=== PATIENT | male | born 1985 | race Caucasian/White ===

== ENCOUNTER 2024-03-31 09:25 | Emergency (ER) | payer OTHER, SELFPAY ==
--- NOTE | 2024-03-31 10:15 | ED.GENMED ---
History of Present Illness
General
Chief Complaint: Skin Problem
Time Seen by Provider: 03/31/24 09:47
History of Present Illness
History of Present Illness:
38-year-old male with history of substance abuse presents to the emergency department for evaluation of a nonhealing ulceration to the right heel. States he self administered a 10-day course of amoxicillin when the ulcer appeared and developed mild
redness. He went to urgent care today and was thus referred to the emergency department. Denies any fevers or chills. He is able to walk without pain
Past History
Past History
ED Past Medical History: None
ED Past Surgical History: None
Social History
Tobacco: Smoker
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
Personal: Single
Living: with family
Employment: Employed
Family History
Family History: Other (Noncontributory)
Review of Systems
Review of Systems
Allergies reviewed?: Yes
All Other Systems: ROS reviewed and negative except as documented in HPI and ROS
Phy Exam
Physical Exam
Physical Exam:
GEN: Well appearing, NAD, WDWN
HEENT: Oral mucosa moist, no scleral icterus
Cardiac: Regular rate
Lung: No respiratory distress, no tachypnea
MSK: No gross deformity or injuries
Skin: Good color, no pallor or jaundice. There is a subcentimeter superficial ulceration to the plantar aspect of the right heel with no surrounding erythema or purulent discharge
Neuro: AO x3, moves all extremities freely
Psych: Calm, cooperative
Course
Orders/Labs/Results
Orders:
Orders
03/31/24 10:59
CR Heel/os Calcis - Right 2 Vw Urgent
Comment:
Reason For Exam: plantar ulceration
03/31/24 11:12
CRP [C-Reactive Protein] Urgent
Complete Blood Count/With Diff Urgent
Comprehensive Metabolic Panel Urgent
ESR [Erythrocyte Sed Rate] Urgent
Abnormal Lab Results
03/31/24
11:12
WBC 4.0 L 10^3/uL
(4.8-10.8)
RBC 4.56 L 10^6/uL
(4.70-6.10)
Hct 38.8 L %
(39.0-52.0)
MPV 11.5 H fL
(7.4-10.4)
Monocytes % 11.3 H %
(1.7-9.3)
Chloride 97 L mmol/L
(98-107)
Carbon Dioxide 33 H mmol/L
(22-30)
Glucose 132 H mg/dl
(70-99)
AST 76 H U/L
(17-59)
ALT 92 H U/L
(0-50)
03/31/24 11:12
03/31/24 11:12
Vital Signs
Initial and Last Documented VS:
Initial Vital Signs
Temp Pulse Resp Pulse Ox
99.1 F 57 18 98
03/31/24 09:35 03/31/24 09:35 03/31/24 09:35 03/31/24 09:35
Last Documented Vital Signs
Temp Pulse Resp BP Pulse Ox
97.7 F 50 18 106/67 100
03/31/24 11:58 03/31/24 11:58 03/31/24 11:58 03/31/24 11:58 03/31/24 11:58
MDM/Problems Addressed
MDM/Problems Addressed:
Labs reassuring, no clinical concern at this time for osteomyelitis. Offloading bandages applied, discussed supportive care, recommend outpatient wound care follow-up. Counseled on drug use cessation but he is adamant that he will not cause any
undue harm with his current usage
*Critical Care Note
Total Time (30-74mins, 75-104mins- exclusive of procedures): Not Applicable
ED Attending Note
-
Portions of this chart may have been created with voice recognition software.� Occasional wrong word or��sound alike� substitutions may have occurred due to the inherent limitations of voice recognition software.
Discharge Plan
Departure
Patient Disposition: Home (Routine Discharge)
Date of Disposition: 03/31/24
Time of Disposition: 11:50
Patient with high blood pressure during this ER visit?: No
Discharge Problem:
Ulcer of right heel
Instructions: Wound Care (DC)
Referrals:
Chilo Go MD [Active] -
Interventions
Interventions:
*Risk Screen - Suicide Last Done: 03/31/24 09:35
*General Assessment Last Done: 03/31/24 09:35
*Neglect/Abuse Screening Last Done: 03/31/24 09:35
*ED COVID-19 Vaccine History Last Done: 03/31/24 12:00
*Nursing Disposition Last Done: 03/31/24 12:02
ED-Skin Assessment Last Done: 03/31/24 12:00
Discharge Date and Time
Discharge Date/Time: 03/31/24 12:05
Print Language: AZERI
[2024-03-31 11:21] LABS: % Basophils 0.8 % (0-2); % Eosinophils 1.5 % (0-6); % Lymphocytes 38.8 % (20.5-51.1); % Monocytes 11.3 % (1.7-9.3); % Neutrophils 47.6 % (42.2-75.2); Absolute Eosinophils 0.1 10^3/uL (0-0.7); Absolute Lymphocytes 1.6 10^3/uL (1.2-3.4); Absolute Monocytes 0.5 10^3/uL (0.1-0.6); Absolute Neutrophils 1.9 10^3/uL (1.4-6.5); Hematocrit 38.8 % (39.0-52.0); Hemoglobin 13.9 g/dL (13.0-18.0); Mean Corp Hgb Conc. 35.8 g/dL (33.0-37.0); Mean Corpuscular Hgb 30.5 pg (27.0-31.0); Mean Corpuscular Volume 85.1 fL (80.0-94.0); Mean Platelet Volume 11.5 fL (7.4-10.4); Nucleated Red Blood Cells % 0 % (-); Platelet Count 169 10^3/uL (130-400); Red Blood Cell Count 4.56 10^6/uL (4.70-6.10); Red Cell Dist. Width 11.9 % (11.5-14.5)
[2024-03-31 11:35] LABS: ALT (SGPT) 92 U/L (0-50); AST (SGOT) 76 U/L (17-59); Albumin 4.3 g/dl (3.5-5.0); Alkaline Phosphatase 57 U/L (38-126); Blood Urea Nitrogen 12 mg/dl (9-20); Calcium 9.8 mg/dl (8.4-10.2); Carbon Dioxide 33 mmol/L (22-30); Chloride 97 mmol/L (98-107); Glucose 132 mg/dl (70-99); Potassium 3.9 mmol/L (3.5-5.1); Sodium 140 mmol/L (135-145); Total Bilirubin 0.4 mg/dl (0.2-1.3); Total Protein 7.3 g/dl (6.3-8.2); eGFR > 60.00
[2024-03-31 11:47] LABS: C-Reactive Protein < 5.00 mg/L (0.0-10.00)
[2024-03-31 11:58] VITALS: BP 106/67
[2024-03-31 13:18] LABS: Erythrocyte Sed Rate 13 mm/hour (0-20)
== END 2024-03-31 12:05 | disposition home or self-care (01) ==
LOC: EMR 09:25
PROVIDERS: Physician Assistant; EMERGENCY PHYSICIAN Emergency Medicine
DX: L97.419 Non-pressure chronic ulcer of right heel and midfoot with unspecified severity (principal); F19.10 Other psychoactive substance abuse, uncomplicated; F17.200 Nicotine dependence, unspecified, uncomplicated
CPT/HCPCS: 99283; 73650; 80053; 85025; 85652; 86140

== ENCOUNTER 2024-12-03 11:30 | Inpatient (IN) | payer OTHER, SELFPAY ==
[2024-12-03] VITALS (47 sets, daily range): BP systolic 84–161; BP diastolic 57–134; PULSE 138–147; BMI 21.5
[2024-12-03 07:35] LABS: Glucose - Point of Care 126 mg/dl (70-99)
--- NOTE | 2024-12-03 08:03 | ED.GENMED ---
History of Present Illness
<Tate Chaudhary PA-C - Last Filed: 12/03/24 10:13>
General
Chief Complaint: Male Genito-Urinary Symptoms
Source: patient
Exam Limitations: none
Time Seen by Provider: 12/03/24 07:43
History of Present Illness
History of Present Illness:
39-year-old male presents via EMS from home where he lives with his parents. Parents noticed confusion and generalized weakness getting worse over the past 2 to 3 days. He is a known IV drug abuser admits to using fentanyl last use was yesterday.
Parents noticed that his urine was Ice-T in color. He notes generalized pain. Parents noted him to be speaking gibberish and not making sense. There was no vomiting. Patient notes pain all over including his back.
Past History
<Tate Chaudhary PA-C - Last Filed: 12/03/24 10:13>
Past History
ED Past Medical History: None
ED Past Surgical History: None
Social History
Tobacco: Smoker
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
Personal: Single
Living: with family
Employment: Employed
Family History
Family History: Other (Noncontributory)
Phy Exam
<Tate Chaudhary PA-C - Last Filed: 12/03/24 10:13>
Physical Exam
Physical Exam:
General: Unwell appearing male no acute respiratory distress
HEENT: Globally poor dentition mucosa moist pupils equal round reactive to light
Heart: Tachycardic but regular no audible murmurs
Lungs: Clear no wheeze
Abdomen is soft nontender
Extremities: Edema noted all extremities
Skin: Positive for multiple scars and track tipton
Neurologic exam: Alert oriented to person and is aware that he is in the hospital. Able to bend at the hip and knee both sides. Able to lift both arms up.
Sepsis
<Tate Chaudhary PA-C - Last Filed: 12/03/24 10:13>
Sepsis Screening
Sepsis Assessment: Sepsis
Sepsis Screen
Sepsis Screen: Sepsis
Date: 12/03/24
Time: 10:13
<Modesto Bartlett DO - Last Filed: 12/03/24 10:15>
Sepsis Screen
Sepsis Screen: Sepsis
Date: 12/03/24
Time: 10:15
Course
<Tate Chaudhary PA-C - Last Filed: 12/03/24 10:13>
Orders/Labs/Results
Orders:
Orders
12/03/24 07:41
EKG [Electrocardiogram (*1)] Urgent
Reason for Study: Tachycardia
EKG- Treatment ONCE
12/03/24 07:57
Straight cath- Treatment ONCE
0.9% Sodium Chloride 1000 ml [Nss] 1,000 ml IV BOLUS
12/03/24 07:59
CT Head W/o Iv Contrast Urgent
Comment:
Reason For Exam: altered mental status
12/03/24 08:20
Complete Blood Count/With Diff Urgent
Lactate Level [Lactic Acid] Urgent
Manual Differential Urgent
Blood Culture Q30M
[place] Source: Blood/Venous
Specimen Description:
12/03/24 08:38
Fentanyl, Urine Urgent
Urinalysis Reflex To Culture Urgent
Date Specimen was Collected: 12/03/24
Time Specimen was Collected: 08:37
Urine Drug Abuse Screen Urgent
Date Specimen was Collected: 12/03/24
Time Specimen was Collected: 08:37
Urine Microscopic Reflex Cult Urgent
Urine Culture Urgent
[place] Source: U
Specimen Description:
Date Specimen was Collected: 12/03/24
Time Specimen was Collected: 08:37
12/03/24 08:44
Add On- LAB Urgent
Tests Added?: urine drug screen
12/03/24 08:59
Promethazine [Phenergan] 25 mg 0.9% Sodium Chloride 50 ml [Nss] 50 ml IV NOW
12/03/24 09:00
Flush (0.9% Sodium Chloride) [Flush (Nss)] See Dose Instructions IV PER PROTOCOL
12/03/24 09:03
CR Chest Portable - 1 View Urgent
Comment:
Reason For Exam: cofusion
Reason Study Needs to be Portable: Unable to Transport
12/03/24 09:10
HYDROmorphone [Dilaudid] 1 mg IV NOW STA
12/03/24 09:11
Acid Fast Culture & Smear Urgent
[place] Source: Csf
Specimen Description:
CSF Cell Count Urgent
CSF Tube Number: 1
Comment: Tube #1
CSF VDRL Reflex To Titer [S] Urgent
Lyme PCR, DNA [S] Urgent
Spinal Fluid Glucose Urgent
Spinal Fluid Protein Urgent
Varicella-Zoster Virus By PCR [S] Urgent
Source: Serum
CSF Culture with Gram Stain Urgent
[place] Source: Csf
Specimen Description:
Fungus Culture Urgent
[place] Source: Csf
Specimen Description:
Gram Stain Urgent
[place] Source: Csf
Specimen Description:
12/03/24 09:13
CefTRIAXone [Rocephin] 2,000 mg IV NOW STA
12/03/24 09:15
Vancomycin 1 Gram/200 ml [Vancocin] 1 gram in 200 ml IV NOW
12/03/24 09:18
0.9% Sodium Chloride 1000 ml [Nss] 1,000 ml IV BOLUS
12/03/24 09:21
Comprehensive Metabolic Panel Urgent
Creatine Phosphokinase Urgent
Magnesium Urgent
Comment: ADD ON
Blood Culture Q30M
[place] Source: Blood/Venous
Specimen Description:
12/03/24 09:28
Sterile Water [Sterile Water For Injection] 20 ml .ROUTE .STK-MED
12/03/24 09:30
ABG [Arterial Blood Gas] Urgent
%Oxygen/Room Air: ra
12/03/24 09:58
EEG [Rapid Point of Care EEG (ED/ICU ONLY)] Q1H
Indications for use:: Altered Mental Status
12/03/24 10:05
Add On- LAB Urgent
Tests Added?: magnesium
Potassium Chloride [KCl] 40 meq 0.9% Sodium Chloride 250 ml [Nss] 250 ml IV NOW
12/03/24 10:14
INFECTIOUS DISEASE CONSULT Routine
Consulting Provider: Maryellen Irene
Was physician already notified: Yes
12/03/24 10:15
NEUROLOGY CONSULT Urgent
Consulting Provider: Earline Abdalla
Was physician already notified: Yes
Abnormal Lab Results
12/03/24 12/03/24 12/03/24
07:33 08:20 08:38
WBC 24.6 H 10^3/uL
(4.8-10.8)
MPV 12.5 H fL
(7.4-10.4)
Abs Neuts (Manual) 21.8 H 10^3/uL
(1.4-6.5)
Band Neutrophils 15 H %
(0-3)
Lymphocytes (Manual) 2 L %
(20-51)
pO2
Potassium
BUN
Creatinine
Glucose
Lactic Acid 4.1 H* mmol/L
(0.7-2.0)
Total Bilirubin
AST
ALT
Alkaline Phosphatase
Creatine Kinase
Albumin
Ur Occult Blood Reflex 3+ A
(Negative)
Leukocyte Esterase Rfl 1+ A
(Negative)
Urine RBC 7-10 A /HPF
(0-2)
Urine Bacteria (Reflex) Moderate A
(Negative)
Urine Albumin (Reflex) 2+ A
(Neg - Trace)
Urine Fentanyl Screen Positive H
(Negative)
Urine Cocaine Screen Positive H
(Negative)
POC Glucose 126 H mg/dl
(70-99)
12/03/24 12/03/24
09:30
WBC
MPV
Abs Neuts (Manual)
Band Neutrophils
Lymphocytes (Manual)
pO2 73 L mmHg
(83-108)
Potassium 3.0 L mmol/L
(3.5-5.1)
BUN 60 H mg/dl
(9-20)
Creatinine 2.0 H mg/dL
(0.7-1.3)
Glucose 124 H mg/dl
(70-99)
Lactic Acid
Total Bilirubin 1.4 H mg/dl
(0.2-1.3)
AST 484 H U/L
(17-59)
ALT 186 H U/L
(0-50)
Alkaline Phosphatase 161 H U/L
(38-126)
Creatine Kinase 998 H U/L
(55-170)
Albumin 3.2 L g/dl
(3.5-5.0)
Ur Occult Blood Reflex
Leukocyte Esterase Rfl
Urine RBC
Urine Bacteria (Reflex)
Urine Albumin (Reflex)
Urine Fentanyl Screen
Urine Cocaine Screen
POC Glucose
12/03/24 08:20
12/03/24 09:21
Vital Signs
Initial and Last Documented VS:
Initial Vital Signs
Temp Pulse Resp BP Pulse Ox
98.0 F 110 23 138/97 98
12/03/24 07:32 12/03/24 07:32 12/03/24 07:32 12/03/24 07:32 12/03/24 07:32
Last Documented Vital Signs
Temp Pulse Resp BP Pulse Ox
98.8 F 101 20 138/97 98
12/03/24 08:41 12/03/24 08:45 12/03/24 08:45 12/03/24 07:32 12/03/24 08:06
<Modesto Bartlett, DO - Last Filed: 12/03/24 10:15>
Orders/Labs/Results
Orders:
Orders
12/03/24 07:41
EKG [Electrocardiogram (*1)] Urgent
Reason for Study: Tachycardia
EKG- Treatment ONCE
12/03/24 07:57
Straight cath- Treatment ONCE
0.9% Sodium Chloride 1000 ml [Nss] 1,000 ml IV BOLUS
12/03/24 07:59
CT Head W/o Iv Contrast Urgent
Comment:
Reason For Exam: altered mental status
12/03/24 08:20
Complete Blood Count/With Diff Urgent
Lactate Level [Lactic Acid] Urgent
Manual Differential Urgent
Blood Culture Q30M
[place] Source: Blood/Venous
Specimen Description:
12/03/24 08:38
Fentanyl, Urine Urgent
Urinalysis Reflex To Culture Urgent
Date Specimen was Collected: 12/03/24
Time Specimen was Collected: 08:37
Urine Drug Abuse Screen Urgent
Date Specimen was Collected: 12/03/24
Time Specimen was Collected: 08:37
Urine Microscopic Reflex Cult Urgent
Urine Culture Urgent
[place] Source: U
Specimen Description:
Date Specimen was Collected: 12/03/24
Time Specimen was Collected: 08:37
12/03/24 08:44
Add On- LAB Urgent
Tests Added?: urine drug screen
12/03/24 08:59
Promethazine [Phenergan] 25 mg 0.9% Sodium Chloride 50 ml [Nss] 50 ml IV NOW
12/03/24 09:00
Flush (0.9% Sodium Chloride) [Flush (Nss)] See Dose Instructions IV PER PROTOCOL
12/03/24 09:03
CR Chest Portable - 1 View Urgent
Comment:
Reason For Exam: cofusion
Reason Study Needs to be Portable: Unable to Transport
12/03/24 09:10
HYDROmorphone [Dilaudid] 1 mg IV NOW STA
12/03/24 09:11
Acid Fast Culture & Smear Urgent
[place] Source: Csf
Specimen Description:
CSF Cell Count Urgent
CSF Tube Number: 1
Comment: Tube #1
CSF VDRL Reflex To Titer [S] Urgent
Lyme PCR, DNA [S] Urgent
Spinal Fluid Glucose Urgent
Spinal Fluid Protein Urgent
Varicella-Zoster Virus By PCR [S] Urgent
Source: Serum
CSF Culture with Gram Stain Urgent
[place] Source: Csf
Specimen Description:
Fungus Culture Urgent
[place] Source: Csf
Specimen Description:
Gram Stain Urgent
[place] Source: Csf
Specimen Description:
12/03/24 09:13
CefTRIAXone [Rocephin] 2,000 mg IV NOW STA
12/03/24 09:15
Vancomycin 1 Gram/200 ml [Vancocin] 1 gram in 200 ml IV NOW
12/03/24 09:18
0.9% Sodium Chloride 1000 ml [Nss] 1,000 ml IV BOLUS
12/03/24 09:21
Comprehensive Metabolic Panel Urgent
Creatine Phosphokinase Urgent
Magnesium Urgent
Comment: ADD ON
Blood Culture Q30M
[place] Source: Blood/Venous
Specimen Description:
12/03/24 09:28
Sterile Water [Sterile Water For Injection] 20 ml .ROUTE .STK-MED
12/03/24 09:30
ABG [Arterial Blood Gas] Urgent
%Oxygen/Room Air: ra
12/03/24 09:58
EEG [Rapid Point of Care EEG (ED/ICU ONLY)] Q1H
Indications for use:: Altered Mental Status
12/03/24 10:05
Add On- LAB Urgent
Tests Added?: magnesium
Potassium Chloride [KCl] 40 meq 0.9% Sodium Chloride 250 ml [Nss] 250 ml IV NOW
12/03/24 10:14
INFECTIOUS DISEASE CONSULT Routine
Consulting Provider: Maryellen Irene
Was physician already notified: Yes
12/03/24 10:15
NEUROLOGY CONSULT Urgent
Consulting Provider: Earline Abdalla
Was physician already notified: Yes
Abnormal Lab Results
12/03/24 12/03/24 12/03/24
07:33 08:20 08:38
WBC 24.6 H 10^3/uL
(4.8-10.8)
MPV 12.5 H fL
(7.4-10.4)
Abs Neuts (Manual) 21.8 H 10^3/uL
(1.4-6.5)
Band Neutrophils 15 H %
(0-3)
Lymphocytes (Manual) 2 L %
(20-51)
pO2
Potassium
BUN
Creatinine
Glucose
Lactic Acid 4.1 H* mmol/L
(0.7-2.0)
Total Bilirubin
AST
ALT
Alkaline Phosphatase
Creatine Kinase
Albumin
Ur Occult Blood Reflex 3+ A
(Negative)
Leukocyte Esterase Rfl 1+ A
(Negative)
Urine RBC 7-10 A /HPF
(0-2)
Urine Bacteria (Reflex) Moderate A
(Negative)
Urine Albumin (Reflex) 2+ A
(Neg - Trace)
Urine Fentanyl Screen Positive H
(Negative)
Urine Cocaine Screen Positive H
(Negative)
POC Glucose 126 H mg/dl
(70-99)
12/03/24 12/03/24
09:21 09:30
WBC
MPV
Abs Neuts (Manual)
Band Neutrophils
Lymphocytes (Manual)
pO2 73 L mmHg
(83-108)
Potassium 3.0 L mmol/L
(3.5-5.1)
BUN 60 H mg/dl
(9-20)
Creatinine 2.0 H mg/dL
(0.7-1.3)
Glucose 124 H mg/dl
(70-99)
Lactic Acid
Total Bilirubin 1.4 H mg/dl
(0.2-1.3)
AST 484 H U/L
(17-59)
ALT 186 H U/L
(0-50)
Alkaline Phosphatase 161 H U/L
(38-126)
Creatine Kinase 998 H U/L
(55-170)
Albumin 3.2 L g/dl
(3.5-5.0)
Ur Occult Blood Reflex
Leukocyte Esterase Rfl
Urine RBC
Urine Bacteria (Reflex)
Urine Albumin (Reflex)
Urine Fentanyl Screen
Urine Cocaine Screen
POC Glucose
12/03/24 08:20
12/03/24 09:21
Vital Signs
Initial and Last Documented VS:
Initial Vital Signs
Temp Pulse Resp BP Pulse Ox
98.0 F 110 23 138/97 98
12/03/24 07:32 12/03/24 07:32 12/03/24 07:32 12/03/24 07:32 12/03/24 07:32
Last Documented Vital Signs
Temp Pulse Resp BP Pulse Ox
98.8 F 101 20 138/97 98
12/03/24 08:41 12/03/24 08:45 12/03/24 08:45 12/03/24 07:32 12/03/24 08:06
<Tate Chaudhary PA-C - Last Filed: 12/03/24 10:13>
MDM/Problems Addressed
Differential Diagnosis Includes:
Generalized weakness confusion in the setting of an IV drug abuser. He is tachycardic. Oral temp is normal will check rectal temp. Consider sepsis versus rhabdomyolysis. CT head ordered. Check lactic acid and blood cultures. Discussed with
emergency room attending
<Tate Chaudhary PA-C - Last Filed: 12/03/24 10:13>
*Pulse Oximetry
SaO2: 98
Oxygen Mode of Delivery: Room air
<Modesto Bartlett DO - Last Filed: 12/03/24 10:15>
*Radiology
Radiology exam reviewed: preliminary read by ED provider
*Pulse Oximetry
Patient hypoxic: no
*Critical Care Note
Total Time (30-74mins, 75-104mins- exclusive of procedures): 45
<Tate Chaudhary PA-C - Last Filed: 12/03/24 10:13>
Update Note
Update Note:
White blood cell count 24,000. Lactic acid 4.1. CT of the head reviewed and shows possible foci of petechial hemorrhages. Chest x-ray clear. Patient given 2 L of fluid. Was considering lumbar puncture however after discussion with emergency
room attending we will hold off given CT findings. Antibiotics ordered by emergency room attending. Will admit to hospital. Drug screen positive for fentanyl and cocaine.
ED Attending Note
<Tate Chaudhary PA-C - Last Filed: 12/03/24 10:13>
-
Portions of this chart may have been created with voice recognition software.� Occasional wrong word or��sound alike� substitutions may have occurred due to the inherent limitations of voice recognition software.
<Modesto Bartlett DO - Last Filed: 12/03/24 10:15>
ED Attending Note
Patient seen and examined by attending physician: Yes
I performed the substantive portion of visit, reviewed & personally made and approve the management plan that is documented in note by myself or RIGOBERTO.: Yes
ED Attending Note:
Seen with TAMARA examined independently 39-year-old male disabled drug user lives with his parents, uses IM fentanyl been in rehab numerous times before mother states about 2 days ago developed fever chills and thought it was the flu, has not kept any
fluids down no drugs for 36 hours or so, here he looks ill he is babbling he is afebrile spitting up, has pain with flexion of the neck
Differential includes bacteremia withdrawal rhabdo CSF infection epidural abscess discitis pneumonia endocarditis etc.
Reviewed my thoughts with family started volume resuscitation, ABG chest x-ray
My initial thought was to do a spinal tap, CT scan noted report reviewed, will hold on LP based upon CT report will proceed with antibiotics and urgent EEG
Discharge Plan
Departure
Patient Disposition: Admit
Date of Disposition: 12/03/24
Time of Disposition: 10:13
Presentation/result/management discussed w/ accepting MD/DO: Hospitalist
Discharge Problem:
Sepsis
Referrals:
Pj Watson MD [Primary Care Provider]
Interventions
Interventions:
*Risk Screen - Suicide Last Done: 12/03/24 07:32
*General Assessment Last Done: 12/03/24 07:32
*Neglect/Abuse Screening Last Done: 12/03/24 07:32
*ED- Fall Risk Assessment Last Done: 12/03/24 07:32
ED-Male Genitourinary Assessment Last Done: 12/03/24 08:42
Discharge Date and Time
Print Language: LATVIAN
--- NOTE | 2024-12-03 08:21 | EDRN ---
Patient's mom states that patient does fentanyl, and father states that his usage has decreased. Patient then stated that he only does fentanyl.
[2024-12-03] MEDS: NSS 1000 IV ×4 (08:27→18:45)
[2024-12-03 08:36] LABS: Hematocrit 43.2 % (39.0-52.0); Hemoglobin 15.9 g/dL (13.0-18.0); Mean Corp Hgb Conc. 36.8 g/dL (33.0-37.0); Mean Corpuscular Volume 81.5 fL (80.0-94.0); Nucleated Red Blood Cells % 0 % (-); Platelet Count 155 10^3/uL (130-400); Red Cell Dist. Width 12.8 % (11.5-14.5)
[2024-12-03 08:49] LABS: Urine Character Clear (Clear)
[2024-12-03 09:03] LABS: Absolute Neutrophils -Man Diff 21.8 10^3/uL (1.4-6.5)
[2024-12-03 09:04] LABS: Normal RBC Morphology Yes; Platelets Checked Yes; Total Cells Counted 100
[2024-12-03 09:06] LABS: Urine Squamous Cell 0-2 /LPF (Few)
[2024-12-03] MEDS: PHENERGAN 51 MG IV (09:24)
[2024-12-03 09:36] LABS: B.E. 0 mmol/L; HCO3 23.9 mmol/L (21-28); O2 Saturation % 97.3 % (94-98); PCO2 36 mmHg (35-48); PO2 73 mmHg (83-108)
[2024-12-03] MEDS: DILAUDID 1 MG IV ×3 (09:36→14:49)
[2024-12-03 09:56] LABS: AST (SGOT) 484 U/L (17-59); Albumin 3.2 g/dl (3.5-5.0); Alkaline Phosphatase 161 U/L (38-126); Blood Urea Nitrogen 60 mg/dl (9-20); Calcium 8.6 mg/dl (8.4-10.2); Carbon Dioxide 24 mmol/L (22-30); Chloride 101 mmol/L (98-107); Estimated Creatinine Clearance 56 ml/min; Glucose 124 mg/dl (70-99); Potassium 3.0 mmol/L (3.5-5.1); Sodium 137 mmol/L (135-145); Total Protein 6.3 g/dl (6.3-8.2); eGFR 43.27
[2024-12-03 10:07] LABS: ALT (SGPT) 186 U/L (0-50)
--- NOTE | 2024-12-03 10:12 | CON.NEURO ---
Consultation
Order
Date of Consultation: 12/03/24
Requesting Provider:
Reason for Consult:
Neurology Consultation Note.
HPI: This is a 39-year-old right-handed man who presented to [facility] on 12/03/2024 with encephalopathy.
According to patient's mother Mr. Alonzo was in his usual state of health until Wednesday. On , he began complaining of whole-body pain while still communicating normally. That evening, he reported feeling dizzy, which his parents initially
attributed to a possible flu. Janj-its-qepiohz pain medications (ibuprofen and acetaminophen) were administered but provided little relief. By Wednesday morning, the pain had intensified significantly, rendering the patient unable to stand, hold his
head up, or lift his arms. Even slight touch elicited complaints of excruciating pain.
The patient's mental status deteriorated on Wednesday, with his speech becoming incoherent and described as 'gibberish' by his parents. He lost the ability to communicate his need to use the restroom, initially using a bucket when prompted but later
becoming incontinent. The patient has been unable to eat normally since the onset of symptoms, with his mother reporting only being able to spoon-feed him small amounts of custard.
The patient has a history of substance use, including past IV heroin use and current fentanyl use (reportedly intramuscular). He also vapes and drinks alcohol. The patient experienced fever at home, though the exact temperature was not specified.
ER VS: 138/97, 110, afebrile.
EKG:NSR, ventr rate-97, QTc Int : 535 ms
PDMP:none
Labs: WBCs�24.6, normal sodium, creatinine�2.0, glucose�124, lactic acid�4.1, bilirubin�1.4, AST�484, ALT�186, alk phos�161, creatinine kinase�998.
UA�positive RBCs, leukocyte esterase 1+, occult blood. Urine tox�positive for fentanyl.
CXR: unremarkable
CT head wo contrast-Possible cortical petechial hemorrhages in the left frontal lobe and left occipital lobe. Possible small old infarct, periventricular small vessel ischemic disease or edema due to underlying mass in the left occipital lobe.
MAR: Ceftriaxone 2 g,, vancomycin, hydromorphone 1 mg given at 9:36 AM today,
PMH: Opioid use disorder
PSH:jaw wiring', hernia surgery
SH: single; lives with parents; unemployed; does not drive; vapes, high school graduate
FH:Mother: Breast cancer, diabetes, hypertension, hypercholesterolemia; Father: Hypertension, hypercholesterolemia, diabetes
All:NKDA
ROS: Positive for encephalopathy, allodynia
General: Well developed. In no acute distress.
Cardio: Regular rate and rhythm without murmur. Extremities are without cyanosis or edema.
Neuro:
Mental Status: Alert, attends to examiner. Moderate to severe expressive and receptive aphasia. Does not follow requests.
Cranial Nerves: Orthophoric primary gaze. Pupils 4mm, reactive to light. Horizontal EOMs full. BTT L<R?. No clear facial weakness. Intermittent mild dysarthria.
Motor: Increased motor tone at the wrists.
Reflexes: Limited exam due to tremor appears to be hyperreflexic with clonus at the ankles.
Sensory: Generalized allodynia
Coordination: Postural tremor in upper and lower extremities.
Gait: deferred
Assessment and Plan:
I. Multifactorial encephalopathy (toxic, metabolic, infectious)
II. Left occipital edema vs infarct
III. Opioid use disorder
IV. Prolonged QTc interval
- Telemetry monitoring
- Seizure precautions
- Start thiamine IV
- Routine EEG
- Ativan 2 mg IV PRN for seizures lasting over 2 mins.
- Brain MRI with and without krystle NEERU
- Please check Tylenol level, trend CK, ammonia TFTs, Lyme, HIV, vitamin B12
- Addiction psychiatry consult
- ID consult
I personally reviewed all radiology and labs along with past medical records pertinent to current medical problems. Total time spent in patient care is 60 minutes.
Thank you for allowing us to participate in the care of this patient. We will continue to follow. Please do not hesitate to contact us with any questions or concerns.
Subjective/Objective
Subjective Data
Date of Service: December 03, 2024
Objective Data
Vital Signs
Temp Pulse Resp BP Pulse Ox
37.1 C 101 20 138/97 98
12/03/24 08:41 12/03/24 08:45 12/03/24 08:45 12/03/24 07:32 12/03/24 08:06
Lab Results
12/03/24 08:20
12/03/24 09:21
Sodium 137 mmol/L (135-145) 12/03/24 09:21
Potassium 3.0 mmol/L (3.5-5.1) L 12/03/24 09:21
BUN 60 mg/dl (9-20) H 12/03/24 09:21
Glucose 124 mg/dl (70-99) H 12/03/24 09:21
Calcium 8.6 mg/dl (8.4-10.2) 12/03/24 09:21
Ur Buprenorphine Negative (Negative) 12/03/24 08:38
Patient Allergies
No Known Drug Allergies Allergy (Verified 04/23/15 12:01)
Unknown
Medications
-
Active Medications
Generic Name Dose Route Start Last Admin
Trade Name Freq PRN Reason Stop Dose Admin
Vancomycin HCl 1 gram in 200 mls @ 200 mls/hr 12/03/24 09:15
Vancocin IV 12/03/24 10:14
NOW STA
Potassium Chloride 40 meq/ 270 mls @ 67.5 mls/hr 12/03/24 10:05
Sodium Chloride IV 12/03/24 14:04
NOW STA
Sodium Chloride 0 flush 12/03/24 09:00
Sodium Chloride 0.9% (Flush) Syringe IV 12/31/24 08:59
PER PROTOCOL JENNIFER
[2024-12-03] MEDS: ROCEPHIN 2000 MG IV (10:14)
[2024-12-03 10:16] LABS: Magnesium 2.1 mg/dl (1.6-2.3)
--- NOTE | 2024-12-03 10:40 | CM ---
CM reviewed chart, met with pt and his parents bedside in ED. Lives with parents, 2 story home, [address].
Independent in ADLs, personal care and ambulation at baseline. NO DME. NO hx VN/SNF.
Does admit to using Fentanyl, UDS positive Fentanyl and Cocaine
PCP: Pj Watson listed, parents unsure if this is correct
Pharmacy: [facility] [place]
CM will continue to follow for discharge planning needs
[2024-12-03] MEDS: KCL 270 MEQ IV ×2 (11:03→17:32)
[2024-12-03] MEDS: VANCOCIN 540 MG IV (11:03)
--- NOTE | 2024-12-03 11:53 | HPS.HSE ---
Family Physician
-
Family Physician: Pj Watson MD
Chief Complaint
-
Confusion
History of Present Illness
39-year-old man presents via EMS from home where he lives with his parents. His parents noticed confusion and generalized weakness becoming worse over the past 2 to 3 days. He is a known IV drug abuser admits to using fentanyl, with last use being
yesterday. His parents also saw that his urine was Ice-T in color. In the ER, he said he had generalized pain. His parents also reported that he was speaking gibberish and not making sense. There was no vomiting. Patient notes that he
complaints of pain all over including his back. At the time of my interview, he was confused and unable to provide more of a history.
Medical History
Past Medical History
Past Medical History: Reports Other (polysubstance depence and abuse)
Additional Past Medical History:
polysubstance abuse
MRSA bacterimia
Past Surgical History: Reports None
Social History
Unable to obtain full social history at this time due to: Acuity
Family History
Family History: Not pertinent
Allergies / Home Medications
Allergies reflects when Allergies were last updated in [facility].
Home Medications with original date entered in [facility]
Allergy/Medication List:
Allergies
Allergy/AdvReac Type Severity Reaction Status Date / Time
No Known Drug Allergies Allergy Unknown Verified 12/03/24 11:44
Home Medications
Fiber-Caps (psyllium husk) 500 mg PO DAILY 12/03/24
Review of Systems
-
Unable to obtain full review of systems at this time due to: Acuity
Physical Exam
Vital Signs
Vital Signs
Temp Pulse Resp BP Pulse Ox
98.8 F 103 21 132/84 99
12/03/24 08:41 12/03/24 11:30 12/03/24 11:30 12/03/24 11:00 12/03/24 10:15
Physical Exam
General: Well Developed, Well Nourished, Appears in Distress, Fever and Appears Chronically Ill
HEENT: Moist mucous membranes, Nose Appears Normal and Ears Appear Normal; No Good Dentition
Respiratory: Clear
Cardiac: S1/S2 and Regular Rhythm
GI: Soft, Non Tender and Non Distended
Musculoskeletal: No Clubbing and No Cyanosis
Skin: Warm and Dry
Neuro: Awake and Alert
Psych: Confused and Agitated
Laboratory Results
-
12/03/24 08:20
12/03/24 09:21
Laboratory Results
pH 7.43 (7.35-7.45) 12/03/24 09:30
pCO2 36 mmHg (35-48) 12/03/24 09:30
pO2 73 mmHg (83-108) L 12/03/24 09:30
HCO3 23.9 mmol/L (21-28) 12/03/24 09:30
Lactic Acid 4.1 mmol/L (0.7-2.0) H* 12/03/24 08:20
Total Bilirubin 1.4 mg/dl (0.2-1.3) H 12/03/24 09:21
AST 484 U/L (17-59) H 12/03/24 09:21
ALT 186 U/L (0-50) H 12/03/24 09:21
Alkaline Phosphatase 161 U/L (38-126) H 12/03/24 09:21
Data Reviewed
-
Lab Data: Labs Reviewed by me
Impression/Plan
-
IMPRESSION:
39 man with confusion and h/o polysubstance abuse. Notable findings:
WBC 24.6
K 3.0
BUN/Creat 60/2.0
AST/ALT 484/186
UA appears infected
CK 998
Tox + for fentanyl and cocaine
CT shows possible brain mass
PLAN:
1. Sepsis, with Lactic acid 4.1, WBC 24.6, source could be IV/IMDU or Urine, or teeth
IV saline per sepsis protocol
Blood cultures
Broad spectrum abx
ID consult
Echo
2. Probable Rhabdo with CK 998, AST/ALT 484/186
High volume saline
Check daily and follow trend
3. Confusion - LP deferred given possible mass seen on CT
Neuro consult
MRI in am
psych consult when medically stable
4. Polysubstance use/abuse with probable withdrawal
Opioid W/D protocol
Psych consult when medically stable and able to engage in interview
5. Low K - likely decrease PO intake
Replete
Check daily, replee as needed.
Full code
VCD for DVTp
--- NOTE | 2024-12-03 12:58 | PHA.VAN.IN ---
Assessment
- Assessment
Renal Function: SCR Appears Elevated from baseline (2.0)
Maximum Temperature: 98.8
Minimum Temperature: 98
Concomitant Antimicrobials: piperacillin/tazobactam
Historical Micro: History of MRSA infection (05.11.2011)
Plan
- Plan
Initial / Loading Dose: vancomycin 2000 mg x 1
Maintenance Regimen: dose by level
Monitoring: random level ordered for 12/04 @ 0600
Pharmacokinetics Vancomycin I
- -
Patient Age: 39
Patient Sex: Male
Vancomycin Day #: 1
Indication: Bacteremia
Requesting Provider: Dr. Fofana
Pertinent Antimicrobial Allergies:
nkda
Height / Weight:
Height 6 ft 2 in
Actual Weight 77.8 kg
IBW in k.2
Pertinent Past Medical History: IV drug use
- Vital Signs / Lab Results
Temp Pulse Resp BP Pulse Ox
98.8 F 122 19 139/85 96
12/03/24 08:41 12/03/24 12:30 12/03/24 12:30 12/03/24 12:00 12/03/24 12:30
Lab Results - Hematology
12/03/24
08:20
WBC 24.6 H
Band Neutrophils 15 H
Lab Results - Chemistry
12/03/24 12/03/24
08:20 09:21
BUN Cancelled 60 H
Creatinine Cancelled 2.0 H
Estimated Creat Clear Cancelled 56
Albumin Cancelled 3.2 L
12/03/24 12/03/24
08:20 12:25
Lactic Acid 4.1 H* 3.3 H
Lab Results - Urine
12/03/24
08:38
Urine Nitrite (Reflex) Negative
Leukocyte Esterase Rfl 1+ A
Urine WBC (Reflex) 3-5
Ur Squamous Epith Cells 0-2
Urine Bacteria (Reflex) Moderate A
[2024-12-03] MEDS: THIAMINE INJECTION 100 MG IV (13:28)
[2024-12-03] MEDS: ZOSYN 100 IV ×3 (13:32→23:33)
--- NOTE | 2024-12-03 13:50 | EDRN ---
MRI called for this patient today. Patient has vomited about five times in the past hour to 1.5 hours. Patient not safe to go to MRI today. Parents made aware and Dr. Fofana also made aware.
[2024-12-03] MEDS: SUBUTEX 8 MG SL (13:52)
--- NOTE | 2024-12-03 13:55 | CON.ID ---
Consultation
-
Date/Time Consultation Requested: December 03, 2024 1014
Date/Time Consultation Performed: December 03, 2024 1400
Requesting Provider: Dr. Jim Fofana
Performing Provider: Dr. Maryellen Irene
Reason for Consultation: IV drug user, change in mental status
Chief Complaint / Past History
Chief Complaint
Change in mental status
History of Present Illness
History obtained from the patient's parents at bedside since patient currently unable to provide a full meaningful history. He is a 39-year-old male with polysubstance abuse who is currently skin/muscle popping with fentanyl who was brought to the
ER today for worsening mental status. Parents noted patient shaking on November 30 attributing to drug withdrawal. He was complaining of diffuse body pain. Patient's mental status was fine at that time. However he continued to decline,
unable to ambulate. Yesterday noted to have confusion and change in mental status. Per father, patient was speaking in [place] last night. This morning speech was incoherent. No fever at home. Patient feels cold by touch. In the ER afebrile.
White count 24.6 with bandemia. Chest x-ray negative. CT head scan shows possible cortical petechial hemorrhage and possible mass occipital lobe. Urine drug screen positive for cocaine and fentanyl. Parents are not aware that he is currently
using cocaine. Last fentanyl use was yesterday. Blood cultures obtained. He is currently on vancomycin and Zosyn. TTE has been ordered. In ED he vomited x 4. No cough. No ill contacts. Patient stays inside majority of the time.
Past History
Additional Past Medical History:
polysubstance abuse; fentanyl muscle popping
h/o IV heroine
h/p strep virdians bacteremia (2010)
hx MRSA soft tissue abscesses (2010)
Additional Past Surgical History:
hernia repair
bilateral mandibular fracture wiring
Allergy History:
No Known Drug Allergies Allergy (Verified 12/03/24 11:44)
Unknown
Medications Reviewed: Yes
Current Antibiotics:
Zosyn
Vancomycin
Social History
Tobacco: Vaping
Alcohol: None
Drug: Former User (IV heroin), Cocaine and Other (Fentanyl popper)
Personal: Single
Living: With Family
Employment: Not Employed
Review of Systems
Review of Systems
Unable to obtain as patient currently confused.
Vital Signs
Temp Pulse Resp BP Pulse Ox
98.8 F 123 27 147/105 97
12/03/24 08:41 12/03/24 13:30 12/03/24 13:30 12/03/24 13:30 12/03/24 13:30
Physical Exam
Physical Exam
Constitutional: Acutely Ill
Head: Other (No frontal or max or sinus tenderness)
Oral: Poor Dentition
Cardiovascular: S1/S2 and Other (Tachycardic)
Pulmonary: Clear
Gastrointestinal: Soft, Non Tender, Non Distended and Normal Bowel Sounds
Extremities: Negative Edema
Skin: Other (Bilateral lower extremities multiple scabs from injection use)
Neurological: Tremors (whole body shaking) and Other (Incoherent speech); Negative Meningeal Signs
Psychological: Confused
Lab / Diagnostic Study Results
12/03/24 08:20
12/03/24 09:21
Total Counted 100 12/03/24 08:20
Abs Neuts (Manual) 21.8 10^3/uL (1.4-6.5) H 12/03/24 08:20
Segmented Neutrophils 74 % (42-75) 12/03/24 08:20
Band Neutrophils 15 % (0-3) H 12/03/24 08:20
Lymphocytes (Manual) 2 % (20-51) L 12/03/24 08:20
Lactic Acid 3.3 mmol/L (0.7-2.0) H 12/03/24 12:25
Ur Squamous Epith Cells 0-2 /LPF (Few) 12/03/24 08:38
Microbiology Results
Micro:
12/03/24 09:21 Blood Culture - Pending
Blood/Venous
12/03/24 08:38 Urine Culture - Pending
Urine
12/03/24 08:20 Blood Culture - Pending
Blood/Venous
12/03/24 CXR: Clear lungs.
12/03/[address]: Possible cortical petechial hemorrhages in the left frontal lobe and left occipital lobe. Possible small old infarct, periventricular small vessel ischemic disease or edema due to underlying mass in the left occipital lobe.
Assessment / Plan
# Acute encephalopathy
# Weakness
# Leukocytosis/bandemia
# Polysubstance abuse (cocaine and fentanyl skin/muscle popper)
# Drug withdrawal
# hx MRSA
- CT head possible petechial hemorrhage
- Concern for IE with TRAVEL PTA septic emboli
- For brain MRI
- Agree with TTE
- Follow blood cultures
- Continue with Vancomycin and Zosyn for now.
- (I dc'd serum Lyme PCR ordered by neurologist, not appropriate test for Lyme disease. In addition, pt's condition is not due to Lyme)
- Monitor closely.
- Trend wbc, temps.
[2024-12-03 14:47] LABS: Acetaminophen < 10 ug/ml (10-30)
[2024-12-03 14:52] LABS: Glucose - Point of Care 121 mg/dl (70-99)
--- NOTE | 2024-12-03 14:53 | EDRN ---
Dr. Fofana at bedside for reassessment.
[2024-12-03] MEDS: DILAUDID 2 MG IV ×4 (15:10→20:20)
[2024-12-03] MEDS: BELBUCA 300 MCG BUCCAL ×3 (15:30→23:33)
--- NOTE | 2024-12-03 15:33 | CON.INTV ---
Consultation
Consultation Request
Date/Time Consultation Requested: 12/03
Date/Time Consultation Performed: 12/03
Reason for Consultation: Critical care
Medical History
-
History of Present Illness:
History primarily obtained from the parents at the bedside, reviewing with the ED staff, reviewing the records. Patient is unable to give significant history as he is currently tremulous, with nausea, dry heaving. Patient is a 39-year-old male
with history of significant drug use since the age of 20 according to the family. He uses fentanyl pretty much on a daily basis. Family states that he had fevers on prior to admission and complained of generalized bodyaches, joint pains.
They thought it was the flu. Since then symptoms worsened to the point where over the last few days he has had change in mental status, tremulous, and now speaking gibberish. For this reason they brought him into [facility]. Upon arrival
to [facility], afebrile, pulse 110, breathing at 23, blood pressure 138/97, 98%. Patient was given Phenergan, Dilaudid, ceftriaxone, vancomycin, IV fluids. Neurology was consulted. Head CT obtained which was abnormal with multiple small
lesions, possible foci of petechial hemorrhage. Patient was given additional 2 L of fluid. Talk screen positive for fentanyl and cocaine. Patient was given Dilaudid additional doses along with buprenorphine 8 mg. Patient developed worsening
tremor, persistent diaphoresis and emesis. We are asked to help from critical care standpoint
.
PMH: Polysubstance abuse, history of bacteremia 2010, daily IV fentanyl use
Past Medical History
Past Medical History: None (See above)
Past Surgical History: None (See above)
Social History
Tobacco: Vaping
Alcohol: Occasional
Drug: Cocaine and IVDA (Daily fentanyl since the age of 20)
Personal: Single
Living: With Family (Lives with parents)
Employment: Not Employed
Family History
Family History: Other (Sister is healthy)
Allergies / Home Medications
Allergies
Allergy/AdvReac Type Severity Reaction Status Date / Time
No Known Drug Allergies Allergy Unknown Verified 12/03/24 11:44
Home Medications
�Medication �Instructions �Recorded �Confirmed �Last Taken �Type
Fiber-Caps (psyllium husk) 500 mg PO DAILY 12/03/24 12/03/24 Unknown History
Review of Systems
-
Unable to Obtain full review of systems at this time due to: Acuity
History Source: Family
Vitals / Labs / Diagnostic Testing
Vital Signs
Temp Pulse Resp BP Pulse Ox
98.8 F 132 32 132/90 97
12/03/24 08:41 12/03/24 14:30 12/03/24 14:30 12/03/24 14:00 12/03/24 14:30
Lab Data
12/03/24 08:20
12/03/24 09:21
Laboratory Results
12/03/24
09:30
pH 7.43
pCO2 36
pO2 73 L
HCO3 23.9
O2 Delivery Level
Diagnostic Testing:
Physical Exam
-
HEENT: Normocephalic
Cardiovascular: S1/S2, Regular Rhythm (Tachycardic) and Peripheral Edema (No edema. Multiple injection sites)
Respiratory: Wheeze (no audible), Rhonchi (no audible) and Other (Tremulous, difficult exam)
GI: Soft and Non Distended
Neurology: Awake, Alert, No Motor Deficits (He does move extremities) and Other (Speaks occasional 1 or 2 word answers but otherwise difficult to understand when he speaks)
Skin: Other (Multiple injection sites in his lower extremities)
General: Other (Tremulous with nausea)
Exam:
Exam was limited due to active dry heaving with bucket, mother at bedside
Assessment
-
39-year-old male with history of polysubstance abuse, presents with 4 days of fevers, progressive 2 days of tremors, nausea/emesis on day of admission found to have confusion, suspected sepsis, multiple brain lesions, transaminitis, rhabdomyolysis.
Patient treated with IV antibiotics, IV fluids, withdrawal protocol with Dilaudid, buprenorphine in the ED. Also found to have prolonged QT. Admitted to ICU for further management
Sepsis
TME, confusion x [address] with multiple petechial hemorrhages left frontal lobe, left occipital lobe
Questionable occipital mass vs old stroke, 1.3 cm
Fevers since 11/30
Nausea/emesis x 24 hours
Leukocytosis
15% bandemia
Metabolic acidosis, elevated lactate
Acute renal insufficiency, creatinine 2.0
Acute transaminitis
Acute rhabdomyolysis
Hypokalemia
Abnormal UA
Microscopic hematuria, 7-10 red cells
Positive tox screen
Fentanyl, cocaine
Hypertension, tachycardia
Prolonged QTc 535 on admission EKG
Conditions present prior to admission
History of MRSA bacteremia 2010
Right forearm abscess
Right mandibular fracture 2010
Status post closed reduction
Plan/recommendations
At this time, patient is critically ill
Describes history of fevers, chills for 4 days, progressed to nausea/emesis x 24 hours, tremors started 2 days ago
Mother states patient had fentanyl yesterday, has IV drugs on a daily basis since the age of 20
Tox screen also positive for cocaine
Patient has progressed over the past couple hours with more tremors, withdrawal symptoms
Has received ceftriaxone, vancomycin, IV fluids, Dilaudid, buprenorphine 8 mg
Has not been able to get tizanidine due to nausea
Moving forward
Likely combination of sepsis, underlying infection, worrisome for bacteremia in the setting of withdrawal
Initial EKG with prolonged QT noted
Hypokalemia noted, received potassium
Continue with IV fluids
Would recommend NG tube, Balderas catheter
NG tube may be difficult given present nausea but this will be an ongoing effort
Continue with Dilaudid as able
Would repeat EKG, confirm QTc interval
Repeat labs, potassium from 9:00 this morning
Follow electrolytes
Empiric antibiotics, ceftriaxone/vancomycin
Blood culture, urine culture sent
Prior cultures from 2010 from right forearm positive for MRSA
Head CT images are concerning for possible embolic process
Neurology is following
Echocardiogram when able
Daily EKG
Depending on clinical course, high risk for deterioration, requiring intubation
Reviewed with the ED staff
Reviewed with critical care nursing
Reviewed with parents at bedside
TCCT 40 min
[2024-12-03] MEDS: PRECEDEX 100 IV ×2 (16:17→20:22)
[2024-12-03] MEDS: ZANAFLEX 4 MG PO (16:40)
[2024-12-03] MEDS: TYLENOL/FEVERALL 650 MG RECTAL (16:41)
[2024-12-03 16:45] LABS: Albumin 3.4 g/dl (3.5-5.0); Alkaline Phosphatase 167 U/L (38-126); Blood Urea Nitrogen 51 mg/dl (9-20); Calcium 8.8 mg/dl (8.4-10.2); Carbon Dioxide 16 mmol/L (22-30); Chloride 109 mmol/L (98-107); Estimated Creatinine Clearance 59 ml/min; Glucose 108 mg/dl (70-99); Potassium 2.9 mmol/L (3.5-5.1); Sodium 144 mmol/L (135-145); Total Protein 6.6 g/dl (6.3-8.2); eGFR 46.02
[2024-12-03] MEDS: CATAPRES 0.2 MG TUBE ×2 (16:45→23:33)
--- NOTE | 2024-12-03 16:54 | W.PN.UPDATE ---
Addendum entered and electronically signed by Anthony Dangelo MD 12/03/24 18:23:
Reviewed chest x-ray report
ET tube appropriate position
Maintain volume-cycled ventilation, PEEP of 8, can wean down to 5 depending on how he is doing
Repeat ABG later p.m.
Depending on hemodynamics, may require A-line
Original Note:
Update Note
Progress Note Update
Upon arrival to the ICU, heart rate 150s, systolic pressure 160s/130s, patient tremulous, temperature 101.3
Dilaudid 2 mg given, Tylenol rectally given
NG tube placed, Balderas placed significant urine output
Repeat EKG with QTc 457
Labs drawn. Potassium 2.9. Additional 40 mEq via NG tube and IV given
Patient given Zanaflex 4 mg, clonidine 0.2 mg via NG tube once confirmed
Heart rate improved to 130s, blood pressure improved 120s/100s
The patient developed progressive hypoxic respiratory failure, requiring nonrebreather
Patient was intubated without incident
ET tube set at 26 cm, appropriate position per staff chest x-ray
Initial airway pressures 24, PEEP increased to 6 due to desaturation to 78%
Moving forward
Fentanyl drip at 100 mcg, titrate up as needed
Continue with withdrawal protocol, may require up to 300 mcg depending on how he does
Clonidine 0.2 mg, Zanaflex
Repeat EKG later p.m. follow QT
Repeat labs later p.m. follow electrolytes
PICC line
Continue broad-spectrum antibiotics
Extensive update to parents
Reviewed critical illness, potential for multisystem organ failure
All questions answered
Parents appreciative of care
Will provide updates with any changes, they did not want to see him at this time
TCCT 60 min
[2024-12-03] MEDS: KCL 40 MEQ PO (16:55)
[2024-12-03 16:57] LABS: ALT (SGPT) 175 U/L (0-50); AST (SGOT) 467 U/L (17-59)
--- NOTE | 2024-12-03 17:25 | VATNOTE ---
This RN made aware of PICC order via TT at 1648; arrived in ICU to place PICC at 1718 to find patient requiring intubation. Unable to place PICC at this time, will place when patient available.
[2024-12-03] MEDS: SUBLIMAZE 100 IV (17:34)
--- NOTE | 2024-12-03 17:43 | W.PN.ANESINT ---
Addendum entered and electronically signed by Danielle De La Torre CRNA 12/03/24 17:48:
Phenylephrine 200 mcg given post intubation - BP stable after dose
Original Note:
Anesthesia Intubation Note
- Intubation Note
Intubation Note:
Diagnosis: withdrawal/ aspiration
Blade: MAC 4 glidescope
Tube Size: 8.0
Depth: 22cm
Side Taped: right
Drugs Used: propofol 150mg divided doses/ zemuron post intubation
Grade View: I
EtCO2 Present: +
Atraumatic: yes
Attempts: 1
Insertion Start and Stop Time: 1731
SaO2 Pre: 84
SaO2 Post: 88
Glidescope Used: yes
Other Airway Adjustments: no
Pre-Oxygenated: yes
Portable Chest X-Ray: to follow
RSI: no
Suctioned: scant clear
Bilateral Breath Sounds Confirmed: equal B/L
Vent Settings:
Settings per _X__Attending Physician
--- NOTE | 2024-12-03 18:44 | VATNOTE ---
PICC tip SVC per radiology report. PCN Debbi made aware.
--- NOTE | 2024-12-03 19:00 | PTCARENOTE ---
Addendum entered by Nereida Pineda RN 12/04/24 03:19:
Very poor dentition. Feet unkempt, nails not cut, hair dirty.
Original Note:
Received bedside report. Patient is currently intubated on ventilator and received on sedation of Propofol and Fentanyl--titrated for adequate sedation. On IVF, receiving K rider and IV ABx. All tubing changed to PICC left arm. Midline via right
arm. SL site left hand dc'd, catheter intact. #8 ETT, 26cm at the lip, positioned to the right. Oral care rendered, suctioned orally and via ETT for thick clear white secretions. AC 24/TV 550/FiO2 80%/PEEP +5. NGT via right nare to LIS with dark
green/black bile in large amount. Positive pulses x 4 extremities. BLE pedal/ankle edema 1-2+. SCDs bilateral LE. BLE discolored, no open wounds visualized. Patient is grossly diaphoretic, excess linens removed, room temp cooled. Balderas catheter
patent draining cloudy yellow urine. Positive BM, loose, Complete cares rendered with CHG cloths. Balderas care. HOB up 30 degrees. Bed in low and locked position, call cintron within reach. Bilateral soft wrist restraints checked and retied, checked
every 2 hours. Turned every 2 hours.
--- NOTE | 2024-12-03 19:40 | PTCARENOTE ---
New admission from ED around 16:00 ; Admission DX: Sepsis; Acute Renal Failure;
On admission Patient awake, not following commends; moves b/l UE and LE; Pupil +3 equal reactive to light. Poor gag reflex;
- Withdrawal symptoms: visible severe tremors, perfuse sweating
Normal Sinus Rhythm on telemetry S1/S2 +2 edema b/l feet. Lungs course through. Copious oral white thin secretion.
Abdomen soft non-tender. Normal bowel sounds. Vomited x 1 HOB elevated 45 degrees. NJ tube inserted RT nares 70cm . Placement confirmed by Abdominal X-Ray.
Indwelling Balderas inserted. Post insertion 1200 patti clear urine output
-Lines : Rt upper arm mid-line. Left PICC line DL inserted by IV team . Placement confirmed by X-ray. All IV line exchanged
- Patient Intubated, on Fentanyl 100 cc
[2024-12-03 20:47] LABS: B.E. -2.1 mmol/L; HCO3 21.2 mmol/L (21-28); O2 Saturation % 99.6 % (94-98); PCO2 32 mmHg (35-48); PO2 100 mmHg (83-108)
[2024-12-03] MEDS: ZANAFLEX 2 MG TUBE (21:14)
--- NOTE | 2024-12-03 21:40 | PTCARENOTE ---
Temp 101.4F. Dianne FARRELL notified, order received for Tylenol, given. Discussed with Dianne medications ordered, sedation preferred. Diprivan was turned off because discontinued, no order. Precedex titrated per order for patient comfort, vent
dysynchrony.
[2024-12-03] MEDS: TYLENOL ORAL SOLUTION 650 MG PO (22:00)
--- NOTE | 2024-12-03 22:30 | PTCARENOTE ---
Despite Tylenol, temperature continues to climb. 101.9F. Ice packs donned.
[2024-12-03] MEDS: ZANAFLEX 2 MG PO (23:32)
[2024-12-03 23:59] LABS: Glucose - Point of Care 87 mg/dl (70-99)
[2024-12-04] VITALS (46 sets, daily range): BP systolic 100–145; BP diastolic 77–104; PULSE 120; BMI 21.8
--- NOTE | 2024-12-04 | PTCARENOTE ---
Addendum entered by Nereida Pineda RN 12/04/24 01:19:
Dianne FARRELL is aware of persistent temp, HR 130s; Fentanyl and Precedex have been titrated. Oral meds given with cold water via NGT. `
Original Note:
Temp persists, 102.5. Fresh Ice packs. Meds given with cold water. Gown removed and pillow case covering for privacy. BBS with faint scattered rhonchi that improve with suctioning. NGT was placed to suction after clamped for one hour. Continues to
have large volume output from NGT. Again clamped after meds. ST 130s on CM. Opens eyes spontaneously but does not follow commands. Pupils remain quite dilated but reactive to light--he winces and closes his eyes to light. Positive gag and cough
reflexes. Bowel sounds very hypoactive.
[2024-12-04] MEDS: NSS 1000 IV ×2 (00:17→05:00)
[2024-12-04] MEDS: PRECEDEX 100 IV ×4 (00:17→13:56)
[2024-12-04] MEDS: SUBLIMAZE 100 IV ×5 (00:18→23:43)
[2024-12-04 00:27] LABS: Potassium 3.1 mmol/L (3.5-5.1)
[2024-12-04] MEDS: KCL 100 IV (00:36)
[2024-12-04] MEDS: TYLENOL ORAL SOLUTION 650 MG PO ×3 (02:00→19:43)
--- NOTE | 2024-12-04 02:00 | PTCARENOTE ---
Face washed, facial hair trimmed, hair washed with cap, hair combed, pericare, smear BM, skin care, partial linen change, oral care, ETT suctioned for small amount white secretions. Bilateral hands mottled and clammy, wrist restraints are not tight.
BLEs clammy, ? mottled--difficult to assess secondary to brown colored rash and dry skin on feet.
[2024-12-04] MEDS: ZANAFLEX 2 MG TUBE ×3 (03:04→23:26)
[2024-12-04] MEDS: BELBUCA 300 MCG BUCCAL (03:49)
--- NOTE | 2024-12-04 04:00 | PTCARENOTE ---
Fever has slowly come down since last Tylenol administered at 0200. BBS with scattered rhonchi that improves with suctioning. Large amount of secretions via ETT and orally, clear and white orally, yellowish from ETT. UO is slowing. ABG done. Labs
drawn. HR improving as fever has come down some. BP stable. ETT to left. Hands remain mottled but warm. Rest of physical assessment unchanged.
[2024-12-04 04:45] LABS: B.E. -4.8 mmol/L; HCO3 19.5 mmol/L (21-28); O2 Saturation % 100.0 % (94-98); PCO2 33 mmHg (35-48); PO2 212 mmHg (83-108)
[2024-12-04 05:14] LABS: Hematocrit 36.2 % (39.0-52.0); Hemoglobin 13.4 g/dL (13.0-18.0); Mean Corp Hgb Conc. 37.0 g/dL (33.0-37.0); Mean Corpuscular Volume 81.7 fL (80.0-94.0); Platelet Count 124 10^3/uL (130-400); Red Cell Dist. Width 12.3 % (11.5-14.5)
[2024-12-04] MEDS: ZANAFLEX 2 MG PO ×3 (05:32→17:33)
[2024-12-04] MEDS: ZOSYN 100 IV (05:32)
[2024-12-04] MEDS: CATAPRES 0.2 MG TUBE ×4 (05:32→23:26)
[2024-12-04 05:43] LABS: ALT (SGPT) 124 U/L (0-50); AST (SGOT) 276 U/L (17-59); Albumin 2.6 g/dl (3.5-5.0); Alkaline Phosphatase 92 U/L (38-126); Blood Urea Nitrogen 51 mg/dl (9-20); Calcium 8.1 mg/dl (8.4-10.2); Carbon Dioxide 22 mmol/L (22-30); Chloride 113 mmol/L (98-107); Estimated Creatinine Clearance 54 ml/min; Glucose 111 mg/dl (70-99); Potassium 3.9 mmol/L (3.5-5.1); Sodium 149 mmol/L (135-145); Total Protein 5.3 g/dl (6.3-8.2); eGFR 43.27
--- NOTE | 2024-12-04 06:30 | PTCARENOTE ---
Patient opens eyes, does not track RN. Does not follow commands. Sedation lessened. Bed padded, seizure precautions per MD note.
--- NOTE | 2024-12-04 07:07 | PTCARENOTE ---
Report given verbally to oncoming erika, Oma TSAI. Bedside rounds complete. Questions answered.
[2024-12-04] MEDS: BELBUCA BUCCAL ×2 (08:00→12:08)
[2024-12-04] MEDS: THIAMINE INJECTION 100 MG IV (08:08)
--- NOTE | 2024-12-04 08:16 | W.PN.INTV ---
Today's Communication / Plan
Recommendations
- DC IV normal saline
- Initiate Ringer lactate at 150 mL/h
- Change vent settings to 500/24/40%/5
- Chest x-ray, ABG in a.m.
- Follow-up electrolytes closely
- Await MRI
Assessment
-
39-year-old male with history of polysubstance abuse, presents with 4 days of fevers, progressive 2 days of tremors, nausea/emesis on day of admission found to have confusion, suspected sepsis, multiple brain lesions, transaminitis, rhabdomyolysis.
Patient treated with IV antibiotics, IV fluids, withdrawal protocol with Dilaudid, buprenorphine in the ED. Also found to have prolonged QT. Admitted to ICU for further management. Required intubation and mechanical ventilation starting 12/03.
Conditions present prior to admission
History of MRSA bacteremia 2010
Right forearm abscess
Right mandibular fracture 2010
Status post closed reduction
12/04 overview: Patient currently mechanically ventilated, volume AC 550/20/40%/5. Blood gas 7.3 /. Current infusions fentanyl as well as precedex. Normal saline infusing at 200 mL/h.
Assessment and plan
#1. Polysubstance drug use with severe sepsis, bacteremia
- Suspect embolic intracranial cortical petechial hemorrhages
- Lactic acid as high as 6.5, serial lactate down to 2.0, s/p IV hydration, intubation and mechanical ventilation
- Broad-spectrum antibiotic including IV vancomycin, ID service on case, follow-up on cultures
- Preliminary Staph aureus, MRSA and all cultures
- Concern for infective endocarditis, echocardiogram pending
#2. Acute toxic metabolic encephalopathy
- Related to severe sepsis, lactic acidosis, MRSA bacteremia as well as intracranial petechial hemorrhages
- Follow-up MRI pending
- Avoid any antiplatelet or anticoagulant therapy
- Patient required intubation on 12/03 due to worsening encephalopathy
- Neurology consult
#3. Lactic acidosis
- Due to MRSA bacteremia and severe sepsis
- Improving with IV hydration and intubation with mechanical ventilation
#4. Acute renal insufficiency, creatinine 2.0
- Nonoliguric, urine output 4.1 L last 24 hours
- In view of developing hypernatremia and hyperchloremia, discontinue normal saline and begin Ringer lactate at 150 mL/h
#5. Acute transaminitis and Acute rhabdomyolysis
- In the setting of severe sepsis, polysubstance drug use
- Continue IV hydration, currently switched to Ringer lactate
#6. Polysubstance abuse
- Continue clonidine as ordered, buprenorphine protocol when able to take p.o.
- Continue empiric thiamine replacement
#7. QT prolongation
- Suspect in the setting of electrolyte imbalance
- Follow-up EKG shows improving QTc
- Continue to replace potassium as needed
- Follow-up K, mag and phosphorus levels closely
DVT prophylaxis, SCDs. GI prophylaxis with IV PPI.
Critical Care time 52 mins -- The patient is admitted for acute critical illness for the treatment of vital organ failure and/or prevention of further life-threatening conditions. Total care includes time spent in review of history, physical exam,
medications, hemodynamic/ventilator parameters, laboratory data, imaging and discussion with house staff, pharmacy, respiratory therapy, assistant chief engineer, and nursing.
Subjective Dataa
Subjective Data
Date of Service:
Date of Service: December 04, 2024
Subjective:
Patient currently intubated, sedated and mechanically ventilated.
Review of Systems
General: Unobtainable - Sedation
Objective Data
Data Reviewed
Vital Signs / I&O / Oxygen:
Vital Signs
Temp Pulse Resp BP Pulse Ox
100.6 F H 118 26 122/84 99
12/04/24 07:12 12/04/24 08:00 12/04/24 08:00 12/04/24 08:00 12/04/24 08:00
Intake and Output
12/03/24 12/04/24 12/05/24
06:59 06:59 06:59
Intake Total 4159.2 / 4393.2 468 / 468
Output Total 3826 / 3856 60 / 60
Balance 333.2 / 537.2 408 / 408
SaO2 [A/C] 99
SaO2 99
Physical Exam
General: Comfortable
HEENT: Normocephalic
Cardiovascular: S1-S2
Respiratory: Clear and Non-Labored Respirations
GI: Soft and Distended
Neurology: Other (Sedated)
Skin: Warm
Labs/Micro/Reports
Lab Data
12/04/24 04:54
12/04/24 04:54
Laboratory Results
12/03/24 12/03/24 12/04/24
09:30 20:31 04:35
pH 7.43 7.43 7.38
pCO2 36 32 L 33 L
pO2 73 L 100 212 H
HCO3 23.9 21.2 19.5 L
O2 Delivery Level
Microbiology
12/03/24 09:21 Blood/Venous Blood Culture - Preliminary
Positive culture in progress
12/03/24 08:20 Blood/Venous Blood Culture - Preliminary
Positive culture in progress
--- NOTE | 2024-12-04 08:51 | PHA.VAN.FU ---
Vancomycin Assessment / Plan
- Assessment
Renal Function: Stable
WBC's are: Stable
Concomitant Antimicrobials: piperacillin/tazobactam
- Assessment - Therapeutic Drug Monitoring
Random Level: 12.6 - drawn ~18H after 2g loading dose
- Dosing Plan
Dosing by Level: Re-dose today (Vanc 1000mg)
- Monitoring Plan
Trough Level: 12/05 0600
- Follow Up
Pharmacy will continue to follow.
Vancomycin Follow UP
- -
Patient Age: 39
Patient Sex: Male
Vancomycin Day #: 2
Indication: Bacteremia
Requesting Provider: Dr. Fofana / Teto
Pertinent Antimicrobial Allergies:
NKDA
Height / Weight:
Height 6 ft 2 in
Actual Weight 76.8 kg
IBW in k.2
Pertinent Past Medical History: IV JOCELIN
- Vital Signs / Lab Results
Temp Pulse Resp BP Pulse Ox
100.6 F H 119 21 109/79 99
12/04/24 07:12 12/04/24 08:30 12/04/24 08:30 12/04/24 08:30 12/04/24 08:30
Lab Results - Hematology
12/03/24 12/04/24
08:20 04:54
WBC 24.6 H 24.1 H
Band Neutrophils 15 H
Lab Results - Chemistry
12/03/24 12/03/24 12/03/24
08:20 09:21 16:23
BUN Cancelled 60 H 51 H
Creatinine Cancelled 2.0 H 1.9 H
Estimated Creat Clear Cancelled 56 59
Albumin Cancelled 3.2 L 3.4 L
12/04/24
04:54
BUN 51 H
Creatinine 2.0 H
Estimated Creat Clear 54
Albumin 2.6 L
12/03/24 12/03/2412/03/25
08:20 12:25 16:09
Lactic Acid 4.1 H* 3.3 H Cancelled
12/03/24 12/03/24 12/04/24
16:23 20:37 00:00
Lactic Acid 6.5 H* 2.2 H Cancelled
12/04/24
00:07
Lactic Acid 2.0
Lab Results - Urine
12/03/24
08:38
Urine Nitrite (Reflex) Negative
Leukocyte Esterase Rfl 1+ A
Ur Squamous Epith Cells 0-2
Microbiology Results
12/03/24 08:20 Blood Culture - Preliminary
Blood/Venous Positive culture in progress
Gram Stain - Final
12/03/24 09:21 Blood Culture - Preliminary
Blood/Venous Positive culture in progress
Gram Stain - Final
Therapeutic Drug Monitoring
Random Vancomycin 12.6 ug/ml 12/04/24 04:54
--- NOTE | 2024-12-04 09:30 | PTCARENOTE ---
Rec'd care of patient at 0700. Patient intubated and sedated. Opening eyes spontaneously. Pupils equal and reactive; +4mm. Does not follow any commands. Gag, cough, corneal reflexes intact. EEG completed. MRI of brain ordered. ST on tele. Mottling
present in b/l hand. Warm; palpable pulses. Retail Support Specialist aware. +1 edema in b/l LE. Echo ordered. #8.0 ett, 26cm @ the lip. Vent settings: A/C 24/550/8/40%. Lung sounds diminished throughout. Hypo BS. NPO. NGT to LIS. Output decreased from overnight.
Intermittently clamped for meds. Indwelling zambrano catheter for critical I/O. Cristal output; 30-100 cc/hr. IVFs and Precedex infusing through LDL PICC. Fentanyl infusing through right midline. See worklist for full assessment and care.
[2024-12-04] MEDS: NSS IV (10:25)
[2024-12-04] MEDS: MIRALAX 17 GRAMS TUBE (10:31)
[2024-12-04] MEDS: VANCOCIN 200 IV (10:31)
[2024-12-04 10:43] LABS: Magnesium 2.4 mg/dl (1.6-2.3)
--- NOTE | 2024-12-04 11:19 | W.PN.ID1 ---
Date of Service
Date of Service: December 04, 2024
Today's Communication
TTE.
Continue Vanco. DC Zosyn.
Assessment / Plan
# Acute encephalopathy/weakness
# MRSA bacteremia
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
# Fever
# Leukocytosis/bandemia
# Intubated 12/03
# LE
# Polysubstance abuse (cocaine and fentanyl skin/muscle popper)
# Drug withdrawal
# hx MRSA
- CT head possible petechial hemorrhage
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
- For brain MRI when able
- Agree with TTE
- Repeat blood cultures
- Continue with Vancomycin
- DC Zosyn. Avoid Vanco/zosyn combo in setting to LE
- Monitor closely.
- Trend wbc, temps.
- Prognosis guarded
Chief Complaint
-: Clinical Sepsis
Subjective / Review of Systems
Intubated
Vital Signs / Physical Exam
Vital Signs
Vital Signs
Temp Pulse Resp BP Pulse Ox
100.8 F H 118 26 110/82 100
12/04/24 11:06 12/04/24 11:00 12/04/24 11:00 12/04/24 11:00 12/04/24 11:00
Selected Entries
12/03/24
23:45
Temp 102.5 F H
Physical Exam
Constitutional: Acutely Ill
Eyes: Sclera Anicteric
Cardiovascular: Regular Rate and Other (tachycardic)
Pulmonary: Clear
Gastrointestinal: Soft, Non Tender, Non Distended and Normal Bowel Sounds
Extremities: Cyanosis (hands)
Objective Data
Lab Data
Lab Results
12/04/24 04:54
12/04/24 04:54
Estimated Creat Clear 54 ml/min 12/04/24 04:54
Lactic Acid 2.0 mmol/L (0.7-2.0) 12/04/24 00:07
Total Bilirubin 1.5 mg/dl (0.2-1.3) H 12/04/24 04:54
AST 276 U/L (17-59) H 12/04/24 04:54
ALT 124 U/L (0-50) H 12/04/24 04:54
Alkaline Phosphatase 92 U/L (38-126) 12/04/24 04:54
Most recent labs reviewed.
Micro Results:
12/03/24 08:20 Blood Culture - Preliminary
Blood/Venous Staph aureus MRSA
Gram Stain - Final
12/03/24 09:21 Blood Culture - Preliminary
Blood/Venous Positive culture in progress
Gram Stain - Final
12/03/24 18:44 MRSA Screen - Pending
Nose
12/03/24 08:38 Urine Culture - Pending
Urine
12/03/24 CXR: Clear lungs.
12/03/[address]: Possible cortical petechial hemorrhages in the left frontal lobe and left occipital lobe. Possible small old infarct, periventricular small vessel ischemic disease or edema due to underlying mass in the left occipital lobe.
--- NOTE | 2024-12-04 11:27 | EEG.RPT ---
Electroencephalogram Report
Recording
Date of EE12/04/24
Type of EEG: Routine
Length of EEG recordin minutes
Done with Video Recording: Yes
Patient Status: Inpatient
Recording Conditions: Awake and Drowsy
Hyperventilation Performed: No
Photic Stimulation Performed: Yes
Report
LESS THAN 1 HOUR EEG REPORT
LESS THAN 1 HOUR EEG INTERPRETATION:
Moderately abnormal EEG for age due to diffuse bihemispheric slowing
CLINICAL CORRELATION:
This study was suggestive of diffuse cortical dysfunction without focal abnormality. No seizures were recorded.
Clinical correlation is advised.
METHODS:
A 21 channel digitized electroencephalogram (EEG) was performed. The 10/20 international system of electrode placement was used with ECG and lateral/vertical eye movements recorded. Persyst QEEG monitoring was performed.
QUALITY OF STUDY:
Fair due to muscle artifact
ELECTROENCEPHALOGRAPHER IMPRESSION(S):
Background
There was a low amplitude unorganized anterior-posterior voltage gradient of maximal theta, mostly delta frequency
There were no significant asymmetries of background activity noted.
Sleep
Drowsiness present
Photic Stimulation
Failed to activate the record.
ECG
Normal sinus rhythm
--- NOTE | 2024-12-04 11:40 | PTCARENOTE ---
Echo in progress.
[2024-12-04] MEDS: LR 1000 IV ×2 (12:29→21:20)
[2024-12-04] MEDS: PROTONIX IV 40 MG IV (12:29)
[2024-12-04] MEDS: NSS (PRESERVATIVE FREE) 10 ML IV (12:29)
--- NOTE | 2024-12-04 12:30 | PTCARENOTE ---
Systems reviewed. No major changes in assessment. ST on tele. VSS. Core temp up to 100.8, tylenol administered at 1031. Plan for mri of brain.
--- NOTE | 2024-12-04 14:52 | W.RAPID.EEG ---
Rapid EEG
-
Procedure Date: 12/03/24
Results:
Point of Care EEG Procedure Note
Patient name: SURAJ OSEI
Medical ID: [id number]
Date of : 1985
Age: 39
IMPRESSION:
Absence of status epilepticus
Recording 1 Duration: 2024-12-03 10:18:55 - 2024-12-03 11:20:20
Recording Total Time: :01:25 (61 minutes)
Ordering Physician: TURNER
Recording Technique: This EEG was obtained using a 10 lead, 8 channel circumferential rapid EEG with no parasagittal coverage.
Performed with Kamini Valencia Status Epilepticus Monitor, ICD-10 [id number]
Clinical History: SURAJ OSEI is a 39 year old Sepsis patient undergoing EEG to screen for non-convulsive status epilepticus.
Primary Indication: Sepsis
Location: ED
[2024-12-04] MEDS: SUBLIMAZE 50 MCG IV (15:08)
--- NOTE | 2024-12-04 15:45 | CM ---
Addendum entered by Humberto Huitron 12/04/24 16:06:
[facility] notified of need for SA counseling and available services.
Original Note:
Remains intubated, IV/Meds. Discharge POC: TBD based on medical progression.
--- NOTE | 2024-12-04 16:36 | W.PN.HOSP.TC ---
Today's Communication/Plan
-
Assessment / Plan
Assessment / Plan
General: Acutely ill-appearing, intubated and sedated
HEENT: NormoCephalic, ETT in OGT in place, pupils equal
Respiratory: Mechanical breath sounds bilaterally
Cardiac: S1/S2 and Regular Rhythm; No Rub or Gallop
GI: Soft, Non Tender, Non Distended and Normal Bowel Sounds
Musculoskeletal: Bilateral upper extremity edema, no deformity
Skin: Warm and dry, multiple scattered annular scars on bilateral legs and feet
: Balderas in place draining clear yellow urine
Neuro: Sedated, no tremor
Psych: Unable to assess
Mr. Alonzo is a 39-year-old male with a medical history of polysubstance abuse (skin popping with fentanyl) who was admitted after presentation with altered mental status. He was brought in by his parents with tremors and confusion. His mental
status abruptly declined and he was intubated for airway protection. CT brain showed possible left occipital lobe mass. His blood cultures are positive for MRSA. He is currently being managed in the ICU for treatment of encephalopathy and
bacteremia.
Severe sepsis secondary to MRSA bacteremia:
- Suspect related to injection drug use
- Continue antibiotics with vancomycin, ID following
- Echocardiogram pending
- Repeat cultures still positive, continue repeating cultures until sterile
Acute toxic metabolic encephalopathy:
- Likely multifactorial due to bacteremia, opiate withdrawal, and possible brain mass
- CT imaging shows possible left occipital lobe mass
- Further evaluation with MRI brain pending
- Currently mechanically ventilated for airway protection currently with low PEEP and FiO2 requirements, sedated with Precedex and fentanyl, vent management per cuffing machine operator
- Neurology consulted
LE:
- Creatinine 2.0
- Baseline appears to be less than 1
- Suspect related to rhabdomyolysis
- Continue IV fluids with LR
Rhabdomyolysis:
- Continue aggressive IV fluids
Elevated LFTs:
- Suspect due to severe sepsis
- Continue IV fluids and treatment as above
Lactic acidosis:
- Improving with treatment as above, continue to monitor
DVT prophylaxis: SCDs
CODE STATUS: Full code
Total time spent on today's encounter was 45 minutes
Anticipated Discharge: > 48 hours
Subjective/Interval History
-
Date of Service: December 04, 2024
Patient was seen and examined at bedside this morning. Remains intubated and sedated. Mother and sister at bedside. Patient is awaiting eventual MRI.
Objective Data
-
Labs:
Laboratory Results
12/04/24 12/04/24
04:35 04:54
WBC 24.1 H
Hgb 13.4
Hct 36.2 L
Plt Count 124 L
HCO3 19.5 L
Sodium 149 H
Potassium 3.9 D
Chloride 113 H
Carbon Dioxide 22
BUN 51 H
Creatinine 2.0 H
Glucose 111 H
Calcium 8.1 L
Total Bilirubin 1.5 H
AST 276 H
ALT 124 H
Alkaline Phosphatase 92
Vital Signs:
Vital Signs
Temp Pulse Resp BP Pulse Ox
100.8 F H 107 24 123/86 98
12/04/24 11:06 12/04/24 15:00 12/04/24 15:00 12/04/24 15:00 12/04/24 16:25
I&O
12/03/24 12/04/24 12/05/24
06:59 06:59 06:59
Intake Total 4159.2 / 4393.2 1836 / 1836
Output Total 3826 / 3856 385 / 385
Balance 333.2 / 537.2 1451 / 1451
Review of Systems
-
Unable to obtain full review of systems at this time due to: Patient Intubation
Physical Exam
-
General: Intubated
--- NOTE | 2024-12-04 16:41 | W.PN.NEURO.1 ---
Today's Communication / Plan
-
Continue supportive care
Check MRI of brain when possible, the concern is infectious emboli
Neuro Assessment/Plan
Assessment
Ceribell device did not demonstrate epileptiform activity
I. Multifactorial encephalopathy (toxic, metabolic, infectious)
II. Left occipital edema vs infarct
III. Opioid use disorder
IV. Prolonged QTc interval
Plan
Continue supportive care
Check MRI of brain when possible, the concern is infectious emboli
Will follow pending results
Subjective/Objective
Subjective Data
Date of Service: December 04, 2024
Patient unable to fight his own medical history
Objective Data
Vital Signs
Temp Pulse Resp BP Pulse Ox
38.2 C H 107 24 123/86 98
12/04/24 11:06 12/04/24 15:00 12/04/24 15:00 12/04/24 15:00 12/04/24 16:25
Lab Results
12/04/24 04:54
12/04/24 04:54
Sodium 149 mmol/L (135-145) H 12/04/24 04:54
Potassium 3.9 mmol/L (3.5-5.1) D 12/04/24 04:54
BUN 51 mg/dl (9-20) H 12/04/24 04:54
Glucose 111 mg/dl (70-99) H 12/04/24 04:54
Calcium 8.1 mg/dl (8.4-10.2) L 12/04/24 04:54
Phosphorus 4.2 mg/dl (2.5-4.5) 12/04/24 04:54
Ur Buprenorphine Negative (Negative) 12/03/24 08:38
Patient Allergies
No Known Drug Allergies Allergy (Verified 12/03/24 11:44)
Unknown
Review of Systems
-
Unable to obtain full review of systems at this time due to: Patient Intubation
History Source: Patient
All other systems: Reviewed and negative
Physical Exam
-
General: No Apparent Distress, Intubated and Appears Stated Age
Eyes: Round OU and [place] Conjunctivae
HEENT: Anicteric and Moist Mucous Membranes
Neck: Full Range of Motion
Respiratory: No Dyspnea
Cardiac: No JVD
GI: Non-distended
Skin: Unremarkable
Extremities: No Clubbing, No Cyanosis and No Edema
Psych: Unable to Assess
Extended Neurological Exam
Mood & Affect: Unable to Assess
Attention Span & Concentration: Unresponsive to Verbal Stimuli; Negative Awake, Alert or Interactive
Memory: Unable to Assess
Tremor: Hand Tremor Absent and Head Tremor Absent
Involuntary Movement: None
Speech: Unable to Assess
Cranial Nerve II: Left Eye: Pupillary Reactivity Unremarkable, Pupillary Size Unremarkable and Unable to Assess Visual Barboza
Cranial Nerve II: Right Eye: Pupillary Reactivity Unremarkable, Pupillary Size Unremarkable and Unable to Assess Visual Barboza
Cranial Nerves III, IV, : Extraocular Movement: Absent Doll's Eyes and Unable to Assess (Ptosis)
Cranial Nerve V: Facial Sensation: Unable to Assess
Cranial Nerve VII: Facial Symmetry: Normal Facial Symmetry
Cranial Nerves IX, X: Palate Movement: Unable to Assess
Cranial Nerve XI: Shoulder Shrug: Unable to Assess
Cranial Nerve XII: Tongue Protusion: Unable to Assess
Muscle Strength, Overall: Spontaneously Moves (Minimal flickering movements of bilateral lower extremities distally)
Muscle Bulk & Tone: Bulk Unremarkable and Tone Unremarkable
Pronator Drift: Unable to Assess
Cold Sensation: Unable to Assess
Vibration Sensation: Unable to Assess
Touch Sensation: Negative Withdrawal to Pain
Coordination: Unable to Assess
Gait & Station: Unable to Assess
[2024-12-04] MEDS: DIPRIVAN 100 IV (16:46)
--- NOTE | 2024-12-04 17:30 | PTCARENOTE ---
MRI of brain completed. Patient transported back to room at 1620. Patient observed to have nystagmus and trembling in jaw. Broom Bundler at bedside to assess. Cerebell ordered, Precedex dc'd and Propofol drip initiated for potential seizure activity.
Neurologist updated. Fentanyl drip continued. Systems reviewed. Patient continues to not follow any commands. Pupils equal and reactive; +4mm. Gag, cough, corneal reflexes intact. Trace spontaneous movement in b/l LE. ST on tele. Mottled hands
unchanged. Palpable pulses. Edema unchanged. Vent settings: A/C 24/500/5/40%. Lung sounds diminished throughout. Hypo BS. No BM. NGT placed back to LIS. Indwelling zambrano catheter replaced (removed for MRI). CHG bath performed and repositioned for
comfort.
--- NOTE | 2024-12-04 19:10 | PTCARENOTE ---
Addendum entered by Nereida Pineda RN 12/05/24 02:16:
Gag, cough and corneal reflexes present.
Original Note:
Assumed care. Patient received lying in bed, sedated on Propofol and Fentanyl, intubated on a ventilator. Ceribel device in place, no seizure burden. See nursing teacher charted on worklist flowsheet. BBS with coarse rhonchi t/o. ETT suctioned for
small amount of thick white/yellow secretions. Oral suctioning for copious amount of thick clear white secretions. Bilateral soft wrist restraints in place, checked and retied every 2 hours and prn. Balderas catheter in place with cloudy yellow urine
with sediment. Repositioned/turned every 2 hours. Vent settings checked. Orders reviewed, labs reviewed. Right sided Midline capped, flushed. Left sided dual lumen PICC with IVF and sedation infusing. ST low 100s on CM. Low grade fever 100.6F.
Tylenol given. COWS 16, prn Zanaflex given. Oral care, poor dentition. Right lower lip with small scab. Opens eyes but does not follow commands, PERRL at 5mm. No purposeful movement of BLEs, withdraws to pain, no movement noted of BUEs. Bilateral
hands flushed and mottled, good cap refill. Bilateral feet mottled. Extremities warm. HOB up at 30 degrees. NGT via right nare currently clamped. Bed in low and locked position, seizure precautions, call cintron within reach, hourly rounds. Family at
bedside.
--- NOTE | 2024-12-04 21:40 | PTCARENOTE ---
Spoke with Rosalva from [facility]. Someone will be out tonight to review chart.
[2024-12-05] VITALS (40 sets, daily range): BP systolic 115–151; BP diastolic 85–108; BMI 22.6
--- NOTE | 2024-12-05 | PTCARENOTE ---
Reassessed, patient lungs are clear at this time. Continue to suction for copious oral secretions. 0% Seizure burden on ceribell. UO remains borderline. Donte FARRELL made aware. Cathy from [facility] at bedside to assess patient, reviewing chart.
Updated with patient status. Patient seems more anxious. Very tremulous, coughing more, flushed. Diprivan titrated up to 25mcg for patient comfort. Patient mentation unchanged. Low grade temp persists. No other change in patient assessment.
[2024-12-05] MEDS: DIPRIVAN 100 IV ×5 (00:22→19:55)
--- NOTE | 2024-12-05 03:30 | PTCARENOTE ---
BBS with faint scattered rhonchi that improves with suctioning. Oral care, copious oral secretions. Complete cares given, linens changed. Patient markedly tremulous during cares, turning--appears anxious. Tremors not appear to be seizure activity.
Zanaflex given for restlessness, withdrawal symptoms. Patient opens eyes to name called. When I asked if he is in pain it appears as if he mouths 'no.' However, he still does not follow commands. No purposeful spontaneous movement of extremities. ST
on CM. Ceribell removed per protocol since no seizure activity noted.
[2024-12-05] MEDS: LR 1000 IV (03:46)
[2024-12-05 03:58] LABS: B.E. 2.2 mmol/L; HCO3 25.1 mmol/L (21-28); O2 Saturation % 98.1 % (94-98); PCO2 33 mmHg (35-48); PO2 74 mmHg (83-108)
--- NOTE | 2024-12-05 04:25 | PTCARENOTE ---
Despite Zanaflex, patient still appears anxious, restless. Fentanyl bolus prn given per order. Patient calms after Fentanyl bolus. ABG drawn by BUD [place]. Vent settings changed accordingly with AC rate decreased to 20. Temp 100.6F, prn Tylenol given
and ice packs donned to neck and abdomen. Minimal secretions via ETT.
[2024-12-05] MEDS: SUBLIMAZE 50 MCG IV (04:36)
[2024-12-05] MEDS: TYLENOL ORAL SOLUTION 650 MG TUBE ×2 (04:38→19:57)
[2024-12-05 04:44] LABS: ALT (SGPT) 90 U/L (0-50); AST (SGOT) 138 U/L (17-59); Albumin 2.4 g/dl (3.5-5.0); Alkaline Phosphatase 114 U/L (38-126); Amylase 139 U/L (30-110); Blood Urea Nitrogen 61 mg/dl (9-20); Calcium 7.9 mg/dl (8.4-10.2); Carbon Dioxide 28 mmol/L (22-30); Chloride 115 mmol/L (98-107); Estimated Creatinine Clearance 61 ml/min; Glucose 135 mg/dl (70-99); Lipase 588 U/L (23-300); Magnesium 2.5 mg/dl (1.6-2.3); Potassium 3.2 mmol/L (3.5-5.1); Sodium 148 mmol/L (135-145); Total Protein 5.2 g/dl (6.3-8.2); eGFR 49.10
[2024-12-05 04:46] LABS: Triglycerides 479 mg/dl (10-149)
[2024-12-05] MEDS: KCL 100 IV ×2 (04:55→18:59)
[2024-12-05 05:32] LABS: Hematocrit 32.4 % (39.0-52.0); Hemoglobin 11.8 g/dL (13.0-18.0); Mean Corp Hgb Conc. 36.4 g/dL (33.0-37.0); Mean Corpuscular Volume 81.4 fL (80.0-94.0); Nucleated Red Blood Cells % 0 % (-); Platelet Count 121 10^3/uL (130-400); Red Cell Dist. Width 12.6 % (11.5-14.5)
[2024-12-05] MEDS: CATAPRES 0.2 MG TUBE ×3 (05:35→17:39)
[2024-12-05] MEDS: ZANAFLEX 2 MG TUBE ×4 (05:35→23:34)
--- NOTE | 2024-12-05 07:23 | PTCARENOTE ---
Report given verbally to oncoming erika, Oma TSAI. Bedside rounds complete. Questions answered.
[2024-12-05] MEDS: SUBLIMAZE 100 IV ×3 (08:09→21:43)
--- NOTE | 2024-12-05 08:20 | PHA.VAN.FU ---
Addendum entered and electronically signed by Yumiko Hirsch [facility] 12/05/24 16:34:
Will obtain random level this evening to assess if patient's clearance is improving and if supplemental dosing will be required
Original Note:
Vancomycin Assessment / Plan
- Assessment
Renal Function: SCR Decreasing
WBC's are: Stable
In the past 24 hrs, patient has been: Febrile
- Assessment - Therapeutic Drug Monitoring
Random Level: 12.6 - drawn ~17.5H after previous dose of 1g
- Dosing Plan
Dosing by Level: Re-dose today (Vanc 1250mg)
- Monitoring Plan
Random Level: 12/06 0600
- Follow Up
Pharmacy will continue to follow.
Vancomycin Follow UP
- -
Patient Age: 39
Patient Sex: Male
Vancomycin Day #: 3
Indication: Bacteremia
Requesting Provider: Dr. Fofana / Teto
Pertinent Antimicrobial Allergies:
NKDA
Height / Weight:
Height 6 ft 2 in
Actual Weight 79.7 kg
IBW in k.2
Pertinent Past Medical History: IV JOCELIN
- Vital Signs / Lab Results
Temp Pulse Resp BP Pulse Ox
100.6 F H 93 20 134/100 99
12/05/24 04:30 12/05/24 08:00 12/05/24 08:00 12/05/24 08:00 12/05/24 08:00
Lab Results - Hematology
12/03/24 12/04/24 12/05/24
08:20 04:54 04:04
WBC 24.6 H 24.1 H 23.4 H
Band Neutrophils 15 H
Lab Results - Chemistry
12/03/24 12/03/24 12/03/24
08:20 09:21 16:23
BUN Cancelled 60 H 51 H
Creatinine Cancelled 2.0 H 1.9 H
Estimated Creat Clear Cancelled 56 59
Albumin Cancelled 3.2 L 3.4 L
12/04/24 12/05/24
04:54 04:04
BUN 51 H 61 H
Creatinine 2.0 H 1.8 H
Estimated Creat Clear 54 61
Albumin 2.6 L 2.4 L
12/03/24 12/03/24 12/03/24
08:20 12:25 16:09
Lactic Acid 4.1 H* 3.3 H Cancelled
12/03/24 12/03/24 12/04/24
16:23 20:37 00:00
Lactic Acid 6.5 H* 2.2 H Cancelled
12/04/24
00:07
Lactic Acid 2.0
Microbiology Results
12/03/24 08:20 Blood Culture - Preliminary
Blood/Venous Staph aureus MRSA
Gram Stain - Final
12/03/24 18:44 MRSA Screen - Final
Nose No Methicillin Resistant Staphylococcus aureus isolated.
12/03/24 08:38 Urine Culture - Preliminary
Urine Staphylococcus aureus
12/03/24 09:21 Blood Culture - Preliminary
Blood/Venous Positive culture in progress
Gram Stain - Final
Therapeutic Drug Monitoring
Random Vancomycin 12.6 ug/ml 12/05/24 04:04
[2024-12-05] MEDS: PROTONIX IV 40 MG IV (08:27)
[2024-12-05] MEDS: MIRALAX 17 GRAMS TUBE (08:28)
[2024-12-05] MEDS: NSS (PRESERVATIVE FREE) 10 ML IV (08:28)
[2024-12-05] MEDS: LOW STRENGTH ASPIRIN 81 MG TUBE (08:28)
[2024-12-05] MEDS: THIAMINE INJECTION 100 MG IV (08:28)
--- NOTE | 2024-12-05 08:40 | PTCARENOTE ---
Pulse ox observed to be in low 90's. Endotracheal suctioning provided and 100% fio2 given. Lung sounds coarse throughout. Pulse ox up to high 90's briefly then observed to slowly drop back down to 86%. Suctioning and 100% fio2 repeated. Antique Furniture Restorer
notified. PEEP increased to 8 and fio2 increased to 50%.
[2024-12-05] MEDS: VANCOCIN 275 MG IV (09:34)
[2024-12-05 09:45] LABS: Glycohemoglobin (HgbA1c) 6.4 % (4.0-5.6)
[2024-12-05] MEDS: VERSED 2 MG IV ×4 (10:12→23:26)
--- NOTE | 2024-12-05 10:14 | CON.CAR ---
Addendum entered and electronically signed by Cristobal Rivera MD 12/05/24 16:17:
I saw and examined the patient.
The Exec. Creative Director's note was reviewed and I agree with the note.
Comment: Briefly, 39-year-old man past medical history of IV drug use presenting with altered mental status and was subsequently intubated for airway protection. Multiple blood cultures are positive for MSSA and MRI of the brain concerning for
septic emboli. Cardiology is consulted to evaluate for endocarditis and arrange for transesophageal echocardiogram.
Patient remains intubated and sedated in the medical ICU
Transthoracic echocardiogram here with normal LV function and no high-grade valve disease; no obvious evidence of infectious endocarditis
We will arrange for transesophageal echo as scheduled allows -risks and benefits reviewed with patient's mother and sister at bedside
Rest per Ana Kat
Original Note:
Consultation
Consultation Request
Date/Time Consultation Performed: 12/05/24
Requesting Provider: Dr. Ross
Performing Provider: Ana Kat PA-C for Dr. Rivera
Reason for Consultation: KELI
Medical History
-
Chief Complaint: change in mental status
History of Present Illness:
Patient is a 39-year-old male with past medical history of on and off IV drug abuse since age 19 with heroin, who presented to [facility] due to change in mental status noticed by patient's parents, whom he lives with. He was noted to be tremulous and
confused, speaking gibberish. His mother reported at one point he started speaking [place]an, which he knows from playing video games with friends by their report. He was brought to the ER and was intubated for airway protection due to continued
decline in mental status. Blood cultures positive for MRSA. TTE with preserved EF and no evidence of vegetation. Cardiology consulted for eval for KELI.
PMH:
IVDA since age 19
Vaping
Past Medical History
Past Medical History: Other (in HPI)
Social History
Tobacco: Vaping
Alcohol: Occasional
Personal: Single
Living: With Family
Employment: Not Employed
Allergies / Home Medications
Allergy/AdvReac Type Severity Reaction Status Date / Time
No Known Drug Allergies Allergy Unknown Verified 12/03/24 11:44
�Medication �Instructions �Recorded �Confirmed �Type
Fiber-Caps (psyllium husk) 500 mg PO DAILY Supplement 12/03/24 12/03/24 History
Review of Systems
-
Unable to obtain full review of systems at this time due to: Patient Intubation
History Source: Family
All other systems: Negative unless noted
Physical Exam
Vital Signs
Temp Pulse Resp BP Pulse Ox
100.3 F 98 20 134/107 99
12/05/24 08:00 12/05/24 09:00 12/05/24 09:00 12/05/24 09:00 12/05/24 09:00
Lab Results
12/05/24 04:04
12/05/24 04:04
Physical Exam
General: No Apparent Distress and Comfortable
Respiratory: Clear and Non Labored Respirations
Cardiac: S1/S2, Regular Rhythm and Other (tachycardic)
GI: Soft, Non Tender, Non Distended and Normal Bowel Sounds
Musculoskeletal: No Clubbing, No Cyanosis and Edema (2+ of B/L UE and LE)
Skin: Warm, Dry and Other (multiple scars to B/L feet)
Neuro: Sedated
Impression / Plan
-
Primary Exchange Mechanic: none prior to admission
Assessment:
Presentation with change in mental status
Sepsis
Septic emboli by brain MRI
MRSA bacteremia
TME
VDRF
LE
Rhabdomyolysis
Elevated LFTs
IVDA since age 19
Vaping
ECHO 12/04/24: EF 55 to 60%, no regional wall motion abnormalities noted, no evidence of vegetation seen
Plan:
- Patient presented with change in mental status and found to be septic with MRSA bacteremia.
- brain MRI with evidence of septic emboli with small microhemorrhages
- not requiring pressors
- continue abx per ID
- echo with preserved EF, no clear vegetations 12/04
- cardiology consulted for KELI
- patient remains intubated, sedated. d/w extension agent, plan to leave patient NPO until after KELI completed
- procedure discussed with patient's mother and sister at bedside. agreeable to proceed. added to KELI scheduled 12/06
- EKG from arrival SR with sinus arrhythmia. in ST on review of tele. withdrawal protocol per ICU
- UDS positive for cocaine, fentanyl. discussed importance moving forward of illicit drug cessation/avoidance with family.
- will follow
Data Reviewed
-
EKG: Tracing Personally Visualized and interpreted
MRI: Report Reviewed by me
Medical Tests (Nuc Med, Echo etc): Report Reviewed by me
Labs: Labs Reviewed by me
Old Records: Reviewed
--- NOTE | 2024-12-05 10:50 | W.PN.ID1 ---
Date of Service
Date of Service: December 05, 2024
Today's Communication
Continue Vancomycin.
Assessment / Plan
# MRSA bacteremia
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
# Multiple embolic CVA
# New Seizure
# Fever
# Leukocytosis/bandemia
# Intubated 12/03
# LE
# Polysubstance abuse (cocaine and fentanyl skin/muscle popper)
# Drug withdrawal
# hx MRSA wound abscesses (2010)
# hx of Viridans strep bacteremia (2010)
- TTE no vege
- Recommend KELI, when able
- Repeat blood cultures
- Continue with Vancomycin
- Monitor closely.
- Trend wbc, temps.
- Prognosis remains guarded
Chief Complaint
-: Clinical Sepsis
Subjective / Review of Systems
Had seizure last night.
Vital Signs / Physical Exam
Vital Signs
Vital Signs
Temp Pulse Resp BP Pulse Ox
100.3 F 98 20 134/107 99
12/05/24 08:00 12/05/24 09:00 12/05/24 09:00 12/05/24 09:00 12/05/24 09:00
Physical Exam
Constitutional: Acutely Ill
Eyes: Sclera Anicteric
Cardiovascular: Regular Rate and S1/S2
Pulmonary: Clear
Gastrointestinal: Soft, Non Tender and Non Distended
Extremities: Negative Edema
Objective Data
Lab Data
Lab Results
12/05/24 04:04
12/05/24 04:04
Estimated Creat Clear 61 ml/min 12/05/24 04:04
Lactic Acid 2.0 mmol/L (0.7-2.0) 12/04/24 00:07
Total Bilirubin 1.7 mg/dl (0.2-1.3) H 12/05/24 04:04
AST 138 U/L (17-59) H 12/05/24 04:04
ALT 90 U/L (0-50) H 12/05/24 04:04
Alkaline Phosphatase 114 U/L (38-126) 12/05/24 04:04
Amylase 139 U/L (30-110) H 12/05/24 04:04
Most recent labs reviewed.
Micro Results:
12/03/24 08:20 Blood Culture - Preliminary
Blood/Venous Staph aureus MRSA
Gram Stain - Final
12/03/24 18:44 MRSA Screen - Final
Nose No Methicillin Resistant Staphylococcus aureus isolated.
12/03/24 08:38 Urine Culture - Preliminary
Urine Staphylococcus aureus
12/03/24 09:21 Blood Culture - Preliminary
Blood/Venous Positive culture in progress
Gram Stain - Final
12/04/24 MRI brain: Numerous scattered acute infarctions in a distribution that is most suggestive of embolic phenomenon in the setting of known IV drug abuse. Multiple small microhemorrhages are also demonstrated.
12/03/24 CXR: Clear lungs.
12/03/[address]: Possible cortical petechial hemorrhages in the left frontal lobe and left occipital lobe. Possible small old infarct, periventricular small vessel ischemic disease or edema due to underlying mass in the left occipital lobe.
Care Review
Plan reviewed with: Physician (Dr. Ross)
[2024-12-05] MEDS: LR IV (11:17)
[2024-12-05] MEDS: D5W 1000 IV (11:28)
[2024-12-05] MEDS: LASIX 20 MG IV (11:39)
[2024-12-05] MEDS: SUBLIMAZE 100 MCG IV (12:12)
--- NOTE | 2024-12-05 12:17 | PTCARENOTE ---
Around 1130, breathing observed to be irregular. Respiratory rate in the 30's. Pulse ox dropping to 87-88%. RT at bedside. Moderate amount of clear secretions suctioned from ett. Pulse ox continuing to drop. Breathing rapid and shallow. Lung sounds
diminished throughout. FiO2 increased to 70%. Lodging Manager at bedside to assess. Per Lodging Manager, increase sedation. Propofol gtt increased. Patient becoming more tremulous throughout body. RR up to 47. HR in the 120's. 2mg IV Versed ordered and
administered without any improvement. 100 mcg fentanyl bolus ordered and administered. Fentanyl and Propofol drips titrated up. Versed drip ordered. STAT eeg ordered. Per Lodging Manager, once patient stabilized, repeat ABG.
--- NOTE | 2024-12-05 12:21 | W.PN.INTV ---
Addendum entered and electronically signed by Todd Lao MD 12/05/24 16:28:
Patient evaluated multiple times throughout the day due to episodic ventilator dyssynchrony and need for additional as needed bolus medications.
- Met with patient's sister and mother at bedside, went over patient's current critical condition
- Patient reevaluated after having been started on Versed infusion, more sedated, more ventilator synchrony with better saturations
Additional 30 minutes of critical care time was spent.
Original Note:
Today's Communication / Plan
Recommendations
- Versed push followed by start infusion for deep sedation
- EEG for suspected seizure-like activity
- CT abdomen pelvis for concern of acute pancreatitis with rising lipase. Mild acute pancreatitis noted
- Repeat blood cultures
- Follow-up lactic acid, ABG later today, monitor electrolytes
- Trend triglyceride levels
- DC Ringer lactate, give Lasix 20 mg IV x 1, start D5W for hypernatremia
- Hold off tube feeding for now
- Cardiology consultation for consideration for KELI
Assessment
-
39-year-old male with history of polysubstance abuse, presents with 4 days of fevers, progressive 2 days of tremors, nausea/emesis on day of admission found to have confusion, suspected sepsis, multiple brain lesions, transaminitis, rhabdomyolysis.
Patient treated with IV antibiotics, IV fluids, withdrawal protocol with Dilaudid, buprenorphine in the ED. Also found to have prolonged QT. Admitted to ICU for further management. Required intubation and mechanical ventilation starting 12/03.
Conditions present prior to admission
History of MRSA bacteremia 2010
Right forearm abscess
Right mandibular fracture 2010
Status post closed reduction
12/05 overview: Patient currently mechanically ventilated, volume AC 500/20/40%/5. Blood gas 7.49, 33, 74. Patient currently on propofol and fentanyl infusion. Ringer lactate infusing at 150 an hour. Saturating 98% on 40% FiO2. MAP of 119.
Intermittent episodes of tremulousness, seizure-like activity, tachypnea and ventilator asynchrony.
Assessment and plan
#1. Polysubstance drug use with severe sepsis, MRSA bacteremia
- Suspect embolic intracranial cortical petechial hemorrhages
- Lactic acid as high as 6.5, serial lactate down to 2.0, s/p IV hydration, intubation and mechanical ventilation
- Broad-spectrum antibiotic including IV vancomycin, ID service on case, follow-up on cultures
- Preliminary Staph aureus, MRSA in all cultures, repeat cultures today
- Concern for infective endocarditis, 2D echocardiogram negative. Cardiology consultation requested for KELI
#2. Acute toxic metabolic encephalopathy, ?seizures
- Related to severe sepsis, lactic acidosis, MRSA bacteremia as well as intracranial petechial hemorrhages
-Petechial hemorrhages confirmed on MRI. Aspirin 81 mg started per neurology service
- Patient required intubation on 12/03 due to worsening encephalopathy
- Neurology on case
- Episodes of tremulousness with ventilator asynchrony, tachypnea and desaturation. Concerning for seizure. Portable EEG on 12/04 was not suggestive of epileptiform discharges. Plan for EEG today, discussed with neurology service.
- Intermittent extreme ventilator asynchrony with desaturation. Needs deep sedation. Start Versed bolus and then infusion, continue to titrate fentanyl and propofol as needed.
#3. Lactic acidosis
- Due to MRSA bacteremia and severe sepsis
- Improving with IV hydration and intubation with mechanical ventilation
- Follow-up ABG and lactate later today
#4. Acute renal insufficiency, hypernatremia, hypokalemia
- Nonoliguric, urine output 1.3 L over last 24 hours
- Developing anasarca, stop IV fluids, start D5W infusion due to hypernatremia, Lasix 20 mg IV x 1
- Potassium replaced, magnesium normal, follow-up labs later in today
#5. Acute transaminitis and Acute rhabdomyolysis
- In the setting of severe sepsis, polysubstance drug use
- IV fluids stopped as patient developing anasarca, Lasix 20 mg IV x 1
#6. Polysubstance abuse
- Continue clonidine as ordered, buprenorphine protocol when able to take p.o.
- Continue empiric thiamine replacement
- Continue fentanyl infusion, add Versed drip in view of difficult to control intermittent ventilator asynchrony, suspect withdrawal symptoms
#7. QT prolongation
- Suspect in the setting of electrolyte imbalance
- Follow-up EKG shows improving QTc
- Continue to replace potassium as needed
- Follow-up K, mag and phosphorus levels closely
#8. Vomiting, suspect pancreatitis
- Elevated lipase noted, continue NG to low intermittent suction
- CT abdomen pelvis without contrast ordered, suggestive of developing pancreatitis, likely in the setting of MRSA bacteremia/
DVT prophylaxis, start subcu heparin. GI prophylaxis with IV PPI.
Critical Care time 62 mins -- The patient is admitted for acute critical illness for the treatment of vital organ failure and/or prevention of further life-threatening conditions. Total care includes time spent in review of history, physical exam,
medications, hemodynamic/ventilator parameters, laboratory data, imaging and discussion with house staff, pharmacy, respiratory therapy, cad designer, and nursing.
Subjective Dataa
Subjective Data
Date of Service:
Date of Service: December 05, 2024
Subjective:
Patient currently intubated, mechanically ventilated and sedated. Intermittent episodes of ventilator dyssynchrony, tachypnea and seizure-like activity.
Review of Systems
General: Unobtainable - Sedation
Objective Data
Data Reviewed
Vital Signs / I&O / Oxygen:
Vital Signs
Temp Pulse Resp BP Pulse Ox
100.3 F 108 20 134/94 98
12/05/24 08:00 12/05/24 11:38 12/05/24 11:00 12/05/24 11:39 12/05/24 12:00
Intake and Output
12/04/24 12/05/24 12/06/24
06:59 06:59 06:59
Intake Total 4159.2 / 4393.2 4549.9 / 4726.4 804.5 / 804.5
Output Total 3826 / 3856 1544 / 1574 130 / 130
Balance 333.2 / 537.2 3005.9 / 3152.4 674.5 / 674.5
SaO2 [A/C] 98
SaO2 96
Physical Exam
General: Other (Intermittent episodes of vent dyssynchrony, seizure-like activity and tachypnea)
HEENT: Normocephalic
Cardiovascular: S1-S2
Respiratory: Clear and Non-Labored Respirations
GI: Soft and Distended
Neurology: Other (Sedated)
Skin: Warm
Labs/Micro/Reports
Laboratory Results
12/05/24
03:50
pH 7.49 H
pCO2 33 L
pO2 74 L
HCO3 25.1
O2 Delivery Level
Microbiology
12/03/24 08:38 Urine Urine Culture - Final
S aureus-Methicillin Sensitive
12/03/24 09:21 Blood/Venous Blood Culture - Preliminary
S aureus-Methicillin Sensitive
12/03/24 09:21 Blood/Venous Gram Stain - Final
12/03/24 08:20 Blood/Venous Blood Culture - Preliminary
S aureus-Methicillin Sensitive
12/03/24 08:20 Blood/Venous Gram Stain - Final
12/03/24 18:44 Nose MRSA Screen - Final
No Methicillin Resistant Staphylococcus aureus isolated.
--- NOTE | 2024-12-05 14:18 | PTCARENOTE ---
EEG in progress.
--- NOTE | 2024-12-05 15:00 | EEG.RPT ---
Electroencephalogram Report
Recording
Date of EE12/05/24
Type of EEG: Routine
Length of EEG recordin minutes
Done with Video Recording: Yes
Patient Status: Inpatient
Recording Conditions: Awake and Drowsy
Hyperventilation Performed: No
Photic Stimulation Performed: Yes
Report
GREATER THAN 1 HOUR EEG INTERPRETATION:
Unremarkable EEG for age
CLINICAL CORRELATION:
A normal EEG does not rule out a diagnosis of epilepsy. If clinical suspicion for seizure persists, a prolonged recording may be warranted.
Clinical correlation is advised.
METHODS:
A 21 channel digitized electroencephalogram (EEG) was performed using the 10/20 international system of electrode placement and one-lead of ECG recorded. The [address] quantitative EEG system was utilized.
ELECTROENCEPHALOGRAPHER IMPRESSION(S):
Quality of study
Good
Background
There was a fair anterior-posterior voltage gradient of alpha frequency.
With eye opening the background activity changed to a low voltage mixture of frequencies.
There were no significant asymmetries of background activity noted.
Sleep
Drowsiness present
Hyperventilation
No activation
Photic Stimulation
No activation
ECG
Normal sinus rhythm
--- NOTE | 2024-12-05 15:31 | W.PN.HOSP.TC ---
Today's Communication/Plan
-
Assessment / Plan
Assessment / Plan
General: Acutely ill-appearing, intubated and sedated
HEENT: NormoCephalic, ETT in NGT in place, pupils equal
Respiratory: Mechanical breath sounds bilaterally
Cardiac: S1/S2 and Regular Rhythm; No Rub or Gallop
GI: Soft, Non Tender, Non Distended and Normal Bowel Sounds
Musculoskeletal: Bilateral upper extremity edema, no deformity
Skin: Warm and dry, multiple scattered annular scars on bilateral legs and feet
: Balderas in place draining clear yellow urine
Neuro: Sedated, no tremor
Psych: Unable to assess
Mr. Alonzo is a 39-year-old male with a medical history of polysubstance abuse (skin popping with fentanyl) who was admitted after presentation with altered mental status. He was brought in by his parents with tremors and confusion. His mental
status abruptly declined and he was intubated for airway protection. CT brain showed possible left occipital lobe mass. His blood cultures are positive for MRSA. He is currently being managed in the ICU for treatment of encephalopathy and
bacteremia.
Severe sepsis secondary to MRSA bacteremia:
- Suspect related to injection drug use
- Continue antibiotics with vancomycin, ID following
- Transthoracic echocardiogram shows no evidence of vegetations, planning KELI tomorrow 12/06, holding tube feeds
- Repeat cultures until sterile
Acute toxic metabolic encephalopathy:
- Episode of convulsive activity yesterday afternoon, now sedated with propofol and fentanyl, Ceribel detected no evidence of epileptiform activity
- Encephalopathy likely multifactorial due to bacteremia, opiate withdrawal, and and suspected septic emboli to brain
- MRI brain consistent with suspicion for septic emboli
- Currently mechanically ventilated for airway protection, vent management per mexican food cook
- Neurology following, will check EEG
LE:
- Creatinine 1.8
- Baseline appears to be less than 1
- Suspect related to rhabdomyolysis which is improving
- Currently holding LR as patient appears to be becoming volume overloaded, IV dose of Lasix given x 1, switch fluids to D5W for hypernatremia
Hypokalemia:
- 3.2, repleted
- Monitor
Rhabdomyolysis:
- Continue aggressive IV fluids
Elevated LFTs:
- Suspect due to severe sepsis
- Stable, monitor with treatment as above
Pancreatitis:
- Elevated lipase, CT imaging with evidence of pancreatic inflammation
- Triglycerides elevated 479, currently sedated with propofol, trend triglyceride levels
- Holding tube feeds
Lactic acidosis:
- Resolved, continue to monitor
Polysubstance abuse:
- Long history of injection drug abuse
- Continue scheduled clonidine and tizanidine, started Versed drip for withdrawal symptoms as evidenced by ventilator synchrony
- Can initiate buprenorphine treatment when tolerating p.o.
DVT prophylaxis: SCDs
CODE STATUS: Full code
Total time spent on today's encounter was 45 minutes
Anticipated Discharge: > 48 hours
Subjective/Interval History
-
Date of Service: December 05, 2024
Patient was seen and examined at bedside this morning. He had convulsive episodes yesterday afternoon. No epileptiform activity was detected on Ceribell. He is now on a propofol and fentanyl drip. MRI brain yesterday raises suspicion of septic
emboli. Transthoracic echo shows no evidence of vegetations. Will plan KELI during this admission.
Objective Data
-
Labs:
Laboratory Results
12/05/24 12/05/24 12/05/24
03:50 04:04 16:00
WBC 23.4 H Pending
Hgb 11.8 L Pending
Hct 32.4 L Pending
Plt Count 121 L Pending
HCO3 25.1 Pending
Sodium 148 H Pending
Potassium 3.2 L Pending
Chloride 115 H Pending
Carbon Dioxide 28 Pending
BUN 61 H Pending
Creatinine 1.8 H Pending
Glucose 135 H Pending
Calcium 7.9 L Pending
Total Bilirubin 1.7 H Pending
AST 138 H Pending
ALT 90 H Pending
Alkaline Phosphatase 114 Pending
Vital Signs:
Vital Signs
Temp Pulse Resp BP Pulse Ox
100.0 F 115 20 134/108 99
12/05/24 15:22 12/05/24 15:00 12/05/24 15:00 12/05/24 15:00 12/05/24 15:24
I&O
12/04/24 12/05/24 12/06/24
06:59 06:59 06:59
Intake Total 4159.2 / 4393.2 4549.9 / 4726.4 1248.9 / 1248.9
Output Total 3826 / 3856 1544 / 1574 1150 / 1150
Balance 333.2 / 537.2 3005.9 / 3152.4 98.9 / 98.9
Review of Systems
-
Unable to obtain full review of systems at this time due to: Patient Intubation
Physical Exam
-
General: Intubated
--- NOTE | 2024-12-05 15:47 | CM ---
Intubated, IV/meds. Discharge POC: TBD with medical progression.
[2024-12-05] MEDS: VERSED 50 IV (15:49)
--- NOTE | 2024-12-05 16:05 | CHAP ---
Met with Ottoniel's family in [facility]. They asked me to return with a prayer blanket for him after staff finishes a procedure. Will follow.
--- NOTE | 2024-12-05 16:50 | PTCARENOTE ---
Systems reviewed. No major changes. Sedation ordered for deep sedation. Versed drip initiated. ST on tele, rate in the 120's. FiO2 weaned to 50%. Pulse ox 98-99%. Lung sounds diminished throughout. Right radial dayo placed by Dental Laboratory Technician Apprentice. Repeat
labs sent.
[2024-12-05 17:00] LABS: B.E. 1.4 mmol/L; HCO3 24.7 mmol/L (21-28); O2 Saturation % 99.7 % (94-98); PCO2 34 mmHg (35-48); PO2 164 mmHg (83-108)
[2024-12-05 17:04] LABS: Hematocrit 32.7 % (39.0-52.0); Hemoglobin 11.8 g/dL (13.0-18.0); Mean Corp Hgb Conc. 36.1 g/dL (33.0-37.0); Mean Corpuscular Volume 82.4 fL (80.0-94.0); Platelet Count 130 10^3/uL (130-400); Red Cell Dist. Width 13.2 % (11.5-14.5)
[2024-12-05 17:20] LABS: Nucleated Red Blood Cells % 0.1 % (-)
[2024-12-05 17:22] LABS: ALT (SGPT) 78 U/L (0-50); AST (SGOT) 86 U/L (17-59); Albumin 2.5 g/dl (3.5-5.0); Alkaline Phosphatase 108 U/L (38-126); Blood Urea Nitrogen 60 mg/dl (9-20); Calcium 7.9 mg/dl (8.4-10.2); Carbon Dioxide 25 mmol/L (22-30); Chloride 116 mmol/L (98-107); Estimated Creatinine Clearance 71 ml/min; Glucose 146 mg/dl (70-99); Potassium 3.4 mmol/L (3.5-5.1); Sodium 147 mmol/L (135-145); Total Protein 5.3 g/dl (6.3-8.2); eGFR 56.56
[2024-12-05 17:23] LABS: Hypochromasia 1+; Normal RBC Morphology No; Target Cells 2+
[2024-12-05 18:26] LABS: Triglycerides 664 mg/dl (10-149)
--- NOTE | 2024-12-05 19:05 | OR.RPT ---
Operative Report
Operative Report
Right Radial Arterial Line placement
Indication: Need for ABGs, lab work, inability to obtain blood draws from veins.
Consent: Verbal consent obtained from Patient's mother and sister at bedside
US was used to assess radial artery. Area was cleaned with Chlorhexidine and sterile gloves were used to perform the procedure. A drape was placed and under real time US guidance, Right radial artery was accessed. Once blood was aspirated, guide
wire was advanced, and catheter was advanced over the guidewire. Needle and guidewire were then removed and catheter attached to tubing. Dressing was placed after bio-patch was placed at the access site.
Complication: None
Blood loss: < 1 ml
Date of service: 12/05/2024
--- NOTE | 2024-12-05 20:00 | PTCARENOTE ---
on assessment pt intubated and sedated, rass -4, febrile 101 core, HR 120-130 Manager Account Management aware and at bedside, PRN tylenol given see JUL, +2 gen edema, AC 20/500/50%/8, 98%, NGT to LIS, zambrano in place, rash on sacrum, R midline, R Villalba, and LUE PICC,
[2024-12-05] MEDS: CATAPRES TUBE (23:27)
--- NOTE | 2024-12-05 23:43 | PTCARENOTE ---
PROP d/c per MD order, increased versed per order and weaning down prop due to increased triglycerides
[2024-12-06] VITALS (38 sets, daily range): BP systolic 96–147; BP diastolic 68–104; BMI 23.4
[2024-12-06] MEDS: TYLENOL ORAL SOLUTION 650 MG TUBE ×4 (00:12→17:28)
[2024-12-06] MEDS: SUBLIMAZE 50 MCG IV (00:49)
[2024-12-06] MEDS: VERSED 2 MG IV ×3 (02:03→23:12)
[2024-12-06] MEDS: SUBLIMAZE 100 IV ×4 (02:56→20:10)
[2024-12-06] MEDS: VERSED 50 IV ×3 (02:57→16:01)
[2024-12-06 03:51] LABS: B.E. 1.9 mmol/L; HCO3 25.6 mmol/L (21-28); O2 Saturation % 99.5 % (94-98); PCO2 36 mmHg (35-48); PO2 185 mmHg (83-108)
[2024-12-06 04:00] LABS: Hematocrit 32.4 % (39.0-52.0); Hemoglobin 11.4 g/dL (13.0-18.0); Mean Corp Hgb Conc. 35.2 g/dL (33.0-37.0); Mean Corpuscular Volume 83.5 fL (80.0-94.0); Platelet Count 121 10^3/uL (130-400); Red Cell Dist. Width 13.2 % (11.5-14.5)
[2024-12-06 04:02] LABS: D-Dimer 1.85 ug/mlFEU (0.00-0.50)
[2024-12-06 04:15] LABS: Magnesium 2.2 mg/dl (1.6-2.3)
[2024-12-06 04:29] LABS: Triglycerides 650 mg/dl (10-149)
[2024-12-06 04:43] LABS: Absolute Neutrophils -Man Diff 14.1 10^3/uL (1.4-6.5); Normal RBC Morphology Yes; Platelets Checked Yes; Total Cells Counted 100
[2024-12-06 04:49] LABS: Blood Urea Nitrogen 60 mg/dl (9-20); Calcium 7.7 mg/dl (8.4-10.2); Carbon Dioxide 25 mmol/L (22-30); Chloride 117 mmol/L (98-107); Estimated Creatinine Clearance 76 ml/min; Glucose 143 mg/dl (70-99); Potassium 3.9 mmol/L (3.5-5.1); Sodium 147 mmol/L (135-145); eGFR > 60.00
[2024-12-06] MEDS: CATAPRES 0.2 MG TUBE ×4 (05:12→23:12)
[2024-12-06] MEDS: ZANAFLEX 2 MG TUBE ×4 (05:13→23:12)
[2024-12-06] MEDS: D5W 1000 IV ×2 (05:14→23:12)
--- NOTE | 2024-12-06 05:31 | PTCARENOTE ---
diminished urine output noted last three hours ONLINE MEDIA DIRECTOR made aware
[2024-12-06] MEDS: MIRALAX 17 GRAMS TUBE (08:25)
[2024-12-06] MEDS: LOW STRENGTH ASPIRIN 81 MG TUBE (08:26)
[2024-12-06] MEDS: THIAMINE INJECTION 100 MG IV (08:26)
[2024-12-06] MEDS: PROTONIX IV 40 MG IV (08:27)
[2024-12-06] MEDS: NSS (PRESERVATIVE FREE) 10 ML IV (08:27)
--- NOTE | 2024-12-06 08:44 | PTCARENOTE ---
Pt rec'd from night RN 07:15 intubated and sedated, rass -4, febrile 101.2 core, HR 120-130,PRN tylenol given see JUL, +2 gen edema, AC 20/500/50%/8, lowered per Quick Sketch Artist to 20/500/5/40%, 98%, NGT to JACK, zambrano in place, R midline, R Dewart, and
LUE PICC, meds given, pt handed off to QUIN Mario at this time.
--- NOTE | 2024-12-06 09:02 | W.PN.CARDCBS ---
Today's Communication / Plan
-
Remains with fevers and MSSA bacteremia.
Transthoracic echo overall unremarkable plan for KELI today while intubated.
Would give Lasix 20 mg IV today and continue to follow sodium and creatinine.
Sodium stable at 147, creatinine slightly improved at 1.5. Weight overall up 10 pounds.
Continue broad-spectrum antibiotics
Check repeat lipase with low-level pancreatitis.
Remains critically ill, but blood pressure overall stable off pressors
Impression / Plan
-
Primary Tool Marker: none prior to admission
Assessment:
Presentation with change in mental status
Sepsis
Septic emboli by brain MRI
MSSA bacteremia
Pancreatitis
TME
VDRF
LE
Rhabdomyolysis
Elevated LFTs
Thrombocytopenia
IVDA since age 19
Vaping
ECHO 12/04/24: EF 55 to 60%, no regional wall motion abnormalities noted, no evidence of vegetation seen
Plan:
- Patient presented with change in mental status and found to be septic with MRSA bacteremia.
- brain MRI with evidence of septic emboli with small microhemorrhages
- not requiring pressors
- continue abx per ID
- echo with preserved EF, no clear vegetations 12/04
- cardiology consulted for KELI. Plan will be for likely KELI today while intubated to better assess valves, but patient with high clinical suspicion for endocarditis.
- Weight is up 10 pounds with aggressive IV fluids. Would give Lasix 20 mg IV today. Hyponatremia stable at 147. Creatinine at 1.5.
-Continue to avoid meds which will increase triglycerides as patient also has low-level pancreatitis. Check repeat lipase
- UDS positive for cocaine, fentanyl. discussed importance moving forward of illicit drug cessation/avoidance with family.
-Platelet count overall stable at 120,000
- will follow
-discussed with nursing.
CC time 32 min
Progress Note - Tool Marker
Subjective
Date of Service: December 06, 2024
Still having fevers, remains intubated and sedated.
Objective
Labs:
12/06/24 03:38
12/06/24 06:00
Labs
Hgb 11.4 g/dL (13.0-18.0) L 12/06/24 03:38
Hct 32.4 % (39.0-52.0) L 12/06/24 03:38
Plt Count 121 10^3/uL (130-400) L 12/06/24 03:38
Sodium Cancelled 12/06/24 06:00
Potassium Cancelled 12/06/24 06:00
BUN Cancelled 12/06/24 06:00
Creatinine Cancelled 12/06/24 06:00
Glucose Cancelled 12/06/24 06:00
Vital Signs and I&O:
Vital Signs
Temp Pulse Resp BP Pulse Ox
101.2 F H 128 20 136/89 98
12/06/24 08:37 12/06/24 07:45 12/06/24 07:45 12/06/24 07:00 12/06/24 08:00
Vital Signs
Temp Pulse Resp BP Pulse Ox
101.2 F H 128 20 136/89 98
12/06/24 08:37 12/06/24 07:45 12/06/24 07:45 12/06/24 07:00 12/06/24 08:00
Intake & Output
12/04/24 12/05/24 12/06/24 12/07/24
06:59 06:59 06:59 06:59
Intake Total 4159.2 / 4393.2 4549.9 / 4726.4 3515.1 / 3591.1 392 / 392
Output Total 3826 / 3856 1544 / 1574 2150 / 2165 365 / 365
Balance 333.2 / 537.2 3005.9 / 3152.4 1365.1 / 1426.1
Physical Exam
Physical Exam
GEN: No distress, intubated/sedated
HEENT: supple, anicteric, mmm, ET tube
LUNGS: CTA, no wheezes/rales
CV: Reg, S1/S2, / syst LSB, no gallop
ABD: soft, BS+, NT/ND
EXT: No edema
NEURO: Gross non-focal
SKIN: No rash
--- NOTE | 2024-12-06 09:10 | W.PN.ID1 ---
Date of Service
Date of Service: December 06, 2024
Today's Communication
Replace Vancomycin with nafcillin.
Assessment / Plan
# MSSA (corrected from MRSA) bacteremia
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
# Multiple embolic CVA
# New Seizure
# Fever persists
# Leukocytosis/bandemia
# Intubated 12/03
# LE improving
# Polysubstance abuse (cocaine and fentanyl skin/muscle popper)
# hx MRSA wound abscesses (2010)
# hx of Viridans strep bacteremia (2010)
- TTE no vege
- Recommend KELI, when able. Appreciate cardiology.
- Repeat blood cultures until clear
- Discontinue Vancomycin
- Start Nafcillin 2g IV q4h.
Monitor renal function and LFT's while on nafcillin.
- Trend wbc, temps.
- Prognosis remains guarded
Chief Complaint
-: Clinical Sepsis, Bacteremia and Other (embolic CVA)
Subjective / Review of Systems
Remains on vent.
Vital Signs / Physical Exam
Vital Signs
Vital Signs
Temp Pulse Resp BP Pulse Ox
101.2 F H 127 21 127/82 91
12/06/24 08:37 12/06/24 09:00 12/06/24 09:00 12/06/24 09:00 12/06/24 09:00
Physical Exam
Constitutional: Acutely Ill
Cardiovascular: S1/S2 and Other (tachycardic)
Pulmonary: Clear
Gastrointestinal: Soft and Non Tender
Genito-Urinary: Balderas and Clear Urine
Extremities: Edema
Neurological: Other (sedated)
Objective Data
Lab Data
Lab Results
12/06/24 03:38
12/06/24 06:00
Estimated Creat Clear Cancelled 12/06/24 06:00
Lactic Acid 1.3 mmol/L (0.7-2.0) 12/05/24 16:46
Total Bilirubin 1.8 mg/dl (0.2-1.3) H 12/05/24 16:46
AST 86 U/L (17-59) H 12/05/24 16:46
ALT 78 U/L (0-50) H 12/05/24 16:46
Alkaline Phosphatase 108 U/L (38-126) 12/05/24 16:46
Amylase 139 U/L (30-110) H 12/05/24 04:04
Most recent labs reviewed.
Micro Results:
12/05/24 16:46 Blood Culture - Pending
Blood/Venous
12/05/24 13:38 Blood Culture - Pending
Blood/Venous
12/03/24 08:38 Urine Culture - Final
Urine S aureus-Methicillin Sensitive
12/03/24 09:21 Blood Culture - Preliminary
Blood/Venous S aureus-Methicillin Sensitive
Gram Stain - Final
12/03/24 08:20 Blood Culture - Preliminary
Blood/Venous S aureus-Methicillin Sensitive
Gram Stain - Final
12/03/24 18:44 MRSA Screen - Final
Nose No Methicillin Resistant Staphylococcus aureus isolated.
12/05/24 CT a/p: Mild inflammatory change adjacent to the body and tail of the pancreas, suggestive of mild pancreatitis. No peripancreatic fluid collection appreciated. No evidence of intestinal obstruction or bowel inflammatory process. Study is
slightly limited by lack of intravenous or oral contrast. Gallbladder sludge without evidence of acute cholecystitis. No radiopaque gallstones are seen.
12/04/24 MRI brain: Numerous scattered acute infarctions in a distribution that is most suggestive of embolic phenomenon in the setting of known IV drug abuse. Multiple small microhemorrhages are also demonstrated.
12/03/24 CXR: Clear lungs.
12/03/[address]: Possible cortical petechial hemorrhages in the left frontal lobe and left occipital lobe. Possible small old infarct, periventricular small vessel ischemic disease or edema due to underlying mass in the left occipital lobe.
[2024-12-06] MEDS: LASIX 40 MG IV (10:51)
--- NOTE | 2024-12-06 11:44 | W.PN.INTV ---
Today's Communication / Plan
Recommendations
- Lasix 40 mg IV x 1
- Clamp NG trial, will monitor gastric residue to see if safe to start trickle tube feeding
- Await KELI
- Follow-up blood cultures pending
Assessment
-
39-year-old male with history of polysubstance abuse, presents with 4 days of fevers, progressive 2 days of tremors, nausea/emesis on day of admission found to have confusion, suspected sepsis, multiple brain lesions, transaminitis, rhabdomyolysis.
Patient treated with IV antibiotics, IV fluids, withdrawal protocol with Dilaudid, buprenorphine in the ED. Also found to have prolonged QT. Admitted to ICU for further management. Required intubation and mechanical ventilation starting 12/03.
Conditions present prior to admission
History of MRSA bacteremia 2010
Right forearm abscess
Right mandibular fracture 2010
Status post closed reduction
12/06 overview: Patient currently mechanically ventilated, volume assist-control 500/20/50%/8, ABG this morning 7.40 6/36/185. Not needing any pressors, current MAP of 94. Patient continues to have fever. Current infusions Versed and fentanyl.
Assessment and plan
#1. Polysubstance drug use with severe sepsis, MSSA bacteremia
- Suspect embolic intracranial cortical petechial hemorrhages
- Lactic acid as high as 6.5, serial lactate down to 2.0, s/p IV hydration, intubation and mechanical ventilation
- ID service on case, currently on IV nafcillin
- Concern for infective endocarditis, 2D echocardiogram negative. Cardiology consultation requested for KELI
#2. Acute toxic metabolic encephalopathy, ?seizures
- Related to severe sepsis, lactic acidosis, MRSA bacteremia as well as intracranial petechial hemorrhages
- Petechial hemorrhages confirmed on MRI. Aspirin 81 mg started per neurology service
- Patient required intubation on 12/03 due to worsening encephalopathy
- Neurology on case
- Episodes of tremulousness with ventilator asynchrony, tachypnea and desaturation. Concerning for seizure, however both cerebellar and subsequent EEG negative. Neurology on case. Presentation more likely related to withdrawal.
#3. Lactic acidosis
- Due to MSSA bacteremia and severe sepsis
- Improving with IV hydration and intubation with mechanical ventilation
#4. Acute renal insufficiency, hypernatremia, hypokalemia
- Nonoliguric, creatinine stable to improving.
- Continue to stay off IV fluids, give another Lasix 40 mg x 1 today.
- Continue D5W for hypernatremia, gradually improving
#5. Acute transaminitis and Acute rhabdomyolysis
- In the setting of severe sepsis, polysubstance drug use
- IV fluids stopped as patient developing anasarca, 40 mg x 1
#6. Polysubstance abuse
- Continue clonidine as ordered, buprenorphine protocol when able to take p.o.
- Continue empiric thiamine replacement
- Continue fentanyl infusion, added Versed drip in view of difficult to control intermittent ventilator asynchrony, suspect withdrawal symptoms
#7. QT prolongation
- Suspect in the setting of electrolyte imbalance
- Follow-up EKG shows improving QTc
- Continue to replace potassium as needed
- Follow-up K, mag and phosphorus levels closely
#8. Vomiting, Acute pancreatitis
- Elevated lipase noted
- NG tube clamp trial, if no significant residue, will start postpyloric trickle feeding
#9.Elevated Triglycerides
- Propofol infusion discontinued on 12/05, monitor for now
DVT prophylaxis, Continue subcu heparin. GI prophylaxis with IV PPI.
Updated patient's family at bedside.
Critical Care time 52 mins -- The patient is admitted for acute critical illness for the treatment of vital organ failure and/or prevention of further life-threatening conditions. Total care includes time spent in review of history, physical exam,
medications, hemodynamic/ventilator parameters, laboratory data, imaging and discussion with house staff, pharmacy, respiratory therapy, felling bucking supervisor, and nursing.
Subjective Dataa
Subjective Data
Date of Service:
Date of Service: December 06, 2024
Subjective:
Patient currently intubated, mechanically ventilated and sedated
Review of Systems
General: Unobtainable - Sedation
Objective Data
Data Reviewed
Vital Signs / I&O / Oxygen:
Vital Signs
Temp Pulse Resp BP Pulse Ox
100.5 F H 118 22 115/77 96
12/06/24 11:25 12/06/24 11:15 12/06/24 11:15 12/06/24 11:00 12/06/24 11:15
Intake and Output
12/05/24 12/06/24 12/07/24
06:59 06:59 06:59
Intake Total 4549.9 / 4726.4 3515.1 / 3591.1 620 / 620
Output Total 1544 / 1574 2150 / 2165 465 / 465
Balance 3005.9 / 3152.4 1365.1 / 1426.1 155 / 155
SaO2 [A/C] 98
SaO2 96
Physical Exam
General: Other (Appears more synchronous with vent)
HEENT: Normocephalic
Cardiovascular: S1-S2
Respiratory: Clear and Non-Labored Respirations
GI: Soft and Distended
Neurology: Other (Sedated)
Skin: Warm
Labs/Micro/Reports
Lab Data
12/06/24 03:38
12/06/24 06:00
Laboratory Results
12/05/24 12/06/24
16:46 03:38
pH 7.47 H 7.46 H
pCO2 34 L 36
pO2 164 H 185 H
HCO3 24.7 25.6
O2 Delivery Level Not Reportable
Microbiology
12/03/24 09:21 Blood/Venous Blood Culture - Final
S aureus-Methicillin Sensitive
12/03/24 09:21 Blood/Venous Gram Stain - Final
12/03/24 08:20 Blood/Venous Blood Culture - Final
S aureus-Methicillin Sensitive
12/03/24 08:20 Blood/Venous Gram Stain - Final
12/03/24 08:38 Urine Urine Culture - Final
S aureus-Methicillin Sensitive
12/03/24 18:44 Nose MRSA Screen - Final
No Methicillin Resistant Staphylococcus aureus isolated.
[2024-12-06] MEDS: NAFCIL 108 MG IV ×4 (12:12→23:17)
--- NOTE | 2024-12-06 13:16 | PTCARENOTE ---
Updated assessment and vital signs ongoing and as documented. Continue follow up trends and plan of cares. Update in am rounds. Family updated in am rounds with critical care team at bedside. Follow up labs and medications as ordered. Continue
follow up with pharmacy and respiratory cares team. Family in and out at bedside. Continue supportive cares, teaching and emotional support.
--- NOTE | 2024-12-06 13:32 | PHA.VAN.FU ---
Addendum entered and electronically signed by Yumiko Hirsch [facility] 12/06/24 13:44:
ke = 0.0412
half-life = 16.8 H in between level 21.9 & 14
Original Note:
Vancomycin Assessment / Plan
- Assessment
Renal Function: Stable
WBC's are: Trending Down
In the past 24 hrs, patient has been: Febrile
- Assessment - Therapeutic Drug Monitoring
Random Level: 14 - drawn ~10.9H after previous level 21.9
- Dosing Plan
Dosing by Level: Re-dose today (Vanc 1250mg)
- Monitoring Plan
Random Level: 12/07 0600
- Follow Up
Pharmacy will continue to follow.
Vancomycin Follow UP
- -
Patient Age: 39
Patient Sex: Male
Vancomycin Day #: 4
Indication: Bacteremia
Requesting Provider: Dr. Fofana / Teto
Pertinent Antimicrobial Allergies:
NKDA
Height / Weight:
Height 6 ft 2 in
Actual Weight 82.5 kg
IBW in k.2
Pertinent Past Medical History: IV JOCELIN
- Vital Signs / Lab Results
Temp Pulse Resp BP Pulse Ox
100.5 F H 125 20 116/80 96
12/06/24 11:25 12/06/24 13:00 12/06/24 13:00 12/06/24 13:00 12/06/24 13:00
Lab Results - Hematology
12/04/24 12/05/24 12/05/24
04:54 04:04 16:46
WBC 24.1 H 23.4 H 20.5 H
Band Neutrophils
12/06/24
03:38
WBC 17.1 H
Band Neutrophils 1 D
Lab Results - Chemistry
12/03/24 12/04/24 12/05/24
16:23 04:54 04:04
BUN 51 H 51 H 61 H
Creatinine 1.9 H 2.0 H 1.8 H
Estimated Creat Clear 59 54 61
Albumin 3.4 L 2.6 L 2.4 L
12/05/24 12/06/24 12/06/24
16:46 03:38 06:00
BUN 60 H 60 H Cancelled
Creatinine 1.6 H 1.5 H Cancelled
Estimated Creat Clear 71 76 Cancelled
Albumin 2.5 L
12/03/24 12/03/24 12/03/24
16:09 16:23 20:37
Lactic Acid Cancelled 6.5 H* 2.2 H
12/04/24 12/04/24 12/05/24
00:00 00:07 16:46
Lactic Acid Cancelled 2.0 1.3
Microbiology Results
12/05/24 13:38 Blood Culture - Preliminary
Blood/Venous Positive culture in progress
Gram Stain - Preliminary
12/03/24 09:21 Blood Culture - Final
Blood/Venous S aureus-Methicillin Sensitive
Gram Stain - Final
12/03/24 08:20 Blood Culture - Final
Blood/Venous S aureus-Methicillin Sensitive
Gram Stain - Final
12/03/24 08:38 Urine Culture - Final
Urine S aureus-Methicillin Sensitive
12/03/24 18:44 MRSA Screen - Final
Nose No Methicillin Resistant Staphylococcus aureus isolated.
Therapeutic Drug Monitoring
Random Vancomycin 14.0 ug/ml 12/06/24 03:38
[2024-12-06] MEDS: VANCOCIN 275 MG IV (13:54)
[2024-12-06 14:22] LABS: Lipase 601 U/L (23-300)
--- NOTE | 2024-12-06 14:38 | W.PN.HOSP.TC ---
Today's Communication/Plan
-
Assessment / Plan
Assessment / Plan
General: Acutely ill-appearing, intubated and sedated
HEENT: NormoCephalic, ETT in NGT in place, pupils equal
Respiratory: Mechanical breath sounds bilaterally
Cardiac: S1/S2 and Regular Rhythm; No Rub or Gallop
GI: Soft, Non Tender, Non Distended and Normal Bowel Sounds
Musculoskeletal: Bilateral upper extremity edema, no deformity
Skin: Warm and dry, multiple scattered annular scars on bilateral legs and feet
: Balderas in place draining clear yellow urine
Neuro: Sedated, no tremor
Psych: Unable to assess
Mr. Alonzo is a 39-year-old male with a medical history of polysubstance abuse (skin popping with fentanyl) who was admitted after presentation with altered mental status. He was brought in by his parents with tremors and confusion. His mental
status abruptly declined and he was intubated for airway protection. CT brain showed possible left occipital lobe mass. His blood cultures are positive for MRSA. He is currently being managed in the ICU for treatment of encephalopathy and
bacteremia.
Severe sepsis secondary to MRSA bacteremia:
- Suspect related to injection drug use
- Continues to be febrile overnight and again this morning, leukocytosis improved
- ID switched antibiotics to nafcillin
- Transthoracic echocardiogram shows no evidence of vegetations, planning KELI today 12/06
- Repeat cultures until sterile
Acute toxic metabolic encephalopathy:
- Episode of convulsive activity 12/04, now sedated with propofol and fentanyl, repeated EEG detected no evidence of epileptiform activity
- Encephalopathy likely multifactorial due to bacteremia, opiate withdrawal, and and suspected septic emboli to brain
- MRI brain consistent with suspicion for septic emboli
- Currently mechanically ventilated for airway protection, vent management per tax preparer
- Neurology following
- Continue sedation with fentanyl and Versed drips for now
LE:
- Creatinine 1.5 today, baseline appears less than 1
- Suspect related to rhabdomyolysis which is improving
- Discontinued LR as patient appears to be becoming volume overloaded, an additional dose of IV Lasix given, switch fluids to D5W for hypernatremia which is improving
Hypokalemia:
- 3.2, repleted
- Monitor
Rhabdomyolysis:
- Continue IV fluids
Elevated LFTs:
- Suspect due to severe sepsis
- Improving, monitor with treatment as above
Pancreatitis:
- Elevated lipase, CT imaging with evidence of pancreatic inflammation
- Triglycerides elevated, discontinued propofol for sedation, trend triglyceride levels
- Will trial trickle feeds if no residuals after NGT clamping trial
Lactic acidosis:
- Resolved, continue to monitor
Polysubstance abuse:
- Long history of injection drug abuse
- Continue scheduled clonidine and tizanidine, started Versed and fentanyl drip
- Can initiate buprenorphine treatment when tolerating p.o.
DVT prophylaxis: SCDs
CODE STATUS: Full code
Total time spent on today's encounter was 45 minutes
Anticipated Discharge: > 48 hours
Subjective/Interval History
-
Date of Service: December 06, 2024
Patient was seen and examined at bedside this morning. Remains intubated and sedated. Planning KELI today.
Objective Data
-
Labs:
Laboratory Results
12/06/24 12/06/24
03:38 06:00
WBC 17.1 H
Hgb 11.4 L
Hct 32.4 L
Plt Count 121 L
HCO3 25.6
Sodium 147 H Cancelled
Potassium 3.9 Cancelled
Chloride 117 H Cancelled
Carbon Dioxide 25 Cancelled
BUN 60 H Cancelled
Creatinine 1.5 H Cancelled
Glucose 143 H Cancelled
Calcium 7.7 L Cancelled
Vital Signs:
Vital Signs
Temp Pulse Resp BP Pulse Ox
100.5 F H 117 20 113/82 96
07/16/25 11:25 12/06/24 14:25 12/06/24 14:25 12/06/24 14:25 12/06/24 14:25
I&O
12/05/24 12/06/24 12/07/24
06:59 06:59 06:59
Intake Total 4549.9 / 4726.4 3515.1 / 3591.1 940 / 940
Output Total 1544 / 1574 2150 / 2165 965 / 965
Balance 3005.9 / 3152.4 1365.1 / 1426.1 -
Review of Systems
-
Unable to obtain full review of systems at this time due to: Patient Intubation
Physical Exam
-
General: Intubated
--- NOTE | 2024-12-06 14:54 | CM ---
Clamp NG trial, intubated, Await KELI, multiple IV/Medications, B/P stable off pressors, febrile at intervals. Discharge POC: TBD based on medical progression.
--- NOTE | 2024-12-06 15:44 | CONSULT.CT ---
Addendum entered and electronically signed by Saúl Barnett MD 12/07/24 06:30:
CARDIAC SURGERY ATTENDING:
I agree with the consultation note as dictated below. Mr. Alonzo remains in critical condition with severe sepsis from MRSA bacteremia (currently not requiring vasopressor support), acute toxic metabolic encephalopathy with septic emboli with
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 There are 2 echodensities associated with the P1/P2 area of his mitral valve.
There is fortunately no significant mitral regurgitation (mild). The aortic valve seems uninvolved although the valve leaflets are slightly thickened. His LVEF is preserved at 65%.
With his current medical condition, I do not believe it is prudent to proceed to the OR at present. Recommend continue to manage with IV antibiotic therapy and ongoing intensive supportive care. We will follow closely. If the patient's medical
condition responds to management and there is meaningful neurologic recovery, surgical management of his endocarditis can follow. Prior to operative intervention, would advocate for cardiac catheterization and dental evaluation (poor dentition).
Thank you.
Saúl Barnett MD
[phone]
Original Note:
Consultation
-
Date/Time Consultation Requested: 12/06/24
Date/Time Consultation Performed: 12/06/24
Requesting Provider: Franky Bridges MD
Performing Provider: Sowmya BUCHANAN for Saúl Barnett MD
Reason for Consultation: MRSA bacteremia with mitral vegetation
Patient History
Physicians
Family Physician: Matt Watson
Outpatient Prescription Benefit Specialist: N/A
Inpatient Prescription Benefit Specialist: [facility]
History of Present Illness
39-year-old male with current substance use disorder (last Fentanyl 12/02/24), was admitted to [facility] via EMS on 12/03/24 with progressive 4 day history of generalized body pain, shaking, fever, and change in mental status (speaking gibberish). Tmax on
day of admission was 101.9F and Lactate 6.5, consistent with sepsis. ECG with prolonged QTc (535ms). New LE (creat 2.0). Neurology was consulted and a CT head reported possible cortical petechial hemorrhages in the left frontal lobe and left
occipital lobe. Patient was treated with broad spectrum antibiotics, and IV fluids, and withdrawal protocol (Dilaudid, buprenorphine) for positive toxicology screen for fentanyl/cocaine. Admitted to ICU for further management and required
intubation and mechanical ventilation for progressive hypoxic respiratory failure on 12/03/24. TTE on 12/04/24 reported an EF 55-60% and no evidence of vegetation. KELI today with vegetation on mitral annulus with mild mitral regurgitation
Past Medical History
Past Medical History: Psychiatric (substance use disorder (Fentanyl/heroin/cocaine) since age 20-completed 3 rehab programs. NOT on outpatient suboxone.) and Other (MSSA soft tissue abscess 2010; Strep viridans bacteremia 2010)
Past Surgical History
Past Surgical History: Other (hernia repair, mandibular fracture with wiring)
Dental History
unknown last dental visit
Family History
Mother: Still Living
Father: Still Living
Social History
Alcohol: Occasional
Drug: Cocaine and IVDA (Fentanyl)
Tobacco: Vaping
Personal: Single
Living: With Family
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
Allergies
Allergy/AdvReac Type Severity Reaction Status Date / Time
No Known Drug Allergies Allergy Unknown Verified 12/03/24 11:44
Home Medications
�Medication �Instructions �Recorded �Confirmed �Type
Fiber-Caps (psyllium husk) 500 mg PO DAILY Supplement 12/03/24 12/03/24 History
Review of Systems
-
Unable to obtain full review of systems at this time due to: Patient Intubation
History Source: Family (father)
Physical Exam
Vital Signs
Temp 100.1 F 12/06/24 15:07
Temp route: Core 12/06/24 15:07
Pulse 122 12/06/24 15:07
Rhythm: Sinus tachycardia 12/06/24 15:07
With- Normal sinus rhythm 12/05/24 08:00
Telemetry QT: 336 12/06/24 15:07
Telemetry QTc: 479 12/06/24 15:07
Resp Rate 20 12/06/24 15:07
Blood pressure 101/72 12/06/24 15:07
Blood pressure extremity used: Right forearm 12/06/24 15:07
Position: Lying 12/06/24 15:07
MAP (cuff-[place] Monitor) 92 12/06/24 14:25
MAP 82 12/06/24 15:07
SaO2 96 12/06/24 15:28
Oxygen Mode of Delivery Ventilator 12/06/24 15:09
Other oxygen comment turned FiO2 down from 70% to 60% 12/04/24 00:30
% Oxygen delivered 40 12/06/24 15:09
Can the patient verbally communicate their pain? No 12/06/24 10:00
Pain scale rating: Pt states unable to rate 12/03/24 14:49
Arterial Systolic Pressure 88 12/06/24 15:07
Arterial Diastolic Pressure 57 12/06/24 15:07
MAP (Q-Yqjr-Tchyvjz Monitor) 73 12/06/24 14:25
MAP A-Line 67 12/06/24 15:07
Actual Weight 82.5 kg 12/06/24 05:49
Body Mass Index (BMI) 23.4 12/06/24 05:49
etC02 value 25 12/04/24 11:30
Oxygen Saturation with Activity 80 12/03/24 19:30
Labs
12/06/24 03:38
12/06/24 06:00
Hemoglobin A1c 6.4 % (4.0-5.6) H 12/05/24 04:04
Arterial Blood Gases
pH 7.46 (7.35-7.45) H 12/06/24 03:38
pCO2 36 mmHg (35-48) 12/06/24 03:38
pO2 185 mmHg (83-108) H 12/06/24 03:38
HCO3 25.6 mmol/L (21-28) 12/06/24 03:38
Base Excess 1.9 mmol/L 12/06/24 03:38
ABG O2 Sat (Measured) 99.5 % (94-98) H 12/06/24 03:38
O2 Delivery Level 12/06/24 03:38
Urinalysis
Urine Color Yellow 12/03/24 08:38
Urine Clarity Clear (Clear) 12/03/24 08:38
Urine pH 6.0 (5.0-9.0) 12/03/24 08:38
Ur Specific [place] 1.015 (<1.030) 12/03/24 08:38
Urine Ketones Negative (Negative) 12/03/24 08:38
Ur Occult Blood Reflex 3+ (Negative) A 12/03/24 08:38
Urine Bilirubin Negative (Negative) 12/03/24 08:38
Leukocyte Esterase Rfl 1+ (Negative) A 12/03/24 08:38
Urine RBC 7-10 /HPF (0-2) A 12/03/24 08:38
Urine WBC (Reflex) 3-5 /HPF (0-5) 12/03/24 08:38
Ur Squamous Epith Cells 0-2 /LPF (Few) 12/03/24 08:38
Urine Bacteria (Reflex) Moderate (Negative) A 12/03/24 08:38
Urine Glucose Negative (Negative) 12/03/24 08:38
Urine Albumin (Reflex) 2+ (Neg - Trace) A 12/03/24 08:38
Diagnostic Studies
KELI 12/06/24:
EF 65%. Normal right ventricular size and function. There is a large somewhat mobile echodensity attached to the mitral annulus located around the P1 and P2 scallop. This is highly suggestive of endocarditis. The 2 components of these
echodensities measured 1.3 x 1 cm and 0.9 x 1 cm. There was mild mitral regurgitation with no significant mitral stenosis. While there was no clear abscess present, the location of the endocarditis near the mitral annulus suggest this cannot be
ruled out on the study. Thickened trileaflet aortic valve leaflets. No clear endocarditis present. No significant aortic regurgitation. Minimally thickened tricuspid valve with trace tricuspid regurgitation. No clear endocarditis.
Exam
General: Fever, Intubated and Other (ill appearing thin male)
HEENT: Normocephalic, Anicteric and Other (poor dentition)
Neck: Trachea Midline
Respiratory: Clear and Other (#8OT @ 24cm 500/40%/20 (CMV))
Cardiac: S1/S2 and Regular Rhythm (tachycardia (116BPM) on telemetry)
GI: Soft, Non Tender, Normal Bowel Sounds and Other (NGT Right nares to low suction)
Rectal: Deferred by Provider
Skin: Warm and Dry
Neuro: Sedated (on Fentanyl/Versed)
Extremities: Upper Level Edema (+2 B/L hand and +1 B/L pedal edema) and Other (?Osler nodes on fingertips, no splinter hemorrhages noted. Multiple scabbed areas B/L lower extremities. LUE PICC intact)
Lymph: No Lymphadenopathy
Psych: Other (intubated/sedated)
Assessment / Plan
-
39 year old male with JOCELIN, hypoxic respiratory failure, LE (improving creat 2.0>1.5), MRSA bacteremia (12/05), now with mitral annular vegetation on KELI performed 12/06
- case d/w surgeon
- surgeon to review imaging
- ideally want to have sterile blood cultures (still positive 12/05) and extubate patient to have discussion re: surgery
- if deemed a surgery candidate>will need Panelipse (when extubated) and probable need for dental evaluation d/t poor dentition
Data Reviewed
-
EKG: Report Reviewed by me and Discussed with Physician
Echo: Report Reviewed by me and Discussed with Physician
Radiology: Report Reviewed by me and Discussed with Physician
CT Scan: Report Reviewed by me and Discussed with Physician
Labs: Labs Reviewed by me and Discussed with Physician
Old Records: Reviewed
--- NOTE | 2024-12-06 18:13 | PTCARENOTE ---
Assessment and overall vital signs trends unchanged. Continue with trends as documented. Continue update with consults and their teams. KELI completed, follow up with cv and cv surgery continue to follow along. Antibiotics as per I/D. Update with
hospice physician team follow up plan of cares with family at bedside. Continue supportive cares and emotional support. Complete skin cares and cg bath, positive bm noted. Hourly rounds and frequent patient safety checks ongoing.
[2024-12-07] VITALS (23 sets, daily range): BP systolic 104–148; BP diastolic 77–112; BMI 23.0
[2024-12-07 00:20] LABS: Blood Urea Nitrogen 66 mg/dl (9-20); Calcium 7.8 mg/dl (8.4-10.2); Carbon Dioxide 28 mmol/L (22-30); Chloride 115 mmol/L (98-107); Estimated Creatinine Clearance 65 ml/min; Glucose 135 mg/dl (70-99); Potassium 3.5 mmol/L (3.5-5.1); Sodium 144 mmol/L (135-145); eGFR 49.10
[2024-12-07] MEDS: SUBLIMAZE 100 IV ×5 (00:53→20:27)
--- NOTE | 2024-12-07 01:09 | PTCARENOTE ---
ICU PARTY DEMONSTRATOR made aware of low UOP over last 2 hrs, lasix and potassium replacement ordered. neuro status remains unchanged (delayed cough/gag, +corneal reflex, w/d to pain, pupils reactive, no purposeful mvmt). versed/fent/d5w gtts continue. full bed
bath done. current temp 100.0. vent settings remain AC 20/500/5/40%, thick clear oral secretions. care ongoing.
[2024-12-07] MEDS: KCL 270 MEQ IV (01:21)
[2024-12-07] MEDS: LASIX 40 MG IV (01:21)
[2024-12-07] MEDS: VERSED 2 MG IV ×6 (02:02→20:39)
--- NOTE | 2024-12-07 02:05 | PTCARENOTE ---
Addendum entered by Ev Fang RN 12/07/24 02:38:
tremors subsided after PRN versed and gtt increase, then returned, ICU CRIMINAL ANALYST made aware. stat dose of versed given and gtt increased.
Original Note:
pt with full body twitching, pupils now 8mm and still reactive. ICU CRIMINAL ANALYST to bedside, PRN versed dose given and gtt increased per protocol. care continues.
[2024-12-07] MEDS: SUBLIMAZE 50 MCG IV ×2 (03:46→09:15)
[2024-12-07 03:47] LABS: B.E. 4.0 mmol/L; HCO3 27.4 mmol/L (21-28); O2 Saturation % 99.2 % (94-98); PCO2 36 mmHg (35-48); PO2 113 mmHg (83-108)
[2024-12-07 04:06] LABS: Hematocrit 31.7 % (39.0-52.0); Hemoglobin 11.3 g/dL (13.0-18.0); Mean Corp Hgb Conc. 35.6 g/dL (33.0-37.0); Mean Corpuscular Volume 82.8 fL (80.0-94.0); Platelet Count 113 10^3/uL (130-400); Red Cell Dist. Width 13.0 % (11.5-14.5)
[2024-12-07] MEDS: VERSED 50 IV ×2 (04:07→14:23)
[2024-12-07 04:41] LABS: ALT (SGPT) 47 U/L (0-50); AST (SGOT) 52 U/L (17-59); Albumin 2.5 g/dl (3.5-5.0); Alkaline Phosphatase 113 U/L (38-126); Blood Urea Nitrogen 62 mg/dl (9-20); Calcium 7.5 mg/dl (8.4-10.2); Carbon Dioxide 26 mmol/L (22-30); Chloride 115 mmol/L (98-107); Estimated Creatinine Clearance 65 ml/min; Glucose 140 mg/dl (70-99); Magnesium 1.9 mg/dl (1.6-2.3); Potassium 3.7 mmol/L (3.5-5.1); Sodium 148 mmol/L (135-145); Total Protein 5.7 g/dl (6.3-8.2); Triglycerides 442 mg/dl (10-149); eGFR 49.10
[2024-12-07] MEDS: CATAPRES 0.2 MG TUBE ×4 (04:51→23:46)
[2024-12-07] MEDS: ZANAFLEX 2 MG TUBE ×4 (04:51→23:46)
[2024-12-07] MEDS: TYLENOL ORAL SOLUTION 650 MG TUBE ×4 (04:52→21:33)
[2024-12-07] MEDS: NAFCIL 108 MG IV ×6 (05:53→23:46)
[2024-12-07 07:27] LABS: Nucleated Red Blood Cells % 0.1 % (-)
[2024-12-07] MEDS: MIRALAX TUBE (08:27)
[2024-12-07] MEDS: PROTONIX IV 40 MG IV (08:36)
[2024-12-07] MEDS: NSS (PRESERVATIVE FREE) 10 ML IV (08:36)
[2024-12-07] MEDS: LOW STRENGTH ASPIRIN 81 MG TUBE (08:36)
[2024-12-07] MEDS: THIAMINE INJECTION 100 MG IV (08:36)
--- NOTE | 2024-12-07 09:23 | PHA.VAN.FU ---
Vancomycin Assessment / Plan
- Assessment
Renal Function: Stable
WBC's are: Trending Up
In the past 24 hrs, patient has been: Febrile
Concomitant Antimicrobials: nafcillin
- Assessment - Therapeutic Drug Monitoring
Random Level: 19.2 - drawn ~13.5H after previous dose of 1250mg
Shortened interval between dose and level - expect patient to have additional clearance
- Dosing Plan
Dosing by Level: Re-dose today (Vanc 1250mg)
- Monitoring Plan
Random Level: 12/08 0600
- Follow Up
Pharmacy will continue to follow.
Vancomycin Follow UP
- -
Patient Age: 39
Patient Sex: Male
Vancomycin Day #: 5
Indication: Bacteremia
Requesting Provider: Dr. Fofana / Teto
Pertinent Antimicrobial Allergies:
NKDA
Height / Weight:
Height 6 ft 2 in
Actual Weight 81.2 kg
IBW in k.2
Pertinent Past Medical History: IV JOCELIN
- Vital Signs / Lab Results
Temp Pulse Resp BP Pulse Ox
100.8 F H 114 20 111/79 100
12/07/24 08:00 12/07/24 06:27 12/07/24 06:27 12/07/24 06:27 12/07/24 07:58
Lab Results - Hematology
12/05/24 12/05/24 12/06/24
04:04 16:46 03:38
WBC 23.4 H 20.5 H 17.1 H
Band Neutrophils 1 D
12/07/24
03:34
WBC 22.4 H
Band Neutrophils
Lab Results - Chemistry
12/05/24 12/05/24 12/06/24
04:04 16:46 03:38
BUN 61 H 60 H 60 H
Creatinine 1.8 H 1.6 H 1.5 H
Estimated Creat Clear 61 71 76
Albumin 2.4 L 2.5 L
12/06/24 12/06/24 12/07/24
06:00 23:48 03:34
BUN Cancelled 66 H 62 H
Creatinine Cancelled 1.8 H 1.8 H
Estimated Creat Clear Cancelled 65 65
Albumin 2.5 L
12/05/24
16:46
Lactic Acid 1.3
Microbiology Results
12/03/24 08:20 Blood Culture - Final
Blood/Venous S aureus-Methicillin Sensitive
Gram Stain - Final
12/05/24 16:46 Blood Culture - Preliminary
Blood/Venous Positive culture in progress
Gram Stain - Preliminary
12/05/24 13:38 Blood Culture - Preliminary
Blood/Venous Staph aureus MRSA
Gram Stain - Preliminary
12/03/24 09:21 Blood Culture - Final
Blood/Venous S aureus-Methicillin Sensitive
Gram Stain - Final
12/03/24 08:38 Urine Culture - Final
Urine S aureus-Methicillin Sensitive
12/03/24 18:44 MRSA Screen - Final
Nose No Methicillin Resistant Staphylococcus aureus isolated.
Therapeutic Drug Monitoring
Random Vancomycin 19.2 ug/ml 12/07/24 03:34
[2024-12-07] MEDS: VANCOCIN 275 MG IV (10:33)
--- NOTE | 2024-12-07 10:37 | W.PN.ID1 ---
Date of Service
Date of Service: December 07, 2024
Today's Communication
Continue IV Vancomycin and Nafcillin 2g IV q4h for now.
Assessment / Plan
# Complicated Staphylococcus aureus bacteremia
# MV infected endocarditis with large vegetation
# Multiple embolic CVA
# New Seizure
# Fever persists
# Leukocytosis trended up
# Intubated 12/03
# LE
# Polysubstance abuse (cocaine and fentanyl skin/muscle popper)
# hx MRSA wound abscesses (2010)
# hx of Viridans strep bacteremia (2010)
- Patient is critically ill and not surgical candidate at this time, per CTS.
- Repeat blood cultures until clear
- Discussed with microbiology. There is discrepancy between blood cx PCR identified as MRSA and microscan - identified as MSSA
Further work-up in progress.
- Continue IV Vancomycin and Nafcillin 2g IV q4h for now.
Monitor renal function and LFT's while on nafcillin.
- Trend wbc, temps.
- Prognosis remains guarded
Chief Complaint
-: Clinical Sepsis, Bacteremia and Other (embolic CVA)
Vital Signs / Physical Exam
Vital Signs
Vital Signs
Temp Pulse Resp BP Pulse Ox
100.8 F H 114 20 111/79 100
12/07/24 08:00 12/07/24 06:27 12/07/24 06:27 12/07/24 06:27 12/07/24 07:58
Physical Exam
Constitutional: Acutely Ill
Oropharyngeal: Poor Dention
Cardiovascular: S1/S2 and Other (tachycardic)
Pulmonary: Clear
Gastrointestinal: Soft, Non Tender and Non Distended
Genito-Urinary: Balderas and Clear Urine
Extremities: Edema
Neurological: Other (sedated)
Objective Data
Lab Data
Lab Results
12/07/24 03:34
12/07/24 03:34
Estimated Creat Clear 65 ml/min 12/07/24 03:34
Lactic Acid 1.3 mmol/L (0.7-2.0) 12/05/24 16:46
Total Bilirubin 2.8 mg/dl (0.2-1.3) H D 12/07/24 03:34
AST 52 U/L (17-59) 12/07/24 03:34
ALT 47 U/L (0-50) 12/07/24 03:34
Alkaline Phosphatase 113 U/L (38-126) 12/07/24 03:34
Amylase 139 U/L (30-110) H 12/05/24 04:04
Most recent labs reviewed.
Micro Results:
12/07/24 04:06 Blood Culture - Pending
Blood/Venous
12/03/24 08:20 Blood Culture - Final
Blood/Venous S aureus-Methicillin Sensitive
Gram Stain - Final
12/05/24 16:46 Blood Culture - Preliminary
Blood/Venous Positive culture in progress
Gram Stain - Preliminary
12/05/24 13:38 Blood Culture - Preliminary
Blood/Venous Staph aureus MRSA
Gram Stain - Preliminary
12/03/24 09:21 Blood Culture - Final
Blood/Venous S aureus-Methicillin Sensitive
Gram Stain - Final
12/03/24 08:38 Urine Culture - Final
Urine S aureus-Methicillin Sensitive
12/03/24 18:44 MRSA Screen - Final
Nose No Methicillin Resistant Staphylococcus aureus isolated.
12/05/24 CT a/p: Mild inflammatory change adjacent to the body and tail of the pancreas, suggestive of mild pancreatitis. No peripancreatic fluid collection appreciated. No evidence of intestinal obstruction or bowel inflammatory process. Study is
slightly limited by lack of intravenous or oral contrast. Gallbladder sludge without evidence of acute cholecystitis. No radiopaque gallstones are seen.
12/04/24 MRI brain: Numerous scattered acute infarctions in a distribution that is most suggestive of embolic phenomenon in the setting of known IV drug abuse. Multiple small microhemorrhages are also demonstrated.
12/03/24 CXR: Clear lungs.
12/03/[address]: Possible cortical petechial hemorrhages in the left frontal lobe and left occipital lobe. Possible small old infarct, periventricular small vessel ischemic disease or edema due to underlying mass in the left occipital lobe.
--- NOTE | 2024-12-07 12:11 | PTCARENOTE ---
Update with vascular team. Patient oob for lunch, ambulate diallo way with staff. Await patient dtv time 1500hrs. Encourage po intake and follow up i/o and discharge plan of cares.
--- NOTE | 2024-12-07 12:34 | PTCARENOTE ---
Update with plastic parts fabricator trimmer and hospitalist team thru shift and bedside with family. CT scan of head completed. Continue follow up vital sign trends. Patient with noted desaturation and ventilator desynchrony this am. Follow up ventilator changes and
recovery. Family in and out at bedside. Updated plan of cares. Continue antibiotic, culture trends as per infectious disease team. Hourly rounds ongoing. Updates with respiratory cares team, continue present wean of fio2.
--- NOTE | 2024-12-07 12:49 | W.PN.CARDCBS ---
Today's Communication / Plan
-
KELI with large vegetations on the mitral annulus.
Continue broad-spectrum antibiotics to cover Staph aureus. He remains unclear whether this is MRSA or MSSA
He remains ventilated. Await repeat head CT. Previous MRI consistent with shower emboli.
Creatinine overall stable at 1.8. Weight is overall up. Will check proBNP but would likely recommend low-dose diuretics at this time.
Unfortunately he also has pancreatitis, and need to monitor his fluid status closely.
Case was discussed with CT surgery and plan for now is observation and supportive care.
Long-term prognosis is poor.
Impression / Plan
-
Primary Tire Layer: none prior to admission
Assessment:
Presentation with change in mental status
Sepsis
Septic emboli by brain MRI
MSSA bacteremia
Pancreatitis
TME
VDRF
LE
Rhabdomyolysis
Elevated LFTs
Thrombocytopenia
IVDA since age 19
Vaping
ECHO 12/04/24: EF 55 to 60%, no regional wall motion abnormalities noted, no evidence of vegetation seen
KELI 12/07/24: EF 65%, large endocarditis/vegetations attached to mitral annulus measuring ~1x1cm each, mild MR, no Tricuspid or aortic vegetations
Plan:
-Remains critically ill and results of transesophageal echo reviewed with family, magnet valve assembler, and CT surgery. He has large vegetations attached to his mitral annulus consistent with endocarditis.
-Continue broad-spectrum antibiotics. Remains unclear whether this is MSSA or MRSA. Will defer to infectious disease. He will need long-term antibiotics.
-At this point he remains critically ill with multiorgan system failure including renal failure, septic emboli to the brain and vent dependent respiratory failure. He is too sick for CT surgery intervention at this time.
-If he recovers, based on the size of his lesion, staff aureus, and known septic emboli he will be reasonable to consider fixing his mitral valve surgically.
-He continues to be febrile and cultures remain positive.
-Lipase remains abnormal at about 600. His triglycerides are improved and down to 442. Will continue to avoid any sort of carbohydrate in his feeding supplementation.
-Continue to avoid meds which will increase triglycerides as patient also has low-level pancreatitis.
- UDS positive for cocaine, fentanyl. discussed importance moving forward of illicit drug cessation/avoidance with family.
-Platelet count overall stable at 113,000
- will follow
-discussed with nursing and family.
CC time 35 min
Progress Note - Tire Layer
Subjective
Date of Service: December 07, 2024
still febrile. remains on vent.
Objective
Labs:
12/07/24 03:34
12/07/24 03:34
Labs
Hgb 11.3 g/dL (13.0-18.0) L 12/07/24 03:34
Hct 31.7 % (39.0-52.0) L 12/07/24 03:34
Plt Count 113 10^3/uL (130-400) L 12/07/24 03:34
Sodium 148 mmol/L (135-145) H 12/07/24 03:34
Potassium 3.7 mmol/L (3.5-5.1) 12/07/24 03:34
BUN 62 mg/dl (9-20) H 12/07/24 03:34
Creatinine 1.8 mg/dL (0.7-1.3) H 12/07/24 03:34
Glucose 140 mg/dl (70-99) H 12/07/24 03:34
Vital Signs and I&O:
Vital Signs
Temp Pulse Resp BP Pulse Ox
101 F H 120 24 141/97 96
12/07/24 10:50 12/07/24 11:29 12/07/24 11:00 12/07/24 11:29 12/07/24 12:00
Vital Signs
Temp Pulse Resp BP Pulse Ox
101 F H 120 24 141/97 96
12/07/24 10:50 12/07/24 11:29 12/07/24 11:00 12/07/24 11:29 12/07/24 12:00
Intake & Output
12/05/24 12/06/24 12/07/24 12/08/24
06:59 06:59 06:59 06:59
Intake Total 4549.9 / 4726.4 3515.1 / 3591.1 3101.5 / 3176.5 1281 / 1281
Output Total 1544 / 1574 2150 / 2165 4570 / 4820 1600 / 1600
Balance 3005.9 / 3152.4 1365.1 / 1426.1 -1468.5 / -1643.5 -319 / -319
Physical Exam
Physical Exam
GEN: intubated/sedated
HEENT: supple, anicteric, mmm, ET tube
LUNGS: scatt rhonchi
CV: Reg, tachy, S1/S2, 1/6 syst LSB, no gallop
ABD: soft, BS+, NT/ND
EXT: No edema
NEURO: unable to assess
SKIN: echymosis
--- NOTE | 2024-12-07 14:30 | W.PN.INTV ---
Today's Communication / Plan
Recommendations
- CT head without contrast
- Add Seroquel 75 mg nightly
- Tentative plan to initiate postpyloric trickle tube feeding 12/08
- SAT SBT 12/08
- Lasix 20 mg IV x 1
Assessment
-
39-year-old male with history of polysubstance abuse, presents with 4 days of fevers, progressive 2 days of tremors, nausea/emesis on day of admission found to have confusion, suspected sepsis, multiple brain lesions, transaminitis, rhabdomyolysis.
Patient treated with IV antibiotics, IV fluids, withdrawal protocol with Dilaudid, buprenorphine in the ED. Also found to have prolonged QT. Admitted to ICU for further management. Required intubation and mechanical ventilation starting 12/03.
Conditions present prior to admission
History of MRSA bacteremia 2010
Right forearm abscess
Right mandibular fracture 2010
Status post closed reduction
12/07 overview: Patient currently mechanically ventilated, volume assist-control 500/20/50%/8, ABG this morning 7.40 9/36/113. Not needing any pressors, current MAP of 84. Patient continues to have fever. Current infusions Versed and fentanyl
along with D5W
Assessment and plan
#1. Polysubstance drug use with severe sepsis, MSSA/MRSA bacteremia and mitral valve endocarditis
- Suspect embolic intracranial cortical petechial hemorrhages
- Lactic acid as high as 6.5, serial lactate down to 2.0, s/p IV hydration, intubation and mechanical ventilation
- ID service on case, currently on IV nafcillin and IV vancomycin, some diagnostic uncertainty about MSSA versus MRSA versus both
- CT surgery on case, patient not felt to be currently a candidate for surgical intervention due to critical illness.
#2. Acute toxic metabolic encephalopathy, ?seizures
- Related to severe sepsis, lactic acidosis, MRSA bacteremia as well as intracranial petechial hemorrhages
- Petechial hemorrhages confirmed on MRI. Aspirin 81 mg started per neurology service
- Patient required intubation on 07/13 due to worsening encephalopathy
- Neurology on case
- Episodes of tremulousness with ventilator asynchrony, tachypnea and desaturation. Concerning for seizure, however both cerebellar and subsequent EEG negative. Neurology on case. Presentation more likely related to withdrawal.
- Follow-up CT head today to evaluate for any changes in the prior areas of petechial hemorrhages.
- Start Seroquel 75 mg nightly.
- Patient developed desaturations during asynchrony with mechanical ventilation.
#3. Lactic acidosis
- Due to MSSA bacteremia and severe sepsis
- Improving with IV hydration and intubation with mechanical ventilation
#4. Acute renal insufficiency, hypernatremia
- Nonoliguric, creatinine stable to improving.
- Continue to stay off IV fluids, give another Lasix 20 mg x 1 today.
- Continue D5W for hypernatremia, gradually improving
- Good urine output, -1.8 L fluid balance last 24 hours
#5. Acute transaminitis and Acute rhabdomyolysis
- In the setting of severe sepsis, polysubstance drug use
- IV fluids stopped as patient developing anasarca, diuresis as needed
#6. Polysubstance abuse
- Continue clonidine as ordered, buprenorphine protocol when able to take p.o.
- Continue empiric thiamine replacement
- Continue fentanyl infusion, added Versed drip in view of difficult to control intermittent ventilator asynchrony, suspect withdrawal symptoms
- Add Seroquel 75 mg nightly, continue clonidine and tizanidine
#7. QT prolongation
- Suspect in the setting of electrolyte imbalance
- Follow-up EKG shows improving QTc
- Continue to replace potassium as needed
- Follow-up K, mag and phosphorus levels closely
#8. Vomiting, Acute pancreatitis
- Elevated lipase noted
- Plan to start postpyloric trickle tube feeding 12/08
#9.Elevated Triglycerides
- Propofol infusion discontinued on 12/05, monitor for now
- Follow-up levels improving
DVT prophylaxis, Continue subcu heparin. GI prophylaxis with IV PPI.
Updated patient's family at bedside.
Critical Care time 52 mins -- The patient is admitted for acute critical illness for the treatment of vital organ failure and/or prevention of further life-threatening conditions. Total care includes time spent in review of history, physical exam,
medications, hemodynamic/ventilator parameters, laboratory data, imaging and discussion with house staff, pharmacy, respiratory therapy, card brusher, and nursing.
Subjective Dataa
Subjective Data
Date of Service:
Date of Service: December 07, 2024
Subjective:
Patient currently intubated, mechanically ventilated and sedated
Objective Data
Data Reviewed
Vital Signs / I&O / Oxygen:
Vital Signs
Temp Pulse Resp BP Pulse Ox
101.1 F H 115 26 104/77 98
12/07/24 13:07 12/07/24 13:07 12/07/24 13:07 12/07/24 13:07 12/07/24 13:08
Intake and Output
12/06/24 12/07/24 12/08/24
06:59 06:59 06:59
Intake Total 3515.1 / 3591.1 3101.5 / 3176.5 1356 / 1356
Output Total 2150 / 2165 4570 / 4820 1750 / 1750
Balance 1365.1 / 1426.1 -1468.5 / -1643.5 -394 / -394
SaO2 [A/C] 96
SaO2 98
Physical Exam
General: Other (Appears more synchronous with vent)
HEENT: Normocephalic
Cardiovascular: S1-S2
Respiratory: Clear and Non-Labored Respirations
GI: Soft and Distended
Neurology: Other (Sedated)
Skin: Warm
Labs/Micro/Reports
Lab Data
12/07/24 03:34
12/07/24 03:34
Laboratory Results
12/07/24
03:34
pH 7.49 H
pCO2 36
pO2 113 H
HCO3 27.4
O2 Delivery Level
Microbiology
12/05/24 16:46 Blood/Venous Blood Culture - Preliminary
Staphylococcus aureus
12/05/24 16:46 Blood/Venous Gram Stain - Preliminary
12/05/24 13:38 Blood/Venous Blood Culture - Preliminary
Staph aureus MRSA
12/05/24 13:38 Blood/Venous Gram Stain - Preliminary
12/03/24 08:20 Blood/Venous Blood Culture - Final
S aureus-Methicillin Sensitive
12/03/24 08:20 Blood/Venous Gram Stain - Final
12/03/24 09:21 Blood/Venous Blood Culture - Final
S aureus-Methicillin Sensitive
12/03/24 09:21 Blood/Venous Gram Stain - Final
12/03/24 08:38 Urine Urine Culture - Final
S aureus-Methicillin Sensitive
12/03/24 18:44 Nose MRSA Screen - Final
No Methicillin Resistant Staphylococcus aureus isolated.
[2024-12-07] MEDS: LASIX 20 MG IV (14:54)
--- NOTE | 2024-12-07 16:47 | W.PN.HOSP.TC ---
Today's Communication/Plan
-
Assessment / Plan
Assessment / Plan
General: Acutely ill-appearing, intubated and sedated
HEENT: NormoCephalic, ETT in NGT in place, pupils equal with rightward/upward conjugate gaze
Respiratory: Mechanical breath sounds bilaterally
Cardiac: S1/S2 and Regular Rhythm; No Rub or Gallop
GI: Soft, Non Tender, Non Distended and Normal Bowel Sounds, FMS in place
Musculoskeletal: Bilateral upper extremity edema, no deformity
Skin: Warm and dry, multiple scattered annular scars on bilateral legs and feet
: Balderas in place draining clear yellow urine
Neuro: Sedated, intermittent bilateral upper extremity tremors
Psych: Unable to assess
Mr. Alonzo is a 39-year-old male with a medical history of polysubstance abuse (skin popping with fentanyl) who was admitted after presentation with altered mental status. He was brought in by his parents with tremors and confusion. His mental
status abruptly declined and he was intubated for airway protection. CT brain showed possible left occipital lobe mass. His blood cultures are positive for MRSA. He is currently being managed in the ICU for treatment of encephalopathy and
bacteremia.
Severe sepsis secondary to MRSA/MSSA bacteremia:
- Suspect related to injection drug use, diagnostic uncertainty as to whether patient is infected with MRSA/MSSA or both
- Persistently febrile since yesterday with Tmax 102.1 �F, leukocytosis worsened to 22,000 today
- Transesophageal echocardiogram 12/06 showed large mitral annulus vegetation
- No current plans for cardiothoracic surgery due to critical illness
- ID following, continue antibiotics with vancomycin and nafcillin
Acute toxic metabolic encephalopathy:
- Episode of convulsive activity 12/04, now sedated with propofol and fentanyl, continues to have intermittent tremors, spot EEG detected no evidence of epileptiform activity, will attempt 24-hour EEG if possible
- Encephalopathy likely multifactorial due to bacteremia, opiate withdrawal, and and suspected septic emboli to brain
- MRI brain consistent with suspicion for septic emboli, repeat CT brain shows stable findings
- Currently mechanically ventilated for airway protection, vent management per construction carpenters helper
- Neurology following, started Seroquel nightly
- Continue sedation with fentanyl and Versed drips for now
LE:
- Creatinine 1.8 today, baseline appears less than 1
- Suspect related to rhabdomyolysis which is improving
- Discontinued LR as patient appears to be becoming volume overloaded, additional dose of IV Lasix given, switched fluids to D5W for hypernatremia
Hypokalemia:
- Resolved
Rhabdomyolysis:
- Continue IV fluids
Elevated LFTs:
- Suspect due to severe sepsis
- Improving, monitor with treatment as above
Pancreatitis:
- Elevated lipase, CT imaging with evidence of pancreatic inflammation
- Triglycerides elevated but improving, discontinued propofol for sedation, trend triglyceride levels
- Tentative plan to trial postpyloric trickle feeds tomorrow 12/08
Lactic acidosis:
- Resolved, continue to monitor
Polysubstance abuse:
- Long history of injection drug abuse
- Continue scheduled clonidine and tizanidine, started Versed and fentanyl drip
- Can initiate buprenorphine treatment when tolerating p.o.
DVT prophylaxis: SCDs
CODE STATUS: Full code
Total time spent on today's encounter was 45 minutes
Anticipated Discharge: > 48 hours
Subjective/Interval History
-
Date of Service: December 07, 2024
Patient was seen and examined at bedside this morning. Transesophageal echocardiogram yesterday showed large mitral annulus vegetation which is likely the source of septic emboli to the brain. No current plans for cardiothoracic surgery until
patient is more medically stable. Diagnostic uncertainty as to whether patient has bloodstream infection with MRSA, MSSA, or both. Continuing antibiotic coverage with vancomycin and nafcillin.
Objective Data
-
Vital Signs:
Vital Signs
Temp Pulse Resp BP Pulse Ox
102.1 F H 118 26 117/84 98
12/07/24 16:36 12/07/24 14:54 12/07/24 13:07 12/07/24 14:54 12/07/24 16:14
I&O
12/06/24 12/07/24 12/08/24
06:59 06:59 06:59
Intake Total 3515.1 / 3591.1 3101.5 / 3176.5 1689 / 1689
Output Total 2150 / 2165 4570 / 4820 2150 / 2150
Balance 1365.1 / 1426.1 -1468.5 / -1643.5 -461 / -461
Review of Systems
-
Unable to obtain full review of systems at this time due to: Patient Intubation
Physical Exam
-
General: Intubated
--- NOTE | 2024-12-07 16:56 | PTCARENOTE ---
Update with engraved roller inspector team. Return patient to cooling blanket. Temperature trends ongoing. Low manual mode to decrease agitation with vital trends as per protocol. Complete bed bath. Following antibiotics, updates with pharmacy. Continue ongoing
unit based protocols. Follow up plan of cares. Supportive cares and teaching ongoing for patient and clint jenkins. Critical care nursing at bedside.
[2024-12-07] MEDS: D5W 1000 IV (19:27)
[2024-12-07] MEDS: HEPARIN 5000 UNITS SC (19:27)
[2024-12-07] MEDS: SEROQUEL 75 MG TUBE (21:34)
--- NOTE | 2024-12-07 23:55 | PTCARENOTE ---
pt reassessed. neuro status remains unchanged, see full assessment. bite block placed d/t pt clamping down on ETT. vent settings AC 20/500/8/40%. cooling blanket continues. zambrano and FMS intact. versed/fent/D5W gtts continue. care ongoing.
[2024-12-08] VITALS (10 sets, daily range): BP systolic 93–186; BP diastolic 71–122; BMI 23.8
[2024-12-08] MEDS: VERSED 50 IV ×4 (01:04→20:12)
[2024-12-08] MEDS: SUBLIMAZE 100 IV ×5 (01:04→21:47)
[2024-12-08] MEDS: VERSED 2 MG IV ×2 (03:08→04:36)
[2024-12-08 03:19] LABS: B.E. 3.2 mmol/L; HCO3 26.9 mmol/L (21-28); O2 Saturation % 99.4 % (94-98); O2 Therapy 40%; PCO2 37 mmHg (35-48); PO2 147 mmHg (83-108)
[2024-12-08 03:20] LABS: Hematocrit 30.4 % (39.0-52.0); Hemoglobin 10.8 g/dL (13.0-18.0); Mean Corp Hgb Conc. 35.5 g/dL (33.0-37.0); Mean Corpuscular Volume 85.2 fL (80.0-94.0); Platelet Count 125 10^3/uL (130-400); Red Cell Dist. Width 13.3 % (11.5-14.5)
[2024-12-08] MEDS: SUBLIMAZE 50 MCG IV ×2 (03:24→04:35)
[2024-12-08] MEDS: VERSED 5 MG IV ×4 (03:31→12:21)
[2024-12-08 03:33] LABS: ALT (SGPT) 36 U/L (0-50); AST (SGOT) 45 U/L (17-59); Albumin 2.6 g/dl (3.5-5.0); Alkaline Phosphatase 96 U/L (38-126); Blood Urea Nitrogen 64 mg/dl (9-20); Calcium 7.7 mg/dl (8.4-10.2); Carbon Dioxide 29 mmol/L (22-30); Chloride 118 mmol/L (98-107); Estimated Creatinine Clearance 61 ml/min; Glucose 149 mg/dl (70-99); Magnesium 2.1 mg/dl (1.6-2.3); Potassium 3.3 mmol/L (3.5-5.1); Sodium 150 mmol/L (135-145); Total Protein 6.0 g/dl (6.3-8.2); eGFR 46.02
[2024-12-08 03:35] LABS: Triglycerides 412 mg/dl (10-149)
[2024-12-08] MEDS: NSS 1000 IV (03:48)
[2024-12-08] MEDS: LEVOPHED 250 IV (03:49)
[2024-12-08] MEDS: NEO-SYNEPHRINE 250 IV (03:49)
[2024-12-08] MEDS: NIMBEX 12 MG IV (03:51)
[2024-12-08] MEDS: REFRESH CELLUVISC GEL 1 DROPS OPHTH ×2 (04:40→16:15)
[2024-12-08] MEDS: NAFCIL 108 MG IV ×6 (04:40→23:07)
[2024-12-08] MEDS: KEPPRA 1000 MG IV ×2 (04:40→08:33)
--- NOTE | 2024-12-08 04:40 | W.PN.UPDATE ---
Update Note
Progress Note Update
12/08/2024
0330- Patient having visible shaking/tremors arms, legs, and abdomen. Eyes rolled upwards and fixed. Extremely dyssynchronous with the ventilator, tachypnea, and unable to continuously get tidal volumes and high peak pressures 40s. Additional
sedation ordered versed IV and fentanyl IV. Patient continued with abnormal movements. Then patient was tachycardic 120s suddenly dropped to 50-60s with hypotension 40-50s. Quickly IVF NSS bolus opened wide and levophed and lisandra gtts added and
titrated for hypotension. Additional versed IV given and continued ventilation issues concerning for seizure like activity patient was paralyzed with nimbex. Oral airway was previously inserted earlier in the shift, ETT was not clamped or bitten.
Dr. Lao, yard engineer called and events discussed. Recommendations received: increase versed gtt as needed for sedation with boluses IV, rapid EEG with Ceribell device, start keppra IV for concern seizure like activity, and if needed could
possibly start ketamine in addition for sedation.
[2024-12-08] MEDS: VERSED IV (05:01)
[2024-12-08] MEDS: CATAPRES 0.2 MG TUBE ×4 (05:22→23:07)
[2024-12-08] MEDS: ZANAFLEX 2 MG TUBE ×4 (05:22→23:07)
--- NOTE | 2024-12-08 05:53 | PTCARENOTE ---
0330- while cleaning pt BM, pt became extremely tremulous, upward gaze noted, RR 50s on ventilator, not getting TV, HR increasing to 130s, BP down to 50s systolic on arterial line. 1L NS bolus given wide open. levo and lisandra gtt quickly ordered and
hung at max rates. multiple doses of versed and fentanyl given in attempt to make pt synchronous w/ vent. pt RR remains in 40-50 range, continuously alarming on vent, not pulling TV, nimbex given. pt RR back at set rate of 20, pt cleaned and FMS
inserted for large amt of diarrhea. versed gtt increased, see flowsheet. keppra initiated for sz like activity. rapid EEG w/ Ceribell placed. seizure burden reading @ 0%. see MAR for all territory sales manager medical.
0545- continue increasing versed gtt per ICU NEIGHBORHOOD PLANNER, see flowsheet. ketamine gtt ordered. pt remains on fent/versed at this time. RR still high 20s/low 30s. HR 120s. BP stabilized and off all vasopressors. seizure burden remains @ 0%. care ongoing.
[2024-12-08] MEDS: KETALAR 100 MG IV ×2 (06:13→20:00)
[2024-12-08] MEDS: KCL 270 MEQ IV (06:14)
--- NOTE | 2024-12-08 06:23 | PTCARENOTE ---
"Ketamine started by primary RN at 0.1mg/kg/hr, dose based on pt's weight of 81.2kg and ketamine bag concentration of 200mg/100mL. EMAR did not prompt for co-signer, however independent double check was done and drug administration witnessed by Jaquan Whitmore"Dav TSAI."
[2024-12-08] MEDS: SUBLIMAZE 100 MCG IV ×3 (06:31→18:13)
[2024-12-08] MEDS: PROTONIX IV 40 MG IV (08:32)
[2024-12-08] MEDS: NSS (PRESERVATIVE FREE) 10 ML IV (08:33)
[2024-12-08] MEDS: THIAMINE INJECTION 100 MG IV (08:33)
[2024-12-08] MEDS: MIRALAX TUBE (08:33)
[2024-12-08] MEDS: LOW STRENGTH ASPIRIN 81 MG TUBE (08:34)
[2024-12-08] MEDS: HEPARIN 5000 UNITS SC ×2 (08:34→19:30)
--- NOTE | 2024-12-08 09:20 | PHA.VAN.FU ---
Vancomycin Assessment / Plan
- Assessment
Renal Function: Stable
WBC's are: Trending Down
In the past 24 hrs, patient has been: Febrile
Concomitant Antimicrobials: naficillin
- Assessment - Therapeutic Drug Monitoring
Random Level: 17.6 - drawn ~16.5H after previous dose of 1250mg
- Dosing Plan
Dosing by Level: Re-dose today (Vanc 1000mg)
- Monitoring Plan
Random Level: 12/09 599
- Follow Up
Pharmacy will continue to follow.
Vancomycin Follow UP
- -
Patient Age: 39
Patient Sex: Male
Vancomycin Day #: 6
Indication: Bacteremia
Requesting Provider: Dr. Fofana / Teto
Pertinent Antimicrobial Allergies:
NKDA
Height / Weight:
Height 6 ft 2 in
Actual Weight 84 kg
IBW in k.2
Pertinent Past Medical History: IV JOCELIN
- Vital Signs / Lab Results
Temp Pulse Resp BP Pulse Ox
101.7 F H 124 28 146/100 99
12/08/24 09:00 12/08/24 09:00 12/08/24 09:00 12/08/24 09:00 12/08/24 09:00
Lab Results - Hematology
12/05/24 12/06/24 12/07/24
16:46 03:38 03:34
WBC 20.5 H 17.1 H 22.4 H
Band Neutrophils 1 D
12/08/24
03:02
WBC 20.9 H
Band Neutrophils
Lab Results - Chemistry
12/05/24 12/06/24 12/06/24
16:46 03:38 06:00
BUN 60 H 60 H Cancelled
Creatinine 1.6 H 1.5 H Cancelled
Estimated Creat Clear 71 76 Cancelled
Albumin 2.5 L
0712/07/24 12/08/24
23:48 03:34 03:02
BUN 66 H 62 H 64 H
Creatinine 1.8 H 1.8 H 1.9 H
Estimated Creat Clear 65 65 61
Albumin 2.5 L 2.6 L
12/05/24
16:46
Lactic Acid 1.3
Microbiology Results
12/05/24 16:46 Blood Culture - Preliminary
Blood/Venous Staphylococcus aureus
Gram Stain - Preliminary
12/05/24 13:38 Blood Culture - Preliminary
Blood/Venous Staph aureus MRSA
Gram Stain - Preliminary
12/07/24 04:06 Blood Culture - Preliminary
Blood/Venous Positive culture in progress
Gram Stain - Preliminary
12/03/24 08:20 Blood Culture - Final
Blood/Venous S aureus-Methicillin Sensitive
Gram Stain - Final
12/03/24 09:21 Blood Culture - Final
Blood/Venous S aureus-Methicillin Sensitive
Gram Stain - Final
Therapeutic Drug Monitoring
Random Vancomycin 17.6 ug/ml 12/08/24 03:02
--- NOTE | 2024-12-08 09:24 | W.PN.CARDCBS ---
Today's Communication / Plan
-
Remains febrile with staff aureus endocarditis. He has a large vegetation in his mitral annulus with mild MR.
He continues to likely have symptoms of withdrawal with seizures overnight. Continue supportive care and ventilatory management.
Continue antibiotics.
proBNP is over 10,000. Will start Lasix 40 mg IV daily.
He is now hypernatremic. Would adjust free water in his feeding tubes.
At this point he is not a surgical candidate. If he does recover, would be reasonable to consider.
Long-term prognosis is poor.
Would repeat a transthoracic echo next week to reassess his mitral valve.
Impression / Plan
-
Primary Clinical Trial Associate: none prior to admission
Assessment:
Presentation with change in mental status
Sepsis
Septic emboli by brain MRI
MSSA bacteremia
Pancreatitis
TME
VDRF
LE
Rhabdomyolysis
Elevated LFTs
Thrombocytopenia
IVDA since age 19
Vaping
ECHO 12/04/24: EF 55 to 60%, no regional wall motion abnormalities noted, no evidence of vegetation seen
KELI 12/07/24: EF 65%, large endocarditis/vegetations attached to mitral annulus measuring ~1x1cm each, mild MR, no Tricuspid or aortic vegetations
Plan:
-Remains critically ill and results of transesophageal echo reviewed with family, reference assistant, and CT surgery. He has large vegetations attached to his mitral annulus consistent with endocarditis.
-Continue broad-spectrum antibiotics. Remains unclear whether this is MSSA or MRSA. Will defer to infectious disease. He will need long-term antibiotics.
-At this point he remains critically ill with multiorgan system failure including renal failure, septic emboli to the brain and vent dependent respiratory failure. He is too sick for CT surgery intervention at this time.
-If he recovers, based on the size of his lesion, staff aureus, and known septic emboli he will be reasonable to consider fixing his mitral valve surgically.
-proBNP is over 10,000. Will diurese with IV Lasix 40 mg IV daily. With staff aureus bacteremia and significant vegetation would repeat an echo next week to reassess his mitral valve and endovascular lesions.
-He continues to be febrile and cultures remain positive.
-Lipase remains abnormal at about 600. His triglycerides are improved and down to 414. Will continue to avoid any sort of carbohydrate in his feeding supplementation.
-Continue to avoid meds which will increase triglycerides as patient also has low-level pancreatitis.
- UDS positive for cocaine, fentanyl. discussed importance moving forward of illicit drug cessation/avoidance with family.
-Platelet count overall stable at 125,000
- will follow
CC time 32 min
Progress Note - Clinical Trial Associate
Subjective
Date of Service: December 08, 2024
Events overnight reviewed. Patient with seizures likely. Still remains on the ventilator with fevers/positive blood cx
Objective
Labs:
12/08/24 03:02
12/08/24 03:02
Labs
Hgb 10.8 g/dL (13.0-18.0) L 12/08/24 03:02
Hct 30.4 % (39.0-52.0) L 12/08/24 03:02
Plt Count 125 10^3/uL (130-400) L 12/08/24 03:02
Sodium 150 mmol/L (135-145) H 12/08/24 03:02
Potassium 3.3 mmol/L (3.5-5.1) L 12/08/24 03:02
BUN 64 mg/dl (9-20) H 12/08/24 03:02
Creatinine 1.9 mg/dL (0.7-1.3) H 12/08/24 03:02
Glucose 149 mg/dl (70-99) H 12/08/24 03:02
Vital Signs and I&O:
Vital Signs
Temp Pulse Resp BP Pulse Ox
101.7 F H 124 28 146/100 99
12/08/24 09:00 12/08/24 09:00 12/08/24 09:00 12/08/24 09:00 12/08/24 09:00
Vital Signs
Temp Pulse Resp BP Pulse Ox
101.7 F H 124 28 146/100 99
12/08/24 09:00 12/08/24 09:00 12/08/24 09:00 12/08/24 09:00 12/08/24 09:00
Intake & Output
12/06/24 12/07/24 12/08/24 12/09/24
06:59 06:59 06:59 06:59
Intake Total 3515.1 / 3591.1 3101.5 / 3176.5 4276 / 4425.6 556.8 / 556.8
Output Total 2150 / 2165 4570 / 4820 3315 / 3400 355 / 355
Balance 1365.1 / 1426.1 -1468.5 / -1643.5 961 / 1025.6 201.8 / 201.8
Physical Exam
Physical Exam
GEN: on vent, tremulous
HEENT: supple, anicteric, mmm, ET tube
LUNGS: CTA, no wheezes/rales
CV: Reg, tachym S1/S2, 1/6 syst LSB, S3+
ABD: soft, BS+, NT/ND
EXT: +1 edema
NEURO: Gross non-focal
SKIN: No rash
--- NOTE | 2024-12-08 09:38 | W.PN.ID1 ---
Date of Service
Date of Service: December 08, 2024
Today's Communication
Continue Vancomycin and nafcillin.
Assessment / Plan
# Complicated sustained Staphylococcus aureus bacteremia
# Mitral valve infected endocarditis with large vegetation
# Multiple embolic CVA
# New Seizure
# Fever persists
# Leukocytosis persists
# Intubated 12/03
# LE, stable
# Polysubstance abuse (cocaine and fentanyl skin/muscle popper)
# hx MRSA wound abscesses (2010)
# hx of Viridans strep bacteremia (2010)
- Patient is critically ill and not surgical candidate at this time, per CTS.
- Repeat blood cultures still positive.
- Repeat blood cultures until clear
- Discussed with microbiology. There is discrepancy between blood cx PCR identified as MRSA and phenotype - identified as MSSA
Further work-up in progress.
- Continue IV Vancomycin and Nafcillin 2g IV q4h for now.
Monitor renal function and LFT's while on nafcillin.
- Trend wbc, temps.
- Prognosis poor.
Chief Complaint
-: Clinical Sepsis, Bacteremia and Other (embolic CVA)
Subjective / Review of Systems
On vent, unresponsive, tremors
Vital Signs / Physical Exam
Vital Signs
Vital Signs
Temp Pulse Resp BP Pulse Ox
101.7 F H 124 28 146/100 99
12/08/24 09:00 12/08/24 09:00 12/08/24 09:00 12/08/24 09:00 12/08/24 09:00
Physical Exam
Constitutional: Acutely Ill
Oropharyngeal: Poor Dention
Cardiovascular: S1/S2 and Other (tachycardic)
Pulmonary: Clear (anteriorly)
Gastrointestinal: Soft, Non Tender and Non Distended
Genito-Urinary: Balderas and Clear Urine
Extremities: Edema
Neurological: Other (sedated)
Objective Data
Lab Data
Lab Results
12/08/24 03:02
Estimated Creat Clear 61 ml/min 12/08/24 03:02
Lactic Acid 1.3 mmol/L (0.7-2.0) 12/05/24 16:46
Total Bilirubin 1.8 mg/dl (0.2-1.3) H D 12/08/24 03:02
AST 45 U/L (17-59) 12/08/24 03:02
ALT 36 U/L (0-50) 12/08/24 03:02
Alkaline Phosphatase 96 U/L (38-126) 12/08/24 03:02
Amylase 139 U/L (30-110) H 12/05/24 04:04
Most recent labs reviewed.
Micro Results:
12/05/24 16:46 Blood Culture - Preliminary
Blood/Venous Staphylococcus aureus
Gram Stain - Preliminary
12/05/24 13:38 Blood Culture - Preliminary
Blood/Venous Staph aureus MRSA
Gram Stain - Preliminary
12/07/24 04:06 Blood Culture - Preliminary
Blood/Venous Positive culture in progress
Gram Stain - Preliminary
12/08/24 03:02 Blood Culture - Pending
Blood/Venous
12/03/24 08:20 Blood Culture - Final
Blood/Venous S aureus-Methicillin Sensitive
Gram Stain - Final
12/03/24 09:21 Blood Culture - Final
Blood/Venous S aureus-Methicillin Sensitive
Gram Stain - Final
12/03/24 08:38 Urine Culture - Final
Urine S aureus-Methicillin Sensitive
12/03/24 18:44 MRSA Screen - Final
Nose No Methicillin Resistant Staphylococcus aureus isolated.
12/05/24 CT a/p: Mild inflammatory change adjacent to the body and tail of the pancreas, suggestive of mild pancreatitis. No peripancreatic fluid collection appreciated. No evidence of intestinal obstruction or bowel inflammatory process. Study is
slightly limited by lack of intravenous or oral contrast. Gallbladder sludge without evidence of acute cholecystitis. No radiopaque gallstones are seen.
12/04/24 MRI brain: Numerous scattered acute infarctions in a distribution that is most suggestive of embolic phenomenon in the setting of known IV drug abuse. Multiple small microhemorrhages are also demonstrated.
12/03/24 CXR: Clear lungs.
12/03/[address]: Possible cortical petechial hemorrhages in the left frontal lobe and left occipital lobe. Possible small old infarct, periventricular small vessel ischemic disease or edema due to underlying mass in the left occipital lobe.
--- NOTE | 2024-12-08 10:00 | PTCARENOTE ---
Rec'd care of patient at 0700. Patient intubated and sedated. No purposeful movement. Does not follow commands. Withdrawals from painful stimuli. Cough, gag, corneal reflexes intact. Pupils equal and reactive, +4mm. Tremulous throughout body.
Fentanyl/Versed/Ketamine infusing through [facility] PICC for sedation (see worklist). Right midline capped. ST on tele. Rate in the 110-120's. +2 generalized anasarca. +3 edema in b/l hand; elevated on pillows. B/l hands mottled; not new. Palpable pulses.
#8.0 ett, positioned 26cm @ the lip. Vent settings: A/C 20/500/8/40%. Pulse ox 99-100%. Lung sounds coarse/diminished throughout. Hypo BS. [place] sump to LIS. Plan to start trickle feeds today. Incontinent of liquid stool; FMS in place. Balderas in
place for critical I/O. Cristal with sediment. Core temp 101. Cooling blanket placed back on. See worklist for full assessment and care.
[2024-12-08] MEDS: TYLENOL ORAL SOLUTION 650 MG TUBE ×2 (10:01→20:12)
[2024-12-08] MEDS: VANCOCIN 200 IV (10:44)
[2024-12-08] MEDS: LASIX 40 MG IV ×2 (11:01→17:20)
[2024-12-08] MEDS: SEROQUEL 50 MG PO (11:02)
--- NOTE | 2024-12-08 11:30 | W.PN.INTV ---
Today's Communication / Plan
Recommendations
- Lasix 40 mg IV daily
- Increase D5 W infusion to 75 mL/h, serial labs and adjust accordingly
- Place Keofeed, initiate postpyloric trickle feeding at 10 to 15 mL/h max along with free water, gradually ramp up with history of pancreatitis
- Add Seroquel 50 mg in the morning and 100 mg at night
- Continue EEG monitoring, hold off IV Keppra for now
Assessment
-
39-year-old male with history of polysubstance abuse, presents with 4 days of fevers, progressive 2 days of tremors, nausea/emesis on day of admission found to have confusion, suspected sepsis, multiple brain lesions, transaminitis, rhabdomyolysis.
Patient treated with IV antibiotics, IV fluids, withdrawal protocol with Dilaudid, buprenorphine in the ED. Also found to have prolonged QT. Admitted to ICU for further management. Required intubation and mechanical ventilation starting 12/03.
Conditions present prior to admission
History of MRSA bacteremia 2010
Right forearm abscess
Right mandibular fracture 2010
Status post closed reduction
12/08 overview: Patient overnight developed significant ventilator asynchrony, agitation, seizure-like activity/withdrawal symptoms, briefly required to be on 2 pressors, additional sedation, was initiated on ketamine and required 1 dose of
paralytics. Since then patient has been weaned off pressors. Currently mechanical ventilation 500 by 20 x 40% x 8, ABG 7.40 /. Current infusions ketamine at 0.1, Versed at 8, fentanyl at 200, D5W at 50. Not requiring any pressors
currently.
Assessment and plan
#1. Polysubstance drug use with severe sepsis, MSSA/MRSA bacteremia and mitral valve endocarditis
- Suspect embolic intracranial cortical petechial hemorrhages, also developing Janeway lesions on the palms
- Lactic acid as high as 6.5, serial lactate down to 2.0, s/p IV hydration, intubation and mechanical ventilation
- ID service on case, currently on IV nafcillin and IV vancomycin, some diagnostic uncertainty about MSSA versus MRSA versus both
- CT surgery on case, patient not felt to be currently a candidate for surgical intervention due to critical illness.
- Continues to be febrile and positive blood cultures
#2. Acute toxic metabolic encephalopathy, ?seizures
- Related to severe sepsis, lactic acidosis, MRSA bacteremia as well as intracranial petechial hemorrhages
- Petechial hemorrhages confirmed on MRI. Aspirin 81 mg started per neurology service
- Patient required intubation on 12/03 due to worsening encephalopathy
- Neurology on case
- Episodes of tremulousness with ventilator asynchrony, tachypnea and desaturation. Concerning for seizure, however both cerebellar and subsequent EEG negative. Neurology on case. Presentation more likely related to withdrawal.
- Follow-up CT head unchanged
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 Portable bedside EEG with Cerribell was started, no seizure activity noted, additional dosing held.
- Continue Versed, fentanyl infusions, continue ketamine and titrate as needed. Increase Seroquel to 50 mg in the morning and 100 mg nightly. Continue clonidine and tizanidine as ordered.
#3. Lactic acidosis
- Due to MSSA bacteremia and severe sepsis
- Improving with IV hydration and intubation with mechanical ventilation
#4. Acute renal insufficiency, hypernatremia
- Nonoliguric, creatinine stable to improving.
- Continue to stay off IV fluids, give another Lasix 40 mg x 1 today.
- Increase D5W to 75 mL/h, also start tube feeding with free water, monitor electrolytes
- Good urine output, 2.5 L over last 24 hours, overall however positive fluid balance
#5. Acute transaminitis and Acute rhabdomyolysis
- In the setting of severe sepsis, polysubstance drug use
- IV fluids stopped as patient developing anasarca, diuresis initiated
#6. Polysubstance abuse
- Continue clonidine as ordered, buprenorphine protocol when able to take p.o.
- Continue empiric thiamine replacement
- Continue fentanyl infusion, added Versed drip in view of difficult to control intermittent ventilator asynchrony, suspect withdrawal symptoms
- Titrate Seroquel up, continue clonidine and tizanidine
#7. QT prolongation
- Suspect in the setting of electrolyte imbalance
- Follow-up EKG shows improving QTc
- Continue to replace potassium as needed
- Follow-up K, mag and phosphorus levels closely
#8. Vomiting, Acute pancreatitis
- Elevated lipase noted
- Plan to start postpyloric trickle tube feeding 12/08
#9.Elevated Triglycerides
- Propofol infusion discontinued on 12/05, monitor for now
- Follow-up levels improving
DVT prophylaxis, Continue subcu heparin. GI prophylaxis with IV PPI.
Updated patient's family at bedside.
Critical Care time 42 mins -- The patient is admitted for acute critical illness for the treatment of vital organ failure and/or prevention of further life-threatening conditions. Total care includes time spent in review of history, physical exam,
medications, hemodynamic/ventilator parameters, laboratory data, imaging and discussion with house staff, pharmacy, respiratory therapy, outbound sales representative, and nursing.
Subjective Dataa
Subjective Data
Date of Service:
Date of Service: December 08, 2024
Subjective:
Patient continues to be intubated, mechanically ventilated and sedated.
Review of Systems
General: Unobtainable - Sedation
Objective Data
Data Reviewed
Vital Signs / I&O / Oxygen:
Vital Signs
Temp Pulse Resp BP Pulse Ox
100.7 F H 114 29 147/79 100
12/08/24 11:00 12/08/24 11:01 12/08/24 11:00 12/08/24 11:01 12/08/24 11:00
Intake and Output
12/07/24 12/08/24 12/09/24
06:59 06:59 06:59
Intake Total 3101.5 / 3176.5 4276 / 4425.6 1042.5 / 1042.5
Output Total 4570 / 4820 3315 / 3400 610 / 610
Balance -1468.5 / -1643.5 961 / 1025.6 432.5 / 432.5
SaO2 [A/C] 100
SaO2 100
Physical Exam
General: Other (Intermittent asynchrony with vent)
HEENT: Normocephalic
Cardiovascular: S1-S2
Respiratory: Clear and Non-Labored Respirations
GI: Soft and Distended
Neurology: Other (Sedated)
Skin: Warm
Labs/Micro/Reports
Lab Data
12/08/24 03:02
Laboratory Results
12/08/24
03:02
pH 7.47 H
pCO2 37
pO2 147 H
HCO3 26.9
O2 Delivery Level 40%
Microbiology
12/05/24 16:46 Blood/Venous Blood Culture - Preliminary
Staphylococcus aureus
12/05/24 16:46 Blood/Venous Gram Stain - Preliminary
12/05/24 13:38 Blood/Venous Blood Culture - Preliminary
Staph aureus MRSA
12/05/24 13:38 Blood/Venous Gram Stain - Preliminary
12/07/24 04:06 Blood/Venous Blood Culture - Preliminary
Positive culture in progress
12/07/24 04:06 Blood/Venous Gram Stain - Preliminary
12/03/24 08:20 Blood/Venous Blood Culture - Final
S aureus-Methicillin Sensitive
12/03/24 08:20 Blood/Venous Gram Stain - Final
12/03/24 09:21 Blood/Venous Blood Culture - Final
S aureus-Methicillin Sensitive
12/03/24 09:21 Blood/Venous Gram Stain - Final
12/03/24 08:38 Urine Urine Culture - Final
S aureus-Methicillin Sensitive
12/03/24 18:44 Nose MRSA Screen - Final
No Methicillin Resistant Staphylococcus aureus isolated.
--- NOTE | 2024-12-08 12:49 | PTCARENOTE ---
Systems reviewed. Patient requiring increased sedation throughout shift. Tremors throughout body slightly improved from prior assessment. ST on tele. Rate down to low 100's. Patient tachypneic and found to be clamped down on bite block. Versed bolus
administered and ett repositioned with RT. 40mg IV Lasix administered as ordered. Urine output increased. Afebrile s/p Tylenol and cooling blanket. No other changes.
[2024-12-08] MEDS: D5W 1000 IV (13:08)
--- NOTE | 2024-12-08 15:53 | CM ---
Intubated, IV/AB, IV/Lasix, Poor prognosis. Discharge POC: TBD based on medical progression.
--- NOTE | 2024-12-08 16:36 | W.PN.HOSP.TC ---
Today's Communication/Plan
-
Assessment / Plan
Assessment / Plan
General: Acutely ill-appearing, intubated and sedated
HEENT: NormoCephalic, ETT in NGT in place, pupils equal with conjugate gaze
Respiratory: Mechanical breath sounds bilaterally
Cardiac: S1/S2 and Regular Rhythm; No Rub or Gallop
GI: Soft, Non Tender, Non Distended and Normal Bowel Sounds, FMS in place
Musculoskeletal: Bilateral upper extremity edema, no deformity
Skin: Warm and dry, multiple scattered annular scars on bilateral legs and feet
: Balderas in place draining clear yellow urine
Neuro: Sedated, intermittent bilateral lower extremity tremors
Psych: Unable to assess
Mr. Alonzo is a 39-year-old male with a medical history of polysubstance abuse (skin popping with fentanyl) who was admitted after presentation with altered mental status. He was brought in by his parents with tremors and confusion. His mental
status abruptly declined and he was intubated for airway protection. CT brain showed possible left occipital lobe mass. His blood cultures are positive for MRSA. He is currently being managed in the ICU for treatment of encephalopathy and
bacteremia.
Septic shock secondary to MRSA/MSSA bacteremia:
- Episode of ventilator asynchrony and hypotension overnight, added vasopressors, increased Versed drip and added ketamine
- Due to endocarditis secondary to injection drug use, diagnostic uncertainty as to whether patient is infected with MRSA/MSSA or both
- Continues to be febrile with Tmax 102 �F past 24 hours, leukocytosis remains elevated around 20,000, repeat cultures still positive
- Transesophageal echocardiogram 12/06 showed large mitral annulus vegetation
- No current plans for cardiothoracic surgery due to critical illness
- ID following, continue antibiotics with vancomycin and nafcillin
Acute toxic metabolic encephalopathy:
- Added ketamine and increased Versed, continuing fentanyl, given a dose of Keppra overnight
- Continue EEG monitoring
- Encephalopathy likely multifactorial due to bacteremia, opiate withdrawal, and and suspected septic emboli to brain
- MRI brain consistent with suspicion for septic emboli, repeat CT brain shows stable findings
- Discussed severity of patient's condition with parents who are at bedside this morning, discussed the possibility that he could from his current illness
- Currently mechanically ventilated for airway protection, vent management per rip/mould operator
- Neurology following, started Seroquel with dose increased to 50 mg daily and 100 mg at night
- Continue sedation with fentanyl and Versed drips for now
LE:
- Creatinine 1.9 today, baseline appears less than 1
- Suspect related to rhabdomyolysis which is improving
- Discontinued LR as patient appears to be becoming volume overloaded, additional dose of IV Lasix given, switched fluids to D5W for hypernatremia
Hypokalemia:
- Mild, replete
- Monitor
Rhabdomyolysis:
- Continue IV fluids
Elevated LFTs:
- Suspect due to severe sepsis
- Improving, monitor with treatment as above
Pancreatitis:
- Elevated lipase, CT imaging with evidence of pancreatic inflammation
- Triglycerides elevated but improving, discontinued propofol for sedation, trend triglyceride levels
- Currently trialing trickle feeds
Lactic acidosis:
- Resolved, continue to monitor
Polysubstance abuse:
- Long history of injection drug abuse
- Continue scheduled clonidine and tizanidine, Versed and fentanyl drip, added ketamine drip
- Can initiate buprenorphine treatment when tolerating p.o.
DVT prophylaxis: SCDs
CODE STATUS: Full code
Total time spent on today's encounter was 45 minutes
Anticipated Discharge: > 48 hours
Subjective/Interval History
-
Date of Service: December 08, 2024
Patient was seen and examined at bedside this morning. Remains critically ill. Parents were also at bedside. We discussed the severity of his condition and possibility of due to his current medical problems.
Objective Data
-
Labs:
Laboratory Results
12/08/24
16:25
Sodium Pending
Potassium Pending
Chloride Pending
Carbon Dioxide Pending
BUN Pending
Creatinine Pending
Glucose Pending
Calcium Pending
Vital Signs:
Vital Signs
Temp Pulse Resp BP Pulse Ox
99.5 F 108 20 145/83 100
12/08/24 15:05 12/08/24 16:00 12/08/24 16:00 12/08/24 11:59 12/08/24 16:00
I&O
12/07/24 12/08/24 12/09/24
06:59 06:59 06:59
Intake Total 3101.5 / 3176.5 4276 / 4425.6 1974.0 / 1974.0
Output Total 4570 / 4820 3315 / 3400 2290 / 2290
Balance -1468.5 / -1643.5 961 / 1025.6 -316.0 / -316.0
Review of Systems
-
Unable to obtain full review of systems at this time due to: Patient Intubation
Physical Exam
-
General: Intubated
[2024-12-08 16:55] LABS: Blood Urea Nitrogen 57 mg/dl (9-20); Calcium 7.5 mg/dl (8.4-10.2); Carbon Dioxide 27 mmol/L (22-30); Chloride 116 mmol/L (98-107); Estimated Creatinine Clearance 69 ml/min; Glucose 122 mg/dl (70-99); Potassium 3.4 mmol/L (3.5-5.1); Sodium 148 mmol/L (135-145); eGFR 52.59
--- NOTE | 2024-12-08 17:06 | PTCARENOTE ---
Systems reviewed. Vitals stable. Afebrile. Trickle feeds initiated. Repeat BMP sent. Potassium repletion and additional 40mg IV Lasix ordered. No other changes.
[2024-12-08] MEDS: KCL ELIXIR 40 MEQ TUBE (17:20)
--- NOTE | 2024-12-08 20:00 | PTCARENOTE ---
Received pt. at 1900. Pt. currently in bed. Intubated and sedated. Heart rhythm sinus tachy. Blood pressure normotensive. Ventilator settings verified. Lungs sound coarse. Tube feeds running via NG tube. Abdomen soft and round. Balderas catheter in
place, draining without issue. Skin as documented. Vital signs stable at this time.
[2024-12-08] MEDS: SEROQUEL 100 MG TUBE (21:47)
[2024-12-09] VITALS (7 sets, daily range): BP systolic 123–152; BP diastolic 87–104; BMI 23.5
--- NOTE | 2024-12-09 | PTCARENOTE ---
Pt. having episodes of hypotension. Levophed gtt restarted. Assessment unchanged otherwise. Remains sedated on ventilator. Vital signs stable at this time.
[2024-12-09] MEDS: VERSED 50 IV ×4 (02:14→20:08)
[2024-12-09] MEDS: SUBLIMAZE 100 IV ×5 (02:14→20:09)
[2024-12-09] MEDS: D5W 1000 IV ×2 (02:46→16:05)
--- NOTE | 2024-12-09 04:00 | PTCARENOTE ---
Blood pressure improved. Levophed infusion is off. AM labs drawn. Vital signs stable at this time.
[2024-12-09] MEDS: REFRESH CELLUVISC GEL 1 DROPS OPHTH ×2 (04:21→14:49)
[2024-12-09] MEDS: NAFCIL 108 MG IV ×6 (04:21→23:23)
[2024-12-09 04:22] LABS: Hematocrit 28.2 % (39.0-52.0); Hemoglobin 9.8 g/dL (13.0-18.0); Mean Corp Hgb Conc. 34.8 g/dL (33.0-37.0); Mean Corpuscular Volume 84.9 fL (80.0-94.0); Platelet Count 164 10^3/uL (130-400); Red Cell Dist. Width 13.5 % (11.5-14.5)
[2024-12-09] MEDS: TYLENOL ORAL SOLUTION 650 MG TUBE ×3 (04:24→16:43)
[2024-12-09 04:29] LABS: Blood Urea Nitrogen 58 mg/dl (9-20); Calcium 7.9 mg/dl (8.4-10.2); Carbon Dioxide 28 mmol/L (22-30); Chloride 117 mmol/L (98-107); Estimated Creatinine Clearance 73 ml/min; Glucose 124 mg/dl (70-99); Magnesium 2.0 mg/dl (1.6-2.3); Potassium 3.8 mmol/L (3.5-5.1); Sodium 149 mmol/L (135-145); Triglycerides 379 mg/dl (10-149); eGFR 56.56
[2024-12-09] MEDS: ZANAFLEX 2 MG TUBE ×4 (05:25→23:23)
[2024-12-09] MEDS: CATAPRES 0.2 MG TUBE ×4 (05:25→23:23)
[2024-12-09] MEDS: KETALAR 100 MG IV ×2 (06:05→16:38)
[2024-12-09] MEDS: MIRALAX 17 GRAMS TUBE (07:34)
[2024-12-09] MEDS: LASIX 40 MG IV (07:35)
[2024-12-09] MEDS: THIAMINE INJECTION 100 MG IV (07:35)
[2024-12-09] MEDS: HEPARIN 5000 UNITS SC ×2 (07:36→19:08)
[2024-12-09] MEDS: LOW STRENGTH ASPIRIN 81 MG TUBE (07:36)
[2024-12-09] MEDS: PROTONIX IV 40 MG IV (07:37)
[2024-12-09] MEDS: SEROQUEL 50 MG PO (07:37)
[2024-12-09] MEDS: NSS (PRESERVATIVE FREE) 10 ML IV (07:37)
[2024-12-09] MEDS: VERSED 5 MG IV (07:38)
--- NOTE | 2024-12-09 08:24 | W.PN.CARDCBS ---
Today's Communication / Plan
-
Continue IV Lasix 40 mg daily, fluid balance is 150 cc negative, weight is down 2 pounds overnight, creatinine stable at 1.6 (actually slightly improved over the past 3 days from 1.9)
There is only mild mitral regurgitation on echocardiogram from December 07, 2024
However, given ongoing fever/bacteremia and endocarditis we will repeat an echo next week to reassess his mitral valve and endovascular lesions.
Impression / Plan
-
Primary Maintenance Data Analyst: none prior to admission
Assessment:
Presentation with change in mental status
Sepsis
Septic emboli by brain MRI
MSSA bacteremia
Pancreatitis
TME
VDRF
LE
Rhabdomyolysis
Elevated LFTs
Thrombocytopenia
IVDA since age 19
Vaping
ECHO 12/04/24: EF 55 to 60%, no regional wall motion abnormalities noted, no evidence of vegetation seen
KELI 12/07/24: EF 65%, large endocarditis/vegetations attached to mitral annulus measuring ~1x1cm each, mild MR, no Tricuspid or aortic vegetations
Plan:
Remains critically ill with multisystem organ failure.
He has a history of polysubstance abuse including IV drug abuse.
He has septic shock with blood cultures with complicated findings and still a question of whether it is MRSA or MSSA
He has mitral valve infective endocarditis with fevers, septic shock, large mitral valve vegetations (mitral regurgitation at most recent imaging on 12/07/2024 is mild), multiple embolic CVAs, respiratory failure, seizures, acute kidney injury
He is not a CT surgical candidate at present
He is volume overloaded (HFpEF)
Continue IV Lasix 40 mg daily, fluid balance is 150 cc negative, weight is down 2 pounds overnight, creatinine stable at 1.6 (actually slightly improved over the past 3 days from 1.9)
There is only mild mitral regurgitation on echocardiogram from December 07, 2024
However, given ongoing fever/bacteremia and endocarditis we will repeat an echo next week to reassess his mitral valve and endovascular lesions.
Continue broad-spectrum antibiotics.
Remains unclear whether this is MSSA or MRSA. Defer to infectious disease. He will need long-term antibiotics.
Continue to avoid meds which will increase triglycerides as patient also has low-level pancreatitis.
CC time 31 min
Progress Note - Maintenance Data Analyst
Subjective
Date of Service: December 09, 2024
Intubated and sedated
Objective
Labs:
12/09/24 03:54
12/09/24 03:54
Labs
Hgb 9.8 g/dL (13.0-18.0) L 12/09/24 03:54
Hct 28.2 % (39.0-52.0) L 12/09/24 03:54
Plt Count 164 10^3/uL (130-400) D 12/09/24 03:54
Sodium 149 mmol/L (135-145) H 12/09/24 03:54
Potassium 3.8 mmol/L (3.5-5.1) 12/09/24 03:54
BUN 58 mg/dl (9-20) H 12/09/24 03:54
Creatinine 1.6 mg/dL (0.7-1.3) H 12/09/24 03:54
Glucose 124 mg/dl (70-99) H 12/09/24 03:54
Vital Signs and I&O:
Vital Signs
Temp Pulse Resp BP Pulse Ox
100.6 F H 108 22 153/84 97
12/09/24 08:00 12/09/24 07:35 12/09/24 06:00 12/09/24 07:35 12/09/24 08:00
Vital Signs
Temp Pulse Resp BP Pulse Ox
100.6 F H 108 22 153/84 97
12/09/24 08:00 12/09/24 07:35 12/09/24 06:00 12/09/24 07:35 12/09/24 08:00
Intake & Output
12/07/24 12/08/24 12/09/24 07
06:59 06:59 06:59 06:59
Intake Total 3101.5 / 3176.5 4276 / 4425.6 4565.9 / 4819.9 400 / 400
Output Total 4570 / 4820 3315 / 3400 4600 / 4700 200 / 200
Balance -1468.5 / -1643.5 961 / 1025.6 -34.1 / 119.9 200 / 200
Physical Exam
Physical Exam
Intubated and sedated
Regular rate and rhythm, mildly tachycardic, normal S1 and S2, no S3 or S4. There is a grade 1/6 apical holosystolic murmur no rub. PMI is normally placed.
Lungs clear anteriorly
Abdomen soft and nondistended
Extremities with trace pretibial edema bilaterally
--- NOTE | 2024-12-09 08:37 | PHA.VAN.FU ---
Vancomycin Assessment / Plan
- Assessment
Renal Function: SCR Decreasing
In the past 24 hrs, patient has been: Febrile
Concomitant Antimicrobials: NAFCILLIN
- Assessment - Therapeutic Drug Monitoring
Random Level: 16
- Dosing Plan
Dosing by Level: Re-dose today (1000MG)
- Monitoring Plan
Random Level: 12/10 IN AM
- Follow Up
Pharmacy will continue to follow.
Vancomycin Follow UP
- -
Patient Age: 39
Patient Sex: Male
Vancomycin Day #: 7
Indication: Bacteremia
Requesting Provider: Dr. Fofana / Teto
Pertinent Antimicrobial Allergies:
NKDA
Height / Weight:
Height 6 ft 2 in
Actual Weight 83.1 kg
IBW in k.2
Pertinent Past Medical History: IV JOCELIN
- Vital Signs / Lab Results
Temp Pulse Resp BP Pulse Ox
100.6 F H 109 24 150/95 97
12/09/24 08:29 12/09/24 08:29 12/09/24 08:29 12/09/24 08:29 12/09/24 08:29
Lab Results - Hematology
12/07/24 12/08/24 12/09/24
03:34 03:02 03:54
WBC 22.4 H 20.9 H 15.3 H
Lab Results - Chemistry
12/06/24 12/07/24 12/08/24
23:48 03:34 03:02
BUN 66 H 62 H 64 H
Creatinine 1.8 H 1.8 H 1.9 H
Estimated Creat Clear 65 65 61
Albumin 2.5 L 2.6 L
12/08/24 12/09/24
16:25 03:54
BUN 57 H 58 H
Creatinine 1.7 H 1.6 H
Estimated Creat Clear 69 73
Albumin
Microbiology Results
12/08/24 03:02 Blood Culture - Preliminary
Blood/Venous No Growth in 24 hours- Final report to follow
12/05/24 16:46 Blood Culture - Preliminary
Blood/Venous Staphylococcus aureus
Gram Stain - Preliminary
12/05/24 13:38 Blood Culture - Preliminary
Blood/Venous Staph aureus MRSA
Gram Stain - Preliminary
12/07/24 04:06 Blood Culture - Preliminary
Blood/Venous Positive culture in progress
Gram Stain - Preliminary
Therapeutic Drug Monitoring
Random Vancomycin 16.0 ug/ml 12/09/24 03:54
--- NOTE | 2024-12-09 08:39 | W.PN.ID1 ---
Date of Service
Date of Service: December 09, 2024
Today's Communication
Continue current antibiotics. Monitor blood cultures.
Assessment / Plan
# Complicated sustained Staphylococcus aureus bacteremia
# Mitral valve infected endocarditis with large vegetation
# Multiple embolic CVA
# New Seizure
# Fever; persists
# Leukocytosis; persists
# Intubated 12/03
# LE, stable
# Polysubstance abuse (cocaine and fentanyl skin/muscle popper)
# hx MRSA wound abscesses (2010)
# hx of Viridans strep bacteremia (2010)
- Patient remains critically ill in intensive care unit and not surgical candidate at this time, as per CTS.
- Repeat blood cultures still positive.
- Repeat blood cultures until clear
- Discussed with microbiology. There is discrepancy between blood cx PCR identified as MRSA and phenotype - identified as MSSA
Further work-up in progress.
- Continue IV Vancomycin and Nafcillin 2g IV q4h for now.
Monitor renal function and LFT's while on nafcillin.
- Trend wbc, temps.
- Overall prognosis appears poor given significant comorbidities.
Chief Complaint
-: Clinical Sepsis, Bacteremia and Other (embolic CVA)
Subjective / Review of Systems
Patient seen and examined. Vent dependent. Fevers ongoing.
Vital Signs / Physical Exam
Vital Signs
Vital Signs
Temp Pulse Resp BP Pulse Ox
100.6 F H 109 24 150/95 97
12/09/24 08:29 12/09/24 08:29 12/09/24 08:29 12/09/24 08:29 12/09/24 08:29
Physical Exam
Constitutional: Acutely Ill
Oropharyngeal: Poor Dention
Cardiovascular: S1/S2 and Other (tachycardic)
Pulmonary: Clear (anteriorly) and Other (ET tube in place to vent.)
Gastrointestinal: Soft, Non Tender and Non Distended
Genito-Urinary: Balderas and Clear Urine
Extremities: Edema, Splinter Hemorrhage (Fingers bilaterally) and Janeway Lesions (Fingers, soles of feet)
Neurological: Other (sedated although minimally arousable to voice.)
Objective Data
Lab Data
Lab Results
12/09/24 03:54
12/09/24 03:54
Estimated Creat Clear 73 ml/min 12/09/24 03:54
Lactic Acid 1.3 mmol/L (0.7-2.0) 12/05/24 16:46
Total Bilirubin 1.8 mg/dl (0.2-1.3) H D 12/08/24 03:02
AST 45 U/L (17-59) 12/08/24 03:02
ALT 36 U/L (0-50) 12/08/24 03:02
Alkaline Phosphatase 96 U/L (38-126) 12/08/24 03:02
Amylase 139 U/L (30-110) H 12/05/24 04:04
Most recent labs reviewed.
Micro Results:
12/09/24 03:54 Blood Culture - Pending
Blood/Venous
12/08/24 03:02 Blood Culture - Preliminary
Blood/Venous No Growth in 24 hours- Final report to follow
12/05/24 16:46 Blood Culture - Preliminary
Blood/Venous Staphylococcus aureus
Gram Stain - Preliminary
12/05/24 13:38 Blood Culture - Preliminary
Blood/Venous Staph aureus MRSA
Gram Stain - Preliminary
12/07/24 04:06 Blood Culture - Preliminary
Blood/Venous Positive culture in progress
Gram Stain - Preliminary
12/03/24 08:20 Blood Culture - Final
Blood/Venous S aureus-Methicillin Sensitive
Gram Stain - Final
12/03/24 09:21 Blood Culture - Final
Blood/Venous S aureus-Methicillin Sensitive
Gram Stain - Final
12/03/24 08:38 Urine Culture - Final
Urine S aureus-Methicillin Sensitive
12/03/24 18:44 MRSA Screen - Final
Nose No Methicillin Resistant Staphylococcus aureus isolated.
Imaging:
12/05/24 CT a/p: Mild inflammatory change adjacent to the body and tail of the pancreas, suggestive of mild pancreatitis. No peripancreatic fluid collection appreciated. No evidence of intestinal obstruction or bowel inflammatory process. Study is
slightly limited by lack of intravenous or oral contrast. Gallbladder sludge without evidence of acute cholecystitis. No radiopaque gallstones are seen.
12/04/24 MRI brain: Numerous scattered acute infarctions in a distribution that is most suggestive of embolic phenomenon in the setting of known IV drug abuse. Multiple small microhemorrhages are also demonstrated.
12/03/24 CXR: Clear lungs.
12/03/[address]: Possible cortical petechial hemorrhages in the left frontal lobe and left occipital lobe. Possible small old infarct, periventricular small vessel ischemic disease or edema due to underlying mass in the left occipital lobe.
[2024-12-09] MEDS: VANCOCIN 200 IV (08:43)
--- NOTE | 2024-12-09 09:34 | PTCARENOTE ---
Updated assessment, vital signs trends ongoing and as documented. Infectious disease team at bedside. Antibiotics and cultures as per team. Cardiology at bedside, following cv assessments. Continue ongoing updates with director international team this am. Will
update family when available and follow up plan of cares.
--- NOTE | 2024-12-09 10:47 | CM ---
Patient seen at bedside in ICU. Patient remails on ventilator and CM will continue to follow and monitor as needed. CM will follow for discharge planning needs.
PLan; TBD; Pending medical treatment plan
--- NOTE | 2024-12-09 12:41 | W.PN.INTV ---
Today's Communication / Plan
Recommendations
- Continue current infusions, continue tube feeding
- Follow-up chest x-ray in a.m.
Assessment
-
39-year-old male with history of polysubstance abuse, presents with 4 days of fevers, progressive 2 days of tremors, nausea/emesis on day of admission found to have confusion, suspected sepsis, multiple brain lesions, transaminitis, rhabdomyolysis.
Patient treated with IV antibiotics, IV fluids, withdrawal protocol with Dilaudid, buprenorphine in the ED. Also found to have prolonged QT. Admitted to ICU for further management. Required intubation and mechanical ventilation starting 12/03.
Conditions present prior to admission
History of MRSA bacteremia 2010
Right forearm abscess
Right mandibular fracture 2010
Status post closed reduction
12/09 overview: No further seizure-like activities. Current infusions Versed, ketamine, fentanyl drip, D5W at 75. Currently tube feeding ongoing at 10 mL/h along with 25 mL of water flushes. Fluid balance -511 mL. Current vent settings 500 by 20
x 40% x 5, ABG 7.47, 37, 147.
Assessment and plan
#1. Polysubstance drug use with severe sepsis, MSSA/MRSA bacteremia and mitral valve endocarditis
- Suspect embolic intracranial cortical petechial hemorrhages, also developing Janeway lesions on the palms
- Lactic acid as high as 6.5, serial lactate down to 2.0, s/p IV hydration, intubation and mechanical ventilation
- ID service on case, currently on IV nafcillin and IV vancomycin, some diagnostic uncertainty about MSSA versus MRSA versus both
- CT surgery on case, patient not felt to be currently a candidate for surgical intervention due to critical illness.
- Continues to be febrile and positive blood cultures
#2. Acute toxic metabolic encephalopathy, ?seizures
- Related to severe sepsis, lactic acidosis, MRSA bacteremia as well as intracranial petechial hemorrhages
- Petechial hemorrhages confirmed on MRI. Aspirin 81 mg started per neurology service
- Patient required intubation on 07/13 due to worsening encephalopathy
- Neurology on case
- Episodes of tremulousness with ventilator asynchrony, tachypnea and desaturation. Concerning for seizure, however both cerebellar and subsequent EEG negative. Neurology on case. Presentation more likely related to withdrawal.
- Follow-up CT head unchanged
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 Portable bedside EEG with Cerribell was started, no seizure activity noted, additional dosing held.
- Continue Versed, fentanyl infusions, continue ketamine and titrate as needed. Increased Seroquel to 50 mg in the morning and 100 mg nightly. Continue clonidine and tizanidine as ordered.
#3. Lactic acidosis
- Due to MSSA bacteremia and severe sepsis
- Improving with IV hydration and intubation with mechanical ventilation
#4. Acute renal insufficiency, hypernatremia
- Nonoliguric, creatinine stable to improving.
- Continue to stay off IV fluids, give another Lasix 40 mg x 1 today.
- Continue D5W to 75 mL/h, also continue tube feeding with free water, monitor electrolytes
- Good urine output, 2.5 L over last 24 hours, overall however positive fluid balance
#5. Acute transaminitis and Acute rhabdomyolysis
- In the setting of severe sepsis, polysubstance drug use
- IV fluids stopped as patient developing anasarca, diuresis initiated
#6. Polysubstance abuse
- Continue clonidine as ordered, buprenorphine protocol when able to take p.o.
- Continue empiric thiamine replacement
- Continue fentanyl infusion, added Versed drip in view of difficult to control intermittent ventilator asynchrony, suspect withdrawal symptoms
- Titrate Seroquel up, continue clonidine and tizanidine
#7. QT prolongation
- Suspect in the setting of electrolyte imbalance
- Follow-up EKG shows improving QTc
- Continue to replace potassium as needed
- Follow-up K, mag and phosphorus levels closely
#8. Vomiting, Acute pancreatitis
- Elevated lipase noted
- Trophic postpyloric feeding started 12/08, currently at 10 cc/h, if continues to tolerate will advance to 20 cc on 12/10
#9.Elevated Triglycerides
- Propofol infusion discontinued on 12/05, monitor for now
- Follow-up levels improving
DVT prophylaxis, Continue subcu heparin. GI prophylaxis with IV PPI.
Updated patient's father and mother at bedside.
Critical Care time 40 mins -- The patient is admitted for acute critical illness for the treatment of vital organ failure and/or prevention of further life-threatening conditions. Total care includes time spent in review of history, physical exam,
medications, hemodynamic/ventilator parameters, laboratory data, imaging and discussion with house staff, pharmacy, respiratory therapy, reimbursement analyst, and nursing.
Subjective Dataa
Subjective Data
Date of Service:
Date of Service: December 09, 2024
Subjective:
Continues to be intubated, mechanically ventilated and sedated
Review of Systems
General: Unobtainable - Sedation
Objective Data
Data Reviewed
Vital Signs / I&O / Oxygen:
Vital Signs
Temp Pulse Resp BP Pulse Ox
99.4 F 113 21 150/95 100
12/09/24 11:00 12/09/24 11:36 12/09/24 11:00 12/09/24 11:36 12/09/24 11:49
Intake and Output
12/08/24 12/09/24 12/10/24
06:59 06:59 06:59
Intake Total 4276 / 4425.6 4565.9 / 4819.9 903 / 903
Output Total 3315 / 3400 4600 / 4700 950 / 950
Balance 961 / 1025.6 -34.1 / 119.9 -47 / -47
SaO2 [A/C] 97
SaO2 100
Physical Exam
General: Other (Intermittent asynchrony with vent)
HEENT: Normocephalic
Cardiovascular: S1-S2
Respiratory: Clear and Non-Labored Respirations
GI: Soft and Distended
Neurology: Other (Sedated)
Skin: Warm
Labs/Micro/Reports
Lab Data
12/09/24 03:54
12/09/24 03:54
Microbiology
12/07/24 04:06 Blood/Venous Blood Culture - Preliminary
Positive culture in progress
12/07/24 04:06 Blood/Venous Gram Stain - Preliminary
12/05/24 13:38 Blood/Venous Blood Culture - Preliminary
Staph aureus MRSA
12/05/24 13:38 Blood/Venous Gram Stain - Preliminary
12/08/24 03:02 Blood/Venous Blood Culture - Preliminary
Positive culture in progress
12/08/24 03:02 Blood/Venous Gram Stain - Preliminary
12/05/24 16:46 Blood/Venous Blood Culture - Preliminary
Staphylococcus aureus
12/05/24 16:46 Blood/Venous Gram Stain - Preliminary
12/03/24 08:20 Blood/Venous Blood Culture - Final
S aureus-Methicillin Sensitive
12/03/24 08:20 Blood/Venous Gram Stain - Final
12/03/24 09:21 Blood/Venous Blood Culture - Final
S aureus-Methicillin Sensitive
12/03/24 09:21 Blood/Venous Gram Stain - Final
--- NOTE | 2024-12-09 14:01 | W.PN.HOSP.TC ---
Today's Communication/Plan
-
Assessment / Plan
Assessment / Plan
General: Acutely ill-appearing, intubated and sedated
HEENT: NormoCephalic, ETT in NGT in place, pupils equal
Respiratory: Mechanical breath sounds bilaterally
Cardiac: S1/S2 and Regular Rhythm; No Rub or Gallop
GI: Soft, Non Tender, Non Distended and Normal Bowel Sounds, FMS in place
Musculoskeletal: Bilateral upper extremity edema, no deformity
Skin: Warm and dry, multiple scattered annular scars on bilateral legs and feet
: Balderas in place draining clear yellow urine
Neuro: Sedated, no tremors
Psych: Unable to assess
Mr. Alonzo is a 39-year-old male with a medical history of polysubstance abuse (skin popping with fentanyl) who was admitted after presentation with altered mental status. He was brought in by his parents with tremors and confusion. His mental
status abruptly declined and he was intubated for airway protection. CT brain showed possible left occipital lobe mass. His blood cultures are positive for MRSA. He is currently being managed in the ICU for treatment of encephalopathy and
bacteremia.
Septic shock secondary to MRSA/MSSA bacteremia:
- Remains on vasopressors, Versed and ketamine drips
- Due to endocarditis secondary to injection drug use, diagnostic uncertainty as to whether patient is infected with MRSA/MSSA or both
- Fever curve and leukocytosis improving
- Transesophageal echocardiogram 12/06 showed large mitral annulus vegetation
- No current plans for cardiothoracic surgery due to critical illness
- ID following, continue antibiotics with vancomycin and nafcillin, repeat cultures still positive
Acute toxic metabolic encephalopathy:
- Remains on ketamine and Versed drips, Nimbex pushes as needed for ventilator asynchrony
- Continue EEG monitoring, no acute epileptiform activity captured
- Encephalopathy likely multifactorial due to bacteremia, opiate withdrawal, and and suspected septic emboli to brain
- MRI brain consistent with suspicion for septic emboli, repeat CT brain shows stable findings
- Continue mechanical ventilation for airway protection, vent management per clinical education coordinator
- Seroquel dose increased to 50 mg daily and 100 mg at night
- Will titrate down on opiate withdrawal medications as able
LE:
- Creatinine 1.6 today, baseline appears less than 1
- Suspect related to rhabdomyolysis and shock
- Continuing IV fluids with D5W
Hypokalemia:
- Mild, replete
- Monitor
Rhabdomyolysis:
- Continue IV fluids
Elevated LFTs:
- Suspect due to severe sepsis
- Improving, monitor with treatment as above
Pancreatitis:
- Elevated lipase, CT imaging with evidence of pancreatic inflammation
- Triglycerides elevated but improving, discontinued propofol for sedation, trend triglyceride levels
- Currently trialing trickle feeds
Lactic acidosis:
- Resolved, continue to monitor
Polysubstance abuse:
- Long history of injection drug abuse
- Titrate clonidine and tizanidine, Versed and ketamine drips as able
- Can initiate buprenorphine treatment when tolerating p.o.
DVT prophylaxis: SCDs
CODE STATUS: Full code
Total time spent on today's encounter was 45 minutes
Anticipated Discharge: > 48 hours
Subjective/Interval History
-
Date of Service: December 09, 2024
Patient was seen and examined at bedside this morning. Remains critically ill, intubated. Fever curve improving and leukocytosis improving.
Objective Data
-
Labs:
Laboratory Results
12/09/24
03:54
WBC 15.3 H
Hgb 9.8 L
Hct 28.2 L
Plt Count 164 D
Sodium 149 H
Potassium 3.8
Chloride 117 H
Carbon Dioxide 28
BUN 58 H
Creatinine 1.6 H
Glucose 124 H
Calcium 7.9 L
Vital Signs:
Vital Signs
Temp Pulse Resp BP Pulse Ox
99.6 F 108 22 150/95 97
12/09/24 13:17 12/09/24 13:17 12/09/24 13:17 12/09/24 13:17 12/09/24 13:17
I&O
12/08/24 12/09/24 12/10/24
06:59 06:59 06:59
Intake Total 4276 / 4425.6 4565.9 / 4819.9 1160 / 1160
Output Total 3315 / 3400 4600 / 4700 1500 / 1500
Balance 961 / 1025.6 -34.1 / 119.9 -340 / -340
Review of Systems
-
Unable to obtain full review of systems at this time due to: Patient Intubation
Physical Exam
-
General: Intubated
--- NOTE | 2024-12-09 14:17 | CHAP ---
Ottoniel's parents shared their pain, and also their acceptance of the situation, which is not in their control. The family has strong bonds. Emotional and spiritual support provided.
[2024-12-09] MEDS: SUBLIMAZE 100 MCG IV (14:49)
--- NOTE | 2024-12-09 15:43 | EEGC.RPT ---
Continuous EEG Report
Recording
Start Date of Data Reviewed: 12/08/24
Start Time of Data Reviewed: 04:27
End Date of Data Reviewed: 12/09/24
End Time of Data Reviewed: 02:56
Report
total recording time 22 hrs 8 mins
Clinical Background:�39 year old man with stroke, septic emboli, convulsions concerning for seizures/status epilepticus
Introduction: An emergent EEG was done using 27 Perryibell device in the ICU
Background: In the most alert state, the there is continuous generalized slowing with low amplitude polymorphic delta activity and some overriding beta activity. There is spontaneous variability and reactivity. Excessive muscle artifact across much
of the tracing.
Sleep: No sleep is seen.�
Focal/epileptiform: There were no focal or epileptiform discharges. No clinical or electrographic seizures occurred during this recording.
Impression: Moderate generalized cerebral dysfunction. no seizures or status epilepticus.
--- NOTE | 2024-12-09 16:49 | PTCARENOTE ---
Patient assessment unchanged thru shift. Vital sign trends ongoing. Sedation ongoing. Continue with supportive cares for patient and family. Follow up medications, antibiotics, and sedation protocols. Comfort measures, emotional support ongoing for
family and patient. Complete cg bath provided. Continue hourly or more frequent rounds.
--- NOTE | 2024-12-09 19:30 | PTCARENOTE ---
Received pt. at 1900. Pt. in bed. Ventilated and sedated. No signs of pain/discomfort. Febrile, cooling blanket on. Heart rhythm sinus tachy. Blood pressure normotensive. Ventilator settings verified. Lungs sound coarse. Incontinent of stool, FMS in
place. Balderas catheter in place, draining without issue. Skin as documented. Vital signs stable at this time.
[2024-12-09] MEDS: SEROQUEL 100 MG TUBE (22:27)
[2024-12-10] VITALS (8 sets, daily range): BP systolic 96–172; BP diastolic 48–100; BMI 23.4
--- NOTE | 2024-12-10 | PTCARENOTE ---
Pt. assessment unchanged. Remains ventilated and sedated. Vital signs stable at this time.
[2024-12-10] MEDS: SUBLIMAZE 100 IV ×4 (01:09→22:02)
[2024-12-10] MEDS: REFRESH CELLUVISC GEL 1 DROPS OPHTH ×2 (02:56→16:41)
[2024-12-10] MEDS: VERSED 50 IV ×3 (02:56→14:53)
[2024-12-10] MEDS: NAFCIL 108 MG IV ×5 (03:04→20:00)
[2024-12-10 03:24] LABS: Hematocrit 27.7 % (39.0-52.0); Hemoglobin 9.5 g/dL (13.0-18.0); Mean Corp Hgb Conc. 34.3 g/dL (33.0-37.0); Mean Corpuscular Volume 84.7 fL (80.0-94.0); Nucleated Red Blood Cells % 0 % (-); Platelet Count 231 10^3/uL (130-400); Red Cell Dist. Width 13.7 % (11.5-14.5)
[2024-12-10 03:39] LABS: ALT (SGPT) 27 U/L (0-50); AST (SGOT) 34 U/L (17-59); Albumin 2.6 g/dl (3.5-5.0); Alkaline Phosphatase 82 U/L (38-126); Blood Urea Nitrogen 51 mg/dl (9-20); Calcium 8.0 mg/dl (8.4-10.2); Carbon Dioxide 27 mmol/L (22-30); Chloride 116 mmol/L (98-107); Estimated Creatinine Clearance 78 ml/min; Glucose 122 mg/dl (70-99); Potassium 3.4 mmol/L (3.5-5.1); Sodium 148 mmol/L (135-145); Total Protein 6.1 g/dl (6.3-8.2); Triglycerides 335 mg/dl (10-149); eGFR > 60.00
[2024-12-10] MEDS: TYLENOL ORAL SOLUTION 650 MG TUBE ×4 (03:51→22:23)
[2024-12-10] MEDS: APRESOLINE 5 MG IV (03:52)
--- NOTE | 2024-12-10 04:00 | PTCARENOTE ---
Pt. assessment remains unchanged. AM labs drawn. Vital signs stable at this time.
[2024-12-10] MEDS: KCL 100 IV (04:13)
[2024-12-10] MEDS: KETALAR 100 MG IV (05:00)
[2024-12-10] MEDS: CATAPRES 0.2 MG TUBE (05:26)
[2024-12-10] MEDS: D5W 1000 IV ×2 (05:26→18:57)
[2024-12-10] MEDS: ZANAFLEX 2 MG TUBE (05:26)
--- NOTE | 2024-12-10 06:46 | PHA.VAN.FU ---
Vancomycin Assessment / Plan
- Assessment
Renal Function: SCR Decreasing
WBC's are: Trending Down
In the past 24 hrs, patient has been: Afebrile
Concomitant Antimicrobials: NAFCILLIN
- Assessment - Therapeutic Drug Monitoring
Random Level: 15.1
- Dosing Plan
Dosing by Level: Re-dose today (1000MG)
- Monitoring Plan
Random Level: 12/11 IN AM
- Follow Up
Pharmacy will continue to follow.
Vancomycin Follow UP
- -
Patient Age: 39
Patient Sex: Male
Vancomycin Day #: 8
Indication: Bacteremia
Requesting Provider: Dr. Fofana / Teto
Pertinent Antimicrobial Allergies:
NKDA
Height / Weight:
Height 6 ft 2 in
Actual Weight 82.6 kg
IBW in k.2
Pertinent Past Medical History: IV JOCELIN
- Vital Signs / Lab Results
Temp Pulse Resp BP Pulse Ox
100.3 F 125 27 164/88 98
12/10/24 00:00 12/10/24 06:00 12/10/24 06:00 12/10/24 03:52 12/10/24 06:00
Lab Results - Hematology
12/08/24 12/09/24 12/10/24
03:02 03:54 03:14
WBC 20.9 H 15.3 H 13.8 H
Lab Results - Chemistry
12/08/24 12/08/24 12/09/24
03:02 16:25 03:54
BUN 64 H 57 H 58 H
Creatinine 1.9 H 1.7 H 1.6 H
Estimated Creat Clear 61 69 73
Albumin 2.6 L
12/10/24
03:14
BUN 51 H
Creatinine 1.5 H
Estimated Creat Clear 78
Albumin 2.6 L
Microbiology Results
12/05/24 13:38 Blood Culture - Preliminary
Blood/Venous Staph aureus MRSA
Gram Stain - Preliminary
12/09/24 03:54 Blood Culture - Preliminary
Blood/Venous No Growth in 24 hours- Final report to follow
12/07/24 04:06 Blood Culture - Preliminary
Blood/Venous Positive culture in progress
Gram Stain - Preliminary
12/08/24 03:02 Blood Culture - Preliminary
Blood/Venous Positive culture in progress
Gram Stain - Preliminary
12/05/24 16:46 Blood Culture - Preliminary
Blood/Venous Staphylococcus aureus
Gram Stain - Preliminary
Therapeutic Drug Monitoring
Random Vancomycin 15.1 ug/ml 12/10/24 03:14
[2024-12-10] MEDS: PROTONIX IV 40 MG IV (07:42)
[2024-12-10] MEDS: NSS (PRESERVATIVE FREE) 10 ML IV (07:42)
[2024-12-10] MEDS: LASIX 40 MG IV (07:42)
[2024-12-10] MEDS: THIAMINE INJECTION 100 MG IV (07:42)
[2024-12-10] MEDS: LOW STRENGTH ASPIRIN 81 MG TUBE (07:43)
[2024-12-10] MEDS: HEPARIN 5000 UNITS SC ×2 (07:43→20:00)
[2024-12-10] MEDS: SEROQUEL 50 MG PO (07:43)
[2024-12-10] MEDS: MIRALAX 17 GRAMS TUBE (07:43)
[2024-12-10] MEDS: VANCOCIN 200 IV (08:02)
--- NOTE | 2024-12-10 08:15 | W.PN.ID1 ---
Date of Service
Date of Service: December 10, 2024
Today's Communication
Continue antibiotics for today. Follow blood cultures.
Assessment / Plan
# Complicated sustained Staphylococcus aureus bacteremia
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
# Multiple embolic CVA
# New Seizure
# Fever; persists
# Leukocytosis; persists
# Intubated 12/03
# LE, stable
# Polysubstance abuse (cocaine and fentanyl skin/muscle popper)
# hx MRSA wound abscesses (2010)
# hx of Viridans strep bacteremia (2010)
- Patient remains critically ill in intensive care unit and not surgical candidate at this time, as per CTS.
- Repeat blood cultures remain positive.
- Repeating blood cultures until clear
- Discussed with microbiology. There is discrepancy between blood cx PCR identified as MRSA and phenotype - identified as MSSA
Further work-up in progress.
- Continue IV Vancomycin and Nafcillin 2g IV q4h for now.
Monitor renal function and LFT's while on nafcillin.
- Trend wbc, temps.
- Overall prognosis appears extremely poor given significant comorbidities.
- Patient not a surgical candidate per CT Surgery. If blood cultures failed to clear, discussions regarding goals of care should ensue.
Chief Complaint
-: Clinical Sepsis, Bacteremia and Other (embolic CVA)
Subjective / Review of Systems
Patient seen and examined. Fevers ongoing. Remains vent dependent.
Vital Signs / Physical Exam
Vital Signs
Vital Signs
Temp Pulse Resp BP Pulse Ox
100.3 F 100 22 165/98 98
12/10/24 00:00 12/10/24 07:42 12/10/24 06:30 12/10/24 07:42 12/10/24 06:30
Physical Exam
Constitutional: Acutely Ill and Chronically Ill
Oropharyngeal: Poor Dention
Cardiovascular: S1/S2 and Other (tachycardic)
Pulmonary: Clear (anteriorly) and Other (ET tube in place to vent.)
Gastrointestinal: Soft, Non Tender and Non Distended
Genito-Urinary: Balderas and Clear Urine
Extremities: Edema, Splinter Hemorrhage (Fingers bilaterally) and Janeway Lesions (Fingers, soles of feet)
Neurological: Other (sedated although minimally arousable to voice.)
Objective Data
Lab Data
Lab Results
12/10/24 03:14
12/10/24 03:14
Estimated Creat Clear 78 ml/min 12/10/24 03:14
Lactic Acid 1.3 mmol/L (0.7-2.0) 12/05/24 16:46
Total Bilirubin 1.1 mg/dl (0.2-1.3) 12/10/24 03:14
AST 34 U/L (17-59) 12/10/24 03:14
ALT 27 U/L (0-50) 12/10/24 03:14
Alkaline Phosphatase 82 U/L (38-126) 12/10/24 03:14
Amylase 139 U/L (30-110) H 12/05/24 04:04
Most recent labs reviewed.
Micro Results:
12/09/24 03:54 Blood Culture - Preliminary
Blood/Venous Positive culture in progress
Gram Stain - Preliminary
12/05/24 13:38 Blood Culture - Preliminary
Blood/Venous Staph aureus MRSA
Gram Stain - Preliminary
12/10/24 03:14 Blood Culture - Pending
Blood/Venous
12/07/24 04:06 Blood Culture - Preliminary
Blood/Venous Positive culture in progress
Gram Stain - Preliminary
12/08/24 03:02 Blood Culture - Preliminary
Blood/Venous Positive culture in progress
Gram Stain - Preliminary
12/05/24 16:46 Blood Culture - Preliminary
Blood/Venous Staphylococcus aureus
Gram Stain - Preliminary
12/03/24 08:20 Blood Culture - Final
Blood/Venous S aureus-Methicillin Sensitive
Gram Stain - Final
12/03/24 09:21 Blood Culture - Final
Blood/Venous S aureus-Methicillin Sensitive
Gram Stain - Final
12/03/24 08:38 Urine Culture - Final
Urine S aureus-Methicillin Sensitive
12/03/24 18:44 MRSA Screen - Final
Nose No Methicillin Resistant Staphylococcus aureus isolated.
Imaging:
12/05/24 CT a/p: Mild inflammatory change adjacent to the body and tail of the pancreas, suggestive of mild pancreatitis. No peripancreatic fluid collection appreciated. No evidence of intestinal obstruction or bowel inflammatory process. Study is
slightly limited by lack of intravenous or oral contrast. Gallbladder sludge without evidence of acute cholecystitis. No radiopaque gallstones are seen.
12/04/24 MRI brain: Numerous scattered acute infarctions in a distribution that is most suggestive of embolic phenomenon in the setting of known IV drug abuse. Multiple small microhemorrhages are also demonstrated.
12/03/24 CXR: Clear lungs.
12/03/[address]: Possible cortical petechial hemorrhages in the left frontal lobe and left occipital lobe. Possible small old infarct, periventricular small vessel ischemic disease or edema due to underlying mass in the left occipital lobe.
Care Review
Plan reviewed with: Nurse
--- NOTE | 2024-12-10 09:32 | W.PN.INTV ---
Today's Communication / Plan
Recommendations
- DC clonidine and tizanidine, minimize polypharmacy
- Start Precedex infusion and attempt to wean ketamine and Versed
- Follow-up labs in a.m. chest x-ray to monitor QT interval
- Advance tube feeding to 20 mL/h
Assessment
-
39-year-old male with history of polysubstance abuse, presents with 4 days of fevers, progressive 2 days of tremors, nausea/emesis on day of admission found to have confusion, suspected sepsis, multiple brain lesions, transaminitis, rhabdomyolysis.
Patient treated with IV antibiotics, IV fluids, withdrawal protocol with Dilaudid, buprenorphine in the ED. Also found to have prolonged QT. Admitted to ICU for further management. Required intubation and mechanical ventilation starting 12/03.
Conditions present prior to admission
History of MRSA bacteremia 2010
Right forearm abscess
Right mandibular fracture 2010
Status post closed reduction
12/10 overview: No further seizure-like activities. Current infusions Versed, ketamine, fentanyl drip, D5W at 75. Currently tube feeding ongoing at 10 mL/h along with 25 mL of water flushes. Fluid balance net even. Current vent settings
500/20/40%/5. MAP of 114, saturating 98%.
Assessment and plan
#1. Polysubstance drug use with severe sepsis, MSSA/MRSA bacteremia and mitral valve endocarditis
- Suspect embolic intracranial cortical petechial hemorrhages, also developing [place] lesions on the palms
- Lactic acid as high as 6.5, serial lactate down to 2.0, s/p IV hydration, intubation and mechanical ventilation
- ID service on case, currently on IV nafcillin and IV vancomycin, some diagnostic uncertainty about MSSA versus MRSA versus both
- CT surgery on case, patient not felt to be currently a candidate for surgical intervention due to critical illness.
- Continues to be febrile with persistent bacteremia and positive blood cultures.
#2. Acute toxic metabolic encephalopathy, ?seizures
- Related to severe sepsis, lactic acidosis, MRSA bacteremia as well as intracranial petechial hemorrhages
- Petechial hemorrhages confirmed on MRI. Aspirin 81 mg started per neurology service
- Patient required intubation on 12/03 due to worsening encephalopathy
- Neurology on case
- Episodes of tremulousness with ventilator asynchrony, tachypnea and desaturation. Concerning for seizure, however both cerebellar and subsequent EEG negative. Neurology on case. Presentation more likely related to withdrawal.
- Follow-up CT head unchanged
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 Portable bedside EEG with Cerribell was started, no seizure activity noted, additional dosing held.
- 12/10, intermittent more lucid intervals observed. Minimize polypharmacy, discontinue clonidine and tizanidine. Add Precedex infusion and attempt to wean ketamine and Versed.
#3. Lactic acidosis
- Due to MSSA bacteremia and severe sepsis
- Improving with IV hydration and intubation with mechanical ventilation
#4. Acute renal insufficiency, hypernatremia
- Nonoliguric, creatinine stable to improving.
- Continue IV Lasix
- Continue D5W to 75 mL/h, also continue tube feeding with free water, monitor electrolytes
- Good urine output
#5. Acute transaminitis and Acute rhabdomyolysis
- In the setting of severe sepsis, polysubstance drug use
- IV LR stopped as patient developing anasarca, diuresis initiated
#6. Polysubstance abuse
- DC clonidine and tizanidine, buprenorphine protocol when able to take p.o.
- Continue empiric thiamine replacement
- Continue fentanyl, Versed and ketamine infusion. Add Precedex and attempt to wean sedation
- Continue Seroquel 50 in the morning and 100 at night
#7. QT prolongation
- Suspect in the setting of electrolyte imbalance
- Follow-up EKG shows improving QTc
- Continue to replace potassium as needed
- Follow-up K, mag and phosphorus levels closely
#8. Vomiting, Acute pancreatitis
- Elevated lipase noted
- Trophic postpyloric feeding started 12/08, currently at 10 cc/h, will advance to 20 mL/h, with plan for ongoing gradual increase as tolerated
#9.Elevated Triglycerides
- Propofol infusion discontinued on 12/05, monitor for now
- Follow-up levels improving
DVT prophylaxis, Continue subcu heparin. GI prophylaxis with IV PPI.
Critical Care time 40 mins -- The patient is admitted for acute critical illness for the treatment of vital organ failure and/or prevention of further life-threatening conditions. Total care includes time spent in review of history, physical exam,
medications, hemodynamic/ventilator parameters, laboratory data, imaging and discussion with house staff, pharmacy, respiratory therapy, hair preparer, and nursing.
Subjective Dataa
Subjective Data
Date of Service:
Date of Service: December 10, 2024
Subjective:
Patient continues to be mechanically ventilated, intubated and sedated
Review of Systems
General: Unobtainable - Sedation
Objective Data
Data Reviewed
Vital Signs / I&O / Oxygen:
Vital Signs
Temp Pulse Resp BP Pulse Ox
100.1 F 113 20 165/98 98
12/10/24 08:00 12/10/24 08:30 12/10/24 08:30 12/10/24 08:00 12/10/24 08:38
Intake and Output
12/09/24 12/10/24 12/11/24
06:59 06:59 06:59
Intake Total 4565.9 / 4819.9 3932.2 / 4068.2 390 / 390
Output Total 4600 / 4700 4030 / 4080 100 / 100
Balance -34.1 / 119.9 -97.8 / -11.8 290 / 290
SaO2 [A/C] 97
SaO2 98
Physical Exam
General: Other (Synchronous with vent this morning)
HEENT: Normocephalic
Cardiovascular: S1-S2
Respiratory: Clear and Non-Labored Respirations
GI: Soft and Distended
Neurology: Other (Sedated, intermittent more lucid moments noted per nursing staff)
Skin: Warm
Labs/Micro/Reports
Lab Data
12/10/24 03:14
12/10/24 03:14
Microbiology
12/07/24 04:06 Blood/Venous Blood Culture - Preliminary
Staph aureus MRSA
12/07/24 04:06 Blood/Venous Gram Stain - Preliminary
12/05/24 16:46 Blood/Venous Blood Culture - Preliminary
Staph aureus MRSA
12/05/24 16:46 Blood/Venous Gram Stain - Preliminary
12/05/24 13:38 Blood/Venous Blood Culture - Preliminary
Staph aureus MRSA
12/05/24 13:38 Blood/Venous Gram Stain - Preliminary
12/09/24 03:54 Blood/Venous Blood Culture - Preliminary
Positive culture in progress
12/09/24 03:54 Blood/Venous Gram Stain - Preliminary
12/08/24 03:02 Blood/Venous Blood Culture - Preliminary
Positive culture in progress
12/08/24 03:02 Blood/Venous Gram Stain - Preliminary
--- NOTE | 2024-12-10 10:12 | W.PN.CARDCBS ---
Today's Communication / Plan
-
Maintain current dose of diuretic
Consider repeat echocardiogram later this week
Impression / Plan
-
Primary Mobility Scooter Repairer: none prior to admission
Assessment:
Presentation with change in mental status
Sepsis
Septic emboli by brain MRI
MSSA bacteremia
Pancreatitis
TME
VDRF
LE
Rhabdomyolysis
Elevated LFTs
Thrombocytopenia
IVDA since age 19
Vaping
ECHO 12/04/24: EF 55 to 60%, no regional wall motion abnormalities noted, no evidence of vegetation seen
KELI 12/07/24: EF 65%, large endocarditis/vegetations attached to mitral annulus measuring ~1x1cm each, mild MR, no Tricuspid or aortic vegetations
Plan:
Remains critically ill with multisystem organ failure.
He has a history of polysubstance abuse including IV drug abuse.
He has septic shock with blood cultures with complicated findings and still a question of whether it is MRSA or MSSA
He has mitral valve infective endocarditis with fevers, septic shock, large mitral valve vegetations (mitral regurgitation at most recent imaging on 12/07/2024 is mild), multiple embolic CVAs, respiratory failure, seizures, acute kidney injury
He is not a CT surgical candidate at present
He is volume overloaded (HFpEF)
Continue IV Lasix 40 mg daily, fluid balance is 150 cc negative, weight is down 2 pounds overnight, creatinine stable at 1.6 (actually slightly improved over the past 3 days from 1.9)
There is only mild mitral regurgitation on echocardiogram from December 07, 2024
However, given ongoing fever/bacteremia and endocarditis we will repeat an echo next week to reassess his mitral valve and endovascular lesions.
Continue broad-spectrum antibiotics.
Remains unclear whether this is MSSA or MRSA. Defer to infectious disease. He will need long-term antibiotics.
Continue to avoid meds which will increase triglycerides as patient also has low-level pancreatitis.
Discussed with ICU nursing as well as patient's mother and sister who are at the bedside today.
CC time 30 min
Progress Note - Mobility Scooter Repairer
Subjective
Date of Service: December 10, 2024
He is more awake this morning as sedation is being slowly weaned off and he appears comfortable.
Objective
Labs:
12/10/24 03:14
12/10/24 03:14
Labs
Hgb 9.5 g/dL (13.0-18.0) L 12/10/24 03:14
Hct 27.7 % (39.0-52.0) L 12/10/24 03:14
Plt Count 231 10^3/uL (130-400) D 12/10/24 03:14
Sodium 148 mmol/L (135-145) H 12/10/24 03:14
Potassium 3.4 mmol/L (3.5-5.1) L 12/10/24 03:14
BUN 51 mg/dl (9-20) H 12/10/24 03:14
Creatinine 1.5 mg/dL (0.7-1.3) H 12/10/24 03:14
Glucose 122 mg/dl (70-99) H 12/10/24 03:14
Vital Signs and I&O:
Vital Signs
Temp Pulse Resp BP Pulse Ox
100.1 F 117 21 165/98 98
12/10/24 08:00 12/10/24 09:30 12/10/24 09:30 12/10/24 08:00 12/10/24 09:30
Vital Signs
Temp Pulse Resp BP Pulse Ox
100.1 F 117 21 165/98 98
12/10/24 08:00 12/10/24 09:30 12/10/24 09:30 12/10/24 08:00 12/10/24 09:30
Intake & Output
12/08/24 12/09/24 12/10/24 12/11/24
06:59 06:59 06:59 06:59
Intake Total 4276 / 4425.6 4565.9 / 4819.9 3932.2 / 4068.2 736 / 736
Output Total 3315 / 3400 4600 / 4700 4030 / 4080 450 / 450
Balance 961 / 1025.6 -34.1 / 119.9 -97.8 / -11.8 286 / 286
Physical Exam
Physical Exam
Intubated and sedated but a bit more lucid this morning.
Regular rate and rhythm, mildly tachycardic, normal S1 and S2, no S3 or S4. There is a grade 1/6 apical holosystolic murmur no rub. PMI is normally placed.
Lungs clear anteriorly
Abdomen soft and nondistended
Extremities with trace pretibial edema bilaterally
--- NOTE | 2024-12-10 10:20 | VATNOTE ---
routine rounds - noticable edema to b/l upper extremities, L side greater than R side. Measured approx 1.5 cm difference. Discussed with PCN peripheral vascular ultrasound recommended.
[2024-12-10] MEDS: PRECEDEX 100 IV ×2 (10:33→22:37)
--- NOTE | 2024-12-10 16:54 | W.PN.HOSP.TC ---
Today's Communication/Plan
-
Assessment / Plan
Assessment / Plan
General: Acutely ill-appearing, intubated, now awake
HEENT: NormoCephalic, ETT in NGT in place, pupils equal
Respiratory: Mechanical breath sounds bilaterally
Cardiac: S1/S2 and Regular Rhythm; No Rub or Gallop
GI: Soft, Non Tender, Non Distended and Normal Bowel Sounds
Musculoskeletal: Bilateral upper extremity edema, no deformity
Skin: Warm and dry, multiple scattered annular scars on bilateral legs and feet
: Balderas in place draining clear yellow urine
Neuro: Awake, able to follow simple commands, no tremors
Psych: Unable to assess
Mr. Alonzo is a 39-year-old male with a medical history of polysubstance abuse (skin popping with fentanyl) who was admitted after presentation with altered mental status. He was brought in by his parents with tremors and confusion. His mental
status abruptly declined and he was intubated for airway protection. CT brain showed possible left occipital lobe mass. His blood cultures are positive for MRSA. He is currently being managed in the ICU for treatment of encephalopathy and
bacteremia.
Septic shock secondary to MRSA/MSSA bacteremia:
- Remains on vasopressors
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
- Still persistently febrile, leukocytosis improving
- Transesophageal echocardiogram 12/06 showed large mitral annulus vegetation
- No current plans for cardiothoracic surgery due to critical illness
- ID following, continue antibiotics with vancomycin and nafcillin, repeat cultures still positive
Acute toxic metabolic encephalopathy:
- Cautiously weaning ketamine and Versed drips and transitioning to Precedex, eyes open this morning and able to follow simple commands
- Continue EEG monitoring, no acute epileptiform activity captured
- Encephalopathy likely multifactorial due to bacteremia, opiate withdrawal, and and suspected septic emboli to brain
- MRI brain consistent with suspicion for septic emboli, repeat CT brain shows stable findings
- Continue mechanical ventilation for airway protection, vent management per baseball glove stuffer
- Seroquel dose increased to 50 mg daily and 100 mg at night
- Will titrate down on opiate withdrawal medications as able
LE:
- Creatinine 1.5 today, baseline appears less than 1
- Suspect related to rhabdomyolysis and shock
- Continuing IV fluids with D5W
Hypokalemia:
- Mild, replete
- Monitor
Rhabdomyolysis:
- Continue IV fluids
Elevated LFTs:
- Suspect due to severe sepsis
- Resolved, monitor with treatment as above
Pancreatitis:
- Elevated lipase, CT imaging with evidence of pancreatic inflammation
- Triglycerides elevated but improving, discontinued propofol for sedation, trend triglyceride levels
- Currently tolerating tube feeds
Lactic acidosis:
- Resolved, continue to monitor
Polysubstance abuse:
- Long history of injection drug abuse
- Titrate clonidine and tizanidine, Versed and ketamine drips as able
- Can initiate buprenorphine treatment when tolerating p.o.
DVT prophylaxis: SCDs
CODE STATUS: Full code
Total time spent on today's encounter was 45 minutes
Anticipated Discharge: > 48 hours
Subjective/Interval History
-
Date of Service: December 10, 2024
Patient was seen and examined at bedside this morning. Weaning sedation and he is able to open his eyes and follow simple commands.
Objective Data
-
Vital Signs:
Vital Signs
Temp Pulse Resp BP Pulse Ox
99.9 F 90 20 96/48 100
12/10/24 14:46 12/10/24 14:46 12/10/24 14:46 12/10/24 14:46 12/10/24 15:30
I&O
12/09/24 12/10/24 12/11/24
06:59 06:59 06:59
Intake Total 4565.9 / 4819.9 3932.2 / 4068.2 1640.5 / 1640.5
Output Total 4600 / 4700 4030 / 4080 1050 / 1050
Balance -34.1 / 119.9 -97.8 / -11.8 590.5 / 590.5
Review of Systems
-
Unable to obtain full review of systems at this time due to: Patient Intubation
Physical Exam
-
General: Intubated
--- NOTE | 2024-12-10 17:51 | PTCARENOTE ---
Updated assessment, vital signs and trends ongoing and as documented. Follow up thru shift closely with instantizer operator team and pharmacy. Working to decrease sedation, conversion to prescedex, complete ketamine drip and wean versed further. Plan
progression toward am sbt and weaning trials. Patient presently will wake follow simple commands(nod, blink when asked, thumbs up) will periodically have tremors but remain self limiting. Continue temperature curve trend. Hospitalist, cardiology and
instantizer operator teams have been with family thru day. Continue updated teaching and plan of cares. Supportive cares and emotional support ongoing.
--- NOTE | 2024-12-10 19:51 | VATNOTE ---
Ultrasound of Lt. arm with Picc +non occlusive thrombus, call to project management to make aware, she will notify [employer]KE[employer] ROUTE DRIVER of same. Will follow.
[2024-12-10] MEDS: VERSED 5 MG IV (20:00)
--- NOTE | 2024-12-10 20:00 | PTCARENOTE ---
Received pt intubated and sedated on ketamine, versed, fentanyl and precedex gtts. Pt. opens eyes spontaneously, follows simple commands. Restless at times. CPOT 0. Generalized weakness. SR/ST on tele, HR 90-110. BP 100-120/60s via R radial A line -
transduced and zeroed. +2 gen anasarca. Temp 100.0 core - monitoring. #8 ETT @ 26cm, moved to the left. Tolerating A/C 20/500/+5/40%. Spo2 98%. Lungs coarse throughout. Suctioned orally for clear secretions. Mouth care provided. Hypoactive bowel
sounds. NG tube with jevity 1.5 @ 20ml/hr with 25ml/hr h20 flush. FMS in place. Balderas draining patti urine. R midline in place. L PICC with ketamine, versed, fent and precedex gtts and D5W @75ml/hr.
Discussed ultrasound findings of acute nonocclusive DVT in L brachial vein with VAT RN and DEWAYNE Fields - no new orders at this time.
[2024-12-10] MEDS: SEROQUEL 100 MG TUBE (22:23)
[2024-12-10] MEDS: SUBLIMAZE 100 MCG IV (22:37)
--- NOTE | 2024-12-10 22:43 | PTCARENOTE ---
QTc monitoring reading [id number]. DECONTAMINATOR aware. Monitor for now, no new orders.
[2024-12-11] VITALS (8 sets, daily range): BP systolic 106–149; BP diastolic 56–95; BMI 23.2
[2024-12-11] MEDS: NAFCIL 108 MG IV ×7 (00:28→23:49)
[2024-12-11] MEDS: VERSED 5 MG IV ×3 (00:42→06:09)
--- NOTE | 2024-12-11 01:14 | PTCARENOTE ---
QTc improved at this time- ranging 400-550.
Bathed with CHG, zambrano care provided.
[2024-12-11] MEDS: SUBLIMAZE 100 IV ×6 (01:43→23:48)
[2024-12-11] MEDS: SUBLIMAZE 100 MCG IV ×2 (02:16→04:18)
[2024-12-11] MEDS: REFRESH CELLUVISC GEL 1 DROPS OPHTH ×2 (02:52→15:07)
[2024-12-11] MEDS: VERSED 50 IV (02:52)
[2024-12-11 03:40] LABS: B.E. 5.3 mmol/L; HCO3 28.9 mmol/L (21-28); O2 Saturation % 99.6 % (94-98); PCO2 37 mmHg (35-48); PO2 149 mmHg (83-108)
[2024-12-11 03:47] LABS: Hematocrit 23.1 % (39.0-52.0); Hemoglobin 7.9 g/dL (13.0-18.0); Mean Corp Hgb Conc. 34.2 g/dL (33.0-37.0); Mean Corpuscular Volume 85.9 fL (80.0-94.0); Nucleated Red Blood Cells % 0 % (-); Platelet Count 279 10^3/uL (130-400); Red Cell Dist. Width 14.0 % (11.5-14.5)
[2024-12-11] MEDS: PRECEDEX 100 IV ×6 (04:07→21:12)
[2024-12-11] MEDS: TYLENOL ORAL SOLUTION 650 MG TUBE ×3 (04:08→21:12)
[2024-12-11 04:10] LABS: ALT (SGPT) 20 U/L (0-50); AST (SGOT) 25 U/L (17-59); Albumin 2.2 g/dl (3.5-5.0); Alkaline Phosphatase 77 U/L (38-126); Blood Urea Nitrogen 38 mg/dl (9-20); Calcium 7.5 mg/dl (8.4-10.2); Carbon Dioxide 27 mmol/L (22-30); Chloride 115 mmol/L (98-107); Estimated Creatinine Clearance 78 ml/min; Glucose 117 mg/dl (70-99); Magnesium 2.0 mg/dl (1.6-2.3); Potassium 2.9 mmol/L (3.5-5.1); Sodium 146 mmol/L (135-145); Total Protein 5.4 g/dl (6.3-8.2); eGFR > 60.00
--- NOTE | 2024-12-11 04:24 | PTCARENOTE ---
Pt restless, eyes wide open, SBP 170-180s via A line. HR 110s. PRN fentanyl given and fentanyl gtt increased. Has required multiple boluses overnight of fentanyl and versed. Precedex gtt titrated up to 1.2mcg also. Febrile 100.5 again - tylenol
given.
[2024-12-11] MEDS: KCL ELIXIR 40 MEQ TUBE ×2 (04:38→15:07)
[2024-12-11] MEDS: KCL 100 IV ×2 (04:39→15:07)
[2024-12-11] MEDS: NSS (PRESERVATIVE FREE) 10 ML IV (07:49)
[2024-12-11] MEDS: LASIX 40 MG IV (07:49)
[2024-12-11] MEDS: THIAMINE INJECTION 100 MG IV (07:49)
[2024-12-11] MEDS: PROTONIX IV 40 MG IV (07:49)
[2024-12-11] MEDS: HEPARIN 5000 UNITS SC ×2 (07:50→19:32)
[2024-12-11] MEDS: MIRALAX TUBE (07:50)
[2024-12-11] MEDS: SEROQUEL 50 MG PO (07:50)
[2024-12-11] MEDS: LOW STRENGTH ASPIRIN 81 MG TUBE (07:50)
--- NOTE | 2024-12-11 08:17 | W.PN.INTV ---
Today's Communication / Plan
Recommendations
- Restart ketamine drip in an effort to wean off fentanyl + Versed drip
- Start prn Valium while weaning off Versed drip to avoid benzodiazepine withdrawal/withdrawal seizure
- Continue mechanical ventilation
- Hopefully can extubate in the next 1-2 days while weaning off above sedating drips
- Continue with antibiotics per ID
- Eventual evaluation by CT surgery for mitral valve replacement
- Continue TF
- Continue ICU level of care for this critically ill patient
Assessment
-
39-year-old male with history of polysubstance abuse, presents with 4 days of fevers, progressive 2 days of tremors, nausea/emesis on day of admission found to have confusion, suspected sepsis, multiple brain lesions, transaminitis, rhabdomyolysis.
Patient treated with IV antibiotics, IV fluids, withdrawal protocol with Dilaudid, buprenorphine in the ED. Also found to have prolonged QT. Admitted to ICU for further management. Required intubation and mechanical ventilation starting 12/03.
Conditions present prior to admission
History of MRSA bacteremia 2010
Right forearm abscess
Right mandibular fracture 2010
Status post closed reduction
Assessment and plan
#1. Polysubstance drug use with severe sepsis, MSSA/MRSA bacteremia and mitral valve endocarditis
- Suspect embolic intracranial cortical petechial hemorrhages, also developing Janeway lesions on the palms
- ID service on case, currently on IV nafcillin and IV vancomycin, some diagnostic uncertainty about MSSA versus MRSA versus both
- CT surgery on case, patient not felt to be currently a candidate for surgical intervention due to critical illness.
- Continues to be febrile; blood cultures collected yesterday and today show NGTD
#2. Acute toxic metabolic encephalopathy, ?seizures
- Encephalopathy markedly improved as of 12/11
- Related to severe sepsis, lactic acidosis, MRSA bacteremia as well as intracranial petechial hemorrhages
- Numerous scattered acute infarctions with multiple small microhemorrhages confirmed on MRI. Aspirin 81 mg started per neurology service
- Patient required intubation on 12/03 due to worsening encephalopathy
- Previously had episodes of tremulousness with ventilator asynchrony, tachypnea and desaturation. Concerning for seizure, however both cerebellar and subsequent EEG negative. Presentation more likely related to withdrawal.
- No seizure-like activity as of 12/11
- Follow-up CT head unchanged
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 Portable bedside EEG with Cerribell was started, no seizure activity noted, additional dosing held.
- 12/10, intermittent more lucid intervals observed. Minimize polypharmacy, discontinue clonidine and tizanidine. Add Precedex infusion and attempt to wean ketamine and Versed.
- As of 12/11, patient remains on very high dose of fentanyl drip and also on Versed drip � keep on Precedex infusion and ketamine drip started in an effort to wean off Versed + fentanyl drips
- Would start prn Valium while weaning off Versed drip to avoid benzodiazepine withdrawal/withdrawal seizure
#3. Lactic acidosis - resolved
- Due to MSSA bacteremia and severe sepsis
- Resolved with IV hydration
#4. Acute renal insufficiency, hypernatremia
- Serum sodium improving on D5W
- Continue IV Lasix
- Continue tube feeding with free water, monitor electrolytes
- Monitor UOP and trend sCr, strict I/O
#5. Acute transaminitis and Acute rhabdomyolysis (in the setting of severe sepsis, polysubstance drug use)
- LFTs have now normalized as of 12/10
- Previously, IVF with LR stopped as patient developed anasarca, diuresis initiated
#6. Polysubstance abuse
- DC'd clonidine and tizanidine, buprenorphine protocol when able to take p.o.
- Continue empiric thiamine replacement
-Wean down on fentanyl + Versed drips, resuming ketamine infusion today (12/11), continue Precedex drip to help wean down sedation
- Continue Seroquel 50mg in the morning and 100mg at night
#7. QT prolongation
- Suspect in the setting of electrolyte imbalance
- Follow-up EKG shows improving QTc
- EKG from 12/10 showed QTc 478ms
- Replete K>4, Mg>2, and PO4>3
#8. Vomiting, Acute pancreatitis
- Elevated lipase noted - 601 on 12/06/2024
- Recheck lipase tomorrow (12/12)
- Trophic postpyloric feeding started 12/08
#9.Elevated Triglycerides
- Propofol infusion discontinued on 12/05, monitor for now
- Follow-up levels improved
- Continue to monitor
#10.LUE DVT involving brachial vein
- Given his multiple scattered acute infarctions with microhemorrhages, patient is high risk for ICH if systemic anticoagulation started
- Monitor with serial duplex US to assure no propagation of left brachial vein clot
- Currently left-sided PICC line has blood return and is able to flush, hence no need to remove at this time
Lines:
LUE PICC line
RUE Midline
DVT prophylaxis, Continue subcu heparin. GI prophylaxis with IV PPI.
Continue ICU level of care for this critically ill patient.
Critical care statement: A total of 40 minutes of critical care time was provided for this patient today. This includes management of unstable vital signs, evaluation of the patient at bedside, reviewing the patient�s pertinent medical records
including radiographs, microbiology, laboratory evaluations, and��discussion with primary team, consultants, pharmacy, nutrition, physical therapy, case management, charge nurse, critical care nursing, and respiratory therapy.
Subjective Dataa
Subjective Data
Date of Service:
Date of Service: December 11, 2024
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
Subjective:
Pt seen and evaluated this AM. Versed at 4mg/hr, fentanyl at 225 mcg/hr, dex at 1.4 mcg/kg/hr. Remains intubated. Current heart rate 107, BP 129/95 (via NIBP), saturating 100%. Current vent settings are: CMV 20/500/40%/5. Current PIP 20 cmH2O,
VTe 536 mL and breathing at 20 breaths/min. He is awake, alert, responding to questions by nodding his head. Patient's parents, Maritza and You, present at bedside and all questions were answered.
Review of Systems
General: Other (Unobtainable as patient is intubated)
Objective Data
Data Reviewed
Vital Signs / I&O / Oxygen:
Vital Signs
Temp Pulse Resp BP Pulse Ox
100 F 116 21 149/95 100
12/11/24 07:17 12/11/24 09:00 12/11/24 09:00 12/11/24 08:00 12/11/24 09:00
Intake and Output
12/10/24 12/11/24 12/12/24
06:59 06:59 06:59
Intake Total 3932.2 / 4068.2 4380.0 / 4650.8 808.6 / 808.6
Output Total 4030 / 4080 2955 / 2975 630 / 630
Balance -97.8 / -11.8 1425.0 / 1675.8 178.6 / 178.6
SaO2 [A/C] 100
SaO2 100
Physical Exam
General: Respiratory Distress (negative), Comfortable, Chills (negative) and Sweats (negative)
HEENT: Normocephalic, Anicteric and Other (ETT in place)
Cardiovascular: S1-S2 and Peripheral Edema (+3 lower extremity pitting edema bilaterally)
Respiratory: Wheeze (negative), Rhonchi (negative), Non-Labored Respirations, Stridor (negative), Other (Coarse breath sounds heard bilaterally) and Other (Mechanical breath sounds heard bilaterally)
GI: Soft, Non Distended, Non Tender and Normal Bowel Sounds
Neurology: Other (Sedated, although easily arousable to voice and tactile stimulation, calm, following all commands)
Skin: Warm, Dry, Cyanosis (negative) and Jaundice (negative)
Labs/Micro/Reports
Lab Data
12/11/24 03:33
12/11/24 03:33
Laboratory Results
12/11/24
03:33
pH 7.50 H
pCO2 37
pO2 149 H
HCO3 28.9 H
O2 Delivery Level
Microbiology
12/10/24 03:14 Blood/Venous Blood Culture - Preliminary
No Growth in 24 hours- Final report to follow
12/08/24 03:02 Blood/Venous Blood Culture - Preliminary
Staph aureus MRSA
12/08/24 03:02 Blood/Venous Gram Stain - Preliminary
12/07/24 04:06 Blood/Venous Blood Culture - Preliminary
Staph aureus MRSA
12/07/24 04:06 Blood/Venous Gram Stain - Preliminary
12/05/24 16:46 Blood/Venous Blood Culture - Preliminary
Staph aureus MRSA
12/05/24 16:46 Blood/Venous Gram Stain - Preliminary
12/05/24 13:38 Blood/Venous Blood Culture - Preliminary
Staph aureus MRSA
12/05/24 13:38 Blood/Venous Gram Stain - Preliminary
12/09/24 03:54 Blood/Venous Blood Culture - Preliminary
Positive culture in progress
12/09/24 03:54 Blood/Venous Gram Stain - Preliminary
[2024-12-11] MEDS: D5W 1000 IV (08:20)
--- NOTE | 2024-12-11 08:41 | W.PN.HOSP.TC ---
Today's Communication/Plan
-
Patient remains critically ill in the ICU.
Patient not a surgical candidate.
Repeat blood culture remains positive.
Continue vancomycin/nafcillin
Assessment / Plan
Assessment / Plan
Impression:
Patient is a 39-year-old male with a medical history of polysubstance abuse (skin popping with fentanyl) who was admitted after presentation with altered mental status. He was brought in by his parents with tremors and confusion. His mental status
abruptly declined and he was intubated for airway protection. CT brain showed possible left occipital lobe mass. His blood cultures are positive for MRSA. He is currently being managed in the ICU for treatment of encephalopathy and bacteremia.
Assessment/plan:
Septic shock secondary to MRSA/MSSA bacteremia:
- Remains on vasopressors
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
- Still persistently febrile, leukocytosis improving
- Transesophageal echocardiogram 12/06 showed large mitral annulus vegetation
- No current plans for cardiothoracic surgery due to critical illness
- ID following, continue antibiotics with vancomycin and nafcillin, repeat cultures still positive
Acute toxic metabolic encephalopathy:
- Cautiously weaning ketamine and Versed drips and transitioning to Precedex, eyes open this morning and able to follow simple commands
- Continue EEG monitoring, no acute epileptiform activity captured
- Encephalopathy likely multifactorial due to bacteremia, opiate withdrawal, and and suspected septic emboli to brain
- MRI brain consistent with suspicion for septic emboli, repeat CT brain shows stable findings
- Continue mechanical ventilation for airway protection, vent management per lug breaker and wire puller
- Seroquel dose increased to 50 mg daily and 100 mg at night
- Will titrate down on opiate withdrawal medications as able
LE:
- Creatinine 1.5 today, baseline appears less than 1
- Suspect related to rhabdomyolysis and shock
- Continuing IV fluids with D5W
Hypokalemia:
- Mild, replete
- Monitor
Rhabdomyolysis:
- Continue IV fluids
Elevated LFTs:
- Suspect due to severe sepsis
- Resolved, monitor with treatment as above
Pancreatitis:
- Elevated lipase, CT imaging with evidence of pancreatic inflammation
- Triglycerides elevated but improving, discontinued propofol for sedation, trend triglyceride levels
- Currently tolerating tube feeds
Lactic acidosis:
- Resolved, continue to monitor
Polysubstance abuse:
- Long history of injection drug abuse
- Titrate clonidine and tizanidine, Versed and ketamine drips as able
- Can initiate buprenorphine treatment when tolerating p.o.
CODE STATUS: Full code
DVT prophylaxis: SCDs
Diet: Jevity tube feeding
Family confusion: Discussed with mother and sister at bedside.
Total time spent on today's encounter was 75 minutes which included time spent in counseling the patient/family regarding diagnosis and treatment plan as listed above, goals of care, and symptom management. Case was discussed with nursing staff,
specialists, and care coordinators/case management. All labs and imaging personally reviewed by me. Remainder the time spent in detailed review of previous records, lab data, imaging, and other medical provider documentation.
Anticipated Discharge: > 48 hours
Subjective/Interval History
-
Date of Service: December 11, 2024
Patient remains intubated, updated family (mother and sister) at bedside
Objective Data
-
Labs:
Laboratory Results
12/11/24
03:33
WBC 8.2
Hgb 7.9 L
Hct 23.1 L
Plt Count 279 D
HCO3 28.9 H
Sodium 146 H
Potassium 2.9 L
Chloride 115 H
Carbon Dioxide 27
BUN 38 H
Creatinine 1.5 H
Glucose 117 H
Calcium 7.5 L
Total Bilirubin 1.0
AST 25
ALT 20
Alkaline Phosphatase 77
Vital Signs:
Vital Signs
Temp Pulse Resp BP Pulse Ox
100 F 106 20 149/95 100
12/11/24 07:17 12/11/24 08:00 12/11/24 08:00 12/11/24 08:00 12/11/24 08:00
I&O
12/10/24 12/11/24 12/12/24
06:59 06:59 06:59
Intake Total 3932.2 / 4068.2 4380.0 / 4650.8 553.7 / 553.7
Output Total 4030 / 4080 2955 / 2975 90 / 90
Balance -97.8 / -11.8 1425.0 / 1675.8 463.7 / 463.7
Physical Exam
-
General: Intubated
HEENT: Normocephalic and Atraumatic
Respiratory: Rales, Rhonchi and Crackles
Cardiac: Tachycardic
Breast: Deferred by me
GI: Soft, Nontender, Nondistended and Normal Bowel Sounds
Genito-urinary: No Costovertebral Tender
Musculoskeletal: No Clubbing, No Cyanosis and No Edema
Skin: Warm
Neuro: Sedated
Psych: Other (Sedated)
Data Reviewed
-
Diagnostic Radiology: Image personally visualized and interpreted and Report Reviewed by me
CT Scan: Image personally visualized and interpreted and Report Reviewed by me
Ultrasound: Image personally visualized and interpreted and Report Reviewed by me
MRI: Image personally visualized and interpreted and Report Reviewed by me
Medical Tests (Nuc Med, Echo etc): Image personally visualized and interpreted and Report Reviewed by me
Labs: Labs Reviewed by me
Old Records: Reviewed
--- NOTE | 2024-12-11 09:08 | PHA.VAN.FU ---
Vancomycin Assessment / Plan
- Assessment
Renal Function: Stable
WBC's are: WNL
In the past 24 hrs, patient has been: Febrile (100.8)
Concomitant Antimicrobials: nafcillin
- Assessment - Therapeutic Drug Monitoring
Random Level: 13.8 on 12/11 @ 03:33
- Dosing Plan
Dosing by Level: Re-dose today (vancomycin 1000 mg x 1)
- Monitoring Plan
Random Level: 7.22 @0600
- Follow Up
Pharmacy will continue to follow.
Vancomycin Follow UP
- -
Patient Age: 39
Patient Sex: Male
Vancomycin Day #: 9
Indication: Bacteremia
Requesting Provider: Dr. Fofana / Teto
Pertinent Antimicrobial Allergies:
NKDA
Height / Weight:
Height 6 ft 2 in
Actual Weight 81.8 kg
IBW in k.2
Pertinent Past Medical History: IV JOCELIN
- Vital Signs / Lab Results
Temp Pulse Resp BP Pulse Ox
100 F 116 21 149/95 100
12/11/24 07:17 12/11/24 09:00 12/11/24 09:00 12/11/24 08:00 12/11/24 09:00
Lab Results - Hematology
12/09/24 12/10/24 12/11/24
03:54 03:14 03:33
WBC 15.3 H 13.8 H 8.2
Lab Results - Chemistry
12/08/24 12/09/24 12/10/24
16:25 03:54 03:14
BUN 57 H 58 H 51 H
Creatinine 1.7 H 1.6 H 1.5 H
Estimated Creat Clear 69 73 78
Albumin 2.6 L
12/11/24
03:33
BUN 38 H
Creatinine 1.5 H
Estimated Creat Clear 78
Albumin 2.2 L
Microbiology Results
12/10/24 03:14 Blood Culture - Preliminary
Blood/Venous No Growth in 24 hours- Final report to follow
12/08/24 03:02 Blood Culture - Preliminary
Blood/Venous Staph aureus MRSA
Gram Stain - Preliminary
12/07/24 04:06 Blood Culture - Preliminary
Blood/Venous Staph aureus MRSA
Gram Stain - Preliminary
12/05/24 16:46 Blood Culture - Preliminary
Blood/Venous Staph aureus MRSA
Gram Stain - Preliminary
12/05/24 13:38 Blood Culture - Preliminary
Blood/Venous Staph aureus MRSA
Gram Stain - Preliminary
12/09/24 03:54 Blood Culture - Preliminary
Blood/Venous Positive culture in progress
Gram Stain - Preliminary
Therapeutic Drug Monitoring
Random Vancomycin 13.8 ug/ml 12/11/24 03:33
--- NOTE | 2024-12-11 09:31 | W.PN.ID1 ---
Date of Service
Date of Service: December 11, 2024
Today's Communication
Poor prognosis.
Assessment / Plan
# Complicated sustained Staphylococcus aureus bacteremia
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
# Multiple embolic CVA
# New Seizure
# Fever; persists
# Leukocytosis; resolved
# Intubated 12/03
# LE, stable
# Polysubstance abuse (cocaine and fentanyl skin/muscle popper)
# hx MRSA wound abscesses (2010)
# hx of Viridans strep bacteremia (2010)
- Patient remains critically ill in intensive care unit and not surgical candidate at this time, as per CTS.
- Repeat blood cultures remain positive.
- Repeating blood cultures until persistently clear
- Discussed with microbiology. There is discrepancy between blood cx PCR identified as MRSA and phenotype - identified as MSSA
Cefoxitin induced test negative. PBP2a negative.
- Will treat as both MRSA and MSSA.
- Continue IV Vancomycin and Nafcillin 2g IV q4h (both crosses blood-brain barrier)
Monitor renal function and LFT's while on nafcillin.
- Trend wbc, temps.
- Overall prognosis appears extremely poor given significant comorbidities.
- Patient not a surgical candidate per CT Surgery. If blood cultures failed to clear, discussions regarding goals of care should ensue.
Chief Complaint
-: Clinical Sepsis, Bacteremia and Other (embolic CVA)
Subjective / Review of Systems
Awake on vent.
Vital Signs / Physical Exam
Vital Signs
Vital Signs
Temp Pulse Resp BP Pulse Ox
100 F 116 21 149/95 100
12/11/24 07:17 12/11/24 09:00 12/11/24 09:00 12/11/24 08:00 12/11/24 09:00
Physical Exam
Constitutional: Acutely Ill and Chronically Ill
Oropharyngeal: Poor Dention
Cardiovascular: S1/S2 and Other (tachycardic)
Pulmonary: Clear (anteriorly) and Other (ET tube in place to vent.)
Gastrointestinal: Soft, Non Tender and Non Distended
Genito-Urinary: Balderas and Clear Urine
Extremities: Edema, Splinter Hemorrhage (Fingers bilaterally) and Janeway Lesions (Fingers, soles of feet)
Neurological: Other (sedated although minimally arousable to voice.)
Objective Data
Lab Data
Lab Results
12/11/24 03:33
12/11/24 03:33
Estimated Creat Clear 78 ml/min 12/11/24 03:33
Lactic Acid 1.3 mmol/L (0.7-2.0) 12/05/24 16:46
Total Bilirubin 1.0 mg/dl (0.2-1.3) 12/11/24 03:33
AST 25 U/L (17-59) 12/11/24 03:33
ALT 20 U/L (0-50) 12/11/24 03:33
Alkaline Phosphatase 77 U/L (38-126) 12/11/24 03:33
Amylase 139 U/L (30-110) H 12/05/24 04:04
Most recent labs reviewed.
Micro Results:
12/11/24 03:33 Blood Culture - Pending
Blood/Venous
12/10/24 03:14 Blood Culture - Preliminary
Blood/Venous No Growth in 24 hours- Final report to follow
12/08/24 03:02 Blood Culture - Preliminary
Blood/Venous Staph aureus MRSA
Gram Stain - Preliminary
12/07/24 04:06 Blood Culture - Preliminary
Blood/Venous Staph aureus MRSA
Gram Stain - Preliminary
12/05/24 16:46 Blood Culture - Preliminary
Blood/Venous Staph aureus MRSA
Gram Stain - Preliminary
12/05/24 13:38 Blood Culture - Preliminary
Blood/Venous Staph aureus MRSA
Gram Stain - Preliminary
12/09/24 03:54 Blood Culture - Preliminary
Blood/Venous Positive culture in progress
Gram Stain - Preliminary
12/03/24 08:20 Blood Culture - Final
Blood/Venous S aureus-Methicillin Sensitive
Gram Stain - Final
12/03/24 09:21 Blood Culture - Final
Blood/Venous S aureus-Methicillin Sensitive
Gram Stain - Final
12/03/24 08:38 Urine Culture - Final
Urine S aureus-Methicillin Sensitive
12/03/24 18:44 MRSA Screen - Final
Nose No Methicillin Resistant Staphylococcus aureus isolated.
Imaging:
12/05/24 CT a/p: Mild inflammatory change adjacent to the body and tail of the pancreas, suggestive of mild pancreatitis. No peripancreatic fluid collection appreciated. No evidence of intestinal obstruction or bowel inflammatory process. Study is
slightly limited by lack of intravenous or oral contrast. Gallbladder sludge without evidence of acute cholecystitis. No radiopaque gallstones are seen.
12/04/24 MRI brain: Numerous scattered acute infarctions in a distribution that is most suggestive of embolic phenomenon in the setting of known IV drug abuse. Multiple small microhemorrhages are also demonstrated.
12/03/24 CXR: Clear lungs.
12/03/[address]: Possible cortical petechial hemorrhages in the left frontal lobe and left occipital lobe. Possible small old infarct, periventricular small vessel ischemic disease or edema due to underlying mass in the left occipital lobe.
--- NOTE | 2024-12-11 09:59 | PTCARENOTE ---
Rec'd care of patient at 0700. Patient alert. Nodding head appropriately and following commands. Pupils sluggish, +5mm. MAEx4. Tremulous at times. NSR/ST on tele monitor. BP labile. SBP ranging from 90's-170's. Right radial dayo leveled and zeroed;
correlating with bp cuff. +2 generalized anasarca. +3 pitting edema in b/l UE and feet. Palpable pulses. #8.0 ett, 26cm @ the lip. Vent settings: A/C 20/500/5/40%. Pulse ox 99-100%. Lung sounds coarse/diminished throughout. Thick, clear secretions
suctioned from ett and mouth. Hypo BS. NGT with trickle feeds. Incontinent of liquid brown stool. FMS in place. Balderas in place for critical I/O. Output low prior to administration of daily IV Lasix. CHG bath provided and repositioned for comfort.
Right midline capped. Left DL PICC with Fentanyl/Versed/Precedex/D5W infusing. See worklist for full assessment and care.
[2024-12-11] MEDS: VANCOCIN 200 IV (10:17)
--- NOTE | 2024-12-11 10:44 | VATNOTE ---
Routine rounds: addressed non-occlusive thrombus in same vessel as PICC with clinical science liaison during ICU rounds, per clinical science liaison, OK to leave PICC for now, will follow.
--- NOTE | 2024-12-11 12:20 | PTCARENOTE ---
Systems reviewed. No major changes from prior assessment. Discussed plan with Pressure Testing Technician. Plan is to initiate Ketamine drip and wean Midazolam first, then Fentanyl as tolerated. Indwelling zambrano catheter removed. #25 condom catheter applied for
I/Os. DTV by 1700. Repeat labs ordered for 1400. No other changes.
[2024-12-11] MEDS: KETALAR 100 MG IV (12:31)
--- NOTE | 2024-12-11 14:28 | W.PN.CARDCBS ---
Addendum entered and electronically signed by Chilo Ignacio DO 12/11/24 14:52:
I saw and examined the patient.
The [place] Scientist's note was reviewed and I agree with the note.
Comment:
Plan:
Cont IV lasix diuresis
cont pulm toilet
Not currently a candidate for CT surgical intervention with comorbidities and current clinical status
Abx as per ID.
Prognosis poor.
Discussed with family at bedside.
Original Note:
Today's Communication / Plan
-
Potassium repleted and repeat labs pending
Not a CT surgery candidate at this time due to critical illness
Impression / Plan
-
Primary Director Public Policy: none prior to admission
Impression:
Presentation with change in mental status 12/03/24
Sepsis
Septic emboli by brain MRI
MSSA bacteremia
Pancreatitis
TME
VDRF
LE
Rhabdomyolysis
Elevated LFTs
Thrombocytopenia
IVDA since age 19
Vaping
Hypokalemia
ECHO 12/04/24: EF 55 to 60%, no regional wall motion abnormalities noted, no evidence of vegetation seen
KELI 12/07/24: EF 65%, large endocarditis/vegetations attached to mitral annulus measuring ~1x1cm each, mild MR, no Tricuspid or aortic vegetations
Plan:
-Patient continues with VDRF in the setting of sepsis, septic shock, TME, brain lesions concerning for embolic disease and rhabdo.
-KELI with evidence of large endocarditis/vegetations attached to the mitral annulus. CT surgery evaluated patient, but not a candidate for surgery due to critical illness presently
-ID note reviewed 12/11/24 and blood cultures clear 12/10/24
-Weight is down 2 lbs overnight with Lasix 40 mg IV daily. Patient was not taking a diuretic prior to admission
-Cre stable at 1.5 on labs reviewed by me 12/11/24
-Potassium 2.9 on 12/11/24 and was supplemented with KCl 40 meq elixir x1 plus KCl 40 meq IV x1. Repeat labs pending. Magnesium was 2.0 on 12/11/24.
-EF 55-60% by echo 12/04/24.
-Hypotension precludes addition of spironolactone as part of GDMT.
-Would not add SGLT-2 in critical illness
Progress Note - Director Public Policy
Subjective
Date of Service: December 11, 2024
Intubated and sedated
Objective
Labs:
Labs
Hgb 7.9 g/dL (13.0-18.0) L 12/11/24 03:33
Hct 23.1 % (39.0-52.0) L 12/11/24 03:33
Plt Count 279 10^3/uL (130-400) D 12/11/24 03:33
Sodium 146 mmol/L (135-145) H 12/11/24 03:33
Potassium 2.9 mmol/L (3.5-5.1) L 12/11/24 03:33
BUN 38 mg/dl (9-20) H 12/11/24 03:33
Creatinine 1.5 mg/dL (0.7-1.3) H 12/11/24 03:33
Glucose 117 mg/dl (70-99) H 12/11/24 03:33
Vital Signs and I&O:
Vital Signs
Temp Pulse Resp BP Pulse Ox
101.2 F H 75 20 109/57 100
12/11/24 11:10 12/11/24 14:00 12/11/24 14:00 12/11/24 14:00 12/11/24 14:00
Vital Signs
Temp Pulse Resp BP Pulse Ox
101.2 F H 75 20 109/57 100
12/11/24 11:10 12/11/24 14:00 12/11/24 14:00 12/11/24 14:00 12/11/24 14:00
Intake & Output
12/09/24 12/10/24 12/11/24 12/12/24
06:59 06:59 06:59 06:59
Intake Total 4565.9 / 4819.9 3932.2 / 4068.2 4380.0 / 4650.8 1996.3 / 1996.3
Output Total 4600 / 4700 4030 / 4080 2955 / 2975 1959 / 1959
Balance -34.1 / 119.9 -97.8 / -11.8 1425.0 / 1675.8 37.3 / 37.3
Physical Exam
Physical Exam
GEN: Intubated and sedated
LUNGS: Intubated and on the ventilator
CV: SR on tele
[2024-12-11 14:49] LABS: Hematocrit 21.0 % (39.0-52.0); Hemoglobin 7.3 g/dL (13.0-18.0); Mean Corp Hgb Conc. 34.8 g/dL (33.0-37.0); Mean Corpuscular Volume 85.7 fL (80.0-94.0); Platelet Count 304 10^3/uL (130-400); Red Cell Dist. Width 13.4 % (11.5-14.5)
[2024-12-11 14:55] LABS: ALT (SGPT) 19 U/L (0-50); AST (SGOT) 24 U/L (17-59); Albumin 2.1 g/dl (3.5-5.0); Alkaline Phosphatase 69 U/L (38-126); Blood Urea Nitrogen 32 mg/dl (9-20); Calcium 7.3 mg/dl (8.4-10.2); Carbon Dioxide 26 mmol/L (22-30); Chloride 114 mmol/L (98-107); Estimated Creatinine Clearance 84 ml/min; Glucose 138 mg/dl (70-99); Potassium 2.9 mmol/L (3.5-5.1); Sodium 143 mmol/L (135-145); Total Protein 5.3 g/dl (6.3-8.2); eGFR > 60.00
--- NOTE | 2024-12-11 14:59 | PTCARENOTE ---
Repeat labs reported to Sugar [employer]cker.
--- NOTE | 2024-12-11 15:54 | CM ---
Remains intubate. Poor prognosis. Discharge POC: TBD.
[2024-12-11] MEDS: VALIUM INJECTION 5 MG IV ×2 (17:21→23:49)
--- NOTE | 2024-12-11 17:37 | PTCARENOTE ---
Systems reviewed. Patient remains alert and following commands. Attempting to help with turns in bed but limited due to generalized weakness. Midazolam weaned to 1 mg/hr. Scheduled 5mg IV Valium ordered to prevent withdrawal. IVFs capped due to
correction of Na. NSR on tele. VSS. Afebrile. Unable to void post removal of zambrano. Will bladder scan per protocol. No other changes.
--- NOTE | 2024-12-11 18:27 | PTCARENOTE ---
Patient straight cath'd for 600 cc's of urine. Output color clear throughout straight cath. Towards the end, output bloody. One clot removed by catheter. Flatwork Catcher notified.
[2024-12-11] MEDS: SEROQUEL 100 MG TUBE (21:12)
[2024-12-11 21:36] LABS: Blood Urea Nitrogen 31 mg/dl (9-20); Calcium 7.4 mg/dl (8.4-10.2); Carbon Dioxide 27 mmol/L (22-30); Chloride 116 mmol/L (98-107); Estimated Creatinine Clearance 90 ml/min; Glucose 119 mg/dl (70-99); Potassium 3.6 mmol/L (3.5-5.1); Sodium 144 mmol/L (135-145); eGFR > 60.00
[2024-12-11 21:38] LABS: Hematocrit 23.4 % (39.0-52.0); Hemoglobin 8.1 g/dL (13.0-18.0); Mean Corp Hgb Conc. 34.6 g/dL (33.0-37.0); Mean Corpuscular Volume 85.4 fL (80.0-94.0); Platelet Count 388 10^3/uL (130-400); Red Cell Dist. Width 13.8 % (11.5-14.5)
[2024-12-12] VITALS (19 sets, daily range): BP systolic 117–172; BP diastolic 64–118; BMI 23.5
--- NOTE | 2024-12-12 00:40 | PTCARENOTE ---
pt reassessed. pt remains alert and follows commands/nods y/n appropriately. fent/precedex/ketamine gtts continue. restraints in place. CHG bath and oral care provided. vent settings unchanged. NGT and FMS in place, TF infusing. pt straight cath for
550ml patti urine. extremities elevated on pillows. care ongoing.
[2024-12-12] MEDS: PRECEDEX 100 IV ×6 (01:10→20:41)
--- NOTE | 2024-12-12 02:23 | DOWNTIME ---
There was a [employer] Client Director Targeted [employer] Downtime on 12/12/2024 from 0100 to 12/12/2024 at 0220. Downtime documentation of patient's care, including medication administrations, has been reconciled in the electronic record per guidelines. Refer to the
patient's paper chart under the miscellaneous tab to see printed paper medication records and downtime forms.
[2024-12-12] MEDS: SUBLIMAZE 50 MCG IV (02:42)
[2024-12-12 03:30] LABS: B.E. 3.8 mmol/L; HCO3 27.7 mmol/L (21-28); O2 Saturation % 99.4 % (94-98); PCO2 38 mmHg (35-48); PO2 158 mmHg (83-108)
[2024-12-12 03:31] LABS: Hematocrit 21.5 % (39.0-52.0); Hemoglobin 7.4 g/dL (13.0-18.0); Mean Corp Hgb Conc. 34.4 g/dL (33.0-37.0); Mean Corpuscular Volume 86.3 fL (80.0-94.0); Platelet Count 373 10^3/uL (130-400); Red Cell Dist. Width 13.9 % (11.5-14.5)
[2024-12-12 03:52] LABS: Blood Urea Nitrogen 31 mg/dl (9-20); Calcium 7.7 mg/dl (8.4-10.2); Carbon Dioxide 28 mmol/L (22-30); Chloride 118 mmol/L (98-107); Estimated Creatinine Clearance 90 ml/min; Glucose 113 mg/dl (70-99); Lipase 836 U/L (23-300); Magnesium 2.0 mg/dl (1.6-2.3); Potassium 3.9 mmol/L (3.5-5.1); Sodium 147 mmol/L (135-145); Triglycerides 295 mg/dl (10-149); eGFR > 60.00
[2024-12-12] MEDS: SUBLIMAZE 100 IV (04:44)
[2024-12-12] MEDS: NAFCIL 108 MG IV ×6 (04:53→23:26)
--- NOTE | 2024-12-12 06:07 | PTCARENOTE ---
AM labs sent. neuro status unchanged, fent/precedex/ketamine gtts continue. oral care provided. pt straight cath'd again this morning. care ongoing.
[2024-12-12] MEDS: VALIUM INJECTION 5 MG IV ×2 (07:43→21:09)
[2024-12-12] MEDS: PROTONIX IV 40 MG IV (07:51)
[2024-12-12] MEDS: TYLENOL ORAL SOLUTION 650 MG TUBE (07:51)
[2024-12-12] MEDS: LASIX 40 MG IV (07:51)
[2024-12-12] MEDS: NSS (PRESERVATIVE FREE) 10 ML IV (07:51)
[2024-12-12] MEDS: SEROQUEL 50 MG TUBE (07:52)
[2024-12-12] MEDS: LOW STRENGTH ASPIRIN 81 MG TUBE (07:52)
[2024-12-12] MEDS: THIAMINE INJECTION 100 MG IV (07:52)
[2024-12-12] MEDS: HEPARIN 5000 UNITS SC ×2 (07:53→19:19)
[2024-12-12] MEDS: MIRALAX TUBE (07:54)
--- NOTE | 2024-12-12 07:59 | W.PN.INTV ---
Today's Communication / Plan
Recommendations
Continue Precedex + ketamine drips
Wean off of fentanyl drip
SBT today with plan to extubate
Continue ABx per ID; will need extended course with eventual visit with CT surgery as an outpatient assuming he continues to be abstinent from IVDU
If extubated, HOSPICE ADMITTING CLERK eval will be needed
If extubated and passes HOSPICE ADMITTING CLERK eval, will start micro�dosing of Subutex with additional supportive care medications
Recheck LUE duplex US tomorrow to assess for DVT propagation, as patient remains off systemic AC
Continue chemical DVT prophylaxis
Continue slow wean off benzodiazepines with Valium, weaning to off in the next 2 � 3 days
Continue ICU level of care for this critically ill patient
Assessment
-
39-year-old male with history of polysubstance abuse, presents with 4 days of fevers, progressive 2 days of tremors, nausea/emesis on day of admission found to have confusion, suspected sepsis, multiple brain lesions, transaminitis, rhabdomyolysis.
Patient treated with IV antibiotics, IV fluids, withdrawal protocol with Dilaudid, buprenorphine in the ED. Also found to have prolonged QT. Admitted to ICU for further management. Required intubation and mechanical ventilation starting 12/03.
Conditions present prior to admission
History of MRSA bacteremia 2010
Right forearm abscess
Right mandibular fracture 2010
Status post closed reduction
Assessment and plan
#1. Polysubstance drug use with severe sepsis, MSSA/MRSA bacteremia and mitral valve endocarditis
- Suspect embolic intracranial cortical petechial hemorrhages, also developed [place] lesions on his hands
- ID service on case, currently on IV nafcillin and IV vancomycin, some diagnostic uncertainty about MSSA vs MRSA vs combination of both
- CT surgery on case, patient not currently felt to be a surgical candidate due to critical illness
- Continue to monitor temperature -last fever was yesterday AM to 101.2 �F. Blood cultures collected on 12/11 as well as overnight, showing NGTD
- He will need prolonged antibiotics, defer duration to ID
#2. Acute toxic metabolic encephalopathy, ?seizures
- Encephalopathy markedly improved as of 12/11
- Related to severe sepsis, lactic acidosis, MRSA bacteremia as well as intracranial petechial hemorrhages
- Numerous scattered acute infarctions with multiple small microhemorrhages confirmed on MRI. Aspirin 81 mg started per neurology service
- Patient required intubation on 12/03 due to worsening encephalopathy
- Previously had episodes of tremulousness with ventilator asynchrony, tachypnea and desaturation. Concerning for seizure, however both cerebellar and subsequent EEG negative. Presentation more likely related to withdrawal.
- No seizure-like activity as of 12/11
- Follow-up CT head unchanged
- 12/08, machine clothing replacer patient developed withdrawal/seizure-like activity and was given 1 dose of Keppra. Portable bedside EEG with Cerribell was started, no seizure activity noted, additional dosing held.
- 12/10, intermittent more lucid intervals observed. Minimize polypharmacy, discontinue clonidine and tizanidine. Add Precedex infusion and attempt to wean ketamine and Versed.
- Patient remains on very high dose of fentanyl drip; versed gtt has now been weaned off s/p ketamine drip restarted on 12/11; continue Precedex + ketamine infusions in an effort to wean off fentanyl drip; if patient is extubated, would completely
wean off ketamine drip and start buprenorphine micro-dosing protocol, assuming he can swallow safely (will need HOSPICE ADMITTING CLERK evaluation)
- Would start valium with prn doses while weaning off Versed drip to avoid benzodiazepine withdrawal/withdrawal seizure
- Continue to wean down on Valium
- If not extubated today then will do ASV
#3. Lactic acidosis - resolved
- Due to MSSA bacteremia and severe sepsis
- Resolved with IV hydration
#4. Acute renal insufficiency, hypernatremia
- Serum sodium improved on D5W, however serum Na now starting to rise again
- Stop lasix as CXR today shows no evidence of pulmonary edema
- Continue tube feeding with free water, monitor electrolytes; if patient is extubated then would encourage PO intake/free water intake assuming he passes HOSPICE ADMITTING CLERK evaluation
- Monitor UOP and trend sCr, strict I/O
#5. Acute transaminitis and Acute rhabdomyolysis (in the setting of severe sepsis, polysubstance drug use)
- LFTs have now normalized as of 12/10
- Previously, IVF with LR stopped as patient developed anasarca, diuresis initiated
#6. Polysubstance abuse
- DC'd clonidine and tizanidine, buprenorphine protocol when able to take p.o.
- Continue empiric thiamine replacement
-Wean down on fentanyl + Versed drips, resuming ketamine infusion today (12/11), continue Precedex drip to help wean down sedation
- Continue Seroquel 50mg in the morning and 100mg at night
#7. QT prolongation
- Suspect in the setting of electrolyte imbalance
- Follow-up EKG shows improving QTc
- EKG from 12/10 showed QTc 478ms
- Replete K>4, Mg>2, and PO4>3
#8. Vomiting, Acute pancreatitis
- Elevated lipase noted - 601 on 12/06/2024
- Continue to trend lipase levels until <500
- Trophic postpyloric feeding started 12/08
#9.Elevated Triglycerides
- Propofol infusion discontinued on 12/05, monitor for now
- Follow-up levels improved
- No additional follow-up TG labs needed
#10.LUE DVT involving brachial vein
- Given his multiple scattered acute infarctions with microhemorrhages, patient is high risk for ICH if systemic anticoagulation started
- Monitor with serial duplex US to assure no propagation of left brachial vein clot - re-check LUE duplex US tomorrow
- Currently left-sided PICC line has blood return and is able to flush, hence no need to remove at this time
#11. Acute respiratory failure with hypoxia on mechanical ventilation
- Continue with mechanical ventilation with daily SAT/SBT if clinically appropriate --> plan to do weaning trial today and hopefully can extubate
- Maintain plateau pressure <30 and titrate FiO2 + PEEP to keep SpO2 >90-94%
- Continue aspiration precautions; keep HOB >30-45�
- prn nebulized bronchodilators - not currently bronchospastic
- Oropharyngeal + deep ETT suctioning with subglottic as needed
- Daily CXR + blood gas
- Daily vent adjustments as needed based on blood gas and SaO2
- Low level of sedation with goal RASS as 0 to -2
Lines:
LUE PICC line
RUE Midline
DVT prophylaxis, Continue subcu heparin. GI prophylaxis with IV PPI.
Continue ICU level of care for this critically ill patient.
Critical care statement: A total of 37 minutes of critical care time was provided for this patient today. This includes management of unstable vital signs, evaluation of the patient at bedside, reviewing the patient�s pertinent medical records
including radiographs, microbiology, laboratory evaluations, and��discussion with primary team, consultants, pharmacy, nutrition, physical therapy, case management, charge nurse, critical care nursing, and respiratory therapy.
Subjective Dataa
Subjective Data
Date of Service:
Date of Service: December 12, 2024
Chief Complaint: Care Rep Follow Up
Subjective:
Pt seen and evaluated this AM. Currently on fentanyl at 175 mcg/hr, has been off versed gtt, and on Precedex at 1.4 mcg/kg/hr. He is wide awake. QTc this AM is 388ms. HR 109, BP 119/77. Currently intubated on AC/CMV at 20/500/5/40%, with PIP 20
cmH2O, VTe 614 mL and breathing at 20 breaths/minute. BP via A-line 129/71. Saturating 99%. Parents both at bedside and all questions were answered.
Review of Systems
General: Other (Unable to obtain as patient is intubated)
Objective Data
Data Reviewed
Vital Signs / I&O / Oxygen:
Vital Signs
Temp Pulse Resp BP Pulse Ox
100.2 F 103 21 138/84 100
12/12/24 08:08 12/12/24 07:51 12/12/24 07:00 12/12/24 07:51 12/12/24 07:53
Intake and Output
12/11/24 12/12/24 12/13/24
06:59 06:59 06:59
Intake Total 4380.0 / 4650.8 4365.3 / 4417.8 52.5 / 52.5
Output Total 2955 / 2975 3360 / 3360
Balance 1425.0 / 1675.8 1005.3 / 1057.8 52.5 / 52.5
SaO2 [A/C] 100
SaO2 100
Physical Exam
General: Respiratory Distress (negative), Comfortable, Chills (negative) and Sweats (negative)
HEENT: Normocephalic, Anicteric and Other (ETT in place)
Cardiovascular: S1-S2 and Peripheral Edema (+2 lower extremity pitting edema bilaterally)
Respiratory: Wheeze (negative), Rhonchi (negative), Non-Labored Respirations, Stridor (negative), Other (Coarse breath sounds heard bilaterally) and Other (Mechanical breath sounds heard bilaterally)
GI: Soft, Non Distended, Non Tender and Normal Bowel Sounds
Neurology: Awake, Alert, Tremors (negative) and Other (following all commands)
Skin: Warm, Dry, Cyanosis (negative) and Jaundice (negative)
Labs/Micro/Reports
Lab Data
12/12/24 03:10
12/12/24 03:10
Laboratory Results
12/12/24
03:10
pH 7.47 H
pCO2 38
pO2 158 H
HCO3 27.7
O2 Delivery Level
Microbiology
12/09/24 03:54 Blood/Venous Blood Culture - Preliminary
Staph aureus MRSA
12/09/24 03:54 Blood/Venous Gram Stain - Preliminary
12/10/24 03:14 Blood/Venous Blood Culture - Preliminary
No Growth in 24 hours- Final report to follow
12/08/24 03:02 Blood/Venous Blood Culture - Preliminary
Staph aureus MRSA
12/08/24 03:02 Blood/Venous Gram Stain - Preliminary
12/07/24 04:06 Blood/Venous Blood Culture - Preliminary
Staph aureus MRSA
12/07/24 04:06 Blood/Venous Gram Stain - Preliminary
12/05/24 16:46 Blood/Venous Blood Culture - Preliminary
Staph aureus MRSA
12/05/24 16:46 Blood/Venous Gram Stain - Preliminary
12/05/24 13:38 Blood/Venous Blood Culture - Preliminary
Staph aureus MRSA
12/05/24 13:38 Blood/Venous Gram Stain - Preliminary
--- NOTE | 2024-12-12 08:54 | W.PN.CARDCBS ---
Today's Communication / Plan
-
-Blood cultures negative as of 12/10. ID following, repeat cultures pending.
-Abx as per ID
-Not currently a candidate for CT surgical intervention with comorbidities and current clinical status
-Weight is stable with Lasix 40 mg IV daily. Patient was not taking a diuretic prior to admission. Continue diuretic as needed to keep even fluid balance.
-Cr improving.
-EF 55-60% by echo 12/04/24.
Cont pulm toilet
Impression / Plan
-
Primary Product Safety Professional: none prior to admission
Impression:
Presentation with change in mental status 12/03/24
Sepsis
Septic emboli by brain MRI
MSSA bacteremia
Pancreatitis
TME
VDRF
LE
Rhabdomyolysis
Elevated LFTs
Thrombocytopenia
IVDA since age 19
Vaping
Hypokalemia
ECHO 12/04/24: EF 55 to 60%, no regional wall motion abnormalities noted, no evidence of vegetation seen
KELI 12/07/24: EF 65%, large endocarditis/vegetations attached to mitral annulus measuring ~1x1cm each, mild MR, no Tricuspid or aortic vegetations
Plan:
-History: Patient continues with VDRF in the setting of sepsis, septic shock, TME, brain lesions concerning for embolic disease and rhabdo.
-KELI with evidence of large endocarditis/vegetations attached to the mitral annulus. CT surgery evaluated patient, but not a candidate for surgery due to critical illness presently
-Blood cultures negative as of 12/10. ID following, repeat cultures pending.
-Abx as per ID
-Not currently a candidate for CT surgical intervention with comorbidities and current clinical status
-Weight is stable with Lasix 40 mg IV daily. Patient was not taking a diuretic prior to admission. Continue diuretic as needed to keep even fluid balance.
-Cr improving.
-EF 55-60% by echo 12/04/24.
Cont pulm toilet
Progress Note - Product Safety Professional
Subjective
Date of Service: December 12, 2024
Pt seen and examined. sedated on vent.
Objective
Labs:
12/12/24 03:10
12/12/24 03:10
Labs
Hgb 7.4 g/dL (13.0-18.0) L 12/12/24 03:10
Hct 21.5 % (39.0-52.0) L 12/12/24 03:10
Plt Count 373 10^3/uL (130-400) 12/12/24 03:10
Sodium 147 mmol/L (135-145) H 12/12/24 03:10
Potassium 3.9 mmol/L (3.5-5.1) 12/12/24 03:10
BUN 31 mg/dl (9-20) H 12/12/24 03:10
Creatinine 1.3 mg/dL (0.7-1.3) 12/12/24 03:10
Glucose 113 mg/dl (70-99) H 12/12/24 03:10
Vital Signs and I&O:
Vital Signs
Temp Pulse Resp BP Pulse Ox
100.2 F 103 21 138/84 100
12/12/24 08:08 12/12/24 07:51 12/12/24 07:00 12/12/24 07:51 12/12/24 07:53
Vital Signs
Temp Pulse Resp BP Pulse Ox
100.2 F 103 21 138/84 100
12/12/24 08:08 12/12/24 07:51 12/12/24 07:00 12/12/24 07:51 12/12/24 07:53
Intake & Output
12/10/24 12/11/24 12/12/24 12/13/24
06:59 06:59 06:59 06:59
Intake Total 3932.2 / 4068.2 4380.0 / 4650.8 4365.3 / 4417.8 52.5 / 52.5
Output Total 4030 / 4080 2955 / 2975 3360 / 3360
Balance -97.8 / -11.8 1425.0 / 1675.8 1005.3 / 1057.8 52.5 / 52.5
Physical Exam
Physical Exam
General: sedated on vent
Neck: Negative JVD
Heart: Regular, Negative S3 positive S1/S2, Negative S4, No murmur
Lungs: CTA b/l, negative wheezes/rales/rhonchi
Abd: Positive BS, NT/ND, neg rebound/rigidity/guarding
Ext: Negative cyanosis/clubbing/edema
Neuro: nonfocal
[2024-12-12] MEDS: KETALAR 100 MG IV (09:21)
--- NOTE | 2024-12-12 09:37 | W.PN.ID1 ---
Date of Service
Date of Service: December 12, 2024
Today's Communication
Continue Vancomycin and nafcillin.
Assessment / Plan
# Complicated sustained Staphylococcus aureus (MRSA/MSSA) bacteremia
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
# Multiple embolic CVA
# s/p New Seizure
# Fever; persists
# Leukocytosis; resolved
# Intubated 12/03, weaning from vent
# LE, stable
# Polysubstance abuse (cocaine and fentanyl skin/muscle popper)
# hx MRSA wound abscesses (2010)
# hx of Viridans strep bacteremia (2010)
- Patient not surgical candidate at this time, as per CTS.
- Repeat blood culture negative x 24 hrs (12/10/24)
- Repeat blood cultures until persistently clear
- Discussed with microbiology and S. aureus experts.
There is discrepancy between blood cx PCR identified as MRSA and phenotype - identified as MSSA
Cefoxitin induced test negative. PBP2a negative.
Best to treat as both MRSA and MSSA.
-> Continue IV Vancomycin and Nafcillin 2g IV q4h (both crosses blood-brain barrier)
Monitor renal function and LFT's while on nafcillin.
- Trend temps.
Chief Complaint
-: Clinical Sepsis, Bacteremia and Other (embolic CVA)
Subjective / Review of Systems
Pt awake on vent. Alert and able to answer questions.
Vital Signs / Physical Exam
Vital Signs
Vital Signs
Temp Pulse Resp BP Pulse Ox
100.2 F 103 21 138/84 100
12/12/24 08:08 12/12/24 07:51 12/12/24 07:00 12/12/24 07:51 12/12/24 07:53
Physical Exam
Constitutional: Acutely Ill
Eyes: No Conjunctival Hemorrhage and Sclera Anicteric
Cardiovascular: S1/S2 and Other (tachycardic)
Pulmonary: Clear
Gastrointestinal: Soft, Distended and Non Distended
Genito-Urinary: Balderas and Clear Urine
Extremities: Negative Edema
Neurological: Awake and Alert
Objective Data
Lab Data
Lab Results
12/12/24 03:10
12/12/24 03:10
Estimated Creat Clear 90 ml/min 12/12/24 03:10
Lactic Acid 1.3 mmol/L (0.7-2.0) 12/05/24 16:46
Total Bilirubin 0.8 mg/dl (0.2-1.3) 12/11/24 14:11
AST 24 U/L (17-59) 12/11/24 14:11
ALT 19 U/L (0-50) 12/11/24 14:11
Alkaline Phosphatase 69 U/L (38-126) 12/11/24 14:11
Amylase 139 U/L (30-110) H 12/05/24 04:04
Most recent labs reviewed.
Micro Results:
12/12/24 03:10 Blood Culture - Pending
Blood/Venous
12/09/24 03:54 Blood Culture - Preliminary
Blood/Venous Staph aureus MRSA
Gram Stain - Preliminary
12/11/24 03:33 Blood Culture - Pending
Blood/Venous
12/10/24 03:14 Blood Culture - Preliminary
Blood/Venous No Growth in 24 hours- Final report to follow
12/08/24 03:02 Blood Culture - Preliminary
Blood/Venous Staph aureus MRSA
Gram Stain - Preliminary
12/07/24 04:06 Blood Culture - Preliminary
Blood/Venous Staph aureus MRSA
Gram Stain - Preliminary
12/05/24 16:46 Blood Culture - Preliminary
Blood/Venous Staph aureus MRSA
Gram Stain - Preliminary
12/05/24 13:38 Blood Culture - Preliminary
Blood/Venous Staph aureus MRSA
Gram Stain - Preliminary
12/03/24 08:20 Blood Culture - Final
Blood/Venous S aureus-Methicillin Sensitive
Gram Stain - Final
12/03/24 09:21 Blood Culture - Final
Blood/Venous S aureus-Methicillin Sensitive
Gram Stain - Final
12/03/24 08:38 Urine Culture - Final
Urine S aureus-Methicillin Sensitive
12/03/24 18:44 MRSA Screen - Final
Nose No Methicillin Resistant Staphylococcus aureus isolated.
Imaging:
12/05/24 CT a/p: Mild inflammatory change adjacent to the body and tail of the pancreas, suggestive of mild pancreatitis. No peripancreatic fluid collection appreciated. No evidence of intestinal obstruction or bowel inflammatory process. Study is
slightly limited by lack of intravenous or oral contrast. Gallbladder sludge without evidence of acute cholecystitis. No radiopaque gallstones are seen.
12/04/24 MRI brain: Numerous scattered acute infarctions in a distribution that is most suggestive of embolic phenomenon in the setting of known IV drug abuse. Multiple small microhemorrhages are also demonstrated.
12/03/24 CXR: Clear lungs.
12/03/[address]: Possible cortical petechial hemorrhages in the left frontal lobe and left occipital lobe. Possible small old infarct, periventricular small vessel ischemic disease or edema due to underlying mass in the left occipital lobe.
Care Review
Plan reviewed with: Nurse and Other (ID pharmacist Karli Hirsch)
--- NOTE | 2024-12-12 10:17 | PHA.VAN.FU ---
Vancomycin Assessment / Plan
- Assessment
Renal Function: Stable
WBC's are: WNL
In the past 24 hrs, patient has been: Febrile
Concomitant Antimicrobials: nafcillin
- Assessment - Therapeutic Drug Monitoring
Random Level: 13.4 - drawn ~17H after previous dose of 1000mg
- Dosing Plan
Dosing by Level: Re-dose today (Vanc 1250mg - trial of increased dosing with improving renal function)
- Monitoring Plan
Random Level: 12/13 06
- Follow Up
Pharmacy will continue to follow.
Vancomycin Follow UP
- -
Patient Age: 39
Patient Sex: Male
Vancomycin Day #: 10
Indication: Bacteremia
Requesting Provider: Dr. Fofana / Teto
Pertinent Antimicrobial Allergies:
NKDA
Height / Weight:
Height 6 ft 2 in
Actual Weight 83 kg
IBW in k.2
Pertinent Past Medical History: IV JOCELIN
- Vital Signs / Lab Results
Temp Pulse Resp BP Pulse Ox
100.2 F 103 21 138/84 100
12/12/24 08:08 12/12/24 07:51 12/12/24 07:00 12/12/24 07:51 12/12/24 07:53
Lab Results - Hematology
12/10/24 12/11/24 12/11/24
03:14 03:33 14:11
WBC 13.8 H 8.2 7.9
12/11/24 12/12/24
21:06 03:10
WBC 10.1 8.2
Lab Results - Chemistry
12/10/24 12/11/24 12/11/24
03:14 03:33 14:11
BUN 51 H 38 H 32 H
Creatinine 1.5 H 1.5 H 1.4 H
Estimated Creat Clear 78 78 84
Albumin 2.6 L 2.2 L 2.1 L
12/11/24 12/12/24
21:06 03:10
BUN 31 H 31 H
Creatinine 1.3 1.3
Estimated Creat Clear 90 90
Albumin
Microbiology Results
12/09/24 03:54 Blood Culture - Preliminary
Blood/Venous Staph aureus MRSA
Gram Stain - Preliminary
12/10/24 03:14 Blood Culture - Preliminary
Blood/Venous No Growth in 24 hours- Final report to follow
12/08/24 03:02 Blood Culture - Preliminary
Blood/Venous Staph aureus MRSA
Gram Stain - Preliminary
12/07/24 04:06 Blood Culture - Preliminary
Blood/Venous Staph aureus MRSA
Gram Stain - Preliminary
12/05/24 16:46 Blood Culture - Preliminary
Blood/Venous Staph aureus MRSA
Gram Stain - Preliminary
12/05/24 13:38 Blood Culture - Preliminary
Blood/Venous Staph aureus MRSA
Gram Stain - Preliminary
Therapeutic Drug Monitoring
Random Vancomycin 13.4 ug/ml 12/12/24 03:10
[2024-12-12] MEDS: VANCOCIN 275 MG IV (10:25)
--- NOTE | 2024-12-12 12:14 | PTCARENOTE ---
updated assessment, vital sign trends ongoing and as documented. continue progressive wean of sedation, progressive wean from ventilator. Update drip trends with pharmacy. Respiratory cares team in and out at bedside with nursing thru am weans.
Update at bedside with preparation center coordinator team, cardiology and morning rounds with critical care team. Family at bedside thru am, updated plan of cares, progress in icu, and continue with teaching as needed.
[2024-12-12 12:55] LABS: B.E. 3.2 mmol/L; HCO3 26.8 mmol/L (21-28); O2 Saturation % 100.0 % (94-98); PCO2 36 mmHg (35-48); PO2 153 mmHg (83-108)
--- NOTE | 2024-12-12 13:17 | RESPNOTE ---
Respiratory: patient extubated without incident, no stridor no wheeze.
--- NOTE | 2024-12-12 13:48 | PTCARENOTE ---
Patient extubated. Follow up aerosol mask wean of fio2 await respiratory team. Continue oral cares skin cares. Working with pharmacy to wean of drips and transition to po medications. Await speech therapy team for evaluation and update if able to
start po. Critical care nursing at bedside.
--- NOTE | 2024-12-12 14:20 | W.PN.HOSP.TC ---
Today's Communication/Plan
-
Patient remains critically ill in the ICU.
Patient not a surgical candidate.
Repeat blood culture remains positive.
Continue vancomycin/nafcillin
Assessment / Plan
Assessment / Plan
Impression:
Patient is a 39-year-old male with a medical history of polysubstance abuse (skin popping with fentanyl) who was admitted after presentation with altered mental status. He was brought in by his parents with tremors and confusion. His mental status
abruptly declined and he was intubated for airway protection. CT brain showed possible left occipital lobe mass. His blood cultures are positive for MRSA. He is currently being managed in the ICU for treatment of encephalopathy and bacteremia.
Assessment/plan:
Septic shock secondary to MRSA/MSSA bacteremia:
- Remains on vasopressors
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
- Still persistently febrile, leukocytosis improving
- Transesophageal echocardiogram 12/06 showed large mitral annulus vegetation
- No current plans for cardiothoracic surgery due to critical illness
- ID following, continue antibiotics with vancomycin and nafcillin, repeat cultures still positive
Acute toxic metabolic encephalopathy:
- Cautiously weaning ketamine and Versed drips and transitioning to Precedex, eyes open this morning and able to follow simple commands
- Continue EEG monitoring, no acute epileptiform activity captured
- Encephalopathy likely multifactorial due to bacteremia, opiate withdrawal, and and suspected septic emboli to brain
- MRI brain consistent with suspicion for septic emboli, repeat CT brain shows stable findings
- Continue mechanical ventilation for airway protection, vent management per phosphoric acid supervisor
- Seroquel dose increased to 50 mg daily and 100 mg at night
- Will titrate down on opiate withdrawal medications as able
LE:
- Creatinine 1.5 today, baseline appears less than 1
- Suspect related to rhabdomyolysis and shock
- Continuing IV fluids with D5W
Hypokalemia:
- Mild, replete
- Monitor
Rhabdomyolysis:
- Continue IV fluids
Elevated LFTs:
- Suspect due to severe sepsis
- Resolved, monitor with treatment as above
Pancreatitis:
- Elevated lipase, CT imaging with evidence of pancreatic inflammation
- Triglycerides elevated but improving, discontinued propofol for sedation, trend triglyceride levels
- Currently tolerating tube feeds
Lactic acidosis:
- Resolved, continue to monitor
Polysubstance abuse:
- Long history of injection drug abuse
- Titrate clonidine and tizanidine, Versed and ketamine drips as able
- Can initiate buprenorphine treatment when tolerating p.o.
CODE STATUS: Full code
DVT prophylaxis: SCDs
Diet: Jevity tube feeding
Family confusion: Discussed with mother and sister at bedside.
Total time spent on today's encounter was 75 minutes which included time spent in counseling the patient/family regarding diagnosis and treatment plan as listed above, goals of care, and symptom management. Case was discussed with nursing staff,
specialists, and care coordinators/case management. All labs and imaging personally reviewed by me. Remainder the time spent in detailed review of previous records, lab data, imaging, and other medical provider documentation.
Anticipated Discharge: > 48 hours
Subjective/Interval History
-
Date of Service: December 12, 2024
Still intubated but more awake and follow commands
Objective Data
-
Labs:
Laboratory Results
12/12/24 12/12/24
03:10 12:52
WBC 8.2
Hgb 7.4 L
Hct 21.5 L
Plt Count 373
HCO3 27.7 26.8
Sodium 147 H
Potassium 3.9
Chloride 118 H
Carbon Dioxide 28
BUN 31 H
Creatinine 1.3
Glucose 113 H
Calcium 7.7 L
Vital Signs:
Vital Signs
Temp Pulse Resp BP Pulse Ox
99.8 F 105 26 135/92 98
12/12/24 12:21 12/12/24 12:43 12/12/24 12:43 12/12/24 12:00 12/12/24 13:47
I&O
12/11/24 12/12/24 12/13/24
06:59 06:59 06:59
Intake Total 4380.0 / 4650.8 4365.3 / 4417.8 1113.3 / 1113.3
Output Total 2955 / 2975 3360 / 3360 1600 / 1600
Balance 1425.0 / 1675.8 1005.3 / 1057.8 -486.7 / -486.7
Physical Exam
-
General: Intubated
HEENT: Normocephalic and Atraumatic
Respiratory: Rales, Rhonchi and Crackles
Cardiac: Tachycardic
Breast: Deferred by me
GI: Soft, Nontender, Nondistended and Normal Bowel Sounds
Genito-urinary: No Costovertebral Tender
Musculoskeletal: No Clubbing, No Cyanosis and No Edema
Skin: Warm
Neuro: Sedated
Psych: Other (Sedated)
Data Reviewed
-
Diagnostic Radiology: Image personally visualized and interpreted and Report Reviewed by me
CT Scan: Image personally visualized and interpreted and Report Reviewed by me
Ultrasound: Image personally visualized and interpreted and Report Reviewed by me
MRI: Image personally visualized and interpreted and Report Reviewed by me
Medical Tests (Nuc Med, Echo etc): Image personally visualized and interpreted and Report Reviewed by me
Labs: Labs Reviewed by me
Old Records: Reviewed
--- NOTE | 2024-12-12 15:41 | PTOTSP ---
Dysphagia Evaluation
Patient is at an acute elevated risk for dysphagia given admission with septic shock secondary to MRSA/MSSA bacteremia with a prolonged intubation (10 days) with subsequent aphonia, generalized weakness/prolonged disuse of swallowing muscles, and
findings of numerous scattered acute infarcts. Patient is at an elevated risk for complications from aspiration due to current compromised health status, poor state of dentition, and weak cough effort.
Recommend:
1. Temporary NPO
2. Medications via non-oral means
3. Aspiration Risk Hydration Protocol - sparing ice chips after oral care
4. TENSION WORKER f/u to determine if/when patient able to initiate oral PO and/or when instrumental testing such as FEES appropriate
5. Speech/language/cognitive evaluation
[2024-12-12] MEDS: DILAUDID 2 MG IV ×3 (16:31→23:26)
[2024-12-12] MEDS: SEROQUEL TUBE (21:07)
[2024-12-13] VITALS (25 sets, daily range): BP systolic 124–170; BP diastolic 74–116; BMI 23.4
[2024-12-13] MEDS: PRECEDEX 100 IV ×4 (01:10→15:47)
[2024-12-13] MEDS: DILAUDID 2 MG IV ×3 (04:14→11:03)
[2024-12-13] MEDS: NAFCIL 108 MG IV ×6 (04:14→23:38)
--- NOTE | 2024-12-13 04:44 | PTCARENOTE ---
AM labs sent. pt reassessed. remains oriented x3, denies CP/pain/SOB. ST on monitor. b/l UE and LE with pitting edema, elevated on pillows. on RA. increased amt of secretions, coughing up sputum encouraged, oral care provided frequently. FMS removed
due to consistent leaking around tube. pt remains NPO. uses urinal with assist. precedex gtt continues. CHG bath provided. call cintron in reach.
[2024-12-13 04:50] LABS: Hematocrit 24.0 % (39.0-52.0); Hemoglobin 8.2 g/dL (13.0-18.0); Mean Corp Hgb Conc. 34.2 g/dL (33.0-37.0); Mean Corpuscular Volume 86.0 fL (80.0-94.0); Nucleated Red Blood Cells % 0 % (-); Platelet Count 627 10^3/uL (130-400); Red Cell Dist. Width 14.0 % (11.5-14.5)
[2024-12-13 05:06] LABS: ALT (SGPT) 19 U/L (0-50); AST (SGOT) 26 U/L (17-59); Albumin 2.5 g/dl (3.5-5.0); Alkaline Phosphatase 70 U/L (38-126); Blood Urea Nitrogen 26 mg/dl (9-20); Calcium 7.9 mg/dl (8.4-10.2); Carbon Dioxide 28 mmol/L (22-30); Chloride 119 mmol/L (98-107); Estimated Creatinine Clearance 90 ml/min; Glucose 91 mg/dl (70-99); Magnesium 2.0 mg/dl (1.6-2.3); Potassium 3.3 mmol/L (3.5-5.1); Sodium 149 mmol/L (135-145); Total Protein 6.3 g/dl (6.3-8.2); eGFR > 60.00
[2024-12-13] MEDS: KCL 100 IV (06:01)
[2024-12-13] MEDS: NSS (PRESERVATIVE FREE) 10 ML IV (07:22)
[2024-12-13] MEDS: APRESOLINE 5 MG IV ×2 (07:22→14:09)
[2024-12-13] MEDS: PROTONIX IV 40 MG IV (07:22)
[2024-12-13] MEDS: HEPARIN 5000 UNITS SC ×3 (07:23→23:42)
[2024-12-13] MEDS: THIAMINE INJECTION 100 MG IV (07:23)
[2024-12-13] MEDS: VALIUM INJECTION 5 MG IV ×2 (07:23→20:16)
--- NOTE | 2024-12-13 07:55 | PTCARENOTE ---
Assumed care of pt from research associate professor QUIN. AAOx3Daniel ST on tele, HRs 100s-120s. SpO2 97% on room air. Pt with moist productive cough. Oral care and suctioning provided. BP 166/111. PRN Hydral given for systolic > 160 (see JUL). B/L UE and LE still with
pitting edema, remain elevated at this time. Pt remains NPO, except for sparring ice chips. HOB > 30 degrees. Awaiting clearance from SHIP ENGINEER for diet and oral meds. Precedex gtt remains at 1mcg/kg/hr. Pt resting in bed, call cintron in reach.
--- NOTE | 2024-12-13 08:18 | W.PN.INTV ---
Today's Communication / Plan
Recommendations
Continue Precedex drip
Start clonidine in an effort to wean off Precedex infusion
Start microdosing Subutex with scheduled oxycodone
Continue ABx per ID; will need extended course with eventual visit with CT surgery as an outpatient assuming he continues to be abstinent from IVDU
Blood cultures collected yesterday are now positive � follow-up species
Repeat LUE duplex US today shows stable brachial DVT - continue to monitor off systemic AC
Continue chemical DVT prophylaxis
Continue slow wean off benzodiazepines with Valium, weaning to off by today
Continue ICU level of care for this critically ill patient; once fully weaned off Precedex infusion, then can transfer out of ICU that time to telemetry; once he is downgraded then we will sign off
Assessment
-
39-year-old male with history of polysubstance abuse, presents with 4 days of fevers, progressive 2 days of tremors, nausea/emesis on day of admission found to have confusion, suspected sepsis, multiple brain lesions, transaminitis, rhabdomyolysis.
Patient treated with IV antibiotics, IV fluids, withdrawal protocol with Dilaudid, buprenorphine in the ED. Also found to have prolonged QT. Admitted to ICU for further management. Required intubation and mechanical ventilation starting 12/03.
Conditions present prior to admission
History of MRSA bacteremia 2010
Right forearm abscess
Right mandibular fracture 2010
Status post closed reduction
Assessment and plan
#1. Polysubstance drug use with severe sepsis, MSSA/MRSA bacteremia and mitral valve endocarditis
- Suspect embolic intracranial cortical petechial hemorrhages, also developed Janeway lesions on his hands
- ID service on case, currently on IV nafcillin and IV vancomycin, some diagnostic uncertainty about MSSA vs MRSA vs combination of both
- CT surgery on case, patient not currently felt to be a surgical candidate due to critical illness
- Continue to monitor temperature -last fever was on 12/11 to 101.2 �F. Blood cultures collected on 12/11 show NGTD; unfortunately blood cultures collected 12/12 are now positive � follow-up species
- He will need prolonged antibiotics, defer duration to ID
- Plan to repeat echo tomorrow
#2. Acute toxic metabolic encephalopathy, ?seizures
- Encephalopathy markedly improved as of 12/11; and as of 12/13, his mental status is now back to normal
- Related to severe sepsis, lactic acidosis, MRSA bacteremia as well as intracranial petechial hemorrhages
- Numerous scattered acute infarctions with multiple small microhemorrhages confirmed on MRI. Aspirin 81 mg started per neurology service
- Patient required intubation on 12/03 due to worsening encephalopathy
- Previously had episodes of tremulousness with ventilator asynchrony, tachypnea and desaturation. Concerning for seizure, however both cerebellar and subsequent EEG negative. Presentation more likely related to withdrawal.
- No seizure-like activity as of 12/11
- Follow-up CT head unchanged
- 12/08, office spec patient developed withdrawal/seizure-like activity and was given 1 dose of Keppra. Portable bedside EEG with Cerribell was started, no seizure activity noted, additional dosing held.
- 12/10, intermittent more lucid intervals observed. Minimize polypharmacy, discontinue clonidine and tizanidine. Add Precedex infusion and attempt to wean ketamine and Versed.
- Patient remains on very high dose of fentanyl drip; versed gtt has now been weaned off s/p ketamine drip restarted on 12/11; continue Precedex + ketamine infusions in an effort to wean off fentanyl drip; if patient is extubated, would completely
wean off ketamine drip and start buprenorphine micro-dosing protocol, assuming he can swallow safely (will need RING STAMPER evaluation)
- Start valium with prn doses while weaning off Versed drip to avoid benzodiazepine withdrawal/withdrawal seizure
- Continue to wean down on Valium - last day today
#3. Lactic acidosis - resolved
- Due to MSSA bacteremia and severe sepsis
- Resolved with IV hydration
#4. Acute renal insufficiency, hypernatremia
- Serum sodium improved on D5W, however serum Na now starting to rise again
- Stopped lasix as CXR from 12/12 shows no evidence of pulmonary edema
- Low-dose PO Lasix resumed today per cardiology
- Given that serum sodium is continuing to rise, resume D5W
- Patient passed RING STAMPER evaluation, okay to have regular diet with thin liquids
- Monitor UOP and trend sCr, strict I/O
#5. Acute transaminitis and Acute rhabdomyolysis (in the setting of severe sepsis, polysubstance drug use)
- LFTs have now normalized as of 12/10
- Previously, IVF with LR stopped as patient developed anasarca, diuresis initiated
#6. Polysubstance abuse
- Given that patient is now extubated and passed RING STAMPER, I will resume opiate withdrawal protocol with micro dosing of Subutex + oxycodone
-Resume clonidine in an effort to wean off Precedex
-Continue other supportive medications including prn Zanaflex, Atarax, Imodium + Bentyl
- Continue empiric thiamine replacement
- Continue Seroquel 50mg in the morning and 100mg at night
#7. QT prolongation - QTc now <500ms
- Suspect in the setting of electrolyte imbalance
- Follow-up EKG shows improving QTc
- EKG from 12/10 showed QTc 478ms
- Replete K>4, Mg>2, and PO4>3
#8. Vomiting, Acute pancreatitis - vomiting now resolved
- Elevated lipase noted - 601 on 12/06/2024
- Continue to trend lipase levels until <500
#9.Elevated Triglycerides
- Propofol infusion discontinued on 12/05
- Follow-up levels improved
- No additional follow-up TG labs needed
#10.LUE DVT involving brachial vein
- Given his multiple scattered acute infarctions with microhemorrhages, patient is high risk for ICH if systemic anticoagulation started
- Monitor with serial duplex US to assure no propagation of left brachial vein clot - repeat LUE duplex US performed today shows stable nonocclusive brachial vein thrombus; no need for AC at this time
- Currently left-sided PICC line has blood return and is able to flush, hence no need to remove at this time
#11. Acute respiratory failure with hypoxia - intubated 12/03/2024, extubated 12/12/2024
- Maintain SpO2 >90-94%
- Aspiration precautions
- Encouraged incentive parameter q1hr while awake
- he will need PT/OT
- prn nebulized bronchodilators - not currently bronchospastic
Lines:
LUE PICC line
RUE Midline
DVT prophylaxis: HSQ
Stress ulcer prophylaxis: No longer needed
Given that patient he is currently on Precedex infusion, continue ICU level of care for this critically ill patient. Once patient is weaned off Precedex infusion and is stable, then will downgrade to telemetry at that time. Once downgraded, our
service will sign off.
Critical care statement: A total of 39 minutes of critical care time was provided for this patient today. This includes management of unstable vital signs, evaluation of the patient at bedside, reviewing the patient�s pertinent medical records
including radiographs, microbiology, laboratory evaluations, and��discussion with primary team, consultants, pharmacy, nutrition, physical therapy, case management, charge nurse, critical care nursing, and respiratory therapy.
Subjective Dataa
Subjective Data
Date of Service:
Date of Service: December 13, 2024
Chief Complaint: Automation Qa Tester Follow Up
Subjective:
Pt seen and evaluated this AM. Extubated yesterday, and is currently breathing comfortably on room air. HR 120. BP 148/107, QTc 464ms. SpO2 98%. He mainly wants to eat/drink. Patient's mother at bedside, all questions were answered. Patient
understands that he cannot resume starting IV drug use after he is discharged from here.
Review of Systems
General: Other (Negative unless mentioned above)
Objective Data
Data Reviewed
Vital Signs / I&O / Oxygen:
Vital Signs
Temp Pulse Resp BP Pulse Ox
98.5 F 106 27 166/111 97
12/13/24 07:14 12/13/24 07:22 07/23/25 06:00 12/13/24 07:22 12/13/24 07:53
Intake and Output
12/12/24 12/13/24 12/14/24
06:59 06:59 06:59
Intake Total 4365.3 / 4417.8 1994.8 / 2015.1 168.9 / 168.9
Output Total 3360 / 3360 3400 / 3400
Balance 1005.3 / 1057.8 -1405.2 / -1384.9 168.9 / 168.9
SaO2 [CPAP] 98
SaO2 [A/C] 99
SaO2 97
Nasal Cannula flow liters per 6
minute
Physical Exam
General: Respiratory Distress (negative), Comfortable, Chills (negative) and Sweats (negative)
HEENT: Normocephalic and Anicteric
Cardiovascular: S1-S2 and Peripheral Edema (+2 lower extremity pitting edema bilaterally)
Respiratory: Wheeze (negative), Crackles (negative), Rhonchi (negative), Non-Labored Respirations and Stridor (negative)
GI: Soft, Non Distended, Non Tender and Normal Bowel Sounds
Neurology: Awake, Alert, Oriented and Tremors (Occasionally seen at rest)
Skin: Warm, Dry, Cyanosis (negative) and Jaundice (negative)
Labs/Micro/Reports
Lab Data
12/13/24 04:07
12/13/24 04:07
Laboratory Results
12/12/24
12:52
pH 7.48 H
pCO2 36
pO2 153 H
HCO3 26.8
O2 Delivery Level
Microbiology
12/11/24 03:33 Blood/Venous Blood Culture - Preliminary
No Growth in 48 hours- Final report to follow
12/12/24 03:10 Blood/Venous Blood Culture - Preliminary
No Growth in 24 hours- Final report to follow
12/10/24 03:14 Blood/Venous Blood Culture - Preliminary
No Growth in 72 hours- Final report to follow
12/03/24 08:20 Blood/Venous Blood Culture - Final
Staph aureus MRSA
12/03/24 08:20 Blood/Venous Gram Stain - Final
12/03/24 09:21 Blood/Venous Blood Culture - Final
Staph aureus MRSA
12/03/24 09:21 Blood/Venous Gram Stain - Final
12/05/24 16:46 Blood/Venous Blood Culture - Final
Staph aureus MRSA
12/05/24 16:46 Blood/Venous Gram Stain - Final
12/05/24 13:38 Blood/Venous Blood Culture - Final
Staph aureus MRSA
12/05/24 13:38 Blood/Venous Gram Stain - Final
12/09/24 03:54 Blood/Venous Blood Culture - Preliminary
Staph aureus MRSA
12/09/24 03:54 Blood/Venous Gram Stain - Preliminary
12/08/24 03:02 Blood/Venous Blood Culture - Preliminary
Staph aureus MRSA
12/08/24 03:02 Blood/Venous Gram Stain - Preliminary
12/07/24 04:06 Blood/Venous Blood Culture - Preliminary
Staph aureus MRSA
12/07/24 04:06 Blood/Venous Gram Stain - Preliminary
--- NOTE | 2024-12-13 08:51 | PHA.VAN.FU ---
Addendum entered and electronically signed by Yumiko Hirsch [facility] 12/13/24 09:52:
Consult performed in conjunction with retail pharmacy merchandiser. Agree with assessment and plan below.
Original Note:
Vancomycin Assessment / Plan
- Assessment
Renal Function: Stable
WBC's are: WNL
In the past 24 hrs, patient has been: Afebrile
Concomitant Antimicrobials: nafcillin
- Assessment - Therapeutic Drug Monitoring
Random Level: 12.6 - drawn ~17.5h after previous dose of 1250mg
- Dosing Plan
Dosing by Level: Re-dose today (vancomycin 1250mg x1 dose)
- Monitoring Plan
Random Level: 12/14 0600
- Follow Up
Pharmacy will continue to follow.
Vancomycin Follow UP
- -
Patient Age: 39
Patient Sex: Male
Vancomycin Day #: 11
Indication: Bacteremia
Requesting Provider: Dr. Fofana / Teto
Pertinent Antimicrobial Allergies:
NKDA
Height / Weight:
Height 6 ft 2 in
Actual Weight 82.5 kg
IBW in k.2
Pertinent Past Medical History: IV JOCELIN
- Vital Signs / Lab Results
Temp Pulse Resp BP Pulse Ox
98.5 F 106 27 166/111 97
12/13/24 07:14 12/13/24 07:22 12/13/24 06:00 12/13/24 07:22 12/13/24 07:53
Lab Results - Hematology
12/11/24 12/11/24 12/11/24
03:33 14:11 21:06
WBC 8.2 7.9 10.1
12/12/24 12/13/24
03:10 04:07
WBC 8.2 9.1
Lab Results - Chemistry
12/11/24 12/11/24 12/11/24
03:33 14:11 21:06
BUN 38 H 32 H 31 H
Creatinine 1.5 H 1.4 H 1.3
Estimated Creat Clear 78 84 90
Albumin 2.2 L 2.1 L
12/12/24 12/13/24
03:10 04:07
BUN 31 H 26 H
Creatinine 1.3 1.3
Estimated Creat Clear 90 90
Albumin 2.5 L
Microbiology Results
12/11/24 03:33 Blood Culture - Preliminary
Blood/Venous No Growth in 48 hours- Final report to follow
12/12/24 03:10 Blood Culture - Preliminary
Blood/Venous No Growth in 24 hours- Final report to follow
12/10/24 03:14 Blood Culture - Preliminary
Blood/Venous No Growth in 72 hours- Final report to follow
12/03/24 08:20 Blood Culture - Final
Blood/Venous Staph aureus MRSA
Gram Stain - Final
12/03/24 09:21 Blood Culture - Final
Blood/Venous Staph aureus MRSA
Gram Stain - Final
12/05/24 16:46 Blood Culture - Final
Blood/Venous Staph aureus MRSA
Gram Stain - Final
12/05/24 13:38 Blood Culture - Final
Blood/Venous Staph aureus MRSA
Gram Stain - Final
12/09/24 03:54 Blood Culture - Preliminary
Blood/Venous Staph aureus MRSA
Gram Stain - Preliminary
Therapeutic Drug Monitoring
Random Vancomycin 12.6 ug/ml 12/13/24 04:07
[2024-12-13] MEDS: LOW STRENGTH ASPIRIN TUBE (09:01)
[2024-12-13] MEDS: SEROQUEL TUBE (09:02)
[2024-12-13] MEDS: MIRALAX TUBE (09:02)
--- NOTE | 2024-12-13 10:12 | W.PN.ID1 ---
Date of Service
Date of Service: December 13, 2024
Today's Communication
If patient continues to improve, will have CT surgery evaluate for valve surgery.
Assessment / Plan
# Complicated sustained Staphylococcus aureus (MRSA/MSSA) bacteremia
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
# Multiple embolic CVA
# s/p New Seizure
# Fever resolving
# Leukocytosis; resolved
# Intubated 12/03, extubated 12/12/24
# LE, stable
# Polysubstance abuse (cocaine and fentanyl skin/muscle popper)
# hx MRSA wound abscesses (2010)
# hx of Viridans strep bacteremia (2010)
- Repeat blood culture negative to date from 12/10/24
- Discussed with microbiology and S. aureus experts.
There is discrepancy between blood cx PCR identified as MRSA and phenotype - identified as MSSA
Cefoxitin induced test negative. PBP2a negative.
Best to treat as both MRSA and MSSA.
-> Continue IV Vancomycin and Nafcillin 2g IV q4h (both crosses blood-brain barrier)
Monitor renal function and LFT's while on nafcillin.
-> If patient continues to improve, will have CT surgery evaluate for valve surgery.
Chief Complaint
-: Clinical Sepsis, Bacteremia and Other (embolic CVA)
Subjective / Review of Systems
Extubated. Hungry, will like to eat soon.
Vital Signs / Physical Exam
Vital Signs
Vital Signs
Temp Pulse Resp BP Pulse Ox
98.5 F 120 26 148/107 98
12/13/24 07:14 12/13/24 10:00 12/13/24 10:00 12/13/24 10:00 12/13/24 10:00
Physical Exam
Constitutional: No Acute Distress
Eyes: No Conjunctival Hemorrhage and Sclera Anicteric
Cardiovascular: Regular Rate and S1/S2
Pulmonary: Clear
Gastrointestinal: Soft, Non Tender, Non Distended and Normal Bowel Sounds
Genito-Urinary: Negative Balderas
Extremities: Negative Edema
Neurological: AO x 3
Lines: PICC and Other (midline)
Objective Data
Lab Data
Lab Results
12/13/24 04:07
12/13/24 04:07
Estimated Creat Clear 90 ml/min 12/13/24 04:07
Lactic Acid 1.3 mmol/L (0.7-2.0) 12/05/24 16:46
Total Bilirubin 0.9 mg/dl (0.2-1.3) 12/13/24 04:07
AST 26 U/L (17-59) 12/13/24 04:07
ALT 19 U/L (0-50) 12/13/24 04:07
Alkaline Phosphatase 70 U/L (38-126) 12/13/24 04:07
Amylase 139 U/L (30-110) H 12/05/24 04:04
Most recent labs reviewed.
Micro Results:
12/13/24 04:07 Blood Culture - Pending
Blood/Venous
12/11/24 03:33 Blood Culture - Preliminary
Blood/Venous No Growth in 48 hours- Final report to follow
12/12/24 03:10 Blood Culture - Preliminary
Blood/Venous No Growth in 24 hours- Final report to follow
12/10/24 03:14 Blood Culture - Preliminary
Blood/Venous No Growth in 72 hours- Final report to follow
12/03/24 08:20 Blood Culture - Final
Blood/Venous Staph aureus MRSA
Gram Stain - Final
12/03/24 09:21 Blood Culture - Final
Blood/Venous Staph aureus MRSA
Gram Stain - Final
12/05/24 16:46 Blood Culture - Final
Blood/Venous Staph aureus MRSA
Gram Stain - Final
12/05/24 13:38 Blood Culture - Final
Blood/Venous Staph aureus MRSA
Gram Stain - Final
12/09/24 03:54 Blood Culture - Preliminary
Blood/Venous Staph aureus MRSA
Gram Stain - Preliminary
12/08/24 03:02 Blood Culture - Preliminary
Blood/Venous Staph aureus MRSA
Gram Stain - Preliminary
12/07/24 04:06 Blood Culture - Preliminary
Blood/Venous Staph aureus MRSA
Gram Stain - Preliminary
12/03/24 08:38 Urine Culture - Final
Urine S aureus-Methicillin Sensitive
12/03/24 18:44 MRSA Screen - Final
Nose No Methicillin Resistant Staphylococcus aureus isolated.
Imaging:
12/05/24 CT a/p: Mild inflammatory change adjacent to the body and tail of the pancreas, suggestive of mild pancreatitis. No peripancreatic fluid collection appreciated. No evidence of intestinal obstruction or bowel inflammatory process. Study is
slightly limited by lack of intravenous or oral contrast. Gallbladder sludge without evidence of acute cholecystitis. No radiopaque gallstones are seen.
12/04/24 MRI brain: Numerous scattered acute infarctions in a distribution that is most suggestive of embolic phenomenon in the setting of known IV drug abuse. Multiple small microhemorrhages are also demonstrated.
12/03/24 CXR: Clear lungs.
12/03/[address]: Possible cortical petechial hemorrhages in the left frontal lobe and left occipital lobe. Possible small old infarct, periventricular small vessel ischemic disease or edema due to underlying mass in the left occipital lobe.
Care Review
Plan reviewed with: Nurse
[2024-12-13] MEDS: VANCOCIN 275 MG IV (10:27)
--- NOTE | 2024-12-13 10:52 | W.PN.CARDCBS ---
Today's Communication / Plan
-
Repeat transthoracic echo.
Start carvedilol 3.125 mg p.o. twice daily
Swallowing evaluation
Start Lasix 20 mg p.o. daily
Correct hypernatremia.
Will continue discussions with CT surgery regarding possible OR
Will need dental evaluation and Panorex.
Impression / Plan
-
Primary Press Operator Automatic: none prior to admission
Impression:
Presentation with change in mental status 12/03/24
Sepsis
Septic emboli by brain MRI
MSSA bacteremia
Pancreatitis
TME
VDRF
LE
Rhabdomyolysis
Elevated LFTs
Thrombocytopenia
IVDA since age 19
Vaping
Hypokalemia
ECHO 12/04/24: EF 55 to 60%, no regional wall motion abnormalities noted, no evidence of vegetation seen
KELI 12/07/24: EF 65%, large endocarditis/vegetations attached to mitral annulus measuring ~1x1cm each, mild MR, no Tricuspid or aortic vegetations
Plan:
-History: Patient continues with VDRF in the setting of sepsis, septic shock, TME, brain lesions concerning for embolic disease and rhabdo.
-KELI with evidence of large endocarditis/vegetations attached to the mitral annulus.
- He is now extubated and awake. I had a lengthy discussion with him regarding his condition and prognosis. He understands the severity of his condition.
- Blood cultures remain negative for the past several days. He does still have some low-grade fevers. Continue antibiotics.
-Will repeat transthoracic echo over next 24 hours to reassess LV function and mitral valve. We do lengthy discussion regarding the importance of no further using of substances.
-His proBNP continues to improve but is down to 4000. Will add low-dose carvedilol and oral Lasix today.
- Prior to any consideration for CT surgery clearly would need dental teeth removal and Panorex.
- Creatinine is improved and down to 1.3. He is now somewhat hypernatremia. Will likely need to increase his free water slightly.
- I discussed with him that if we were to consider valve replacement, he would need a clear plan for rehab and treatment of his severe drug addiction.
- Will continue to follow. Will add carvedilol 3.125 mg p.o. twice daily.
- for swallowing evaluation today.
- His hemoglobin is stable at 8.2. Thrombocytopenia has resolved.
CC time 32 min
Progress Note - Press Operator Automatic
Subjective
Date of Service: December 13, 2024
He is now extubated and awake. He is asking to eat. He has had no new significant fevers over the past 24 hours. He admits to using IV drugs continuously for the past 10 years. His last period of time drug-free was over 10 years ago.
Objective
Labs:
12/13/24 04:07
12/13/24 04:07
Labs
Hgb 8.2 g/dL (13.0-18.0) L 12/13/24 04:07
Hct 24.0 % (39.0-52.0) L 12/13/24 04:07
Plt Count 627 10^3/uL (130-400) H D 12/13/24 04:07
Sodium 149 mmol/L (135-145) H 12/13/24 04:07
Potassium 3.3 mmol/L (3.5-5.1) L 12/13/24 04:07
BUN 26 mg/dl (9-20) H 12/13/24 04:07
Creatinine 1.3 mg/dL (0.7-1.3) 12/13/24 04:07
Glucose 91 mg/dl (70-99) 12/13/24 04:07
Vital Signs and I&O:
Vital Signs
Temp Pulse Resp BP Pulse Ox
98.5 F 120 26 148/107 98
12/13/24 07:14 12/13/24 10:00 12/13/24 10:00 12/13/24 10:00 12/13/24 10:00
Vital Signs
Temp Pulse Resp BP Pulse Ox
98.5 F 120 26 148/107 98
12/13/24 07:14 12/13/24 10:00 12/13/24 10:00 12/13/24 10:00 12/13/24 10:00
Intake & Output
12/11/24 12/12/24 12/13/24 12/14/24
06:59 06:59 06:59 06:59
Intake Total 4380.0 / 4650.8 4365.3 / 4417.8 1994.8 / 2014.1 464.2 / 464.2
Output Total 2955 / 2975 3360 / 3360 3400 / 3400
Balance 1425.0 / 1675.8 1005.3 / 1057.8 -1405.2 / -1384.9 464.2 / 464.2
Physical Exam
Physical Exam
GEN: No distress, awake
HEENT: supple, anicteric, mmm
LUNGS:rhonchi
CV: Reg, S1/S2, 2/6 syst LSB,
ABD: soft, BS+, NT/ND
EXT: ++ edema
NEURO: Gross non-focal
SKIN: No rash
[2024-12-13] MEDS: LASIX 20 MG PO (12:08)
--- NOTE | 2024-12-13 14:33 | W.PN.HOSP.TC ---
Today's Communication/Plan
-
Continue antibiotics
Assessment / Plan
Assessment / Plan
Impression:
Patient is a 39-year-old male with a medical history of polysubstance abuse (skin popping with fentanyl) who was admitted after presentation with altered mental status. He was brought in by his parents with tremors and confusion. His mental status
abruptly declined and he was intubated for airway protection. CT brain showed possible left occipital lobe mass. His blood cultures are positive for MRSA. He is currently being managed in the ICU for treatment of encephalopathy and bacteremia.
Patient extubated.
Constant post blood culture, most recent blood culture negative
Assessment/plan:
Septic shock secondary to MRSA/MSSA bacteremia:
- Remains on vasopressors
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
- Still persistently febrile, leukocytosis improving
- Transesophageal echocardiogram 12/06 showed large mitral annulus vegetation
- No current plans for cardiothoracic surgery due to critical illness
- ID following, continue antibiotics with vancomycin and nafcillin, repeat cultures still positive
12/13
Repeat blood cultures so far negative.
Continue to biotic.
Patient extubated
Acute hypoxic respiratory failure.
Ventilation dependent respiratory failure.
12/13
Patient extubated
Acute toxic metabolic encephalopathy:
- Cautiously weaning ketamine and Versed drips and transitioning to Precedex, eyes open this morning and able to follow simple commands
- Continue EEG monitoring, no acute epileptiform activity captured
- Encephalopathy likely multifactorial due to bacteremia, opiate withdrawal, and and suspected septic emboli to brain
- MRI brain consistent with suspicion for septic emboli, repeat CT brain shows stable findings
- Continue mechanical ventilation for airway protection, vent management per cup machine operator
- Seroquel dose increased to 50 mg daily and 100 mg at night
- Will titrate down on opiate withdrawal medications as able
12/13
Mental status improved.
Currently extubated
LE:
- Creatinine improved
Hypokalemia:
- Mild, replete
- Monitor
Rhabdomyolysis:
- Continue IV fluids
Elevated LFTs:
- Suspect due to severe sepsis
- Resolved, monitor with treatment as above
Pancreatitis:
- Elevated lipase, CT imaging with evidence of pancreatic inflammation
- Triglycerides elevated but improving, discontinued propofol for sedation, trend triglyceride levels
- Currently tolerating tube feeds
Lactic acidosis:
- Resolved, continue to monitor
Polysubstance abuse:
- Long history of injection drug abuse
- Titrate clonidine and tizanidine, Versed and ketamine drips as able
- Can initiate buprenorphine treatment when tolerating p.o.
CODE STATUS: Full code
DVT prophylaxis: SCDs
Diet: Regular diet
Family confusion: Discussed with mother and sister at bedside/discussed with mother and father at bedside
Total time spent on today's encounter was 75 minutes which included time spent in counseling the patient/family regarding diagnosis and treatment plan as listed above, goals of care, and symptom management. Case was discussed with nursing staff,
specialists, and care coordinators/case management. All labs and imaging personally reviewed by me. Remainder the time spent in detailed review of previous records, lab data, imaging, and other medical provider documentation.
Anticipated Discharge: > 48 hours
Subjective/Interval History
-
Date of Service: December 13, 2024
Patient extubated.
Awake and oriented.
Discussed with family at bedside.
Passed swallow eval.
Objective Data
-
Labs:
Laboratory Results
12/13/24
04:07
WBC 9.1
Hgb 8.2 L
Hct 24.0 L
Plt Count 627 H D
Sodium 149 H
Potassium 3.3 L
Chloride 119 H
Carbon Dioxide 28
BUN 26 H
Creatinine 1.3
Glucose 91
Calcium 7.9 L
Total Bilirubin 0.9
AST 26
ALT 19
Alkaline Phosphatase 70
Vital Signs:
Vital Signs
Temp Pulse Resp BP Pulse Ox
98.6 F 115 26 160/116 98
12/13/24 11:18 12/13/24 14:09 12/13/24 10:00 12/13/24 14:09 12/13/24 10:00
I&O
12/12/24 12/13/24 12/14/24
06:59 06:59 06:59
Intake Total 4365.3 / 4417.8 1994.8 / 2015.1 653.4 / 653.4
Output Total 3360 / 3360 3400 / 3400 600 / 600
Balance 1005.3 / 1057.8 -1405.2 / -1384.9 53.4 / 53.4
Physical Exam
-
General: Appears in Distress
HEENT: Normocephalic and Atraumatic
Respiratory: Rales, Rhonchi and Crackles
Cardiac: Tachycardic
Breast: Deferred by me
GI: Soft, Nontender, Nondistended and Normal Bowel Sounds
Genito-urinary: No Costovertebral Tender
Musculoskeletal: No Clubbing, No Cyanosis and No Edema
Skin: Warm
Neuro: Awake and Alert
Psych: Calm
Data Reviewed
-
Diagnostic Radiology: Image personally visualized and interpreted and Report Reviewed by me
CT Scan: Image personally visualized and interpreted and Report Reviewed by me
Ultrasound: Image personally visualized and interpreted and Report Reviewed by me
MRI: Image personally visualized and interpreted and Report Reviewed by me
Medical Tests (Nuc Med, Echo etc): Image personally visualized and interpreted and Report Reviewed by me
Labs: Labs Reviewed by me
Old Records: Reviewed
--- NOTE | 2024-12-13 14:47 | PTCARENOTE ---
Cleared by FINISH SPECIALIST for oral meds, regular diet and thin liquids. Assessment unchanged. Pt resting in bed, call cintron in reach.
--- NOTE | 2024-12-13 15:42 | CM ---
Has been extubated, FEES completed, LUE DVT, remains critically ill, 12/06 large mitral annulus vegetation. Discharge POC: TBD. Will notify [facility] that patient is extubated.
[2024-12-13] MEDS: TYLENOL 1000 MG PO ×2 (15:47→23:41)
[2024-12-13] MEDS: OXYCONTIN (CONTROLLED RELEASE) 40 MG PO ×2 (15:47→23:42)
[2024-12-13] MEDS: BELBUCA 300 MCG BUCCAL ×3 (15:48→23:42)
[2024-12-13] MEDS: CATAPRES 0.1 MG PO (15:50)
[2024-12-13] MEDS: D5W 1000 IV (15:50)
--- NOTE | 2024-12-13 17:18 | PN.CDI ---
CDI
- -
CDI:
Physician Documentation Request
Admit Date: 12/03/24 11:30
Dear Doctor Franco,
Please review the following and provide your response in the progress notes.
Clinical Indicators:
Pt admitted for Septic shock secondary to MRSA/MSSA bacteremia.
12/10 Cardiology: ' ECHO 12/04/24: EF 55 to 60%, no regional wall motion abnormalities noted...
He is volume overloaded (HFpEF)...Continue IV Lasix 40 mg daily, fluid balance is 150 cc negative,..'
Clarify which of the following accurately represents the acuity of the HFpEF. Possible options might include:
Acute HFpEF
Chronic HFpEF
Acute non-cardiac pulmonary edema due to fluid overload
Other
Use of terms such as suspected, likely, concern for, or probable (associated with a specific diagnosis that is being evaluated, monitored, or treated as if it exists) are acceptable and can be coded in the inpatient setting, when documented at the
time of discharge.
Thank you,
Rosalva Merlos RN, BSN
CDI Specialist
[employer] Text
Please use your independent medical judgment in providing your response.
[2024-12-13] MEDS: CATAPRES 0.3 MG PO ×2 (17:43→21:24)
[2024-12-13] MEDS: ROXICODONE 20 MG PO (17:43)
--- NOTE | 2024-12-13 17:55 | PTCARENOTE ---
Precedex weaned to 0.4mcg/kg/hr. Opiate withdrawal protocol with micro-dosing of Subutex initiated. Pt tolerating diet at this time. G bath provided. Assessment unchanged. Family at bedside.
[2024-12-13] MEDS: COREG 3.125 MG PO (20:08)
--- NOTE | 2024-12-13 21:38 | PTCARENOTE ---
Received pt from previous RN. Pt is AAOx3, drowsy at times, anxious, COWs Q4 (see worklist). Sinus tach on the monitor, b/l UE and LE edema elevated on pillows. Pt on RA O2 sat 98%, lungs diminished/coarse. Incont of stool. Pt needs reminders to
void and assistance with the urinal. SCDs in place. Precedex at 0.4 mcgs. IVF infusing at 75 ml/hr. CHG bath and mouth care provided. Call cintron in reach. Pt w/ no complaints. Safe environment maintained.
[2024-12-14] VITALS (23 sets, daily range): BP systolic 100–170; BP diastolic 65–102; BMI 23.7
--- NOTE | 2024-12-14 00:13 | PTCARENOTE ---
Systems reviewed, no new changes in assessment. Precedex gtt maintained. Call cintron in reach. Safe environment maintained.
[2024-12-14] MEDS: PRECEDEX 100 IV (02:31)
[2024-12-14] MEDS: NAFCIL 108 MG IV ×5 (04:47→19:37)
[2024-12-14] MEDS: BELBUCA 300 MCG BUCCAL ×3 (04:48→13:16)
[2024-12-14] MEDS: D5W 1000 IV (04:49)
[2024-12-14 05:11] LABS: Hematocrit 22.7 % (39.0-52.0); Hemoglobin 7.8 g/dL (13.0-18.0); Mean Corp Hgb Conc. 34.4 g/dL (33.0-37.0); Mean Corpuscular Volume 86.3 fL (80.0-94.0); Platelet Count 705 10^3/uL (130-400); Red Cell Dist. Width 13.9 % (11.5-14.5)
[2024-12-14 05:23] LABS: ALT (SGPT) 18 U/L (0-50); AST (SGOT) 24 U/L (17-59); Albumin 2.3 g/dl (3.5-5.0); Alkaline Phosphatase 55 U/L (38-126); Blood Urea Nitrogen 21 mg/dl (9-20); Calcium 7.9 mg/dl (8.4-10.2); Carbon Dioxide 26 mmol/L (22-30); Chloride 110 mmol/L (98-107); Estimated Creatinine Clearance 98 ml/min; Glucose 105 mg/dl (70-99); Lipase 492 U/L (23-300); Potassium 3.4 mmol/L (3.5-5.1); Sodium 140 mmol/L (135-145); Total Protein 6.0 g/dl (6.3-8.2); eGFR > 60.00
[2024-12-14] MEDS: KCL 100 IV (05:42)
--- NOTE | 2024-12-14 05:52 | PTCARENOTE ---
Systems reviewed, no new changes in assessment. Precedex gtt tapered (see worklist). AM labs provided. Call cintron in reach. Safe environment maintained.
[2024-12-14] MEDS: APRESOLINE 5 MG IV (06:04)
--- NOTE | 2024-12-14 07:30 | PTCARENOTE ---
Received patient A&Ox3, on RA, ST in 110s-120s, BP WNL, GI/ continent, turned off Precedex drip after shift report, denied pain/discomfort throughout.
--- NOTE | 2024-12-14 08:14 | W.PN.INTV ---
Today's Communication / Plan
Recommendations
Off Precedex drip since change of shift this morning, and he is doing well
Continue clonidine
Microdosing Subutex with scheduled oxycodone
Continue ABx per ID; will need extended course with eventual visit with CT surgery as an outpatient assuming he continues to be abstinent from IVDU
LUE PICC line removal today, with catheter tip to be cultured
Repeat blood culture to be sent today (12/14/2024) � do not collect from midline or PICC line
Repeat LUE duplex US yesterday shows stable brachial DVT - continue to monitor off systemic AC
Continue chemical DVT prophylaxis
PT/OT
Will need prolonged course of ABx
Eventual MV replacement per CT surgery - pt seems motivated to remain abstinent from illicit drug use/IVDU
Stable for downgrade out of ICU to telemetry. No additional recommendations at this time. Repairer Cylinder Heads/Pulmonary service will now sign off. Please reconsult if there are any additional questions/concerns, or if patient's respiratory status
deteriorates.
Assessment
-
39-year-old male with history of polysubstance abuse, presents with 4 days of fevers, progressive 2 days of tremors, nausea/emesis on day of admission found to have confusion, suspected sepsis, multiple brain lesions, transaminitis, rhabdomyolysis.
Patient treated with IV antibiotics, IV fluids, withdrawal protocol with Dilaudid, buprenorphine in the ED. Also found to have prolonged QT. Admitted to ICU for further management. Required intubation and mechanical ventilation starting 12/03.
Conditions present prior to admission
History of MRSA bacteremia 2010
Right forearm abscess
Right mandibular fracture 2010
Status post closed reduction
Assessment and plan
#1. Polysubstance drug use with severe sepsis, MSSA/MRSA bacteremia and mitral valve endocarditis
- Suspect embolic intracranial cortical petechial hemorrhages, also developed Janeway lesions on his hands
- ID service on case, currently on IV nafcillin and IV vancomycin, some diagnostic uncertainty about MSSA vs MRSA vs combination of both
- CT surgery on case, patient not currently felt to be a surgical candidate due to critical illness
- Continue to monitor temperature -last fever was on 12/11 to 101.2 �F. Blood cultures collected on 12/11 show NGTD; unfortunately blood cultures collected 12/12 grew MRSA --> ID feels that the PICC line may have been seeded to from his vegetation -->
will remove the PICC line today and Cx the tip
- He will need prolonged antibiotics, defer duration to ID
- Repeat echo today
#2. Acute toxic metabolic encephalopathy, ?seizures
- Encephalopathy markedly improved as of 12/11; and as of 12/13, his mental status is now back to normal
- Related to severe sepsis, lactic acidosis, MRSA bacteremia as well as intracranial petechial hemorrhages
- Numerous scattered acute infarctions with multiple small microhemorrhages confirmed on MRI. Aspirin 81 mg started per neurology service
- Patient required intubation on 12/03 due to worsening encephalopathy
- Previously had episodes of tremulousness with ventilator asynchrony, tachypnea and desaturation. Concerning for seizure, however both cerebellar and subsequent EEG negative. Presentation more likely related to withdrawal.
- No seizure-like activity as of 12/11
- Follow-up CT head unchanged
- 12/08, per diem patient developed withdrawal/seizure-like activity and was given 1 dose of Keppra. Portable bedside EEG with Cerribell was started, no seizure activity noted, additional dosing held.
- 12/10, intermittent more lucid intervals observed. Minimize polypharmacy, discontinue clonidine and tizanidine. Add Precedex infusion and attempt to wean ketamine and Versed.
- Patient remains on very high dose of fentanyl drip; versed gtt has now been weaned off s/p ketamine drip restarted on 12/11; continue Precedex + ketamine infusions in an effort to wean off fentanyl drip; if patient is extubated, would completely
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
- Start valium with prn doses while weaning off Versed drip to avoid benzodiazepine withdrawal/withdrawal seizure
- Wean off scheduled Valium yesterday
#3. Lactic acidosis - resolved
- Due to MSSA bacteremia and severe sepsis
- Resolved with IV hydration
#4. Acute renal insufficiency, hypernatremia
- Now normalized Na with D5W --> stop D5W now and continue to trend sNa level with daily BMP
- Previously stopped lasix as CXR from 12/12 shows no evidence of pulmonary edema
- Low-dose PO Lasix resumed yesterday per cardiology
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
- Monitor UOP and trend sCr, strict I/O
#5. Acute transaminitis and Acute rhabdomyolysis (in the setting of severe sepsis, polysubstance drug use)
- LFTs have now normalized as of 12/10
- Previously, IVF with LR stopped as patient developed anasarca, diuresis initiated
#6. Polysubstance abuse
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
-Resumed clonidine to help wean him off Precedex --> precedex now off as of this AM at change of shift (7AM)
-Continue supportive medications including prn Zanaflex, Atarax, Imodium + Bentyl
- Continue empiric thiamine replacement
- Continue Seroquel 50mg in the morning and 100mg at night - may adjust as needed going forward
#7. QT prolongation - QTc now <500ms
- Suspect in the setting of electrolyte imbalance
- Follow-up EKG shows improving QTc
- EKG from 12/10 showed QTc 478ms
- Replete K>4, Mg>2, and PO4>3
#8. Vomiting, Acute pancreatitis - vomiting now resolved
- Elevated lipase noted - 601 on 12/06/2024
- Lipase levels today are 492 � can stop trending at this time
#9.Elevated Triglycerides
- Propofol infusion discontinued on 12/05
- Follow-up levels improved
- No additional follow-up TG labs needed
#10.LUE DVT involving brachial vein
- Given his multiple scattered acute infarctions with microhemorrhages, patient is high risk for ICH if systemic anticoagulation started
- Monitor with serial duplex US to assure no propagation of left brachial vein clot - repeat LUE duplex US performed 12/13/24 shows stable nonocclusive brachial vein thrombus;no need for AC at this time
- Left upper extremity PICC line being removed today (12/14), as this is a suspected nidus of infection given his continued positive blood cultures
#11.Acute respiratory failure with hypoxia - intubated 12/03/2024, extubated 12/12/2024
- Maintain SpO2 >90-94%
- Aspiration precautions
- Encouraged incentive parameter q1hr while awake
- PT/OT
- prn nebulized bronchodilators - not currently bronchospastic
#12.Hypertension + tachycardia
- Hypertension + tachycardia likely due to multiple factors, including physiological withdrawal from the multiple sedating medications he has required over the last 10-11 days, including Versed, fentanyl, propofol and ketamine
- Increase Coreg dose to 6.5 mg BID
- Goal BP<140/90, goal HR 60-100 --> tachycardia is sinus, and may take some time to normalize; pt can tolerate heart rate in 110-120 range
Lines:
LUE PICC line --> to be removed today (12/14)
RUE Midline
DVT prophylaxis: HSQ
Stress ulcer prophylaxis: DC'd
Patient is now off Precedex infusion. Stable for downgrade out of ICU to telemetry. No additional recommendations at this time. Repairer Cylinder Heads/Pulmonary service will now sign off. Thank you for allowing us to be involved in the care of this
patient. Please reconsult if there are any additional questions/concerns, or if patient's respiratory status deteriorates.
Total time spent today was 58 minutes for this encounter. Time includes reviewing laboratory test/imaging results, reviewing pertinent medical records, obtaining and reviewing medical history, performing an appropriate exam, ordering medications,
tests and procedures. Time also includes documentation of this encounter, coordinating patient care and communicating with other healthcare professionals. Total time does not include separately billed tests performed on this date of service.
Subjective Dataa
Subjective Data
Date of Service:
Date of Service: December 14, 2024
Chief Complaint: Repairer Cylinder Heads Follow Up
Subjective:
Patient seen and evaluated spine. Was on Precedex overnight at 0.2 mcg/kg/h, and has been off since 7 AM. Heart rate 124, BP 170/1 2 and saturating 98% on room air. QTc this morning on gambling monitor is 561ms.
Objective Data
Data Reviewed
Vital Signs / I&O / Oxygen:
Vital Signs
Temp Pulse Resp BP Pulse Ox
99.4 F 116 22 151/91 98
12/14/24 08:16 12/14/24 07:00 12/14/24 07:00 12/14/24 07:00 12/14/24 07:00
Intake and Output
12/13/24 12/14/24 12/15/24
06:59 06:59 06:59
Intake Total 1993.8 / 2014. 3952.3 / 3952.3
Output Total 3400 / 3400 1830 / 1830
Balance -1405.2 / -1384.9 2122.3 / 2122.3
SaO2 [CPAP] 98
SaO2 [A/C] 99
SaO2 98
Nasal Cannula flow liters per 6
minute
Physical Exam
General: Respiratory Distress (negative), Comfortable, Chills (negative) and Sweats (negative)
HEENT: Normocephalic and Anicteric
Cardiovascular: S1-S2 and Peripheral Edema (+2 lower extremity pitting edema bilaterally)
Respiratory: Wheeze (negative), Crackles (negative), Rhonchi (negative), Non-Labored Respirations and Stridor (negative)
GI: Soft, Non Distended, Non Tender and Normal Bowel Sounds
Neurology: Awake, Alert, Oriented and Tremors (Occasionally seen at rest)
Skin: Warm, Dry, Cyanosis (negative) and Jaundice (negative)
Labs/Micro/Reports
Lab Data
12/14/24 04:39
12/14/24 04:39
Microbiology
12/12/24 03:10 Blood/Venous Blood Culture - Preliminary
Staph aureus MRSA
12/12/24 03:10 Blood/Venous Gram Stain - Preliminary
12/13/24 04:07 Blood/Venous Blood Culture - Preliminary
No Growth in 24 hours- Final report to follow
12/11/24 03:33 Blood/Venous Blood Culture - Preliminary
No Growth in 72 hours- Final report to follow
12/10/24 03:14 Blood/Venous Blood Culture - Preliminary
No Growth in 4 days- Final report to follow
12/07/24 04:06 Blood/Venous Blood Culture - Final
Staph aureus MRSA
12/07/24 04:06 Blood/Venous Gram Stain - Final
12/03/24 08:20 Blood/Venous Blood Culture - Final
Staph aureus MRSA
12/03/24 08:20 Blood/Venous Gram Stain - Final
12/03/24 09:21 Blood/Venous Blood Culture - Final
Staph aureus MRSA
12/03/24 09:21 Blood/Venous Gram Stain - Final
12/05/24 16:46 Blood/Venous Blood Culture - Final
Staph aureus MRSA
12/05/24 16:46 Blood/Venous Gram Stain - Final
12/05/24 13:38 Blood/Venous Blood Culture - Final
Staph aureus MRSA
12/05/24 13:38 Blood/Venous Gram Stain - Final
12/09/24 03:54 Blood/Venous Blood Culture - Preliminary
Staph aureus MRSA
12/09/24 03:54 Blood/Venous Gram Stain - Preliminary
--- NOTE | 2024-12-14 09:20 | PHA.VAN.FU ---
Addendum entered and electronically signed by Yumiko Hirsch RPH 12/14/24 15:18:
Evaluated patient in conjunction with instructor adjunct pharmacy technician. Agree with assessment and plan.
Original Note:
Vancomycin Assessment / Plan
- Assessment
Renal Function: Stable
WBC's are: Stable
In the past 24 hrs, patient has been: Afebrile
- Assessment - Therapeutic Drug Monitoring
Random Level: 12.6 - taken ~18h after 1250mg dose
- Dosing Plan
Dosing by Level: Re-dose today (vancomycin 1250mg x1 dose)
- Monitoring Plan
Peak Level: 12/14 timed based off of one-time dose admin
Random Level: 12/15 0600
Monitoring Comments: will obtain peak and random to assess pt-specific PK
Will assess peak with random level drawn in AM on 12/15
- Follow Up
Pharmacy will continue to follow.
Vancomycin Follow UP
- -
Patient Age: 39
Patient Sex: Male
Vancomycin Day #: 12
Indication: Bacteremia
Requesting Provider: Dr. Fofana / Teto
Pertinent Antimicrobial Allergies:
NKDA
Height / Weight:
Height 6 ft 2 in
Actual Weight 83.5 kg
IBW in k.2
Pertinent Past Medical History: IV JOCELIN
- Vital Signs / Lab Results
Temp Pulse Resp BP Pulse Ox
99.4 F 116 22 151/91 98
12/14/24 08:16 12/14/24 07:00 12/14/24 07:00 12/14/24 07:00 12/14/24 07:00
Lab Results - Hematology
12/11/24 12/11/24 12/12/24
14:11 21:06 03:10
WBC 7.9 10.1 8.2
12/13/24 12/14/24
04:07 04:39
WBC 9.1 8.9
Lab Results - Chemistry
12/11/24 12/11/24 12/12/24
14:11 21:06 03:10
BUN 32 H 31 H 31 H
Creatinine 1.4 H 1.3 1.3
Estimated Creat Clear 84 90 90
Albumin 2.1 L
12/13/24 12/14/24
04:07 04:39
BUN 26 H 21 H
Creatinine 1.3 1.2
Estimated Creat Clear 90 98
Albumin 2.5 L 2.3 L
Microbiology Results
12/12/24 03:10 Blood Culture - Preliminary
Blood/Venous Staph aureus MRSA
Gram Stain - Preliminary
12/13/24 04:07 Blood Culture - Preliminary
Blood/Venous No Growth in 24 hours- Final report to follow
12/11/24 03:33 Blood Culture - Preliminary
Blood/Venous No Growth in 72 hours- Final report to follow
12/10/24 03:14 Blood Culture - Preliminary
Blood/Venous No Growth in 4 days- Final report to follow
12/07/24 04:06 Blood Culture - Final
Blood/Venous Staph aureus MRSA
Gram Stain - Final
12/03/24 08:20 Blood Culture - Final
Blood/Venous Staph aureus MRSA
Gram Stain - Final
12/03/24 09:21 Blood Culture - Final
Blood/Venous Staph aureus MRSA
Gram Stain - Final
12/05/24 16:46 Blood Culture - Final
Blood/Venous Staph aureus MRSA
Gram Stain - Final
12/05/24 13:38 Blood Culture - Final
Blood/Venous Staph aureus MRSA
Gram Stain - Final
Therapeutic Drug Monitoring
Random Vancomycin 12.6 ug/ml 12/14/24 04:39
--- NOTE | 2024-12-14 09:42 | W.PN.ID1 ---
Date of Service
Date of Service: December 14, 2024
Today's Communication
DC Picc, cx tip.
See below.
Assessment / Plan
# Complicated sustained Staphylococcus aureus (MRSA/MSSA) bacteremia
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
# Multiple embolic CVA
# LUE PICC associated DVT
# Fever resolving
# Leukocytosis; resolved
# s/p Intubated 12/03, extubated 12/12/24
# LE, stable
# Polysubstance abuse (cocaine and fentanyl skin/muscle popper)
# hx MRSA wound abscesses (2010)
# hx of Viridans strep bacteremia (2010)
- 12/12/24 Blood cx turned positive with MRSA
- Repeat blood cx's daily until persistently negative.
- DC LUE PICC line, cx tip
Will leave RUE midline for now as patient with poor venous access.
- Discussed with microbiology and S. aureus experts.
There is discrepancy between blood cx PCR identified as MRSA and phenotype - identified as MSSA
Cefoxitin induced test negative. PBP2a negative.
Best to treat as both MRSA and MSSA.
-> Continue IV Vancomycin and Nafcillin 2g IV q4h (both crosses blood-brain barrier)
Monitor renal function and LFT's while on nafcillin.
-> If patient continues to improve, will have CT surgery reevaluate for valve surgery.
Pt with poor dentition. Check dental xray.
Chief Complaint
-: Clinical Sepsis, Bacteremia and Other (embolic CVA)
Subjective / Review of Systems
Sister at bedside.
Pt feeling better. Allowed to eat.
Vital Signs / Physical Exam
Vital Signs
Vital Signs
Temp Pulse Resp BP Pulse Ox
99.4 F 116 22 151/91 98
12/14/24 08:16 12/14/24 07:00 12/14/24 07:00 12/14/24 07:00 12/14/24 07:00
Physical Exam
Constitutional: Acutely Ill
Eyes: No Conjunctival Hemorrhage and Sclera Anicteric
Oropharyngeal: Poor Dention
Cardiovascular: S1/S2 and Other (tachycardic)
Gastrointestinal: Soft, Non Tender, Non Distended and Normal Bowel Sounds
Extremities: Edema (LUE ), Splinter Hemorrhage and Janeway Lesions
Neurological: AO x 3; Negative Meningeal Signs
Psychological: Calm
Lines: PICC (LUE + edema) and Other (RUE midline)
Objective Data
Lab Data
Lab Results
12/14/24 04:39
12/14/24 04:39
Estimated Creat Clear 98 ml/min 12/14/24 04:39
Lactic Acid 1.3 mmol/L (0.7-2.0) 12/05/24 16:46
Total Bilirubin 0.9 mg/dl (0.2-1.3) 12/14/24 04:39
AST 24 U/L (17-59) 12/14/24 04:39
ALT 18 U/L (0-50) 12/14/24 04:39
Alkaline Phosphatase 55 U/L (38-126) 12/14/24 04:39
Amylase 139 U/L (30-110) H 12/05/24 04:04
Most recent labs reviewed.
Micro Results:
12/12/24 03:10 Blood Culture - Preliminary
Blood/Venous Staph aureus MRSA
Gram Stain - Preliminary
12/13/24 04:07 Blood Culture - Preliminary
Blood/Venous No Growth in 24 hours- Final report to follow
12/11/24 03:33 Blood Culture - Preliminary
Blood/Venous No Growth in 72 hours- Final report to follow
12/10/24 03:14 Blood Culture - Preliminary
Blood/Venous No Growth in 4 days- Final report to follow
12/07/24 04:06 Blood Culture - Final
Blood/Venous Staph aureus MRSA
Gram Stain - Final
12/03/24 08:20 Blood Culture - Final
Blood/Venous Staph aureus MRSA
Gram Stain - Final
12/03/24 09:21 Blood Culture - Final
Blood/Venous Staph aureus MRSA
Gram Stain - Final
12/05/24 16:46 Blood Culture - Final
Blood/Venous Staph aureus MRSA
Gram Stain - Final
12/05/24 13:38 Blood Culture - Final
Blood/Venous Staph aureus MRSA
Gram Stain - Final
12/09/24 03:54 Blood Culture - Preliminary
Blood/Venous Staph aureus MRSA
Gram Stain - Preliminary
12/08/24 03:02 Blood Culture - Preliminary
Blood/Venous Staph aureus MRSA
Gram Stain - Preliminary
12/03/24 08:38 Urine Culture - Final
Urine S aureus-Methicillin Sensitive
12/03/24 18:44 MRSA Screen - Final
Nose No Methicillin Resistant Staphylococcus aureus isolated.
Imaging:
12/05/24 CT a/p: Mild inflammatory change adjacent to the body and tail of the pancreas, suggestive of mild pancreatitis. No peripancreatic fluid collection appreciated. No evidence of intestinal obstruction or bowel inflammatory process. Study is
slightly limited by lack of intravenous or oral contrast. Gallbladder sludge without evidence of acute cholecystitis. No radiopaque gallstones are seen.
12/04/24 MRI brain: Numerous scattered acute infarctions in a distribution that is most suggestive of embolic phenomenon in the setting of known IV drug abuse. Multiple small microhemorrhages are also demonstrated.
12/03/24 CXR: Clear lungs.
12/03/[address]: Possible cortical petechial hemorrhages in the left frontal lobe and left occipital lobe. Possible small old infarct, periventricular small vessel ischemic disease or edema due to underlying mass in the left occipital lobe.
Care Review
Plan reviewed with: Physician (Dr. Michelle)
[2024-12-14] MEDS: VALIUM INJECTION 5 MG IV (09:50)
[2024-12-14] MEDS: VITAMIN B1 100 MG PO (09:51)
[2024-12-14] MEDS: OXYCONTIN (CONTROLLED RELEASE) 40 MG PO ×2 (09:52→16:36)
[2024-12-14] MEDS: HEPARIN 5000 UNITS SC ×2 (09:52→16:36)
[2024-12-14] MEDS: LOW STRENGTH ASPIRIN 81 MG PO (09:52)
[2024-12-14] MEDS: COREG 3.125 MG PO ×2 (09:52→13:15)
[2024-12-14] MEDS: LASIX 20 MG PO (09:53)
[2024-12-14] MEDS: THERAGRAN 1 TABLET PO (09:53)
[2024-12-14] MEDS: TYLENOL 1000 MG PO ×2 (09:53→16:36)
[2024-12-14] MEDS: CATAPRES 0.3 MG PO ×4 (09:54→21:39)
[2024-12-14] MEDS: VANCOCIN 275 MG IV (11:11)
--- NOTE | 2024-12-14 11:24 | W.PN.HOSP.TC ---
Today's Communication/Plan
-
Remove PICC line
CT surgery to reevaluate.
Assessment / Plan
Assessment / Plan
Impression:
Patient is a 39-year-old male with a medical history of polysubstance abuse (skin popping with fentanyl) who was admitted after presentation with altered mental status. He was brought in by his parents with tremors and confusion. His mental status
abruptly declined and he was intubated for airway protection. CT brain showed possible left occipital lobe mass. His blood cultures are positive for MRSA. He is currently being managed in the ICU for treatment of encephalopathy and bacteremia.
Patient extubated.
Constant positive blood culture, infectious disease recommending to remove PICC line
Assessment/plan:
Septic shock secondary to MRSA/MSSA bacteremia:
- Remains on vasopressors
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
- Still persistently febrile, leukocytosis improving
- Transesophageal echocardiogram 12/06 showed large mitral annulus vegetation
- No current plans for cardiothoracic surgery due to critical illness
- ID following, continue antibiotics with vancomycin and nafcillin, repeat cultures still positive
12/13
Repeat blood cultures so far negative.
Continue to biotic.
Patient extubated
12/14
P[address] line discontinued.
CT surgery to evaluate again for consideration of any intervention.
Acute hypoxic respiratory failure.
Ventilation dependent respiratory failure.
12/13
Patient extubated
Acute toxic metabolic encephalopathy:
- Cautiously weaning ketamine and Versed drips and transitioning to Precedex, eyes open this morning and able to follow simple commands
- Continue EEG monitoring, no acute epileptiform activity captured
- Encephalopathy likely multifactorial due to bacteremia, opiate withdrawal, and and suspected septic emboli to brain
- MRI brain consistent with suspicion for septic emboli, repeat CT brain shows stable findings
- Continue mechanical ventilation for airway protection, vent management per content specialist
- Seroquel dose increased to 50 mg daily and 100 mg at night
- Will titrate down on opiate withdrawal medications as able
12/13
Mental status improved.
Currently extubated
LE:
- Creatinine improved
Hypokalemia:
- Mild, replete
- Monitor
Rhabdomyolysis:
- Continue IV fluids
Elevated LFTs:
- Suspect due to severe sepsis
- Resolved, monitor with treatment as above
Pancreatitis:
- Elevated lipase, CT imaging with evidence of pancreatic inflammation
- Triglycerides elevated but improving, discontinued propofol for sedation, trend triglyceride levels
- Currently tolerating tube feeds
Lactic acidosis:
- Resolved, continue to monitor
Polysubstance abuse:
- Long history of injection drug abuse
- Titrate clonidine and tizanidine, Versed and ketamine drips as able
- Can initiate buprenorphine treatment when tolerating p.o.
CODE STATUS: Full code
DVT prophylaxis: SCDs
Diet: Regular diet
Family confusion: Discussed with mother and sister at bedside/discussed with mother and father at bedside
Total time spent on today's encounter was 75 minutes which included time spent in counseling the patient/family regarding diagnosis and treatment plan as listed above, goals of care, and symptom management. Case was discussed with nursing staff,
specialists, and care coordinators/case management. All labs and imaging personally reviewed by me. Remainder the time spent in detailed review of previous records, lab data, imaging, and other medical provider documentation.
Anticipated Discharge: > 48 hours
Subjective/Interval History
-
Date of Service: December 14, 2024
Patient is awake and oriented.
Tolerating regular diet.
Still positive blood culture, infectious is recommending to remove PICC line.
Objective Data
-
Labs:
Laboratory Results
12/14/24
04:39
WBC 8.9
Hgb 7.8 L
Hct 22.7 L
Plt Count 705 H
Sodium 140 D
Potassium 3.4 L
Chloride 110 H
Carbon Dioxide 26
BUN 21 H
Creatinine 1.2
Glucose 105 H
Calcium 7.9 L
Total Bilirubin 0.9
AST 24
ALT 18
Alkaline Phosphatase 55
Vital Signs:
Vital Signs
Temp Pulse Resp BP Pulse Ox
99.4 F 122 22 156/99 98
12/14/24 08:16 12/14/24 09:54 12/14/24 07:00 12/14/24 09:54 12/14/24 07:00
I&O
12/13/24 12/14/24 12/15/24
06:59 06:59 06:59
Intake Total 1993.2014. 3952.3 / 3952.3
Output Total 3400 / 3400 1830 / 1830
Balance -1405.2 / -1384.9 2122.3 / 2122.3
Physical Exam
-
General: Appears in Distress
HEENT: Normocephalic and Atraumatic
Respiratory: Rales, Rhonchi and Crackles
Cardiac: Tachycardic
Breast: Deferred by me
GI: Soft, Nontender, Nondistended and Normal Bowel Sounds
Genito-urinary: No Costovertebral Tender
Musculoskeletal: No Clubbing, No Cyanosis and No Edema
Skin: Warm
Neuro: Awake and Alert
Psych: Calm
Data Reviewed
-
Diagnostic Radiology: Image personally visualized and interpreted and Report Reviewed by me
CT Scan: Image personally visualized and interpreted and Report Reviewed by me
Ultrasound: Image personally visualized and interpreted and Report Reviewed by me
MRI: Image personally visualized and interpreted and Report Reviewed by me
Medical Tests (Nuc Med, Echo etc): Image personally visualized and interpreted and Report Reviewed by me
Labs: Labs Reviewed by me
Old Records: Reviewed
--- NOTE | 2024-12-14 12:51 | CM ---
[facility] notified that patient has been extubated. Liaison will visit patient.
--- NOTE | 2024-12-14 13:06 | PTCARENOTE ---
Reassessed the patient, awake and alert, interactive w/ families at bedside, on RA, ST in 110s, BP WNL, increased Coreg PO dose and added Melatonin PO for sleep.
--- NOTE | 2024-12-14 14:22 | W.PN.CARDCBS ---
Today's Communication / Plan
-
For repeat transthoracic echo today to reevaluate mitral annular vegetation. We will reassess his mitral regurgitation and LVEF.
Unfortunately he continues to have positive blood cultures from December 12 with MRSA. He continues to have low-grade fevers.
Increase Coreg to 6.25 mg p.o. twice daily.
Continue Lasix. May need to increase as well.
Will need a Panorex and likely all of his teeth removed prior to consideration for CT surgery.
We again had a discussion about the importance of his full commitment to rehab and no further substance abuse.
Impression / Plan
-
Primary Hot Patcher: none prior to admission
Impression:
Presentation with change in mental status 12/03/24
Sepsis
Septic emboli by brain MRI
MSSA bacteremia
Pancreatitis
TME
VDRF
LE
Rhabdomyolysis
Elevated LFTs
Thrombocytopenia
IVDA since age 19
Vaping
Hypokalemia
ECHO 12/04/24: EF 55 to 60%, no regional wall motion abnormalities noted, no evidence of vegetation seen
EKLI 12/07/24: EF 65%, large endocarditis/vegetations attached to mitral annulus measuring ~1x1cm each, mild MR, no Tricuspid or aortic vegetations
Plan:
-History: Patient continues with VDRF in the setting of sepsis, septic shock, TME, brain lesions concerning for embolic disease and rhabdo.
-KELI with evidence of large endocarditis/vegetations attached to the mitral annulus.
- He is now extubated and awake. I had Further discussions with him regarding his condition and prognosis. He understands the severity of his condition.
- Blood cultures are still positive as of December 12 with MRSA and He does still have some low-grade fevers. Continue antibiotics.
-Will repeat transthoracic echo today to reassess LV function and mitral valve. We had lengthy discussion regarding the importance of no further using of substances.
-His proBNP continues to improve but is down to 4000. Increase Coreg to 6.25 mg p.o. twice daily and continue Lasix. Increase Lasix to 40 mg daily in a.m.
- Prior to any consideration for CT surgery clearly would need dental teeth removal and Panorex.
- Creatinine is improved and down to 1.2. Hypernatremia is improved.
- I discussed with him that if we were to consider valve replacement, he would need a clear plan for rehab and treatment of his severe drug addiction.
- for swallowing evaluation today.
- His hemoglobin is stable at 7.8. Thrombocytopenia has resolved, And now he has thrombocytosis.
-His lipase is improving and down to 491.
CC time 32 min
Progress Note - Hot Patcher
Subjective
Date of Service: December 14, 2024
He is awake and denies chest pain or shortness of breath. Still with some tachycardia but denies palpitations. Still with low-grade fevers.
Objective
Labs:
12/14/24 04:39
12/14/24 04:39
Labs
Hgb 7.8 g/dL (13.0-18.0) L 12/14/24 04:39
Hct 22.7 % (39.0-52.0) L 12/14/24 04:39
Plt Count 705 10^3/uL (130-400) H 12/14/24 04:39
Sodium 140 mmol/L (135-145) D 12/14/24 04:39
Potassium 3.4 mmol/L (3.5-5.1) L 12/14/24 04:39
BUN 21 mg/dl (9-20) H 12/14/24 04:39
Creatinine 1.2 mg/dL (0.7-1.3) 12/14/24 04:39
Glucose 105 mg/dl (70-99) H 12/14/24 04:39
Vital Signs and I&O:
Vital Signs
Temp Pulse Resp BP Pulse Ox
100.3 F 108 22 138/102 98
12/14/24 12:00 12/14/24 13:16 12/14/24 07:00 12/14/24 13:16 12/14/24 07:00
Vital Signs
Temp Pulse Resp BP Pulse Ox
100.3 F 108 22 138/102 98
12/14/24 12:00 12/14/24 13:16 12/14/24 07:00 12/14/24 13:16 12/14/24 07:00
Intake & Output
12/12/24 12/13/24 12/14/24 12/15/24
06:59 06:59 06:59 06:59
Intake Total 4365.3 / 4417.8 8 / 2014. 3952.3 / 3952.3
Output Total 3360 / 3360 3400 / 3400 1830 / 1830
Balance 1005.3 / 1057.8 -1405.2 / -1384.9 2122.3 / 2122.3
Physical Exam
Physical Exam
GEN: No distress, awake,
HEENT: supple, anicteric, mmm
LUNGS: CTA, no wheezes/rales
CV: Reg, tachy, S1/S2, 1/6 syst LSB, no gallop
ABD: soft, BS+, NT/ND
EXT: No edema
NEURO: Gross non-focal
SKIN: No rash
--- NOTE | 2024-12-14 15:19 | CM ---
Off Precedex gtt, Picc D/CD, IV/Nafcillin, repeat transthoracic echo today. BCARES visited patient. Father requested BCARES follow-up in a few days. Did not want to discuss SA issues today.. Discharge POC: [facility].
--- NOTE | 2024-12-14 16:00 | PTCARENOTE ---
Reassessed the patient, arousable with voice from nap, on RA, ST in 110s, BP within goal range, Low appetite, continent and needed help with using Urinal, barrier cream applied to buttocks and groin area. Pending Telemetry bed. Families at
bedside, all questions answered.
[2024-12-14] MEDS: KLOR-CON 20 MEQ PO (16:35)
[2024-12-14] MEDS: SUBUTEX 2 MG SL ×2 (17:06→21:39)
[2024-12-14] MEDS: COREG 6.25 MG PO (19:37)
--- NOTE | 2024-12-14 20:03 | PTCARENOTE ---
Received pt from previous RN. Pt is AAOx3, anxious at times. Sinus tach on the monitor, edema UE and LE elevated on pillows. Pt on RA O2 sat 99%, lungs diminished/coarse. Pt uses the urinal in bed. Mouth care provided. SCDs in place. Plan of care
discussed, pt talking about discharge planning. Call cintron in reach. Safe environment maintained.
[2024-12-14] MEDS: MELATONIN 10 MG PO (21:39)
[2024-12-15] VITALS (16 sets, daily range): BP systolic 119–147; BP diastolic 81–109; PULSE 112–115; O2SAT 97; BMI 24.0
[2024-12-15] MEDS: HEPARIN 5000 UNITS SC ×4 (00:16→23:01)
[2024-12-15] MEDS: NAFCIL 108 MG IV ×6 (00:17→20:06)
[2024-12-15] MEDS: TYLENOL 1000 MG PO ×4 (00:17→23:00)
[2024-12-15] MEDS: OXYCONTIN (CONTROLLED RELEASE) 40 MG PO ×2 (00:17→09:07)
[2024-12-15 04:38] LABS: Hematocrit 22.3 % (39.0-52.0); Hemoglobin 7.7 g/dL (13.0-18.0); Mean Corp Hgb Conc. 34.5 g/dL (33.0-37.0); Mean Corpuscular Volume 85.8 fL (80.0-94.0); Platelet Count 758 10^3/uL (130-400); Red Cell Dist. Width 14.0 % (11.5-14.5)
[2024-12-15 04:46] LABS: Blood Urea Nitrogen 19 mg/dl (9-20); Calcium 7.8 mg/dl (8.4-10.2); Carbon Dioxide 25 mmol/L (22-30); Chloride 110 mmol/L (98-107); Estimated Creatinine Clearance 107 ml/min; Glucose 91 mg/dl (70-99); Magnesium 1.7 mg/dl (1.6-2.3); Potassium 3.4 mmol/L (3.5-5.1); Sodium 137 mmol/L (135-145); eGFR > 60.00
[2024-12-15] MEDS: KCL 40 MEQ PO (05:04)
--- NOTE | 2024-12-15 07:30 | SUR.PHASEI ---
Received patient in sleep, arousable to voice, on RA, ST in 110s, BP within goal range, GI/ continent w/ assistance from staff.
--- NOTE | 2024-12-15 08:13 | PHA.VAN.FU ---
Addendum entered and electronically signed by Yumiko Hirsch Abiel 12/15/24 09:25:
Evaluated patient with resident. Agree with assessment and plan below. Will continue dosing by level for now.
Original Note:
Vancomycin Assessment / Plan
- Assessment
Renal Function: SCR Decreasing
WBC's are: WNL
In the past 24 hrs, patient has been: Afebrile
Concomitant Antimicrobials: nafcillin
- Assessment - Therapeutic Drug Monitoring
Extrapolated Cmax (mcg/mL): 24
Peak level was drawn: Appropriately (drawn ~2.25H after END of infusion)
Extrapolated Cmin (mcg/mL): 9.6
Trough Drawn: Appropriately
Levels were drawn: At steady state
Calculated AUC (mcg*h/mL): 379
Calculated ke: 0.0407
Calculated half life (H): 17
Calculated Vd (L): 81.04
Calculated Vanc CL (ml/min): 55.02
- Dosing Plan
Dosing by Level: Re-dose today (1500mg dose x1)
vanc 1500mg q24h predicts AUC 468, Cmax 29.7, Cmin 11.9; based on patient-specific PK
holding off on scheduling dosing since renal function not stable, anticipate may require q12h dosing once returns to baseline
- Monitoring Plan
Random Level: 12/16 0600
- Follow Up
Pharmacy will continue to follow.
Vancomycin Follow UP
- -
Patient Age: 39
Patient Sex: Male
Vancomycin Day #: 13
Indication: Bacteremia
Requesting Provider: Dr. Fofana / Teto
Pertinent Antimicrobial Allergies:
NKDA
Height / Weight:
Height 6 ft 2 in
Actual Weight 84.9 kg
IBW in k.2
Pertinent Past Medical History: IV JOCELIN
- Vital Signs / Lab Results
Temp Pulse Resp BP Pulse Ox
98.1 F 108 18 134/86 98
12/15/24 03:04 12/15/24 06:00 12/15/24 06:00 12/15/24 04:00 12/15/24 06:00
Lab Results - Hematology
12/13/24 12/14/24 12/15/24
04:07 04:39 04:06
WBC 9.1 8.9 7.9
Lab Results - Chemistry
12/13/24 12/14/24 12/15/24
04:07 04:39 04:06
BUN 26 H 21 H 19
Creatinine 1.3 1.2 1.1
Estimated Creat Clear 90 98 107
Albumin 2.5 L 2.3 L
Microbiology Results
12/13/24 04:07 Blood Culture - Preliminary
Blood/Venous No Growth in 48 hours- Final report to follow
12/11/24 03:33 Blood Culture - Preliminary
Blood/Venous No Growth in 4 days- Final report to follow
12/10/24 03:14 Blood Culture - Final
Blood/Venous No Growth - Final Report
12/12/24 03:10 Blood Culture - Preliminary
Blood/Venous Staph aureus MRSA
Gram Stain - Preliminary
12/07/24 04:06 Blood Culture - Final
Blood/Venous Staph aureus MRSA
Gram Stain - Final
Therapeutic Drug Monitoring
Vancomycin Peak 21.9 ug/ml (18-) 12/14/24 14:55
Random Vancomycin 12.8 ug/ml 12/15/24 04:06
[2024-12-15] MEDS: CATAPRES 0.3 MG PO ×4 (09:07→21:55)
[2024-12-15] MEDS: THERAGRAN 1 TABLET PO (09:07)
[2024-12-15] MEDS: COREG 6.25 MG PO ×2 (09:07→20:06)
[2024-12-15] MEDS: SUBUTEX 2 MG SL ×2 (09:07→13:00)
[2024-12-15] MEDS: VITAMIN B1 100 MG PO (09:07)
[2024-12-15] MEDS: LOW STRENGTH ASPIRIN 81 MG PO (09:08)
[2024-12-15] MEDS: LASIX 40 MG PO (09:08)
--- NOTE | 2024-12-15 09:43 | W.PN.ID1 ---
Addendum entered and electronically signed by Maryellen Irene MD 12/15/24 10:13:
Patient needs to be able to stand for panelipse. Order cancelled.
Original Note:
Date of Service
Date of Service: December 15, 2024
Today's Communication
Continue nafcillin/Vanco
Ordered panelipse.
Assessment / Plan
# Complicated sustained Staphylococcus aureus (MRSA/MSSA) bacteremia
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
# Multiple embolic CVA
# LUE PICC associated DVT, PICC dc'd
# Fever resolving
# Leukocytosis; resolved
# s/p Intubated 12/03, extubated 12/12/24
# LE, stable
# Polysubstance abuse (cocaine and fentanyl skin/muscle popper)
# hx MRSA wound abscesses (2010)
# hx of Viridans strep bacteremia (2010)
- 12/14 reepat TTE: 1.6 x 2 cm echodensity MV
- 12/12/24 Blood cx turned positive with MRSA
- 12/14/24 Picc dc'd, tip cx pending
- Repeat blood cx's daily until persistently negative.
- Will leave RUE midline for now as patient with poor venous access.
- There is discrepancy between blood cx PCR identified as MRSA and phenotype - identified as MSSA
Discussed with microbiology and S. aureus experts.
Cefoxitin induced test negative. PBP2a negative.
Best to treat as both MRSA and MSSA.
-> Continue IV Vancomycin and Nafcillin 2g IV q4h (both crosses blood-brain barrier)
Monitor renal function and LFT's while on nafcillin.
-Anticipate 6 weeks of IV antibiotic from negative blood cx.
Case complicated by hx IVDU, home IV abx is not an option.
- If patient continues to improve, will have CT surgery reevaluate for valve surgery.
- Pt with poor dentition. Ordered panelipse.
Chief Complaint
-: Clinical Sepsis, Bacteremia and Other (embolic CVA)
Subjective / Review of Systems
No complaints today.
Vital Signs / Physical Exam
Vital Signs
Vital Signs
Temp Pulse Resp BP Pulse Ox
98.0 F 119 18 146/85 98
12/15/24 08:14 12/15/24 09:08 12/15/24 06:00 12/15/24 09:08 12/15/24 06:00
Physical Exam
Constitutional: Comfortable
Eyes: No Conjunctival Hemorrhage and Sclera Anicteric
Oropharyngeal: Poor Dention
Cardiovascular: Regular Rate and S1/S2
Pulmonary: Clear
Gastrointestinal: Soft, Non Tender, Non Distended and Normal Bowel Sounds
Extremities: Edema (LUE ), Splinter Hemorrhage and Jan[place]ay Lesions
Neurological: AO x 3; Negative Meningeal Signs
Psychological: Calm
Lines: Other (RUE midline)
Objective Data
Lab Data
Lab Results
12/15/24 04:06
12/15/24 04:06
Estimated Creat Clear 107 ml/min 12/15/24 04:06
Lactic Acid 1.3 mmol/L (0.7-2.0) 12/05/24 16:46
Total Bilirubin 0.9 mg/dl (0.2-1.3) 12/14/24 04:39
AST 24 U/L (17-59) 12/14/24 04:39
ALT 18 U/L (0-50) 12/14/24 04:39
Alkaline Phosphatase 55 U/L (38-126) 12/14/24 04:39
Amylase 139 U/L (30-110) H 12/05/24 04:04
Most recent labs reviewed.
Micro Results:
12/12/24 03:10 Blood Culture - Preliminary
Blood/Venous Staph aureus MRSA
Gram Stain - Preliminary
12/15/24 04:33 Blood Culture - Pending
Blood/Venous
12/13/24 04:07 Blood Culture - Preliminary
Blood/Venous No Growth in 48 hours- Final report to follow
12/11/24 03:33 Blood Culture - Preliminary
Blood/Venous No Growth in 4 days- Final report to follow
12/10/24 03:14 Blood Culture - Final
Blood/Venous No Growth - Final Report
12/14/24 16:37 Blood Culture - Pending
Blood/Venous
12/14/24 12:53 Catheter Tip Culture - Pending
Picc
12/07/24 04:06 Blood Culture - Final
Blood/Venous Staph aureus MRSA
Gram Stain - Final
12/03/24 08:20 Blood Culture - Final
Blood/Venous Staph aureus MRSA
Gram Stain - Final
12/03/24 09:21 Blood Culture - Final
Blood/Venous Staph aureus MRSA
Gram Stain - Final
12/05/24 16:46 Blood Culture - Final
Blood/Venous Staph aureus MRSA
Gram Stain - Final
12/05/24 13:38 Blood Culture - Final
Blood/Venous Staph aureus MRSA
Gram Stain - Final
12/09/24 03:54 Blood Culture - Preliminary
Blood/Venous Staph aureus MRSA
Gram Stain - Preliminary
12/08/24 03:02 Blood Culture - Preliminary
Blood/Venous Staph aureus MRSA
Gram Stain - Preliminary
12/03/24 08:38 Urine Culture - Final
Urine S aureus-Methicillin Sensitive
12/03/24 18:44 MRSA Screen - Final
Nose No Methicillin Resistant Staphylococcus aureus isolated.
Imaging:
12/05/24 CT a/p: Mild inflammatory change adjacent to the body and tail of the pancreas, suggestive of mild pancreatitis. No peripancreatic fluid collection appreciated. No evidence of intestinal obstruction or bowel inflammatory process. Study is
slightly limited by lack of intravenous or oral contrast. Gallbladder sludge without evidence of acute cholecystitis. No radiopaque gallstones are seen.
12/04/24 MRI brain: Numerous scattered acute infarctions in a distribution that is most suggestive of embolic phenomenon in the setting of known IV drug abuse. Multiple small microhemorrhages are also demonstrated.
12/03/24 CXR: Clear lungs.
12/03/[address]: Possible cortical petechial hemorrhages in the left frontal lobe and left occipital lobe. Possible small old infarct, periventricular small vessel ischemic disease or edema due to underlying mass in the left occipital lobe.
--- NOTE | 2024-12-15 10:36 | W.PN.CARDCBS ---
Today's Communication / Plan
-
Increase Coreg to 12.5 mg p.o. twice daily. Continue Lasix 40 mg p.o. daily.
Repeat proBNP as volume status difficult to assess with hypoalbuminemia
Sodium and creatinine are now normal. Replete potassium
Neck step would be to get Panorex and evaluate his dentition, however I suspect all of his teeth will need to be pulled
Repeat echo with continued vegetation on mitral valve annulus.
Last positive culture was from December 12.
Case was discussed with CT surgery. They continue to follow
Impression / Plan
-
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
Impression:
Presentation with change in mental status 12/03/24
Sepsis
Septic emboli by brain MRI
MSSA bacteremia
Pancreatitis
TME
VDRF
LE
Rhabdomyolysis
Elevated LFTs
Thrombocytopenia
IVDA since age 19
Vaping
Hypokalemia
ECHO 12/04/24: EF 55 to 60%, no regional wall motion abnormalities noted, no evidence of vegetation seen
KELI 12/07/24: EF 65%, large endocarditis/vegetations attached to mitral annulus measuring ~1x1cm each, mild MR, no Tricuspid or aortic vegetations
Echo 12/14/24: EF 60-65%, thick echodensity of mitral annulus 1.6x20cm, trace MR
Plan:
-History: Patient continues with VDRF in the setting of sepsis, septic shock, TME, brain lesions concerning for embolic disease and rhabdo.
-KELI with evidence of large endocarditis/vegetations attached to the mitral annulus.
- He is now extubated and awake. I had Further discussions with him regarding his condition and prognosis. He understands the severity of his condition.
- Blood cultures are still positive as of December 12 with MRSA and He does still have some low-grade fevers. Cultures from December 13 and December 14 remain negative.
-I reviewed with him his transthoracic echo. He still has a large echodensity on his mitral annulus consistent with endocarditis.
-He remains tachycardic. Will continue to titrate carvedilol to 12.5 mg p.o. twice daily. He has marked edema but albumin is low at 2.3. Will continue Lasix 40 mg daily.
-Check repeat proBNP as volume status is difficult to assess with marked edema. Replete potassium
- I discussed case with CT surgery and they continue to follow. Next step will be Panorex study to evaluate his dentition.
- Creatinine is improved and down to 1.21 hyponatremia has resolved and sodium now 137.
- I again discussed with him that if we were to consider valve replacement, he would need a clear plan for rehab and treatment of his severe drug addiction.
- Increase activity and begin physical therapy.
-Agree with transfer out of the intensive care unit.
-His lipase is improving and down to 491.
Progress Note - Coin Machine Collector Supervisor
Subjective
Date of Service: December 15, 2024
Continues to slowly improve. No new fevers. Very weak and fatigued.
Objective
Labs:
12/15/24 04:06
12/15/24 04:06
Labs
Hgb 7.7 g/dL (13.0-18.0) L 12/15/24 04:06
Hct 22.3 % (39.0-52.0) L 12/15/24 04:06
Plt Count 758 10^3/uL (130-400) H 12/15/24 04:06
Sodium 137 mmol/L (135-145) 12/15/24 04:06
Potassium 3.4 mmol/L (3.5-5.1) L 12/15/24 04:06
BUN 19 mg/dl (9-20) 12/15/24 04:06
Creatinine 1.1 mg/dL (0.7-1.3) 12/15/24 04:06
Glucose 91 mg/dl (70-99) 12/15/24 04:06
Vital Signs and I&O:
Vital Signs
Temp Pulse Resp BP Pulse Ox
98.0 F 119 18 146/85 98
12/15/24 08:14 12/15/24 09:08 12/15/24 06:00 12/15/24 09:08 12/15/24 06:00
Vital Signs
Temp Pulse Resp BP Pulse Ox
98.0 F 119 18 146/85 98
12/15/24 08:14 12/15/24 09:08 12/15/24 06:00 12/15/24 09:08 12/15/24 06:00
Intake & Output
12/13/24 12/14/24 12/15/24 12/16/24
06:59 06:59 06:59 06:59
Intake Total 1993.8 / 2014. 3952.3 / 4027.3 1952
Output Total 3400 / 3400 1830 / 1830 1400 / 1400 500 / 500
Balance -1405.2 / -1384.9 2122.3 / 2197.3 553 / 553 -500 / -500
Physical Exam
Physical Exam
GEN: No distress, awake, Ox3
HEENT: supple, anicteric, mmm
LUNGS: scatt rhonchi
CV: Reg, S1/S2, 1/6 syst LSB, S3+
ABD: soft, BS+, NT/ND
EXT: ++ edema
NEURO: Gross non-focal
SKIN: No rash
[2024-12-15] MEDS: VANCOCIN 530 MG IV (10:54)
[2024-12-15] MEDS: KLOR-CON 20 MEQ PO (10:54)
--- NOTE | 2024-12-15 13:25 | W.PN.UPDATE ---
Update Note
Progress Note Update
The patient is hemodynamically stable from a cardiovascular standpoint and is severely debilitated. There is no urgent/emergency indication for cardiac surgery at this time. Since he cannot undergo the necessary work up at this time (i.e. panorex
and dental eval), we recommend sending him to a facility where this can be done prior to putting him through cardiac surgery with the chance of reinfected his prostheses. Certainly, if he decompensates, has sudden severe MR or AI, then we can
re-engage.
--- NOTE | 2024-12-15 14:31 | W.PN.HOSP.TC ---
Today's Communication/Plan
-
Patient downgraded from the ICU.
Plan to transfer to tertiary center.
Discussed with mother at bedside, needs more time to discuss with the rest of the family.
Assessment / Plan
Assessment / Plan
Impression:
Patient is a 39-year-old male with a medical history of polysubstance abuse (skin popping with fentanyl) who was admitted after presentation with altered mental status. He was brought in by his parents with tremors and confusion. His mental status
abruptly declined and he was intubated for airway protection. CT brain showed possible left occipital lobe mass. His blood cultures are positive for MRSA. He is currently being managed in the ICU for treatment of encephalopathy and bacteremia.
Patient extubated.
Constant positive blood culture, infectious disease recommending to remove PICC line.
Reevaluated again by CT surgery, patient was not able to stand for panelipse, cannot be dentally cleared.
CT recommend sending the patient to a facility where he can get work up and give dental clearance.
Assessment/plan:
Septic shock secondary to MRSA/MSSA bacteremia:
- Remains on vasopressors
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
- Still persistently febrile, leukocytosis improving
- Transesophageal echocardiogram 12/06 showed large mitral annulus vegetation
- No current plans for cardiothoracic surgery due to critical illness
- ID following, continue antibiotics with vancomycin and nafcillin, repeat cultures still positive
12/13
Repeat blood cultures so far negative.
Continue to biotic.
Patient extubated
12/14
PICC line discontinued.
CT surgery to evaluate again for consideration of any intervention.
12/15
[address] recommend sending the patient to a facility where he can get work up and give dental clearance.
Discussed with mother at bedside, family asking for 1 to 2 days to think about the transfer
No urgent need for transfer as of now.
Acute hypoxic respiratory failure.
Ventilation dependent respiratory failure.
12/13
Patient extubated
Acute toxic metabolic encephalopathy:
- Cautiously weaning ketamine and Versed drips and transitioning to Precedex, eyes open this morning and able to follow simple commands
- Continue EEG monitoring, no acute epileptiform activity captured
- Encephalopathy likely multifactorial due to bacteremia, opiate withdrawal, and and suspected septic emboli to brain
- MRI brain consistent with suspicion for septic emboli, repeat CT brain shows stable findings
- Continue mechanical ventilation for airway protection, vent management per private household worker
- Seroquel dose increased to 50 mg daily and 100 mg at night
- Will titrate down on opiate withdrawal medications as able
12/13
Mental status improved.
Currently extubated
LE:
- Creatinine improved
Hypokalemia:
- Mild, replete
- Monitor
Rhabdomyolysis:
- Continue IV fluids
Elevated LFTs:
- Suspect due to severe sepsis
- Resolved, monitor with treatment as above
Pancreatitis:
- Elevated lipase, CT imaging with evidence of pancreatic inflammation
- Triglycerides elevated but improving, discontinued propofol for sedation, trend triglyceride levels
- Currently tolerating tube feeds
Lactic acidosis:
- Resolved, continue to monitor
Polysubstance abuse:
- Long history of injection drug abuse
- Titrate clonidine and tizanidine, Versed and ketamine drips as able
- Can initiate buprenorphine treatment when tolerating p.o.
CODE STATUS: Full code
DVT prophylaxis: SCDs
Diet: Regular diet
Family confusion: Discussed with mother and sister at bedside/discussed with mother and father at bedside
Total time spent on today's encounter was 75 minutes which included time spent in counseling the patient/family regarding diagnosis and treatment plan as listed above, goals of care, and symptom management. Case was discussed with nursing staff,
specialists, and care coordinators/case management. All labs and imaging personally reviewed by me. Remainder the time spent in detailed review of previous records, lab data, imaging, and other medical provider documentation.
Anticipated Discharge: > 48 hours
Subjective/Interval History
-
Date of Service: December 15, 2024
Patient is more awake and oriented.
Downgraded from diet yesterday.
Discussed with family at bedside.
Patient was not able to stand for panelipse.
Objective Data
-
Labs:
Laboratory Results
12/15/24
04:06
WBC 7.9
Hgb 7.7 L
Hct 22.3 L
Plt Count 758 H
Sodium 137
Potassium 3.4 L
Chloride 110 H
Carbon Dioxide 25
BUN 19
Creatinine 1.1
Glucose 91
Calcium 7.8 L
Vital Signs:
Vital Signs
Temp Pulse Resp BP Pulse Ox
98.0 F 98 18 131/90 99
12/15/24 11:20 12/15/24 13:00 12/15/24 12:00 12/15/24 13:00 12/15/24 12:00
I&O
12/14/24 12/15/24 12/16/24
06:59 06:59 06:59
Intake Total 3952.3 / 4027.3 1952
Output Total 1830 / 1830 1400 / 1400 500 / 500
Balance 2122.3 / 2197.3 553 / 553 -500 / -500
Physical Exam
-
General: Appears in Distress
HEENT: Normocephalic and Atraumatic
Respiratory: Rales, Rhonchi and Crackles
Cardiac: Tachycardic
Breast: Deferred by me
GI: Soft, Nontender, Nondistended and Normal Bowel Sounds
Genito-urinary: No Costovertebral Tender
Musculoskeletal: No Clubbing, No Cyanosis and No Edema
Skin: Warm
Neuro: Awake and Alert
Psych: Calm
Data Reviewed
-
Diagnostic Radiology: Image personally visualized and interpreted and Report Reviewed by me
CT Scan: Image personally visualized and interpreted and Report Reviewed by me
Ultrasound: Image personally visualized and interpreted and Report Reviewed by me
MRI: Image personally visualized and interpreted and Report Reviewed by me
Medical Tests (Nuc Med, Echo etc): Image personally visualized and interpreted and Report Reviewed by me
Labs: Labs Reviewed by me
Old Records: Reviewed
[2024-12-15] MEDS: OXYCONTIN (CONTROLLED RELEASE) 20 MG PO ×2 (16:21→23:01)
--- NOTE | 2024-12-15 16:47 | CM ---
Plan to discharge to tertiary center for complex needs and care. Family wants to discuss amongst themselves before making decision. Discharge POC: TBD.
[2024-12-15] MEDS: SUBUTEX 4 MG SL ×2 (17:37→21:55)
--- NOTE | 2024-12-15 21:23 | PTCARENOTE ---
Assumed care of pt at 1900. Pt is A/O x4, pleasant and cooperative with care. Currently telemetry level of care. ST 100s-110s on monitor, SpO2 99% on RA. Physical assessment as documented in nursing shift assessment flowsheet.
[2024-12-15] MEDS: MELATONIN 10 MG PO (21:55)
[2024-12-16] VITALS (7 sets, daily range): BP systolic 112–146; BP diastolic 65–96; BMI 24.5
[2024-12-16] MEDS: NAFCIL 108 MG IV ×6 (00:07→21:04)
[2024-12-16 03:57] LABS: Hematocrit 21.0 % (39.0-52.0); Hemoglobin 7.3 g/dL (13.0-18.0); Mean Corp Hgb Conc. 34.8 g/dL (33.0-37.0); Mean Corpuscular Volume 86.1 fL (80.0-94.0); Platelet Count 700 10^3/uL (130-400); Red Cell Dist. Width 14.3 % (11.5-14.5)
[2024-12-16 04:12] LABS: Blood Urea Nitrogen 17 mg/dl (9-20); Calcium 7.5 mg/dl (8.4-10.2); Carbon Dioxide 25 mmol/L (22-30); Chloride 110 mmol/L (98-107); Estimated Creatinine Clearance 107 ml/min; Glucose 95 mg/dl (70-99); Potassium 3.2 mmol/L (3.5-5.1); Sodium 136 mmol/L (135-145); eGFR > 60.00
[2024-12-16] MEDS: KCL 40 MEQ PO (04:52)
--- NOTE | 2024-12-16 07:35 | W.PN.ID1 ---
Date of Service
Date of Service: December 16, 2024
Today's Communication
Continue current antibiotics.
Assessment / Plan
# Complicated sustained Staphylococcus aureus (MRSA/MSSA) bacteremia
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
# Multiple embolic CVA
# LUE PICC associated DVT, PICC dc'd
# Fever resolving
# Leukocytosis; resolved
# s/p Intubated 12/03, extubated 12/12/24
# LE, stable
# Polysubstance abuse (cocaine and fentanyl skin/muscle popper)
# hx MRSA wound abscesses (2010)
# hx of Viridans strep bacteremia (2010)
- 12/14 reepat TTE: 1.6 x 2 cm echodensity MV
- 12/12/24 Blood cx turned positive with MRSA
- 12/14/24 Picc dc'd, tip cx pending
- Repeat blood cx's daily until persistently negative.
- Will leave RUE midline for now as patient with poor venous access.
- There is discrepancy between blood cx PCR (identified as MRSA) and phenotype (identified as MSSA)
Discussed with microbiology and S. aureus experts.
Cefoxitin induced test negative. PBP2a negative.
Best to treat as both MRSA and MSSA.
-> Continue IV Vancomycin and Nafcillin 2g IV q4h (both crosses blood-brain barrier)
- Monitor renal function and LFT's while on nafcillin.
- Close monitoring of vancomycin levels to prevent nephrotoxicity.
-Anticipate 6 weeks of IV antibiotic from negative blood cx.
Case complicated by hx IVDU, home IV abx is not an option.
- If patient continues to improve, will have CT surgery reevaluate for valve surgery.
- Pt with poor dentition. Ordered panelipse.
Chief Complaint
-: Clinical Sepsis, Bacteremia and Other (embolic CVA)
Subjective / Review of Systems
Patient seen and examined. Reports no specific complaints this a.m. Denies pain. Denies fevers. Patient has remained afebrile.
Vital Signs / Physical Exam
Vital Signs
Vital Signs
Temp Pulse Resp BP Pulse Ox
98.1 F 103 15 123/76 98
12/16/24 03:44 12/16/24 04:00 12/16/24 04:00 12/16/24 04:00 12/16/24 04:00
Physical Exam
Constitutional: Comfortable
Eyes: No Conjunctival Hemorrhage and Sclera Anicteric
Oropharyngeal: Poor Dention
Cardiovascular: Regular Rate and S1/S2; Negative Murmur
Pulmonary: Clear
Gastrointestinal: Soft, Non Tender, Non Distended and Normal Bowel Sounds
Extremities: Edema (LUE ), Splinter Hemorrhage and Janeway Lesions
Neurological: AO x 3; Negative Meningeal Signs
Psychological: Calm
Lines: Other (RUE midline)
Objective Data
Lab Data
Lab Results
12/16/24 03:40
12/16/24 03:40
Estimated Creat Clear 107 ml/min 12/16/24 03:40
Lactic Acid 1.3 mmol/L (0.7-2.0) 12/05/24 16:46
Total Bilirubin 0.9 mg/dl (0.2-1.3) 12/14/24 04:39
AST 24 U/L (17-59) 12/14/24 04:39
ALT 18 U/L (0-50) 12/14/24 04:39
Alkaline Phosphatase 55 U/L (38-126) 12/14/24 04:39
Amylase 139 U/L (30-110) H 12/05/24 04:04
Most recent labs reviewed.
Micro Results:
12/12/24 03:10 Blood Culture - Preliminary
Blood/Venous Staph aureus MRSA
Gram Stain - Preliminary
12/15/24 04:33 Blood Culture - Preliminary
Blood/Venous No Growth in 24 hours- Final report to follow
12/13/24 04:07 Blood Culture - Preliminary
Blood/Venous No Growth in 72 hours- Final report to follow
12/16/24 03:40 Blood Culture - Pending
Blood/Venous
12/11/24 03:33 Blood Culture - Final
Blood/Venous No Growth - Final Report
12/14/24 16:37 Blood Culture - Preliminary
Blood/Venous No Growth in 24 hours- Final report to follow
12/14/24 12:53 Catheter Tip Culture - Preliminary
Picc No Growth After 18-24 Hours
12/10/24 03:14 Blood Culture - Final
Blood/Venous No Growth - Final Report
12/07/24 04:06 Blood Culture - Final
Blood/Venous Staph aureus MRSA
Gram Stain - Final
12/03/24 08:20 Blood Culture - Final
Blood/Venous Staph aureus MRSA
Gram Stain - Final
12/03/24 09:21 Blood Culture - Final
Blood/Venous Staph aureus MRSA
Gram Stain - Final
12/05/24 16:46 Blood Culture - Final
Blood/Venous Staph aureus MRSA
Gram Stain - Final
12/05/24 13:38 Blood Culture - Final
Blood/Venous Staph aureus MRSA
Gram Stain - Final
12/09/24 03:54 Blood Culture - Preliminary
Blood/Venous Staph aureus MRSA
Gram Stain - Preliminary
12/08/24 03:02 Blood Culture - Preliminary
Blood/Venous Staph aureus MRSA
Gram Stain - Preliminary
12/03/24 08:38 Urine Culture - Final
Urine S aureus-Methicillin Sensitive
12/03/24 18:44 MRSA Screen - Final
Nose No Methicillin Resistant Staphylococcus aureus isolated.
Imaging:
12/05/24 CT a/p: Mild inflammatory change adjacent to the body and tail of the pancreas, suggestive of mild pancreatitis. No peripancreatic fluid collection appreciated. No evidence of intestinal obstruction or bowel inflammatory process. Study is
slightly limited by lack of intravenous or oral contrast. Gallbladder sludge without evidence of acute cholecystitis. No radiopaque gallstones are seen.
12/04/24 MRI brain: Numerous scattered acute infarctions in a distribution that is most suggestive of embolic phenomenon in the setting of known IV drug abuse. Multiple small microhemorrhages are also demonstrated.
12/03/24 CXR: Clear lungs.
12/03/[address]: Possible cortical petechial hemorrhages in the left frontal lobe and left occipital lobe. Possible small old infarct, periventricular small vessel ischemic disease or edema due to underlying mass in the left occipital lobe.
[2024-12-16] MEDS: THERAGRAN 1 TABLET PO (07:56)
[2024-12-16] MEDS: VITAMIN B1 100 MG PO (07:56)
[2024-12-16] MEDS: SUBUTEX 4 MG SL ×2 (07:56→13:13)
[2024-12-16] MEDS: LOW STRENGTH ASPIRIN 81 MG PO (07:56)
[2024-12-16] MEDS: TYLENOL 1000 MG PO ×2 (07:56→16:38)
[2024-12-16] MEDS: CATAPRES 0.3 MG PO ×4 (07:56→22:56)
[2024-12-16] MEDS: OXYCONTIN (CONTROLLED RELEASE) 20 MG PO (07:56)
[2024-12-16] MEDS: LASIX 40 MG PO (07:56)
[2024-12-16] MEDS: COREG 6.25 MG PO ×2 (07:56→21:08)
[2024-12-16] MEDS: HEPARIN 5000 UNITS SC ×2 (07:57→16:38)
--- NOTE | 2024-12-16 08:04 | W.PN.CARDCBS ---
Today's Communication / Plan
-
Appreciate CT surgical input. Plan would be for rehab and IV abx and then reeval by CT surgery as outpt in the absence of emergent decompenstation.
Echo reviewed with pt. Still has a large echodensity on his mitral annulus consistent with endocarditis.
He understands the severity of his condition.
Blood cultures positive as of December 12 with MRSA. Cultures from December 13 and December 14 remain negative.
Replete lytes as needed.
Cont oral diuresis, lasix 40 mg daily. Some of his edema is third spacing from low protein/nutrition state.
Remains tachycardic, Cont Coreg 12.5 mg BID increased December 15. May consider further increase next 24 hrs if HR remains >100
Impression / Plan
-
Primary Bingo Cashier: none prior to admission
Impression:
Presentation with change in mental status 12/03/24
Sepsis
Septic emboli by brain MRI
MSSA bacteremia
Pancreatitis
TME
VDRF
LE
Rhabdomyolysis
Elevated LFTs
Thrombocytopenia
IVDA since age 19
Vaping
Hypokalemia
ECHO 12/04/24: EF 55 to 60%, no regional wall motion abnormalities noted, no evidence of vegetation seen
KELI 12/07/24: EF 65%, large endocarditis/vegetations attached to mitral annulus measuring ~1x1cm each, mild MR, no Tricuspid or aortic vegetations
Echo 12/14/24: EF 60-65%, thick echodensity of mitral annulus 1.6x20cm, trace MR
Plan:
-History: Patient continues with VDRF in the setting of sepsis, septic shock, TME, brain lesions concerning for embolic disease and rhabdo.
-KELI with evidence of large endocarditis/vegetations attached to the mitral annulus.
Appreciate CT surgical input. Plan would be for rehab and IV abx and then reeval by CT surgery as outpt in the absence of emergent decompenstation.
Echo reviewed with pt. Still has a large echodensity on his mitral annulus consistent with endocarditis.
He understands the severity of his condition.
Blood cultures positive as of December 12 with MRSA. Cultures from December 13 and December 14 remain negative.
Replete lytes as needed.
Cont oral diuresis, lasix 40 mg daily. Some of his edema is third spacing from low protein/nutrition state.
Remains tachycardic, Cont Coreg 12.5 mg BID increased December 15. May consider further increase next 24 hrs if HR remains >100
His lipase is improving
He has severe deconditioning. PT/OT and placement for IV abx and rehab.
Progress Note - Bingo Cashier
Subjective
Date of Service: December 16, 2024
Pt seen and examined. No cp or dyspnea.
Objective
Labs:
12/16/24 03:40
12/16/24 03:40
Labs
Hgb 7.3 g/dL (13.0-18.0) L 12/16/24 03:40
Hct 21.0 % (39.0-52.0) L 12/16/24 03:40
Plt Count 700 10^3/uL (130-400) H 12/16/24 03:40
Sodium 136 mmol/L (135-145) 12/16/24 03:40
Potassium 3.2 mmol/L (3.5-5.1) L 12/16/24 03:40
BUN 17 mg/dl (9-20) 12/16/24 03:40
Creatinine 1.1 mg/dL (0.7-1.3) 12/16/24 03:40
Glucose 95 mg/dl (70-99) 12/16/24 03:40
Vital Signs and I&O:
Vital Signs
Temp Pulse Resp BP Pulse Ox
98.1 F 103 15 123/76 98
12/16/24 03:44 12/16/24 04:00 12/16/24 04:00 12/16/24 04:00 12/16/24 04:00
Vital Signs
Temp Pulse Resp BP Pulse Ox
98.1 F 103 15 123/76 98
12/16/24 03:44 12/16/24 04:00 12/16/24 04:00 12/16/24 04:00 12/16/24 04:00
Intake & Output
12/14/24 12/15/24 12/16/24 12/17/24
06:59 06:59 06:59 06:59
Intake Total 3952.3 / 4027.3 1952 / 1952 2027 / 2027
Output Total 1830 / 1830 1400 / 1400 1900 / 1900
Balance 2122.3 / 2197.3 553 / 553 128 / 128
Physical Exam
Physical Exam
General: No acute distress, awake and alert, lethargic
Neck: Negative JVD
Heart: Tachycardic, Negative S3 positive S1/S2, Negative S4, No murmur
Lungs: CTA b/l, negative wheezes/rales/rhonchi
Abd: Positive BS, NT/ND, neg rebound/rigidity/guarding
Ext: Negative cyanosis/clubbing/edema
Neuro: nonfocal
--- NOTE | 2024-12-16 08:49 | PHA.VAN.FU ---
Vancomycin Assessment / Plan
- Assessment
Renal Function: Stable
WBC's are: WNL
In the past 24 hrs, patient has been: Afebrile
Concomitant Antimicrobials: Nafcillin
- Assessment - Therapeutic Drug Monitoring
Random Level: 14- drawn ~17 hr after vancomycin 1500mg dose.
- Dosing Plan
Dosing by Level: Re-dose today (vancomycin 1500mg x 1 dose)
- Monitoring Plan
Random Level: 12/17 06
- Follow Up
Pharmacy will continue to follow.
Vancomycin Follow UP
- -
Patient Age: 39
Patient Sex: Male
Vancomycin Day #: 14
Indication: Bacteremia
Requesting Provider: Dr. Fofana / Teto
Pertinent Antimicrobial Allergies:
NKDA
Height / Weight:
Height 6 ft 2 in
Actual Weight 86.6 kg
IBW in k.2
Pertinent Past Medical History: IV JOCELIN
- Vital Signs / Lab Results
Temp Pulse Resp BP Pulse Ox
98.1 F 103 15 123/76 98
12/16/24 03:44 12/16/24 04:00 12/16/24 04:00 12/16/24 04:00 12/16/24 04:00
Lab Results - Hematology
12/14/24 12/15/24 12/16/24
04:39 04:06 03:40
WBC 8.9 7.9 7.0
Lab Results - Chemistry
12/14/24 12/15/24 12/16/24
04:39 04:06 03:40
BUN 21 H 19 17
Creatinine 1.2 1.1 1.1
Estimated Creat Clear 98 107 107
Albumin 2.3 L
Microbiology Results
12/12/24 03:10 Blood Culture - Preliminary
Blood/Venous Staph aureus MRSA
Gram Stain - Preliminary
12/15/24 04:33 Blood Culture - Preliminary
Blood/Venous No Growth in 24 hours- Final report to follow
12/13/24 04:07 Blood Culture - Preliminary
Blood/Venous No Growth in 72 hours- Final report to follow
12/11/24 03:33 Blood Culture - Final
Blood/Venous No Growth - Final Report
12/14/24 16:37 Blood Culture - Preliminary
Blood/Venous No Growth in 24 hours- Final report to follow
12/14/24 12:53 Catheter Tip Culture - Preliminary
Picc No Growth After 18-24 Hours
12/10/24 03:14 Blood Culture - Final
Blood/Venous No Growth - Final Report
Therapeutic Drug Monitoring
Vancomycin Peak 21.9 ug/ml (18-) 12/14/24 14:55
Random Vancomycin 14.0 ug/ml 12/16/24 03:40
[2024-12-16] MEDS: VANCOCIN 530 MG IV (09:47)
[2024-12-16] MEDS: KCL ELIXIR 40 MEQ PO (10:18)
--- NOTE | 2024-12-16 12:54 | W.PN.HOSP.TC ---
Today's Communication/Plan
-
Patient downgraded from the ICU.
Plan to transfer to tertiary center.
Discussed with mother at bedside, needs more time to discuss with the rest of the family.
Assessment / Plan
Assessment / Plan
Impression:
Patient is a 39-year-old male with a medical history of polysubstance abuse (skin popping with fentanyl) who was admitted after presentation with altered mental status. He was brought in by his parents with tremors and confusion. His mental status
abruptly declined and he was intubated for airway protection. CT brain showed possible left occipital lobe mass. His blood cultures are positive for MRSA. He is currently being managed in the ICU for treatment of encephalopathy and bacteremia.
Patient extubated.
Constant positive blood culture, infectious disease recommending to remove PICC line.
Reevaluated again by CT surgery, patient was not able to stand for panelipse, cannot be dentally cleared.
CT recommend sending the patient to a facility where he can get work up and give dental clearance.
Discussed with family, awaiting decision.
Assessment/plan:
Septic shock secondary to MRSA/MSSA bacteremia:
- Remains on vasopressors
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
- Still persistently febrile, leukocytosis improving
- Transesophageal echocardiogram 12/06 showed large mitral annulus vegetation
- No current plans for cardiothoracic surgery due to critical illness
- ID following, continue antibiotics with vancomycin and nafcillin, repeat cultures still positive
12/13
Repeat blood cultures so far negative.
Continue to biotic.
Patient extubated
12/14
PICC line discontinued.
CT surgery to evaluate again for consideration of any intervention.
12/15
CT recommend sending the patient to a facility where he can get work up and give dental clearance.
Discussed with mother at bedside, family asking for 1 to 2 days to think about the transfer
No urgent need for transfer as of now.
Acute hypoxic respiratory failure.
Ventilation dependent respiratory failure.
12/13
Patient extubated
Acute toxic metabolic encephalopathy:
- Cautiously weaning ketamine and Versed drips and transitioning to Precedex, eyes open this morning and able to follow simple commands
- Continue EEG monitoring, no acute epileptiform activity captured
- Encephalopathy likely multifactorial due to bacteremia, opiate withdrawal, and and suspected septic emboli to brain
- MRI brain consistent with suspicion for septic emboli, repeat CT brain shows stable findings
- Continue mechanical ventilation for airway protection, vent management per food and nutrition supervisor
- Seroquel dose increased to 50 mg daily and 100 mg at night
- Will titrate down on opiate withdrawal medications as able
12/13
Mental status improved.
Currently extubated
LE:
- Creatinine improved
Hypokalemia:
- Mild, replete
- Monitor
Rhabdomyolysis:
- Continue IV fluids
Elevated LFTs:
- Suspect due to severe sepsis
- Resolved, monitor with treatment as above
Pancreatitis:
- Elevated lipase, CT imaging with evidence of pancreatic inflammation
- Triglycerides elevated but improving, discontinued propofol for sedation, trend triglyceride levels
- Currently tolerating tube feeds
Lactic acidosis:
- Resolved, continue to monitor
Polysubstance abuse:
- Long history of injection drug abuse
- Titrate clonidine and tizanidine, Versed and ketamine drips as able
- Can initiate buprenorphine treatment when tolerating p.o.
CODE STATUS: Full code
DVT prophylaxis: SCDs
Diet: Regular diet
Family confusion: Discussed with mother and sister at bedside/discussed with mother and father at bedside
Total time spent on today's encounter was 75 minutes which included time spent in counseling the patient/family regarding diagnosis and treatment plan as listed above, goals of care, and symptom management. Case was discussed with nursing staff,
specialists, and care coordinators/case management. All labs and imaging personally reviewed by me. Remainder the time spent in detailed review of previous records, lab data, imaging, and other medical provider documentation.
Anticipated Discharge: > 48 hours
Subjective/Interval History
-
Date of Service: December 16, 2024
Patient is more awake and oriented.
Denies chest pain or shortness of breath
Discussed with mother at bedside.
Objective Data
-
Labs:
Laboratory Results
12/16/24
03:40
WBC 7.0
Hgb 7.3 L
Hct 21.0 L
Plt Count 700 H
Sodium 136
Potassium 3.2 L
Chloride 110 H
Carbon Dioxide 25
BUN 17
Creatinine 1.1
Glucose 95
Calcium 7.5 L
Vital Signs:
Vital Signs
Temp Pulse Resp BP Pulse Ox
98.5 F 101 18 121/85 98
12/16/24 08:00 12/16/24 10:00 12/16/24 10:00 12/16/24 08:59 12/16/24 10:00
I&O
12/15/24 12/16/24 12/17/24
06:59 06:59 06:59
Intake Total 1952 / 1952
Output Total 1400 / 1400 1900 / 1900 650 / 650
Balance 553 / 553 128 / 128 -650 / -650
Physical Exam
-
General: Appears in Distress
HEENT: Normocephalic and Atraumatic
Respiratory: Rales, Rhonchi and Crackles
Cardiac: Tachycardic
Breast: Deferred by me
GI: Soft, Nontender, Nondistended and Normal Bowel Sounds
Genito-urinary: No Costovertebral Tender
Musculoskeletal: No Clubbing, No Cyanosis and No Edema
Skin: Warm
Neuro: Awake and Alert
Psych: Calm
Data Reviewed
-
Diagnostic Radiology: Image personally visualized and interpreted and Report Reviewed by me
CT Scan: Image personally visualized and interpreted and Report Reviewed by me
Ultrasound: Image personally visualized and interpreted and Report Reviewed by me
MRI: Image personally visualized and interpreted and Report Reviewed by me
Medical Tests (Nuc Med, Echo etc): Image personally visualized and interpreted and Report Reviewed by me
Labs: Labs Reviewed by me
Old Records: Reviewed
[2024-12-16] MEDS: MELATONIN 10 MG PO (21:05)
[2024-12-16] MEDS: SUBUTEX 8 MG SL (21:05)
[2024-12-17] MEDS: NAFCIL 108 MG IV ×7 (00:22→23:22)
[2024-12-17] MEDS: HEPARIN 5000 UNITS SC ×4 (00:23→23:22)
[2024-12-17] MEDS: TYLENOL 1000 MG PO ×4 (00:23→23:22)
[2024-12-17 03:20] VITALS: BP 149/92
--- NOTE | 2024-12-17 07:49 | PHA.VAN.FU ---
Vancomycin Assessment / Plan
- Assessment
In the past 24 hrs, patient has been: Afebrile
Concomitant Antimicrobials: nafcillin
- Assessment - Therapeutic Drug Monitoring
Random Level: 13.2 - drawn ~21.5H after previous dose of 1500mg
- Dosing Plan
Dosing by Level: Re-dose today (Vanc 1500mg x1)
SCR continues to improve but currently maintaining levels on once daily dosing
- Monitoring Plan
Random Level: 12/18 0600
- Follow Up
Pharmacy will continue to follow.
Vancomycin Follow UP
- -
Patient Age: 39
Patient Sex: Male
Vancomycin Day #: 15
Indication: Bacteremia
Requesting Provider: Dr. Fofana / Teto
Pertinent Antimicrobial Allergies:
NKDA
Height / Weight:
Height 6 ft 2 in
Actual Weight 86.6 kg
IBW in k.2
Pertinent Past Medical History: IV JOCELIN
- Vital Signs / Lab Results
Temp Pulse Resp BP Pulse Ox
98.1 F 103 18 149/92 99
12/17/24 03:20 12/17/24 03:20 12/17/24 03:20 12/17/24 03:20 12/17/24 03:20
Lab Results - Hematology
12/15/24 12/16/24
04:06 03:40
WBC 7.9 7.0
Lab Results - Chemistry
12/15/24 12/16/24
04:06 03:40
BUN 19 17
Creatinine 1.1 1.1
Estimated Creat Clear 107 107
Microbiology Results
12/15/24 04:33 Blood Culture - Preliminary
Blood/Venous No Growth in 48 hours- Final report to follow
12/13/24 04:07 Blood Culture - Preliminary
Blood/Venous No Growth in 4 days- Final report to follow
12/16/24 03:40 Blood Culture - Preliminary
Blood/Venous No Growth in 24 hours- Final report to follow
12/14/24 16:37 Blood Culture - Preliminary
Blood/Venous No Growth in 48 hours- Final report to follow
12/14/24 12:53 Catheter Tip Culture - Preliminary
Picc No Growth After 48 Hours
12/12/24 03:10 Blood Culture - Preliminary
Blood/Venous Staph aureus MRSA
Gram Stain - Preliminary
12/11/24 03:33 Blood Culture - Final
Blood/Venous No Growth - Final Report
Therapeutic Drug Monitoring
Vancomycin Peak 21.9 ug/ml (18-) 12/14/24 14:55
Random Vancomycin 13.2 ug/ml 12/17/24 07:12
[2024-12-17 07:58] LABS: Blood Urea Nitrogen 13 mg/dl (9-20); Calcium 7.8 mg/dl (8.4-10.2); Carbon Dioxide 23 mmol/L (22-30); Chloride 108 mmol/L (98-107); Estimated Creatinine Clearance > 125 ml/min; Glucose 111 mg/dl (70-99); Magnesium 1.6 mg/dl (1.6-2.3); Potassium 3.7 mmol/L (3.5-5.1); Sodium 137 mmol/L (135-145); eGFR > 60.00
[2024-12-17 08:00] VITALS: BP 141/91
[2024-12-17 08:02] LABS: Hematocrit 22.6 % (39.0-52.0); Hemoglobin 7.9 g/dL (13.0-18.0); Mean Corp Hgb Conc. 35.0 g/dL (33.0-37.0); Mean Corpuscular Volume 85.9 fL (80.0-94.0); Platelet Count 828 10^3/uL (130-400); Red Cell Dist. Width 14.3 % (11.5-14.5)
[2024-12-17] MEDS: SUBUTEX 8 MG SL (08:19)
[2024-12-17] MEDS: LASIX 40 MG PO (08:20)
[2024-12-17] MEDS: CATAPRES 0.3 MG PO ×4 (08:20→20:59)
[2024-12-17] MEDS: COREG 6.25 MG PO (08:20)
[2024-12-17] MEDS: THERAGRAN 1 TABLET PO (08:21)
[2024-12-17] MEDS: LOW STRENGTH ASPIRIN 81 MG PO (08:21)
[2024-12-17] MEDS: VITAMIN B1 100 MG PO (08:21)
[2024-12-17] MEDS: VANCOCIN 530 MG IV (09:33)
--- NOTE | 2024-12-17 11:11 | W.PN.CARDCBS ---
Today's Communication / Plan
-
Continue IV antibiotics for MRSA endocarditis
Increase activity and into chair today.
Will try to get Panorex done prior to transfer to rehab.
Increase Coreg to 12.5 mg p.o. twice daily.
Continue Lasix 40 mg daily
Long-term plan would be for him to go to rehab and I would then reassess him in the office in 2 to 3 weeks to see where he is.
Impression / Plan
-
Primary Catia Designer: none prior to admission
Impression:
Presentation with change in mental status 12/03/24
Sepsis
Septic emboli by brain MRI
MSSA bacteremia
Pancreatitis
TME
VDRF
LE
Rhabdomyolysis
Elevated LFTs
Thrombocytopenia
IVDA since age 19
Vaping
Hypokalemia
ECHO 12/04/24: EF 55 to 60%, no regional wall motion abnormalities noted, no evidence of vegetation seen
KELI 12/07/24: EF 65%, large endocarditis/vegetations attached to mitral annulus measuring ~1x1cm each, mild MR, no Tricuspid or aortic vegetations
Echo 12/14/24: EF 60-65%, thick echodensity of mitral annulus 1.6x20cm, trace MR
Plan:
-History: Patient continues with VDRF in the setting of sepsis, septic shock, TME, brain lesions concerning for embolic disease and rhabdo.
-KELI with evidence of large endocarditis/vegetations attached to the mitral annulus.
Appreciate CT surgical input. Plan would be for rehab and IV abx and then reeval as outpt in the absence of emergent decompenstation.
Echo reviewed with pt. Still has a large echodensity on his mitral annulus consistent with endocarditis.
He understands the severity of his condition.
Blood cultures positive as of December 12 with MRSA. Cultures from December 13-December 16 remain negative.
Replete lytes as needed.
Cont oral diuresis, lasix 40 mg daily. Some of his edema is third spacing from low protein/nutrition state.
Remains tachycardic, Cont Coreg 12.5 mg BID increased May consider further increase next 24 hrs if HR remains >100
His lipase is improving
He has severe deconditioning. PT/OT and placement for IV abx and rehab.
I discussed with him and his family the plan going forward. Will try to get the Panorex this week so that is done. He will then go to rehab. This will likely need to be a medical rehab.
I will then see him back in the office in several weeks to reassess his clinical recovery. At that point if he is not using and continues to do well we will discuss reimaging his mitral valve and again discuss possible plans for valve surgery.
Will attempt to get him out of bed into chair today.
Progress Note - Catia Designer
Subjective
Date of Service: December 17, 2024
Still very weak. Denies chest pains or shortness of breath.
Objective
Labs:
12/17/24 07:12
12/17/24 07:12
Labs
Hgb 7.9 g/dL (13.0-18.0) L 12/17/24 07:12
Hct 22.6 % (39.0-52.0) L 12/17/24 07:12
Plt Count 828 10^3/uL (130-400) H 12/17/24 07:12
Sodium 137 mmol/L (135-145) 12/17/24 07:12
Potassium 3.7 mmol/L (3.5-5.1) 12/17/24 07:12
BUN 13 mg/dl (9-20) 12/17/24 07:12
Creatinine 0.9 mg/dL (0.7-1.3) 12/17/24 07:12
Glucose 111 mg/dl (70-99) H 12/17/24 07:12
Vital Signs and I&O:
Vital Signs
Temp Pulse Resp BP Pulse Ox
98 F 114 16 141/91 95
12/17/24 08:00 12/17/24 08:20 12/17/24 08:00 12/17/24 08:20 12/17/24 08:00
Vital Signs
Temp Pulse Resp BP Pulse Ox
98 F 114 16 141/91 95
12/17/24 08:00 12/17/24 08:20 12/17/24 08:00 12/17/24 08:20 12/17/24 08:00
Intake & Output
12/15/24 12/16/24 12/17/24 12/18/24
06:59 06:59 06:59 06:59
Intake Total 1952 / 1952 2027 / 2027
Output Total 1400 / 1400 1900 / 1900 1250 / 1250
Balance 553 / 553 128 / 128 -1250 / -1250
Physical Exam
Physical Exam
GEN: No distress, awake, Ox3
HEENT: supple, anicteric, mmm
LUNGS: CTA, no wheezes/rales
CV: Reg, S1/S2, 1/6 syst LSB, no gallop
ABD: soft, BS+, NT/ND
EXT: ++ edema
NEURO: Gross non-focal
SKIN: No rash
[2024-12-17 11:45] VITALS: BP 132/94
--- NOTE | 2024-12-17 13:08 | W.PN.HOSP.TC ---
Today's Communication/Plan
-
Increase ambulation and possible obtain Panorex done prior to transfer to rehab.
Assessment / Plan
Assessment / Plan
Impression:
Patient is a 39-year-old male with a medical history of polysubstance abuse (skin popping with fentanyl) who was admitted after presentation with altered mental status. He was brought in by his parents with tremors and confusion. His mental status
abruptly declined and he was intubated for airway protection. CT brain showed possible left occipital lobe mass. His blood cultures are positive for MRSA. He is currently being managed in the ICU for treatment of encephalopathy and bacteremia.
Patient extubated.
Constant positive blood culture, infectious disease recommending to remove PICC line.
Reevaluated again by CT surgery, patient was not able to stand for panelipse, cannot be dentally cleared.
CT recommend sending the patient to a facility where he can get work up and give dental clearance.
Discussed with family, awaiting decision.
Assessment/plan:
Septic shock secondary to MRSA/MSSA bacteremia:
- Remains on vasopressors
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
- Still persistently febrile, leukocytosis improving
- Transesophageal echocardiogram 12/06 showed large mitral annulus vegetation
- No current plans for cardiothoracic surgery due to critical illness
- ID following, continue antibiotics with vancomycin and nafcillin, repeat cultures still positive
12/13
Repeat blood cultures so far negative.
Continue to biotic.
Patient extubated
12/14
PICC line discontinued.
CT surgery to evaluate again for consideration of any intervention.
12/15
CT recommend sending the patient to a facility where he can get work up and give dental clearance.
Discussed with mother at bedside, family asking for 1 to 2 days to think about the transfer
No urgent need for transfer as of now.
12/17
Repeat blood culture so far negative, last blood culture positive was from 12/12
Cardiology recommending increase activity and possible patient can go to rehab and follow-up with cardiology in 2 weeks to reassess.
Eventually may need surgical intervention if persistent vegetation with IV antibiotics.
will try to have Panorex done prior to transfer to rehab.
Acute hypoxic respiratory failure.
Ventilation dependent respiratory failure.
12/13
Patient extubated
Acute toxic metabolic encephalopathy:
- Cautiously weaning ketamine and Versed drips and transitioning to Precedex, eyes open this morning and able to follow simple commands
- Continue EEG monitoring, no acute epileptiform activity captured
- Encephalopathy likely multifactorial due to bacteremia, opiate withdrawal, and and suspected septic emboli to brain
- MRI brain consistent with suspicion for septic emboli, repeat CT brain shows stable findings
- Continue mechanical ventilation for airway protection, vent management per rock loader
- Seroquel dose increased to 50 mg daily and 100 mg at night
- Will titrate down on opiate withdrawal medications as able
12/13
Mental status improved.
Currently extubated
Left upper extremity DVT involving brachial vein
Given his multiple scattered acute infarctions with microhemorrhages, patient is high risk for ICH if systemic anticoagulation started
PICC line removed repeat ultrasound shows left brachial vein nonocclusive DVT.
continue subcu heparin.
LE:
- Creatinine improved
Hypokalemia:
- Mild, replete
- Monitor
Rhabdomyolysis:
- Continue IV fluids
Elevated LFTs:
- Suspect due to severe sepsis
- Resolved, monitor with treatment as above
Pancreatitis:
- Elevated lipase, CT imaging with evidence of pancreatic inflammation
- Triglycerides elevated but improving, discontinued propofol for sedation, trend triglyceride levels
- Currently tolerating tube feeds
Lactic acidosis:
- Resolved, continue to monitor
Polysubstance abuse:
- Long history of injection drug abuse
- Titrate clonidine and tizanidine, Versed and ketamine drips as able
- Can initiate buprenorphine treatment when tolerating p.o.
CODE STATUS: Full code
DVT prophylaxis: SCDs
Diet: Regular diet
Family confusion: Discussed with mother and sister at bedside/discussed with mother and father at bedside
Disposition: Increase ambulation and possible obtain Panorex done prior to transfer to rehab.
Total time spent on today's encounter was 65 minutes which included time spent in counseling the patient/family regarding diagnosis and treatment plan as listed above, goals of care, and symptom management. Case was discussed with nursing staff,
specialists, and care coordinators/case management. All labs and imaging personally reviewed by me. Remainder the time spent in detailed review of previous records, lab data, imaging, and other medical provider documentation.
Anticipated Discharge: > 48 hours
Subjective/Interval History
-
Date of Service: December 17, 2024
Patient is more awake and oriented.
Denies chest pain or shortness of breath
Discussed with parents at bedside.
Objective Data
-
Labs:
Laboratory Results
12/17/24
07:12
WBC 7.7
Hgb 7.9 L
Hct 22.6 L
Plt Count 828 H
Sodium 137
Potassium 3.7
Chloride 108 H
Carbon Dioxide 23
BUN 13
Creatinine 0.9
Glucose 111 H
Calcium 7.8 L
Vital Signs:
Vital Signs
Temp Pulse Resp BP Pulse Ox
98 F 114 16 141/91 95
12/17/24 08:00 12/17/24 08:20 12/17/24 08:00 12/17/24 08:20 12/17/24 08:00
I&O
12/16/24 12/17/24 12/18/24
06:59 06:59 06:59
Intake Total 2027
Output Total 1900 / 1900 1250 / 1250
Balance 128 / 128 -1250 / -1250
Physical Exam
-
General: Appears in Distress
HEENT: Normocephalic and Atraumatic
Respiratory: Rales, Rhonchi and Crackles
Cardiac: Tachycardic
Breast: Deferred by me
GI: Soft, Nontender, Nondistended and Normal Bowel Sounds
Genito-urinary: No Costovertebral Tender
Musculoskeletal: No Clubbing, No Cyanosis and No Edema
Skin: Warm
Neuro: Awake and Alert
Psych: Calm
Data Reviewed
-
Diagnostic Radiology: Image personally visualized and interpreted and Report Reviewed by me
CT Scan: Image personally visualized and interpreted and Report Reviewed by me
Ultrasound: Image personally visualized and interpreted and Report Reviewed by me
MRI: Image personally visualized and interpreted and Report Reviewed by me
Medical Tests (Nuc Med, Echo etc): Image personally visualized and interpreted and Report Reviewed by me
Labs: Labs Reviewed by me
Old Records: Reviewed
--- NOTE | 2024-12-17 14:19 | W.PN.ID1 ---
Date of Service
Date of Service: December 17, 2024
Today's Communication
Continue antibiotics.
Assessment / Plan
# Complicated sustained Staphylococcus aureus (MRSA/MSSA) bacteremia
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
# Multiple embolic CVA
# LUE PICC associated DVT, PICC dc'd
# Fever resolving
# Leukocytosis; resolved
# s/p Intubated 12/03, extubated 12/12/24
# LE, stable
# Polysubstance abuse (cocaine and fentanyl skin/muscle popper)
# hx MRSA wound abscesses (2010)
# hx of Viridans strep bacteremia (2010)
- 12/14 reepat TTE: 1.6 x 2 cm echodensity MV
- 12/12/24 Blood cx turned positive with MRSA
- 12/14/24 PICC D/C'ed; tip cx without growth
- Repeat blood cx's daily until persistently negative.
- Will leave RUE midline for now as patient with poor venous access.
- There is discrepancy between blood cx PCR (identified as MRSA) and phenotype (identified as MSSA)
Discussed with microbiology and S. aureus experts.
Cefoxitin induced test negative. PBP2a negative.
Best to treat as both MRSA and MSSA.
-> Continue IV Vancomycin and Nafcillin 2g IV q4h (both crosses blood-brain barrier)
- Monitor renal function and LFT's while on nafcillin.
- Close monitoring of vancomycin levels to prevent nephrotoxicity.
-Anticipate 6 weeks of IV antibiotic from negative blood cx.
Case complicated by hx IVDU, home IV abx is not an option.
- If patient continues to improve, will have CT surgery reevaluate for valve surgery.
- Pt with poor dentition. Ordered panelipse.
Chief Complaint
-: Clinical Sepsis, Bacteremia and Other (embolic CVA)
Subjective / Review of Systems
Patient seen and examined. Continues to feel generally weak.
Review of Systems: No Fever and No Chills
Vital Signs / Physical Exam
Vital Signs
Vital Signs
Temp Pulse Resp BP Pulse Ox
98 F 114 16 141/91 95
12/17/24 08:00 12/17/24 08:20 12/17/24 08:00 12/17/24 08:20 12/17/24 08:00
Physical Exam
Constitutional: No Acute Distress, Comfortable, Chronically Ill and Non-toxic
Eyes: Sclera Anicteric
Oropharyngeal: Poor Dention
Cardiovascular: Regular Rate and S1/S2; Negative Murmur
Pulmonary: Clear
Gastrointestinal: Soft, Non Tender, Non Distended and Normal Bowel Sounds
Extremities: Edema (LUE ), Splinter Hemorrhage and Janeway Lesions
Neurological: AO x 3; Negative Meningeal Signs
Psychological: Calm
Lines: Other (RUE midline)
Objective Data
Lab Data
Lab Results
12/17/24 07:12
12/17/24 07:12
Estimated Creat Clear > 125 ml/min 12/17/24 07:12
Lactic Acid 1.3 mmol/L (0.7-2.0) 12/05/24 16:46
Total Bilirubin 0.9 mg/dl (0.2-1.3) 12/14/24 04:39
AST 24 U/L (17-59) 12/14/24 04:39
ALT 18 U/L (0-50) 12/14/24 04:39
Alkaline Phosphatase 55 U/L (38-126) 12/14/24 04:39
Amylase 139 U/L (30-110) H 12/05/24 04:04
Most recent labs reviewed.
Micro Results:
12/17/24 07:12 Blood Culture - Pending
Blood/Venous
12/14/24 12:53 Catheter Tip Culture - Final
Picc No Growth After 72 Hours
12/09/24 03:54 Blood Culture - Final
Blood/Venous Staph aureus MRSA
Gram Stain - Final
12/08/24 03:02 Blood Culture - Final
Blood/Venous Staph aureus MRSA
Gram Stain - Final
12/15/24 04:33 Blood Culture - Preliminary
Blood/Venous No Growth in 48 hours- Final report to follow
12/13/24 04:07 Blood Culture - Preliminary
Blood/Venous No Growth in 4 days- Final report to follow
12/16/24 03:40 Blood Culture - Preliminary
Blood/Venous No Growth in 24 hours- Final report to follow
12/14/24 16:37 Blood Culture - Preliminary
Blood/Venous No Growth in 48 hours- Final report to follow
12/12/24 03:10 Blood Culture - Preliminary
Blood/Venous Staph aureus MRSA
Gram Stain - Preliminary
12/11/24 03:33 Blood Culture - Final
Blood/Venous No Growth - Final Report
12/10/24 03:14 Blood Culture - Final
Blood/Venous No Growth - Final Report
12/07/24 04:06 Blood Culture - Final
Blood/Venous Staph aureus MRSA
Gram Stain - Final
12/03/24 08:20 Blood Culture - Final
Blood/Venous Staph aureus MRSA
Gram Stain - Final
12/03/24 09:21 Blood Culture - Final
Blood/Venous Staph aureus MRSA
Gram Stain - Final
12/05/24 16:46 Blood Culture - Final
Blood/Venous Staph aureus MRSA
Gram Stain - Final
12/05/24 13:38 Blood Culture - Final
Blood/Venous Staph aureus MRSA
Gram Stain - Final
12/03/24 08:38 Urine Culture - Final
Urine S aureus-Methicillin Sensitive
12/03/24 18:44 MRSA Screen - Final
Nose No Methicillin Resistant Staphylococcus aureus isolated.
Imaging:
12/05/24 CT a/p: Mild inflammatory change adjacent to the body and tail of the pancreas, suggestive of mild pancreatitis. No peripancreatic fluid collection appreciated. No evidence of intestinal obstruction or bowel inflammatory process. Study is
slightly limited by lack of intravenous or oral contrast. Gallbladder sludge without evidence of acute cholecystitis. No radiopaque gallstones are seen.
12/04/24 MRI brain: Numerous scattered acute infarctions in a distribution that is most suggestive of embolic phenomenon in the setting of known IV drug abuse. Multiple small microhemorrhages are also demonstrated.
12/03/24 CXR: Clear lungs.
12/03/[address]: Possible cortical petechial hemorrhages in the left frontal lobe and left occipital lobe. Possible small old infarct, periventricular small vessel ischemic disease or edema due to underlying mass in the left occipital lobe.
[2024-12-17 17:00] VITALS: BP 132/79
[2024-12-17 19:30] VITALS: BP 127/81
[2024-12-17] MEDS: COREG 12.5 MG PO (19:30)
[2024-12-17] MEDS: MELATONIN 10 MG PO (21:01)
[2024-12-17 23:30] VITALS: BP 158/88
[2024-12-18 03:49] VITALS: BP 143/94
[2024-12-18] MEDS: NAFCIL 108 MG IV ×6 (04:40→23:21)
[2024-12-18 06:00] VITALS: BMI 24.8
[2024-12-18 07:30] VITALS: BP 149/83
[2024-12-18] MEDS: TYLENOL 1000 MG PO ×3 (08:28→23:21)
[2024-12-18] MEDS: SUBUTEX 16 MG SL (08:28)
[2024-12-18] MEDS: HEPARIN 5000 UNITS SC ×3 (08:29→23:20)
[2024-12-18] MEDS: LOW STRENGTH ASPIRIN 81 MG PO (08:29)
[2024-12-18] MEDS: THERAGRAN 1 TABLET PO (08:29)
[2024-12-18] MEDS: COREG 12.5 MG PO ×2 (08:29→20:28)
[2024-12-18] MEDS: LASIX 40 MG PO (08:29)
[2024-12-18] MEDS: CATAPRES 0.3 MG PO ×4 (08:29→21:20)
[2024-12-18] MEDS: VITAMIN B1 100 MG PO (08:29)
[2024-12-18 08:50] LABS: Hematocrit 22.0 % (39.0-52.0); Hemoglobin 7.5 g/dL (13.0-18.0); Mean Corp Hgb Conc. 34.1 g/dL (33.0-37.0); Mean Corpuscular Volume 86.6 fL (80.0-94.0); Platelet Count 825 10^3/uL (130-400); Red Cell Dist. Width 14.5 % (11.5-14.5)
[2024-12-18 09:34] LABS: Blood Urea Nitrogen 10 mg/dl (9-20); Calcium 7.6 mg/dl (8.4-10.2); Carbon Dioxide 27 mmol/L (22-30); Chloride 105 mmol/L (98-107); Estimated Creatinine Clearance 118 ml/min; Glucose 98 mg/dl (70-99); Magnesium 1.5 mg/dl (1.6-2.3); Potassium 3.5 mmol/L (3.5-5.1); Sodium 136 mmol/L (135-145); eGFR > 60.00
--- NOTE | 2024-12-18 09:48 | PHA.VAN.FU ---
Vancomycin Assessment / Plan
- Assessment
Renal Function: Stable
WBC's are: WNL
In the past 24 hrs, patient has been: Afebrile
Concomitant Antimicrobials: nafcillin
- Assessment - Therapeutic Drug Monitoring
Random Level: 12.4 (drawn approx. 22.5 H after previous dose of 1500 mg)
- Dosing Plan
Dosing by Level: Re-dose today (vancomycin 1500 mg x 1)
- Monitoring Plan
Random Level: 12/19 06
- Follow Up
Pharmacy will continue to follow.
Vancomycin Follow UP
- -
Patient Age: 39
Patient Sex: Male
Vancomycin Day #: 16
Indication: Bacteremia
Requesting Provider: Dr. Fofana / Teto
Pertinent Antimicrobial Allergies:
NKDA
Height / Weight:
Height 6 ft 2 in
Actual Weight 87.543 kg
IBW in k.2
Pertinent Past Medical History: IV JOCELIN
- Vital Signs / Lab Results
Temp Pulse Resp BP Pulse Ox
98.2 F 104 16 149/83 98
12/18/24 07:30 12/18/24 07:30 12/18/24 07:30 12/18/24 07:30 12/18/24 07:30
Lab Results - Hematology
12/16/24 12/17/24 12/18/24
03:40 07:12 08:13
WBC 7.0 7.7 7.4
Lab Results - Chemistry
12/16/24 12/17/24 12/18/24
03:40 07:12 08:13
BUN 17 13 10
Creatinine 1.1 0.9 1.0
Estimated Creat Clear 107 > 125 118
Microbiology Results
12/12/24 03:10 Blood Culture - Final
Blood/Venous Staph aureus MRSA
Gram Stain - Final
12/17/24 07:12 Blood Culture - Preliminary
Blood/Venous No Growth in 24 hours- Final report to follow
12/15/24 04:33 Blood Culture - Preliminary
Blood/Venous No Growth in 72 hours- Final report to follow
12/13/24 04:07 Blood Culture - Final
Blood/Venous No Growth - Final Report
12/16/24 03:40 Blood Culture - Preliminary
Blood/Venous No Growth in 48 hours- Final report to follow
12/14/24 16:37 Blood Culture - Preliminary
Blood/Venous No Growth in 72 hours- Final report to follow
12/14/24 12:53 Catheter Tip Culture - Final
Picc No Growth After 72 Hours
12/09/24 03:54 Blood Culture - Final
Blood/Venous Staph aureus MRSA
Gram Stain - Final
12/08/24 03:02 Blood Culture - Final
Blood/Venous Staph aureus MRSA
Gram Stain - Final
Therapeutic Drug Monitoring
Vancomycin Peak 21.9 ug/ml (18-) 12/14/24 14:55
Random Vancomycin 12.4 ug/ml 12/18/24 08:13
[2024-12-18] MEDS: VANCOCIN 530 MG IV (09:53)
[2024-12-18] MEDS: LASIX 20 MG IV (10:24)
[2024-12-18 11:15] VITALS: BP 123/76
--- NOTE | 2024-12-18 11:23 | W.PN.ID1 ---
Date of Service
Date of Service: December 18, 2024
Today's Communication
Recommend 6 weeks of IV antibiotics from negative blood cx, through 01/23/2025
Assessment / Plan
# Complicated sustained Staphylococcus aureus (MRSA/MSSA) bacteremia
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
# Multiple embolic CVA
# LUE PICC associated DVT, PICC dc'd 12/14
# Fever resolving
# Leukocytosis; resolved
# s/p Intubated 12/03, extubated 12/12/24
# LE, stable
# Polysubstance abuse (cocaine and fentanyl skin/muscle popper)
# hx MRSA wound abscesses (2010)
# hx of Viridans strep bacteremia (2010)
- 12/14 repeat TTE: 1.6 x 2 cm echodensity MV
- 12/12/24 Last positive Blood cx MRSA
- 12/13/24 forward, negtive blood cx's.
- 12/14/24 PICC D/C'ed; tip cx without growth
- Per CTS, no emergent need for valve surgery at this time.
- There is discrepancy between blood cx PCR (identified as MRSA) and phenotype (identified as MSSA)
Discussed with microbiology and S. aureus experts.
Cefoxitin induced test negative. PBP2a negative.
Best to treat as both MRSA and MSSA.
-> Continue IV Vancomycin and Nafcillin 2g IV q4h (both crosses blood-brain barrier)
- Monitor renal function and LFT's while on nafcillin.
- Close monitoring of vancomycin levels to prevent nephrotoxicity.
- Recommend 6 weeks of IV antibiotics from negative blood cx, through 01/23/2025
- Case complicated by hx IVDU, home IV abx is not an option.
Chief Complaint
-: Bacteremia and Other (embolic CVA)
Subjective / Review of Systems
Feels deconditioned.
Vital Signs / Physical Exam
Vital Signs
Vital Signs
Temp Pulse Resp BP Pulse Ox
98.2 F 104 16 149/83 98
12/18/24 07:30 12/18/24 07:30 12/18/24 07:30 12/18/24 07:30 12/18/24 07:30
Physical Exam
Constitutional: Chronically Ill
Eyes: No Conjunctival Hemorrhage and Sclera Anicteric
Oropharyngeal: Poor Dention
Cardiovascular: Regular Rate and S1/S2
Pulmonary: Clear
Gastrointestinal: Soft, Non Tender, Non Distended and Normal Bowel Sounds
Genito-Urinary: Negative CVA Tenderness
Extremities: Splinter Hemorrhage and Janeway Lesions
Neurological: AO x 3
Lines: Other (RUE midline)
Objective Data
Lab Data
Lab Results
12/18/24 08:13
12/18/24 08:13
Estimated Creat Clear 118 ml/min 12/18/24 08:13
Lactic Acid 1.3 mmol/L (0.7-2.0) 12/05/24 16:46
Total Bilirubin 0.9 mg/dl (0.2-1.3) 12/14/24 04:39
AST 24 U/L (17-59) 12/14/24 04:39
ALT 18 U/L (0-50) 12/14/24 04:39
Alkaline Phosphatase 55 U/L (38-126) 12/14/24 04:39
Amylase 139 U/L (30-110) H 12/05/24 04:04
Most recent labs reviewed.
Micro Results:
12/12/24 03:10 Blood Culture - Final
Blood/Venous Staph aureus MRSA
Gram Stain - Final
12/17/24 07:12 Blood Culture - Preliminary
Blood/Venous No Growth in 24 hours- Final report to follow
12/15/24 04:33 Blood Culture - Preliminary
Blood/Venous No Growth in 72 hours- Final report to follow
12/13/24 04:07 Blood Culture - Final
Blood/Venous No Growth - Final Report
12/16/24 03:40 Blood Culture - Preliminary
Blood/Venous No Growth in 48 hours- Final report to follow
12/14/24 16:37 Blood Culture - Preliminary
Blood/Venous No Growth in 72 hours- Final report to follow
12/14/24 12:53 Catheter Tip Culture - Final
Picc No Growth After 72 Hours
12/09/24 03:54 Blood Culture - Final
Blood/Venous Staph aureus MRSA
Gram Stain - Final
12/08/24 03:02 Blood Culture - Final
Blood/Venous Staph aureus MRSA
Gram Stain - Final
12/11/24 03:33 Blood Culture - Final
Blood/Venous No Growth - Final Report
12/10/24 03:14 Blood Culture - Final
Blood/Venous No Growth - Final Report
12/07/24 04:06 Blood Culture - Final
Blood/Venous Staph aureus MRSA
Gram Stain - Final
12/03/24 08:20 Blood Culture - Final
Blood/Venous Staph aureus MRSA
Gram Stain - Final
12/03/24 09:21 Blood Culture - Final
Blood/Venous Staph aureus MRSA
Gram Stain - Final
12/05/24 16:46 Blood Culture - Final
Blood/Venous Staph aureus MRSA
Gram Stain - Final
12/05/24 13:38 Blood Culture - Final
Blood/Venous Staph aureus MRSA
Gram Stain - Final
12/03/24 08:38 Urine Culture - Final
Urine S aureus-Methicillin Sensitive
12/03/24 18:44 MRSA Screen - Final
Nose No Methicillin Resistant Staphylococcus aureus isolated.
Imaging:
12/05/24 CT a/p: Mild inflammatory change adjacent to the body and tail of the pancreas, suggestive of mild pancreatitis. No peripancreatic fluid collection appreciated. No evidence of intestinal obstruction or bowel inflammatory process. Study is
slightly limited by lack of intravenous or oral contrast. Gallbladder sludge without evidence of acute cholecystitis. No radiopaque gallstones are seen.
12/04/24 MRI brain: Numerous scattered acute infarctions in a distribution that is most suggestive of embolic phenomenon in the setting of known IV drug abuse. Multiple small microhemorrhages are also demonstrated.
12/03/24 CXR: Clear lungs.
12/03/[address]: Possible cortical petechial hemorrhages in the left frontal lobe and left occipital lobe. Possible small old infarct, periventricular small vessel ischemic disease or edema due to underlying mass in the left occipital lobe.
--- NOTE | 2024-12-18 12:24 | W.PN.CARDCBS ---
Addendum entered and electronically signed by Chilo Ignacio DO 12/18/24 14:18:
I saw and examined the patient.
The Crossbar Switch Adjuster's note was reviewed and I agree with the note.
Comment:
Plan:
BC remain negative.
Cont IV abx as per ID
A lot of his edema is third spacing from low protein/nutritional state. Continue Lasix 40 mg daily.
Additional Lasix 20 mg IV x 1 today.
Continue to monitor his volume status closely.
Ultimately if he remains free from illicit drugs and continues with rehab with improvement, he could be reconsidered by CT surgery for valvular intervention.
Echo reviewed with patient.
Follow-up to be arranged with Dr. Rob
Discussed with nursing.
Original Note:
Today's Communication / Plan
-
Lasix 20 mg IV x1 now and cont Lasix 40 mg PO daily
Cardiology f/u being arranged and if remains sober and complies with rehab and IV antiobiotics then will revist CT surgery options
Impression / Plan
-
PCP: None prior to admission
Primary Business Development Agent: none prior to admission
Impression:
Presentation with change in mental status 12/03/24
Sepsis
Septic emboli by brain MRI
MSSA bacteremia
Pancreatitis
TME
VDRF
LE
Rhabdomyolysis
Elevated LFTs
Thrombocytopenia
IVDA since age 19
Vaping
Hypokalemia
ECHO 12/04/24: EF 55 to 60%, no regional wall motion abnormalities noted, no evidence of vegetation seen
KELI 12/07/24: EF 65%, large endocarditis/vegetations attached to mitral annulus measuring ~1x1cm each, mild MR, no Tricuspid or aortic vegetations
Echo 12/14/24: EF 60-65%, thick echodensity of mitral annulus 1.6x20cm, trace MR
Plan:
-Admitted with confusion and generalized weakness, changes in urine output and back pain. Then developed VDRF in the setting of sepsis, septic shock, TME, brain lesions concerning for embolic disease and rhabdo. KELI with evidence of large
endocarditis/vegetations attached to the mitral annulus.
-Hospitalist and ID notes reviewed by me on 12/18/2024, last positive blood culture was 12/12/2024. ID is recommending 6 weeks of IV antibiotics to run through 01/23/25. Given history of IVDA the patient is not felt to be a candidate for home IV
antibiotics and CM is working on placement. Not sure if placement is most appropriate at a traditional substance abuse center or rehab and given this complex case he will likely require placement at a center capable of administering IV antibiotics
and substance abuse rehabilitation.
-From a cardiac standpoint, patient was found to have large endocarditis vegetations attached to the mitral annulus on KELI 12/07/2024. Patient was evaluated by CT surgery and following documented compliance with antibiotics and substance abuse
treatment patient will be considered for mitral valve surgery. If there was any emergent decompensation then more urgent surgical intervention could be considered, but this would be higher risk.
-Patient diuresed with Lasix IV earlier this admission and then transition to Lasix 40 mg PO daily. Edema is likely third spacing from low protein/nutrition state. Weight is up 3 lbs on 12/18/2024, will give Lasix for 20 mg IV x 1 now.
-EF preserved at 60 to 65% by echo 12/14/2024.
-New to Coreg 12.5 mg BID this admission
-New to clonidine 0.3 mg QID this admission
-Will tentatively arrange cardiology follow-up for 3 to 4 weeks from now
Progress Note - Business Development Agent
Subjective
Date of Service: December 18, 2024
No pain
Objective
Labs:
12/18/24 08:13
12/18/24 08:13
Labs
Hgb 7.5 g/dL (13.0-18.0) L 12/18/24 08:13
Hct 22.0 % (39.0-52.0) L 12/18/24 08:13
Plt Count 825 10^3/uL (130-400) H 12/18/24 08:13
Sodium 136 mmol/L (135-145) 12/18/24 08:13
Potassium 3.5 mmol/L (3.5-5.1) 12/18/24 08:13
BUN 10 mg/dl (9-20) 12/18/24 08:13
Creatinine 1.0 mg/dL (0.7-1.3) 12/18/24 08:13
Glucose 98 mg/dl (70-99) 12/18/24 08:13
Vital Signs and I&O:
Vital Signs
Temp Pulse Resp BP Pulse Ox
98.5 F 96 20 123/76 99
12/18/24 11:15 12/18/24 11:15 12/18/24 11:15 12/18/24 11:15 12/18/24 11:15
Vital Signs
Temp Pulse Resp BP Pulse Ox
98.5 F 96 20 123/76 99
12/18/24 11:15 12/18/24 11:15 12/18/24 11:15 12/18/24 11:15 12/18/24 11:15
Intake & Output
12/16/24 12/17/24 12/18/24 12/19/24
06:59 06:59 06:59 06:59
Intake Total 2027 960 / 960
Output Total 1900 / 1900 1250 / 1250 1600 / 1600
Balance 128 / 128 -1250 / -1250 -640 / -640
Physical Exam
Physical Exam
GEN: NAD
LUNGS: RA
CV: Sinus tachycardia on tele
--- NOTE | 2024-12-18 12:59 | CM ---
CM reviewed chart, patient seen bedside. CM discussed therapy recommendations of Acute Rehab, patient agreeable to referral to [facility], placed in [facility], discussed will depend on bed availability, insurance acceptance- patient aware. CM will continue
to follow for all discharge planning needs.
Plan; referral to [facility], pending acceptance, will need auth
--- NOTE | 2024-12-18 15:15 | W.PN.HOSP.TC ---
Today's Communication/Plan
-
Assessment / Plan
Assessment / Plan
General: No Apparent Distress, Comfortable and Conversant
HEENT: NormoCephalic, Moist mucous membranes, Atraumatic
Respiratory: Clear and Non Labored Respirations
Cardiac: S1/S2 and Regular Rhythm; No Rub or Gallop
GI: Soft, Non Tender, Non Distended and Normal Bowel Sounds
Musculoskeletal: No Edema, no deformity
: NO Balderas
Neuro: Awake, Alert, Nonfocal/grossly intact
Psych: Calm and Intact Judgment/Insight
Impression:
Patient is a 39-year-old male with a medical history of polysubstance abuse (skin popping with fentanyl) who was admitted after presentation with altered mental status. He was brought in by his parents with tremors and confusion. His mental status
abruptly declined and he was intubated for airway protection. CT brain showed possible left occipital lobe mass. His blood cultures are positive for MRSA. He is currently being managed in the ICU for treatment of encephalopathy and bacteremia.
Patient extubated.
Constant positive blood culture, infectious disease recommending to remove PICC line.
Reevaluated again by CT surgery, patient was not able to stand for panelipse, cannot be dentally cleared.
CT recommend sending the patient to a facility where he can get work up and give dental clearance.
Discussed with family, awaiting decision.
Assessment/plan:
Septic shock secondary to MRSA/MSSA bacteremia:
- Off vasopressors and downgraded to general medical floors
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
- Afebrile since 12/11, leukocytosis resolved
- Transesophageal echocardiogram 12/06 showed large mitral annulus vegetation
- No current plans for cardiothoracic surgery
- ID following, continue antibiotics with vancomycin and nafcillin, repeat cultures negative since 12/13
- Continue antibiotics with vancomycin and nafcillin for 6 weeks from sterile cultures (12/13)
- PICC line discontinued
- Will attempt to get dental x-rays for evaluation prior to transfer to rehab in case cardiothoracic surgery is warranted, can follow-up with cardiothoracic surgery regarding options
Acute hypoxic respiratory failure.
Ventilation dependent respiratory failure.
12/13
Patient extubated
Acute toxic metabolic encephalopathy:
- Cautiously weaning ketamine and Versed drips and transitioning to Precedex, eyes open this morning and able to follow simple commands
- Continue EEG monitoring, no acute epileptiform activity captured
- Encephalopathy likely multifactorial due to bacteremia, opiate withdrawal, and and suspected septic emboli to brain
- MRI brain consistent with suspicion for septic emboli, repeat CT brain shows stable findings
- Continue mechanical ventilation for airway protection, vent management per oral therapist
- Seroquel dose increased to 50 mg daily and 100 mg at night
- Will titrate down on opiate withdrawal medications as able
12/13
Mental status at or close to baseline.
Currently extubated
Left upper extremity DVT involving brachial vein
Given his multiple scattered acute infarctions with microhemorrhages, patient is high risk for ICH if systemic anticoagulation started
PICC line removed repeat ultrasound shows left brachial vein nonocclusive DVT.
continue subcu heparin.
LE:
- Resolved
Hypokalemia:
- Resolved
- Monitor
Rhabdomyolysis:
- Resolved
Elevated LFTs:
- Suspect due to severe sepsis
- Resolved, monitor with treatment as above
Pancreatitis:
- Resolved
Lactic acidosis:
- Resolved, continue to monitor
Polysubstance abuse:
- Long history of injection drug abuse
- Now doing well with initiation of buprenorphine treatment currently 16 mg sublingual daily
- Plan for rehab after hospital discharge
CODE STATUS: Full code
DVT prophylaxis: SCDs
Diet: Regular diet
Family confusion: Discussed with mother and sister at bedside
Disposition: Increase ambulation and possible obtain Panorex done prior to transfer to rehab.
Total time spent on today's encounter was 45 minutes
Anticipated Discharge: 24 - 48 hours
Subjective/Interval History
-
Date of Service: December 18, 2024
Patient was seen and examined at bedside this morning. Continues dramatic improvement with blood cultures now sterile and mentation at apparent baseline. Will need significant rehabilitation due to weakness from prolonged hospitalization.
Objective Data
-
Labs:
Laboratory Results
12/18/24
08:13
WBC 7.4
Hgb 7.5 L
Hct 22.0 L
Plt Count 825 H
Sodium 136
Potassium 3.5
Chloride 105
Carbon Dioxide 27
BUN 10
Creatinine 1.0
Glucose 98
Calcium 7.6 L
Vital Signs:
Vital Signs
Temp Pulse Resp BP Pulse Ox
98.5 F 96 20 123/76 99
12/18/24 11:15 12/18/24 11:15 12/18/24 11:15 12/18/24 11:15 12/18/24 11:15
I&O
12/17/24 12/18/24 12/19/24
06:59 06:59 06:59
Intake Total 960 / 960
Output Total 1250 / 1250 1600 / 1600
Balance -1250 / -1250 -640 / -640
Review of Systems
-
History Source: Patient
All other systems: Reviewed and negative
Constitutional: Reports Weakness
Physical Exam
-
General: No Apparent Distress
[2024-12-18 15:35] VITALS: BP 126/83
[2024-12-18] MEDS: SUBUTEX 2 MG SL (20:31)
[2024-12-18] MEDS: MELATONIN 10 MG PO (21:20)
[2024-12-18 23:26] VITALS: BP 97/57
[2024-12-19] VITALS (9 sets, daily range): BP systolic 120–158; BP diastolic 75–96
[2024-12-19] MEDS: NAFCIL 108 MG IV ×6 (03:56→23:18)
[2024-12-19 05:34] LABS: Hematocrit 20.4 % (39.0-52.0); Hemoglobin 7.2 g/dL (13.0-18.0); Mean Corp Hgb Conc. 35.3 g/dL (33.0-37.0); Mean Corpuscular Volume 85.7 fL (80.0-94.0); Platelet Count 703 10^3/uL (130-400); Red Cell Dist. Width 15.3 % (11.5-14.5)
--- NOTE | 2024-12-19 05:39 | PTCARENOTE ---
Pt AM labs with critical hematocrit of 20.4, [employer] notified.
[2024-12-19 05:50] LABS: Blood Urea Nitrogen 9 mg/dl (9-20); Calcium 7.4 mg/dl (8.4-10.2); Carbon Dioxide 27 mmol/L (22-30); Chloride 105 mmol/L (98-107); Estimated Creatinine Clearance 118 ml/min; Glucose 105 mg/dl (70-99); Magnesium 1.3 mg/dl (1.6-2.3); Potassium 3.1 mmol/L (3.5-5.1); Sodium 135 mmol/L (135-145); eGFR > 60.00
--- NOTE | 2024-12-19 06:34 | W.PN.UPDATE ---
Update Note
Progress Note Update
Critical value w/am labs: Hct 20.4 Critical lab, Hgb 7.2, not critical lab. Ordered type and screen. Reviewed labs w/patient and possible need for blood transfusion, explained risks and benefits, patient verbalized understanding. Consent obtained
from patient, signed consent is in chart. Will defer decision to transfuse blood products to attending provider.
[2024-12-19] MEDS: SUBUTEX 16 MG SL (07:57)
[2024-12-19] MEDS: COREG 12.5 MG PO (07:58)
[2024-12-19] MEDS: TYLENOL 1000 MG PO ×3 (07:58→23:18)
[2024-12-19] MEDS: THERAGRAN 1 TABLET PO (07:58)
[2024-12-19] MEDS: LASIX 40 MG PO (07:58)
[2024-12-19] MEDS: VITAMIN B1 100 MG PO (07:58)
[2024-12-19] MEDS: CATAPRES 0.3 MG PO ×4 (07:58→22:22)
[2024-12-19] MEDS: HEPARIN 5000 UNITS SC ×3 (07:59→23:17)
[2024-12-19] MEDS: LOW STRENGTH ASPIRIN 81 MG PO (07:59)
--- NOTE | 2024-12-19 08:45 | PHA.VAN.FU ---
Addendum entered and electronically signed by Yumiko Hirsch Abiel 12/19/24 09:53:
Consult evaluated with resident. Agree with assessment and plan below.
Original Note:
Vancomycin Assessment / Plan
- Assessment
Renal Function: Stable
WBC's are: WNL
In the past 24 hrs, patient has been: Afebrile
Concomitant Antimicrobials: nafcillin
- Assessment - Therapeutic Drug Monitoring
Random Level: 14.0 - drawn ~19H after dose of 1500 mg
- Dosing Plan
Dosing by Level: Re-dose today (vancomycin 1500mg x1 dose)
- Monitoring Plan
Random Level: 12/20 06
- Follow Up
Pharmacy will continue to follow.
Vancomycin Follow UP
- -
Patient Age: 39
Patient Sex: Male
Vancomycin Day #: 17
Indication: Bacteremia
Requesting Provider: Dr. Fofana / Teto
Pertinent Antimicrobial Allergies:
NKDA
Height / Weight:
Height 6 ft 2 in
Actual Weight 87.543 kg
IBW in k.2
Pertinent Past Medical History: IV JOCELIN
- Vital Signs / Lab Results
Temp Pulse Resp BP Pulse Ox
99.1 F 110 18 152/93 98
12/19/24 07:55 12/19/24 07:55 12/19/24 07:55 12/19/24 07:55 12/19/24 07:55
Lab Results - Hematology
12/17/24 12/18/24 12/19/24
07:12 08:13 05:06
WBC 7.7 7.4 6.7
Lab Results - Chemistry
12/17/24 12/18/24 12/19/24
07:12 08:13 05:06
BUN 13 10 9
Creatinine 0.9 1.0 1.0
Estimated Creat Clear > 125 118 118
Microbiology Results
12/17/24 07:12 Blood Culture - Preliminary
Blood/Venous No Growth in 48 hours- Final report to follow
12/15/24 04:33 Blood Culture - Preliminary
Blood/Venous No Growth in 4 days- Final report to follow
12/16/24 03:40 Blood Culture - Preliminary
Blood/Venous No Growth in 72 hours- Final report to follow
12/14/24 16:37 Blood Culture - Preliminary
Blood/Venous No Growth in 4 days- Final report to follow
12/12/24 03:10 Blood Culture - Final
Blood/Venous Staph aureus MRSA
Gram Stain - Final
12/13/24 04:07 Blood Culture - Final
Blood/Venous No Growth - Final Report
12/14/24 12:53 Catheter Tip Culture - Final
Picc No Growth After 72 Hours
12/09/24 03:54 Blood Culture - Final
Blood/Venous Staph aureus MRSA
Gram Stain - Final
12/08/24 03:02 Blood Culture - Final
Blood/Venous Staph aureus MRSA
Gram Stain - Final
Therapeutic Drug Monitoring
Vancomycin Peak 21.9 ug/ml (-) 12/14/24 14:55
Random Vancomycin 14.0 ug/ml 12/19/24 05:06
--- NOTE | 2024-12-19 08:48 | W.PN.CARDCBS ---
Addendum entered and electronically signed by Dimitrios Glaser MD 12/19/24 16:46:
Correction, change carvedilol to 25 mg twice daily
Addendum entered and electronically signed by Dimitrios Glaser MD 12/19/24 16:44:
39-year-old man with long history of substance abuse, now with Staph aureus infective endocarditis, large vegetation, multiple cerebral emboli, recent vent dependent respiratory failure with multisystem organ failure, and HFpEF. Received 1 unit of
packed cells today, being evaluated for acute care rehab, reportedly refused by [facility].
Current meds: Nafcillin, vancomycin, subcu heparin, aspirin 81 mg a day, Subutex, midodrine, 0.3 mg 4 times daily, thiamine, acetaminophen, furosemide 40 mg a day, carvedilol 12.5 twice daily
120/77, pulse 107, respiratory rate 18, afebrile, weight is 87.5 kg which is up, if accurate intake and output is -1.2 L, currently receiving blood. Chronically ill, sister and mother at bedside. Offers no complaints, anasarca, lungs clear,
tachycardic without obvious murmurs, neck veins okay
white count 6.7, hemoglobin 7.2, platelets 703, potassium 3.1, magnesium 1.3, calcium 7.4, creatinine 1, BUN 9
Echo November 23, 2023, 2024: Trace mitral regurgitation, EF 60-65%, normal aortic valve, trace TR
Impression:
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
Multisystem organ failure
Multiple septic cerebral emboli
Vent dependent respiratory failure early in course
Encephalopathy
Pancreatitis
LE
Anemia
Polysubstance abuse with history of IVDA/popping
HFpEF
Plan:
He is metastable at this time with a resting sinus tachycardia, and with volume overload. He is on furosemide 40 mg by mouth daily with hypomagnesemia and hypokalemia. He is receiving blood for hemoglobin of 7.2. He has what are likely peripheral
stigmata of endocarditis and has had multiple cerebral embolic events.
Will switch to IV furosemide and supplement magnesium and potassium. Check proBNP.
Discharge planning is in process.
Antibiotics perPrimary team and IV, currently on nafcillin and vancomycin, apparently unclear whether patient has MSSA or MRSA
He remains tachycardic despite carvedilol 12.5 mg twice daily. Will uptitrate carvedilol to 37.5 mg twice daily.
Original Note:
Today's Communication / Plan
-
1 unit PRBCs today
Needs acute care rehab
Impression / Plan
-
PCP: None prior to admission
Primary Utility Operator: none prior to admission
Impression:
Presentation with change in mental status 12/03/24
Sepsis
Septic emboli by brain MRI
MSSA bacteremia
Pancreatitis
TME
VDRF
LE
Rhabdomyolysis
Elevated LFTs
Thrombocytopenia
Anemia
IVDA since age 19
Vaping
Hypokalemia
Acute HFpEF
ECHO 12/04/24: EF 55 to 60%, no regional wall motion abnormalities noted, no evidence of vegetation seen
KELI 12/07/24: EF 65%, large endocarditis/vegetations attached to mitral annulus measuring ~1x1cm each, mild MR, no Tricuspid or aortic vegetations
Echo 12/14/24: EF 60-65%, thick echodensity of mitral annulus 1.6x20cm, trace MR
Plan:
-Admitted with confusion and generalized weakness, changes in urine output and back pain. Then developed VDRF in the setting of sepsis, septic shock, TME, brain lesions concerning for embolic disease and rhabdo. KELI with evidence of large
endocarditis/vegetations attached to the mitral annulus.
-Hgb drifting down to 7.2 on 12/19/2024 labs reviewed by me. It looks like patient is ordered 1 unit PRBCs for 12/19/2024.
-Patient being evaluated for possible [facility] rehab where they will be able to complete his IV antibiotics and work on PT/OT. If patient is not accepted by [facility] he will be evaluated for other acute rehabs.
-Another important part at time of discharge is ongoing abstinence from drugs and alcohol.
-ID is recommending 6 weeks of IV antibiotics to run through 01/23/25.
-From a cardiac standpoint, patient was found to have large endocarditis vegetations attached to the mitral annulus on KELI 12/07/2024. Patient was evaluated by CT surgery and following documented compliance with antibiotics and substance abuse
treatment patient will be considered for mitral valve surgery. If there was any emergent decompensation then more urgent surgical intervention could be considered, but this would be higher risk.
-Patient diuresed with Lasix IV earlier this admission and then transition to Lasix 40 mg PO daily. Additional dose of Lasix 20 mg IV x 1 was given on 12/18/2024 for 3 lb weight gain, weight was not rechecked on 12/19/2024, but patient is -1.5 L on
my review of I&O's.
-Continue Lasix 40 mg PO daily upon discharge
-EF preserved at 60 to 65% by echo 12/14/2024.
-New to Coreg 12.5 mg BID this admission
-New to clonidine 0.3 mg QID this admission
-Cardiology follow-up arranged
Progress Note - Utility Operator
Subjective
Date of Service: December 19, 2024
Denies feeling lightheaded
Objective
Labs:
12/19/24 05:06
12/19/24 05:06
Labs
Hgb 7.2 g/dL (13.0-18.0) L 12/19/24 05:06
Hct 20.4 % (39.0-52.0) L* 12/19/24 05:06
Plt Count 703 10^3/uL (130-400) H 12/19/24 05:06
Sodium 135 mmol/L (135-145) 12/19/24 05:06
Potassium 3.1 mmol/L (3.5-5.1) L 12/19/24 05:06
BUN 9 mg/dl (9-20) 12/19/24 05:06
Creatinine 1.0 mg/dL (0.7-1.3) 12/19/24 05:06
Glucose 105 mg/dl (70-99) H 12/19/24 05:06
Vital Signs and I&O:
Vital Signs
Temp Pulse Resp BP Pulse Ox
99.1 F 110 18 152/93 98
12/19/24 07:55 12/19/24 07:55 12/19/24 07:55 12/19/24 07:55 12/19/24 07:55
Vital Signs
Temp Pulse Resp BP Pulse Ox
99.1 F 110 18 152/93 98
12/19/24 07:55 12/19/24 07:55 12/19/24 07:55 12/19/24 07:55 12/19/24 07:55
Intake & Output
12/17/24 12/18/24 12/19/24 12/20/24
06:59 06:59 06:59 06:59
Intake Total 960 / 960 2404 / 2404
Output Total 1250 / 1250 1600 / 1600 3900 / 3900
Balance -1250 / -1250 -640 / -640 -1496 / -1496
Physical Exam
Physical Exam
GEN: NAD
LUNGS: RA
CV: Sinus tachycardia on tele
[2024-12-19] MEDS: MAGNESIUM SULFATE 100 IV (09:20)
[2024-12-19] MEDS: KCL 40 MEQ PO ×2 (09:23→17:26)
[2024-12-19] MEDS: VANCOCIN 530 MG IV (10:37)
--- NOTE | 2024-12-19 13:05 | CM ---
Addendum entered by Clarissa Gómez 12/19/24 15:51:
CM spoke with jeet Hamiltonison from [facility] ([phone])- reports there are no substance use facilities that would be able to accept patient due to medical needs- will need acute/snf prior to inpatient substance rehab. [facility] has provided patient/family
with resources and is familiar with patient.
Original Note:
CM reviewed chart, reviewed with Kehinde mccurdy, unable to accept patient at this time, additional referrals placed via [facility] CM will continue to follow for all discharge planning
needs.
Plan; additional referrals placed for Acute Rehab, will require insurance auth if accepted
--- NOTE | 2024-12-19 13:42 | W.PN.ID1 ---
Date of Service
Date of Service: December 19, 2024
Today's Communication
Can place double-lumen PICC.
Assessment / Plan
# Complicated sustained Staphylococcus aureus (MRSA/MSSA) bacteremia
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
# Multiple embolic CVA
# LUE PICC associated DVT, PICC dc'd 12/14
# Fever and leukocytosis resolved
# s/p Intubated 12/03, extubated 12/12/24
# Polysubstance abuse (cocaine and fentanyl skin/muscle popper)
# hx MRSA wound abscesses (2010)
# hx of Viridans strep bacteremia (2010)
- 12/14 repeat TTE: 1.6 x 2 cm echodensity MV
- 12/12/24 Last positive Blood cx MRSA
- 12/13/24 forward, negtive blood cx's.
- 12/14/24 PICC D/C'ed; tip cx without growth
- Per CTS, no emergent need for valve surgery at this time.
- There is discrepancy between blood cx PCR (identified as MRSA) and phenotype (identified as MSSA)
Discussed with microbiology and S. aureus experts.
Cefoxitin induced test negative. PBP2a negative.
Best to treat as both MRSA and MSSA.
-> Continue IV Vancomycin and Nafcillin 2g IV q4h (both crosses blood-brain barrier)
- Monitor renal function and LFT's while on nafcillin.
- Close monitoring of vancomycin levels to prevent nephrotoxicity.
- Recommend 6 weeks of IV antibiotics from negative blood cx, through 01/23/2025
- Place double lumen PICC.
- Case complicated by hx IVDU, home IV abx is not an option.
Chief Complaint
-: Bacteremia and Other (embolic CVA)
Subjective / Review of Systems
No new complaints.
Vital Signs / Physical Exam
Vital Signs
Vital Signs
Temp Pulse Resp BP Pulse Ox
97.9 F 100 18 128/84 98
12/19/24 13:30 12/19/24 13:30 12/19/24 13:30 12/19/24 13:30 12/19/24 07:55
Physical Exam
Constitutional: No Acute Distress
Cardiovascular: Regular Rate and S1/S2
Pulmonary: Clear
Gastrointestinal: Soft, Non Tender, Non Distended and Normal Bowel Sounds
Extremities: Edema, Splinter Hemorrhage and [place]ay Lesions
Neurological: AO x 3
Psychological: Calm
Lines: Other (RUE midline)
Objective Data
Lab Data
Lab Results
12/19/24 05:06
12/19/24 05:06
Estimated Creat Clear 118 ml/min 12/19/24 05:06
Lactic Acid 1.3 mmol/L (0.7-2.0) 12/05/24 16:46
Total Bilirubin 0.9 mg/dl (0.2-1.3) 12/14/24 04:39
AST 24 U/L (17-59) 12/14/24 04:39
ALT 18 U/L (0-50) 12/14/24 04:39
Alkaline Phosphatase 55 U/L (38-126) 12/14/24 04:39
Amylase 139 U/L (30-110) H 12/05/24 04:04
Most recent labs reviewed.
Micro Results:
12/17/24 07:12 Blood Culture - Preliminary
Blood/Venous No Growth in 48 hours- Final report to follow
12/15/24 04:33 Blood Culture - Preliminary
Blood/Venous No Growth in 4 days- Final report to follow
12/16/24 03:40 Blood Culture - Preliminary
Blood/Venous No Growth in 72 hours- Final report to follow
12/14/24 16:37 Blood Culture - Preliminary
Blood/Venous No Growth in 4 days- Final report to follow
12/12/24 03:10 Blood Culture - Final
Blood/Venous Staph aureus MRSA
Gram Stain - Final
12/13/24 04:07 Blood Culture - Final
Blood/Venous No Growth - Final Report
12/14/24 12:53 Catheter Tip Culture - Final
Picc No Growth After 72 Hours
12/09/24 03:54 Blood Culture - Final
Blood/Venous Staph aureus MRSA
Gram Stain - Final
12/08/24 03:02 Blood Culture - Final
Blood/Venous Staph aureus MRSA
Gram Stain - Final
12/11/24 03:33 Blood Culture - Final
Blood/Venous No Growth - Final Report
12/10/24 03:14 Blood Culture - Final
Blood/Venous No Growth - Final Report
12/07/24 04:06 Blood Culture - Final
Blood/Venous Staph aureus MRSA
Gram Stain - Final
12/03/24 08:20 Blood Culture - Final
Blood/Venous Staph aureus MRSA
Gram Stain - Final
12/03/24 09:21 Blood Culture - Final
Blood/Venous Staph aureus MRSA
Gram Stain - Final
12/05/24 16:46 Blood Culture - Final
Blood/Venous Staph aureus MRSA
Gram Stain - Final
12/05/24 13:38 Blood Culture - Final
Blood/Venous Staph aureus MRSA
Gram Stain - Final
12/03/24 08:38 Urine Culture - Final
Urine S aureus-Methicillin Sensitive
12/03/24 18:44 MRSA Screen - Final
Nose No Methicillin Resistant Staphylococcus aureus isolated.
Imaging:
12/05/24 CT a/p: Mild inflammatory change adjacent to the body and tail of the pancreas, suggestive of mild pancreatitis. No peripancreatic fluid collection appreciated. No evidence of intestinal obstruction or bowel inflammatory process. Study is
slightly limited by lack of intravenous or oral contrast. Gallbladder sludge without evidence of acute cholecystitis. No radiopaque gallstones are seen.
12/04/24 MRI brain: Numerous scattered acute infarctions in a distribution that is most suggestive of embolic phenomenon in the setting of known IV drug abuse. Multiple small microhemorrhages are also demonstrated.
12/03/24 CXR: Clear lungs.
12/03/[address]: Possible cortical petechial hemorrhages in the left frontal lobe and left occipital lobe. Possible small old infarct, periventricular small vessel ischemic disease or edema due to underlying mass in the left occipital lobe.
--- NOTE | 2024-12-19 16:25 | W.PN.HOSP.TC ---
Today's Communication/Plan
-
Assessment / Plan
Assessment / Plan
General: No Apparent Distress, Comfortable and Conversant
HEENT: NormoCephalic, Moist mucous membranes, Atraumatic
Respiratory: Clear and Non Labored Respirations
Cardiac: S1/S2 and Regular Rhythm; No Rub or Gallop
GI: Soft, Non Tender, Non Distended and Normal Bowel Sounds
Musculoskeletal: No Edema, no deformity
: NO Balderas
Neuro: Awake, Alert, Nonfocal/grossly intact
Psych: Calm and Intact Judgment/Insight
Impression:
Patient is a 39-year-old male with a medical history of polysubstance abuse (skin popping with fentanyl) who was admitted after presentation with altered mental status. He was brought in by his parents with tremors and confusion. His mental status
abruptly declined and he was intubated for airway protection. CT brain showed possible left occipital lobe mass. His blood cultures are positive for MRSA. He was initially being managed in the ICU for treatment of encephalopathy and bacteremia.
Patient extubated. Now downgraded to general medical floors.
Assessment/plan:
Septic shock secondary to MRSA/MSSA bacteremia:
- Off vasopressors and downgraded to general medical floors
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
- Afebrile since 12/11, leukocytosis resolved
- Transesophageal echocardiogram 12/06 showed large mitral annulus vegetation
- No current plans for cardiothoracic surgery
- ID following, continue antibiotics with vancomycin and nafcillin, repeat cultures negative since 12/13
- Continue antibiotics with vancomycin and nafcillin for 6 weeks from sterile cultures (12/13)
- PICC line discontinued
- Will attempt to get dental x-rays for evaluation prior to rehab in case cardiothoracic surgery is warranted, can follow-up with cardiothoracic surgery regarding options
Acute hypoxic respiratory failure.
Ventilation dependent respiratory failure.
12/13
Patient extubated
Acute toxic metabolic encephalopathy:
- Cautiously weaning ketamine and Versed drips and transitioning to Precedex, eyes open this morning and able to follow simple commands
- Continue EEG monitoring, no acute epileptiform activity captured
- Encephalopathy likely multifactorial due to bacteremia, opiate withdrawal, and and suspected septic emboli to brain
- MRI brain consistent with suspicion for septic emboli, repeat CT brain shows stable findings
- Continue mechanical ventilation for airway protection, vent management per side piece coverer
- Seroquel dose increased to 50 mg daily and 100 mg at night
- Will titrate down on opiate withdrawal medications as able
12/13
Mental status at baseline.
extubated
Left upper extremity DVT involving brachial vein
Given his multiple scattered acute infarctions with microhemorrhages, patient is high risk for ICH if systemic anticoagulation started
PICC line removed repeat ultrasound shows left brachial vein nonocclusive DVT.
continue subcu heparin.
Anemia requiring transfusion
- Slowly downtrending hemoglobin over the course of his hospitalization, was 7.2 on labs this morning
- Will transfuse 1 unit PRBCs
- No evidence of active bleeding
- Will monitor
Hypomagnesemia:
- Replete, monitor
LE:
- Resolved
Hypokalemia:
- Replete potassium and magnesium
- Monitor
Rhabdomyolysis:
- Resolved
Elevated LFTs:
- Suspect due to severe sepsis
- Resolved, monitor with treatment as above
Pancreatitis:
- Resolved
Lactic acidosis:
- Resolved, continue to monitor
Polysubstance abuse:
- Long history of injection drug abuse
- Now doing well with initiation of buprenorphine treatment currently 16 mg sublingual daily
- Plan for rehab after hospital discharge
CODE STATUS: Full code
DVT prophylaxis: SCDs
Diet: Regular diet
Family confusion: Discussed with mother and sister at bedside
Disposition: Increase ambulation and possible obtain Panorex done prior to transfer to rehab.
Total time spent on today's encounter was 45 minutes
Anticipated Discharge: > 48 hours
Subjective/Interval History
-
Date of Service: December 19, 2024
Patient was seen and examined at bedside this morning. Feeling well although continues to have generalized weakness. Transfusing 1 unit PRBCs this morning for downtrending hemoglobin, was 7.2 this morning.
Objective Data
-
Labs:
Laboratory Results
12/19/24
05:06
WBC 6.7
Hgb 7.2 L
Hct 20.4 L*
Plt Count 703 H
Sodium 135
Potassium 3.1 L
Chloride 105
Carbon Dioxide 27
BUN 9
Creatinine 1.0
Glucose 105 H
Calcium 7.4 L
Vital Signs:
Vital Signs
Temp Pulse Resp BP Pulse Ox
98.5 F 113 18 125/83 98
12/19/24 16:08 12/19/24 16:08 12/19/24 16:08 12/19/24 16:08 12/19/24 16:08
I&O
12/18/24 12/19/24 12/20/24
06:59 06:59 06:59
Intake Total 960 / 960 2404 / 2404 250 / 250
Output Total 1600 / 1600 3900 / 3900
Balance -640 / -640 -1496 / -1496 250 / 250
Review of Systems
-
History Source: Patient
All other systems: Reviewed and negative
Physical Exam
-
General: No Apparent Distress
[2024-12-19] MEDS: MAGNESIUM OXIDE 500 MG PO (17:27)
[2024-12-19] MEDS: LASIX 40 MG IV (19:25)
[2024-12-19] MEDS: COREG 25 MG PO (19:26)
[2024-12-19] MEDS: KCL 20 MEQ PO (22:17)
[2024-12-19] MEDS: MELATONIN 10 MG PO (22:18)
[2024-12-20] MEDS: NAFCIL 108 MG IV ×5 (03:43→20:52)
[2024-12-20 06:00] VITALS: BMI 24.4
[2024-12-20 07:00] VITALS: BP 149/96
[2024-12-20] MEDS: VITAMIN B1 100 MG PO (08:00)
[2024-12-20] MEDS: KCL 40 MEQ PO ×2 (08:00→11:55)
[2024-12-20] MEDS: CATAPRES 0.3 MG PO ×4 (08:01→23:21)
[2024-12-20] MEDS: MAGNESIUM OXIDE 500 MG PO (08:01)
[2024-12-20] MEDS: SUBUTEX 16 MG SL (08:03)
[2024-12-20] MEDS: THERAGRAN 1 TABLET PO (08:03)
[2024-12-20] MEDS: LOW STRENGTH ASPIRIN 81 MG PO (08:04)
[2024-12-20] MEDS: TYLENOL 1000 MG PO ×3 (08:04→23:12)
[2024-12-20] MEDS: COREG 25 MG PO ×2 (08:04→20:52)
[2024-12-20] MEDS: LASIX 40 MG IV (08:05)
[2024-12-20] MEDS: HEPARIN 5000 UNITS SC ×3 (08:06→23:12)
[2024-12-20 08:57] LABS: Hematocrit 23.5 % (39.0-52.0); Hemoglobin 8.2 g/dL (13.0-18.0); Mean Corp Hgb Conc. 34.9 g/dL (33.0-37.0); Mean Corpuscular Volume 85.8 fL (80.0-94.0); Platelet Count 688 10^3/uL (130-400); Red Cell Dist. Width 15.5 % (11.5-14.5)
[2024-12-20 09:21] LABS: Blood Urea Nitrogen 8 mg/dl (9-20); Calcium 7.4 mg/dl (8.4-10.2); Carbon Dioxide 30 mmol/L (22-30); Chloride 106 mmol/L (98-107); Estimated Creatinine Clearance > 125 ml/min; Glucose 98 mg/dl (70-99); Magnesium 1.5 mg/dl (1.6-2.3); Potassium 3.4 mmol/L (3.5-5.1); Sodium 138 mmol/L (135-145); eGFR > 60.00
--- NOTE | 2024-12-20 10:21 | PHA.VAN.FU ---
Addendum entered and electronically signed by Yumiko Hirsch Abiel 12/20/24 10:33:
Agree with resident's assessment and plan below. Will obtain two levels to re-assess patient specific PK.
Original Note:
Vancomycin Assessment / Plan
- Assessment
Renal Function: Stable
WBC's are: WNL
In the past 24 hrs, patient has been: Afebrile
Concomitant Antimicrobials: nafcillin
- Assessment - Therapeutic Drug Monitoring
Random Level: 12.5 - drawn ~22H after dose of 1500mg
- Dosing Plan
Dosing by Level: Re-dose today (give vancomycin 1500mg x1 dose)
- Monitoring Plan
Peak Level: will obtain based on administration time of today's dose
Random Level: 12/21 0600 to assess patient-specific PK
- Follow Up
Pharmacy will continue to follow.
Vancomycin Follow UP
- -
Patient Age: 39
Patient Sex: Male
Vancomycin Day #: 18
Indication: Bacteremia
Requesting Provider: Dr. Fofana / Teto
Pertinent Antimicrobial Allergies:
NKDA
Height / Weight:
Height 6 ft 2 in
Actual Weight 86.239 kg
IBW in k.2
Pertinent Past Medical History: IV JOCELIN
- Vital Signs / Lab Results
Temp Pulse Resp BP Pulse Ox
99.0 F 108 16 149/96 98
12/20/24 07:00 12/20/24 08:01 12/20/24 07:00 12/20/24 08:01 12/20/24 07:00
Lab Results - Hematology
12/18/24 12/19/24 12/20/24
08:13 05:06 08:23
WBC 7.4 6.7 8.6
Lab Results - Chemistry
12/18/24 12/19/24 12/20/24
08:13 05:06 08:23
BUN 10 9 8 L
Creatinine 1.0 1.0 0.9
Estimated Creat Clear 118 118 > 125
Microbiology Results
12/17/24 07:12 Blood Culture - Preliminary
Blood/Venous No Growth in 72 hours- Final report to follow
12/15/24 04:33 Blood Culture - Final
Blood/Venous No Growth - Final Report
12/16/24 03:40 Blood Culture - Preliminary
Blood/Venous No Growth in 4 days- Final report to follow
12/14/24 16:37 Blood Culture - Final
Blood/Venous No Growth - Final Report
12/12/24 03:10 Blood Culture - Final
Blood/Venous Staph aureus MRSA
Gram Stain - Final
Therapeutic Drug Monitoring
Vancomycin Peak 21.9 ug/ml (18-26) 12/14/24 14:55
Random Vancomycin 12.5 ug/ml 12/20/24 08:23
[2024-12-20] MEDS: VANCOCIN 530 MG IV (10:45)
--- NOTE | 2024-12-20 11:08 | CM ---
Chart reviewed and behavioral health case manager met with patient, patient's sister and patient's parents, physical therapy are recommending acute rehab and referrals sent to [facility], [facility] in
[facility], [facility] and [facility]. 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
patient completes physical therapy). [facility] also denied patient. Per Kiara at [facility] she will be out tomorrow to meet with patient and family and make a determination.
Plan; [facility] to come to the hospital tomorrow to evaluate patient, case discussed with physician.
--- NOTE | 2024-12-20 12:00 | WOUNDNOTE ---
[facility] RN note: Patient seen during pressure injury prevention rounds with blood bank coordinator Dotty. Patient's coccyx/buttocks with mild rash with blanchable red skin suspect r/t moisture and possible yeast. Calazime barrier ointment being used. Patient has L
lower posterior heel dry scabbed area patient confirmed was present prior to admission. Protective foam dressing changed on heels. Calazime ointment applied to coccyx/buttocks. Patient stood with walker during skin assessment. He has an air chair
cushion. Instructed patient pressure injury prevention measures, heel elevation while in bed and to take air chair cushion when discharged. Patient's appetite good. Discussed with QUIN Perez. Miconazole powder to be ordered.
[2024-12-20 12:01] VITALS: BP 151/89; PULSE 108; O2SAT 96
[2024-12-20 12:02] VITALS: BP 151/89; PULSE 108; O2SAT 96
[2024-12-20] MEDS: MAGNESIUM SULFATE 50 IV (12:32)
[2024-12-20 13:43] LABS: Hepatitis C Antibody Reactive (Negative)
--- NOTE | 2024-12-20 14:01 | W.PN.HOSP.TC ---
Today's Communication/Plan
-
Assessment / Plan
Assessment / Plan
General: No Apparent Distress, Comfortable and Conversant
HEENT: NormoCephalic, Moist mucous membranes, Atraumatic
Respiratory: Clear and Non Labored Respirations
Cardiac: S1/S2 and Regular Rhythm; No Rub or Gallop
GI: Soft, Non Tender, Non Distended and Normal Bowel Sounds
Musculoskeletal: No Edema, no deformity
: NO Balderas
Neuro: Awake, Alert, Nonfocal/grossly intact
Psych: Calm and Intact Judgment/Insight
Impression:
Patient is a 39-year-old male with a medical history of polysubstance abuse (skin popping with fentanyl) who was admitted after presentation with altered mental status. He was brought in by his parents with tremors and confusion. His mental status
abruptly declined and he was intubated for airway protection. CT brain showed possible left occipital lobe mass. His blood cultures are positive for MRSA. He was initially being managed in the ICU for treatment of encephalopathy and bacteremia.
Patient extubated. Now downgraded to general medical floors.
Assessment/plan:
Septic shock secondary to MRSA/MSSA bacteremia:
- Off vasopressors and downgraded to general medical floors
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
- Afebrile since 12/11, leukocytosis resolved
- Transesophageal echocardiogram 12/06 showed large mitral annulus vegetation
- No current plans for cardiothoracic surgery but will likely eventually require surgery after completing antibiotic course
- ID following, continue antibiotics with vancomycin and nafcillin, repeat cultures negative since 12/13
- Continue antibiotics with vancomycin and nafcillin through 01/23/2025 (6 weeks from sterile cultures on 12/13)
- PICC line discontinued
- Will attempt to get dental x-rays for evaluation prior to rehab in case cardiothoracic surgery is warranted, can follow-up with cardiothoracic surgery regarding options
Anemia requiring transfusion
- Slowly downtrending hemoglobin over the course of his hospitalization, was 7.2 on labs yesterday 12/19
- Transfused 1 unit PRBCs, hemoglobin recovered appropriately to 8.2
- No evidence of active bleeding
- Will monitor
Acute hypoxic respiratory failure.
Ventilation dependent respiratory failure.
12/13
Patient extubated
Acute toxic metabolic encephalopathy:
- Cautiously weaning ketamine and Versed drips and transitioning to Precedex, eyes open this morning and able to follow simple commands
- Continue EEG monitoring, no acute epileptiform activity captured
- Encephalopathy likely multifactorial due to bacteremia, opiate withdrawal, and and suspected septic emboli to brain
- MRI brain consistent with suspicion for septic emboli, repeat CT brain shows stable findings
- Continue mechanical ventilation for airway protection, vent management per switching clerk
- Seroquel dose increased to 50 mg daily and 100 mg at night
- Will titrate down on opiate withdrawal medications as able
12/13
Mental status at baseline.
extubated
Left upper extremity DVT involving brachial vein
Given his multiple scattered acute infarctions with microhemorrhages, patient is high risk for ICH if systemic anticoagulation started
PICC line removed repeat ultrasound shows left brachial vein nonocclusive DVT.
continue subcu heparin.
Hypomagnesemia:
- Replete, monitor
LE:
- Resolved
Hypokalemia:
- Replete potassium and magnesium
- Monitor
Rhabdomyolysis:
- Resolved
Elevated LFTs:
- Suspect due to severe sepsis
- Resolved, monitor with treatment as above
Pancreatitis:
- Resolved
Lactic acidosis:
- Resolved, continue to monitor
Polysubstance abuse:
- Long history of injection drug abuse
- Now doing well with initiation of buprenorphine treatment currently 16 mg sublingual daily
- Plan for rehab after hospital discharge
CODE STATUS: Full code
DVT prophylaxis: SCDs
Diet: Regular diet
Family confusion: Discussed with mother, father, and sister at bedside
Disposition: Increase ambulation and possibly obtain Panorex prior to transfer to rehab.
Total time spent on today's encounter was 40 minutes
Anticipated Discharge: > 48 hours
Subjective/Interval History
-
Date of Service: December 20, 2024
Patient seen and examined sitting in chair at bedside this morning. Feels like his strength is slowly improving, continues to work with PT to ambulate with assistance.
Objective Data
-
Labs:
Laboratory Results
12/20/24
08:23
WBC 8.6
Hgb 8.2 L
Hct 23.5 L
Plt Count 688 H
Sodium 138
Potassium 3.4 L
Chloride 106
Carbon Dioxide 30
BUN 8 L
Creatinine 0.9
Glucose 98
Calcium 7.4 L
Vital Signs:
Vital Signs
Temp Pulse Resp BP Pulse Ox
99.0 F 107 16 144/103 98
12/20/24 07:00 12/20/24 13:35 12/20/24 07:00 12/20/24 13:35 12/20/24 07:00
I&O
12/19/24 12/20/24 12/21/24
06:59 06:59 06:59
Intake Total 2404 / 2404 1054 / 1054
Output Total 3900 / 3900 1600 / 1600
Balance -1496 / -1496 -546 / -546
Review of Systems
-
History Source: Patient
All other systems: Reviewed and negative
Constitutional: Reports Weakness
Physical Exam
-
General: No Apparent Distress
[2024-12-20 15:00] VITALS: BP 207/127
--- NOTE | 2024-12-20 15:44 | PTOTSP ---
Speech Therapy Evaluation:
Pt further assess cognitive skills, pt participated in the SLUMS. Pt earned an overall score of 26/30, indicative of 'normal' cognitive skills per parameters of this assessment. Of note, a score of 26 is borderline between normal and mild. Pt
demonstrated reductions in verbal fluency, STM, and digit recall reverse order. No skilled intervention for cognition warranted at this time, however could consider comprehensive cognitive linguistic evaluation at next level of care if concerns
arise given hx of polysubstance abuse. SUPERVISING DEPUTY to continue to follow for swallowing.
--- NOTE | 2024-12-20 15:48 | W.PN.CARDCBS ---
Addendum entered and electronically signed by Franky Bridges MD 12/20/24 17:31:
I saw and examined the patient.
The Product Technician's note was reviewed and I agree with the note.
Comment:
GEN: No distress, awake, Ox3
HEENT: supple, anicteric, mmm
LUNGS: CTA, no wheezes/rales
CV: Reg, S1/S2, 1/6 syst LSB, no gallop
ABD: soft, BS+, NT/ND
EXT: No edema
NEURO: Gross non-focal
SKIN: No rash
PLan:
He is diuresing and proBNP is improved. Will continue IV Lasix for another 24 hours. Continue carvedilol 25 mg p.o. twice daily. Creat normal
I was hoping he would be able to stand for his Panorex before discharge to rehab. Needs Aggressive physical therapy.
We again discussed the importance of avoiding any IV drug use.
Long-term plan would be for me to reassess him back in the office in 2-3 weeks after he has had aggressive physical therapy
Original Note:
Today's Communication / Plan
-
[facility] coming to evaluate the patient for acute care rehab tomorrow
Impression / Plan
-
PCP: None prior to admission
Primary Chief Information Officer: none prior to admission
Impression:
Presentation with change in mental status 12/03/24
Sepsis
Septic emboli by brain MRI
MSSA bacteremia
Pancreatitis
TME
VDRF
LE
Rhabdomyolysis
Elevated LFTs
Thrombocytopenia
Anemia
IVDA since age 19
Vaping
Hypokalemia
Acute HFpEF
LUE DVT
ECHO 12/04/24: EF 55 to 60%, no regional wall motion abnormalities noted, no evidence of vegetation seen
KELI 12/07/24: EF 65%, large endocarditis/vegetations attached to mitral annulus measuring ~1x1cm each, mild MR, no Tricuspid or aortic vegetations
Echo 12/14/24: EF 60-65%, thick echodensity of mitral annulus 1.6x20cm, trace MR
Plan:
-Admitted with confusion and generalized weakness, changes in urine output and back pain. Then developed VDRF in the setting of sepsis, septic shock, TME, brain lesions concerning for embolic disease and rhabdo. KELI with evidence of large
endocarditis/vegetations attached to the mitral annulus.
-Hgb stable at 8.2 following 1 unit PRBCs on 12/19/2024 for an Hgb of 7.2. Labs reviewed by me 12/20/2024
-Patient is not on systemic anticoagulation nor OAC. He is ordered heparin 5000 units SQ every 8 hours. There was evidence of LUE DVT and patient is not being treated with OAC due to risk of hemorrhage with septic emboli on MRI of brain earlier
this admission.
-Patient was turned down from [facility] good [facility] is going to come and evaluate the patient tomorrow. Situation is complicated by the need for long-term IV antibiotics combined with the needs for PT/OT and history of IV drug abuse
-ID is recommending 6 weeks of IV antibiotics to run through 01/23/25.
-From a cardiac standpoint, patient was found to have large endocarditis vegetations attached to the mitral annulus on KELI 12/07/2024. Patient was evaluated by CT surgery and following documented compliance with antibiotics and substance abuse
treatment patient will be considered for mitral valve surgery. If there was any emergent decompensation then more urgent surgical intervention could be considered, but this would be higher risk.
Weight is stable at 190 lbs by my review of VS on 12/20/2024. Patient diuresed with Lasix IV earlier this admission and then transitioned to Lasix 40 mg PO daily. He did require one additional dose of Lasix 20 mg IV x 1 12/18/24 for weight gain.
-Continue Lasix 40 mg PO daily upon discharge
-EF preserved at 60 to 65% by echo 12/14/2024.
-New to Coreg 12.5 mg BID this admission
-New to clonidine 0.3 mg QID this admission
-Cardiology follow-up arranged
Progress Note - Chief Information Officer
Subjective
Date of Service: December 20, 2024
He was able to ambulate using rolling walker and minimal assist and did not have any chest pain or SOB with this
Objective
Labs:
12/20/24 08:23
12/20/24 08:23
Labs
Hgb 8.2 g/dL (13.0-18.0) L 12/20/24 08:23
Hct 23.5 % (39.0-52.0) L 12/20/24 08:23
Plt Count 688 10^3/uL (130-400) H 12/20/24 08:23
Sodium 138 mmol/L (135-145) 12/20/24 08:23
Potassium 3.4 mmol/L (3.5-5.1) L 12/20/24 08:23
BUN 8 mg/dl (9-20) L 12/20/24 08:23
Creatinine 0.9 mg/dL (0.7-1.3) 12/20/24 08:23
Glucose 98 mg/dl (70-99) 12/20/24 08:23
Vital Signs and I&O:
Vital Signs
Temp Pulse Resp BP Pulse Ox
99.0 F 107 16 144/103 98
12/20/24 07:00 12/20/24 13:35 12/20/24 07:00 12/20/24 13:35 12/20/24 07:00
Vital Signs
Temp Pulse Resp BP Pulse Ox
99.0 F 107 16 144/103 98
12/20/24 07:00 12/20/24 13:35 12/20/24 07:00 12/20/24 13:35 12/20/24 07:00
Intake & Output
12/18/24 12/19/24 12/20/24 12/21/24
06:59 06:59 06:59 06:59
Intake Total 960 / 960 2404 / 2404 1054 / 1054
Output Total 1600 / 1600 3900 / 3900 1600 / 1600
Balance -640 / -640 -1496 / -1496 -546 / -546
Physical Exam
Physical Exam
GEN: NAD
LUNGS: RA
CV: Sinus tachycardia on tele
--- NOTE | 2024-12-20 16:04 | W.PN.ID1 ---
Date of Service
Date of Service: December 20, 2024
Today's Communication
Continue antibiotics.
Assessment / Plan
# Complicated Staphylococcus aureus (MRSA/MSSA) bacteremia
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
# Multiple embolic CVA
# LUE PICC associated DVT, PICC dc'd 12/14
# Fever and leukocytosis resolved
# s/p Intubated 12/03, extubated 12/12/24
# Polysubstance abuse (cocaine and fentanyl 'muscle-ling')
# hx MRSA wound abscesses (2010)
# hx of Viridans strep bacteremia (2010)
- 12/14 repeat TTE: 1.6 x 2 cm echodensity MV
- 12/12/24 Last positive Blood cx MRSA
- 12/13/24 forward, negtive blood cx's.
- 12/14/24 PICC D/C'ed; tip cx without growth
- HIV screen negative.
- Hepatitic C Ab pending
- Per CTS, no emergent need for valve surgery at this time.
- There is discrepancy between blood cx PCR (identified as MRSA) and phenotype (identified as MSSA)
Cefoxitin induced test negative. PBP2a negative.
Discussed with S. aureus experts.
Best to treat as both MRSA and MSSA since there are only few publications regarding this particular strain of S. aureus.
-> Continue IV Vancomycin and Nafcillin 2g IV q4h (both crosses blood-brain barrier), 6 weeks of IV antibiotics from negative blood cx, through 01/23/2025
- Monitor renal function and LFT's while on nafcillin.
- Close monitoring of vancomycin levels to prevent nephrotoxicity.
Chief Complaint
-: Bacteremia and Other (embolic CVA)
Subjective / Review of Systems
Ambulated few steps with PT. Sitting up in chair.
Vital Signs / Physical Exam
Vital Signs
Vital Signs
Temp Pulse Resp BP Pulse Ox
99.0 F 107 16 144/103 98
12/20/24 07:00 12/20/24 13:35 12/20/24 07:00 12/20/24 13:35 12/20/24 07:00
Physical Exam
Constitutional: No Acute Distress
Eyes: No Conjunctival Hemorrhage and Sclera Anicteric
Cardiovascular: Regular Rate and S1/S2
Pulmonary: Clear
Gastrointestinal: Soft, Non Tender, Non Distended and Normal Bowel Sounds
Extremities: Edema (decreased), Splinter Hemorrhage and Janeway Lesions
Musculoskeletal: Negative Spinal Tenderness
Neurological: AO x 3
Psychological: Calm
Lines: PICC (RUE)
Objective Data
Lab Data
Lab Results
12/20/24 08:23
12/20/24 08:23
Estimated Creat Clear > 125 ml/min 12/20/24 08:23
Lactic Acid 1.3 mmol/L (0.7-2.0) 12/05/24 16:46
Total Bilirubin 0.9 mg/dl (0.2-1.3) 12/14/24 04:39
AST 24 U/L (17-59) 12/14/24 04:39
ALT 18 U/L (0-50) 12/14/24 04:39
Alkaline Phosphatase 55 U/L (38-126) 12/14/24 04:39
Amylase 139 U/L (30-110) H 12/05/24 04:04
Most recent labs reviewed.
Micro Results:
12/17/24 07:12 Blood Culture - Preliminary
Blood/Venous No Growth in 72 hours- Final report to follow
12/15/24 04:33 Blood Culture - Final
Blood/Venous No Growth - Final Report
12/16/24 03:40 Blood Culture - Preliminary
Blood/Venous No Growth in 4 days- Final report to follow
12/14/24 16:37 Blood Culture - Final
Blood/Venous No Growth - Final Report
12/12/24 03:10 Blood Culture - Final
Blood/Venous Staph aureus MRSA
Gram Stain - Final
12/13/24 04:07 Blood Culture - Final
Blood/Venous No Growth - Final Report
12/14/24 12:53 Catheter Tip Culture - Final
Picc No Growth After 72 Hours
12/09/24 03:54 Blood Culture - Final
Blood/Venous Staph aureus MRSA
Gram Stain - Final
12/08/24 03:02 Blood Culture - Final
Blood/Venous Staph aureus MRSA
Gram Stain - Final
12/11/24 03:33 Blood Culture - Final
Blood/Venous No Growth - Final Report
12/10/24 03:14 Blood Culture - Final
Blood/Venous No Growth - Final Report
12/07/24 04:06 Blood Culture - Final
Blood/Venous Staph aureus MRSA
Gram Stain - Final
12/03/24 08:20 Blood Culture - Final
Blood/Venous Staph aureus MRSA
Gram Stain - Final
12/03/24 09:21 Blood Culture - Final
Blood/Venous Staph aureus MRSA
Gram Stain - Final
12/05/24 16:46 Blood Culture - Final
Blood/Venous Staph aureus MRSA
Gram Stain - Final
12/05/24 13:38 Blood Culture - Final
Blood/Venous Staph aureus MRSA
Gram Stain - Final
12/03/24 08:38 Urine Culture - Final
Urine S aureus-Methicillin Sensitive
12/03/24 18:44 MRSA Screen - Final
Nose No Methicillin Resistant Staphylococcus aureus isolated.
Imaging:
12/05/24 CT a/p: Mild inflammatory change adjacent to the body and tail of the pancreas, suggestive of mild pancreatitis. No peripancreatic fluid collection appreciated. No evidence of intestinal obstruction or bowel inflammatory process. Study is
slightly limited by lack of intravenous or oral contrast. Gallbladder sludge without evidence of acute cholecystitis. No radiopaque gallstones are seen.
12/04/24 MRI brain: Numerous scattered acute infarctions in a distribution that is most suggestive of embolic phenomenon in the setting of known IV drug abuse. Multiple small microhemorrhages are also demonstrated.
12/03/24 CXR: Clear lungs.
12/03/[address]: Possible cortical petechial hemorrhages in the left frontal lobe and left occipital lobe. Possible small old infarct, periventricular small vessel ischemic disease or edema due to underlying mass in the left occipital lobe.
[2024-12-20] MEDS: DESENEX/MITRAZOL/ZEASORB 1 APPLIC TOPICAL (20:53)
[2024-12-20] MEDS: MELATONIN 10 MG PO (23:12)
[2024-12-20 23:18] VITALS: BP 129/82
[2024-12-21] VITALS (9 sets, daily range): BP systolic 129–157; BP diastolic 78–96; PULSE 105; O2SAT 100; BMI 25.2
[2024-12-21] MEDS: NAFCIL 108 MG IV ×6 (00:12→20:09)
[2024-12-21 04:32] LABS: Hematocrit 20.2 % (39.0-52.0); Hemoglobin 6.9 g/dL (13.0-18.0); Mean Corp Hgb Conc. 34.2 g/dL (33.0-37.0); Mean Corpuscular Volume 87.4 fL (80.0-94.0); Nucleated Red Blood Cells % 0 % (-); Platelet Count 588 10^3/uL (130-400); Red Cell Dist. Width 15.8 % (11.5-14.5)
[2024-12-21 04:59] LABS: Blood Urea Nitrogen 9 mg/dl (9-20); Calcium 7.4 mg/dl (8.4-10.2); Carbon Dioxide 28 mmol/L (22-30); Chloride 105 mmol/L (98-107); Estimated Creatinine Clearance 118 ml/min; Glucose 106 mg/dl (70-99); Magnesium 1.8 mg/dl (1.6-2.3); Potassium 3.8 mmol/L (3.5-5.1); Sodium 136 mmol/L (135-145); eGFR > 60.00
--- NOTE | 2024-12-21 04:59 | W.PN.UPDATE ---
Update Note
Progress Note Update
AM critical labs: Hgb 6.9/Hct 20.2, ordered 1 unit PRBC's to transfuse today.
--- NOTE | 2024-12-21 05:20 | PTCARENOTE ---
Critical value - Hgb 6.9 communicated to [employer] [facility]. Electronic orders received for 1 unit PRBCs.
[2024-12-21] MEDS: SUBUTEX 16 MG SL (07:50)
[2024-12-21] MEDS: VITAMIN B1 100 MG PO (07:51)
[2024-12-21] MEDS: CATAPRES 0.3 MG PO ×4 (07:52→23:18)
[2024-12-21] MEDS: MAGNESIUM OXIDE 500 MG PO (07:52)
[2024-12-21] MEDS: THERAGRAN 1 TABLET PO (07:53)
[2024-12-21] MEDS: TYLENOL 1000 MG PO ×3 (07:53→23:15)
[2024-12-21] MEDS: COREG 25 MG PO ×2 (07:54→20:16)
[2024-12-21] MEDS: LOW STRENGTH ASPIRIN 81 MG PO (07:54)
[2024-12-21] MEDS: KCL 40 MEQ PO (07:54)
[2024-12-21] MEDS: LASIX 40 MG IV (07:56)
[2024-12-21] MEDS: HEPARIN 5000 UNITS SC ×3 (07:56→23:16)
--- NOTE | 2024-12-21 08:21 | PHA.VAN.FU ---
Addendum entered and electronically signed by Yumiko Hirsch Abiel 12/21/24 09:00:
Agree with resident's assessment and plan.
Patient's half-life has improved from 17 H on 12/15. Will trial Q12H dosing.
Original Note:
Vancomycin Assessment / Plan
- Assessment
Renal Function: Stable
WBC's are: WNL
In the past 24 hrs, patient has been: Afebrile
Concomitant Antimicrobials: nafcillin
- Assessment - Therapeutic Drug Monitoring
Extrapolated Cmax (mcg/mL): 36.2
Peak level was drawn: Appropriately (drawn ~2H after END of infusion)
Extrapolated Cmin (mcg/mL): 9.1
Trough Drawn: Appropriately
Levels were drawn: At steady state
Calculated AUC (mcg*h/mL): 476
Calculated ke: 0.0612
Calculated half life (H): 11.3
Calculated Vd (L): 51.42
Calculated Vanc CL (ml/min): 3.15
- Dosing Plan
Adjust Regimen to: 750mg q12h
New Regimen Predicts: AUC (491), Peak (28.0), Trough (14.3)
- Monitoring Plan
No level(s) ordered at this time: will consider once at steady state of new regimen
- Follow Up
Pharmacy will continue to follow.
Vancomycin Follow UP
- -
Patient Age: 39
Patient Sex: Male
Vancomycin Day #: 19
Indication: Bacteremia
Requesting Provider: Dr. Fofana / Teto
Pertinent Antimicrobial Allergies:
NKDA
Height / Weight:
Height 6 ft 2 in
Actual Weight 89.131 kg
IBW in k.2
Pertinent Past Medical History: IV JOCELIN
- Vital Signs / Lab Results
Temp Pulse Resp BP Pulse Ox
98.9 F 97 16 146/94 99
12/21/24 07:00 12/21/24 07:52 12/21/24 07:00 12/21/24 07:52 12/21/24 07:00
Lab Results - Hematology
12/18/24 12/19/24 12/20/24
08:13 05:06 08:23
WBC 7.4 6.7 8.6
12/21/24
03:53
WBC 6.7
Lab Results - Chemistry
12/18/24 12/19/24 12/20/24
08:13 05:06 08:23
BUN 10 9 8 L
Creatinine 1.0 1.0 0.9
Estimated Creat Clear 118 118 > 125
12/21/24
03:53
BUN 9
Creatinine 1.0
Estimated Creat Clear 118
Microbiology Results
12/17/24 07:12 Blood Culture - Preliminary
Blood/Venous No Growth in 4 days- Final report to follow
12/16/24 03:40 Blood Culture - Final
Blood/Venous No Growth - Final Report
12/15/24 04:33 Blood Culture - Final
Blood/Venous No Growth - Final Report
12/14/24 16:37 Blood Culture - Final
Blood/Venous No Growth - Final Report
Therapeutic Drug Monitoring
Vancomycin Peak 31.8 ug/ml (18-26) H 12/20/24 14:22
Random Vancomycin 13.9 ug/ml 12/21/24 03:53
[2024-12-21] MEDS: DESENEX/MITRAZOL/ZEASORB 1 APPLIC TOPICAL ×2 (09:04→20:09)
[2024-12-21] MEDS: VANCOCIN 150 IV ×2 (09:31→17:06)
--- NOTE | 2024-12-21 09:56 | W.PN.ID1 ---
Date of Service
Date of Service: December 21, 2024
Today's Communication
Continue abx's.
Check Hep C RNA.
Assessment / Plan
# Complicated Staphylococcus aureus (MRSA/MSSA) bacteremia
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
# Multiple embolic CVA
# LUE PICC associated DVT, PICC dc'd 12/14
# Fever and leukocytosis resolved
# s/p Intubated 12/03, extubated 12/12/24
# Polysubstance abuse (cocaine and fentanyl 'muscle-ling')
# hx MRSA wound abscesses (2010)
# hx of Viridans strep bacteremia (2010)
- 12/14 repeat TTE: 1.6 x 2 cm echodensity MV
- 12/12/24 Last positive Blood cx MRSA
- 12/13/24 forward, negtive blood cx's.
- 12/14/24 PICC D/C'ed; tip cx without growth
- HIV screen negative.
- Hepatitic C Ab positive: ordered hep C RNA
- Per CTS, no emergent need for valve surgery at this time.
- There is discrepancy between blood cx PCR (identified as MRSA) and phenotype (identified as MSSA)
Cefoxitin induced test negative. PBP2a negative.
Discussed with S. aureus experts.
Best to treat as both MRSA and MSSA since there are only few publications regarding this particular strain of S. aureus.
-> Continue IV Vancomycin and Nafcillin 2g IV q4h (both crosses blood-brain barrier), 6 weeks of IV antibiotics from negative blood cx, through 01/23/2025
- Monitor renal function and LFT's while on nafcillin.
- Close monitoring of vancomycin levels to prevent nephrotoxicity.
Chief Complaint
-: Bacteremia and Other (embolic CVA)
Subjective / Review of Systems
No complaints.
Vital Signs / Physical Exam
Vital Signs
Vital Signs
Temp Pulse Resp BP Pulse Ox
98.6 F 103 18 157/96 99
12/21/24 08:29 12/21/24 08:29 12/21/24 08:29 12/21/24 08:29 12/21/24 09:44
Physical Exam
Constitutional: No Acute Distress
Eyes: No Conjunctival Hemorrhage and Sclera Anicteric
Cardiovascular: Regular Rate and S1/S2
Pulmonary: Clear
Gastrointestinal: Soft, Non Tender, Non Distended and Normal Bowel Sounds
Extremities: Edema (decreased), Splinter Hemorrhage and Janeway Lesions
Musculoskeletal: Negative Spinal Tenderness
Neurological: AO x 3
Lines: PICC (RUE)
Objective Data
Lab Data
Lab Results
12/21/24 03:53
12/21/24 03:53
Estimated Creat Clear 118 ml/min 12/21/24 03:53
Lactic Acid 1.3 mmol/L (0.7-2.0) 12/05/24 16:46
Total Bilirubin 0.9 mg/dl (0.2-1.3) 12/14/24 04:39
AST 24 U/L (17-59) 12/14/24 04:39
ALT 18 U/L (0-50) 12/14/24 04:39
Alkaline Phosphatase 55 U/L (38-126) 12/14/24 04:39
Amylase 139 U/L (30-110) H 12/05/24 04:04
Most recent labs reviewed.
Micro Results:
12/17/24 07:12 Blood Culture - Preliminary
Blood/Venous No Growth in 4 days- Final report to follow
12/16/24 03:40 Blood Culture - Final
Blood/Venous No Growth - Final Report
12/15/24 04:33 Blood Culture - Final
Blood/Venous No Growth - Final Report
12/14/24 16:37 Blood Culture - Final
Blood/Venous No Growth - Final Report
12/12/24 03:10 Blood Culture - Final
Blood/Venous Staph aureus MRSA
Gram Stain - Final
12/13/24 04:07 Blood Culture - Final
Blood/Venous No Growth - Final Report
12/14/24 12:53 Catheter Tip Culture - Final
Picc No Growth After 72 Hours
12/09/24 03:54 Blood Culture - Final
Blood/Venous Staph aureus MRSA
Gram Stain - Final
12/08/24 03:02 Blood Culture - Final
Blood/Venous Staph aureus MRSA
Gram Stain - Final
12/11/24 03:33 Blood Culture - Final
Blood/Venous No Growth - Final Report
12/10/24 03:14 Blood Culture - Final
Blood/Venous No Growth - Final Report
12/07/24 04:06 Blood Culture - Final
Blood/Venous Staph aureus MRSA
Gram Stain - Final
12/03/24 08:20 Blood Culture - Final
Blood/Venous Staph aureus MRSA
Gram Stain - Final
12/03/24 09:21 Blood Culture - Final
Blood/Venous Staph aureus MRSA
Gram Stain - Final
12/05/24 16:46 Blood Culture - Final
Blood/Venous Staph aureus MRSA
Gram Stain - Final
12/05/24 13:38 Blood Culture - Final
Blood/Venous Staph aureus MRSA
Gram Stain - Final
12/03/24 08:38 Urine Culture - Final
Urine S aureus-Methicillin Sensitive
12/03/24 18:44 MRSA Screen - Final
Nose No Methicillin Resistant Staphylococcus aureus isolated.
Imaging:
12/05/24 CT a/p: Mild inflammatory change adjacent to the body and tail of the pancreas, suggestive of mild pancreatitis. No peripancreatic fluid collection appreciated. No evidence of intestinal obstruction or bowel inflammatory process. Study is
slightly limited by lack of intravenous or oral contrast. Gallbladder sludge without evidence of acute cholecystitis. No radiopaque gallstones are seen.
12/04/24 MRI brain: Numerous scattered acute infarctions in a distribution that is most suggestive of embolic phenomenon in the setting of known IV drug abuse. Multiple small microhemorrhages are also demonstrated.
12/03/24 CXR: Clear lungs.
12/03/[address]: Possible cortical petechial hemorrhages in the left frontal lobe and left occipital lobe. Possible small old infarct, periventricular small vessel ischemic disease or edema due to underlying mass in the left occipital lobe.
--- NOTE | 2024-12-21 12:57 | CM ---
CM reviewed chart, met with Kiara from [facility], patients mother not present for time of visit- Kiara will call to speak with patients mother to discuss disposition from Acute Rehab, concern being discharging home with IV
antibiotics. Patient and mother seen bedside, agreeable for [facility] to call mother. Mother reports she does not want patient to discharge to a [facility] facility. CM discussed concern with IV antibiotics upon discharge. CM discussed if
[facility] agreeable to accept, patient will require insurance authorization. CM will continue to follow for all discharge planning needs.
Plan; [facility] reviewing patient, will need auth if accepted
--- NOTE | 2024-12-21 14:51 | W.PN.HOSP.TC ---
Today's Communication/Plan
-
Assessment / Plan
Assessment / Plan
General: No Apparent Distress, Comfortable and Conversant
HEENT: NormoCephalic, Moist mucous membranes, Atraumatic
Respiratory: Clear and Non Labored Respirations
Cardiac: S1/S2 and Regular Rhythm; No Rub or Gallop
GI: Soft, Non Tender, Non Distended and Normal Bowel Sounds
Musculoskeletal: No Edema, no deformity
: NO Balderas
Neuro: Awake, Alert, Nonfocal/grossly intact
Psych: Calm and Intact Judgment/Insight
Impression:
Patient is a 39-year-old male with a medical history of polysubstance abuse (skin popping with fentanyl) who was admitted after presentation with altered mental status. He was brought in by his parents with tremors and confusion. His mental status
abruptly declined and he was intubated for airway protection. CT brain showed possible left occipital lobe mass. His blood cultures are positive for MRSA. He was initially being managed in the ICU for treatment of encephalopathy and bacteremia.
Patient extubated. Now downgraded to general medical floors.
Assessment/plan:
Septic shock secondary to MRSA/MSSA bacteremia:
- Off vasopressors and downgraded to general medical floors
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
- Afebrile since 12/11, leukocytosis resolved
- Transesophageal echocardiogram 12/06 showed large mitral annulus vegetation
- No current plans for cardiothoracic surgery but will likely eventually require surgery after completing antibiotic course, will attempt to obtain preop dental x-rays in the meantime
- ID following, continue antibiotics with vancomycin and nafcillin, repeat cultures negative since 12/13
- Continue antibiotics with vancomycin and nafcillin through 01/23/2025 (6 weeks from sterile cultures on 12/13)
- PICC line discontinued
- follow-up with cardiothoracic surgery regarding options
Anemia requiring transfusion
- Slowly downtrending hemoglobin over the course of his hospitalization, was transfused 1 unit PRBCs for hemoglobin of 7.2 on 12/19
- Transfused a second unit PRBCs today 12/21 for hemoglobin 6.9
- No evidence of active bleeding, suspect due to ongoing infection
- Will monitor
Acute hypoxic respiratory failure.
Ventilation dependent respiratory failure.
12/13
Patient extubated
Acute toxic metabolic encephalopathy:
- Cautiously weaning ketamine and Versed drips and transitioning to Precedex, eyes open this morning and able to follow simple commands
- Continue EEG monitoring, no acute epileptiform activity captured
- Encephalopathy likely multifactorial due to bacteremia, opiate withdrawal, and and suspected septic emboli to brain
- MRI brain consistent with suspicion for septic emboli, repeat CT brain shows stable findings
- Continue mechanical ventilation for airway protection, vent management per wood craftsman
- Seroquel dose increased to 50 mg daily and 100 mg at night
- Will titrate down on opiate withdrawal medications as able
12/13
Mental status at baseline.
extubated
Left upper extremity DVT involving brachial vein
Given his multiple scattered acute infarctions with microhemorrhages, patient is high risk for ICH if systemic anticoagulation started
PICC line removed repeat ultrasound shows left brachial vein nonocclusive DVT.
continue subcu heparin.
Hypomagnesemia:
- Replete, monitor
LE:
- Resolved
Hypokalemia:
- Replete potassium and magnesium
- Monitor
Rhabdomyolysis:
- Resolved
Elevated LFTs:
- Suspect due to severe sepsis
- Resolved, monitor with treatment as above
Pancreatitis:
- Resolved
Lactic acidosis:
- Resolved, continue to monitor
Polysubstance abuse:
- Long history of injection drug abuse
- Now doing well with initiation of buprenorphine treatment currently 16 mg sublingual daily
- Plan for rehab after hospital discharge
CODE STATUS: Full code
DVT prophylaxis: SCDs
Diet: Regular diet
Family confusion: Discussed with mother, father, and sister at bedside
Disposition: Increase ambulation and possibly obtain Panorex prior to transfer to rehab.
Total time spent on today's encounter was 40 minutes
Anticipated Discharge: > 48 hours
Subjective/Interval History
-
Date of Service: December 21, 2024
Patient was seen and examined at bedside this morning. Feeling well. Hemoglobin dropped to 6.9 on labs this morning and so is being transfused another unit of PRBCs.
Objective Data
-
Labs:
Laboratory Results
12/21/24
03:53
WBC 6.7
Hgb 6.9 L*
Hct 20.2 L*
Plt Count 588 H
Sodium 136
Potassium 3.8
Chloride 105
Carbon Dioxide 28
BUN 9
Creatinine 1.0
Glucose 106 H
Calcium 7.4 L
Vital Signs:
Vital Signs
Temp Pulse Resp BP Pulse Ox
98.6 F 104 18 152/94 99
12/21/24 08:29 12/21/24 12:29 12/21/24 08:29 12/21/24 12:29 12/21/24 09:44
I&O
12/20/24 12/21/24 12/22/24
06:59 06:59 06:59
Intake Total 1054 / 1054 2378 / 2378 250 / 250
Output Total 1600 / 1600 1700 / 1700
Balance -546 / -546 678 / 678 250 / 250
Review of Systems
-
History Source: Patient
All other systems: Reviewed and negative
Physical Exam
-
General: No Apparent Distress
--- NOTE | 2024-12-21 16:12 | W.PN.CARDCBS ---
Addendum entered and electronically signed by Dimitrios Glaser MD 12/21/24 19:44:
39-year-old man with long history of substance abuse, now with Staph aureus infective endocarditis, large vegetation, multiple cerebral emboli, recent vent dependent respiratory failure with multisystem organ failure, and HFpEF. Received 1 unit of
packed cells today, being evaluated for acute care rehab, reportedly refused by [facility].
Current meds: Nafcillin IV every 4, subcu heparin, aspirin 81 mg a day, Subutex, clonidine, acetaminophen, thiamine, multivitamins, carvedilol 25 twice daily, potassium 40 mill equivalents daily, mag oxide 500 mg a day, furosemide 40 mg IV daily,
vancomycin, Subutex
Weight is 89.1 kg If accurate up 2.9 kg, 156/79, pulse 103, respiratory rate 16, afebrile, chronically ill-appearing but overall appears improved, lungs are relatively clear, tachycardic no obvious murmurs, JVD okay, still with significant edema,
patient reports he was able to stand and walk to hallway
Hemoglobin is 6.9, platelets are 588, magnesium is 1.8, potassium is 3.8, BUN and creatinine are 9 and 1.0, hemoglobin had been 8.2
Panorex no periapical abscesses
LDH and haptoglobin are pending reticulocytes pending
Impression:
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
Multisystem organ failure
Multiple septic cerebral emboli
Vent dependent respiratory failure early in course
Encephalopathy
Pancreatitis
LE
Anemia
Polysubstance abuse with history of IVDA/popping
HFpEF
Plan:
Continue IV Lasix, may need to uptitrate if weight does not diminish tomorrow.
Agree with checking for hemolysis, will likely need additional transfusion.
Discharge planning.
Original Note:
Today's Communication / Plan
-
Check labs for hemolytic anemia
Impression / Plan
-
PCP: None prior to admission
Primary Hunter Skin Diver: none prior to admission
Impression:
Presentation with change in mental status 12/03/24
Sepsis
Septic emboli by brain MRI
MSSA bacteremia
Pancreatitis
TME
VDRF
LE
Rhabdomyolysis
Elevated LFTs
Thrombocytopenia
Anemia, possibly hemolytic
IVDA since age 19
Vaping
Hypokalemia
Acute HFpEF
LUE DVT
ECHO 12/04/24: EF 55 to 60%, no regional wall motion abnormalities noted, no evidence of vegetation seen
KELI 12/07/24: EF 65%, large endocarditis/vegetations attached to mitral annulus measuring ~1x1cm each, mild MR, no Tricuspid or aortic vegetations
Echo 12/14/24: EF 60-65%, thick echodensity of mitral annulus 1.6x20cm, trace MR
Plan:
-Admitted with confusion and generalized weakness, changes in urine output and back pain. Then developed VDRF in the setting of sepsis, septic shock, TME, brain lesions concerning for embolic disease and rhabdo. KELI with evidence of large
endocarditis/vegetations attached to the mitral annulus.
-Hgb dropped again to 6.9 on 12/21/2024, labs reviewed by me. Patient was given another unit of PRBCs.
-Concern for hemolytic anemia related to his mitral valve endocarditis. Check LDH and reticulocyte counts, labs ordered by me.
-Patient is not on systemic anticoagulation nor OAC. He is ordered heparin 5000 units SQ every 8 hours. There was evidence of LUE DVT and patient is not being treated with OAC due to risk of hemorrhage with septic emboli on MRI of brain earlier
this admission.
-Patient being evaluated by [facility] for acute care rehab, but the question remains of what will happen once he is on the rehab and prior to the completion of his IV antibiotics. CM is working with patient and family on safe discharge
plan. Situation is complicated by the need for long-term IV antibiotics combined with the needs for PT/OT and history of IV drug abuse
-ID is recommending 6 weeks of IV antibiotics to run through 01/23/25.
-From a cardiac standpoint, patient was found to have large endocarditis vegetations attached to the mitral annulus on KELI 12/07/2024. Patient was evaluated by CT surgery and following documented compliance with antibiotics and substance abuse
treatment patient will be considered for mitral valve surgery. If there was any emergent decompensation then more urgent surgical intervention could be considered, but this would be higher risk.
Weight is stable at 190 lbs by my review of VS on 12/20/2024. Patient diuresed with Lasix IV earlier this admission and then transitioned to Lasix 40 mg PO daily. He did require one additional dose of Lasix 20 mg IV x 1 12/18/24 for weight gain.
-Currently ordered Lasix 40 mg IV daily. Patient was not taking a diuretic prior to admission. Continue Lasix 40 mg PO daily upon discharge
-EF preserved at 60 to 65% by echo 12/14/2024.
-New to Coreg 25 mg BID this admission
-New to clonidine 0.3 mg QID this admission
-Cardiology follow-up arranged
Progress Note - Hunter Skin Diver
Subjective
Date of Service: December 21, 2024
No chest pain while walking with PT
Objective
Labs:
12/21/24 03:53
12/21/24 03:53
Labs
Hgb 6.9 g/dL (13.0-18.0) L* 12/21/24 03:53
Hct 20.2 % (39.0-52.0) L* 12/21/24 03:53
Plt Count 588 10^3/uL (130-400) H 12/21/24 03:53
Sodium 136 mmol/L (135-145) 12/21/24 03:53
Potassium 3.8 mmol/L (3.5-5.1) 12/21/24 03:53
BUN 9 mg/dl (9-20) 12/21/24 03:53
Creatinine 1.0 mg/dL (0.7-1.3) 12/21/24 03:53
Glucose 106 mg/dl (70-99) H 12/21/24 03:53
Vital Signs and I&O:
Vital Signs
Temp Pulse Resp BP Pulse Ox
98.6 F 104 18 152/94 99
12/21/24 08:29 12/21/24 12:29 12/21/24 08:29 12/21/24 12:29 12/21/24 09:44
Vital Signs
Temp Pulse Resp BP Pulse Ox
98.6 F 104 18 152/94 99
12/21/24 08:29 12/21/24 12:29 12/21/24 08:29 12/21/24 12:29 12/21/24 09:44
Intake & Output
12/19/24 12/20/24 12/21/24 12/22/24
06:59 06:59 06:59 06:59
Intake Total 2404 / 2404 1054 / 1054 2378 / 2378 250 / 250
Output Total 3900 / 3900 1600 / 1600 1700 / 1700
Balance -1496 / -1496 -546 / -546 678 / 678 250 / 250
Physical Exam
Physical Exam
GEN: NAD
LUNGS: RA
CV: Sinus tachycardia on tele
[2024-12-21] MEDS: MELATONIN 10 MG PO (23:15)
[2024-12-21] MEDS: SUBUTEX 4 MG SL (23:15)
[2024-12-22] MEDS: NAFCIL 108 MG IV ×7 (00:08→23:15)
[2024-12-22 04:36] VITALS: BMI 25.2
[2024-12-22 05:03] LABS: Hematocrit 22.7 % (39.0-52.0); Hemoglobin 7.7 g/dL (13.0-18.0); Mean Corp Hgb Conc. 33.9 g/dL (33.0-37.0); Mean Corpuscular Volume 87.0 fL (80.0-94.0); Nucleated Red Blood Cells % 0 % (-); Platelet Count 526 10^3/uL (130-400); Red Cell Dist. Width 15.9 % (11.5-14.5); Reticulocyte Count 4.4 % (0.4-2.8)
[2024-12-22 05:31] LABS: Blood Urea Nitrogen 12 mg/dl (9-20); Calcium 7.7 mg/dl (8.4-10.2); Carbon Dioxide 30 mmol/L (22-30); Chloride 104 mmol/L (98-107); Estimated Creatinine Clearance > 125 ml/min; Glucose 92 mg/dl (70-99); LDH 249 U/L (120-246); Magnesium 1.8 mg/dl (1.6-2.3); Potassium 4.3 mmol/L (3.5-5.1); Sodium 136 mmol/L (135-145); eGFR > 60.00
[2024-12-22] MEDS: VANCOCIN 150 IV ×2 (05:34→17:51)
[2024-12-22 07:00] VITALS: BP 160/93
--- NOTE | 2024-12-22 08:22 | PHA.VAN.FU ---
Addendum entered and electronically signed by Isela Cox 12/22/24 14:57:
BUN and SCr ordered, per protocol
Addendum entered and electronically signed by Yumiko Hirsch RPH 12/22/24 09:04:
Agree with resident's assessment and plan below.
Obtaining levels to assess patient-specific PK with new regimen.
Original Note:
Vancomycin Assessment / Plan
- Assessment
Renal Function: Stable
WBC's are: WNL
In the past 24 hrs, patient has been: Afebrile
Concomitant Antimicrobials: nafcillin
- Dosing Plan
Continue: 750mg q12h
- Monitoring Plan
Peak Level: 12/22 2099
Trough Level: 12/23 529
- Follow Up
Pharmacy will continue to follow.
Vancomycin Follow UP
- -
Patient Age: 39
Patient Sex: Male
Vancomycin Day #: 20
Indication: Bacteremia
Requesting Provider: Dr. Fofana / Teto
Pertinent Antimicrobial Allergies:
NKDA
Height / Weight:
Height 6 ft 2 in
Actual Weight 89.131 kg
IBW in k.2
Pertinent Past Medical History: IV JOCELIN
- Vital Signs / Lab Results
Temp Pulse Resp BP Pulse Ox
97.9 F 96 20 137/93 97
12/21/24 23:00 12/21/24 23:00 12/21/24 23:00 12/21/24 23:00 12/21/24 23:00
Lab Results - Hematology
12/20/24 12/21/24 12/22/24
08:23 03:53 04:44
WBC 8.6 6.7 6.2
Lab Results - Chemistry
12/20/24 12/21/24 12/22/24
08:23 03:53 04:44
BUN 8 L 9 12
Creatinine 0.9 1.0 0.8
Estimated Creat Clear > 125 118 > 125
Microbiology Results
12/17/24 07:12 Blood Culture - Final
Blood/Venous No Growth - Final Report
12/16/24 03:40 Blood Culture - Final
Blood/Venous No Growth - Final Report
12/15/24 04:33 Blood Culture - Final
Blood/Venous No Growth - Final Report
Therapeutic Drug Monitoring
Vancomycin Peak 31.8 ug/ml (18-26) H 12/20/24 14:22
Random Vancomycin 13.9 ug/ml 12/21/24 03:53
[2024-12-22] MEDS: LASIX 40 MG IV (08:45)
[2024-12-22] MEDS: HEPARIN 5000 UNITS SC ×3 (08:45→23:14)
[2024-12-22] MEDS: THERAGRAN 1 TABLET PO (08:46)
[2024-12-22] MEDS: VITAMIN B1 100 MG PO (08:46)
[2024-12-22] MEDS: SUBUTEX 16 MG SL (08:46)
[2024-12-22] MEDS: MAGNESIUM OXIDE 500 MG PO (08:46)
[2024-12-22] MEDS: LOW STRENGTH ASPIRIN 81 MG PO (08:47)
[2024-12-22] MEDS: KCL 40 MEQ PO (08:47)
[2024-12-22] MEDS: CATAPRES 0.3 MG PO ×4 (08:47→21:10)
[2024-12-22] MEDS: COREG 25 MG PO ×2 (08:47→20:20)
[2024-12-22] MEDS: DESENEX/MITRAZOL/ZEASORB 1 APPLIC TOPICAL ×2 (08:47→20:17)
[2024-12-22] MEDS: TYLENOL 1000 MG PO ×3 (08:48→23:15)
--- NOTE | 2024-12-22 11:45 | W.PN.CARDCBS ---
Today's Communication / Plan
-
Continue gentle IV diuresis
Add spironolactone
Impression / Plan
-
PCP: None prior to admission
Primary Astro Technician: none prior to admission
Impression:
Presentation with change in mental status 12/03/24
Sepsis
Septic emboli by brain MRI
MSSA bacteremia
Pancreatitis
TME
VDRF
LE
Rhabdomyolysis
Elevated LFTs
Thrombocytopenia
Anemia, possibly hemolytic
IVDA since age 19
Vaping
Hypokalemia
Acute HFpEF
LUE DVT
ECHO 12/04/24: EF 55 to 60%, no regional wall motion abnormalities noted, no evidence of vegetation seen
KELI 12/07/24: EF 65%, large endocarditis/vegetations attached to mitral annulus measuring ~1x1cm each, mild MR, no Tricuspid or aortic vegetations
Echo 12/14/24: EF 60-65%, thick echodensity of mitral annulus 1.6x20cm, trace MR
Plan:
-Admitted with confusion and generalized weakness, changes in urine output and back pain. Then developed VDRF in the setting of sepsis, septic shock, TME, brain lesions concerning for embolic disease and rhabdo. KELI with evidence of large
endocarditis/vegetations attached to the mitral annulus.
-Found to have large vegetation attached to the mitral annulus on KELI 12/07/2024. Patient was evaluated by CT surgery and following documented compliance with antibiotics and substance abuse treatment patient will be considered for mitral valve
surgery. If there was any emergent decompensation then more urgent surgical intervention could be considered, but this would be higher risk.
-Appreciate ID input, plan for 6 weeks of IV antibiotics to run through 01/23/25.
-EF preserved at 60 to 65% by echo 12/14/2024.
-Still with peripheral edema on exam which may be related to low oncotic pressure as well as CHF. proBNP remains elevated.
-Plan to continue daily IV Lasix for now
-Given hypertension and hypokalemia add spironolactone
-Follow renal function and electrolytes as well as daily weights
Progress Note - Astro Technician
Subjective
Date of Service: December 22, 2024
No acute overnight events. Patient is resting comfortably in bed this morning. No cardiac complaints.
Objective
Labs:
12/22/24 04:44
12/22/24 04:44
Labs
Hgb 7.7 g/dL (13.0-18.0) L 12/22/24 04:44
Hct 22.7 % (39.0-52.0) L 12/22/24 04:44
Plt Count 526 10^3/uL (130-400) H 12/22/24 04:44
Sodium 136 mmol/L (135-145) 12/22/24 04:44
Potassium 4.3 mmol/L (3.5-5.1) 12/22/24 04:44
BUN 12 mg/dl (9-20) 12/22/24 04:44
Creatinine 0.8 mg/dL (0.7-1.3) 12/22/24 04:44
Glucose 92 mg/dl (70-99) 12/22/24 04:44
Vital Signs and I&O:
Vital Signs
Temp Pulse Resp BP Pulse Ox
98.0 F 103 14 160/93 97
12/22/24 07:00 12/22/24 08:45 12/22/24 07:00 12/22/24 08:45 12/22/24 07:00
Vital Signs
Temp Pulse Resp BP Pulse Ox
98.0 F 103 14 160/93 97
12/22/24 07:00 12/22/24 08:45 12/22/24 07:00 12/22/24 08:45 12/22/24 07:00
Intake & Output
07/30/25 07/31/25 08/01/25 08/02/25
06:59 06:59 06:59 06:59
Intake Total 1054 / 1054 2378 / 2378 1330 / 1330
Output Total 1600 / 1600 1700 / 1700 1300 / 1300
Balance -546 / -546 678 / 678 30 / 30
Physical Exam
Physical Exam
Gen: NAD, AAOx3
HEENT: NC/AT, sclera anicteric
Neck: No JVD
CV: RRR, NL s1/s2, no M/R/G
Lungs: CTAB
Abd: S/ND
Ext: Non pitting peripheral edema
Skin: Warm, dry
Neuro: Non-focal
[2024-12-22] MEDS: ALDACTONE 25 MG PO (12:33)
--- NOTE | 2024-12-22 14:58 | CM ---
CM reviewed chart, reviewed with liaison, Kiara, from [facility], unable to accept patient due to concerns for IV antibiotics. CM spoke with patients father several times, aware [facility] unable to accept. Family agreeable to expand search
distance- additional referrals placed to [facility], Rehab at [facility], [facility], [facility].
CM discussed disposition concern regarding need for continued IV antibiotics after acute rehab, patient unable to return home with IV antibiotics/home infusion company due to patients history of IV drug use- family aware, however does not want
patient to discharge to SNF. CM discussed patient unable to utilize outpatient infusion center as patient dose more than once a day. CM will continue to search for accepting acute rehab, will require insurance auth if accepting facility found.
Plan; additional referrals placed for acute rehab, dispo efforts difficult due to pts hx.
[2024-12-22 15:00] VITALS: BP 123/79
--- NOTE | 2024-12-22 15:26 | W.PN.HOSP.TC ---
Today's Communication/Plan
-
Assessment / Plan
Assessment / Plan
General: No Apparent Distress, Comfortable and Conversant
HEENT: NormoCephalic, Moist mucous membranes, Atraumatic, poor dentition
Respiratory: Clear and Non Labored Respirations
Cardiac: S1/S2 and Regular Rhythm; No Rub or Gallop
GI: Soft, Non Tender, Non Distended and Normal Bowel Sounds
Musculoskeletal: No Edema, no deformity
: NO Balderas
Neuro: Awake, Alert, Nonfocal/grossly intact
Psych: Calm and Intact Judgment/Insight
Impression:
Patient is a 39-year-old male with a medical history of polysubstance abuse (skin popping with fentanyl) who was admitted after presentation with altered mental status. He was brought in by his parents with tremors and confusion. His mental status
abruptly declined and he was intubated for airway protection. CT brain showed possible left occipital lobe mass. His blood cultures are positive for MRSA. He was initially being managed in the ICU for treatment of encephalopathy and bacteremia.
Patient extubated. Now downgraded to general medical floors.
Assessment/plan:
Septic shock secondary to MRSA/MSSA bacteremia:
- Off vasopressors and downgraded to general medical floors
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
- Afebrile since 12/11, leukocytosis resolved
- Transesophageal echocardiogram 12/06 showed large mitral annulus vegetation
- No current plans for cardiothoracic surgery but will likely eventually require surgery after completing antibiotic course, preop dental x-rays obtained 12/21
- ID following, continue antibiotics with vancomycin and nafcillin, repeat cultures negative since 12/13
- Continue antibiotics with vancomycin and nafcillin through 01/23/2025 (6 weeks from sterile cultures on 12/13)
- PICC line discontinued
- follow-up with cardiothoracic surgery regarding options
Anemia requiring transfusion
- Slowly downtrending hemoglobin over the course of his hospitalization, was transfused 1 unit PRBCs for hemoglobin of 7.2 on 12/19
- Transfused a second unit PRBCs 12/21 for hemoglobin 6.9, hemoglobin appropriately improved to 7.7 on labs this morning
- No evidence of active bleeding, suspect due to ongoing infection
- Will monitor
Acute hypoxic respiratory failure.
Ventilation dependent respiratory failure.
12/13
Patient extubated
Acute toxic metabolic encephalopathy:
- EEG with no acute epileptiform activity captured
- Encephalopathy likely multifactorial due to bacteremia, opiate withdrawal, and and suspected septic emboli to brain
- MRI brain consistent with suspicion for septic emboli, repeat CT brain shows stable findings
- Now resolved, patient at baseline mental status, extubated 12/13
Left upper extremity DVT involving brachial vein
Given his multiple scattered acute infarctions with microhemorrhages, patient is high risk for ICH if systemic anticoagulation started
PICC line removed repeat ultrasound shows left brachial vein nonocclusive DVT.
continue subcu heparin.
Hypomagnesemia:
- Resolved, monitor
LE:
- Resolved
Hypokalemia:
- Resolved
- Monitor
Rhabdomyolysis:
- Resolved
Elevated LFTs:
- Suspect due to severe sepsis
- Resolved, monitor with treatment as above
Pancreatitis:
- Resolved
Lactic acidosis:
- Resolved, continue to monitor
Polysubstance abuse:
- Long history of injection drug abuse
- Now doing well with initiation of buprenorphine treatment, currently 16 mg sublingual daily and 4 mg at night
- Plan for rehab after hospital discharge
CODE STATUS: Full code
DVT prophylaxis: SCDs
Diet: Regular diet
Family confusion: Discussed with mother, father, and sister at bedside
Disposition: Rehab for physical therapy and IV antibiotics
Total time spent on today's encounter was 40 minutes
Anticipated Discharge: > 48 hours
Subjective/Interval History
-
Date of Service: December 22, 2024
Patient was seen and examined at bedside this morning. Withdrawal symptoms in the evening now better controlled with addition of evening dose of Subutex. Awaiting rehab placement. Continuing IV vancomycin. Dental imaging obtained yesterday in
anticipation of potential cardiothoracic surgery.
Objective Data
-
Labs:
Laboratory Results
12/22/24
04:44
WBC 6.2
Hgb 7.7 L
Hct 22.7 L
Plt Count 526 H
Sodium 136
Potassium 4.3
Chloride 104
Carbon Dioxide 30
BUN 12
Creatinine 0.8
Glucose 92
Calcium 7.7 L
Vital Signs:
Vital Signs
Temp Pulse Resp BP Pulse Ox
98.0 F 100 14 120/76 97
12/22/24 07:00 12/22/24 12:33 12/22/24 07:00 12/22/24 12:33 12/22/24 07:00
I&O
12/21/24 12/22/24 12/23/24
06:59 06:59 06:59
Intake Total 2378 / 2378 1330 / 1330
Output Total 1700 / 1700 1300 / 1300
Balance 678 / 678
Review of Systems
-
History Source: Patient
All other systems: Reviewed and negative
Physical Exam
-
General: No Apparent Distress
--- NOTE | 2024-12-22 18:48 | W.PN.ID1 ---
Date of Service
Date of Service: December 22, 2024
Today's Communication
Continue abx's.
Assessment / Plan
# Complicated Staphylococcus aureus (MRSA/MSSA) bacteremia
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
# Multiple embolic CVA
# LUE PICC associated DVT, PICC dc'd 12/14
# Fever and leukocytosis resolved
# s/p Intubated 12/03, extubated 12/12/24
# Polysubstance abuse (cocaine and fentanyl 'muscle-ling')
# hx MRSA wound abscesses (2010)
# hx of Viridans strep bacteremia (2010)
- 12/14 repeat TTE: 1.6 x 2 cm echodensity MV
- 12/12/24 Last positive Blood cx MRSA
- 12/13/24 forward, negtive blood cx's.
- 12/14/24 PICC D/C'ed; tip cx without growth
- HIV screen negative.
- Hepatitic C Ab positive: hep C RNA pending
- Per CTS, no emergent need for valve surgery at this time.
- There is discrepancy between blood cx PCR (identified as MRSA) and phenotype (identified as MSSA)
Cefoxitin induced test negative. PBP2a negative.
Discussed with S. aureus experts.
Best to treat as both MRSA and MSSA since there are only few publications regarding this particular strain of S. aureus.
-> Continue IV Vancomycin and Nafcillin 2g IV q4h (both crosses blood-brain barrier), 6 weeks of IV antibiotics from negative blood cx, through 01/23/2025
- Monitor renal function and LFT's while on nafcillin.
- Close monitoring of vancomycin levels to prevent nephrotoxicity. Appreciate pharmacists.
Chief Complaint
-: Bacteremia and Other (embolic CVA)
Subjective / Review of Systems
Disappointed about [facility] declined his case.
Vital Signs / Physical Exam
Vital Signs
Vital Signs
Temp Pulse Resp BP Pulse Ox
97.8 F 100 18 126/79 99
12/22/24 15:00 12/22/24 17:50 12/22/24 15:00 12/22/24 17:50 12/22/24 15:00
Physical Exam
Constitutional: No Acute Distress
Eyes: No Conjunctival Hemorrhage and Sclera Anicteric
Oropharyngeal: Poor Dention
Cardiovascular: Regular Rate and S1/S2
Pulmonary: Clear
Gastrointestinal: Soft, Non Tender, Non Distended and Normal Bowel Sounds
Extremities: Edema (decreased)
Musculoskeletal: Negative Spinal Tenderness
Neurological: AO x 3
Lines: PICC (RUE)
Objective Data
Lab Data
Lab Results
12/22/24 04:44
12/22/24 04:44
Estimated Creat Clear > 125 ml/min 12/22/24 04:44
Lactic Acid 1.3 mmol/L (0.7-2.0) 12/05/24 16:46
Total Bilirubin 0.9 mg/dl (0.2-1.3) 12/14/24 04:39
AST 24 U/L (17-59) 12/14/24 04:39
ALT 18 U/L (0-50) 12/14/24 04:39
Alkaline Phosphatase 55 U/L (38-126) 12/14/24 04:39
Amylase 139 U/L (30-110) H 12/05/24 04:04
Most recent labs reviewed.
Micro Results:
12/17/24 07:12 Blood Culture - Final
Blood/Venous No Growth - Final Report
12/16/24 03:40 Blood Culture - Final
Blood/Venous No Growth - Final Report
12/15/24 04:33 Blood Culture - Final
Blood/Venous No Growth - Final Report
12/14/24 16:37 Blood Culture - Final
Blood/Venous No Growth - Final Report
12/12/24 03:10 Blood Culture - Final
Blood/Venous Staph aureus MRSA
Gram Stain - Final
12/13/24 04:07 Blood Culture - Final
Blood/Venous No Growth - Final Report
12/14/24 12:53 Catheter Tip Culture - Final
Picc No Growth After 72 Hours
12/09/24 03:54 Blood Culture - Final
Blood/Venous Staph aureus MRSA
Gram Stain - Final
12/08/24 03:02 Blood Culture - Final
Blood/Venous Staph aureus MRSA
Gram Stain - Final
12/11/24 03:33 Blood Culture - Final
Blood/Venous No Growth - Final Report
12/10/24 03:14 Blood Culture - Final
Blood/Venous No Growth - Final Report
12/07/24 04:06 Blood Culture - Final
Blood/Venous Staph aureus MRSA
Gram Stain - Final
12/03/24 08:20 Blood Culture - Final
Blood/Venous Staph aureus MRSA
Gram Stain - Final
12/03/24 09:21 Blood Culture - Final
Blood/Venous Staph aureus MRSA
Gram Stain - Final
12/05/24 16:46 Blood Culture - Final
Blood/Venous Staph aureus MRSA
Gram Stain - Final
12/05/24 13:38 Blood Culture - Final
Blood/Venous Staph aureus MRSA
Gram Stain - Final
12/03/24 08:38 Urine Culture - Final
Urine S aureus-Methicillin Sensitive
12/03/24 18:44 MRSA Screen - Final
Nose No Methicillin Resistant Staphylococcus aureus isolated.
Imaging:
12/05/24 CT a/p: Mild inflammatory change adjacent to the body and tail of the pancreas, suggestive of mild pancreatitis. No peripancreatic fluid collection appreciated. No evidence of intestinal obstruction or bowel inflammatory process. Study is
slightly limited by lack of intravenous or oral contrast. Gallbladder sludge without evidence of acute cholecystitis. No radiopaque gallstones are seen.
12/04/24 MRI brain: Numerous scattered acute infarctions in a distribution that is most suggestive of embolic phenomenon in the setting of known IV drug abuse. Multiple small microhemorrhages are also demonstrated.
12/03/24 CXR: Clear lungs.
12/03/[address]: Possible cortical petechial hemorrhages in the left frontal lobe and left occipital lobe. Possible small old infarct, periventricular small vessel ischemic disease or edema due to underlying mass in the left occipital lobe.
[2024-12-22] MEDS: SUBUTEX 4 MG SL (21:10)
[2024-12-22] MEDS: MELATONIN 10 MG PO (21:10)
[2024-12-22 23:00] VITALS: BP 110/68
[2024-12-23] MEDS: NAFCIL 108 MG IV ×6 (03:09→23:44)
[2024-12-23 04:04] VITALS: BMI 25.4
[2024-12-23 04:50] LABS: Hematocrit 22.0 % (39.0-52.0); Hemoglobin 7.5 g/dL (13.0-18.0)
[2024-12-23 05:01] LABS: Blood Urea Nitrogen 11 mg/dl (9-20); Estimated Creatinine Clearance > 125 ml/min
[2024-12-23] MEDS: VANCOCIN 150 IV ×2 (05:11→17:43)
[2024-12-23 07:00] VITALS: BP 170/110
[2024-12-23] MEDS: VITAMIN B1 100 MG PO (08:08)
[2024-12-23] MEDS: SUBUTEX 16 MG SL (08:08)
[2024-12-23] MEDS: TYLENOL 1000 MG PO ×3 (08:08→23:43)
[2024-12-23] MEDS: ALDACTONE 25 MG PO (08:09)
[2024-12-23] MEDS: CATAPRES 0.3 MG PO ×4 (08:09→21:43)
[2024-12-23] MEDS: THERAGRAN 1 TABLET PO (08:09)
[2024-12-23] MEDS: HEPARIN 5000 UNITS SC ×3 (08:09→23:43)
[2024-12-23] MEDS: LOW STRENGTH ASPIRIN 81 MG PO (08:09)
[2024-12-23] MEDS: MAGNESIUM OXIDE 500 MG PO (08:09)
[2024-12-23] MEDS: COREG 25 MG PO ×2 (08:09→20:08)
[2024-12-23] MEDS: DESENEX/MITRAZOL/ZEASORB 1 APPLIC TOPICAL ×2 (08:09→21:44)
[2024-12-23] MEDS: LASIX 40 MG IV (08:10)
--- NOTE | 2024-12-23 09:48 | PHA.VAN.FU ---
Vancomycin Assessment / Plan
- Assessment
Renal Function: Stable
WBC's are: WNL
In the past 24 hrs, patient has been: Afebrile
Concomitant Antimicrobials: Nafcillin
- Assessment - Therapeutic Drug Monitoring
Extrapolated Cmax (mcg/mL): 24.2
Peak level was drawn: Appropriately
Extrapolated Cmin (mcg/mL): 14
Trough Drawn: Appropriately
Levels were drawn: At steady state
Calculated AUC (mcg*h/mL): 449
Calculated ke: 0.0497
Calculated half life (H): 13.9
Calculated Vd (L): 67.15
Calculated Vanc CL (ml/min): 55.67
- Dosing Plan
Continue: 750mg Q12H
Dosing Comments: T1/2 has increased to 13.9 from calculated 11. Will continue to monitor
- Monitoring Plan
No level(s) ordered at this time: Consider levels in next few days
- Follow Up
Pharmacy will continue to follow.
Vancomycin Follow UP
- -
Patient Age: 39
Patient Sex: Male
Vancomycin Day #: 21
Indication: Bacteremia
Requesting Provider: Dr. Fofana / Teto
Pertinent Antimicrobial Allergies:
NKDA
Height / Weight:
Height 6 ft 2 in
Actual Weight 89.613 kg
IBW in k.2
Pertinent Past Medical History: IV JOCELIN
- Vital Signs / Lab Results
Temp Pulse Resp BP Pulse Ox
98.3 F 105 20 170/110 99
12/23/24 07:00 12/23/24 07:00 12/23/24 07:00 12/23/24 07:00 12/23/24 07:00
Lab Results - Hematology
12/21/24 12/22/24
03:53 04:44
WBC 6.7 6.2
Lab Results - Chemistry
12/21/24 12/22/24 12/23/24
03:53 04:44 04:14
BUN 9 12 11
Creatinine 1.0 0.8 0.8
Estimated Creat Clear 118 > 125 > 125
Microbiology Results
12/17/24 07:12 Blood Culture - Final
Blood/Venous No Growth - Final Report
Therapeutic Drug Monitoring
Vancomycin Peak 22.0 ug/ml (18-26) 12/22/24 20:48
Vancomycin Trough 15.2 ug/ml (5-20) 12/23/24 04:14
Random Vancomycin 13.9 ug/ml 12/21/24 03:53
--- NOTE | 2024-12-23 12:53 | W.PN.CARDCBS ---
Today's Communication / Plan
-
Continue Aldactone, IV diuresis
Monitor electrolytes and renal function
Strict intake and outputs
Impression / Plan
-
PCP: None prior to admission
Primary Integration Lead: none prior to admission
Impression:
Presentation with change in mental status 12/03/24
Sepsis
Septic emboli by brain MRI
MSSA bacteremia
Pancreatitis
TME
VDRF
LE
Rhabdomyolysis
Elevated LFTs
Thrombocytopenia
Anemia, possibly hemolytic
IVDA since age 19
Vaping
Hypokalemia
Acute HFpEF
LUE DVT
ECHO 12/04/24: EF 55 to 60%, no regional wall motion abnormalities noted, no evidence of vegetation seen
KELI 12/07/24: EF 65%, large endocarditis/vegetations attached to mitral annulus measuring ~1x1cm each, mild MR, no Tricuspid or aortic vegetations
Echo 12/14/24: EF 60-65%, thick echodensity of mitral annulus 1.6x20cm, trace MR
Plan:
-Admitted with confusion and generalized weakness, changes in urine output and back pain. Then developed VDRF in the setting of sepsis, septic shock, TME, brain lesions concerning for embolic disease and rhabdo. KELI with evidence of large
endocarditis/vegetations attached to the mitral annulus.
-Found to have large vegetation attached to the mitral annulus on KELI 12/07/2024. Patient was evaluated by CT surgery and following documented compliance with antibiotics and substance abuse treatment patient will be considered for mitral valve
surgery. If there was any emergent decompensation then more urgent surgical intervention could be considered, but this would be higher risk.
-Appreciate ID input, plan for 6 weeks of IV antibiotics to run through 01/23/25.
-EF preserved at 60 to 65% by echo 12/14/2024.
-Still with peripheral edema on exam which may be related to low oncotic pressure as well as CHF. proBNP remains elevated.
- Continue spironolactone, IV diuresis
� Encourage out of bed/PT OT
-Follow renal function and electrolytes as well as daily weights
Progress Note - Integration Lead
Subjective
Date of Service: December 23, 2024
Patient seen and examined this morning. No acute events overnight. Patient resting comfortably in bed. Patient denies any chest pain, shortness of breath, weakness. Notes lower extremity swelling.
Objective
Labs:
12/23/24 04:14
12/23/24 04:14
Labs
Hgb 7.5 g/dL (13.0-18.0) L 12/23/24 04:14
Hct 22.0 % (39.0-52.0) L 12/23/24 04:14
Plt Count 526 10^3/uL (130-400) H 12/22/24 04:44
Sodium 136 mmol/L (135-145) 12/22/24 04:44
Potassium 4.3 mmol/L (3.5-5.1) 12/22/24 04:44
BUN 11 mg/dl (9-20) 12/23/24 04:14
Creatinine 0.8 mg/dL (0.7-1.3) 12/23/24 04:14
Glucose 92 mg/dl (70-99) 12/22/24 04:44
Vital Signs and I&O:
Vital Signs
Temp Pulse Resp BP Pulse Ox
98.3 F 105 20 170/110 99
12/23/24 07:00 12/23/24 07:00 12/23/24 07:00 12/23/24 07:00 12/23/24 07:00
Vital Signs
Temp Pulse Resp BP Pulse Ox
98.3 F 105 20 170/110 99
12/23/24 07:00 12/23/24 07:00 12/23/24 07:00 12/23/24 07:00 12/23/24 07:00
Intake & Output
12/21/24 12/22/24 12/23/24 12/24/24
06:59 06:59 06:59 06:59
Intake Total 2378 / 2378 1330 / 1330 690 / 690
Output Total 1700 / 1700 1300 / 1300 1490 / 1490
Balance 678 / 678 30 / 30 -800 / -800
Physical Exam
Physical Exam
Gen: NAD, AAOx3
HEENT: NC/AT, sclera anicteric
Neck: No JVD
CV: RRR, NL s1/s2, no M/R/G
Lungs: CTAB
Abd: S/ND
Ext: Non pitting peripheral edema
Skin: Warm, dry
Neuro: Non-focal
[2024-12-23 15:00] VITALS: BP 151/95
--- NOTE | 2024-12-23 15:12 | W.PN.HOSP.TC ---
Today's Communication/Plan
-
Assessment / Plan
Assessment / Plan
General: No Apparent Distress, Comfortable and Conversant
HEENT: NormoCephalic, Moist mucous membranes, Atraumatic, poor dentition
Respiratory: Clear and Non Labored Respirations
Cardiac: S1/S2 and Regular Rhythm; No Rub or Gallop
GI: Soft, Non Tender, Non Distended and Normal Bowel Sounds
Musculoskeletal: No Edema, no deformity
: NO Balderas
Neuro: Awake, Alert, Nonfocal/grossly intact
Psych: Calm and Intact Judgment/Insight
Impression:
Patient is a 39-year-old male with a medical history of polysubstance abuse (skin popping with fentanyl) who was admitted after presentation with altered mental status. He was brought in by his parents with tremors and confusion. His mental status
abruptly declined and he was intubated for airway protection. CT brain showed possible left occipital lobe mass. His blood cultures are positive for MRSA. He was initially being managed in the ICU for treatment of encephalopathy and bacteremia.
Patient extubated. Now downgraded to general medical floors.
Assessment/plan:
Septic shock secondary to MRSA/MSSA bacteremia:
- Off vasopressors and downgraded to general medical floors
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
- Afebrile since 12/11, leukocytosis resolved
- Transesophageal echocardiogram 12/06 showed large mitral annulus vegetation
- No current plans for cardiothoracic surgery but will likely eventually require surgery after completing antibiotic course, preop dental x-rays obtained 12/21
- ID following, continue antibiotics with vancomycin and nafcillin, repeat cultures negative since 12/13
- Continue antibiotics with vancomycin and nafcillin through 01/23/2025 (6 weeks from sterile cultures on 12/13)
- PICC line discontinued
- follow-up with cardiothoracic surgery regarding options
Anemia requiring transfusion
- Slowly downtrending hemoglobin over the course of his hospitalization, was transfused 1 unit PRBCs for hemoglobin of 7.2 on 12/19
- Transfused a second unit PRBCs 12/21 for hemoglobin 6.9, hemoglobin appropriately improved, remained stable at 7.5 on labs this morning
- No evidence of active bleeding, suspect due to ongoing infection and frequent blood draws, will attempt to limit blood draws
- Will monitor
Acute hypoxic respiratory failure.
Ventilation dependent respiratory failure.
12/13
Patient extubated
Acute toxic metabolic encephalopathy:
- EEG with no acute epileptiform activity captured
- Encephalopathy likely multifactorial due to bacteremia, opiate withdrawal, and and suspected septic emboli to brain
- MRI brain consistent with suspicion for septic emboli, repeat CT brain shows stable findings
- Now resolved, patient at baseline mental status, extubated 12/13
Left upper extremity DVT involving brachial vein
Given his multiple scattered acute infarctions with microhemorrhages, patient is high risk for ICH if systemic anticoagulation started
PICC line removed repeat ultrasound shows left brachial vein nonocclusive DVT.
continue subcu heparin.
Hypomagnesemia:
- Resolved, monitor
LE:
- Resolved
Hypokalemia:
- Resolved
- Monitor
Rhabdomyolysis:
- Resolved
Elevated LFTs:
- Suspect due to severe sepsis
- Resolved, monitor with treatment as above
Pancreatitis:
- Resolved
Lactic acidosis:
- Resolved, continue to monitor
Polysubstance abuse:
- Long history of injection drug abuse
- Now doing well with initiation of buprenorphine treatment, currently 16 mg sublingual daily and 4 mg at night
- Plan for rehab after hospital discharge
CODE STATUS: Full code
DVT prophylaxis: SCDs
Diet: Regular diet
Family confusion: Discussed with mother, father, and sister at bedside
Disposition: Rehab for physical therapy and IV antibiotics
Total time spent on today's encounter was 40 minutes
Anticipated Discharge: > 48 hours
Subjective/Interval History
-
Date of Service: December 23, 2024
Patient was seen and examined at bedside this morning. Comfortable. Continuing antibiotics and awaiting placement.
Objective Data
-
Labs:
Laboratory Results
12/23/24
04:14
Hgb 7.5 L
Hct 22.0 L
BUN 11
Creatinine 0.8
Vital Signs:
Vital Signs
Temp Pulse Resp BP Pulse Ox
98.3 F 105 20 170/110 99
12/23/24 07:00 12/23/24 07:00 12/23/24 07:00 12/23/24 07:00 12/23/24 07:00
I&O
12/22/24 12/23/24 12/24/24
06:59 06:59 06:59
Intake Total 1330 / 1330 690 / 690
Output Total 1300 / 1300 1490 / 1490
Balance 30 / 30 -800 / -800
Review of Systems
-
History Source: Patient
All other systems: Reviewed and negative
Physical Exam
-
General: No Apparent Distress
[2024-12-23] MEDS: MELATONIN 10 MG PO (21:44)
[2024-12-23] MEDS: SUBUTEX 4 MG SL (21:44)
[2024-12-23 23:00] VITALS: BP 120/81
[2024-12-23 23:01] LABS: HCV Quant by NAAT IU/mL 2190000 IU/mL; HCV Quant by NAAT Interp Detected (Not Detected); HCV Quant by NAAT Log IU/mL 6.34 log IU/mL
[2024-12-24] MEDS: NAFCIL 108 MG IV ×6 (03:49→23:22)
[2024-12-24 04:25] VITALS: BMI 25.4
[2024-12-24 04:52] LABS: Blood Urea Nitrogen 13 mg/dl (9-20); Calcium 8.0 mg/dl (8.4-10.2); Carbon Dioxide 31 mmol/L (22-30); Chloride 102 mmol/L (98-107); Estimated Creatinine Clearance > 125 ml/min; Glucose 84 mg/dl (70-99); Potassium 4.3 mmol/L (3.5-5.1); Sodium 135 mmol/L (135-145); eGFR > 60.00
[2024-12-24] MEDS: VANCOCIN 150 IV ×2 (06:19→17:12)
[2024-12-24 07:00] VITALS: BP 137/90
[2024-12-24] MEDS: COREG 25 MG PO ×2 (07:41→19:43)
[2024-12-24] MEDS: TYLENOL 1000 MG PO ×3 (07:41→23:21)
[2024-12-24] MEDS: ALDACTONE 25 MG PO (07:41)
[2024-12-24] MEDS: SUBUTEX 16 MG SL (07:41)
[2024-12-24] MEDS: VITAMIN B1 100 MG PO (07:41)
[2024-12-24] MEDS: THERAGRAN 1 TABLET PO (07:41)
[2024-12-24] MEDS: MAGNESIUM OXIDE 500 MG PO (07:41)
[2024-12-24] MEDS: CATAPRES 0.3 MG PO ×4 (07:42→22:10)
[2024-12-24] MEDS: HEPARIN 5000 UNITS SC ×3 (07:42→23:21)
[2024-12-24] MEDS: LASIX 40 MG IV (07:43)
[2024-12-24] MEDS: DESENEX/MITRAZOL/ZEASORB 1 APPLIC TOPICAL ×2 (07:43→19:53)
[2024-12-24] MEDS: LOW STRENGTH ASPIRIN 81 MG PO (07:54)
--- NOTE | 2024-12-24 09:33 | PHA.VAN.FU ---
Vancomycin Assessment / Plan
- Assessment
Renal Function: Stable
WBC's are: WNL
In the past 24 hrs, patient has been: Afebrile
- Dosing Plan
Continue: 750mg Q12H
- Monitoring Plan
No level(s) ordered at this time: Consider level following Wednesday night dose if no placement
- Follow Up
Pharmacy will continue to follow.
Vancomycin Follow UP
- -
Patient Age: 39
Patient Sex: Male
Vancomycin Day #: 22
Indication: Bacteremia
Requesting Provider: Dr. Fofana / Teto
Pertinent Antimicrobial Allergies:
NKDA
Height / Weight:
Height 6 ft 2 in
Actual Weight 89.584 kg
IBW in k.2
Pertinent Past Medical History: IV JOCELIN
- Vital Signs / Lab Results
Temp Pulse Resp BP Pulse Ox
97.8 F 102 22 120/81 97
12/23/24 23:00 12/23/24 23:00 12/23/24 23:00 12/23/24 23:00 12/23/24 23:00
Lab Results - Hematology
12/22/24
04:44
WBC 6.2
Lab Results - Chemistry
12/22/24 12/23/24 12/24/24
04:44 04:14 04:11
BUN 12 11 13
Creatinine 0.8 0.8 0.9
Estimated Creat Clear > 125 > 125 > 125
Microbiology Results
12/17/24 07:12 Blood Culture - Final
Blood/Venous No Growth - Final Report
Therapeutic Drug Monitoring
Vancomycin Peak 22.0 ug/ml (18-26) 12/22/24 20:48
Vancomycin Trough 15.2 ug/ml (5-20) 12/23/24 04:14
Random Vancomycin 13.9 ug/ml 12/21/24 03:53
--- NOTE | 2024-12-24 14:58 | W.PN.HOSP.TC ---
Today's Communication/Plan
-
Assessment / Plan
Assessment / Plan
General: No Apparent Distress, Comfortable and Conversant
HEENT: NormoCephalic, Moist mucous membranes, Atraumatic, poor dentition
Respiratory: Clear and Non Labored Respirations
Cardiac: S1/S2 and Regular Rhythm; No Rub or Gallop
GI: Soft, Non Tender, Non Distended and Normal Bowel Sounds
Musculoskeletal: No Edema, no deformity
: NO Balderas
Neuro: Awake, Alert, Nonfocal/grossly intact
Psych: Calm and Intact Judgment/Insight
Impression:
Patient is a 39-year-old male with a medical history of polysubstance abuse (skin popping with fentanyl) who was admitted after presentation with altered mental status. He was brought in by his parents with tremors and confusion. His mental status
abruptly declined and he was intubated for airway protection. CT brain showed possible left occipital lobe mass. His blood cultures are positive for MRSA. He was initially being managed in the ICU for treatment of encephalopathy and bacteremia.
Patient extubated. Now downgraded to general medical floors.
Assessment/plan:
Septic shock secondary to MRSA/MSSA bacteremia:
- Off vasopressors and downgraded to general medical floors
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
- Afebrile since 12/11, leukocytosis resolved
- Transesophageal echocardiogram 12/06 showed large mitral annulus vegetation
- No current plans for cardiothoracic surgery but will likely eventually require surgery after completing antibiotic course, preop dental x-rays obtained 12/21
- ID following, continue antibiotics with vancomycin and nafcillin, repeat cultures negative since 12/13
- Continue antibiotics with vancomycin and nafcillin through 01/23/2025 (6 weeks from sterile cultures on 12/13)
- PICC line discontinued
- follow-up with cardiothoracic surgery regarding options
Polysubstance abuse:
- Long history of injection drug abuse
- Now doing well with initiation of buprenorphine treatment, currently 16 mg sublingual daily and 4 mg at night
- Will need coordination with [facility] at time of hospital discharge
Anemia requiring transfusion
- Slowly downtrending hemoglobin over the course of his hospitalization, was transfused 1 unit PRBCs for hemoglobin of 7.2 on 12/19
- Transfused a second unit PRBCs 12/21 for hemoglobin 6.9, hemoglobin appropriately improved, remains stable around 7.5
- No evidence of active bleeding, suspect due to ongoing infection and frequent blood draws, will attempt to limit blood draws
- Will monitor
Acute hypoxic respiratory failure.
Ventilation dependent respiratory failure.
12/13
Patient extubated
Acute toxic metabolic encephalopathy:
- EEG with no acute epileptiform activity captured
- Encephalopathy likely multifactorial due to bacteremia, opiate withdrawal, and and suspected septic emboli to brain
- MRI brain consistent with suspicion for septic emboli, repeat CT brain shows stable findings
- Now resolved, patient at baseline mental status, extubated 12/13
Left upper extremity DVT involving brachial vein
Given his multiple scattered acute infarctions with microhemorrhages, patient is high risk for ICH if systemic anticoagulation started
PICC line removed repeat ultrasound shows left brachial vein nonocclusive DVT.
continue subcu heparin.
Hypomagnesemia:
- Resolved, monitor
LE:
- Resolved
Hypokalemia:
- Resolved
- Monitor
Rhabdomyolysis:
- Resolved
Elevated LFTs:
- Suspect due to severe sepsis
- Resolved, monitor with treatment as above
Pancreatitis:
- Resolved
Lactic acidosis:
- Resolved, continue to monitor
CODE STATUS: Full code
DVT prophylaxis: Subcu heparin
Diet: Regular diet
Disposition: Rehab for physical therapy and IV antibiotics
Total time spent on today's encounter was 40 minutes
Anticipated Discharge: > 48 hours
Subjective/Interval History
-
Date of Service: December 24, 2024
Patient was seen and examined at bedside this morning. No acute events overnight. Remains on IV vancomycin for treatment of MRSA endocarditis. Awaiting placement.
Objective Data
-
Labs:
Laboratory Results
12/24/24
04:11
Sodium 135
Potassium 4.3
Chloride 102
Carbon Dioxide 31 H
BUN 13
Creatinine 0.9
Glucose 84
Calcium 8.0 L
Vital Signs:
Vital Signs
Temp Pulse Resp BP Pulse Ox
99.7 F 112 14 137/90 96
12/24/24 07:00 12/24/24 07:00 12/24/24 07:00 12/24/24 07:00 12/24/24 07:00
I&O
12/23/24 12/24/24 12/25/24
06:59 06:59 06:59
Intake Total 690 / 690 474 / 474
Output Total 1490 / 1490 1999 / 1999
Balance -800 / -800 -1526 / -1526
Review of Systems
-
History Source: Patient
All other systems: Reviewed and negative
Physical Exam
-
General: No Apparent Distress
--- NOTE | 2024-12-24 14:59 | W.PN.CARDCBS ---
Today's Communication / Plan
-
Continue IV diuresis and oral spironolactone
Antibiotic per primary service
Monitor renal function electrolytes
Impression / Plan
-
PCP: None prior to admission
Primary Optical Goods Worker: none prior to admission
Impression:
Presentation with change in mental status 12/03/24
Sepsis
Septic emboli by brain MRI
MSSA bacteremia
Pancreatitis
TME
VDRF
LE
Rhabdomyolysis
Elevated LFTs
Thrombocytopenia
Anemia, possibly hemolytic
IVDA since age 19
Vaping
Hypokalemia
Acute HFpEF
LUE DVT
ECHO 12/04/24: EF 55 to 60%, no regional wall motion abnormalities noted, no evidence of vegetation seen
KELI 12/07/24: EF 65%, large endocarditis/vegetations attached to mitral annulus measuring ~1x1cm each, mild MR, no Tricuspid or aortic vegetations
Echo 12/14/24: EF 60-65%, thick echodensity of mitral annulus 1.6x20cm, trace MR
Plan:
-Admitted with confusion and generalized weakness, changes in urine output and back pain. Then developed VDRF in the setting of sepsis, septic shock, TME, brain lesions concerning for embolic disease and rhabdo. KELI with evidence of large
endocarditis/vegetations attached to the mitral annulus.
-Found to have large vegetation attached to the mitral annulus on KELI 12/07/2024. Patient was evaluated by CT surgery and following documented compliance with antibiotics and substance abuse treatment patient will be considered for mitral valve
surgery. If there was any emergent decompensation then more urgent surgical intervention could be considered, but this would be higher risk.
-Appreciate ID input, plan for 6 weeks of IV antibiotics to run through 01/23/25.
-EF preserved at 60 to 65% by echo 12/14/2024.
-Still with peripheral edema on exam which may be related to low oncotic pressure as well as CHF. proBNP remains elevated.
- Continue spironolactone, IV diuresis, lower extremity swelling breathing improving per patient
� Encourage out of bed/PT OT
-Follow renal function and electrolytes as well as daily weights
Progress Note - Optical Goods Worker
Subjective
Date of Service: December 24, 2024
Patient seen and examined this morning. No acute events overnight. Patient resting comfortably in bed. Patient noting improvement in breathing and lower extremity swelling. Patient is 1.5 L negative over the last 24 hours.
Objective
Labs:
12/23/24 04:14
12/24/24 04:11
Labs
Hgb 7.5 g/dL (13.0-18.0) L 12/23/24 04:14
Hct 22.0 % (39.0-52.0) L 12/23/24 04:14
Plt Count 526 10^3/uL (130-400) H 12/22/24 04:44
Sodium 135 mmol/L (135-145) 12/24/24 04:11
Potassium 4.3 mmol/L (3.5-5.1) 12/24/24 04:11
BUN 13 mg/dl (9-20) 12/24/24 04:11
Creatinine 0.9 mg/dL (0.7-1.3) 12/24/24 04:11
Glucose 84 mg/dl (70-99) 12/24/24 04:11
Vital Signs and I&O:
Vital Signs
Temp Pulse Resp BP Pulse Ox
99.7 F 112 14 137/90 96
12/24/24 07:00 12/24/24 07:00 12/24/24 07:00 12/24/24 07:00 12/24/24 07:00
Vital Signs
Temp Pulse Resp BP Pulse Ox
99.7 F 112 14 137/90 96
12/24/24 07:00 12/24/24 07:00 12/24/24 07:00 12/24/24 07:00 12/24/24 07:00
Intake & Output
12/22/24 12/23/24 12/24/24 12/25/24
06:59 06:59 06:59 06:59
Intake Total 1330 / 1330 690 / 690 474 / 474
Output Total 1300 / 1300 1490 / 1490 1999 / 1999
Balance 30 / 30 -800 / -800 -1526 / -1526
Physical Exam
Physical Exam
Gen: NAD, AAOx3
HEENT: NC/AT, sclera anicteric
Neck: No JVD
CV: RRR, NL s1/s2, no M/R/G
Lungs: CTAB
Abd: S/ND
Ext: 1+ peripheral edema
Skin: Warm, dry
Neuro: Non-focal
[2024-12-24 15:00] VITALS: BP 132/89
[2024-12-24] MEDS: MELATONIN 10 MG PO (22:10)
[2024-12-24] MEDS: SUBUTEX 4 MG SL (22:11)
[2024-12-24 23:21] VITALS: BP 146/82
[2024-12-25] VITALS (9 sets, daily range): BP systolic 119–174; BP diastolic 74–103; PULSE 94–104; O2SAT 99; BMI 24.9
[2024-12-25] MEDS: NAFCIL 108 MG IV ×6 (04:07→23:58)
[2024-12-25] MEDS: VANCOCIN 150 IV ×2 (06:09→20:23)
[2024-12-25 07:03] LABS: Hematocrit 20.5 % (39.0-52.0); Hemoglobin 7.1 g/dL (13.0-18.0)
[2024-12-25 07:12] LABS: Blood Urea Nitrogen 11 mg/dl (9-20); Calcium 8.0 mg/dl (8.4-10.2); Carbon Dioxide 32 mmol/L (22-30); Chloride 101 mmol/L (98-107); Estimated Creatinine Clearance > 125 ml/min; Glucose 97 mg/dl (70-99); Potassium 4.1 mmol/L (3.5-5.1); Sodium 135 mmol/L (135-145); eGFR > 60.00
[2024-12-25] MEDS: TYLENOL 1000 MG PO ×3 (07:55→23:57)
[2024-12-25] MEDS: VITAMIN B1 100 MG PO (07:55)
[2024-12-25] MEDS: MAGNESIUM OXIDE 500 MG PO (07:55)
[2024-12-25] MEDS: COREG 25 MG PO ×2 (07:55→20:25)
[2024-12-25] MEDS: SUBUTEX 16 MG SL (07:56)
[2024-12-25] MEDS: LOW STRENGTH ASPIRIN 81 MG PO (07:56)
[2024-12-25] MEDS: ALDACTONE 25 MG PO (07:56)
[2024-12-25] MEDS: LASIX 40 MG IV (07:57)
[2024-12-25] MEDS: THERAGRAN 1 TABLET PO (07:57)
[2024-12-25] MEDS: CATAPRES 0.3 MG PO ×3 (07:57→21:43)
[2024-12-25] MEDS: HEPARIN 5000 UNITS SC ×2 (07:58→15:13)
[2024-12-25] MEDS: DESENEX/MITRAZOL/ZEASORB 1 APPLIC TOPICAL ×2 (07:58→21:43)
--- NOTE | 2024-12-25 08:32 | PHA.VAN.FU ---
Addendum entered and electronically signed by Isela Cox 12/25/24 15:45:
Patient is going for dental procedure this evening, cancelled peak dose. Will evaluate trough in AM as ordered.
Addendum entered and electronically signed by Yumiko Hirsch RPH 12/25/24 10:15:
Agree with assessment and plan below.
Original Note:
Vancomycin Assessment / Plan
- Assessment
Renal Function: Stable
In the past 24 hrs, patient has been: Afebrile
Concomitant Antimicrobials: nafcillin
- Dosing Plan
Continue: 750mg q12h
due to extended half-life over the weekend, will get peak/trough today to assess potential accumulation
- Monitoring Plan
Peak Level: 12/25 2100
Trough Level: 12/26 0530
Monitoring Comments: levels to be drawn after tenth dose of current regimen
- Follow Up
Pharmacy will continue to follow.
Vancomycin Follow UP
- -
Patient Age: 39
Patient Sex: Male
Vancomycin Day #: 23
Indication: Bacteremia
Requesting Provider: Dr. Fofana / Teto
Pertinent Antimicrobial Allergies:
NKDA
Height / Weight:
Height 6 ft 2 in
Actual Weight 88.054 kg
IBW in k.2
Pertinent Past Medical History: IV JOCELIN
- Vital Signs / Lab Results
Temp Pulse Resp BP Pulse Ox
97.6 F 93 18 146/82 97
12/24/24 23:21 12/24/24 23:21 12/24/24 23:21 12/24/24 23:21 12/24/24 23:21
Lab Results - Chemistry
12/23/24 12/24/24 12/25/24
04:14 04:11 06:33
BUN 11 13 11
Creatinine 0.8 0.9 0.8
Estimated Creat Clear > 125 > 125 > 125
Therapeutic Drug Monitoring
Vancomycin Peak 22.0 ug/ml (18-26) 12/22/24 20:48
Vancomycin Trough 15.2 ug/ml (5-20) 12/23/24 04:14
Random Vancomycin 13.9 ug/ml 12/21/24 03:53
--- NOTE | 2024-12-25 08:58 | W.PN.HOSP.TC ---
Today's Communication/Plan
-
CT surgery recommending dental extraction while in the hospital
consider valve replacement during this admission.
Assessment / Plan
Assessment / Plan
Impression:
Patient is a 39-year-old male with a medical history of polysubstance abuse (skin popping with fentanyl) who was admitted after presentation with altered mental status. He was brought in by his parents with tremors and confusion. His mental status
abruptly declined and he was intubated for airway protection. CT brain showed possible left occipital lobe mass. His blood cultures are positive for MRSA. He was initially being managed in the ICU for treatment of encephalopathy and bacteremia.
Patient extubated. Now downgraded to general medical floors.
CT surgery recommending dental extraction while in the hospital and consider valve replacement during this admission.
Assessment/plan:
Septic shock secondary to MRSA/MSSA bacteremia:
- Off vasopressors and downgraded to general medical floors
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
- Afebrile since 12/11, leukocytosis resolved
- Transesophageal echocardiogram 12/06 showed large mitral annulus vegetation
- No current plans for cardiothoracic surgery but will likely eventually require surgery after completing antibiotic course, preop dental x-rays obtained 12/21
- ID following, continue antibiotics with vancomycin and nafcillin, repeat cultures negative since 12/13
- Continue antibiotics with vancomycin and nafcillin through 01/23/2025 (6 weeks from sterile cultures on 12/13)
- PICC line discontinued
- follow-up with cardiothoracic surgery regarding options
12/25
CT surgery recommending dental extraction while in the hospital and consider valve replacement during this admission.
Polysubstance abuse:
- Long history of injection drug abuse
- Now doing well with initiation of buprenorphine treatment, currently 16 mg sublingual daily and 4 mg at night
- Will need coordination with [facility] at time of hospital discharge
Anemia requiring transfusion
- Slowly downtrending hemoglobin over the course of his hospitalization, was transfused 1 unit PRBCs for hemoglobin of 7.2 on 12/19
- Transfused a second unit PRBCs 12/21 for hemoglobin 6.9, hemoglobin appropriately improved, remains stable around 7.5
- No evidence of active bleeding, suspect due to ongoing infection and frequent blood draws, will attempt to limit blood draws
- Will monitor
Acute hypoxic respiratory failure.
Ventilation dependent respiratory failure.
12/13
Patient extubated
Acute toxic metabolic encephalopathy:
- EEG with no acute epileptiform activity captured
- Encephalopathy likely multifactorial due to bacteremia, opiate withdrawal, and and suspected septic emboli to brain
- MRI brain consistent with suspicion for septic emboli, repeat CT brain shows stable findings
- Now resolved, patient at baseline mental status, extubated 12/13
Left upper extremity DVT involving brachial vein
Given his multiple scattered acute infarctions with microhemorrhages, patient is high risk for ICH if systemic anticoagulation started
PICC line removed repeat ultrasound shows left brachial vein nonocclusive DVT.
continue subcu heparin.
Hypomagnesemia:
- Resolved, monitor
LE:
- Resolved
Hypokalemia:
- Resolved
- Monitor
Rhabdomyolysis:
- Resolved
Elevated LFTs:
- Suspect due to severe sepsis
- Resolved, monitor with treatment as above
Pancreatitis:
- Resolved
Lactic acidosis:
- Resolved, continue to monitor
CODE STATUS: Full code
DVT prophylaxis: Subcu heparin
Diet: Regular diet
Disposition:CT surgery recommending dental extraction while in the hospital and consider valve replacement during this admission.
Family communication: Discussed with family at bedside
Total time spent on today's encounter was 65 minutes which included time spent in counseling the patient/family regarding diagnosis and treatment plan as listed above, goals of care, and symptom management. Case was discussed with nursing staff,
specialists, and care coordinators/case management. All labs and imaging personally reviewed by me. Remainder the time spent in detailed review of previous records, lab data, imaging, and other medical provider documentation.
Anticipated Discharge: > 48 hours
Subjective/Interval History
-
Date of Service: December 25, 2024
Patient seen and examined at bedside, overall improving and more awake, later on discussed with parents at bedside.
Objective Data
-
Labs:
Laboratory Results
12/25/24
06:33
Hgb 7.1 L
Hct 20.5 L*
Sodium 135
Potassium 4.1
Chloride 101
Carbon Dioxide 32 H
BUN 11
Creatinine 0.8
Glucose 97
Calcium 8.0 L
Vital Signs:
Vital Signs
Temp Pulse Resp BP Pulse Ox
97.6 F 93 18 146/82 97
12/24/24 23:21 12/24/24 23:21 12/24/24 23:21 12/24/24 23:21 12/24/24 23:21
I&O
12/24/24 12/25/24 12/26/24
06:59 06:59 06:59
Intake Total 474 / 474 474 / 474 480 / 480
Output Total 1999 / 1999 900 / 900 900 / 900
Balance -1526 / -1526 -426 / -426 -420 / -420
Physical Exam
-
General: Appears in Distress
HEENT: Normocephalic and Atraumatic
Respiratory: Rales, Rhonchi and Crackles
Cardiac: Tachycardic
Breast: Deferred by me
GI: Soft, Nontender, Nondistended and Normal Bowel Sounds
Genito-urinary: No Costovertebral Tender
Musculoskeletal: No Clubbing, No Cyanosis and No Edema
Skin: Warm
Neuro: Awake and Alert
Psych: Calm
Data Reviewed
-
Diagnostic Radiology: Image personally visualized and interpreted and Report Reviewed by me
CT Scan: Image personally visualized and interpreted and Report Reviewed by me
Ultrasound: Image personally visualized and interpreted and Report Reviewed by me
MRI: Image personally visualized and interpreted and Report Reviewed by me
Medical Tests (Nuc Med, Echo etc): Image personally visualized and interpreted and Report Reviewed by me
Labs: Labs Reviewed by me
Old Records: Reviewed
--- NOTE | 2024-12-25 09:29 | W.PN.CARDCBS ---
Addendum entered and electronically signed by Laure Starr DO 12/25/24 18:59:
I saw and examined the patient.
The Displayer's note was reviewed and I agree with the note.
Comment: Patient seen and examined with family including his mom and dad at bedside. Patient out of bed to chair and reports that he is stronger when was able to ambulate with a walker to the bathroom. Improved lower extremity edema. No fevers.
No dizziness or chest pain. Denies shortness of breath at current level of activity. His extended hospitalization records reviewed; personally reviewed prior echocardiograms.
General: 39-year-old gentleman out of bed to chair on room air. Appears older than stated age
Heart: Regular, positive S1-S2. 2/6 SM
Lungs: Bronchovesicular breath sounds decreased without wheezes or rhonchi.
Abd: Soft, nontender. Positive bowel sound
Ext: +2 bilateral lower extremity edema to his knees with chronic venous stasis changes. Mild hand swelling
Plan:
39-year-old gentleman with IV drug abuse/polysubstance abuse with complicated Staphylococcus aureus bacteremia (MRSA/MSSA), large mobile mitral valve endocarditis, embolic CVA, left upper extremity PICC associated DVT, failure to thrive with
anasarca/low albumin and new diagnosis of hepatitis C
-Multidisciplinary care reviewed including consults with ID and CT surgery
-Prolonged hospitalization now on day 22 with improved functional status now able to stand and ambulate with assistance to the bathroom.
- Volume status/edema is improving and will continue IV Lasix. Will add Tubigrip stockings.
-Heart rates overall stable�continue carvedilol.
- Afebrile and hemodynamically stable. Last positive blood cultures 12/12/2024.
- Antibiotics managed by ID with plan to continue through 01/23/2025
- Patient finally able to have dental scans finding multiple caries and for dental extraction today with Dr. Lovett. Followed up post procedure; patient had 15 teeth extracted
- Reviewed echocardiograms and plan with CT surgery. Concern for hemolysis with ongoing new anemia. Hemoglobin on admission 15.9, 13.4 on the . Hemoglobin has drifted down from the 11's now currently 7.1 g/dL. Haptoglobin 229 w/ LDH 249 on
12/22. s/p 2 units PRBCs this admission, most recently 12/21. Additional labs requested.
- Would repeat transesophageal echocardiogram later this week�timing to be determined following extensive dental extractions, possibly Wednesday or
-Favor proceeding with mitral valve replacement this admission.
Patient was not in his room when I returned to discuss plan for repeat transesophageal echocardiogram.
Original Note:
Today's Communication / Plan
-
Continue abx per ID
Continue diuresis
Follow hemoglobin and transfuse as needed.
Impression / Plan
-
PCP: None prior to admission
Primary Graphic Art Sales Representative: none prior to admission
Impression:
Presentation with change in mental status 12/03/24
Sepsis
Septic emboli by brain MRI
MSSA bacteremia
Pancreatitis
TME
VDRF
LE
Rhabdomyolysis
Elevated LFTs
Thrombocytopenia
Anemia, possibly hemolytic
IVDA since age 19
Vaping
Hypokalemia
Acute HFpEF
LUE DVT
ECHO 12/04/2024: EF 55 to 60%, no regional wall motion abnormalities noted, no evidence of vegetation seen
KELI 12/07/2024: EF 65%, large endocarditis/vegetations attached to mitral annulus measuring ~1x1cm each, mild MR, no Tricuspid or aortic vegetations
Echo 12/14/2024: EF 60-65%, thick echodensity of mitral annulus 1.6x20 cm, trace MR
Plan:
-Admitted with confusion and generalized weakness, changes in urine output and back pain. Then developed VDRF in the setting of sepsis, septic shock, TME, brain lesions concerning for embolic disease and rhabdo.
-KELI 12/07/2024 with evidence of large endocarditis/vegetations attached to the mitral annulus.
-CT surgery evaluated and plan is for management w/ 6 weeks of IV abx to run through 01/23. Following abx and compliance with substance abuse treatment, would be considered for mitral valve surgery. If emergent decompensation noted, then more urgent
surgical intervention could be considered.
-EF preserved at 60 to 65% by echo 12/14/2024 with only trace MR noted. Could consider repeating echo later this week.
-Anemia noted, w/ hgb down to 7.1 again in AM 12/25. No bleeding noted. Haptoglobin 229 w/ LDH 249 on 12/22. s/p 2 units PRBCs this admission, most recently 12/21.Transfuse as needed.
-Diuresing with IV lasix 40mg daily and spironolactone 25mg daily. Weight down 3lbs overnight, down to 194 lbs,
-Creat stable at 0.8. Continue daily weights, I&Os.
-Continue carvedilol 25mg BID.
-Continue working w/ PT/OT.
Progress Note - Graphic Art Sales Representative
Subjective
Date of Service: December 25, 2024
Continues to improve. No bleeding noted.
Objective
Labs:
12/25/24 06:33
12/25/24 06:33
Labs
Hgb 7.1 g/dL (13.0-18.0) L 12/25/24 06:33
Hct 20.5 % (39.0-52.0) L* 12/25/24 06:33
Plt Count 526 10^3/uL (130-400) H 12/22/24 04:44
Sodium 135 mmol/L (135-145) 12/25/24 06:33
Potassium 4.1 mmol/L (3.5-5.1) 12/25/24 06:33
BUN 11 mg/dl (9-20) 12/25/24 06:33
Creatinine 0.8 mg/dL (0.7-1.3) 12/25/24 06:33
Glucose 97 mg/dl (70-99) 12/25/24 06:33
Vital Signs and I&O:
Vital Signs
Temp Pulse Resp BP Pulse Ox
97.6 F 93 18 146/82 97
12/24/24 23:21 12/24/24 23:21 12/24/24 23:21 12/24/24 23:21 12/24/24 23:21
Vital Signs
Temp Pulse Resp BP Pulse Ox
97.6 F 93 18 146/82 97
12/24/24 23:21 12/24/24 23:21 12/24/24 23:21 12/24/24 23:21 12/24/24 23:21
Intake & Output
12/23/24 12/24/24 12/25/24 12/26/24
06:59 06:59 06:59 06:59
Intake Total 690 / 690 474 / 474 474 / 474 480 / 480
Output Total 1490 / 1490 2000 / 1999 900 / 900 900 / 900
Balance -800 / -800 -1526 / -1526 -426 / -426 -420 / -420
Physical Exam
Physical Exam
Gen: NAD, AAOx3
HEENT: NC/AT, sclera anicteric
CV: RRR, NL s1/s2, no M/R/G
Lungs: CTA b/l
Ext: 1+ peripheral edema
Skin: Warm, dry
Neuro: Non-focal
--- NOTE | 2024-12-25 12:02 | W.PN.ID1 ---
Date of Service
Date of Service: December 25, 2024
Today's Communication
Continue abx's
Assessment / Plan
# Complicated Staphylococcus aureus (MRSA/MSSA) bacteremia
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
# Multiple embolic CVA
# LUE PICC associated DVT, PICC dc'd 12/14
# Fever and leukocytosis resolved
# s/p Intubated 12/03, extubated 12/12/24
# Polysubstance abuse (cocaine and fentanyl 'muscle-ling')
# hx MRSA wound abscesses (2010)
# hx of Viridans strep bacteremia (2010)
# New dx of hepatitis C infection: Hepatitic C Ab positive; HCV RNA 2,190,000
- 12/14 repeat TTE: 1.6 x 2 cm echodensity MV
- 12/12/24 Last positive Blood cx MRSA
- 12/13/24 forward, negtive blood cx's.
- 12/14/24 PICC D/C'ed; tip cx without growth
- HIV screen negative.
- Per CTS, no emergent need for valve surgery at this time.
- There is discrepancy between blood cx PCR (identified as MRSA) and phenotype (identified as MSSA)
Cefoxitin induced test negative. PBP2a negative.
Discussed with S. aureus experts.
Best to treat as both MRSA and MSSA since there are only few publications regarding this particular strain of S. aureus.
-> Continue IV Vancomycin and Nafcillin 2g IV q4h (both crosses blood-brain barrier), 6 weeks of IV antibiotics from negative blood cx, through 01/23/2025
- Monitor renal function and LFT's while on nafcillin.
- Close monitoring of vancomycin levels to prevent nephrotoxicity. Appreciate pharmacists.
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
Chief Complaint
-: Bacteremia and Other (embolic CVA)
Subjective / Review of Systems
Getting a bit stronger.
Vital Signs / Physical Exam
Vital Signs
Vital Signs
Temp Pulse Resp BP Pulse Ox
99.4 F 113 18 143/83 96
12/25/24 07:00 12/25/24 07:00 12/25/24 07:00 12/25/24 07:00 12/25/24 07:00
Physical Exam
Constitutional: No Acute Distress
Eyes: No Conjunctival Hemorrhage and Sclera Anicteric
Oropharyngeal: Poor Dention
Cardiovascular: Regular Rate and S1/S2
Pulmonary: Clear
Gastrointestinal: Soft, Non Tender, Non Distended and Normal Bowel Sounds
Extremities: Edema (decreased)
Neurological: AO x 3
Lines: PICC (RUE)
Objective Data
Lab Data
Lab Results
12/25/24 06:33
12/25/24 06:33
Estimated Creat Clear > 125 ml/min 12/25/24 06:33
Lactic Acid 1.3 mmol/L (0.7-2.0) 12/05/24 16:46
Total Bilirubin 0.9 mg/dl (0.2-1.3) 12/14/24 04:39
AST 24 U/L (17-59) 12/14/24 04:39
ALT 18 U/L (0-50) 12/14/24 04:39
Alkaline Phosphatase 55 U/L (38-126) 12/14/24 04:39
Amylase 139 U/L (30-110) H 12/05/24 04:04
Most recent labs reviewed.
Micro Results:
12/17/24 07:12 Blood Culture - Final
Blood/Venous No Growth - Final Report
12/16/24 03:40 Blood Culture - Final
Blood/Venous No Growth - Final Report
12/15/24 04:33 Blood Culture - Final
Blood/Venous No Growth - Final Report
12/14/24 16:37 Blood Culture - Final
Blood/Venous No Growth - Final Report
12/12/24 03:10 Blood Culture - Final
Blood/Venous Staph aureus MRSA
Gram Stain - Final
12/13/24 04:07 Blood Culture - Final
Blood/Venous No Growth - Final Report
12/14/24 12:53 Catheter Tip Culture - Final
Picc No Growth After 72 Hours
12/09/24 03:54 Blood Culture - Final
Blood/Venous Staph aureus MRSA
Gram Stain - Final
12/08/24 03:02 Blood Culture - Final
Blood/Venous Staph aureus MRSA
Gram Stain - Final
12/11/24 03:33 Blood Culture - Final
Blood/Venous No Growth - Final Report
12/10/24 03:14 Blood Culture - Final
Blood/Venous No Growth - Final Report
12/07/24 04:06 Blood Culture - Final
Blood/Venous Staph aureus MRSA
Gram Stain - Final
12/03/24 08:20 Blood Culture - Final
Blood/Venous Staph aureus MRSA
Gram Stain - Final
12/03/24 09:21 Blood Culture - Final
Blood/Venous Staph aureus MRSA
Gram Stain - Final
12/05/24 16:46 Blood Culture - Final
Blood/Venous Staph aureus MRSA
Gram Stain - Final
12/05/24 13:38 Blood Culture - Final
Blood/Venous Staph aureus MRSA
Gram Stain - Final
12/03/24 08:38 Urine Culture - Final
Urine S aureus-Methicillin Sensitive
12/03/24 18:44 MRSA Screen - Final
Nose No Methicillin Resistant Staphylococcus aureus isolated.
Imaging:
12/05/24 CT a/p: Mild inflammatory change adjacent to the body and tail of the pancreas, suggestive of mild pancreatitis. No peripancreatic fluid collection appreciated. No evidence of intestinal obstruction or bowel inflammatory process. Study is
slightly limited by lack of intravenous or oral contrast. Gallbladder sludge without evidence of acute cholecystitis. No radiopaque gallstones are seen.
12/04/24 MRI brain: Numerous scattered acute infarctions in a distribution that is most suggestive of embolic phenomenon in the setting of known IV drug abuse. Multiple small microhemorrhages are also demonstrated.
12/03/24 CXR: Clear lungs.
12/03/[address]: Possible cortical petechial hemorrhages in the left frontal lobe and left occipital lobe. Possible small old infarct, periventricular small vessel ischemic disease or edema due to underlying mass in the left occipital lobe.
--- NOTE | 2024-12-25 12:29 | W.PN.UPDATE ---
Update Note
Progress Note Update
[facility] reviewed by dental and patient made NPO for dental extractions later today with Dr. Lovett. OR notified of Dr Lovett availability after 6pm esther
--- NOTE | 2024-12-25 12:46 | CM ---
CM reviewed chart, reviewed with Hospitalist. CM reviewed call from [facility], unable to accept. Patient has been declined by 9 acute rehabs. Patient seen bedside with mother and father, discussed no accepting acute rehab facility
at this time. Family requesting referral to [facility] as patients sister works in area- referral in [facility]. Family does not want patient to d/c to SNF. CM will continue to follow for all discharge planning needs.
Plan; additional acute rehab referrals placed, dispo concern regarding IV antibiotics.
[2024-12-25] MEDS: CATAPRES PO (18:00)
--- NOTE | 2024-12-25 18:14 | CON.ORS ---
Consultation - Oral Surgery
Subjective
34 year old male/female with past medical history of valvular heart disease in need of upcoming CT surgery. Consult for dental clearance prior to CT surgery. Patient reports no pain or discomfort from his teeth but admits to not having regular
dental care. Patient denies symptoms of acute infection. No nausea, vomiting, fever or chills.
Past Medical History
Past Medical History: Other (per chart)
Past Surgical History: Other (per chart)
Family History: Not Pertinent
Alcohol: Former
Drug: Former User
Medications / Allergies
Allergies
Allergy/AdvReac Type Severity Reaction Status Date / Time
No Known Drug Allergies Allergy Unknown Verified 12/03/24 11:44
Active Medications
Generic Name Dose Route Start Last Admin
Trade Name Freq PRN Reason Stop Dose Admin
Acetaminophen 650 mg 12/13/24 14:18
Acetaminophen 325 Mg Tablet PO 01/10/25 14:17
Q4HPRN PRN
fever>100.3/mild pain
Acetaminophen 1,000 mg 12/13/24 16:00 12/25/24 15:13
Acetaminophen 500 Mg Tablet PO 01/10/25 15:59 1,000 mg
Q8 JENNIFER Administration
Aspirin 81 mg 12/14/24 08:00 12/25/24 07:56
Aspirin 81 Mg Chewable Tablet PO 01/11/25 07:59 81 mg
DAILY JENNIFER Administration
Buprenorphine 16 mg 12/18/24 08:00 12/25/24 07:56
Buprenorphine 8 Mg Sl Tablet SL 01/01/25 07:59 16 mg
DAILY@0800 JENNIFER Administration
Buprenorphine 2 mg 12/16/24 17:00 12/18/24 20:31
Buprenorphine 2 Mg Sl Tablet SL 12/30/24 16:59 2 mg
Q4HPRN PRN Administration
opioid withdrawal symptoms
Buprenorphine 4 mg 12/21/24 22:00 12/24/24 22:11
Buprenorphine 2 Mg Sl Tablet SL 01/04/25 21:59 4 mg
HS JENNIFER Administration
Carvedilol 25 mg 12/19/24 20:00 12/25/24 07:55
Carvedilol 25 Mg Tablet PO 01/16/25 19:59 25 mg
BID JENNIFER Administration
Clonidine HCl 0.3 mg 12/13/24 18:00 12/25/24 12:10
Clonidine 0.3 Mg Tablet PO 01/10/25 17:59 0.3 mg
QID JENNIFRE Administration
Diazepam 5 mg 12/11/24 16:25
Diazepam 10 Mg/2 Ml Inj IV 01/08/25 16:24
Q6HPRN PRN
AGITATION
Dicyclomine HCl 10 mg 12/13/24 15:26
Dicyclomine 10 Mg Capsule PO 01/10/25 15:25
Q6HPRN PRN
abdominal cramps
Fentanyl Citrate 25 mcg 12/25/24 13:59
Fentanyl (50 Mcg/Ml) 100 Mcg/2 Ml Ampul IV 12/26/24 13:59
[id number] PRN
shivers
Furosemide 40 mg 12/19/24 17:00 12/25/24 07:57
Furosemide 40 Mg (10 Mg/Ml) 4 Ml Vial IV 01/16/25 16:59 40 mg
DAILY JENNIFER Administration
Heparin Sodium 5,000 units 12/13/24 16:00 12/25/24 15:13
Heparin 5,000 Units/Ml 1 Ml Vial SC 01/10/25 15:59 5,000 units
Q8 JENNIFER Administration
Hydralazine HCl 5 mg 12/03/24 16:32 12/14/24 06:04
Hydralazine 20 Mg/Ml Vial IV 12/31/24 16:31 5 mg
Q6HPRN PRN Administration
SBP>160, hold if HR>100
Hydromorphone HCl 1 mg 12/13/24 15:31
Hydromorphone 1 Mg/Ml Carpuject IV 12/26/24 16:18
Q2HPRN PRN
mod-severe pain, COWS >/= 8
Hydromorphone HCl 0.5 mg 12/25/24 13:59
Hydromorphone 0.5 Mg/0.5 Ml Syringe IV 12/26/24 13:59
PACU-Q5MPRN PRN
severe pain
Hydromorphone HCl 0.25 mg 12/25/24 13:59
Hydromorphone 0.25 Mg/0.5 Ml Syringe IV 12/26/24 13:59
PACU-Q5MPRN PRN
moderate pain
Hydroxyzine HCl 50 mg 12/13/24 15:26
Hydroxyzine 25 Mg Tablet PO 01/10/25 15:25
Q6HPRN PRN
refractory anxiety
Nafcillin Sodium 2,000 mg/ 108 mls @ 108 mls/hr 12/06/24 12:00 12/25/24 15:29
Sodium Chloride IV 01/23/25 20:59 108 mls
Q4H JENNIFER Administration
Vancomycin HCl 750 mg in 150 mls @ 150 mls/hr 12/21/24 09:30 12/25/24 06:09
Vancocin IV 01/23/25 18:59 150 mls
Q12@0600,1800 JENNIFER Administration
Protocol
Parenteral Electrolytes 1,000 mls @ 100 mls/hr 12/25/24 14:00
Normosol-R/Plasmalyte-A IV 12/26/24 13:59
PER PROTOCOL JENNIFER
Labetalol HCl 10 mg 12/14/24 10:15
Labetalol Hcl 5 Mg/1 Ml (20 Mg/4 Ml) Injection IV 01/11/25 10:14
Q6HPRN PRN
SBP >160+ HR >100
Loperamide HCl 2 mg 12/13/24 15:26
Loperamide 2 Mg Capsule PO 01/10/25 15:25
Q4HPRN PRN
loose stools
Magnesium Oxide 500 mg 12/19/24 17:00 12/25/24 07:55
Magnesium Oxide 500 Mg Tablet PO 01/16/25 16:59 500 mg
DAILY JENNIFER Administration
Melatonin 10 mg 12/14/24 22:00 12/24/24 22:10
Melatonin 5 Mg Tablet PO 01/11/25 21:59 10 mg
HS JENNIFER Administration
Miconazole Nitrate 0 applic 12/20/24 20:00 12/25/24 07:58
Miconazole Powder Bottle TOPICAL 01/17/25 19:59 1 applic
BID JENNIFER Administration
Multivitamins Therapeutic 1 tablet 12/14/24 08:00 12/25/24 07:57
Multivitamin Tablet PO 01/11/25 07:59 1 tablet
DAILY JENNIFER Administration
Naloxone HCl 0.4 mg 12/13/24 15:26
Naloxone (0.4 Mg/Ml) 1 Ml Injection IV
Q5MPRN PRN
RR </= 8 breaths/min
Ondansetron HCl 4 mg 12/13/24 15:26
Ondansetron 4 Mg/2 Ml Vial IV 01/10/25 15:25
Q6HPRN PRN
nausea
Ondansetron HCl 4 mg 12/25/24 13:59
Ondansetron 4 Mg/2 Ml Vial IV 12/26/24 13:59
PACU-ONCEPRN PRN
nausea/vomiting
Prochlorperazine Edisylate 5 mg 12/25/24 13:59
Prochlorperazine 10 Mg/2 Ml Vial IV 12/26/24 13:59
PACU-ONCEPRN PRN
nausea/vomiting
Sodium Chloride 0 flush 12/03/24 09:00
Sodium Chloride 0.9% (Flush) Syringe IV 12/31/24 08:59
PER PROTOCOL JENNIFER
Spironolactone 25 mg 12/22/24 12:00 12/25/24 07:56
Spironolactone 25 Mg Tablet PO 01/19/25 11:59 25 mg
DAILY JENNIFER Administration
Thiamine HCl 100 mg 12/14/24 08:00 12/25/24 07:55
Thiamine 100 Mg Tablet PO 01/11/25 07:59 100 mg
DAILY JENNIFER Administration
Tizanidine HCl 2 mg 12/13/24 15:25
Tizanidine 2 Mg Tablet PO 01/10/25 15:24
Q6HPRN PRN
restlessness,agitation,anxiety
Review of Systems
Constitutional: Reports No Symptoms
Eyes: Reports No Symptoms
ENT: Reports No Symptoms
Cardiovascular: Reports Other
Respiratory: Reports Shortness of Breath
Gastrointestinal: Reports No Symptoms
Genitourinary: Reports No Symptoms
Musculoskeletal: Reports Other (swelling)
Neurological: Reports No Symptoms and Numbness/Tingling of Feet
Psychological: Reports No Symptoms
Endocrine: Reports No Symptoms
Hematological: Reports No Symptoms
Vital Signs
Temp Pulse Resp BP Pulse Ox
98.0 F 101 16 135/84 100
12/25/24 15:00 12/25/24 15:00 12/25/24 15:00 12/25/24 15:00 12/25/24 15:00
Physical Exam
General: Awake, Alert, Oriented x 3 and Not in Acute Distress
Cardiac: Regular Rate and Regular Rhythm
Respiratory: Clear to Auscultation Bilaterally
Extra-oral Exam: V2 10/10 Bilaterally, V3 10/10 Bilaterally and Temporomandibular Joint Functions Smoothly & Evenly
Intra-oral Exam: Other (Dental caries #1,2,3,7,8,13,14,15,16,17,18,25,28,29,32)
Imaging Results
[employer] reviewed and confirms PE findings of gross decay #1,2,3,7,8,13,14,15,16,17,18,25,28,29,32
Assessment / Plan
39 year old male consulted for dental clearance prior to CT surgery Based on physical and radiographic examination, I have recommended extraction of teeth #1,2,3,7,8,13,14,15,16,17,18,25,28,29,32. We have discussed all risks, benefits,
complications and alternatives including but not limited to bleeding, pain, infection, swelling, oroantral communication, temporary or permanent damage to inferior alveolar nerve resulting in paresthesia, hypoesthesia, anesthesia, dysesthesia, or
loss of taste, fracture of jaw, damage to adjacent teeth or tissues, dislodgement of adjacent crowns or fillings etc. Patient is aware and understands all risks and complications. Consent signed and in chart.
The procedure was accomplished immediately following the consultation and was done without complication. The patient is now clear from a dental standpoint to proceed with CT surgery. He has no restrictions from a dietary standpoint and can advance
as tolerated.
Data Reviewed
Diagnostic Imaging: Image personally visualized and interpreted
--- NOTE | 2024-12-25 18:22 | OR.RPT ---
Operative Report
Operative Report
Pre-op Diagnosis: Dental Caries, impacted teeth, valvular heart disease
Post-op Diagnosis: Same
Procedure: Extraction teeth #1,2,3,7,8,13,14,15,16,17,18,25,28,29,32
Procedure details: The patient was identified in the holding area where he was consented and then transported to the OR and non invasive monitors attached. Anesthesia was then induced and he was intubated orally without complication. He was then
prepped and draped in the standard fashion for tooth removal. A throat pack was placed and the surgical sites were infiltrated with local anesthesia. Teeth #1,2,3,7,8,13,14,15,16,17,18,25,28,29,32 were then extracted surgically without
complications. The socket were curetted, irrigated, packed with gelfoam, and closed with 3-0 Chromic suture. Hemostasis was achieved. At the conclusion of the procedure the throat pack was removed and and an OG tube was passed to suction the
patients stomach. He was then allowed to awaken and was extubated and transported to the PACU for further recovery.
Primary Surgeon: Campos Lovett
Assisting Surgeons: none
Specimen: None
Cultures: None
Complications / Blood Loss: 25 cc
Findings: dental caries
[2024-12-25] MEDS: SUBUTEX 4 MG SL (21:40)
[2024-12-25] MEDS: MELATONIN 10 MG PO (21:41)
[2024-12-25] MEDS: DILAUDID 1 MG IV (21:47)
[2024-12-26] MEDS: HEPARIN 5000 UNITS SC ×4 (00:05→23:46)
[2024-12-26] MEDS: NAFCIL 108 MG IV ×6 (04:17→23:46)
[2024-12-26 06:00] VITALS: BMI 24.9
[2024-12-26] MEDS: VANCOCIN 150 IV ×2 (06:10→17:53)
[2024-12-26 06:24] LABS: INR 1.16; PT 15.1 Sec (11.4-14.6)
[2024-12-26 06:25] LABS: APTT 30.9 Sec (23.4-35.0)
[2024-12-26 06:35] LABS: Hematocrit 22.9 % (39.0-52.0); Hemoglobin 7.7 g/dL (13.0-18.0); Mean Corp Hgb Conc. 33.6 g/dL (33.0-37.0); Mean Corpuscular Volume 88.8 fL (80.0-94.0); Nucleated Red Blood Cells % 0 % (-); Platelet Count 621 10^3/uL (130-400); Red Cell Dist. Width 15.6 % (11.5-14.5)
[2024-12-26 07:13] LABS: ALT (SGPT) 13 U/L (0-50); AST (SGOT) 21 U/L (17-59); Albumin 2.7 g/dl (3.5-5.0); Alkaline Phosphatase 103 U/L (38-126); Blood Urea Nitrogen 10 mg/dl (9-20); Calcium 8.2 mg/dl (8.4-10.2); Carbon Dioxide 30 mmol/L (22-30); Chloride 100 mmol/L (98-107); Estimated Creatinine Clearance > 125 ml/min; Glucose 121 mg/dl (70-99); Potassium 4.3 mmol/L (3.5-5.1); Sodium 136 mmol/L (135-145); Total Protein 6.6 g/dl (6.3-8.2); eGFR > 60.00
[2024-12-26] MEDS: VITAMIN B1 100 MG PO (07:49)
[2024-12-26] MEDS: LOW STRENGTH ASPIRIN 81 MG PO (07:49)
[2024-12-26] MEDS: LASIX 40 MG IV (07:49)
[2024-12-26] MEDS: ALDACTONE 25 MG PO (07:49)
[2024-12-26] MEDS: THERAGRAN 1 TABLET PO (07:50)
[2024-12-26] MEDS: SUBUTEX 16 MG SL (07:50)
[2024-12-26] MEDS: CATAPRES 0.3 MG PO ×4 (07:50→21:40)
[2024-12-26] MEDS: TYLENOL 1000 MG PO ×3 (07:50→23:46)
[2024-12-26] MEDS: MAGNESIUM OXIDE 500 MG PO (07:50)
[2024-12-26] MEDS: COREG 25 MG PO ×2 (07:50→20:13)
[2024-12-26] MEDS: DESENEX/MITRAZOL/ZEASORB 1 APPLIC TOPICAL ×2 (07:52→20:13)
--- NOTE | 2024-12-26 07:56 | PHA.VAN.FU ---
Addendum entered and electronically signed by Yumiko Hirsch Abiel 12/26/24 10:42:
Agree with assessment and plan below.
Original Note:
Vancomycin Assessment / Plan
- Assessment
Renal Function: Stable
WBC's are: WNL
In the past 24 hrs, patient has been: Afebrile
Concomitant Antimicrobials: nafcillin
- Assessment - Therapeutic Drug Monitoring
Random Level: 16.5 - drawn ~9.5H after dose of 750mg
- Dosing Plan
Continue: 750mg q12h
- Monitoring Plan
Peak Level: 12/26 2100
Trough Level: 12/27 529
Monitoring Comments: will evaluate half-life and potential accumulation via peak/trough in AM
- Follow Up
Pharmacy will continue to follow.
Vancomycin Follow UP
- -
Patient Age: 39
Patient Sex: Male
Vancomycin Day #: 24
Indication: Bacteremia
Requesting Provider: Dr. Fofana / Teto
Pertinent Antimicrobial Allergies:
NKDA
Height / Weight:
Height 6 ft 2 in
Actual Weight 88.082 kg
IBW in k.2
Pertinent Past Medical History: IV JOCELIN
- Vital Signs / Lab Results
Temp Pulse Resp BP Pulse Ox
97.9 F 89 18 137/89 97
12/25/24 23:56 12/25/24 23:56 12/25/24 23:56 12/25/24 23:56 12/25/24 23:56
Lab Results - Hematology
12/26/24
06:08
WBC 9.1
Lab Results - Chemistry
12/24/24 12/25/24 12/26/24
04:11 06:33 06:08
BUN 13 11 10
Creatinine 0.9 0.8 0.9
Estimated Creat Clear > 125 > 125 > 125
Albumin 2.7 L
Therapeutic Drug Monitoring
Vancomycin Peak Cancelled 12/25/24 21:00
Vancomycin Peak Cancelled 12/25/24 21:00
Vancomycin Trough 16.5 ug/ml (5-20) 12/26/24 06:08
Random Vancomycin 13.9 ug/ml 12/21/24 03:53
[2024-12-26 07:58] VITALS: BP 138/89
--- NOTE | 2024-12-26 09:17 | CM ---
Chart reviewed and [facility] have denied patient due to severe drug history and need for IV ABX, patient has also been denied at [facility], [facility], [facility] and [facility], [facility] Acute rehab, [facility], [facility], [facility], and acute rehab at [facility].
Plan; Review plan with family and physician.
--- NOTE | 2024-12-26 11:46 | W.PN.HOSP.TC ---
Today's Communication/Plan
-
status post 15 tooth extraction last night,
follow-up CT surgeon recommendation regarding valve replacement.
Assessment / Plan
Assessment / Plan
Impression:
Patient is a 39-year-old male with a medical history of polysubstance abuse (skin popping with fentanyl) who was admitted after presentation with altered mental status. He was brought in by his parents with tremors and confusion. His mental status
abruptly declined and he was intubated for airway protection. CT brain showed possible left occipital lobe mass. His blood cultures are positive for MRSA. He was initially being managed in the ICU for treatment of encephalopathy and bacteremia.
Patient extubated. Now downgraded to general medical floors.
CT surgery recommending dental extraction while in the hospital and consider valve replacement during this admission.
status post 15 tooth extraction 01/04, follow-up CT surgeon recommendation regarding valve replacement.
Assessment/plan:
Septic shock secondary to MRSA/MSSA bacteremia:
- Off vasopressors and downgraded to general medical floors
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
- Afebrile since 12/11, leukocytosis resolved
- Transesophageal echocardiogram 12/06 showed large mitral annulus vegetation
- No current plans for cardiothoracic surgery but will likely eventually require surgery after completing antibiotic course, preop dental x-rays obtained 12/21
- ID following, continue antibiotics with vancomycin and nafcillin, repeat cultures negative since 12/13
- Continue antibiotics with vancomycin and nafcillin through 01/23/2025 (6 weeks from sterile cultures on 12/13)
- PICC line discontinued
- follow-up with cardiothoracic surgery regarding options
12/25
CT surgery recommending dental extraction while in the hospital and consider valve replacement during this admission.
12/26
status post 15 tooth extraction 12/25, follow-up CT surgeon recommendation regarding valve replacement.
Polysubstance abuse:
- Long history of injection drug abuse
- Now doing well with initiation of buprenorphine treatment, currently 16 mg sublingual daily and 4 mg at night
- Will need coordination with [facility] at time of hospital discharge
Anemia requiring transfusion
- Slowly downtrending hemoglobin over the course of his hospitalization, was transfused 1 unit PRBCs for hemoglobin of 7.2 on 12/19
- Transfused a second unit PRBCs 12/21 for hemoglobin 6.9, hemoglobin appropriately improved, remains stable around 7.5
- No evidence of active bleeding, suspect due to ongoing infection and frequent blood draws, will attempt to limit blood draws
- Will monitor
Acute hypoxic respiratory failure.
Ventilation dependent respiratory failure.
12/13
Patient extubated
Acute toxic metabolic encephalopathy:
- EEG with no acute epileptiform activity captured
- Encephalopathy likely multifactorial due to bacteremia, opiate withdrawal, and and suspected septic emboli to brain
- MRI brain consistent with suspicion for septic emboli, repeat CT brain shows stable findings
- Now resolved, patient at baseline mental status, extubated 12/13
Left upper extremity DVT involving brachial vein
Given his multiple scattered acute infarctions with microhemorrhages, patient is high risk for ICH if systemic anticoagulation started
PICC line removed repeat ultrasound shows left brachial vein nonocclusive DVT.
continue subcu heparin.
Hypomagnesemia:
- Resolved, monitor
LE:
- Resolved
Hypokalemia:
- Resolved
- Monitor
Rhabdomyolysis:
- Resolved
Elevated LFTs:
- Suspect due to severe sepsis
- Resolved, monitor with treatment as above
Pancreatitis:
- Resolved
Lactic acidosis:
- Resolved, continue to monitor
CODE STATUS: Full code
DVT prophylaxis: Subcu heparin
Diet: Regular diet
Disposition:s/p dental extraction,
Family communication: Discussed with family at bedside
Total time spent on today's encounter was 65 minutes which included time spent in counseling the patient/family regarding diagnosis and treatment plan as listed above, goals of care, and symptom management. Case was discussed with nursing staff,
specialists, and care coordinators/case management. All labs and imaging personally reviewed by me. Remainder the time spent in detailed review of previous records, lab data, imaging, and other medical provider documentation.
Anticipated Discharge: 24 - 48 hours
Subjective/Interval History
-
Date of Service: December 26, 2024
Patient seen and examined at bedside, status post 15 tooth extraction last night, follow-up CT surgeon recommendation regarding valve replacement.
Objective Data
-
Labs:
Laboratory Results
12/26/24
06:08
WBC 9.1
Hgb 7.7 L
Hct 22.9 L
Plt Count 621 H
PT 15.1 H
INR 1.16
APTT 30.9
Sodium 136
Potassium 4.3
Chloride 100
Carbon Dioxide 30
BUN 10
Creatinine 0.9
Glucose 121 H
Calcium 8.2 L
Total Bilirubin 0.8
AST 21
ALT 13
Alkaline Phosphatase 103
Vital Signs:
Vital Signs
Temp Pulse Resp BP Pulse Ox
99.4 F 116 18 138/89 98
12/26/24 07:58 12/26/24 07:58 12/26/24 07:58 12/26/24 07:58 12/26/24 07:58
I&O
12/25/24 12/26/24 12/27/24
06:59 06:59 06:59
Intake Total 474 / 474 3508 / 3508
Output Total 900 / 900 1999 / 1999
Balance -426 / -426 1508 / 1508
Physical Exam
-
General: Appears in Distress
HEENT: Normocephalic and Atraumatic
Respiratory: Rales, Rhonchi and Crackles
Cardiac: Tachycardic
Breast: Deferred by me
GI: Soft, Nontender, Nondistended and Normal Bowel Sounds
Genito-urinary: No Costovertebral Tender
Musculoskeletal: No Clubbing, No Cyanosis and No Edema
Skin: Warm
Neuro: Awake and Alert
Psych: Calm
Data Reviewed
-
Diagnostic Radiology: Image personally visualized and interpreted and Report Reviewed by me
CT Scan: Image personally visualized and interpreted and Report Reviewed by me
Ultrasound: Image personally visualized and interpreted and Report Reviewed by me
MRI: Image personally visualized and interpreted and Report Reviewed by me
Medical Tests (Nuc Med, Echo etc): Image personally visualized and interpreted and Report Reviewed by me
Labs: Labs Reviewed by me
Old Records: Reviewed
--- NOTE | 2024-12-26 13:54 | W.PN.CARDCBS ---
Addendum entered and electronically signed by Deng Winchester MD 12/26/24 16:59:
I saw and examined the patient.
The BOILER INSPECTOR or PA's note was reviewed and I agree with the note.
Comment: General: Well developed, well nourished in NAD.
Neck: Supple, no JVD, HJR, carotids +2 B/L, no bruits bilaterally.
Heart: Non displaced PMI, RRR, no murmurs, No S3, S4, no rubs.
Lungs: Scattered rhonchi
Extremities: No clubbing, cyanosis or edema bilaterally.
Neuro: Grossly nonfocal, awake, alert and oriented x3.
He has had worsening hemolysis. May be a sign of worsening infection. Discussed with CT surgery who requested KELI to evaluate further. Will arrange on 12/27/2024. Likely CT surgery for valve replacement/repair prior to discharge. Discussed with
patient and mom at bedside
Original Note:
Today's Communication / Plan
-
KELI in AM
Impression / Plan
-
PCP: None prior to admission
Primary Visual Supervisor: none prior to admission
Impression:
Presentation with change in mental status 12/03/24
Sepsis
Septic emboli by brain MRI
MSSA bacteremia
Pancreatitis
TME
VDRF
LE
Rhabdomyolysis
Elevated LFTs
Thrombocytopenia
Anemia, possibly hemolytic
IVDA since age 19
Vaping
Hypokalemia
Acute HFpEF
LUE DVT
Dental extractions, 15 teeth removed as an inpatient on 12/25/2024
ECHO 12/04/2024: EF 55 to 60%, no regional wall motion abnormalities noted, no evidence of vegetation seen
KELI 12/07/2024: EF 65%, large endocarditis/vegetations attached to mitral annulus measuring ~1x1cm each, mild MR, no Tricuspid or aortic vegetations
Echo 12/14/2024: EF 60-65%, thick echodensity of mitral annulus 1.6x20 cm, trace MR
Plan:
-Admitted with confusion and generalized weakness, changes in urine output and back pain. Then developed VDRF in the setting of sepsis, septic shock, TME, brain lesions concerning for embolic disease and rhabdo. KELI with evidence of large
endocarditis/vegetations attached to the mitral annulus. Patient receiving IV antibiotics and awaiting acute care rehab placement.
-Hgb has dropped twice and patient transfused PRBCs 12/19/24 and again 12/21/24
-Haptoglobin elevated at 229 and reticulocyte count elevated at 4.4
-Patient is not on systemic anticoagulation nor OAC. He is ordered heparin 5000 units SQ every 8 hours. There was evidence of LUE DVT and patient is not being treated with OAC due to risk of hemorrhage with septic emboli on MRI of brain earlier
this admission.
-Case reviewed with CT surgery team and plan is for repeat KELI on 12/27/2024.
-Patient had 15 dental extractions on 12/25/2024
- has made referrals to 13 different acute care rehab facilities and patient has been denied by all of them for his history of IV drug abuse and for the need for IV antibiotics.
-ID is recommending 6 weeks of IV antibiotics to run through 01/23/25.
-Weight is stable at 194 lbs by my review of VS on 12/26/2024. Patient ordered Lasix 40 mg IV daily. Patient was not taking a diuretic prior to admission. Continue Lasix 40 mg PO daily upon discharge
-EF preserved at 60 to 65% by echo 12/14/2024.
-New to Coreg 25 mg BID this admission
-New to clonidine 0.3 mg QID this admission
-New to spironolactone 25 mg daily this admission
Progress Note - Visual Supervisor
Subjective
Date of Service: December 26, 2024
No pain
Objective
Labs:
12/26/24 06:08
12/26/24 06:08
Labs
Hgb 7.7 g/dL (13.0-18.0) L 12/26/24 06:08
Hct 22.9 % (39.0-52.0) L 12/26/24 06:08
Plt Count 621 10^3/uL (130-400) H 12/26/24 06:08
PT 15.1 Sec (11.4-14.6) H 12/26/24 06:08
INR 1.16 12/26/24 06:08
APTT 30.9 Sec (23.4-35.0) 12/26/24 06:08
Sodium 136 mmol/L (135-145) 12/26/24 06:08
Potassium 4.3 mmol/L (3.5-5.1) 12/26/24 06:08
BUN 10 mg/dl (9-20) 12/26/24 06:08
Creatinine 0.9 mg/dL (0.7-1.3) 12/26/24 06:08
Glucose 121 mg/dl (70-99) H 12/26/24 06:08
Vital Signs and I&O:
Vital Signs
Temp Pulse Resp BP Pulse Ox
99.4 F 116 18 138/89 98
12/26/24 07:58 12/26/24 07:58 12/26/24 07:58 12/26/24 07:58 12/26/24 07:58
Vital Signs
Temp Pulse Resp BP Pulse Ox
99.4 F 116 18 138/89 98
12/26/24 07:58 12/26/24 07:58 12/26/24 07:58 12/26/24 07:58 12/26/24 07:58
Intake & Output
12/24/24 12/25/24 12/26/24 12/27/24
06:59 06:59 06:59 06:59
Intake Total 474 / 474 474 / 474 3508 / 3508
Output Total 1999 900 / 900 1999
Balance -1526 / -1526 -426 / -426 1508 / 1508
Physical Exam
Physical Exam
GEN: NAD
LUNGS: RA
CV: Sinus tachycardia on tele
[2024-12-26 15:41] VITALS: BP 108/69
[2024-12-26] MEDS: MELATONIN 10 MG PO (21:39)
[2024-12-26] MEDS: SUBUTEX 4 MG SL (21:40)
[2024-12-26 23:43] VITALS: BP 124/74
[2024-12-27] MEDS: NAFCIL 108 MG IV ×6 (03:22→23:57)
[2024-12-27 05:43] LABS: Hematocrit 19.5 % (39.0-52.0); Hemoglobin 6.6 g/dL (13.0-18.0); Mean Corp Hgb Conc. 33.8 g/dL (33.0-37.0); Mean Corpuscular Volume 88.6 fL (80.0-94.0); Platelet Count 522 10^3/uL (130-400); Red Cell Dist. Width 15.7 % (11.5-14.5)
[2024-12-27] MEDS: VANCOCIN 150 IV ×2 (05:44→17:44)
--- NOTE | 2024-12-27 05:49 | PTCARENOTE ---
Critical lab result for Hgb 6.6, Hct 19.5. Provider notified. Awaiting orders.
[2024-12-27 06:00] VITALS: BMI 23.6
--- NOTE | 2024-12-27 06:11 | W.PN.UPDATE ---
Update Note
Progress Note Update
AM labs critical value: Hgb 6.6, Hct 19.5. No bleeding noted, did have 15 teeth extracted yesterday. Spoke with patient regarding labs and need for blood transfusion, reviewed risks and benefits, already consented. Ordered type and screen and 1 unit
PRBC's.
[2024-12-27 06:15] LABS: Blood Urea Nitrogen 9 mg/dl (9-20); Estimated Creatinine Clearance > 125 ml/min
--- NOTE | 2024-12-27 07:23 | PHA.VAN.FU ---
Addendum entered and electronically signed by Yumiko Hirsch Abiel 12/27/24 10:08:
Agree with assessment and plan below
Original Note:
Vancomycin Assessment / Plan
- Assessment
Renal Function: Stable
WBC's are: WNL
In the past 24 hrs, patient has been: Afebrile
Concomitant Antimicrobials: nafcillin
- Assessment - Therapeutic Drug Monitoring
Extrapolated Cmax (mcg/mL): 25.5
Peak level was drawn: Appropriately (drawn ~2H after the END of infusion)
Extrapolated Cmin (mcg/mL): 15.4
Trough Drawn: Appropriately
Levels were drawn: At steady state
Calculated AUC (mcg*h/mL): 481
Calculated ke: 0.0457
Calculated half life (H): 15.2
Calculated Vd (L): 68.25
Calculated Vanc CL (ml/min): 51.95
- Dosing Plan
Adjust Regimen to: 1500 q24h, starting 12/28 599
New Regimen Predicts: AUC (492), Peak (33.0), Trough (11.5)
Dosing Comments: due to prolonged half-life, extending dosing interval
stop vancomycin 750mg q12h after 1800 dose tonight
- Monitoring Plan
No level(s) ordered at this time: consider within next few days
- Follow Up
Pharmacy will continue to follow.
Vancomycin Follow UP
- -
Patient Age: 39
Patient Sex: Male
Vancomycin Day #: 25
Indication: Bacteremia
Requesting Provider: Dr. Fofana / Teto
Pertinent Antimicrobial Allergies:
NKDA
Height / Weight:
Height 6 ft 2 in
Actual Weight 88.082 kg
IBW in k.2
Pertinent Past Medical History: IV JOCELIN
- Vital Signs / Lab Results
Temp Pulse Resp BP Pulse Ox
98.0 F 100 16 124/74 96
12/26/24 23:43 12/26/24 23:43 12/26/24 23:43 12/26/24 23:43 12/26/24 23:43
Lab Results - Hematology
12/26/24 12/27/24
06:08 05:28
WBC 9.1 5.9
Lab Results - Chemistry
12/25/24 12/26/24 12/27/24
06:33 06:08 05:28
BUN 11 10 9
Creatinine 0.8 0.9 0.9
Estimated Creat Clear > 125 > 125 > 125
Albumin 2.7 L
Therapeutic Drug Monitoring
Vancomycin Peak 23.2 ug/ml (18-26) 12/26/24 20:55
Vancomycin Trough 15.7 ug/ml (5-20) 12/27/24 05:28
Random Vancomycin 13.9 ug/ml 12/21/24 03:53
[2024-12-27] MEDS: TYLENOL 1000 MG PO ×3 (07:42→23:57)
[2024-12-27] MEDS: CATAPRES 0.3 MG PO ×4 (07:43→21:42)
[2024-12-27] MEDS: SUBUTEX 16 MG SL (07:44)
[2024-12-27] MEDS: VITAMIN B1 100 MG PO (07:44)
[2024-12-27] MEDS: LOW STRENGTH ASPIRIN 81 MG PO (07:44)
[2024-12-27] MEDS: MAGNESIUM OXIDE 500 MG PO (07:44)
[2024-12-27] MEDS: ALDACTONE 25 MG PO (07:44)
[2024-12-27] MEDS: COREG 25 MG PO ×2 (07:44→20:23)
[2024-12-27] MEDS: THERAGRAN 1 TABLET PO (07:45)
[2024-12-27] MEDS: HEPARIN 5000 UNITS SC ×3 (07:45→23:57)
[2024-12-27] MEDS: LASIX 40 MG IV (07:47)
[2024-12-27] MEDS: DESENEX/MITRAZOL/ZEASORB 1 APPLIC TOPICAL ×2 (07:57→20:22)
[2024-12-27 08:21] VITALS: BP 147/94
[2024-12-27 09:37] VITALS: BP 119/79
[2024-12-27 09:56] VITALS: BP 113/70
--- NOTE | 2024-12-27 11:16 | W.PN.CARDCBS ---
Addendum entered and electronically signed by Deng Winchester MD 12/27/24 16:38:
I saw and examined the patient.
The HISTOPATH TECH or PA's note was reviewed and I agree with the note.
Comment: General: Well developed, well nourished in NAD.
Neck: Supple, no JVD, HJR, carotids +2 B/L, no bruits bilaterally.
Heart: Non displaced PMI, RRR, no murmurs, No S3, S4, no rubs.
Lungs: Scattered rhonchi
Extremities: Moderate lower extremity edema bilaterally.
Neuro: Grossly nonfocal, awake, alert and oriented x3.
KELI was deferred due to anemia. Will check transthoracic echocardiogram. Eventual endocarditis surgery to be determined by CT. Discussed with patient in detail. Appears stable from a cardiovascular standpoint at present. Will check EKG to
exclude conduction abnormalities
Original Note:
Today's Communication / Plan
-
KELI deferred due to recurrent anemia and plans for transfusion
Check transthoracic echo study today
Pending Hgb could attempt KELI on 12/29/2024
Impression / Plan
-
PCP: None prior to admission
Primary Standards Analyst: none prior to admission
Impression:
Presentation with change in mental status 12/03/24
Sepsis
Septic emboli by brain MRI
MSSA bacteremia
Pancreatitis
TME
VDRF
LE
Rhabdomyolysis
Elevated LFTs
Thrombocytopenia
Anemia, possibly hemolytic
IVDA since age 19
Vaping
Hypokalemia
Acute HFpEF
LUE DVT
Dental extractions, 15 teeth removed as an inpatient on 12/25/2024
ECHO 12/04/2024: EF 55 to 60%, no regional wall motion abnormalities noted, no evidence of vegetation seen
KELI 12/07/2024: EF 65%, large endocarditis/vegetations attached to mitral annulus measuring ~1x1cm each, mild MR, no Tricuspid or aortic vegetations
Echo 12/14/2024: EF 60-65%, thick echodensity of mitral annulus 1.6x20 cm, trace MR
Echo 12/27/2024: Study pending
Plan:
-Admitted with confusion and generalized weakness, changes in urine output and back pain. Then developed VDRF in the setting of sepsis, septic shock, TME, brain lesions concerning for embolic disease and rhabdo. KELI with evidence of large
endocarditis/vegetations attached to the mitral annulus. Patient receiving IV antibiotics and awaiting acute care rehab placement.
-Hgb down to 6.6 on labs reviewed by me 12/27/2024. Patient ordered 1 unit PRBCs by hospitalist on 12/27/2024. Patient had a similar drop in Hgb necessitating transfusion on 12/19/24 and again 12/21/24
-Haptoglobin elevated at 229 and reticulocyte count elevated at 4.4
-Patient is not on systemic anticoagulation nor OAC. There was evidence of LUE DVT and patient is not being treated with OAC due to risk of hemorrhage with septic emboli on MRI of brain earlier this admission.
-Case reviewed with CT surgery team and plan was for repeat KELI on 12/27/2024, but KELI now deferred due to recurrent anemia. If Hgb is stable we will plan on KELI 12/29/2024.
-TTE ordered for 12/27/2024, ordered by me.
-Patient had 15 dental extractions on 12/25/2024
- has made referrals to 13 different acute care rehab facilities and patient has been denied by all of them for his history of IV drug abuse and for the need for IV antibiotics.
-ID is recommending 6 weeks of IV antibiotics to run through 01/23/25.
-Weight is stable at 194 lbs by my review of VS on 12/26/2024. Patient ordered Lasix 40 mg IV daily. Patient was not taking a diuretic prior to admission. Continue Lasix 40 mg PO daily upon discharge
-EF preserved at 60 to 65% by echo 12/14/2024.
-New to Coreg 25 mg BID this admission
-New to clonidine 0.3 mg QID this admission
-New to spironolactone 25 mg daily this admission
-I called and updated the patient's mother on 12/27/2024, we talked for 2 minutes 41 seconds.
Progress Note - Standards Analyst
Subjective
Date of Service: December 27, 2024
He feels tired, but no CP
Objective
Labs:
12/27/24 05:28
12/27/24 05:28
Labs
Hgb 6.6 g/dL (13.0-18.0) L* 12/27/24 05:28
Hct 19.5 % (39.0-52.0) L* 12/27/24 05:28
Plt Count 522 10^3/uL (130-400) H 12/27/24 05:28
PT 15.1 Sec (11.4-14.6) H 12/26/24 06:08
INR 1.16 12/26/24 06:08
APTT 30.9 Sec (23.4-35.0) 12/26/24 06:08
Sodium 136 mmol/L (135-145) 12/26/24 06:08
Potassium 4.3 mmol/L (3.5-5.1) 12/26/24 06:08
BUN 9 mg/dl (9-20) 12/27/24 05:28
Creatinine 0.9 mg/dL (0.7-1.3) 12/27/24 05:28
Glucose 121 mg/dl (70-99) H 12/26/24 06:08
Vital Signs and I&O:
Vital Signs
Temp Pulse Resp BP Pulse Ox
98.1 F 95 18 113/70 97
12/27/24 09:56 12/27/24 09:56 12/27/24 09:56 12/27/24 09:56 12/27/24 08:21
Vital Signs
Temp Pulse Resp BP Pulse Ox
98.1 F 95 18 113/70 97
12/27/24 09:56 12/27/24 09:56 12/27/24 09:56 12/27/24 09:56 12/27/24 08:21
Intake & Output
12/25/24 12/26/24 12/27/24 12/28/24
06:59 06:59 06:59 06:59
Intake Total 474 / 474 3508 / 3508 1284 / 1284 0 / 0
Output Total 900 / 900 2000 / 1999 300 / 300 1400 / 1400
Balance -426 / -426 1508 / 1508 984 / 984 -1400 / -1400
Physical Exam
Physical Exam
GEN: NAD
LUNGS: RA
CV: Sinus on telemetry
--- NOTE | 2024-12-27 12:22 | W.PN.HOSP.TC ---
Today's Communication/Plan
-
Blood transfusion.
Repeat echo pending.
Assessment / Plan
Assessment / Plan
Impression:
Patient is a 39-year-old male with a medical history of polysubstance abuse (skin popping with fentanyl) who was admitted after presentation with altered mental status. He was brought in by his parents with tremors and confusion. His mental status
abruptly declined and he was intubated for airway protection. CT brain showed possible left occipital lobe mass. His blood cultures are positive for MRSA. He was initially being managed in the ICU for treatment of encephalopathy and bacteremia.
Patient extubated. Now downgraded to general medical floors.
CT surgery recommending dental extraction while in the hospital and consider valve replacement during this admission.
status post 15 tooth extraction 01/04, follow-up CT surgeon recommendation regarding valve replacement.
Hemoglobin dropped to 6.6, status post 1 unit of blood transfusion.
Repeat echocardiogram pending.
Assessment/plan:
Septic shock secondary to MRSA/MSSA bacteremia:
- Off vasopressors and downgraded to general medical floors
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
- Afebrile since 12/11, leukocytosis resolved
- Transesophageal echocardiogram 12/06 showed large mitral annulus vegetation
- No current plans for cardiothoracic surgery but will likely eventually require surgery after completing antibiotic course, preop dental x-rays obtained 12/21
- ID following, continue antibiotics with vancomycin and nafcillin, repeat cultures negative since 12/13
- Continue antibiotics with vancomycin and nafcillin through 01/23/2025 (6 weeks from sterile cultures on 12/13)
- PICC line discontinued
- follow-up with cardiothoracic surgery regarding options
12/25
CT surgery recommending dental extraction while in the hospital and consider valve replacement during this admission.
12/26
status post 15 tooth extraction 12/25, follow-up CT surgeon recommendation regarding valve replacement.
12/27
Repeat echocardiogram pending
Polysubstance abuse:
- Long history of injection drug abuse
- Now doing well with initiation of buprenorphine treatment, currently 16 mg sublingual daily and 4 mg at night
- Will need coordination with [facility] at time of hospital discharge
Anemia requiring transfusion
- Slowly downtrending hemoglobin over the course of his hospitalization, was transfused 1 unit PRBCs for hemoglobin of 7.2 on 12/19
- Transfused a second unit PRBCs 12/21 for hemoglobin 6.9, hemoglobin appropriately improved, remains stable around 7.5
- No evidence of active bleeding, suspect due to ongoing infection and frequent blood draws, will attempt to limit blood draws
- Will monitor
12/27
Hemoglobin dropped to 6.6, proceed with 1 unit of blood transfusion.
Acute hypoxic respiratory failure.
Ventilation dependent respiratory failure.
12/13
Patient extubated
Acute toxic metabolic encephalopathy:
- EEG with no acute epileptiform activity captured
- Encephalopathy likely multifactorial due to bacteremia, opiate withdrawal, and and suspected septic emboli to brain
- MRI brain consistent with suspicion for septic emboli, repeat CT brain shows stable findings
- Now resolved, patient at baseline mental status, extubated 12/13
Left upper extremity DVT involving brachial vein
Given his multiple scattered acute infarctions with microhemorrhages, patient is high risk for ICH if systemic anticoagulation started
PICC line removed repeat ultrasound shows left brachial vein nonocclusive DVT.
continue subcu heparin.
Hypomagnesemia:
- Resolved, monitor
LE:
- Resolved
Hypokalemia:
- Resolved
- Monitor
Rhabdomyolysis:
- Resolved
Elevated LFTs:
- Suspect due to severe sepsis
- Resolved, monitor with treatment as above
Pancreatitis:
- Resolved
Lactic acidosis:
- Resolved, continue to monitor
CODE STATUS: Full code
DVT prophylaxis: Subcu heparin
Diet: Regular diet
Disposition:s/p dental extraction,
Family communication: Discussed with family at bedside
Total time spent on today's encounter was 65 minutes which included time spent in counseling the patient/family regarding diagnosis and treatment plan as listed above, goals of care, and symptom management. Case was discussed with nursing staff,
specialists, and care coordinators/case management. All labs and imaging personally reviewed by me. Remainder the time spent in detailed review of previous records, lab data, imaging, and other medical provider documentation.
Anticipated Discharge: > 48 hours
Subjective/Interval History
-
Date of Service: December 27, 2024
Patient seen and examined at bedside, hemoglobin dropped to 6.6, transfused 1 unit
Objective Data
-
Labs:
Laboratory Results
12/27/24
05:28
WBC 5.9
Hgb 6.6 L*
Hct 19.5 L*
Plt Count 522 H
BUN 9
Creatinine 0.9
Vital Signs:
Vital Signs
Temp Pulse Resp BP Pulse Ox
98.1 F 95 18 113/70 97
12/27/24 09:56 12/27/24 09:56 12/27/24 09:56 12/27/24 09:56 12/27/24 08:21
I&O
12/26/24 12/27/24 12/28/24
06:59 06:59 06:59
Intake Total 3508 / 3508 1284 / 1284 0 / 0
Output Total 2000 / 2000 300 / 300 1400 / 1400
Balance 1508 / 1508 984 / 984 -1400 / -1400
Physical Exam
-
General: Well Developed and Other (P[place])
HEENT: Normocephalic and Atraumatic
Respiratory: Rales, Rhonchi and Crackles
Cardiac: Tachycardic
Breast: Deferred by me
GI: Soft, Nontender, Nondistended and Normal Bowel Sounds
Genito-urinary: No Costovertebral Tender
Musculoskeletal: No Clubbing, No Cyanosis and No Edema
Skin: Warm
Neuro: Awake and Alert
Psych: Calm
Data Reviewed
-
Diagnostic Radiology: Image personally visualized and interpreted and Report Reviewed by me
CT Scan: Image personally visualized and interpreted and Report Reviewed by me
Ultrasound: Image personally visualized and interpreted and Report Reviewed by me
MRI: Image personally visualized and interpreted and Report Reviewed by me
Medical Tests (Nuc Med, Echo etc): Image personally visualized and interpreted and Report Reviewed by me
Labs: Labs Reviewed by me
Old Records: Reviewed
[2024-12-27 13:11] VITALS: BP 146/97
--- NOTE | 2024-12-27 15:24 | W.PN.ID1 ---
Date of Service
Date of Service: December 27, 2024
Today's Communication
Continue abx's.
Assessment / Plan
# Complicated Staphylococcus aureus (MRSA/MSSA) bacteremia
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
# Multiple embolic CVA
#New dx of hepatitis C infection: Hepatitic C Ab positive; HCV RNA 2,190,000
# LUE PICC associated DVT, PICC dc'd 12/14
# Fever and leukocytosis resolved
# s/p Intubated 12/03, extubated 12/12/24
# Polysubstance abuse (cocaine and fentanyl 'muscle-ling')
# hx MRSA wound abscesses (2010)
# hx of Viridans strep bacteremia (2010)
# New dx of hepatitis C infection: Hepatitic C Ab positive; HCV RNA 2,190,000
- 12/14 repeat TTE: 1.6 x 2 cm echodensity MV
- 12/12/24 Last positive Blood cx MRSA
- 12/13/24 forward, negtive blood cx's.
- 12/14/24 PICC D/C'ed; tip cx without growth
- HIV screen negative.
- Hepatitic C Ab positive; HCV RNA 2,190,000
- Persistent anemia requring pRBC trabsfusion
For TTE, then eventual KELI per cardiology
- 8/4 s/p 15 tooth extractions
-CTS following
- There is discrepancy between blood cx PCR (identified as MRSA) and phenotype (identified as MSSA)
Cefoxitin induced test negative. PBP2a negative.
Discussed with S. aureus experts.
Best to treat as both MRSA and MSSA since there are only few publications regarding this particular strain of S. aureus.
-> Continue IV Vancomycin and Nafcillin 2g IV q4h (both crosses blood-brain barrier), 6 weeks of IV antibiotics from negative blood cx, through 01/23/2025
- Monitor renal function and LFT's while on nafcillin.
- Close monitoring of vancomycin levels to prevent nephrotoxicity. Appreciate pharmacists.
- Eventual referral to security team lead for HCV treatment.
Chief Complaint
-: Bacteremia and Other (embolic CVA)
Subjective / Review of Systems
Feels well.
Vital Signs / Physical Exam
Vital Signs
Vital Signs
Temp Pulse Resp BP Pulse Ox
97.7 F 85 16 146/97 99
12/27/24 13:11 12/27/24 13:11 12/27/24 13:11 12/27/24 13:24 12/27/24 13:11
Physical Exam
Constitutional: No Acute Distress
Eyes: No Conjunctival Hemorrhage and Sclera Anicteric
Pulmonary: Clear
Gastrointestinal: Soft, Non Tender and Non Distended
Extremities: Edema (decreasing BLE, LUE)
Neurological: AO x 3
Lines: PICC (RUE)
Objective Data
Lab Data
Lab Results
12/27/24 05:28
12/27/24 05:28
PT 15.1 Sec (11.4-14.6) H 12/26/24 06:08
INR 1.16 12/26/24 06:08
APTT 30.9 Sec (23.4-35.0) 12/26/24 06:08
Estimated Creat Clear > 125 ml/min 12/27/24 05:28
Lactic Acid 1.3 mmol/L (0.7-2.0) 12/05/24 16:46
Total Bilirubin 0.8 mg/dl (0.2-1.3) 12/26/24 06:08
AST 21 U/L (17-59) 12/26/24 06:08
ALT 13 U/L (0-50) 12/26/24 06:08
Alkaline Phosphatase 103 U/L (38-126) 12/26/24 06:08
Amylase 139 U/L (30-110) H 12/05/24 04:04
Most recent labs reviewed.
Micro Results:
12/17/24 07:12 Blood Culture - Final
Blood/Venous No Growth - Final Report
12/16/24 03:40 Blood Culture - Final
Blood/Venous No Growth - Final Report
12/15/24 04:33 Blood Culture - Final
Blood/Venous No Growth - Final Report
12/14/24 16:37 Blood Culture - Final
Blood/Venous No Growth - Final Report
12/12/24 03:10 Blood Culture - Final
Blood/Venous Staph aureus MRSA
Gram Stain - Final
12/13/24 04:07 Blood Culture - Final
Blood/Venous No Growth - Final Report
12/14/24 12:53 Catheter Tip Culture - Final
Picc No Growth After 72 Hours
12/09/24 03:54 Blood Culture - Final
Blood/Venous Staph aureus MRSA
Gram Stain - Final
12/08/24 03:02 Blood Culture - Final
Blood/Venous Staph aureus MRSA
Gram Stain - Final
12/11/24 03:33 Blood Culture - Final
Blood/Venous No Growth - Final Report
12/10/24 03:14 Blood Culture - Final
Blood/Venous No Growth - Final Report
12/07/24 04:06 Blood Culture - Final
Blood/Venous Staph aureus MRSA
Gram Stain - Final
12/03/24 08:20 Blood Culture - Final
Blood/Venous Staph aureus MRSA
Gram Stain - Final
12/03/24 09:21 Blood Culture - Final
Blood/Venous Staph aureus MRSA
Gram Stain - Final
12/05/24 16:46 Blood Culture - Final
Blood/Venous Staph aureus MRSA
Gram Stain - Final
12/05/24 13:38 Blood Culture - Final
Blood/Venous Staph aureus MRSA
Gram Stain - Final
12/03/24 08:38 Urine Culture - Final
Urine S aureus-Methicillin Sensitive
12/03/24 18:44 MRSA Screen - Final
Nose No Methicillin Resistant Staphylococcus aureus isolated.
Imaging:
12/05/24 CT a/p: Mild inflammatory change adjacent to the body and tail of the pancreas, suggestive of mild pancreatitis. No peripancreatic fluid collection appreciated. No evidence of intestinal obstruction or bowel inflammatory process. Study is
slightly limited by lack of intravenous or oral contrast. Gallbladder sludge without evidence of acute cholecystitis. No radiopaque gallstones are seen.
12/04/24 MRI brain: Numerous scattered acute infarctions in a distribution that is most suggestive of embolic phenomenon in the setting of known IV drug abuse. Multiple small microhemorrhages are also demonstrated.
12/03/24 CXR: Clear lungs.
12/03/[address]: Possible cortical petechial hemorrhages in the left frontal lobe and left occipital lobe. Possible small old infarct, periventricular small vessel ischemic disease or edema due to underlying mass in the left occipital lobe.
[2024-12-27 16:17] VITALS: BP 135/85
[2024-12-27] MEDS: MELATONIN 10 MG PO (21:41)
[2024-12-27] MEDS: SUBUTEX 4 MG SL (21:43)
[2024-12-27 23:18] VITALS: BP 129/84
[2024-12-28] VITALS (8 sets, daily range): BP systolic 137–160; BP diastolic 91–110; PULSE 90–95; O2SAT 98; BMI 24.9
[2024-12-28] MEDS: NAFCIL 108 MG IV ×6 (04:02→23:59)
[2024-12-28 04:34] LABS: Hematocrit 20.1 % (39.0-52.0); Hemoglobin 6.7 g/dL (13.0-18.0); Mean Corp Hgb Conc. 33.3 g/dL (33.0-37.0); Mean Corpuscular Volume 88.9 fL (80.0-94.0); Platelet Count 500 10^3/uL (130-400); Red Cell Dist. Width 15.2 % (11.5-14.5)
--- NOTE | 2024-12-28 04:34 | PTCARENOTE ---
Addendum entered by Chica Alfaro RN 12/28/24 05:55:
x 1 unit PRBC ordered. H & H to be checked 2 hours post transfusion.
Original Note:
Critical lab values: Hgb 6.7, Hct 20.1. Provider notified. Awaiting orders
--- NOTE | 2024-12-28 04:39 | W.PN.UPDATE ---
Update Note
Progress Note Update
AM labs, critical value received. Hgb 6.7/Hct 20.1. Ordered 1 unit PRBC's to be transfused now. Repeat H&H ordered for 2 hours after completion of blood transfusion.
[2024-12-28] MEDS: VANCOCIN 530 MG IV (06:09)
[2024-12-28] MEDS: HEPARIN 5000 UNITS SC ×2 (07:36→17:06)
[2024-12-28] MEDS: MAGNESIUM OXIDE 500 MG PO (07:38)
[2024-12-28] MEDS: TYLENOL 1000 MG PO ×2 (07:38→17:06)
[2024-12-28] MEDS: LOW STRENGTH ASPIRIN 81 MG PO (07:38)
[2024-12-28] MEDS: SUBUTEX 16 MG SL (07:39)
[2024-12-28] MEDS: THERAGRAN 1 TABLET PO (07:39)
[2024-12-28] MEDS: VITAMIN B1 100 MG PO (07:39)
[2024-12-28] MEDS: CATAPRES 0.3 MG PO ×4 (07:40→22:04)
[2024-12-28] MEDS: ALDACTONE 25 MG PO (07:40)
[2024-12-28] MEDS: COREG 25 MG PO ×2 (07:40→20:21)
[2024-12-28] MEDS: LASIX 40 MG IV (07:41)
[2024-12-28] MEDS: DESENEX/MITRAZOL/ZEASORB 1 APPLIC TOPICAL ×2 (07:42→20:30)
--- NOTE | 2024-12-28 08:08 | PHA.VAN.FU ---
Addendum entered and electronically signed by Yumiko Hirsch [facility] 12/28/24 11:22:
Agree with assessment and plan
Original Note:
Vancomycin Assessment / Plan
- Assessment
Renal Function: Stable
WBC's are: WNL
In the past 24 hrs, patient has been: Afebrile
Concomitant Antimicrobials: nafcillin
- Dosing Plan
Continue: 1500mg q24h
- Monitoring Plan
No level(s) ordered at this time: consider within next few days
- Follow Up
Pharmacy will continue to follow.
Vancomycin Follow UP
- -
Patient Age: 39
Patient Sex: Male
Vancomycin Day #: 26
Indication: Bacteremia
Requesting Provider: Dr. Fofana / Teto
Pertinent Antimicrobial Allergies:
NKDA
Height / Weight:
Height 6 ft 2 in
Actual Weight 87.77 kg
IBW in k.2
Pertinent Past Medical History: IV JOCELIN
- Vital Signs / Lab Results
Temp Pulse Resp BP Pulse Ox
98.6 F 103 18 157/97 96
12/28/24 07:54 12/28/24 07:54 12/28/24 07:54 12/28/24 07:54 12/28/24 05:30
Lab Results - Hematology
12/26/24 12/27/24 12/28/24
06:08 05:28 04:05
WBC 9.1 5.9 5.5
Lab Results - Chemistry
12/26/24 12/27/24
06:08 05:28
BUN 10 9
Creatinine 0.9 0.9
Estimated Creat Clear > 125 > 125
Albumin 2.7 L
Therapeutic Drug Monitoring
Vancomycin Peak 23.2 ug/ml (18-26) 12/26/24 20:55
Vancomycin Trough 15.7 ug/ml (5-20) 12/27/24 05:28
Random Vancomycin 13.9 ug/ml 12/21/24 03:53
[2024-12-28 10:29] LABS: Hematocrit 25.2 % (39.0-52.0); Hemoglobin 8.5 g/dL (13.0-18.0)
--- NOTE | 2024-12-28 11:56 | W.PN.HOSP.TC ---
Today's Communication/Plan
-
Follow with CT surgery recommendations.
Assessment / Plan
Assessment / Plan
Impression:
Patient is a 39-year-old male with a medical history of polysubstance abuse (skin popping with fentanyl) who was admitted after presentation with altered mental status. He was brought in by his parents with tremors and confusion. His mental status
abruptly declined and he was intubated for airway protection. CT brain showed possible left occipital lobe mass. His blood cultures are positive for MRSA. He was initially being managed in the ICU for treatment of encephalopathy and bacteremia.
Patient extubated. Now downgraded to general medical floors.
CT surgery recommending dental extraction while in the hospital and consider valve replacement during this admission.
status post 15 tooth extraction 01/04, follow-up CT surgeon recommendation regarding valve replacement.
Hemoglobin dropped again status post 2 more units of blood transfusion.
Repeat echocardiogram shows
1. Normal left ventricular size, wall thickness and systolic function. No regional wall motion abnormalities are seen.
2. Ejection fraction is 60-65% by visual assesment.
3. Trace mitral valve regurgitation. Mobile echodensity consistent with known endocarditis seen near the mitral valve posterior leaflet annulus.
4. Moderate circumferential pericardial effusion without evidence of tamponade physiology.
5. Compared to a prior echo from December 14 2024, which was reviewed, there is now a moderate pericardial effusion, findings are otherwise similar.
6. Fair image quality.
Assessment/plan:
Septic shock secondary to MRSA/MSSA bacteremia:
- Off vasopressors and downgraded to general medical floors
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
- Afebrile since 12/11, leukocytosis resolved
- Transesophageal echocardiogram 12/06 showed large mitral annulus vegetation
- No current plans for cardiothoracic surgery but will likely eventually require surgery after completing antibiotic course, preop dental x-rays obtained 12/21
- ID following, continue antibiotics with vancomycin and nafcillin, repeat cultures negative since 12/13
- Continue antibiotics with vancomycin and nafcillin through 01/23/2025 (6 weeks from sterile cultures on 12/13)
- PICC line discontinued
- follow-up with cardiothoracic surgery regarding options
12/25
CT surgery recommending dental extraction while in the hospital and consider valve replacement during this admission.
12/26
status post 15 tooth extraction 12/25, follow-up CT surgeon recommendation regarding valve replacement.
12/27
Repeat echocardiogram
1. Normal left ventricular size, wall thickness and systolic function. No regional wall motion abnormalities are seen.
2. Ejection fraction is 60-65% by visual assesment.
3. Trace mitral valve regurgitation. Mobile echodensity consistent with known endocarditis seen near the mitral valve posterior leaflet annulus.
4. Moderate circumferential pericardial effusion without evidence of tamponade physiology.
5. Compared to a prior echo from December 14 2024, which was reviewed, there is now a moderate pericardial effusion, findings are otherwise similar.
6. Fair image quality.
Polysubstance abuse:
- Long history of injection drug abuse
- Now doing well with initiation of buprenorphine treatment, currently 16 mg sublingual daily and 4 mg at night
- Will need coordination with [facility] at time of hospital discharge
Anemia requiring transfusion
- Slowly downtrending hemoglobin over the course of his hospitalization, was transfused 1 unit PRBCs for hemoglobin of 7.2 on 12/19
- Transfused a second unit PRBCs 12/21 for hemoglobin 6.9, hemoglobin appropriately improved, remains stable around 7.5
- No evidence of active bleeding, suspect due to ongoing infection and frequent blood draws, will attempt to limit blood draws
- Will monitor
12/27
Hemoglobin dropped to 6.6, proceed with 1 unit of blood transfusion.
Acute hypoxic respiratory failure.
Ventilation dependent respiratory failure.
12/13
Patient extubated
Acute toxic metabolic encephalopathy:
- EEG with no acute epileptiform activity captured
- Encephalopathy likely multifactorial due to bacteremia, opiate withdrawal, and and suspected septic emboli to brain
- MRI brain consistent with suspicion for septic emboli, repeat CT brain shows stable findings
- Now resolved, patient at baseline mental status, extubated 12/13
Left upper extremity DVT involving brachial vein
Given his multiple scattered acute infarctions with microhemorrhages, patient is high risk for ICH if systemic anticoagulation started
PICC line removed repeat ultrasound shows left brachial vein nonocclusive DVT.
continue subcu heparin.
Hypomagnesemia:
- Resolved, monitor
LE:
- Resolved
Hypokalemia:
- Resolved
- Monitor
Rhabdomyolysis:
- Resolved
Elevated LFTs:
- Suspect due to severe sepsis
- Resolved, monitor with treatment as above
Pancreatitis:
- Resolved
Lactic acidosis:
- Resolved, continue to monitor
CODE STATUS: Full code
DVT prophylaxis: Subcu heparin
Diet: Regular diet
Disposition:Follow with CT surgery recommendations.
Family communication: Discussed with family at bedside
Total time spent on today's encounter was 65 minutes which included time spent in counseling the patient/family regarding diagnosis and treatment plan as listed above, goals of care, and symptom management. Case was discussed with nursing staff,
specialists, and care coordinators/case management. All labs and imaging personally reviewed by me. Remainder the time spent in detailed review of previous records, lab data, imaging, and other medical provider documentation.
Anticipated Discharge: > 48 hours
Subjective/Interval History
-
Date of Service: December 28, 2024
Patient seen and examined at bedside, denies any chest pain or shortness of breath, no abdominal pain, no nausea, no vomiting, no diarrhea or constipation.
Hb dropped in the morning but improved after 1 unit of blood transfusion.
Objective Data
-
Labs:
Laboratory Results
12/28/24 12/28/24
04:05 09:59
WBC 5.5
Hgb 6.7 L* 8.5 L D
Hct 20.1 L* 25.2 L
Plt Count 500 H
Vital Signs:
Vital Signs
Temp Pulse Resp BP Pulse Ox
97.9 F 103 16 157/97 97
12/28/24 08:38 12/28/24 08:38 12/28/24 08:38 12/28/24 08:38 12/28/24 08:38
I&O
12/27/24 12/28/24 12/29/24
06:59 06:59 06:59
Intake Total 1284 / 1284 490 / 490 250 / 250
Output Total 300 / 300 2000 / 2000 1600 / 1600
Balance 984 / 984 -1510 / -1510 -1350 / -1350
Physical Exam
-
General: Well Developed and Other (Pallor)
HEENT: Normocephalic and Atraumatic
Respiratory: Rales, Rhonchi and Crackles
Cardiac: Tachycardic
Breast: Deferred by me
GI: Soft, Nontender, Nondistended and Normal Bowel Sounds
Genito-urinary: No Costovertebral Tender
Musculoskeletal: No Clubbing, No Cyanosis and No Edema
Skin: Warm
Neuro: Awake and Alert
Psych: Calm
Data Reviewed
-
Diagnostic Radiology: Image personally visualized and interpreted and Report Reviewed by me
CT Scan: Image personally visualized and interpreted and Report Reviewed by me
Ultrasound: Image personally visualized and interpreted and Report Reviewed by me
MRI: Image personally visualized and interpreted and Report Reviewed by me
Medical Tests (Nuc Med, Echo etc): Image personally visualized and interpreted and Report Reviewed by me
Labs: Labs Reviewed by me
Old Records: Reviewed
--- NOTE | 2024-12-28 13:02 | W.PN.CARDCBS ---
Addendum entered and electronically signed by Chilo Ignacio DO 12/28/24 17:05:
I saw and examined the patient.
The Performance Improvement Specialist's note was reviewed and I agree with the note.
Comment:
Plan:
Recent echo reviewed with similar findings.
KELI tomorrow to reeval echo findings of endocarditis
Cont IV abx
Cont IV lasix diuresis
CT surgery to reeval.
Discussed with nursing and with family at bedside
Original Note:
Today's Communication / Plan
-
Continue IV abx for endocarditis
Continue IV lasix
KELI in AM. NPO after midnight
Impression / Plan
-
PCP: None prior to admission
Primary Phonograph Mechanic: none prior to admission
Impression:
Presentation with change in mental status 12/03/24
Sepsis
Septic emboli by brain MRI
MSSA bacteremia
Pancreatitis
TME
VDRF
LE
Rhabdomyolysis
Elevated LFTs
Thrombocytopenia
Anemia, possibly hemolytic
IVDA since age 19
Vaping
Hypokalemia
Acute HFpEF
LUE DVT
Dental extractions, 15 teeth removed as an inpatient on 12/25/2024
ECHO 12/04/2024: EF 55 to 60%, no regional wall motion abnormalities noted, no evidence of vegetation seen
KELI 12/07/2024: EF 65%, large endocarditis/vegetations attached to mitral annulus measuring ~1x1cm each, mild MR, no Tricuspid or aortic vegetations
Echo 12/14/2024: EF 60-65%, thick echodensity of mitral annulus 1.6x20 cm, trace MR
Echo 12/27/2024: EF 60-65%, trace MR, mobile echodensity consistent with known endocarditis seen near the mitral valve posterior leaflet annulus, moderate circumferential pericardial effusion without evidence of tamponade physiology
Plan:
-Admitted with confusion and generalized weakness, changes in urine output and back pain. Then developed VDRF in the setting of sepsis, septic shock, TME, brain lesions concerning for embolic disease and rhabdo. KELI with evidence of large
endocarditis/vegetations attached to the mitral annulus. Continues on IV antibiotics per ID recommendations.
-CT surgery following. Plan is for tentative repeat KELI 12/29 as long as hemoglobin stable.
-He has had intermittent drops in hgb necessitating transfusion throughout admission. Has received 4 units PRBCs this admission, most recently today, 8.7.
-Follow up hgb this afternoon improved at 8.5. Repeat in AM prior to KELI.
-Not on OAC due to risk of hemorrhage with septic emboli on MRI of brain earlier in admission despite LUE DVT.
-NPO after midnight.
-He is s/p 15 dental extractions 12/25.
-Continue IV lasix 40mg daily. Creat stable at 0.9. Weight down 1 lb to 193 lbs.
-BP stable on coreg, clonidine, and spironolactone. New this admission.
-Timing of CT surgery TBD.
Progress Note - Phonograph Mechanic
Subjective
Date of Service: December 28, 2024
No chest pain.
Objective
Labs:
12/28/24 09:59
12/27/24 05:28
Labs
Hgb 8.5 g/dL (13.0-18.0) L D 12/28/24 09:59
Hct 25.2 % (39.0-52.0) L 12/28/24 09:59
Plt Count 500 10^3/uL (130-400) H 12/28/24 04:05
PT 15.1 Sec (11.4-14.6) H 12/26/24 06:08
INR 1.16 12/26/24 06:08
APTT 30.9 Sec (23.4-35.0) 12/26/24 06:08
Sodium 136 mmol/L (135-145) 12/26/24 06:08
Potassium 4.3 mmol/L (3.5-5.1) 12/26/24 06:08
BUN 9 mg/dl (9-20) 12/27/24 05:28
Creatinine 0.9 mg/dL (0.7-1.3) 12/27/24 05:28
Glucose 121 mg/dl (70-99) H 12/26/24 06:08
Vital Signs and I&O:
Vital Signs
Temp Pulse Resp BP Pulse Ox
97.9 F 103 16 157/97 97
12/28/24 08:38 12/28/24 08:38 12/28/24 08:38 12/28/24 12:30 12/28/24 08:38
Vital Signs
Temp Pulse Resp BP Pulse Ox
97.9 F 103 16 157/97 97
12/28/24 08:38 12/28/24 08:38 12/28/24 08:38 12/28/24 12:30 12/28/24 08:38
Intake & Output
12/26/24 12/27/24 12/28/24 12/29/24
06:59 06:59 06:59 06:59
Intake Total 3508 / 3508 1284 / 1284 490 / 490 250 / 250
Output Total 1999 / 1999 300 / 300 2000 / 1999 1600 / 1600
Balance 1508 / 1508 984 / 984 -1510 / -1510 -1350 / -1350
Physical Exam
Physical Exam
GEN: NAD
LUNGS: RA
CV: Sinus on telemetry
--- NOTE | 2024-12-28 14:03 | CM ---
CM reviewed chart, plan for KELI tomorrow 12/29/24. Remains on IV antibiotics. Patient continues to be denied by multiple acute rehabs. CM will continue to follow for all discharge planning needs.
Plan; will continue to review with Hospitalist/ Family
[2024-12-28] MEDS: MELATONIN 10 MG PO (22:04)
[2024-12-28] MEDS: SUBUTEX 4 MG SL (22:04)
[2024-12-29] MEDS: TYLENOL 1000 MG PO ×4 (00:04→23:15)
[2024-12-29] MEDS: HEPARIN 5000 UNITS SC ×4 (00:04→23:15)
[2024-12-29] MEDS: NAFCIL 108 MG IV ×6 (04:09→23:16)
[2024-12-29 05:25] LABS: Hematocrit 24.3 % (39.0-52.0); Hemoglobin 8.1 g/dL (13.0-18.0); Mean Corp Hgb Conc. 33.3 g/dL (33.0-37.0); Mean Corpuscular Volume 88.4 fL (80.0-94.0); Platelet Count 551 10^3/uL (130-400); Red Cell Dist. Width 15.4 % (11.5-14.5)
[2024-12-29] MEDS: VANCOCIN 530 MG IV (05:49)
[2024-12-29 06:00] VITALS: BMI 25.2
[2024-12-29 07:00] VITALS: BP 155/105
--- NOTE | 2024-12-29 08:17 | PHA.VAN.FU ---
Addendum entered and electronically signed by Yumiko Hirsch Abiel 12/29/24 08:27:
Agree with assessment and plan
Original Note:
Vancomycin Assessment / Plan
- Assessment
Renal Function: Stable
WBC's are: WNL
In the past 24 hrs, patient has been: Afebrile
Concomitant Antimicrobials: nafcillin
- Dosing Plan
Continue: 1500mg q24h
- Monitoring Plan
No level(s) ordered at this time: consider levels this weekend to assess PK with new regimen
- Follow Up
Pharmacy will continue to follow.
Vancomycin Follow UP
- -
Patient Age: 39
Patient Sex: Male
Vancomycin Day #: 27
Indication: Bacteremia
Requesting Provider: Dr. Fofana / Teto
Pertinent Antimicrobial Allergies:
NKDA
Height / Weight:
Height 6 ft 2 in
Actual Weight 88.904 kg
IBW in k.2
Pertinent Past Medical History: IV JOCELIN
- Vital Signs / Lab Results
Temp Pulse Resp BP Pulse Ox
97.8 F 95 16 152/94 97
12/28/24 23:11 12/28/24 23:11 12/28/24 23:11 12/28/24 23:11 12/28/24 23:11
Lab Results - Hematology
12/27/24 12/28/24 12/29/24
05:28 04:05 05:07
WBC 5.9 5.5 5.5
Lab Results - Chemistry
12/27/24
05:28
BUN 9
Creatinine 0.9
Estimated Creat Clear > 125
Therapeutic Drug Monitoring
Vancomycin Peak 23.2 ug/ml (18-26) 12/26/24 20:55
Vancomycin Trough 15.7 ug/ml (5-20) 12/27/24 05:28
Random Vancomycin 13.9 ug/ml 12/21/24 03:53
[2024-12-29] MEDS: MAGNESIUM OXIDE 500 MG PO (08:54)
[2024-12-29] MEDS: ALDACTONE 25 MG PO (08:54)
[2024-12-29] MEDS: LASIX 40 MG IV (08:55)
[2024-12-29] MEDS: CATAPRES 0.3 MG PO ×4 (08:55→21:25)
[2024-12-29] MEDS: VITAMIN B1 100 MG PO (08:55)
[2024-12-29] MEDS: THERAGRAN 1 TABLET PO (08:55)
[2024-12-29] MEDS: LOW STRENGTH ASPIRIN 81 MG PO (08:55)
[2024-12-29] MEDS: COREG 25 MG PO ×2 (08:56→19:19)
[2024-12-29] MEDS: SUBUTEX 16 MG SL (08:56)
[2024-12-29] MEDS: DESENEX/MITRAZOL/ZEASORB 1 APPLIC TOPICAL ×2 (08:59→19:17)
--- NOTE | 2024-12-29 09:13 | W.PN.CARDCBS ---
Addendum entered and electronically signed by Franky Bridges MD 12/29/24 18:42:
I saw and examined the patient.
The Private Pilot's note was reviewed and I agree with the note.
Comment:
GEN: No distress, awake, Ox3
HEENT: supple, anicteric, mmm
LUNGS: CTA, no wheezes/rales
CV: Reg, S1/S2, 1/6 syst LSB, no gallop
ABD: soft, BS+, NT/ND
EXT: No edema
NEURO: Gross non-focal
SKIN: No rash
PLan:
KELI today with continued vegetation on mitral valve annulus and posterior leaflet. The size of the vegetation is smaller but the mitral regurgitation is now moderate and has worsened.
His ejection fraction remains preserved although he now has a moderate-sized pericardial effusion. The etiology of this remains unclear. I had a lengthy discussion with the patient and his family and Dr. Gonzalez of CT surgery.
Our plan for now will be continue medical therapy for his MSSA endocarditis. His surgical options would include a mitral mechanical valve (not an ideal option with his history of IV drug use because of requirement for Coumadin), a bioprosthetic
mitral valve (not another great option due to likely need for second operation in 6 to 10 years), or attempted mitral valve repair for endocarditis.
We will continue to treat him conservatively for now. Continue IV antibiotics. We need infectious disease to discuss length of time of IV antibiotics and possible need for suppressive p.o. antibiotics with his known MSSA endocarditis. Fortunately
he has no fevers and cultures have cleared. If he decompensates we will be forced to proceed with surgery.
He also has a new pericardial effusion of unclear etiology. Plan will be for pericardiocentesis early next week.
He remains anemic. The etiology is remains unclear. While hemolysis is a possibility his LDH and haptoglobin levels are not overly impressive. Continue supportive care for likely some level of anemia of chronic disease in the setting of
endocarditis. Could consider hematology evaluation. Follow hemoglobin.
Continue carvedilol and spironolactone. Would continue IV Lasix for now. Check repeat proBNP in AM.
I again had a discussion with him about the importance of avoiding significant substance abuse. He states he is fully on board with not using any further IV drugs.
Original Note:
Today's Communication / Plan
-
Check BMP
Follow hgb. stable this AM
Continue abx per ID
KELI this AM
Consider increasing anti-HTN regimen pending BMP results
Impression / Plan
-
PCP: None prior to admission
Primary Senior Application Software Engineer: none prior to admission
Impression:
Presentation with change in mental status 12/03/24
Sepsis
Septic emboli by brain MRI
MSSA bacteremia
Pancreatitis
TME
VDRF
LE
Rhabdomyolysis
Elevated LFTs
Thrombocytopenia
Anemia, possibly hemolytic
IVDA since age 19
Vaping
Hypokalemia
Acute HFpEF
LUE DVT
Dental extractions, 15 teeth removed as an inpatient on 12/25/2024
ECHO 12/04/2024: EF 55 to 60%, no regional wall motion abnormalities noted, no evidence of vegetation seen
KELI 12/07/2024: EF 65%, large endocarditis/vegetations attached to mitral annulus measuring ~1x1cm each, mild MR, no Tricuspid or aortic vegetations
Echo 12/14/2024: EF 60-65%, thick echodensity of mitral annulus 1.6x20 cm, trace MR
Echo 12/27/2024: EF 60-65%, trace MR, mobile echodensity consistent with known endocarditis seen near the mitral valve posterior leaflet annulus, moderate circumferential pericardial effusion without evidence of tamponade physiology
Plan:
-Admitted with confusion and generalized weakness, changes in urine output and back pain. Then developed VDRF in the setting of sepsis, septic shock, TME, brain lesions concerning for embolic disease and rhabdo.
-KELI 12/07/2024 noted evidence of large endocarditis/vegetations attached to the mitral annulus. Continues on IV antibiotics per ID recommendations.
-For repeat KELI 12/29 given concern for hemolysis and w/ plan for possible inpatient valve surgery. Await results.
-Hgb has been intermittently dropping throughout admission requiring transfusions. s/p 4 units PRBCs this admission, most recently 12/28. Hgb stable at 8.1 in AM 12/29.
-Not on OAC due to risk of hemorrhage with septic emboli on MRI of brain earlier in admission despite LUE DVT.
-He is s/p 15 dental extractions 12/25.
-Continue IV lasix 40mg daily. AM labs pending. Weight reportedly up 3lbs overnight, but negative on I&Os. Continue to follow.
-New to Coreg 25mg BID, spironolactone 25mg daliy, and clonidine 0.3mg daily this admission. BP has been elevated. Will likely need adjustment in regimen, but await AM labs.
Progress Note - Senior Application Software Engineer
Subjective
Date of Service: December 29, 2024
Objective
Labs:
12/29/24 05:07
12/27/24 05:28
Labs
Hgb 8.1 g/dL (13.0-18.0) L 12/29/24 05:07
Hct 24.3 % (39.0-52.0) L 12/29/24 05:07
Plt Count 551 10^3/uL (130-400) H 12/29/24 05:07
PT 15.1 Sec (11.4-14.6) H 12/26/24 06:08
INR 1.16 12/26/24 06:08
APTT 30.9 Sec (23.4-35.0) 12/26/24 06:08
Sodium 136 mmol/L (135-145) 12/26/24 06:08
Potassium 4.3 mmol/L (3.5-5.1) 12/26/24 06:08
BUN 9 mg/dl (9-20) 12/27/24 05:28
Creatinine 0.9 mg/dL (0.7-1.3) 12/27/24 05:28
Glucose 121 mg/dl (70-99) H 12/26/24 06:08
Vital Signs and I&O:
Vital Signs
Temp Pulse Resp BP Pulse Ox
98 F 100 16 155/105 97
12/29/24 07:00 12/29/24 07:00 12/29/24 07:00 12/29/24 08:54 12/29/24 07:00
Vital Signs
Temp Pulse Resp BP Pulse Ox
98 F 100 16 155/105 97
12/29/24 07:00 12/29/24 07:00 12/29/24 07:00 12/29/24 08:54 12/29/24 07:00
Intake & Output
12/27/24 12/28/24 12/29/24 12/30/24
06:59 06:59 06:59 06:59
Intake Total 1284 / 1284 490 / 490 1554 / 1554
Output Total 300 / 300 2000 / 2000 2500 / 2500
Balance 984 / 984 -1510 / -1510 -946 / -946
Physical Exam
Physical Exam
GEN: NAD
LUNGS: RA
CV: Reg
--- NOTE | 2024-12-29 10:50 | W.PN.HOSP.TC ---
Today's Communication/Plan
-
KELI today,
Follow with CT surgery recommendations based on KELI result.
Assessment / Plan
Assessment / Plan
Impression:
Patient is a 39-year-old male with a medical history of polysubstance abuse (skin popping with fentanyl) who was admitted after presentation with altered mental status. He was brought in by his parents with tremors and confusion. His mental status
abruptly declined and he was intubated for airway protection. CT brain showed possible left occipital lobe mass. His blood cultures are positive for MRSA. He was initially being managed in the ICU for treatment of encephalopathy and bacteremia.
Patient extubated. Now downgraded to general medical floors.
CT surgery recommending dental extraction while in the hospital and consider valve replacement during this admission.
status post 15 tooth extraction 01/04, follow-up CT surgeon recommendation regarding valve replacement.
Hemoglobin dropped again status post 2 more units of blood transfusion.
Repeat echocardiogram shows
1. Normal left ventricular size, wall thickness and systolic function. No regional wall motion abnormalities are seen.
2. Ejection fraction is 60-65% by visual assesment.
3. Trace mitral valve regurgitation. Mobile echodensity consistent with known endocarditis seen near the mitral valve posterior leaflet annulus.
4. Moderate circumferential pericardial effusion without evidence of tamponade physiology.
5. Compared to a prior echo from December 14 2024, which was reviewed, there is now a moderate pericardial effusion, findings are otherwise similar.
6. Fair image quality.
12/29 KELI
Assessment/plan:
Septic shock secondary to MRSA/MSSA bacteremia:
- Off vasopressors and downgraded to general medical floors
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
- Afebrile since 12/11, leukocytosis resolved
- Transesophageal echocardiogram 12/06 showed large mitral annulus vegetation
- No current plans for cardiothoracic surgery but will likely eventually require surgery after completing antibiotic course, preop dental x-rays obtained 12/21
- ID following, continue antibiotics with vancomycin and nafcillin, repeat cultures negative since 12/13
- Continue antibiotics with vancomycin and nafcillin through 01/23/2025 (6 weeks from sterile cultures on 12/13)
- PICC line discontinued
- follow-up with cardiothoracic surgery regarding options
12/25
CT surgery recommending dental extraction while in the hospital and consider valve replacement during this admission.
12/26
status post 15 tooth extraction 12/25, follow-up CT surgeon recommendation regarding valve replacement.
12/27
Repeat echocardiogram
1. Normal left ventricular size, wall thickness and systolic function. No regional wall motion abnormalities are seen.
2. Ejection fraction is 60-65% by visual assesment.
3. Trace mitral valve regurgitation. Mobile echodensity consistent with known endocarditis seen near the mitral valve posterior leaflet annulus.
4. Moderate circumferential pericardial effusion without evidence of tamponade physiology.
5. Compared to a prior echo from December 14 2024, which was reviewed, there is now a moderate pericardial effusion, findings are otherwise similar.
6. Fair image quality.
12/29
For KELI today
Polysubstance abuse:
- Long history of injection drug abuse
- Now doing well with initiation of buprenorphine treatment, currently 16 mg sublingual daily and 4 mg at night
- Will need coordination with [facility] at time of hospital discharge
Anemia requiring transfusion
- Slowly downtrending hemoglobin over the course of his hospitalization, was transfused 1 unit PRBCs for hemoglobin of 7.2 on 12/19
- Transfused a second unit PRBCs 12/21 for hemoglobin 6.9, hemoglobin appropriately improved, remains stable around 7.5
- No evidence of active bleeding, suspect due to ongoing infection and frequent blood draws, will attempt to limit blood draws
- Will monitor
on 12/27,12/28 Hemoglobin dropped , s/p aditiona 2 unit of blood transfusion.
12/29
Hemoglobin stable
Acute hypoxic respiratory failure.
Ventilation dependent respiratory failure.
12/13
Patient extubated
Acute toxic metabolic encephalopathy:
- EEG with no acute epileptiform activity captured
- Encephalopathy likely multifactorial due to bacteremia, opiate withdrawal, and and suspected septic emboli to brain
- MRI brain consistent with suspicion for septic emboli, repeat CT brain shows stable findings
- Now resolved, patient at baseline mental status, extubated 12/13
Left upper extremity DVT involving brachial vein
Given his multiple scattered acute infarctions with microhemorrhages, patient is high risk for ICH if systemic anticoagulation started
PICC line removed repeat ultrasound shows left brachial vein nonocclusive DVT.
continue subcu heparin.
Hypomagnesemia:
- Resolved, monitor
LE:
- Resolved
Hypokalemia:
- Resolved
- Monitor
Rhabdomyolysis:
- Resolved
Elevated LFTs:
- Suspect due to severe sepsis
- Resolved, monitor with treatment as above
Pancreatitis:
- Resolved
Lactic acidosis:
- Resolved, continue to monitor
CODE STATUS: Full code
DVT prophylaxis: Subcu heparin
Diet: Regular diet
Disposition: KELI today, Follow with CT surgery recommendations based on KELI result.
Family communication: Discussed with family at bedside
Total time spent on today's encounter was 65 minutes which included time spent in counseling the patient/family regarding diagnosis and treatment plan as listed above, goals of care, and symptom management. Case was discussed with nursing staff,
specialists, and care coordinators/case management. All labs and imaging personally reviewed by me. Remainder the time spent in detailed review of previous records, lab data, imaging, and other medical provider documentation.
Anticipated Discharge: > 48 hours
Subjective/Interval History
-
Date of Service: December 29, 2024
Patient seen and examined at bedside, denies any chest pain or shortness of breath, no abdominal pain, no nausea, no vomiting, no diarrhea or constipation.
Hemoglobin improved, for KELI today.
Objective Data
-
Labs:
Laboratory Results
12/29/24 12/29/24
05:07 09:14
WBC 5.5
Hgb 8.1 L
Hct 24.3 L
Plt Count 551 H
Sodium Pending
Potassium Pending
Chloride Pending
Carbon Dioxide Pending
BUN Pending
Creatinine Pending
Glucose Pending
Calcium Pending
Vital Signs:
Vital Signs
Temp Pulse Resp BP Pulse Ox
98 F 100 16 155/105 97
12/29/24 07:00 12/29/24 07:00 12/29/24 07:00 12/29/24 08:54 12/29/24 07:00
I&O
12/28/24 12/29/24 12/30/24
06:59 06:59 06:59
Intake Total 490 / 490 1554 / 1554
Output Total 1999 / 1999 2500 / 2500 1300 / 1300
Balance -1510 / -1510 -946 / -946 -1300 / -1300
Physical Exam
-
General: Well Developed and Other (Pallor)
HEENT: Normocephalic and Atraumatic
Respiratory: Rales, Rhonchi and Crackles
Cardiac: Tachycardic
Breast: Deferred by me
GI: Soft, Nontender, Nondistended and Normal Bowel Sounds
Genito-urinary: No Costovertebral Tender
Musculoskeletal: No Clubbing, No Cyanosis and No Edema
Skin: Warm
Neuro: Awake and Alert
Psych: Calm
[2024-12-29 11:14] LABS: Blood Urea Nitrogen 8 mg/dl (9-20); Calcium 8.2 mg/dl (8.4-10.2); Carbon Dioxide 31 mmol/L (22-30); Chloride 102 mmol/L (98-107); Estimated Creatinine Clearance > 125 ml/min; Glucose 97 mg/dl (70-99); Potassium 4.0 mmol/L (3.5-5.1); Sodium 136 mmol/L (135-145); eGFR > 60.00
--- NOTE | 2024-12-29 12:49 | CM ---
CM reviewed chart, plan for KELI today, will follow with CT surgery recommendations based on results. CM will continue disposition efforts based on medical plan.
Plan; will continue to review with Hospitalist/family, dispo planning TBD
[2024-12-29 13:28] VITALS: BP 160/87
[2024-12-29 14:22] VITALS: BP 147/98; PULSE 92; O2SAT 99
[2024-12-29 15:00] VITALS: BP 112/74
--- NOTE | 2024-12-29 15:23 | W.PN.ID1 ---
Date of Service
Date of Service: December 29, 2024
Today's Communication
Continue Nafcillin/Vancomycin.
Assessment / Plan
# Complicated Staphylococcus aureus (MRSA/MSSA) bacteremia
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
# Multiple embolic CVA
#New dx of hepatitis C infection: Hepatitic C Ab positive; HCV RNA 2,190,000
# LUE PICC associated DVT, PICC dc'd 12/14
# Fever and leukocytosis resolved
# s/p Intubated 12/03, extubated 12/12/24
# Polysubstance abuse (cocaine and fentanyl 'muscle-ling')
# hx MRSA wound abscesses (2010)
# hx of Viridans strep bacteremia (2010)
# New dx of hepatitis C infection: Hepatitic C Ab positive; HCV RNA 2,190,000
- 12/14 repeat TTE: 1.6 x 2 cm echodensity MV
- 12/12/24 Last positive Blood cx MRSA
- 12/13/24 forward, negtive blood cx's.
- 12/14/24 PICC D/C'ed; tip cx without growth
- HIV screen negative.
- Hepatitic C Ab positive; HCV RNA 2,190,000
- Persistent anemia requring pRBC trabsfusion
For TTE, then eventual KELI per cardiology
- 12/25 s/p 15 tooth extractions
-12/29 Repeat KELI; report pending
- There is discrepancy between blood cx PCR (identified as MRSA) and phenotype (identified as MSSA)
Cefoxitin induced test negative. PBP2a negative.
Discussed with S. aureus experts.
Best to treat as both MRSA and MSSA since there are only few publications regarding this particular strain of S. aureus.
-> Continue IV Vancomycin and Nafcillin 2g IV q4h (both crosses blood-brain barrier), 6 weeks of IV antibiotics from negative blood cx, through 01/23/2025
- Monitor renal function and LFT's while on nafcillin.
- Close monitoring of vancomycin levels to prevent nephrotoxicity. Appreciate pharmacists.
- Eventual referral to fundraising coordinator for HCV treatment.
Chief Complaint
-: Bacteremia and Other (embolic CVA)
Subjective / Review of Systems
Returned from KELI. Feels well.
Vital Signs / Physical Exam
Vital Signs
Vital Signs
Temp Pulse Resp BP Pulse Ox
97.9 F 86 16 160/87 98
12/29/24 13:28 12/29/24 13:28 12/29/24 13:28 12/29/24 13:28 12/29/24 13:28
Physical Exam
Constitutional: No Acute Distress and Comfortable
Eyes: No Conjunctival Hemorrhage and Sclera Anicteric
Cardiovascular: Regular Rate and S1/S2
Pulmonary: Clear
Gastrointestinal: Soft, Non Tender, Non Distended and Normal Bowel Sounds
Extremities: Edema (decreasind BLE)
Neurological: AO x 3
Lines: PICC (RUE no erythema)
Objective Data
Lab Data
Lab Results
12/29/24 05:07
12/29/24 10:50
PT 15.1 Sec (11.4-14.6) H 12/26/24 06:08
INR 1.16 12/26/24 06:08
APTT 30.9 Sec (23.4-35.0) 12/26/24 06:08
Estimated Creat Clear > 125 ml/min 12/29/24 10:50
Lactic Acid 1.3 mmol/L (0.7-2.0) 12/05/24 16:46
Total Bilirubin 0.8 mg/dl (0.2-1.3) 12/26/24 06:08
AST 21 U/L (17-59) 12/26/24 06:08
ALT 13 U/L (0-50) 12/26/24 06:08
Alkaline Phosphatase 103 U/L (38-126) 12/26/24 06:08
Amylase 139 U/L (30-110) H 12/05/24 04:04
Most recent labs reviewed.
Micro Results:
12/17/24 07:12 Blood Culture - Final
Blood/Venous No Growth - Final Report
12/16/24 03:40 Blood Culture - Final
Blood/Venous No Growth - Final Report
12/15/24 04:33 Blood Culture - Final
Blood/Venous No Growth - Final Report
12/14/24 16:37 Blood Culture - Final
Blood/Venous No Growth - Final Report
12/12/24 03:10 Blood Culture - Final
Blood/Venous Staph aureus MRSA
Gram Stain - Final
12/13/24 04:07 Blood Culture - Final
Blood/Venous No Growth - Final Report
12/14/24 12:53 Catheter Tip Culture - Final
Picc No Growth After 72 Hours
12/09/24 03:54 Blood Culture - Final
Blood/Venous Staph aureus MRSA
Gram Stain - Final
12/08/24 03:02 Blood Culture - Final
Blood/Venous Staph aureus MRSA
Gram Stain - Final
12/11/24 03:33 Blood Culture - Final
Blood/Venous No Growth - Final Report
12/10/24 03:14 Blood Culture - Final
Blood/Venous No Growth - Final Report
12/07/24 04:06 Blood Culture - Final
Blood/Venous Staph aureus MRSA
Gram Stain - Final
12/03/24 08:20 Blood Culture - Final
Blood/Venous Staph aureus MRSA
Gram Stain - Final
12/03/24 09:21 Blood Culture - Final
Blood/Venous Staph aureus MRSA
Gram Stain - Final
12/05/24 16:46 Blood Culture - Final
Blood/Venous Staph aureus MRSA
Gram Stain - Final
12/05/24 13:38 Blood Culture - Final
Blood/Venous Staph aureus MRSA
Gram Stain - Final
12/03/24 08:38 Urine Culture - Final
Urine S aureus-Methicillin Sensitive
12/03/24 18:44 MRSA Screen - Final
Nose No Methicillin Resistant Staphylococcus aureus isolated.
Imaging:
12/05/24 CT a/p: Mild inflammatory change adjacent to the body and tail of the pancreas, suggestive of mild pancreatitis. No peripancreatic fluid collection appreciated. No evidence of intestinal obstruction or bowel inflammatory process. Study is
slightly limited by lack of intravenous or oral contrast. Gallbladder sludge without evidence of acute cholecystitis. No radiopaque gallstones are seen.
12/04/24 MRI brain: Numerous scattered acute infarctions in a distribution that is most suggestive of embolic phenomenon in the setting of known IV drug abuse. Multiple small microhemorrhages are also demonstrated.
12/03/24 CXR: Clear lungs.
12/03/[address]: Possible cortical petechial hemorrhages in the left frontal lobe and left occipital lobe. Possible small old infarct, periventricular small vessel ischemic disease or edema due to underlying mass in the left occipital lobe.
[2024-12-29 21:25] VITALS: BP 124/86
[2024-12-29] MEDS: MELATONIN 10 MG PO (21:25)
[2024-12-29] MEDS: SUBUTEX 4 MG SL (21:26)
[2024-12-30] MEDS: NAFCIL 108 MG IV ×5 (03:14→21:34)
--- NOTE | 2024-12-30 05:42 | W.PN.UPDATE ---
Update Note
Progress Note Update
KELI performed on 12/29/24 reveals EF 65%, AV with no significant AI. MV with a moderate partially mobile echodensity attached to the annulus and the posterior leaflet of P1/P2. Eccentric jet of moderate MR. No MS. TV with trace regurgitation, and a PV
with trace regurgitation. Moderate sized pericardial effusion, circumferential with no clear evidence of tamponade physilogy.
When compared to previous KELI December 07 2023, the vegetation on the mitral valve is smaller, however the mitral regurgitation is worsened going from mild to moderate. There is also now a new moderate size pericardial effusion.
Discussion was had between Cardiology (Dr. Bridges) and Dr. Gonzalez. Plan for now will be to continue medical therapy for his MSSA endocarditis. If he decompensates then we will proceed with surgery.
ID following. Will need to determine length of time of IV ABX and possible need for suppressive PO antibiotics with known MSSA endocarditis.
Pericardiocentesis next week secondary to moderate pericardial effusion.
[2024-12-30 05:45] LABS: Blood Urea Nitrogen 9 mg/dl (9-20); Calcium 8.0 mg/dl (8.4-10.2); Carbon Dioxide 29 mmol/L (22-30); Chloride 103 mmol/L (98-107); Estimated Creatinine Clearance > 125 ml/min; Glucose 93 mg/dl (70-99); Potassium 3.9 mmol/L (3.5-5.1); Sodium 135 mmol/L (135-145); eGFR > 60.00
[2024-12-30 06:00] VITALS: BMI 25.1
[2024-12-30] MEDS: VANCOCIN 530 MG IV (06:15)
[2024-12-30 07:00] VITALS: BP 141/87
--- NOTE | 2024-12-30 07:06 | PTCARENOTE ---
Pt complaining of severe back pain, unable to perform orthostatic vitals at 0300. Regular vitals were able to be obtained
[2024-12-30 07:15] LABS: Hematocrit 24.5 % (39.0-52.0); Hemoglobin 8.3 g/dL (13.0-18.0); Mean Corp Hgb Conc. 33.9 g/dL (33.0-37.0); Mean Corpuscular Volume 88.4 fL (80.0-94.0); Platelet Count 607 10^3/uL (130-400); Red Cell Dist. Width 15.3 % (11.5-14.5)
--- NOTE | 2024-12-30 07:30 | W.PN.NEURO.1 ---
Today's Communication / Plan
-
.
Neuro Assessment/Plan
Assessment
Ceribell device did not demonstrate epileptiform activity
I. Multifactorial encephalopathy (toxic, metabolic, infectious)
II. Left occipital edema vs infarct
III. Opioid use disorder
IV. Prolonged QTc interval
Plan
Continue supportive care
Check MRI of brain when possible, the concern is infectious emboli
Will follow pending results
Subjective/Objective
Subjective Data
Date of Service: December 30, 2024
Neurology follow-up note.
Mr. Alonzo reports feeling 'absolutely fine' with no current complaints or symptoms.
He denies any headaches, changes in vision, or changes in strength. He also denies chest pain, palpitations, change in vision, sensation, balance or strength.
Brain MRI wo krystle(12/04/2024) numerous scattered foci of restricted diffusion throughout the bilateral cerebral and cerebellar hemispheres, to a lesser degree the basal ganglia and thalami, most in keeping with acute infarcts. Corresponding T2/FLAIR
hyperintense signal cytotoxic edema at the site of the infarctions. Small foci of susceptibility in the bilateral cerebral and cerebellar hemispheres with the largest in the paramedian right frontal lobe suggesting microhemorrhages.
KELI(12/29/2024)moderate in size partially mobile echodensity attached to the mitral valve annulus and also at the posterior leaflet of P1/P2. There is a very eccentric jet of moderate mitral regurgitation present around this echodensity/vegetation.
In comparison to the prior KELI December 07, 2023, the vegetation on the mitral valve is smaller, however the mitral regurgitation is worsened going from mild to moderate. There is also now a new moderate size pericardial effusion.
PMH: opioid use disorder
PSH:jaw wiring', hernia surgery
SH: single; works for a [employer] company lives with parents; does not drive; vapes, high school graduate, vapes
FH:Mother: hand tremor, breast cancer, diabetes, hypertension, hypercholesterolemia; grandmother�hand tremor, Father: Hypertension, hypercholesterolemia, diabetes
All:NKDA
ROS: General: Negative for fever.
HEENT: Negative for vision changes.
Cardiovascular: Negative for chest pain, palpitations.
Gastrointestinal: Negative for diarrhea, constipation, difficulty swallowing.
Musculoskeletal: Positive for tremor in hands.
Neurological: Negative for headaches, change in strength, balance changes, tingling or numbness in feet.
General: Well developed. In no acute distress.
Cardio: Regular rate and rhythm without murmur. Extremities 1+ edema.
Neuro:
Mental Status: Alert, fully oriented. Follows complex 3 close cross midline. No aphasia or hemineglect.
Cranial Nerves: Orthophoric primary gaze. Pupils 3 mm, reactive to light. Horizontal EOMs full. Visual figueroa are full to confrontation. No facial weakness. Hearing is preserved. No dysarthria or dysphonia.
Motor: All limbs are antigravity symmetrically purposefully.
Reflexes: Limited exam due to cooperation.
Sensory: Preserved vibration at the toes
Coordination: Bilateral action hand tremor. No dysmetria.
Gait: deferred
Assessment and Plan:
I. Subacute to chronic embolic bihemispheric strokes.
II. Staphylococcus aureus mitral valve endocarditis. Patients with IE are at risk for ICH from hemorrhagic transformation of an embolic stroke, rupture of a mycotic aneurysm, or septic arteritis with hemorrhage from vessel wall erosions.The
available limited data suggest that neither anticoagulation therapy nor Aspirin reduce the risk of embolism in patients with IE. Anticoagulant or antiplatelet therapy is not indicated to reduce the risk of thromboembolic complications of IE.
III. Opioid use disorder
IV. Hepatitis C
- Telemetry monitoring
- ID, CT surgery follow up
- Outpatient urology follow-up
- Please recall neurology service with any questions or concerns
I personally reviewed all radiology and labs along with past medical records pertinent to current medical problems. Total time spent in patient care is 35 minutes.
Thank you for allowing us to participate in the care of this patient. Please do not hesitate to contact us with any questions or concerns.
Objective Data
Vital Signs
Temp Pulse Resp BP Pulse Ox
36.7 C 90 18 124/86 98
12/29/24 21:25 12/29/24 21:25 12/29/24 21:25 12/29/24 21:25 12/29/24 21:25
Lab Results
12/30/24 04:59
12/30/24 04:59
PT 15.1 Sec (11.4-14.6) H 12/26/24 06:08
INR 1.16 12/26/24 06:08
APTT 30.9 Sec (23.4-35.0) 12/26/24 06:08
Sodium 135 mmol/L (135-145) 12/30/24 04:59
Potassium 3.9 mmol/L (3.5-5.1) 12/30/24 04:59
BUN 9 mg/dl (9-20) 12/30/24 04:59
Glucose 93 mg/dl (70-99) 12/30/24 04:59
Calcium 8.0 mg/dl (8.4-10.2) L 12/30/24 04:59
Phosphorus 3.3 mg/dl (2.5-4.5) 12/21/24 03:53
Biu-V-Tdvqqqqubdc Pept 1450 pg/ml 12/30/24 04:59
Ur Buprenorphine Negative (Negative) 12/03/24 08:38
Patient Allergies
No Known Drug Allergies Allergy (Verified 12/03/24 11:44)
Unknown
Vital Signs and Labs
-
Vital Signs and Labs:
Vital Signs
Temp Pulse Resp BP Pulse Ox
37.1 C 103 16 141/87 97
12/30/24 07:00 12/30/24 07:00 12/30/24 07:00 12/30/24 08:57 12/30/24 07:00
Lab Results
12/30/24 04:59
12/30/24 04:59
PT 15.1 Sec (11.4-14.6) H 12/26/24 06:08
INR 1.16 12/26/24 06:08
APTT 30.9 Sec (23.4-35.0) 12/26/24 06:08
Sodium 135 mmol/L (135-145) 12/30/24 04:59
Potassium 3.9 mmol/L (3.5-5.1) 12/30/24 04:59
BUN 9 mg/dl (9-20) 12/30/24 04:59
Glucose 93 mg/dl (70-99) 12/30/24 04:59
Calcium 8.0 mg/dl (8.4-10.2) L 12/30/24 04:59
Phosphorus 3.3 mg/dl (2.5-4.5) 12/21/24 03:53
Pcp-G-Vokfqvcmpem Pept 1450 pg/ml 12/30/24 04:59
Ur Buprenorphine Negative (Negative) 12/03/24 08:38
Medications
-
Medications:
Generic Name Dose Route Start Last Admin
Trade Name Freq PRN Reason Stop Dose Admin
Acetaminophen 650 mg 12/13/24 14:18
Acetaminophen 325 Mg Tablet PO 01/10/25 14:17
Q4HPRN PRN
fever>100.3/mild pain
Acetaminophen 1,000 mg 12/13/24 16:00 12/30/24 08:58
Acetaminophen 500 Mg Tablet PO 01/10/25 15:59 1,000 mg
Q8 JENNIFER Administration
Aspirin 81 mg 12/14/24 08:00 12/30/24 08:58
Aspirin 81 Mg Chewable Tablet PO 01/11/25 07:59 81 mg
DAILY JENNIFER Administration
Buprenorphine 16 mg 12/18/24 08:00 12/30/24 08:58
Buprenorphine 8 Mg Sl Tablet SL 01/01/25 07:59 16 mg
DAILY@0800 JENNIFER Administration
Buprenorphine 4 mg 12/21/24 22:00 12/29/24 21:26
Buprenorphine 2 Mg Sl Tablet SL 01/04/25 21:59 4 mg
HS JENNIFER Administration
Buprenorphine 2 mg 12/28/24 10:49
Buprenorphine 2 Mg Sl Tablet SL 01/11/25 10:48
Q4HPRN PRN
opioid withdrawal symptoms
Carvedilol 25 mg 12/19/24 20:00 12/30/24 08:58
Carvedilol 25 Mg Tablet PO 01/16/25 19:59 25 mg
BID JENNIFER Administration
Clonidine HCl 0.3 mg 12/13/24 18:00 12/30/24 08:58
Clonidine 0.3 Mg Tablet PO 01/10/25 17:59 0.3 mg
QID JENNIFER Administration
Diazepam 5 mg 12/11/24 16:25
Diazepam 10 Mg/2 Ml Inj IV 01/08/25 16:24
Q6HPRN PRN
AGITATION
Dicyclomine HCl 10 mg 12/13/24 15:26
Dicyclomine 10 Mg Capsule PO 01/10/25 15:25
Q6HPRN PRN
abdominal cramps
Furosemide 40 mg 12/19/24 17:00 12/30/24 09:01
Furosemide 40 Mg (10 Mg/Ml) 4 Ml Vial IV 01/16/25 16:59 40 mg
DAILY JENNIFER Administration
Heparin Sodium 5,000 units 12/13/24 16:00 12/30/24 08:58
Heparin 5,000 Units/Ml 1 Ml Vial SC 01/10/25 15:59 5,000 units
Q8 JENNIFER Administration
Hydralazine HCl 5 mg 12/03/24 16:32 12/14/24 06:04
Hydralazine 20 Mg/Ml Vial IV 12/31/24 16:31 5 mg
Q6HPRN PRN Administration
SBP>160, hold if HR>100
Hydroxyzine HCl 50 mg 12/13/24 15:26
Hydroxyzine 25 Mg Tablet PO 01/10/25 15:25
Q6HPRN PRN
refractory anxiety
Nafcillin Sodium 2,000 mg/ 108 mls @ 108 mls/hr 12/06/24 12:00 12/30/24 08:49
Sodium Chloride IV 01/23/25 20:59 108 mls
Q4H JENNIFER Administration
Vancomycin HCl 1,500 mg/ 530 mls @ 353.333 mls/hr 12/28/24 06:00 12/30/24 06:15
Sodium Chloride IV 01/23/25 07:29 530 mls
DAILY@0600 JENNIFER Administration
Protocol
Labetalol HCl 10 mg 12/14/24 10:15
Labetalol Hcl 5 Mg/1 Ml (20 Mg/4 Ml) Injection IV 01/11/25 10:14
Q6HPRN PRN
SBP >160+ HR >100
Loperamide HCl 2 mg 12/13/24 15:26
Loperamide 2 Mg Capsule PO 01/10/25 15:25
Q4HPRN PRN
loose stools
Magnesium Oxide 500 mg 12/19/24 17:00 12/30/24 08:57
Magnesium Oxide 500 Mg Tablet PO 01/16/25 16:59 500 mg
DAILY JENNIFER Administration
Melatonin 10 mg 12/14/24 22:00 12/29/24 21:25
Melatonin 5 Mg Tablet PO 01/11/25 21:59 10 mg
HS JENNIFER Administration
Miconazole Nitrate 0 applic 12/20/24 20:00 12/30/24 09:01
Miconazole Powder Bottle TOPICAL 01/17/25 19:59 1 applic
BID JENNIFER Administration
Multivitamins Therapeutic 1 tablet 12/14/24 08:00 12/30/24 08:58
Multivitamin Tablet PO 01/11/25 07:59 1 tablet
DAILY JENNIFER Administration
Naloxone HCl 0.4 mg 12/13/24 15:26
Naloxone (0.4 Mg/Ml) 1 Ml Injection IV
Q5MPRN PRN
RR </= 8 breaths/min
Ondansetron HCl 4 mg 12/13/24 15:26
Ondansetron 4 Mg/2 Ml Vial IV 01/10/25 15:25
Q6HPRN PRN
nausea
Sodium Chloride 0 flush 12/28/24 11:00
Sodium Chloride 0.9% (Flush) Syringe IV 01/25/25 10:59
PER PROTOCOL JENNIFER
Spironolactone 25 mg 12/22/24 12:00 12/30/24 08:57
Spironolactone 25 Mg Tablet PO 01/19/25 11:59 25 mg
DAILY JENNIFER Administration
Thiamine HCl 100 mg 12/14/24 08:00 12/30/24 08:58
Thiamine 100 Mg Tablet PO 01/11/25 07:59 100 mg
DAILY JENNIFER Administration
Tizanidine HCl 2 mg 12/13/24 15:25
Tizanidine 2 Mg Tablet PO 01/10/25 15:24
Q6HPRN PRN
restlessness,agitation,anxiety
Home Medications
-
Home Medications
Fiber-Caps (psyllium husk) 500 mg PO DAILY Supplement 12/03/24
[2024-12-30] MEDS: ALDACTONE 25 MG PO (08:57)
[2024-12-30] MEDS: MAGNESIUM OXIDE 500 MG PO (08:57)
[2024-12-30] MEDS: TYLENOL 1000 MG PO ×2 (08:58→15:27)
[2024-12-30] MEDS: THERAGRAN 1 TABLET PO (08:58)
[2024-12-30] MEDS: VITAMIN B1 100 MG PO (08:58)
[2024-12-30] MEDS: CATAPRES 0.3 MG PO ×4 (08:58→21:42)
[2024-12-30] MEDS: HEPARIN 5000 UNITS SC ×2 (08:58→15:28)
[2024-12-30] MEDS: COREG 25 MG PO ×2 (08:58→21:42)
[2024-12-30] MEDS: SUBUTEX 16 MG SL (08:58)
[2024-12-30] MEDS: LOW STRENGTH ASPIRIN 81 MG PO (08:58)
[2024-12-30] MEDS: DESENEX/MITRAZOL/ZEASORB 1 APPLIC TOPICAL ×2 (09:01→21:38)
[2024-12-30] MEDS: LASIX 40 MG IV (09:01)
--- NOTE | 2024-12-30 09:01 | PHA.VAN.FU ---
Vancomycin Assessment / Plan
- Assessment
Renal Function: Stable
WBC's are: WNL
In the past 24 hrs, patient has been: Afebrile
Concomitant Antimicrobials: nafcillin
- Dosing Plan
Continue: vancomycin 1500 mg Q24H
- Monitoring Plan
No level(s) ordered at this time: consider levels in next few days
- Follow Up
Pharmacy will continue to follow.
Vancomycin Follow UP
- -
Patient Age: 39
Patient Sex: Male
Vancomycin Day #: 28
Indication: Bacteremia
Requesting Provider: Dr. Fofana / Teto
Pertinent Antimicrobial Allergies:
NKDA
Height / Weight:
Height 6 ft 2 in
Actual Weight 88.451 kg
IBW in k.2
Pertinent Past Medical History: IV JOCELIN
- Vital Signs / Lab Results
Temp Pulse Resp BP Pulse Ox
98.7 F 103 16 141/87 97
12/30/24 07:00 12/30/24 07:00 12/30/24 07:00 12/30/24 07:00 12/30/24 07:00
Lab Results - Hematology
12/28/24 12/29/24 12/30/24
04:05 05:07 04:59
WBC 5.5 5.5 6.5
Lab Results - Chemistry
12/29/24 12/30/24
10:50 04:59
BUN 8 L 9
Creatinine 0.8 0.8
Estimated Creat Clear > 125 > 125
Therapeutic Drug Monitoring
Vancomycin Peak 23.2 ug/ml (18-26) 12/26/24 20:55
Vancomycin Trough 15.7 ug/ml (5-20) 12/27/24 05:28
Random Vancomycin 13.9 ug/ml 12/21/24 03:53
--- NOTE | 2024-12-30 10:39 | W.PN.CARDCBS ---
Addendum entered and electronically signed by Brigitte Gamez MD 12/30/24 15:25:
I saw and examined the patient.
The Edi Manager's note was reviewed and I agree with the note.
Comment: Pale appearing man
Heart: Distant heart sounds 3/6 apical holosystolic murmur
Lungs: Coarse breath sounds anteriorly
Extremities: No clubbing cyanosis edema.
Complicated case with MSSA bacteremia, septic emboli and endocarditis. Plan using multidisciplinary team approach is for continued antibiotic treatment and follow-up. In addition patient is noted to have pericardial effusion and for further
assessment he will undergo pericardiocentesis on Wednesday. Discussed with patient and he is agreeable. All questions answered. Continue current treatment.
Original Note:
Today's Communication / Plan
-
Continue abx
Continue current cardiac medications.
Pericardiocentesis tentatively planned for 01/01.
Impression / Plan
-
PCP: None prior to admission
Primary Property Staff Accountant: none prior to admission
Impression:
Presentation with change in mental status 12/03/24
Sepsis
Septic emboli by brain MRI
MSSA bacteremia
Pancreatitis
TME
VDRF
LE
Rhabdomyolysis
Elevated LFTs
Thrombocytopenia
Anemia, possibly hemolytic
IVDA since age 19
Vaping
Hypokalemia
Acute HFpEF
LUE DVT
Dental extractions, 15 teeth removed as an inpatient on 12/25/2024
ECHO 12/04/2024: EF 55 to 60%, no regional wall motion abnormalities noted, no evidence of vegetation seen
KELI 12/07/2024: EF 65%, large endocarditis/vegetations attached to mitral annulus measuring ~1x1cm each, mild MR, no Tricuspid or aortic vegetations
Echo 12/14/2024: EF 60-65%, thick echodensity of mitral annulus 1.6x20 cm, trace MR
Echo 12/27/2024: EF 60-65%, trace MR, mobile echodensity consistent with known endocarditis seen near the mitral valve posterior leaflet annulus, moderate circumferential pericardial effusion without evidence of tamponade physiology
KELI 12/29/2024: EF 65%, moderate in size partially mobile echodensity attached to the mitral valve annulus and also at the posterior leaflet of P1/P2, eccentric jet of moderate MR present around echodensity/vegetation, moderate pericardial effusion
Plan:
-Admitted with confusion and generalized weakness, changes in urine output and back pain. Then developed VDRF in the setting of sepsis, septic shock, TME, brain lesions concerning for embolic disease and rhabdo.
-KELI 12/07/2024 noted evidence of large endocarditis/vegetations attached to the mitral annulus. Continues on IV antibiotics per ID recommendations.
-Underwent repeat KELI 12/29 as above with improvement in the size of the echodensity on the mitral valve, however mitral regurgitation now worsened and moderate pericardial effusion noted.
-Plan is to continue antibiotics and reassess as OP with CT surgery to discuss optimal plan for surgery.
-Given moderate pericardial effusion, he is planned for pericardiocentesis on Monday 01/01.
-Hgb has been intermittently dropping throughout admission requiring transfusions. s/p 4 units PRBCs this admission, most recently 12/28. Hgb stable at 8.3.
-Not on OAC due to risk of hemorrhage with septic emboli on MRI of brain earlier in admission despite LUE DVT.
-He is s/p 15 dental extractions 12/25.
-Continue IV lasix 40mg daily. Creat stable at 0.8. Weight down to 195lbs.
-New to Coreg 25mg BID, spironolactone 25mg daily, and clonidine 0.3mg daily this admission.
Progress Note - Property Staff Accountant
Subjective
Date of Service: December 30, 2024
No complaints.
Objective
Labs:
12/30/24 04:59
12/30/24 04:59
Labs
Hgb 8.3 g/dL (13.0-18.0) L 12/30/24 04:59
Hct 24.5 % (39.0-52.0) L 12/30/24 04:59
Plt Count 607 10^3/uL (130-400) H 12/30/24 04:59
PT 15.1 Sec (11.4-14.6) H 12/26/24 06:08
INR 1.16 12/26/24 06:08
APTT 30.9 Sec (23.4-35.0) 12/26/24 06:08
Sodium 135 mmol/L (135-145) 12/30/24 04:59
Potassium 3.9 mmol/L (3.5-5.1) 12/30/24 04:59
BUN 9 mg/dl (9-20) 12/30/24 04:59
Creatinine 0.8 mg/dL (0.7-1.3) 12/30/24 04:59
Glucose 93 mg/dl (70-99) 12/30/24 04:59
Vital Signs and I&O:
Vital Signs
Temp Pulse Resp BP Pulse Ox
98.7 F 103 16 141/87 97
12/30/24 07:00 12/30/24 07:00 12/30/24 07:00 12/30/24 08:57 12/30/24 07:00
Vital Signs
Temp Pulse Resp BP Pulse Ox
98.7 F 103 16 141/87 97
12/30/24 07:00 12/30/24 07:00 12/30/24 07:00 12/30/24 08:57 12/30/24 07:00
Intake & Output
12/28/24 12/29/24 12/30/24 12/31/24
06:59 06:59 06:59 06:59
Intake Total 490 / 490 1554 / 1554 1680 / 1680
Output Total 1999 / 1999 2500 / 2500 4050 / 4050
Balance -1510 / -1510 -946 / -946 -2370 / -2370
Physical Exam
Physical Exam
GEN: NAD
LUNGS: RA
CV: Reg
--- NOTE | 2024-12-30 13:26 | W.PN.HOSP.TC ---
Today's Communication/Plan
-
Continue IV antibiotic .
pericardiocentesis possible 01/01.
Assessment / Plan
Assessment / Plan
Impression:
Patient is a 39-year-old male with a medical history of polysubstance abuse (skin popping with fentanyl) who was admitted after presentation with altered mental status. He was brought in by his parents with tremors and confusion. His mental status
abruptly declined and he was intubated for airway protection. CT brain showed possible left occipital lobe mass. His blood cultures are positive for MRSA. He was initially being managed in the ICU for treatment of encephalopathy and bacteremia.
Patient extubated. Now downgraded to general medical floors.
CT surgery recommending dental extraction while in the hospital and consider valve replacement during this admission.
status post 15 tooth extraction 01/04, follow-up CT surgeon recommendation regarding valve replacement.
Hemoglobin dropped again status post 2 more units of blood transfusion.
Repeat echocardiogram shows
1. Normal left ventricular size, wall thickness and systolic function. No regional wall motion abnormalities are seen.
2. Ejection fraction is 60-65% by visual assesment.
3. Trace mitral valve regurgitation. Mobile echodensity consistent with known endocarditis seen near the mitral valve posterior leaflet annulus.
4. Moderate circumferential pericardial effusion without evidence of tamponade physiology.
5. Compared to a prior echo from December 14 2024, which was reviewed, there is now a moderate pericardial effusion, findings are otherwise similar.
6. Fair image quality.
KELI 12/29/2024: EF 65%, moderate in size partially mobile echodensity attached to the mitral valve annulus and also at the posterior leaflet of P1/P2, eccentric jet of moderate MR present around echodensity/vegetation, moderate pericardial effusion
Pericardiocentesis tentatively planned for 01/01.
Assessment/plan:
Septic shock secondary to MRSA/MSSA bacteremia:
- Off vasopressors and downgraded to general medical floors
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
- Afebrile since 12/11, leukocytosis resolved
- Transesophageal echocardiogram 12/06 showed large mitral annulus vegetation
- No current plans for cardiothoracic surgery but will likely eventually require surgery after completing antibiotic course, preop dental x-rays obtained 12/21
- ID following, continue antibiotics with vancomycin and nafcillin, repeat cultures negative since 12/13
- Continue antibiotics with vancomycin and nafcillin through 01/23/2025 (6 weeks from sterile cultures on 12/13)
- PICC line discontinued
- follow-up with cardiothoracic surgery regarding options
12/25
CT surgery recommending dental extraction while in the hospital and consider valve replacement during this admission.
12/26
status post 15 tooth extraction 12/25, follow-up CT surgeon recommendation regarding valve replacement.
12/27
Repeat echocardiogram
1. Normal left ventricular size, wall thickness and systolic function. No regional wall motion abnormalities are seen.
2. Ejection fraction is 60-65% by visual assesment.
3. Trace mitral valve regurgitation. Mobile echodensity consistent with known endocarditis seen near the mitral valve posterior leaflet annulus.
4. Moderate circumferential pericardial effusion without evidence of tamponade physiology.
5. Compared to a prior echo from December 14 2024, which was reviewed, there is now a moderate pericardial effusion, findings are otherwise similar.
6. Fair image quality.
12/29
For KELI today
12/30
KELI shows: EF 65%, moderate in size partially mobile echodensity attached to the mitral valve annulus and also at the posterior leaflet of P1/P2, eccentric jet of moderate MR present around echodensity/vegetation, moderate pericardial effusion
Pericardiocentesis tentatively planned for 01/01.
Polysubstance abuse:
- Long history of injection drug abuse
- Now doing well with initiation of buprenorphine treatment, currently 16 mg sublingual daily and 4 mg at night
- Will need coordination with [facility] at time of hospital discharge
Anemia requiring transfusion
- Slowly downtrending hemoglobin over the course of his hospitalization, was transfused 1 unit PRBCs for hemoglobin of 7.2 on 12/19
- Transfused a second unit PRBCs 12/21 for hemoglobin 6.9, hemoglobin appropriately improved, remains stable around 7.5
- No evidence of active bleeding, suspect due to ongoing infection and frequent blood draws, will attempt to limit blood draws
- Will monitor
on 12/27,12/28 Hemoglobin dropped , s/p aditiona 2 unit of blood transfusion.
12/29
Hemoglobin stable
Acute hypoxic respiratory failure.
Ventilation dependent respiratory failure.
12/13
Patient extubated
Acute toxic metabolic encephalopathy:
- EEG with no acute epileptiform activity captured
- Encephalopathy likely multifactorial due to bacteremia, opiate withdrawal, and and suspected septic emboli to brain
- MRI brain consistent with suspicion for septic emboli, repeat CT brain shows stable findings
- Now resolved, patient at baseline mental status, extubated 12/13
Left upper extremity DVT involving brachial vein
Given his multiple scattered acute infarctions with microhemorrhages, patient is high risk for ICH if systemic anticoagulation started
PICC line removed repeat ultrasound shows left brachial vein nonocclusive DVT.
continue subcu heparin.
Hypomagnesemia:
- Resolved, monitor
LE:
- Resolved
Hypokalemia:
- Resolved
- Monitor
Rhabdomyolysis:
- Resolved
Elevated LFTs:
- Suspect due to severe sepsis
- Resolved, monitor with treatment as above
Pancreatitis:
- Resolved
Lactic acidosis:
- Resolved, continue to monitor
CODE STATUS: Full code
DVT prophylaxis: Subcu heparin
Diet: Regular diet
Disposition: Pericardiocentesis tentatively planned for 01/01.
Family communication: Discussed with family at bedside
Total time spent on today's encounter was 65 minutes which included time spent in counseling the patient/family regarding diagnosis and treatment plan as listed above, goals of care, and symptom management. Case was discussed with nursing staff,
specialists, and care coordinators/case management. All labs and imaging personally reviewed by me. Remainder the time spent in detailed review of previous records, lab data, imaging, and other medical provider documentation.
Anticipated Discharge: > 48 hours
Subjective/Interval History
-
Date of Service: December 30, 2024
Patient seen and examined at bedside, denies any chest pain or shortness of breath, no abdominal pain, no nausea, no vomiting, no diarrhea or constipation.
Discussed with parents at bedside.
Objective Data
-
Labs:
Laboratory Results
12/30/24
04:59
WBC 6.5
Hgb 8.3 L
Hct 24.5 L
Plt Count 607 H
Sodium 135
Potassium 3.9
Chloride 103
Carbon Dioxide 29
BUN 9
Creatinine 0.8
Glucose 93
Calcium 8.0 L
Vital Signs:
Vital Signs
Temp Pulse Resp BP Pulse Ox
98.7 F 103 16 141/87 97
12/30/24 07:00 12/30/24 07:00 12/30/24 07:00 12/30/24 08:57 12/30/24 07:00
I&O
12/29/24 12/30/24 12/31/24
06:59 06:59 06:59
Intake Total 1554 / 1554 1680 / 1680
Output Total 2500 / 2500 4050 / 4050 600 / 600
Balance -946 / -946 -2370 / -2370 -600 / -600
Physical Exam
-
General: Well Developed and Other (Pallor)
HEENT: Normocephalic and Atraumatic
Respiratory: Rales, Rhonchi and Crackles
Cardiac: Tachycardic
Breast: Deferred by me
GI: Soft, Nontender, Nondistended and Normal Bowel Sounds
Genito-urinary: No Costovertebral Tender
Musculoskeletal: No Clubbing, No Cyanosis and No Edema
Skin: Warm
Neuro: Awake and Alert
Psych: Calm
Data Reviewed
-
Diagnostic Radiology: Image personally visualized and interpreted and Report Reviewed by me
CT Scan: Image personally visualized and interpreted and Report Reviewed by me
Ultrasound: Image personally visualized and interpreted and Report Reviewed by me
MRI: Image personally visualized and interpreted and Report Reviewed by me
Medical Tests (Nuc Med, Echo etc): Image personally visualized and interpreted and Report Reviewed by me
Labs: Labs Reviewed by me
Old Records: Reviewed
[2024-12-30 15:00] VITALS: BP 133/88
[2024-12-30] MEDS: SUBUTEX 4 MG SL (21:35)
[2024-12-30] MEDS: MELATONIN 10 MG PO (21:36)
[2024-12-30] MEDS: FLUSH (NSS) 2 FLUSH IV (21:39)
[2024-12-30 23:56] VITALS: BP 123/78
[2024-12-31] MEDS: NAFCIL 108 MG IV ×6 (01:18→20:29)
[2024-12-31] MEDS: TYLENOL 1000 MG PO ×3 (01:20→16:25)
[2024-12-31] MEDS: HEPARIN 5000 UNITS SC ×3 (01:21→16:25)
[2024-12-31 04:45] LABS: Hematocrit 23.4 % (39.0-52.0); Hemoglobin 7.9 g/dL (13.0-18.0); Mean Corp Hgb Conc. 33.8 g/dL (33.0-37.0); Mean Corpuscular Volume 87.6 fL (80.0-94.0); Platelet Count 580 10^3/uL (130-400); Red Cell Dist. Width 15.0 % (11.5-14.5)
[2024-12-31 05:09] LABS: Blood Urea Nitrogen 10 mg/dl (9-20); Calcium 8.2 mg/dl (8.4-10.2); Carbon Dioxide 31 mmol/L (22-30); Chloride 101 mmol/L (98-107); Estimated Creatinine Clearance > 125 ml/min; Glucose 89 mg/dl (70-99); Sodium 135 mmol/L (135-145); eGFR > 60.00
[2024-12-31 05:15] LABS: Potassium 4.0 mmol/L (3.5-5.1)
[2024-12-31] MEDS: VANCOCIN 530 MG IV (05:21)
[2024-12-31 06:00] VITALS: BMI 24.8
[2024-12-31 07:00] VITALS: BP 122/80
[2024-12-31] MEDS: THERAGRAN 1 TABLET PO (09:12)
[2024-12-31] MEDS: LOW STRENGTH ASPIRIN 81 MG PO (09:12)
[2024-12-31] MEDS: VITAMIN B1 100 MG PO (09:12)
[2024-12-31] MEDS: MAGNESIUM OXIDE 500 MG PO (09:12)
[2024-12-31] MEDS: COREG 25 MG PO ×2 (09:13→20:30)
[2024-12-31] MEDS: CATAPRES 0.3 MG PO ×3 (09:14→20:30)
[2024-12-31] MEDS: LASIX 40 MG IV (09:14)
[2024-12-31] MEDS: ALDACTONE 25 MG PO (09:14)
[2024-12-31] MEDS: SUBUTEX 16 MG SL (09:15)
[2024-12-31] MEDS: DESENEX/MITRAZOL/ZEASORB 1 APPLIC TOPICAL ×2 (09:32→20:40)
--- NOTE | 2024-12-31 10:15 | PHA.VAN.FU ---
Vancomycin Assessment / Plan
- Assessment
Renal Function: Stable
WBC's are: WNL
In the past 24 hrs, patient has been: Afebrile
Concomitant Antimicrobials: nafcillin
- Assessment - Therapeutic Drug Monitoring
Extrapolated Cmax (mcg/mL): 26
Peak level was drawn: Appropriately (approx. 2.5 H after end of infusion. awaiting trough level on 01/01)
- Dosing Plan
Continue: vancomycin 1500 mg daily
- Monitoring Plan
Trough Level: 8.11 @0530
- Follow Up
Pharmacy will continue to follow.
Vancomycin Follow UP
- -
Patient Age: 39
Patient Sex: Male
Vancomycin Day #: 29
Indication: Bacteremia
Requesting Provider: Dr. Fofana / Teto
Pertinent Antimicrobial Allergies:
NKDA
Height / Weight:
Height 6 ft 2 in
Actual Weight 87.543 kg
IBW in k.2
Pertinent Past Medical History: IV JOCELIN
- Vital Signs / Lab Results
Temp Pulse Resp BP Pulse Ox
98.0 F 97 16 122/80 97
12/31/24 07:00 12/31/24 07:00 12/31/24 07:00 12/31/24 09:13 12/31/24 07:00
Lab Results - Hematology
12/29/24 12/30/24 12/31/24
05:07 04:59 04:12
WBC 5.5 6.5 7.2
Lab Results - Chemistry
12/29/24 12/30/24 12/31/24
10:50 04:59 04:12
BUN 8 L 9 10
Creatinine 0.8 0.8 0.8
Estimated Creat Clear > 125 > 125 > 125
Therapeutic Drug Monitoring
Vancomycin Peak 26.0 ug/ml (18-26) 12/31/24 09:30
Vancomycin Trough 15.7 ug/ml (5-20) 12/27/24 05:28
Random Vancomycin 13.9 ug/ml 12/21/24 03:53
--- NOTE | 2024-12-31 12:41 | W.PN.HOSP.TC ---
Today's Communication/Plan
-
Continue IV antibiotic .
pericardiocentesis possible 01/01.
Discharge plan to SNF
Assessment / Plan
Assessment / Plan
Impression:
Patient is a 39-year-old male with a medical history of polysubstance abuse (skin popping with fentanyl) who was admitted after presentation with altered mental status. He was brought in by his parents with tremors and confusion. His mental status
abruptly declined and he was intubated for airway protection. CT brain showed possible left occipital lobe mass. His blood cultures are positive for MRSA. He was initially being managed in the ICU for treatment of encephalopathy and bacteremia.
Patient extubated. Now downgraded to general medical floors.
CT surgery recommending dental extraction while in the hospital and consider valve replacement during this admission.
status post 15 tooth extraction 01/04, follow-up CT surgeon recommendation regarding valve replacement.
Hemoglobin dropped again status post 2 more units of blood transfusion.
Repeat echocardiogram shows
1. Normal left ventricular size, wall thickness and systolic function. No regional wall motion abnormalities are seen.
2. Ejection fraction is 60-65% by visual assesment.
3. Trace mitral valve regurgitation. Mobile echodensity consistent with known endocarditis seen near the mitral valve posterior leaflet annulus.
4. Moderate circumferential pericardial effusion without evidence of tamponade physiology.
5. Compared to a prior echo from December 14 2024, which was reviewed, there is now a moderate pericardial effusion, findings are otherwise similar.
6. Fair image quality.
KELI 12/29/2024: EF 65%, moderate in size partially mobile echodensity attached to the mitral valve annulus and also at the posterior leaflet of P1/P2, eccentric jet of moderate MR present around echodensity/vegetation, moderate pericardial effusion
Pericardiocentesis tentatively planned for 01/01.
Assessment/plan:
Septic shock secondary to MRSA/MSSA bacteremia:
- Off vasopressors and downgraded to general medical floors
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
- Afebrile since 12/11, leukocytosis resolved
- Transesophageal echocardiogram 12/06 showed large mitral annulus vegetation
- No current plans for cardiothoracic surgery but will likely eventually require surgery after completing antibiotic course, preop dental x-rays obtained 12/21
- ID following, continue antibiotics with vancomycin and nafcillin, repeat cultures negative since 12/13
- Continue antibiotics with vancomycin and nafcillin through 01/23/2025 (6 weeks from sterile cultures on 12/13)
- PICC line discontinued
- follow-up with cardiothoracic surgery regarding options
12/25
CT surgery recommending dental extraction while in the hospital and consider valve replacement during this admission.
12/26
status post 15 tooth extraction 12/25, follow-up CT surgeon recommendation regarding valve replacement.
12/27
Repeat echocardiogram
1. Normal left ventricular size, wall thickness and systolic function. No regional wall motion abnormalities are seen.
2. Ejection fraction is 60-65% by visual assesment.
3. Trace mitral valve regurgitation. Mobile echodensity consistent with known endocarditis seen near the mitral valve posterior leaflet annulus.
4. Moderate circumferential pericardial effusion without evidence of tamponade physiology.
5. Compared to a prior echo from December 14 2024, which was reviewed, there is now a moderate pericardial effusion, findings are otherwise similar.
6. Fair image quality.
12/29
For KELI today
12/30
KELI shows: EF 65%, moderate in size partially mobile echodensity attached to the mitral valve annulus and also at the posterior leaflet of P1/P2, eccentric jet of moderate MR present around echodensity/vegetation, moderate pericardial effusion
Pericardiocentesis tentatively planned for 01/01.
Polysubstance abuse:
- Long history of injection drug abuse
- Now doing well with initiation of buprenorphine treatment, currently 16 mg sublingual daily and 4 mg at night
- Will need coordination with [facility] at time of hospital discharge
Anemia requiring transfusion
- Slowly downtrending hemoglobin over the course of his hospitalization, was transfused 1 unit PRBCs for hemoglobin of 7.2 on 12/19
- Transfused a second unit PRBCs 12/21 for hemoglobin 6.9, hemoglobin appropriately improved, remains stable around 7.5
- No evidence of active bleeding, suspect due to ongoing infection and frequent blood draws, will attempt to limit blood draws
- Will monitor
on 12/27,12/28 Hemoglobin dropped , s/p aditiona 2 unit of blood transfusion.
12/29
Hemoglobin stable
Acute hypoxic respiratory failure.
Ventilation dependent respiratory failure.
12/13
Patient extubated
Acute toxic metabolic encephalopathy:
- EEG with no acute epileptiform activity captured
- Encephalopathy likely multifactorial due to bacteremia, opiate withdrawal, and and suspected septic emboli to brain
- MRI brain consistent with suspicion for septic emboli, repeat CT brain shows stable findings
- Now resolved, patient at baseline mental status, extubated 12/13
Left upper extremity DVT involving brachial vein
Given his multiple scattered acute infarctions with microhemorrhages, patient is high risk for ICH if systemic anticoagulation started
PICC line removed repeat ultrasound shows left brachial vein nonocclusive DVT.
continue subcu heparin.
Hypomagnesemia:
- Resolved, monitor
LE:
- Resolved
Hypokalemia:
- Resolved
- Monitor
Rhabdomyolysis:
- Resolved
Elevated LFTs:
- Suspect due to severe sepsis
- Resolved, monitor with treatment as above
Pancreatitis:
- Resolved
Lactic acidosis:
- Resolved, continue to monitor
CODE STATUS: Full code
DVT prophylaxis: Subcu heparin
Diet: Regular diet
Disposition: Pericardiocentesis tentatively planned for 01/01.
Family communication: Discussed with family at bedside
Total time spent on today's encounter was 65 minutes which included time spent in counseling the patient/family regarding diagnosis and treatment plan as listed above, goals of care, and symptom management. Case was discussed with nursing staff,
specialists, and care coordinators/case management. All labs and imaging personally reviewed by me. Remainder the time spent in detailed review of previous records, lab data, imaging, and other medical provider documentation.
Anticipated Discharge: > 48 hours
Subjective/Interval History
-
Date of Service: December 31, 2024
Patient seen and examined at bedside, denies any chest pain or shortness of breath, no abdominal pain, no nausea, no vomiting, no diarrhea or constipation.
Discussed with parents at bedside.
For pericardiocentesis in am.
Objective Data
-
Labs:
Laboratory Results
12/31/24
04:12
WBC 7.2
Hgb 7.9 L
Hct 23.4 L
Plt Count 580 H
Sodium 135
Potassium 4.0
Chloride 101
Carbon Dioxide 31 H
BUN 10
Creatinine 0.8
Glucose 89
Calcium 8.2 L
Vital Signs:
Vital Signs
Temp Pulse Resp BP Pulse Ox
98.0 F 97 16 122/80 97
12/31/24 07:00 12/31/24 07:00 12/31/24 07:00 12/31/24 09:13 12/31/24 07:00
I&O
12/30/24 12/31/24 01/01/25
06:59 06:59 06:59
Intake Total 1680 / 1680 1334 / 1334
Output Total 4050 / 4050 1400 / 1400 2825 / 2825
Balance -2370 / -2370 -1400 / -1400 -1491 / -1491
Physical Exam
-
General: Well Developed and Other (Pallor)
HEENT: Normocephalic and Atraumatic
Respiratory: Rales, Rhonchi and Crackles
Cardiac: Tachycardic
Breast: Deferred by me
GI: Soft, Nontender, Nondistended and Normal Bowel Sounds
Genito-urinary: No Costovertebral Tender
Musculoskeletal: No Clubbing, No Cyanosis and No Edema
Skin: Warm
Neuro: Awake and Alert
Psych: Calm
Data Reviewed
-
Diagnostic Radiology: Image personally visualized and interpreted and Report Reviewed by me
CT Scan: Image personally visualized and interpreted and Report Reviewed by me
Ultrasound: Image personally visualized and interpreted and Report Reviewed by me
MRI: Image personally visualized and interpreted and Report Reviewed by me
Medical Tests (Nuc Med, Echo etc): Image personally visualized and interpreted and Report Reviewed by me
Labs: Labs Reviewed by me
Old Records: Reviewed
[2024-12-31 15:00] VITALS: BP 103/61
[2024-12-31] MEDS: CATAPRES PO (18:05)
[2024-12-31 20:07] VITALS: BP 124/81
[2024-12-31] MEDS: FLUSH (NSS) 2 FLUSH IV (20:34)
[2024-12-31] MEDS: SUBUTEX 4 MG SL (21:02)
[2024-12-31] MEDS: MELATONIN 10 MG PO (21:02)
[2024-12-31 23:30] VITALS: BP 119/72
[2025-01-01] VITALS (13 sets, daily range): BP systolic 122–167; BP diastolic 68–109; PULSE 89; O2SAT 95; BMI 24.6
[2025-01-01] MEDS: NAFCIL 108 MG IV ×6 (00:59→22:48)
[2025-01-01] MEDS: HEPARIN 5000 UNITS SC ×4 (00:59→23:40)
[2025-01-01] MEDS: FLUSH (NSS) 2 FLUSH IV ×2 (01:00→04:29)
[2025-01-01] MEDS: TYLENOL 1000 MG PO ×3 (01:01→23:40)
[2025-01-01] MEDS: VANCOCIN 530 MG IV (05:30)
[2025-01-01 06:19] LABS: Hematocrit 26.5 % (39.0-52.0); Hemoglobin 9.0 g/dL (13.0-18.0); Mean Corp Hgb Conc. 34.0 g/dL (33.0-37.0); Mean Corpuscular Volume 87.7 fL (80.0-94.0); Platelet Count 618 10^3/uL (130-400); Red Cell Dist. Width 15.3 % (11.5-14.5)
[2025-01-01 06:39] LABS: Blood Urea Nitrogen 8 mg/dl (9-20); Calcium 8.0 mg/dl (8.4-10.2); Carbon Dioxide 30 mmol/L (22-30); Chloride 104 mmol/L (98-107); Estimated Creatinine Clearance > 125 ml/min; Glucose 93 mg/dl (70-99); Potassium 3.8 mmol/L (3.5-5.1); Sodium 137 mmol/L (135-145); eGFR > 60.00
[2025-01-01] MEDS: MAGNESIUM OXIDE 500 MG PO (07:38)
[2025-01-01] MEDS: ALDACTONE 25 MG PO (07:39)
[2025-01-01] MEDS: VITAMIN B1 100 MG PO (07:39)
[2025-01-01] MEDS: SUBUTEX 16 MG SL (07:39)
[2025-01-01] MEDS: COREG 25 MG PO ×2 (07:39→20:25)
[2025-01-01] MEDS: LOW STRENGTH ASPIRIN 81 MG PO (07:39)
[2025-01-01] MEDS: THERAGRAN 1 TABLET PO (07:40)
[2025-01-01] MEDS: CATAPRES 0.3 MG PO ×4 (07:40→22:48)
[2025-01-01] MEDS: TYLENOL PO (07:40)
[2025-01-01] MEDS: LASIX 40 MG IV (07:41)
[2025-01-01] MEDS: DESENEX/MITRAZOL/ZEASORB 1 APPLIC TOPICAL ×2 (07:50→20:33)
--- NOTE | 2025-01-01 09:10 | PHA.VAN.FU ---
Addendum entered and electronically signed by Yumiko Hirsch RPH 01/01/25 11:33:
Suspect trough was drawn while dose was infusion based on increase in value following change to Q24H interval from Q12H.
Agree with repeat trough in AM to assess current regimen.
Original Note:
Vancomycin Assessment / Plan
- Assessment
Renal Function: Stable
WBC's are: WNL
In the past 24 hrs, patient has been: Afebrile
Concomitant Antimicrobials: nafcillin
- Assessment - Therapeutic Drug Monitoring
Peak level was drawn: Appropriately (drawn ~2.5H after the END of infusion)
Trough Drawn: While dose was infusing (dose charted at 0530, level drawn at 0552)
Levels were drawn: At steady state
Cannot extrapolate patient-specific PK, as the trough was drawn 22 minutes after the infusion was documented as started
- Dosing Plan
Continue: 1500mg q24h
- Monitoring Plan
Trough Level: 01/02 0530
- Follow Up
Pharmacy will continue to follow.
Vancomycin Follow UP
- -
Patient Age: 39
Patient Sex: Male
Vancomycin Day #: 30
Indication: Bacteremia
Requesting Provider: Dr. Fofana / Teto
Pertinent Antimicrobial Allergies:
NKDA
Height / Weight:
Height 6 ft 2 in
Actual Weight 86.863 kg
IBW in k.2
Pertinent Past Medical History: IV JOCELIN
- Vital Signs / Lab Results
Temp Pulse Resp BP Pulse Ox
97.8 F 104 18 135/68 95
01/01/25 07:15 01/01/25 07:15 01/01/25 07:15 01/01/25 07:15 01/01/25 07:15
Lab Results - Hematology
12/30/24 12/31/24 01/01/25
04:59 04:12 05:51
WBC 6.5 7.2 7.3
Lab Results - Chemistry
12/29/24 12/30/24 12/31/24
10:50 04:59 04:12
BUN 8 L 9 10
Creatinine 0.8 0.8 0.8
Estimated Creat Clear > 125 > 125 > 125
01/01/25
05:51
BUN 8 L
Creatinine 0.7
Estimated Creat Clear > 125
Therapeutic Drug Monitoring
Vancomycin Peak 26.0 ug/ml (18-26) 12/31/24 09:30
Vancomycin Trough 19.8 ug/ml (5-20) 01/01/25 05:52
Random Vancomycin 13.9 ug/ml 12/21/24 03:53
--- NOTE | 2025-01-01 12:33 | W.PN.HOSP.TC ---
Today's Communication/Plan
-
Assessment / Plan
Assessment / Plan
General: No Apparent Distress, Comfortable and Conversant
HEENT: NormoCephalic, Moist mucous membranes, Atraumatic, poor dentition
Respiratory: Clear and Non Labored Respirations
Cardiac: S1/S2 and Regular Rhythm; No Rub or Gallop
GI: Soft, Non Tender, Non Distended and Normal Bowel Sounds
Musculoskeletal: No Edema, no deformity
: NO Balderas
Neuro: Awake, Alert, Nonfocal/grossly intact
Psych: Calm and Intact Judgment/Insight
Impression:
Patient is a 39-year-old male with a medical history of polysubstance abuse (skin popping with fentanyl) who was admitted after presentation with altered mental status. He was brought in by his parents with tremors and confusion. His mental status
abruptly declined and he was intubated for airway protection. CT brain showed possible left occipital lobe mass. His blood cultures are positive for MRSA. He was initially being managed in the ICU for treatment of encephalopathy and bacteremia.
Patient extubated. Now downgraded to general medical floors.
CT surgery recommending dental extraction while in the hospital and consider valve replacement during this admission.
status post 15 tooth extraction 01/04, follow-up CT surgeon recommendation regarding valve replacement.
Hemoglobin dropped again status post 2 more units of blood transfusion.
Repeat echocardiogram shows
1. Normal left ventricular size, wall thickness and systolic function. No regional wall motion abnormalities are seen.
2. Ejection fraction is 60-65% by visual assesment.
3. Trace mitral valve regurgitation. Mobile echodensity consistent with known endocarditis seen near the mitral valve posterior leaflet annulus.
4. Moderate circumferential pericardial effusion without evidence of tamponade physiology.
5. Compared to a prior echo from December 14 2024, which was reviewed, there is now a moderate pericardial effusion, findings are otherwise similar.
6. Fair image quality.
KELI 12/29/2024: EF 65%, moderate in size partially mobile echodensity attached to the mitral valve annulus and also at the posterior leaflet of P1/P2, eccentric jet of moderate MR present around echodensity/vegetation, moderate pericardial effusion
Pericardiocentesis tentatively planned for 01/01.
Assessment/plan:
Septic shock secondary to MRSA/MSSA bacteremia:
- Off vasopressors and downgraded to general medical floors
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
- Afebrile since 12/11, leukocytosis resolved
- Transesophageal echocardiogram 12/06 showed large mitral annulus vegetation
- ID following, continue antibiotics with vancomycin and nafcillin, repeat cultures negative since 12/13
- Continue antibiotics with vancomycin and nafcillin through 01/23/2025 (6 weeks from sterile cultures on 12/13)
- status post 15 tooth extraction 12/25, follow-up CT surgeon recommendation regarding valve replacement
- Repeat KELI 12/29 showed moderately sized partially mobile echodensity attached to the mitral valve annulus and also the posterior leaflet of P1/P2, also showed moderate pericardial effusion
- Pericardiocentesis tentatively planned for today 01/01
Polysubstance abuse:
- Long history of injection drug abuse
- Now doing well with initiation of buprenorphine treatment, currently 16 mg sublingual daily and 4 mg at night
- Will need coordination with [facility] at time of hospital discharge
Anemia requiring transfusion
- Slowly downtrending hemoglobin over the course of his hospitalization, was transfused 1 unit PRBCs for hemoglobin of 7.2 on 12/19
- Transfused a second unit PRBCs 12/21 for hemoglobin 6.9, hemoglobin appropriately improved, remains stable around 7.5
- No evidence of active bleeding, suspect due to ongoing infection and frequent blood draws, will attempt to limit blood draws
- Hemoglobin again dropped below 7.0 on 12/27 and 12/28, he was transfused 2 additional units of PRBCs at that time with subsequent improvement in hemoglobin
- Currently stable, Will monitor
Acute hypoxic respiratory failure.
Ventilation dependent respiratory failure.
12/13
Patient extubated
Acute toxic metabolic encephalopathy:
- EEG with no acute epileptiform activity captured
- Encephalopathy likely multifactorial due to bacteremia, opiate withdrawal, and and suspected septic emboli to brain
- MRI brain consistent with suspicion for septic emboli, repeat CT brain shows stable findings
- Now resolved, patient at baseline mental status, extubated 12/13
Left upper extremity DVT involving brachial vein
Given his multiple scattered acute infarctions with microhemorrhages, patient is high risk for ICH if systemic anticoagulation started
PICC line removed repeat ultrasound shows left brachial vein nonocclusive DVT.
continue subcu heparin.
Hypomagnesemia:
- Resolved, monitor
LE:
- Resolved
Hypokalemia:
- Resolved
- Monitor
Rhabdomyolysis:
- Resolved
Elevated LFTs:
- Suspect due to severe sepsis
- Resolved, monitor with treatment as above
Pancreatitis:
- Resolved
Lactic acidosis:
- Resolved, continue to monitor
CODE STATUS: Full code
DVT prophylaxis: Subcu heparin
Diet: Regular diet
Disposition: Pericardiocentesis tentatively planned for 01/01.
Total time spent on today's encounter was 45 minutes which included time spent in counseling the patient/family regarding diagnosis and treatment plan as listed above, goals of care, and symptom management. Case was discussed with nursing staff,
specialists, and care coordinators/case management. All labs and imaging personally reviewed by me. Remainder the time spent in detailed review of previous records, lab data, imaging, and other medical provider documentation.
Anticipated Discharge: > 48 hours
Subjective/Interval History
-
Date of Service: January 01, 2025
Patient was seen and examined at bedside this morning. Feeling stronger and able to ambulate with more independence.
Objective Data
-
Labs:
Laboratory Results
01/01/25
05:51
WBC 7.3
Hgb 9.0 L
Hct 26.5 L
Plt Count 618 H
Sodium 137
Potassium 3.8
Chloride 104
Carbon Dioxide 30
BUN 8 L
Creatinine 0.7
Glucose 93
Calcium 8.0 L
Vital Signs:
Vital Signs
Temp Pulse Resp BP Pulse Ox
97.8 F 104 18 135/68 97
01/01/25 07:15 01/01/25 07:15 01/01/25 07:15 01/01/25 07:15 01/01/25 07:40
I&O
12/31/24 01/01/25 01/02/25
06:59 06:59 06:59
Intake Total 1814 / 1814 1094 / 1094
Output Total 1400 / 1400 3225 / 3225 900 / 900
Balance -1400 / -1400 -1411 / -1411 194 / 194
Review of Systems
-
History Source: Patient
All other systems: Reviewed and negative
Physical Exam
-
General: No Apparent Distress
--- NOTE | 2025-01-01 13:23 | CM ---
Chart reviewed. Patient for pericardiocentesis today
Transfer to IVU
--- NOTE | 2025-01-01 13:29 | W.PN.ID1 ---
Date of Service
Date of Service: January 01, 2025
Today's Communication
Continue Vancomycin,
Follow pericardiocentesis fluid cx.
Assessment / Plan
# Complicated Staphylococcus aureus (MRSA/MSSA) bacteremia
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
# Multiple embolic CVA
#New dx of hepatitis C infection: Hepatitic C Ab positive; HCV RNA 2,190,000
# LUE PICC associated DVT, PICC dc'd 12/14
# Fever and leukocytosis resolved
# s/p Intubated 12/03, extubated 12/12/24
# Polysubstance abuse (cocaine and fentanyl 'muscle-ling')
# hx MRSA wound abscesses (2010)
# hx of Viridans strep bacteremia (2010)
# New dx of hepatitis C infection: Hepatitic C Ab positive; HCV RNA 2,190,000
- 12/14 repeat TTE: 1.6 x 2 cm echodensity MV
- 12/12/24 Last positive Blood cx MRSA
- 12/13/24 forward, negtive blood cx's.
- 12/14/24 PICC D/C'ed; tip cx without growth
- HIV screen negative.
- Hepatitic C Ab positive; HCV RNA 2,190,000
- Persistent anemia requring pRBC transfusion
For TTE, then eventual KELI per cardiology
- 12/25 s/p 15 tooth extractions
-12/29 Repeat KELI MV vegetation smaller, but mitrar regurgitation worse, new moderate pericardial effusion.
- 01/01 s/p pericardiocentesis, cx pendong
- There is discrepancy between blood cx PCR (identified as MRSA) and phenotype (identified as MSSA)
Cefoxitin induced test negative. PBP2a negative.
Discussed with S. aureus experts.
Best to treat as both MRSA and MSSA since there are only few publications regarding this particular strain of S. aureus.
-> Continue IV Vancomycin and Nafcillin 2g IV q4h (both crosses blood-brain barrier), 6 weeks of IV antibiotics from negative blood cx, through 01/23/2025
- Monitor renal function and LFT's while on nafcillin.
- Close monitoring of vancomycin levels to prevent nephrotoxicity. Appreciate pharmacists.
- Eventual referral to radiosonde operator for HCV treatment.
Chief Complaint
-: Bacteremia and Other (embolic CVA)
Subjective / Review of Systems
Feels well overall. No complaints.
Vital Signs / Physical Exam
Vital Signs
Vital Signs
Temp Pulse Resp BP Pulse Ox
97.8 F 104 18 135/68 97
01/01/25 07:15 01/01/25 07:15 01/01/25 07:15 01/01/25 07:15 01/01/25 07:40
Physical Exam
Constitutional: No Acute Distress and Comfortable
Eyes: No Conjunctival Hemorrhage and Sclera Anicteric
Cardiovascular: Regular Rate and S1/S2
Pulmonary: Clear
Gastrointestinal: Soft, Non Tender, Non Distended and Normal Bowel Sounds
Extremities: Negative Edema
Neurological: AO x 3
Lines: PICC (RUE no erythema)
Objective Data
Lab Data
Lab Results
01/01/25 05:51
01/01/25 05:51
PT 15.1 Sec (11.4-14.6) H 12/26/24 06:08
INR 1.16 12/26/24 06:08
APTT 30.9 Sec (23.4-35.0) 12/26/24 06:08
Estimated Creat Clear > 125 ml/min 01/01/25 05:51
Lactic Acid 1.3 mmol/L (0.7-2.0) 12/05/24 16:46
Total Bilirubin 0.8 mg/dl (0.2-1.3) 12/26/24 06:08
AST 21 U/L (17-59) 12/26/24 06:08
ALT 13 U/L (0-50) 12/26/24 06:08
Alkaline Phosphatase 103 U/L (38-126) 12/26/24 06:08
Amylase 139 U/L (30-110) H 12/05/24 04:04
Most recent labs reviewed.
Micro Results:
01/01/25 11:21 Acid Fast Bacilli Smear - Pending
Pericardial Fluid Acid Fast Bacilli Culture - Pending
01/01/25 11:21 Body Fluid Culture - Pending
Pericardial Fluid Gram Stain - Pending
01/01/25 11:21 Gram Stain - Pending
Pericardial Fluid
01/01/25 11:21 Fungal Culture - Pending
Pericardial Fluid
01/01/25 11:23 Fungal Smear - Pending
Pericardial Fluid
12/17/24 07:12 Blood Culture - Final
Blood/Venous No Growth - Final Report
12/16/24 03:40 Blood Culture - Final
Blood/Venous No Growth - Final Report
12/15/24 04:33 Blood Culture - Final
Blood/Venous No Growth - Final Report
12/14/24 16:37 Blood Culture - Final
Blood/Venous No Growth - Final Report
12/12/24 03:10 Blood Culture - Final
Blood/Venous Staph aureus MRSA
Gram Stain - Final
12/13/24 04:07 Blood Culture - Final
Blood/Venous No Growth - Final Report
12/14/24 12:53 Catheter Tip Culture - Final
Picc No Growth After 72 Hours
12/09/24 03:54 Blood Culture - Final
Blood/Venous Staph aureus MRSA
Gram Stain - Final
12/08/24 03:02 Blood Culture - Final
Blood/Venous Staph aureus MRSA
Gram Stain - Final
12/11/24 03:33 Blood Culture - Final
Blood/Venous No Growth - Final Report
12/10/24 03:14 Blood Culture - Final
Blood/Venous No Growth - Final Report
12/07/24 04:06 Blood Culture - Final
Blood/Venous Staph aureus MRSA
Gram Stain - Final
12/03/24 08:20 Blood Culture - Final
Blood/Venous Staph aureus MRSA
Gram Stain - Final
12/03/24 09:21 Blood Culture - Final
Blood/Venous Staph aureus MRSA
Gram Stain - Final
12/05/24 16:46 Blood Culture - Final
Blood/Venous Staph aureus MRSA
Gram Stain - Final
12/05/24 13:38 Blood Culture - Final
Blood/Venous Staph aureus MRSA
Gram Stain - Final
12/03/24 08:38 Urine Culture - Final
Urine S aureus-Methicillin Sensitive
12/03/24 18:44 MRSA Screen - Final
Nose No Methicillin Resistant Staphylococcus aureus isolated.
Imaging:
12/05/24 CT a/p: Mild inflammatory change adjacent to the body and tail of the pancreas, suggestive of mild pancreatitis. No peripancreatic fluid collection appreciated. No evidence of intestinal obstruction or bowel inflammatory process. Study is
slightly limited by lack of intravenous or oral contrast. Gallbladder sludge without evidence of acute cholecystitis. No radiopaque gallstones are seen.
12/04/24 MRI brain: Numerous scattered acute infarctions in a distribution that is most suggestive of embolic phenomenon in the setting of known IV drug abuse. Multiple small microhemorrhages are also demonstrated.
12/03/24 CXR: Clear lungs.
12/03/[address]: Possible cortical petechial hemorrhages in the left frontal lobe and left occipital lobe. Possible small old infarct, periventricular small vessel ischemic disease or edema due to underlying mass in the left occipital lobe.
--- NOTE | 2025-01-01 13:30 | PTCARENOTE ---
received patient from research laboratory manager. AAOx3- denies pain. mid sternum pericardial drain- site CDI, draining serosangious draininge. ST on telemetry heat rate 100-110s. pulses palpable. +2 pitting edema in lower extremities. 98% on room air, lung sounds
clear. active bowel sounds. voiding without difficulty. right upper arm dual lumen picc intact. see worklist for full nursing assesssment and interventions.
[2025-01-01] MEDS: NAFCIL IV (13:51)
--- NOTE | 2025-01-01 14:13 | ITS.CL.CATH ---
Sustainable Design Coordinator - Catheterization
Cardiac Catheterization
Procedure Report:
PERICARDIOCENTESIS REPORT
DATE: January 01, 2025
REFERRING: Dr. Cornel Bridges
INDICATIONS: Endocarditis with new pericardial effusion
PROCEDURAL DETAILS: Echocardiographic images were reviewed prior to the procedure and discussed with Dr. Bridges following the KELI last week. Informed consent was obtained. A subxiphoid approach was utilized to gain access to the pericardial
space using a micropuncture needle. Bloody fluid was retrieved obtained agitated saline contrast was injected while the apical cardiographic images were being obtained. Bubble contrast was isolated in the pericardial space. The micropuncture
guidewire was advanced to the pericardial space through the beveled needle. The needle was removed and the access was slowly dilated with eventual placement of a 6 Togolese sheath in the pericardial space. A J tipped guidewire was then advanced to
the pericardial space and the initial intra pericardial pressure measured around 19 mmHg. Between 350 and 400 mL of bloody pericardial fluid was removed. The echocardiogram revealed that the pericardial effusion was diminished as the fluid was
removed. At the conclusion of the procedure a residual posterior effusion persisted and the intrapericardial pressure now measured 8 mmHg. The 6 Togolese sheath and pigtail catheter were sewn in position.
RADIATION SUMMARY: Fluoro Time (min): 0.5, Dose (mGy): 5.6, DAP (Gy.cm2) : 0.8
CONCLUSIONS:
1. Successful echocardiographic guided pericardiocentesis with removal of 350 to 400 mL of bloody pericardial fluid
RECOMMENDATIONS:
1. The pigtail catheter will be left in position until the pericardial drainage slows to 25 to 35 mL daily
Copy to: Dr. Cornel Bridges
[2025-01-01] MEDS: TYLENOL 650 MG PO (16:19)
[2025-01-01 17:33] LABS: Body Fluid Granulocytes 18 %
[2025-01-01 17:59] LABS: Body Fluid Second Tech BGK
--- NOTE | 2025-01-01 21:48 | PTCARENOTE ---
Patient received at change of shift resting in the bed. Pericardial drain intact with sanguinous output. The patient reports some mild discomfort at the insertion site but this is presently tolerable for him. Sinus tachy on the monitor. Oxygen
saturation 98% on room air. Family at bedside. RUE Double Lumen PICC intact. Plan of care discussed. Call cintron within reach. Care ongoing.
[2025-01-01] MEDS: SUBUTEX 4 MG SL (22:48)
[2025-01-01] MEDS: MELATONIN 10 MG PO (22:48)
[2025-01-02] VITALS (8 sets, daily range): BP systolic 115–142; BP diastolic 71–95; BMI 24.8
[2025-01-02] MEDS: NAFCIL 108 MG IV ×6 (01:54→21:08)
[2025-01-02 05:43] LABS: Hematocrit 27.2 % (39.0-52.0); Hemoglobin 9.3 g/dL (13.0-18.0); Mean Corp Hgb Conc. 34.2 g/dL (33.0-37.0); Mean Corpuscular Volume 88.9 fL (80.0-94.0); Platelet Count 624 10^3/uL (130-400); Red Cell Dist. Width 15.4 % (11.5-14.5)
[2025-01-02 05:49] LABS: Blood Urea Nitrogen 10 mg/dl (9-20); Calcium 8.0 mg/dl (8.4-10.2); Carbon Dioxide 30 mmol/L (22-30); Chloride 103 mmol/L (98-107); Estimated Creatinine Clearance > 125 ml/min; Glucose 94 mg/dl (70-99); Potassium 3.8 mmol/L (3.5-5.1); Sodium 135 mmol/L (135-145); eGFR > 60.00
[2025-01-02] MEDS: VANCOCIN 530 MG IV (06:16)
[2025-01-02] MEDS: SUBUTEX 16 MG SL (08:58)
[2025-01-02] MEDS: VITAMIN B1 100 MG PO (08:59)
[2025-01-02] MEDS: TYLENOL 1000 MG PO ×2 (08:59→16:24)
[2025-01-02] MEDS: CATAPRES 0.3 MG PO ×4 (08:59→22:03)
[2025-01-02] MEDS: LASIX 40 MG IV (09:00)
[2025-01-02] MEDS: COREG 25 MG PO ×2 (09:00→19:50)
[2025-01-02] MEDS: ALDACTONE 25 MG PO (09:00)
[2025-01-02] MEDS: THERAGRAN 1 TABLET PO (09:00)
[2025-01-02] MEDS: LOW STRENGTH ASPIRIN 81 MG PO (09:00)
[2025-01-02] MEDS: HEPARIN 5000 UNITS SC ×2 (09:01→16:25)
[2025-01-02] MEDS: MAGNESIUM OXIDE 500 MG PO (09:02)
[2025-01-02] MEDS: DESENEX/MITRAZOL/ZEASORB 1 APPLIC TOPICAL (09:02)
[2025-01-02] MEDS: FLUSH (NSS) 2 FLUSH IV ×2 (09:06→18:09)
--- NOTE | 2025-01-02 09:55 | PHA.VAN.FU ---
Addendum entered and electronically signed by Yumiko Hirsch [facility] 01/02/25 10:15:
Agree with assessment and plan
Original Note:
Vancomycin Assessment / Plan
- Assessment
Renal Function: Stable
WBC's are: WNL
In the past 24 hrs, patient has been: Afebrile
Concomitant Antimicrobials: nafcillin
- Assessment - Therapeutic Drug Monitoring
Extrapolated Cmax (mcg/mL): 29.3
Peak level was drawn: Appropriately (drawn ~2.65H after END of infusion)
Extrapolated Cmin (mcg/mL): 10.5
Trough Drawn: Appropriately
Levels were drawn: At steady state
Calculated AUC (mcg*h/mL): 442
Calculated ke: 0.0457
Calculated half life (H): 15.2
Calculated Vd (L): 74.18
Calculated Vanc CL (ml/min): 56.49
Note: Peak and trough were drawn from different dosing intervals as trough was drawn while dose infusing yesterday
Levels extrapolated as if they were drawn from the same dosing interval for above calculations
- Dosing Plan
Continue: 1500mg q24h
- Monitoring Plan
No level(s) ordered at this time: consider in the next few days
- Follow Up
Pharmacy will continue to follow.
Vancomycin Follow UP
- -
Patient Age: 39
Patient Sex: Male
Vancomycin Day #: 31
Indication: Bacteremia
Requesting Provider: Dr. Fofana / Teto
Pertinent Antimicrobial Allergies:
NKDA
Height / Weight:
Height 6 ft 2 in
Actual Weight 87.7 kg
IBW in k.2
Pertinent Past Medical History: IV JOCELIN
- Vital Signs / Lab Results
Temp Pulse Resp BP Pulse Ox
98.4 F 103 18 142/95 98
01/02/25 07:44 01/02/25 09:00 01/02/25 07:44 01/02/25 09:00 01/02/25 07:44
Lab Results - Hematology
12/31/24 01/01/25 01/02/25
04:12 05:51 05:05
WBC 7.2 7.3 7.3
Lab Results - Chemistry
12/31/24 01/01/25 01/02/25
04:12 05:51 05:05
BUN 10 8 L 10
Creatinine 0.8 0.7 0.7
Estimated Creat Clear > 125 > 125 > 125
Microbiology Results
01/01/25 11:21 Gram Stain - Preliminary
Pericardial Fluid
01/01/25 11:23 Fungal Smear - Final
Pericardial Fluid No yeast or fungal elements seen.
01/01/25 11:21 Fungal Culture - Preliminary
Pericardial Fluid Culture in progress.
Positive cultures are reported as soon as detected.
Final report to follow in four to five weeks.
Therapeutic Drug Monitoring
Vancomycin Peak 26.0 ug/ml (18-26) 12/31/24 09:30
Vancomycin Trough 10.7 ug/ml (5-20) 01/02/25 05:05
Random Vancomycin 13.9 ug/ml 12/21/24 03:53
[2025-01-02] MEDS: FLUSH (NSS) 1 FLUSH IV (10:35)
--- NOTE | 2025-01-02 11:50 | PTCARENOTE ---
received patient this am in bed watching TV. patient maintained on contact precautions. patient has restrictions on both upper extremities. patient has dual lumen PICC line in RUE, unable to flush , vascular access team notified and flushed both
lumens. patient has pericardial drain, no drainage noted from previous shift which was marked. monitor shows NST, VSS. patient has generalized anasarca. patient able to use rolling walker to ambulated to BR, rose. well.
--- NOTE | 2025-01-02 12:43 | W.PN.CARDCBS ---
Addendum entered and electronically signed by Cristobal Rivera MD 01/02/25 17:43:
I saw and examined the patient on morning rounds.
The Bee Robber's note was reviewed and I agree with the note.
Comment: Briefly, 39-year-old man with past medical history of IV DU who presented with CVA due to septic emboli and was found to have MSSA bacteremia and subsequently mitral valve endocarditis.
KELI 12/29/24 showed worsening mitral digitation and moderate pericardial effusion which is new
Patient underwent pericardiocentesis on 01/01/2025. Output from pericardial drain has tapered off and can likely be removed tomorrow.
Overall volume status appears reasonable on exam, would continue current daily Lasix/Aldactone dosing
For now continues on IV antibiotics and pending clinical course may require mitral valve debridement and repair - CT surgery following
Discussed with nursing
Original Note:
Today's Communication / Plan
-
s/p pericardiocentesis 01/01. continue drain, monitor output, likely remove in AM
continue IV lasix
continue abx
Impression / Plan
-
PCP: None prior to admission
Primary Director Of Learning: none prior to admission
Impression:
Presentation with change in mental status 12/03/24
Sepsis
Septic emboli by brain MRI
MSSA bacteremia
Pancreatitis
TME
VDRF
LE
Rhabdomyolysis
Elevated LFTs
Thrombocytopenia
Anemia, possibly hemolytic
Pericardial effusion s/p pericardiocentesis 01/01/25
IVDA since age 19
Vaping
Hypokalemia
Acute HFpEF
LUE DVT
Dental extractions, 15 teeth removed as an inpatient on 12/25/2024
ECHO 12/04/2024: EF 55 to 60%, no regional wall motion abnormalities noted, no evidence of vegetation seen
KELI 12/07/2024: EF 65%, large endocarditis/vegetations attached to mitral annulus measuring ~1x1cm each, mild MR, no Tricuspid or aortic vegetations
Echo 12/14/2024: EF 60-65%, thick echodensity of mitral annulus 1.6x20 cm, trace MR
Echo 12/27/2024: EF 60-65%, trace MR, mobile echodensity consistent with known endocarditis seen near the mitral valve posterior leaflet annulus, moderate circumferential pericardial effusion without evidence of tamponade physiology
KELI 12/29/2024: EF 65%, moderate in size partially mobile echodensity attached to the mitral valve annulus and also at the posterior leaflet of P1/P2, eccentric jet of moderate MR present around echodensity/vegetation, moderate pericardial effusion
Plan:
-Admitted with confusion and generalized weakness, changes in urine output and back pain. Then developed VDRF in the setting of sepsis, septic shock, TME, brain lesions concerning for embolic disease and rhabdo.
-KELI 12/07/2024 noted evidence of large endocarditis/vegetations attached to the mitral annulus. Continues on IV nafcillin and vanco through 01/23/25 per ID
-Underwent repeat KELI 12/29 as above with improvement in the size of the echodensity on the mitral valve, however mitral regurgitation now worsened and moderate pericardial effusion noted.
-Plan is to continue antibiotics and reassess as OP with CT surgery to discuss optimal plan for surgery.
-underwent pericardiocentesis for ~350 cc on 01/01, bloody. cytology pending. pericardial drain in place, follow output, likely for removal in AM
-Hgb has been intermittently dropping throughout admission requiring transfusions. s/p 4 units PRBCs this admission, most recently 12/28. Hgb stable at 9.3.
-Not on OAC due to risk of hemorrhage with septic emboli on MRI of brain earlier in admission despite LUE DVT.
-He is s/p 15 dental extractions 12/25.
-Continue IV lasix 40mg daily. Creat stable at 0.8. Weight down to 193lbs and he reports significant improvement in swelling
-New to Coreg 25mg BID, spironolactone 25mg daily, and clonidine 0.3mg daily this admission.
-d/w patient and mother at bedside
-d/w CT surgery GENERAL DENTIST
Progress Note - Director Of Learning
Subjective
Date of Service: January 02, 2025
denies CP, SOB, palpitations. reports improvement in LE edema.
Objective
Labs:
01/02/25 05:05
01/02/25 05:05
Labs
Hgb 9.3 g/dL (13.0-18.0) L 01/02/25 05:05
Hct 27.2 % (39.0-52.0) L 01/02/25 05:05
Plt Count 624 10^3/uL (130-400) H 01/02/25 05:05
PT 15.1 Sec (11.4-14.6) H 12/26/24 06:08
INR 1.16 12/26/24 06:08
APTT 30.9 Sec (23.4-35.0) 12/26/24 06:08
Sodium 135 mmol/L (135-145) 01/02/25 05:05
Potassium 3.8 mmol/L (3.5-5.1) 01/02/25 05:05
BUN 10 mg/dl (9-20) 01/02/25 05:05
Creatinine 0.7 mg/dL (0.7-1.3) 01/02/25 05:05
Glucose 94 mg/dl (70-99) 01/02/25 05:05
Vital Signs and I&O:
Vital Signs
Temp Pulse Resp BP Pulse Ox
99.1 F 94 16 142/95 98
01/02/25 11:18 01/02/25 11:18 01/02/25 11:18 01/02/25 09:00 01/02/25 11:18
Vital Signs
Temp Pulse Resp BP Pulse Ox
99.1 F 94 16 142/95 98
01/02/25 11:18 01/02/25 11:18 01/02/25 11:18 01/02/25 09:00 01/02/25 11:18
Intake & Output
12/31/24 01/01/25 01/02/25 01/03/25
07:59 07:59 07:59 07:59
Intake Total 1334 / 1334 1574 / 1574 1500 / 1500 108 / 108
Output Total 3625 / 3625 1900 / 1900 450 / 450
Balance -2291 / -2291 -326 / -326 1050 / 1050 108 / 108
Physical Exam
Physical Exam
GEN: No distress, awake, alert, oriented x3
HEENT: supple, anicteric, mmm, eomi
LUNGS: CTA B/L, no wheezes/rales
CV: Reg, S1/S2, 2/6 murmur
ABD: soft, BS+, NT/ND
EXT: No cyanosis, clubbing. 1+ edema of B/L LE
NEURO: Gross non-focal
SKIN: Warm, pink, dry. No rash. Pericardial drain in place
--- NOTE | 2025-01-02 13:44 | W.PN.HOSP.TC ---
Today's Communication/Plan
-
Assessment / Plan
Assessment / Plan
General: No Apparent Distress, Comfortable and Conversant
HEENT: NormoCephalic, Moist mucous membranes, Atraumatic, poor dentition
Respiratory: Clear and Non Labored Respirations
Cardiac: S1/S2 and Regular Rhythm; No Rub or Gallop
GI: Soft, Non Tender, Non Distended and Normal Bowel Sounds
Musculoskeletal: No Edema, no deformity
: NO Balderas
Neuro: Awake, Alert, Nonfocal/grossly intact
Psych: Calm and Intact Judgment/Insight
Impression:
Patient is a 39-year-old male with a medical history of polysubstance abuse (skin popping with fentanyl) who was admitted after presentation with altered mental status. He was brought in by his parents with tremors and confusion. His mental status
abruptly declined and he was intubated for airway protection. CT brain showed possible left occipital lobe mass. His blood cultures are positive for MRSA. He was initially being managed in the ICU for treatment of encephalopathy and bacteremia.
Patient extubated and downgraded to general medical floors.
CT surgery recommending dental extraction while in the hospital and consider valve replacement during this admission.
status post 15 tooth extraction 01/04, follow-up CT surgeon recommendation regarding valve replacement.
Hemoglobin dropped again, now status post 2 more units of blood transfusion.
Repeat echocardiogram shows
1. Normal left ventricular size, wall thickness and systolic function. No regional wall motion abnormalities are seen.
2. Ejection fraction is 60-65% by visual assesment.
3. Trace mitral valve regurgitation. Mobile echodensity consistent with known endocarditis seen near the mitral valve posterior leaflet annulus.
4. Moderate circumferential pericardial effusion without evidence of tamponade physiology.
5. Compared to a prior echo from December 14 2024, which was reviewed, there is now a moderate pericardial effusion, findings are otherwise similar.
6. Fair image quality.
KELI 12/29/2024: EF 65%, moderate in size partially mobile echodensity attached to the mitral valve annulus and also at the posterior leaflet of P1/P2, eccentric jet of moderate MR present around echodensity/vegetation, moderate pericardial effusion
Pericardiocentesis 01/01.
Assessment/plan:
Septic shock secondary to MRSA/MSSA bacteremia:
- Off vasopressors and downgraded to general medical floors
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
- Afebrile since 12/11, leukocytosis resolved
- Transesophageal echocardiogram 12/06 showed large mitral annulus vegetation
- ID following, continue antibiotics with vancomycin and nafcillin, repeat cultures negative since 12/13
- Continue antibiotics with vancomycin and nafcillin through 01/23/2025 (6 weeks from sterile cultures on 12/13)
- status post 15 tooth extraction 12/25, follow-up CT surgeon recommendation regarding valve replacement
- Repeat KELI 12/29 showed moderately sized partially mobile echodensity attached to the mitral valve annulus and also the posterior leaflet of P1/P2, also showed moderate pericardial effusion
- Pericardiocentesis yesterday 01/01 with approximately 350 cc of sanguinous output, and drain left in place, being monitored in the IVU
Pericardial effusion:
- Pericardiocentesis 01/01 with 350 cc of sanguinous output, drain in place, will likely remove drain tomorrow 01/03
Polysubstance abuse:
- Long history of injection drug abuse
- Now doing well with initiation of buprenorphine treatment, currently 16 mg sublingual daily and 4 mg at night
- Will need coordination with [facility] at time of hospital discharge
Anemia requiring transfusion
- Transfused 1 unit PRBCs for hemoglobin of 7.2 on 12/19, a second unit PRBCs 12/21 for hemoglobin 6.9, hemoglobin appropriately improved, remained stable around 7.5
- No evidence of active bleeding, suspect anemia is due to ongoing infection and frequent blood draws, will attempt to limit blood draws
- Hemoglobin again dropped below 7.0 on 12/27 and 12/28, he was transfused 2 additional units of PRBCs at that time with subsequent improvement in hemoglobin
- Currently stable, Will monitor
Acute hypoxic respiratory failure.
Ventilation dependent respiratory failure.
12/13
Patient extubated
Acute toxic metabolic encephalopathy:
- EEG with no acute epileptiform activity captured
- Encephalopathy likely multifactorial due to bacteremia, opiate withdrawal, and and suspected septic emboli to brain
- MRI brain consistent with suspicion for septic emboli, repeat CT brain shows stable findings
- Now resolved, patient at baseline mental status, extubated 12/13
Left upper extremity DVT involving brachial vein
Given his multiple scattered acute infarctions with microhemorrhages, patient is high risk for ICH if systemic anticoagulation started
PICC line removed repeat ultrasound shows left brachial vein nonocclusive DVT.
continue subcu heparin.
Hypomagnesemia:
- Resolved, monitor
LE:
- Resolved
Hypokalemia:
- Resolved
- Monitor
Rhabdomyolysis:
- Resolved
Elevated LFTs:
- Suspect due to severe sepsis
- Resolved, monitor with treatment as above
Pancreatitis:
- Resolved
Lactic acidosis:
- Resolved, continue to monitor
CODE STATUS: Full code
DVT prophylaxis: Subcu heparin
Diet: Regular diet
Total time spent on today's encounter was 55 minutes which included time spent in counseling the patient/family regarding diagnosis and treatment plan as listed above, goals of care, and symptom management. Case was discussed with nursing staff,
specialists, and care coordinators/case management. All labs and imaging personally reviewed by me. Remainder the time spent in detailed review of previous records, lab data, imaging, and other medical provider documentation.
Anticipated Discharge: > 48 hours
Subjective/Interval History
-
Date of Service: January 02, 2025
Patient was seen and examined at bedside this morning. He is now in IVU after pericardiocentesis with drain placement yesterday 01/01.
Objective Data
-
Labs:
Laboratory Results
01/02/25
05:05
WBC 7.3
Hgb 9.3 L
Hct 27.2 L
Plt Count 624 H
Sodium 135
Potassium 3.8
Chloride 103
Carbon Dioxide 30
BUN 10
Creatinine 0.7
Glucose 94
Calcium 8.0 L
Vital Signs:
Vital Signs
Temp Pulse Resp BP Pulse Ox
99.1 F 97 16 119/82 98
01/02/25 11:18 01/02/25 13:09 01/02/25 11:18 01/02/25 13:09 01/02/25 11:18
I&O
01/01/25 01/02/25 01/03/25
06:59 06:59 06:59
Intake Total 1814 / 1814 2594 / 2594 108 / 108
Output Total 3225 / 3225 1350 / 1350
Balance -1411 / -1411 1244 / 1244 108 / 108
Review of Systems
-
History Source: Patient
All other systems: Reviewed and negative
Physical Exam
-
General: No Apparent Distress
--- NOTE | 2025-01-02 14:30 | CM ---
Chart reviewed. Patient is independent of ADLS, live with his parents in a 2 [address], 2 NAVIN, 0 DME. Patient deconditioned from prolonged hospitalization requiring the use of RW. PT evaluation recommending Acute Rehab. Multiple referrals sent and
denied due to hx of IVDA. I spoke to the family and patient and they are agreeable to SNF. Referrals sent to [facility], [facility], [facility], [place] and [facility]. Patient will need IV antibiotics until 01/23 and plan is for him to come
back for an MVR. Plan is to go to rehab when medically stable. CM to follow
--- NOTE | 2025-01-02 16:38 | PTOTSP ---
Pt s/p pericardiocentesis on 01/01/25 and transferred to IVU post procedure. Will need new OT orders when stable for activity.
--- NOTE | 2025-01-02 18:36 | PTCARENOTE ---
no additional drainage noted in drain.
[2025-01-02] MEDS: DESENEX/MITRAZOL/ZEASORB TOPICAL (19:50)
--- NOTE | 2025-01-02 21:05 | PTCARENOTE ---
Patient received at change of shift resting in the bed. Pericardial drain site intact. The patient reports mild pain at the insertion site but this pain is tolerable for him and well controlled on current medications. Sinus tach to sinus rhythm on
telemetry. Oxygen saturation 97-98% on room air. RUE PICC line intact. Plan of care discussed. Call cintron within reach. Care ongoing.
[2025-01-02] MEDS: SUBUTEX 4 MG SL (22:04)
[2025-01-02] MEDS: MELATONIN 10 MG PO (22:04)
[2025-01-03] VITALS (9 sets, daily range): BP systolic 115–159; BP diastolic 74–97; PULSE 93; BMI 25.0
[2025-01-03] MEDS: TYLENOL 1000 MG PO ×3 (00:20→16:24)
[2025-01-03] MEDS: HEPARIN 5000 UNITS SC ×3 (00:21→16:24)
[2025-01-03] MEDS: NAFCIL 108 MG IV ×6 (01:07→22:55)
[2025-01-03] MEDS: VANCOCIN 530 MG IV (06:09)
--- NOTE | 2025-01-03 08:12 | PHA.VAN.FU ---
Addendum entered and electronically signed by Yumiko Hirsch [facility] 01/03/25 08:24:
Agree with assessment and plan
Original Note:
Vancomycin Assessment / Plan
- Assessment
Renal Function: No New Labs Today
In the past 24 hrs, patient has been: Afebrile
Concomitant Antimicrobials: nafcillin
- Dosing Plan
Continue: 1500mg q24h
- Monitoring Plan
No level(s) ordered at this time: consider within next few days
- Follow Up
Pharmacy will continue to follow.
Vancomycin Follow UP
- -
Patient Age: 39
Patient Sex: Male
Vancomycin Day #: 32
Indication: Bacteremia
Requesting Provider: Dr. Fofana / Teto
Pertinent Antimicrobial Allergies:
NKDA
Height / Weight:
Height 6 ft 2 in
Actual Weight 88.1 kg
IBW in k.2
Pertinent Past Medical History: IV JOCELIN
- Vital Signs / Lab Results
Temp Pulse Resp BP Pulse Ox
98.0 F 85 18 115/74 98
01/03/25 07:38 01/03/25 06:00 01/03/25 07:38 01/03/25 03:07 01/03/25 07:38
Lab Results - Hematology
01/01/25 01/02/25
05:51 05:05
WBC 7.3 7.3
Lab Results - Chemistry
01/01/25 01/02/25
05:51 05:05
BUN 8 L 10
Creatinine 0.7 0.7
Estimated Creat Clear > 125 > 125
Microbiology Results
01/01/25 11:21 Body Fluid Culture - Preliminary
Pericardial Fluid No Growth After 18-24 Hours
Gram Stain - Preliminary
01/01/25 11:23 Fungal Smear - Final
Pericardial Fluid No yeast or fungal elements seen.
01/01/25 11:21 Fungal Culture - Preliminary
Pericardial Fluid Culture in progress.
Positive cultures are reported as soon as detected.
Final report to follow in four to five weeks.
Therapeutic Drug Monitoring
Vancomycin Peak 26.0 ug/ml (18-26) 12/31/24 09:30
Vancomycin Trough 10.7 ug/ml (5-20) 01/02/25 05:05
Random Vancomycin 13.9 ug/ml 12/21/24 03:53
[2025-01-03] MEDS: ALDACTONE 25 MG PO (08:50)
[2025-01-03] MEDS: DESENEX/MITRAZOL/ZEASORB 1 APPLIC TOPICAL ×2 (08:51→20:52)
[2025-01-03] MEDS: CATAPRES 0.3 MG PO ×4 (08:51→22:53)
[2025-01-03] MEDS: COREG 25 MG PO ×2 (08:51→20:50)
[2025-01-03] MEDS: FLUSH (NSS) 2 FLUSH IV ×2 (08:52→11:21)
[2025-01-03] MEDS: LASIX 40 MG IV (08:52)
[2025-01-03] MEDS: VITAMIN B1 100 MG PO (08:53)
[2025-01-03] MEDS: SUBUTEX 16 MG SL (08:53)
[2025-01-03] MEDS: THERAGRAN 1 TABLET PO (08:53)
[2025-01-03] MEDS: LOW STRENGTH ASPIRIN 81 MG PO (08:53)
[2025-01-03] MEDS: MAGNESIUM OXIDE 500 MG PO (08:53)
--- NOTE | 2025-01-03 09:29 | W.PN.ID1 ---
Date of Service
Date of Service: January 03, 2025
Today's Communication
Continue VAnco/nafcillin.
Assessment / Plan
# Complicated Staphylococcus aureus (MRSA/MSSA) bacteremia
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
# Multiple embolic CVA
#New dx of hepatitis C infection: Hepatitic C Ab positive; HCV RNA 2,190,000
# LUE PICC associated DVT, PICC dc'd 12/14
# Fever and leukocytosis resolved
# s/p Intubated 12/03, extubated 12/12/24
# Polysubstance abuse (cocaine and fentanyl 'muscle-ling')
# hx MRSA wound abscesses (2010)
# hx of Viridans strep bacteremia (2010)
# New dx of hepatitis C infection: Hepatitic C Ab positive; HCV RNA 2,190,000
- 12/14 repeat TTE: 1.6 x 2 cm echodensity MV
- 12/12/24 Last positive Blood cx MRSA
- 12/13/24 forward, negtive blood cx's.
- 12/14/24 PICC D/C'ed; tip cx without growth
- HIV screen negative.
- Hepatitic C Ab positive; HCV RNA 2,190,000
- Persistent anemia requring pRBC transfusion
For TTE, then eventual KELI per cardiology
- 12/25 s/p 15 tooth extractions
-12/29 Repeat KELI MV vegetation smaller, but mitrar regurgitation worse, new moderate pericardial effusion.
- 01/01 s/p pericardiocentesis, cx neg to date
- There is discrepancy between blood cx PCR (identified as MRSA) and phenotype (identified as MSSA)
Cefoxitin induced test negative. PBP2a negative.
Discussed with S. aureus experts.
Best to treat as both MRSA and MSSA since there are only few publications regarding this particular strain of S. aureus.
- Continue IV Vancomycin and Nafcillin 2g IV q4h (both crosses blood-brain barrier), 6 weeks of IV antibiotics from negative blood cx, through 01/23/2025
- Monitor renal function and LFT's while on nafcillin.
- Close monitoring of vancomycin levels to prevent nephrotoxicity. Appreciate pharmacists.
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
Chief Complaint
-: Bacteremia and Other (embolic CVA)
Subjective / Review of Systems
No complaints. Hoping to get into SNF rehab.
Vital Signs / Physical Exam
Vital Signs
Vital Signs
Temp Pulse Resp BP Pulse Ox
98.0 F 95 18 144/92 98
01/03/25 07:38 01/03/25 08:51 01/03/25 07:38 01/03/25 08:51 01/03/25 07:38
Physical Exam
Constitutional: No Acute Distress and Comfortable
Cardiovascular: Regular Rate, S1/S2 and Other (pericardiocentesis drain with small amt bloody fluid)
Pulmonary: Clear
Gastrointestinal: Soft and Non Distended
Extremities: Negative Edema
Neurological: AO x 3
Lines: PICC
Objective Data
Lab Data
Lab Results
01/02/25 05:05
01/02/25 05:05
PT 15.1 Sec (11.4-14.6) H 12/26/24 06:08
INR 1.16 12/26/24 06:08
APTT 30.9 Sec (23.4-35.0) 12/26/24 06:08
Estimated Creat Clear > 125 ml/min 01/02/25 05:05
Lactic Acid 1.3 mmol/L (0.7-2.0) 12/05/24 16:46
Total Bilirubin 0.8 mg/dl (0.2-1.3) 12/26/24 06:08
AST 21 U/L (17-59) 12/26/24 06:08
ALT 13 U/L (0-50) 12/26/24 06:08
Alkaline Phosphatase 103 U/L (38-126) 12/26/24 06:08
Amylase 139 U/L (30-110) H 12/05/24 04:04
Most recent labs reviewed.
Micro Results:
01/01/25 11:21 Body Fluid Culture - Preliminary
Pericardial Fluid No Growth After 18-24 Hours
Gram Stain - Preliminary
01/01/25 11:23 Fungal Smear - Final
Pericardial Fluid No yeast or fungal elements seen.
01/01/25 11:21 Fungal Culture - Preliminary
Pericardial Fluid Culture in progress.
Positive cultures are reported as soon as detected.
Final report to follow in four to five weeks.
01/01/25 11:21 Acid Fast Bacilli Smear - Pending
Pericardial Fluid Acid Fast Bacilli Culture - Pending
12/17/24 07:12 Blood Culture - Final
Blood/Venous No Growth - Final Report
12/16/24 03:40 Blood Culture - Final
Blood/Venous No Growth - Final Report
12/15/24 04:33 Blood Culture - Final
Blood/Venous No Growth - Final Report
12/14/24 16:37 Blood Culture - Final
Blood/Venous No Growth - Final Report
12/12/24 03:10 Blood Culture - Final
Blood/Venous Staph aureus MRSA
Gram Stain - Final
12/13/24 04:07 Blood Culture - Final
Blood/Venous No Growth - Final Report
12/14/24 12:53 Catheter Tip Culture - Final
Picc No Growth After 72 Hours
12/09/24 03:54 Blood Culture - Final
Blood/Venous Staph aureus MRSA
Gram Stain - Final
12/08/24 03:02 Blood Culture - Final
Blood/Venous Staph aureus MRSA
Gram Stain - Final
12/11/24 03:33 Blood Culture - Final
Blood/Venous No Growth - Final Report
12/10/24 03:14 Blood Culture - Final
Blood/Venous No Growth - Final Report
12/07/24 04:06 Blood Culture - Final
Blood/Venous Staph aureus MRSA
Gram Stain - Final
12/03/24 08:20 Blood Culture - Final
Blood/Venous Staph aureus MRSA
Gram Stain - Final
12/03/24 09:21 Blood Culture - Final
Blood/Venous Staph aureus MRSA
Gram Stain - Final
12/05/24 16:46 Blood Culture - Final
Blood/Venous Staph aureus MRSA
Gram Stain - Final
12/05/24 13:38 Blood Culture - Final
Blood/Venous Staph aureus MRSA
Gram Stain - Final
12/03/24 08:38 Urine Culture - Final
Urine S aureus-Methicillin Sensitive
12/03/24 18:44 MRSA Screen - Final
Nose No Methicillin Resistant Staphylococcus aureus isolated.
Imaging:
12/05/24 CT a/p: Mild inflammatory change adjacent to the body and tail of the pancreas, suggestive of mild pancreatitis. No peripancreatic fluid collection appreciated. No evidence of intestinal obstruction or bowel inflammatory process. Study is
slightly limited by lack of intravenous or oral contrast. Gallbladder sludge without evidence of acute cholecystitis. No radiopaque gallstones are seen.
12/04/24 MRI brain: Numerous scattered acute infarctions in a distribution that is most suggestive of embolic phenomenon in the setting of known IV drug abuse. Multiple small microhemorrhages are also demonstrated.
12/03/24 CXR: Clear lungs.
12/03/[address]: Possible cortical petechial hemorrhages in the left frontal lobe and left occipital lobe. Possible small old infarct, periventricular small vessel ischemic disease or edema due to underlying mass in the left occipital lobe.
--- NOTE | 2025-01-03 11:09 | W.PN.CARDCBS ---
Addendum entered and electronically signed by Cristobal Rivera MD 01/03/25 13:13:
I saw and examined the patient.
The Veterans Services Specialist's note was reviewed and I agree with the note.
Comment: Briefly, 39-year-old man with past medical history of IV DU who presented with CVA due to septic emboli and was found to have MSSA bacteremia and subsequently mitral valve endocarditis.
KELI 12/29/24 showed worsening mitral digitation and moderate pericardial effusion which is new
Patient underwent pericardiocentesis on 01/01/2025. Output from pericardial drain has tapered off. Plan to remove later today.
Overall volume status appears reasonable on exam, would continue current daily Lasix/Aldactone dosing
For now continues on IV antibiotics and pending clinical course may require mitral valve replacement - CT surgery following
Discussed with nursing
Original Note:
Today's Communication / Plan
-
for pericardial drain removal
continue IV lasix
continue IV abx
Impression / Plan
-
PCP: None prior to admission
Primary Heater Worker: none prior to admission
Impression:
Presentation with change in mental status 12/03/24
Sepsis
Septic emboli by brain MRI
MSSA bacteremia
Pancreatitis
TME
VDRF
EL
Rhabdomyolysis
Elevated LFTs
Thrombocytopenia
Anemia, possibly hemolytic
Pericardial effusion s/p pericardiocentesis 01/01/25
IVDA since age 19
Vaping
Hypokalemia
Acute HFpEF
LUE DVT
Dental extractions, 15 teeth removed as an inpatient on 12/25/2024
ECHO 12/04/2024: EF 55 to 60%, no regional wall motion abnormalities noted, no evidence of vegetation seen
KELI 12/07/2024: EF 65%, large endocarditis/vegetations attached to mitral annulus measuring ~1x1cm each, mild MR, no Tricuspid or aortic vegetations
Echo 12/14/2024: EF 60-65%, thick echodensity of mitral annulus 1.6x20 cm, trace MR
Echo 12/27/2024: EF 60-65%, trace MR, mobile echodensity consistent with known endocarditis seen near the mitral valve posterior leaflet annulus, moderate circumferential pericardial effusion without evidence of tamponade physiology
KELI 12/29/2024: EF 65%, moderate in size partially mobile echodensity attached to the mitral valve annulus and also at the posterior leaflet of P1/P2, eccentric jet of moderate MR present around echodensity/vegetation, moderate pericardial effusion
Plan:
-Admitted with confusion and generalized weakness, changes in urine output and back pain. Then developed VDRF in the setting of sepsis, septic shock, TME, brain lesions concerning for embolic disease and rhabdo.
-KELI 12/07/2024 noted evidence of large endocarditis/vegetations attached to the mitral annulus. Continues on IV nafcillin and vanco through 01/23/25 per ID
-Underwent repeat KELI 12/29 as above with improvement in the size of the echodensity on the mitral valve, however mitral regurgitation now worsened and moderate pericardial effusion noted.
-Plan is to continue antibiotics and reassess as OP with CT surgery to discuss optimal plan for surgery.
-underwent pericardiocentesis for ~350 cc on 01/01, bloody. cytology pending. pericardial drain in place, with ~10 cc output overnight. will plan to remove today
-Hgb has been intermittently dropping throughout admission requiring transfusions. s/p 4 units PRBCs this admission, most recently 12/28. Hgb stable at 9.3 on 01/02.
-Not on OAC due to risk of hemorrhage with septic emboli on MRI of brain earlier in admission despite LUE DVT.
-He is s/p 15 dental extractions 12/25.
-Continue IV lasix 40mg daily. Creat stable at 0.8. Weight trending down and he reports significant improvement in swelling
-New to Coreg 25mg BID, spironolactone 25mg daily, and clonidine 0.3mg daily this admission.
-d/w nursing
Progress Note - Heater Worker
Subjective
Date of Service: January 03, 2025
feeling well.
Objective
Labs:
01/02/25 05:05
01/02/25 05:05
Labs
Hgb 9.3 g/dL (13.0-18.0) L 01/02/25 05:05
Hct 27.2 % (39.0-52.0) L 01/02/25 05:05
Plt Count 624 10^3/uL (130-400) H 01/02/25 05:05
PT 15.1 Sec (11.4-14.6) H 12/26/24 06:08
INR 1.16 12/26/24 06:08
APTT 30.9 Sec (23.4-35.0) 12/26/24 06:08
Sodium 135 mmol/L (135-145) 01/02/25 05:05
Potassium 3.8 mmol/L (3.5-5.1) 01/02/25 05:05
BUN 10 mg/dl (9-20) 01/02/25 05:05
Creatinine 0.7 mg/dL (0.7-1.3) 01/02/25 05:05
Glucose 94 mg/dl (70-99) 01/02/25 05:05
Vital Signs and I&O:
Vital Signs
Temp Pulse Resp BP Pulse Ox
98.0 F 95 18 144/92 98
01/03/25 07:38 01/03/25 08:51 01/03/25 07:38 01/03/25 08:51 01/03/25 07:38
Vital Signs
Temp Pulse Resp BP Pulse Ox
98.0 F 95 18 144/92 98
01/03/25 07:38 01/03/25 08:51 01/03/25 07:38 01/03/25 08:51 01/03/25 07:38
Intake & Output
01/01/25 01/02/25 01/03/25 01/04/25
07:59 07:59 07:59 07:59
Intake Total 1574 / 1574 1500 / 1500 1716 / 1716
Output Total 1900 / 1900 450 / 450 1810 / 1810
Balance -326 / -326 1050 / 1050 -94 / -94
Physical Exam
Physical Exam
GEN: No distress, awake, alert, oriented x3
HEENT: supple, anicteric, mmm, eomi
LUNGS: CTA B/L, no wheezes/rales
CV: Reg, S1/S2, 2/6 murmur
ABD: soft, BS+, NT/ND
EXT: No cyanosis, clubbing. 1+ edema of B/L LE
NEURO: Gross non-focal
SKIN: Warm, pink, dry. No rash. Pericardial drain in place
--- NOTE | 2025-01-03 11:22 | CM ---
Chart reviewed. Patient is independent of ADLS, lives with her parents in a 2 STH, 2 NAVIN, 0 DME. Patient with endocarditis needing IV antibiotics until 01/23. PT evaluation recommending Rehab. Referral sent to [facility],
[facility], [facility], [facility], [facility], [facility], [place], [place], [facility], [facility], [facility] all declined. CM to continue to send referrals. Plan is for the patient to go to Rehab
when medically stable. CM to follow
--- NOTE | 2025-01-03 11:53 | PTCARENOTE ---
Sitting at the side of the bed now eating a late breakfast, parents at the bedside visiting. Minimal drainage from pericardial drain, hopeful to have it removed this afternoon.
--- NOTE | 2025-01-03 14:05 | W.PN.HOSP.TC ---
Today's Communication/Plan
-
Assessment / Plan
Assessment / Plan
General: No Apparent Distress, Comfortable and Conversant
HEENT: NormoCephalic, Moist mucous membranes, Atraumatic, poor dentition
Respiratory: Clear and Non Labored Respirations
Cardiac: S1/S2 and Regular Rhythm; No Rub or Gallop, pericardial drain in place with minimal serosanguineous output
GI: Soft, Non Tender, Non Distended and Normal Bowel Sounds
Musculoskeletal: No Edema, no deformity
: NO Balderas
Neuro: Awake, Alert, Nonfocal/grossly intact
Psych: Calm and Intact Judgment/Insight
Impression:
Patient is a 39-year-old male with a medical history of polysubstance abuse (skin popping with fentanyl) who was admitted after presentation with altered mental status. He was brought in by his parents with tremors and confusion. His mental status
abruptly declined and he was intubated for airway protection. CT brain showed possible left occipital lobe mass. His blood cultures are positive for MRSA. He was initially being managed in the ICU for treatment of encephalopathy and bacteremia.
Patient extubated and downgraded to general medical floors.
CT surgery recommending dental extraction while in the hospital and consider valve replacement during this admission.
status post 15 tooth extraction 01/04, follow-up CT surgeon recommendation regarding valve replacement.
Hemoglobin dropped again, now status post 2 more units of blood transfusion.
Repeat echocardiogram shows
1. Normal left ventricular size, wall thickness and systolic function. No regional wall motion abnormalities are seen.
2. Ejection fraction is 60-65% by visual assesment.
3. Trace mitral valve regurgitation. Mobile echodensity consistent with known endocarditis seen near the mitral valve posterior leaflet annulus.
4. Moderate circumferential pericardial effusion without evidence of tamponade physiology.
5. Compared to a prior echo from December 14 2024, which was reviewed, there is now a moderate pericardial effusion, findings are otherwise similar.
6. Fair image quality.
KELI 12/29/2024: EF 65%, moderate in size partially mobile echodensity attached to the mitral valve annulus and also at the posterior leaflet of P1/P2, eccentric jet of moderate MR present around echodensity/vegetation, moderate pericardial effusion
Pericardiocentesis 01/01.
Assessment/plan:
Septic shock secondary to MRSA/MSSA bacteremia:
- Off vasopressors and downgraded to general medical floors
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
- Afebrile since 12/11, leukocytosis resolved
- Transesophageal echocardiogram 12/06 showed large mitral annulus vegetation
- ID following, continue antibiotics with vancomycin and nafcillin, repeat cultures negative since 12/13
- Continue antibiotics with vancomycin and nafcillin through 01/23/2025 (6 weeks from sterile cultures on 12/13)
- status post 15 tooth extraction 12/25, follow-up CT surgeon recommendation regarding valve replacement
- Repeat KELI 12/29 showed moderately sized partially mobile echodensity attached to the mitral valve annulus and also the posterior leaflet of P1/P2, also showed moderate pericardial effusion
- Pericardiocentesis 01/01 with approximately 350 cc of sanguinous output, drain left in place with minimal output, plan for drain removal later today, being monitored in the IVU
Pericardial effusion:
- Pericardiocentesis 01/01 with 350 cc of sanguinous output, drain in place, will plan for drain removal later today 01/03
Polysubstance abuse:
- Long history of injection drug abuse
- Now doing well with initiation of buprenorphine treatment, currently 16 mg sublingual daily and 4 mg at night
- Will need coordination with [facility] at time of hospital discharge
Anemia requiring transfusion
- Transfused 1 unit PRBCs for hemoglobin of 7.2 on 12/19, a second unit PRBCs 12/21 for hemoglobin 6.9, hemoglobin appropriately improved, remained stable around 7.5
- No evidence of active bleeding, suspect anemia is due to ongoing infection and frequent blood draws, will attempt to limit blood draws
- Hemoglobin again dropped below 7.0 on 12/27 and 12/28, he was transfused 2 additional units of PRBCs at that time with subsequent improvement in hemoglobin
- Currently stable, Will monitor
Acute hypoxic respiratory failure.
Ventilation dependent respiratory failure.
12/13
Patient extubated
Acute toxic metabolic encephalopathy:
- EEG with no acute epileptiform activity captured
- Encephalopathy likely multifactorial due to bacteremia, opiate withdrawal, and and suspected septic emboli to brain
- MRI brain consistent with suspicion for septic emboli, repeat CT brain shows stable findings
- Now resolved, patient at baseline mental status, extubated 12/13
Left upper extremity DVT involving brachial vein
Given his multiple scattered acute infarctions with microhemorrhages, patient is high risk for ICH if systemic anticoagulation started
PICC line removed repeat ultrasound shows left brachial vein nonocclusive DVT.
continue subcu heparin.
Hypomagnesemia:
- Resolved, monitor
LE:
- Resolved
Hypokalemia:
- Resolved
- Monitor
Rhabdomyolysis:
- Resolved
Elevated LFTs:
- Suspect due to severe sepsis
- Resolved, monitor with treatment as above
Pancreatitis:
- Resolved
Lactic acidosis:
- Resolved, continue to monitor
CODE STATUS: Full code
DVT prophylaxis: Subcu heparin
Diet: Regular diet
Total time spent on today's encounter was 57 minutes which included time spent in counseling the patient/family regarding diagnosis and treatment plan as listed above, goals of care, and symptom management. Case was discussed with nursing staff,
specialists, and care coordinators/case management. All labs and imaging personally reviewed by me. Remainder the time spent in detailed review of previous records, lab data, imaging, and other medical provider documentation.
Anticipated Discharge: > 48 hours
Subjective/Interval History
-
Date of Service: January 03, 2025
Patient was seen and examined at bedside this morning. Feeling well. Pericardial drain remains in place with minimal output.
Objective Data
-
Vital Signs:
Vital Signs
Temp Pulse Resp BP Pulse Ox
98.2 F 97 18 148/97 98
01/03/25 12:10 01/03/25 12:13 01/03/25 12:10 01/03/25 12:13 01/03/25 12:10
I&O
01/02/25 01/03/25 01/04/25
06:59 06:59 06:59
Intake Total 2594 / 2594 1716 / 1716 588 / 588
Output Total 1350 / 1350 1810 / 1810 550 / 550
Balance 1244 / 1244 -94 / -94 38 / 38
Review of Systems
-
History Source: Patient
All other systems: Reviewed and negative
Physical Exam
-
General: No Apparent Distress
--- NOTE | 2025-01-03 21:17 | PTCARENOTE ---
Pt rec'd at change of shift with parents at bedside. Right upper arm dual picc flushed. Purple port slightly sluggish but with good blood return. Lungs coarse, no cough. Sinus on telemetry. Plan of care discussed with pt.
[2025-01-03] MEDS: SUBUTEX 4 MG SL (22:54)
[2025-01-03] MEDS: MELATONIN 10 MG PO (22:54)
[2025-01-04] MEDS: HEPARIN 5000 UNITS SC ×4 (00:09→23:29)
[2025-01-04] MEDS: TYLENOL 1000 MG PO ×4 (00:09→23:29)
[2025-01-04] MEDS: NAFCIL 108 MG IV ×6 (02:30→22:48)
[2025-01-04 02:46] VITALS: BP 133/80
[2025-01-04 03:10] LABS: Hematocrit 24.4 % (39.0-52.0); Hemoglobin 8.1 g/dL (13.0-18.0)
[2025-01-04] MEDS: VANCOCIN 530 MG IV (06:39)
[2025-01-04 08:04] VITALS: BP 148/89
[2025-01-04] MEDS: THERAGRAN 1 TABLET PO (08:51)
[2025-01-04] MEDS: LOW STRENGTH ASPIRIN 81 MG PO (08:51)
[2025-01-04] MEDS: ALDACTONE 25 MG PO (08:52)
[2025-01-04] MEDS: VITAMIN B1 100 MG PO (08:52)
[2025-01-04] MEDS: CATAPRES 0.3 MG PO ×4 (08:52→22:49)
[2025-01-04] MEDS: COREG 25 MG PO ×2 (08:53→20:36)
[2025-01-04] MEDS: LASIX 40 MG IV (08:53)
[2025-01-04] MEDS: SUBUTEX 16 MG SL (08:54)
[2025-01-04] MEDS: DESENEX/MITRAZOL/ZEASORB 1 APPLIC TOPICAL ×2 (08:54→20:41)
[2025-01-04] MEDS: MAGNESIUM OXIDE 500 MG PO (08:58)
--- NOTE | 2025-01-04 09:01 | PHA.VAN.FU ---
Addendum entered and electronically signed by Yumiko Hirsch [facility] 01/04/25 09:26:
Agree with assessment and plan
Original Note:
Vancomycin Assessment / Plan
- Assessment
Renal Function: Stable
WBC's are: WNL
In the past 24 hrs, patient has been: Afebrile
Concomitant Antimicrobials: nafcillin
- Dosing Plan
Continue: 1500mg q24h
- Monitoring Plan
No level(s) ordered at this time: consider within next few days
- Follow Up
Pharmacy will continue to follow.
Vancomycin Follow UP
- -
Patient Age: 39
Patient Sex: Male
Vancomycin Day #: 33
Indication: Bacteremia
Requesting Provider: Dr. Fofana / [facility]
Pertinent Antimicrobial Allergies:
NKDA
Height / Weight:
Height 6 ft 2 in
Actual Weight 88.1 kg
IBW in k.2
Pertinent Past Medical History: IV JOCELIN
- Vital Signs / Lab Results
Temp Pulse Resp BP Pulse Ox
98.3 F 86 20 148/89 98
01/04/25 02:46 01/04/25 02:00 01/04/25 02:46 01/04/25 08:53 01/04/25 02:46
Lab Results - Hematology
01/02/25
05:05
WBC 7.3
Lab Results - Chemistry
01/02/25
05:05
BUN 10
Creatinine 0.7
Estimated Creat Clear > 125
Microbiology Results
01/01/25 11:21 Body Fluid Culture - Final
Pericardial Fluid No Growth After 72 Hours
Gram Stain - Final
01/01/25 11:21 Acid Fast Bacilli Smear - Preliminary
Pericardial Fluid Acid Fast Bacilli Culture - Preliminary
Therapeutic Drug Monitoring
Vancomycin Peak 26.0 ug/ml (18-) 12/31/24 09:30
Vancomycin Trough 10.7 ug/ml (5-20) 01/02/25 05:05
Random Vancomycin 13.9 ug/ml 12/21/24 03:53
[2025-01-04 09:08] VITALS: BMI 24.9
--- NOTE | 2025-01-04 10:14 | W.PN.CARDCBS ---
Addendum entered and electronically signed by Cristobal Rivera MD 01/04/25 12:29:
I saw and examined the patient.
The Credit Professional's note was reviewed and I agree with the note.
Comment: Briefly, 39-year-old man with past medical history of IVDU who presented with CVA due to septic emboli and was found to have MSSA bacteremia and subsequently mitral valve endocarditis.
KELI 12/29/24 showed worsening mitral regurgitation and moderate pericardial effusion which is new
Patient underwent pericardiocentesis on 01/01 with pericardial drain removed 01/03. Repeat echo earlier today showed only trivial pericardial effusion.
Overall volume status appears reasonable on exam, would continue current daily Lasix/Aldactone dosing
For now continues on IV antibiotics and pending clinical course may require mitral valve replacement - CT surgery following
Discussed with patient's family at bedside
Original Note:
Today's Communication / Plan
-
Continue IV abx per ID
Pericardial drain removed 01/03
Follow hgb
Continue diuresis
Impression / Plan
-
PCP: None prior to admission
Primary Emergency Service Worker: none prior to admission
Impression:
Presentation with change in mental status 12/03/24
Sepsis
Septic emboli by brain MRI
MSSA bacteremia
Pancreatitis
TME
VDRF
LE
Rhabdomyolysis
Elevated LFTs
Thrombocytopenia
Anemia, possibly hemolytic
Pericardial effusion s/p pericardiocentesis 01/01/25
IVDA since age 19
Vaping
Hypokalemia
Acute HFpEF
LUE DVT
Dental extractions, 15 teeth removed as an inpatient on 12/25/2024
ECHO 12/04/2024: EF 55 to 60%, no regional wall motion abnormalities noted, no evidence of vegetation seen
KELI 12/07/2024: EF 65%, large endocarditis/vegetations attached to mitral annulus measuring ~1x1cm each, mild MR, no Tricuspid or aortic vegetations
Echo 12/14/2024: EF 60-65%, thick echodensity of mitral annulus 1.6x20 cm, trace MR
Echo 12/27/2024: EF 60-65%, trace MR, mobile echodensity consistent with known endocarditis seen near the mitral valve posterior leaflet annulus, moderate circumferential pericardial effusion without evidence of tamponade physiology
KELI 12/29/2024: EF 65%, moderate in size partially mobile echodensity attached to the mitral valve annulus and also at the posterior leaflet of P1/P2, eccentric jet of moderate MR present around echodensity/vegetation, moderate pericardial effusion
Plan:
-Admitted with confusion and generalized weakness, changes in urine output and back pain. Then developed VDRF in the setting of sepsis, septic shock, TME, brain lesions concerning for embolic disease and rhabdo.
-KELI 12/07/2024 noted evidence of large endocarditis/vegetations attached to the mitral annulus. Continues on IV nafcillin and vanco through 01/23/25 per ID.
-Repeat KELI 12/29 revealed improvement in the size of echodensity on the mitral valve, however mitral regurgitation worsened and moderate pericardial effusion noted.
-Underwent pericardiocentesis on 01/01 with 350-400 cc bloody fluid removed. Pericardial drain output improved and drain removed 01/03.
-Hgb has been intermittently dropping throughout admission requiring multiple transfusions. s/p 4 units PRBCs this admission, most recently 12/28. Hgb down slightly at 8.1 on 01/04.
-Not on OAC due to risk of hemorrhage with septic emboli on MRI of brain earlier in admission despite LUE DVT.
-He is s/p 15 dental extractions 12/25.
-Continues on IV Lasix 40 mg daily. Creatinine stable at 0.7. Volume status improving. Weight down overnight to 193 lbs on 01/04.
-New to Coreg 25mg BID, spironolactone 25mg daily, and clonidine 0.3mg daily this admission.
-Plan is to continue antibiotics and reassess as OP with CT surgery to discuss optimal plan for surgery.
-PT recommending acute rehab at d/c. Awaiting placement
Progress Note - Emergency Service Worker
Subjective
Date of Service: January 04, 2025
Remains stable.
Objective
Labs:
01/04/25 02:56
01/02/25 05:05
Labs
Hgb 8.1 g/dL (13.0-18.0) L 01/04/25 02:56
Hct 24.4 % (39.0-52.0) L 01/04/25 02:56
Plt Count 624 10^3/uL (130-400) H 01/02/25 05:05
PT 15.1 Sec (11.4-14.6) H 12/26/24 06:08
INR 1.16 12/26/24 06:08
APTT 30.9 Sec (23.4-35.0) 12/26/24 06:08
Sodium 135 mmol/L (135-145) 01/02/25 05:05
Potassium 3.8 mmol/L (3.5-5.1) 01/02/25 05:05
BUN 10 mg/dl (9-20) 01/02/25 05:05
Creatinine 0.7 mg/dL (0.7-1.3) 01/02/25 05:05
Glucose 94 mg/dl (70-99) 01/02/25 05:05
Vital Signs and I&O:
Vital Signs
Temp Pulse Resp BP Pulse Ox
98.3 F 86 20 148/89 98
01/04/25 02:46 01/04/25 02:00 01/04/25 02:46 01/04/25 08:53 01/04/25 02:46
Vital Signs
Temp Pulse Resp BP Pulse Ox
98.3 F 86 20 148/89 98
01/04/25 02:46 01/04/25 02:00 01/04/25 02:46 01/04/25 08:53 01/04/25 02:46
Intake & Output
01/02/25 01/03/25 01/04/25 01/05/25
06:59 06:59 06:59 06:59
Intake Total 2594 / 2594 1716 / 1716 2304 / 2304
Output Total 1350 / 1350 1810 / 1810 1950 / 1950
Balance 1244 / 1244 -94 / -94 354 / 354
Physical Exam
Physical Exam
GEN: NAD
LUNGS: RA
CV: Sinus on telemetry
--- NOTE | 2025-01-04 10:36 | CM ---
Addendum entered by Nicole Hughes RN 01/04/25 15:47:
[facility] declined
Original Note:
Chart reviewed. Patient is independent of ADLS, lives with her parents in a 2 STH, 2 NAVIN, 0 DME. Patient with endocarditis needing IV antibiotics until 01/23. PT evaluation recommending Rehab. Referral sent to
[facility]
[place]
[facility]
[place]
[facility]
[place]
[facility]
all declined, except [facility] is reviewing CM to follow
[2025-01-04 12:03] VITALS: BP 128/77
[2025-01-04 15:01] VITALS: BP 123/74
--- NOTE | 2025-01-04 15:04 | W.PN.HOSP.TC ---
Today's Communication/Plan
-
Assessment / Plan
Assessment / Plan
General: No Apparent Distress, Comfortable and Conversant
HEENT: NormoCephalic, Moist mucous membranes, Atraumatic, poor dentition
Respiratory: Clear and Non Labored Respirations
Cardiac: S1/S2 and Regular Rhythm; No Rub or Gallop, pericardial drain removed and dressing CDI
GI: Soft, Non Tender, Non Distended and Normal Bowel Sounds
Musculoskeletal: No Edema, no deformity
: NO Balderas
Neuro: Awake, Alert, Nonfocal/grossly intact
Psych: Calm and Intact Judgment/Insight
Impression:
Patient is a 39-year-old male with a medical history of polysubstance abuse (skin popping with fentanyl) who was admitted after presentation with altered mental status. He was brought in by his parents with tremors and confusion. His mental status
abruptly declined and he was intubated for airway protection. CT brain showed possible left occipital lobe mass. His blood cultures are positive for MRSA. He was initially being managed in the ICU for treatment of encephalopathy and bacteremia.
Patient extubated and downgraded to general medical floors.
CT surgery recommending dental extraction while in the hospital and consider valve replacement during this admission.
status post 15 tooth extraction 01/04, follow-up CT surgeon recommendation regarding valve replacement.
Hemoglobin dropped again, now status post 2 more units of blood transfusion.
Repeat echocardiogram shows
1. Normal left ventricular size, wall thickness and systolic function. No regional wall motion abnormalities are seen.
2. Ejection fraction is 60-65% by visual assesment.
3. Trace mitral valve regurgitation. Mobile echodensity consistent with known endocarditis seen near the mitral valve posterior leaflet annulus.
4. Moderate circumferential pericardial effusion without evidence of tamponade physiology.
5. Compared to a prior echo from December 14 2024, which was reviewed, there is now a moderate pericardial effusion, findings are otherwise similar.
6. Fair image quality.
KELI 12/29/2024: EF 65%, moderate in size partially mobile echodensity attached to the mitral valve annulus and also at the posterior leaflet of P1/P2, eccentric jet of moderate MR present around echodensity/vegetation, moderate pericardial effusion
Pericardiocentesis 01/01.
Assessment/plan:
Septic shock secondary to MRSA/MSSA bacteremia:
- Off vasopressors and downgraded to general medical floors
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
- Afebrile since 12/11, leukocytosis resolved
- Transesophageal echocardiogram 12/06 showed large mitral annulus vegetation
- ID following, continue antibiotics with vancomycin and nafcillin, repeat cultures negative since 12/13
- Continue antibiotics with vancomycin and nafcillin through 01/23/2025 (6 weeks from sterile cultures on 12/13)
- status post 15 tooth extraction 12/25, follow-up CT surgeon recommendation regarding valve replacement
- Repeat KELI 12/29 showed moderately sized partially mobile echodensity attached to the mitral valve annulus and also the posterior leaflet of P1/P2, also showed moderate pericardial effusion
- Pericardiocentesis 01/01 with approximately 350 cc of sanguinous output, cultures with no growth to date, drain left in place initially but was removed evening of 01/03, patient feeling well, dressing CDI
- Awaiting rehab placement for ongoing antibiotic administration
Pericardial effusion:
- Pericardiocentesis 01/01 with 350 cc of sanguinous output, cultures with no growth to date, drain initially left in place with very minimal output, drain was later removed 01/03
Polysubstance abuse:
- Long history of injection drug abuse
- Now doing well with initiation of buprenorphine treatment, currently 16 mg sublingual daily and 4 mg at night
- Will need coordination with [facility] at time of hospital discharge
Anemia requiring transfusion
- Transfused 1 unit PRBCs for hemoglobin of 7.2 on 12/19, a second unit PRBCs 12/21 for hemoglobin 6.9, hemoglobin appropriately improved, remained stable around 7.5
- No evidence of active bleeding, suspect anemia is due to ongoing infection and frequent blood draws, will attempt to limit blood draws
- Hemoglobin again dropped below 7.0 on 12/27 and 12/28, he was transfused 2 additional units of PRBCs at that time with subsequent improvement in hemoglobin
- Hemoglobin dropped to 8.1 today possibly due to sanguinous pericardial output, remains hemodynamically stable, will repeat H&H in the morning
- Currently stable, Will monitor
Acute hypoxic respiratory failure.
Ventilation dependent respiratory failure.
12/13
Patient extubated
Acute toxic metabolic encephalopathy:
- EEG with no acute epileptiform activity captured
- Encephalopathy likely multifactorial due to bacteremia, opiate withdrawal, and and suspected septic emboli to brain
- MRI brain consistent with suspicion for septic emboli, repeat CT brain shows stable findings
- Now resolved, patient at baseline mental status, extubated 12/13
Left upper extremity DVT involving brachial vein
Given his multiple scattered acute infarctions with microhemorrhages, patient is high risk for ICH if systemic anticoagulation started
PICC line removed repeat ultrasound shows left brachial vein nonocclusive DVT.
continue subcu heparin.
Hypomagnesemia:
- Resolved, monitor
LE:
- Resolved
Hypokalemia:
- Resolved
- Monitor
Rhabdomyolysis:
- Resolved
Elevated LFTs:
- Suspect due to severe sepsis
- Resolved, monitor with treatment as above
Pancreatitis:
- Resolved
Lactic acidosis:
- Resolved, continue to monitor
CODE STATUS: Full code
DVT prophylaxis: Subcu heparin
Diet: Regular diet
Total time spent on today's encounter was 56 minutes which included time spent in counseling the patient/family regarding diagnosis and treatment plan as listed above, goals of care, and symptom management. Case was discussed with nursing staff,
specialists, and care coordinators/case management. All labs and imaging personally reviewed by me. Remainder the time spent in detailed review of previous records, lab data, imaging, and other medical provider documentation.
Anticipated Discharge: > 48 hours
Subjective/Interval History
-
Date of Service: January 04, 2025
Patient was seen and examined at bedside this morning. Feeling well. Pericardial drain removed yesterday.
Objective Data
-
Labs:
Laboratory Results
01/04/25
02:56
Hgb 8.1 L
Hct 24.4 L
Vital Signs:
Vital Signs
Temp Pulse Resp BP Pulse Ox
98.7 F 101 14 128/77 98
01/04/25 14:58 01/04/25 14:11 01/04/25 14:58 01/04/25 14:11 01/04/25 14:58
I&O
01/03/25 01/04/25 01/05/25
06:59 06:59 06:59
Intake Total 1716 / 1716 2304 / 2304
Output Total 1810 / 1810 1950 / 1950 650 / 650
Balance -94 / -94 354 / 354 -650 / -650
Review of Systems
-
History Source: Patient
All other systems: Reviewed and negative
Physical Exam
-
General: No Apparent Distress
--- NOTE | 2025-01-04 16:00 | PTCARENOTE ---
Assumed care at 0700. Patient alert and oriented x3. Patient denies any pain throughout the day. Remains afebrile. Patient OOB to bathroom with walker and standby assist. Urinal at bedside. Patient aware of plan of care. Call cintorn and personal
belongings within reach.
[2025-01-04 19:00] VITALS: BP 144/90
[2025-01-04] MEDS: MELATONIN 10 MG PO (23:05)
[2025-01-04 23:23] VITALS: BP 137/85
[2025-01-04] MEDS: SUBUTEX 2 MG SL (23:28)
[2025-01-05 03:30] VITALS: BP 136/82
[2025-01-05] MEDS: NAFCIL 108 MG IV ×6 (03:37→21:53)
[2025-01-05 04:24] LABS: Hematocrit 25.1 % (39.0-52.0); Hemoglobin 8.4 g/dL (13.0-18.0)
[2025-01-05] MEDS: SUBUTEX 2 MG SL (04:43)
[2025-01-05 05:10] VITALS: BMI 24.5
[2025-01-05 07:00] VITALS: BP 168/109
[2025-01-05] MEDS: VANCOCIN 530 MG IV (07:56)
[2025-01-05] MEDS: SUBUTEX 16 MG SL (08:33)
[2025-01-05] MEDS: VITAMIN B1 100 MG PO (08:33)
[2025-01-05] MEDS: LASIX 40 MG IV (08:34)
[2025-01-05] MEDS: MAGNESIUM OXIDE 500 MG PO (08:34)
[2025-01-05] MEDS: CATAPRES 0.3 MG PO ×3 (08:35→21:55)
[2025-01-05] MEDS: COREG 25 MG PO ×2 (08:35→20:15)
[2025-01-05] MEDS: LOW STRENGTH ASPIRIN 81 MG PO (08:35)
[2025-01-05] MEDS: HEPARIN 5000 UNITS SC ×3 (08:35→23:46)
[2025-01-05] MEDS: ALDACTONE 25 MG PO (08:35)
[2025-01-05] MEDS: THERAGRAN 1 TABLET PO (08:35)
[2025-01-05] MEDS: TYLENOL 1000 MG PO ×3 (08:36→23:45)
--- NOTE | 2025-01-05 08:45 | W.PN.CARDCBS ---
Today's Communication / Plan
-
Conitnue IV antibiotics
Continue IV lasix
Follow labs/Hb
PT efforts ongoing
Repeat TTE next week
Impression / Plan
-
PCP: None prior to admission
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
Impression:
Presentation with change in mental status 12/03/24
Sepsis
Septic emboli by brain MRI
MSSA bacteremia
Pancreatitis
TME
VDRF
LE
Rhabdomyolysis
Elevated LFTs
Thrombocytopenia
Anemia, possibly hemolytic
Pericardial effusion s/p pericardiocentesis 01/01/25
IVDA since age 19
Vaping
Hypokalemia
Acute HFpEF
LUE DVT
Dental extractions, 15 teeth removed as an inpatient on 12/25/2024
ECHO 12/04/2024: EF 55 to 60%, no regional wall motion abnormalities noted, no evidence of vegetation seen
KELI 12/07/2024: EF 65%, large endocarditis/vegetations attached to mitral annulus measuring ~1x1cm each, mild MR, no Tricuspid or aortic vegetations
Echo 12/14/2024: EF 60-65%, thick echodensity of mitral annulus 1.6x20 cm, trace MR
Echo 12/27/2024: EF 60-65%, trace MR, mobile echodensity consistent with known endocarditis seen near the mitral valve posterior leaflet annulus, moderate circumferential pericardial effusion without evidence of tamponade physiology
KELI 12/29/2024: EF 65%, moderate in size partially mobile echodensity attached to the mitral valve annulus and also at the posterior leaflet of P1/P2, eccentric jet of moderate MR present around echodensity/vegetation, moderate pericardial effusion
39-year-old gentleman with IV drug abuse/polysubstance abuse with complicated Staphylococcus aureus bacteremia (MRSA/MSSA), large mobile mitral valve endocarditis, embolic CVA, left upper extremity PICC associated DVT, failure to thrive with
anasarca/low albumin and new diagnosis of hepatitis C [Eventual referral to [facility] for HCV treatment]
-Multidisciplinary care reviewed including consults with ID and CT surgery
-Prolonged hospitalization now on day 37 with slowly improving functional status now able to stand and ambulate with assistance to the bathroom. CM notes reviewed- multiple referrals to SNF declined, awaiting [facility] response as of 01/04
-KELI 12/07/2024 noted evidence of large endocarditis/vegetations attached to the mitral annulus. Continues on IV nafcillin and vanco through 01/23/25 per ID.
-KELI performed on 12/29/24 reveals EF 65%, AV with no significant AI. MV with a moderate partially mobile echodensity attached to the annulus and the posterior leaflet of P1/P2. Eccentric jet of moderate MR. No MS. TV with trace regurgitation, and a
PV with trace regurgitation. Moderate sized pericardial effusion, circumferential with no clear evidence of tamponade physiology. When compared to previous KELI December 07 2023, the vegetation on the mitral valve is smaller, however the mitral
regurgitation is worsened going from mild to moderate. There is also now a new moderate size pericardial effusion.
-Underwent pericardiocentesis on 01/01 with 350-400 cc bloody fluid removed. Pericardial drain output improved and drain removed 01/03.
-Limited TTE 01/04 with trivial pericardial effusion and moderate eccentric MR.
-He remains anemic. The etiology is remains unclear. While hemolysis is a possibility his LDH and haptoglobin levels are not overly impressive. Continue supportive care for likely some level of anemia of chronic disease in the setting of
endocarditis. s/p 4 units PRBCs this admission, most recently 12/28. Hgb down slightly at 8.4 on 01/05. Could consider hematology evaluation. Follow hemoglobin.
-LUE PICC associated DVT, PICC dc'd 12/14. Not on OAC due to high risk of hemorrhage with septic emboli on MRI of brain earlier in admission despite LUE DVT.
-OMFS consult reviewed; He is s/p 15 dental extractions 12/25.
Today's plan
-Volume status continue to slowly improve, wt to day 190 lbs but still volume overload
-Tubigrip stockings yo be reapplied by RN
-Continue IV Lasix 40 mg daily over the weekend- likely transition to oral Lasix next week. Creatinine stable at 0.7. Na 135/K 3.8
-New to Coreg 25mg BID, spironolactone 25mg daily, and clonidine 0.3mg QID this admission.
-Repeat limited echo next week to reassess pericardial effusion- ordered.
-ID notes reviewed: 12/12/24 Last positive Blood cx MRSA. 12/13/24 forward, negative blood cx's. Plan is to continue antibiotics through 01/23.
-Reached out to CT surgery to review plan: medical versus surgical options
-PT/OT efforts ongoing. Awaiting placement plan.
-I again had a discussion with him about the importance of avoiding significant substance abuse. He states he is fully on board with not using any further IV drugs.
Progress Note - Gas Appliance Installer
Subjective
Date of Service: January 05, 2025
Patient seen and examined. Improving lower extremity edema and mobility. No fevers. No dizziness or chest pain. Denies shortness of breath at current level of activity. His extended hospitalization records reviewed.
Objective
Labs:
01/05/25 03:34
01/02/25 05:05
Labs
Hgb 8.4 g/dL (13.0-18.0) L 01/05/25 03:34
Hct 25.1 % (39.0-52.0) L 01/05/25 03:34
Plt Count 624 10^3/uL (130-400) H 01/02/25 05:05
PT 15.1 Sec (11.4-14.6) H 12/26/24 06:08
INR 1.16 12/26/24 06:08
APTT 30.9 Sec (23.4-35.0) 12/26/24 06:08
Sodium 135 mmol/L (135-145) 01/02/25 05:05
Potassium 3.8 mmol/L (3.5-5.1) 01/02/25 05:05
BUN 10 mg/dl (9-20) 01/02/25 05:05
Creatinine 0.7 mg/dL (0.7-1.3) 01/02/25 05:05
Glucose 94 mg/dl (70-99) 01/02/25 05:05
Vital Signs and I&O:
Vital Signs
Temp Pulse Resp BP Pulse Ox
97.5 F 96 16 168/109 99
01/05/25 03:30 01/05/25 08:34 01/05/25 03:30 01/05/25 08:34 01/05/25 03:30
Vital Signs
Temp Pulse Resp BP Pulse Ox
97.5 F 96 16 168/109 99
01/05/25 03:30 01/05/25 08:34 01/05/25 03:30 01/05/25 08:34 01/05/25 03:30
Intake & Output
01/03/25 01/04/25 01/05/25 01/06/25
06:59 06:59 06:59 06:59
Intake Total 1716 / 1716 2304 / 2304 480 / 480
Output Total 1810 / 1810 1950 / 1950 1300 / 1300
Balance -94 / -94 354 / 354 -820 / -820
Physical Exam
Physical Exam
General: 39-year-old gentleman out of bed to chair on room air. Appears older than stated age
Heart: Regular, positive S1-S2. 2/6 SM
Lungs: Bronchovesicular breath sounds decreased without wheezes or rhonchi.
Abd: Soft, nontender. Positive bowel sound
Ext: +2 bilateral lower extremity edema to his knees with chronic venous stasis changes. Mild hand swelling
[2025-01-05] MEDS: DESENEX/MITRAZOL/ZEASORB 1 APPLIC TOPICAL ×2 (08:50→20:16)
--- NOTE | 2025-01-05 09:37 | PHA.VAN.FU ---
Addendum entered and electronically signed by Yumiko Hirsch [facility] 01/05/25 09:46:
Agree with assessment and plan
Original Note:
Vancomycin Assessment / Plan
- Assessment
Renal Function: Stable
WBC's are: WNL
In the past 24 hrs, patient has been: Afebrile
Concomitant Antimicrobials: nafcillin
- Dosing Plan
Continue: 1500mg q24h
- Monitoring Plan
No level(s) ordered at this time: consider within next few days
- Follow Up
Pharmacy will continue to follow.
Vancomycin Follow UP
- -
Patient Age: 39
Patient Sex: Male
Vancomycin Day #: 34
Indication: Bacteremia
Requesting Provider: Dr. Fofana / Teto
Pertinent Antimicrobial Allergies:
NKDA
Height / Weight:
Height 6 ft 2 in
Actual Weight 86.455 kg
IBW in k.2
Pertinent Past Medical History: IV JOCELIN
- Vital Signs / Lab Results
Temp Pulse Resp BP Pulse Ox
97.5 F 96 16 168/109 99
01/05/25 03:30 01/05/25 08:34 01/05/25 03:30 01/05/25 08:34 01/05/25 03:30
Microbiology Results
01/01/25 11:21 Body Fluid Culture - Final
Pericardial Fluid No Growth After 72 Hours
Gram Stain - Final
01/01/25 11:21 Acid Fast Bacilli Smear - Preliminary
Pericardial Fluid Acid Fast Bacilli Culture - Preliminary
Therapeutic Drug Monitoring
Vancomycin Peak 26.0 ug/ml (18-26) 12/31/24 09:30
Vancomycin Trough 10.7 ug/ml (5-20) 01/02/25 05:05
Random Vancomycin 13.9 ug/ml 12/21/24 03:53
[2025-01-05 11:00] VITALS: BP 107/64
--- NOTE | 2025-01-05 11:11 | CM ---
Reviewed the chart notes. PT recommending SNF. Will need 6 weeks of IV antibiotics. Referrals previously sent in [facility] [place]:
[facility]
[place]
[facility]
[place]
[facility]
[place]
[facility]
All have declined due to prior IV DA.
Additional referrals sent to:
[facility] [place]
[facility]
[place]
Plan: Discharge to SNF once bed secured and auth obtained.
--- NOTE | 2025-01-05 12:34 | W.PN.HOSP.TC ---
Today's Communication/Plan
-
Assessment / Plan
Assessment / Plan
General: No Apparent Distress, Comfortable and Conversant
HEENT: NormoCephalic, Moist mucous membranes, Atraumatic, poor dentition
Respiratory: Clear and Non Labored Respirations
Cardiac: S1/S2 and Regular Rhythm; No Rub or Gallop, pericardial drain removed
GI: Soft, Non Tender, Non Distended and Normal Bowel Sounds
Musculoskeletal: No Edema, no deformity
: NO Balderas
Neuro: Awake, Alert, Nonfocal/grossly intact
Psych: Calm and Intact Judgment/Insight
Impression:
Patient is a 39-year-old male with a medical history of polysubstance abuse (skin popping with fentanyl) who was admitted after presentation with altered mental status. He was brought in by his parents with tremors and confusion. His mental status
abruptly declined and he was intubated for airway protection. CT brain showed possible left occipital lobe mass. His blood cultures are positive for MRSA. He was initially being managed in the ICU for treatment of encephalopathy and bacteremia.
Patient extubated and downgraded to general medical floors.
CT surgery recommending dental extraction while in the hospital and consider valve replacement during this admission.
status post 15 tooth extraction 01/04, follow-up CT surgeon recommendation regarding valve replacement.
Hemoglobin dropped again, now status post 2 more units of blood transfusion.
Repeat echocardiogram shows
1. Normal left ventricular size, wall thickness and systolic function. No regional wall motion abnormalities are seen.
2. Ejection fraction is 60-65% by visual assesment.
3. Trace mitral valve regurgitation. Mobile echodensity consistent with known endocarditis seen near the mitral valve posterior leaflet annulus.
4. Moderate circumferential pericardial effusion without evidence of tamponade physiology.
5. Compared to a prior echo from December 14 2024, which was reviewed, there is now a moderate pericardial effusion, findings are otherwise similar.
6. Fair image quality.
KELI 12/29/2024: EF 65%, moderate in size partially mobile echodensity attached to the mitral valve annulus and also at the posterior leaflet of P1/P2, eccentric jet of moderate MR present around echodensity/vegetation, moderate pericardial effusion
Pericardiocentesis 01/01.
Assessment/plan:
Septic shock secondary to MRSA/MSSA bacteremia:
- Off vasopressors and downgraded to general medical floors
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
- Afebrile since 12/11, leukocytosis resolved
- Transesophageal echocardiogram 12/06 showed large mitral annulus vegetation
- ID following, continue antibiotics with vancomycin and nafcillin, repeat cultures negative since 12/13
- Continue antibiotics with vancomycin and nafcillin through 01/23/2025 (6 weeks from sterile cultures on 12/13)
- status post 15 tooth extraction 12/25, follow-up CT surgeon recommendation regarding valve replacement
- Repeat KELI 12/29 showed moderately sized partially mobile echodensity attached to the mitral valve annulus and also the posterior leaflet of P1/P2, also showed moderate pericardial effusion
- Pericardiocentesis 01/01 with approximately 350 cc of sanguinous output, cultures with no growth to date, drain left in place initially but was removed evening of 01/03, patient feeling well
- Awaiting rehab placement for ongoing antibiotic administration
Pericardial effusion:
- Pericardiocentesis 01/01 with 350 cc of sanguinous output, cultures with no growth to date, drain initially left in place with very minimal output, drain was later removed 01/03
Polysubstance abuse:
- Long history of injection drug abuse
- Now doing well with initiation of buprenorphine treatment, currently 16 mg sublingual daily and 4 mg at night which we will continue
- Will need coordination with [facility] at time of hospital discharge
Anemia requiring transfusion
- Transfused 1 unit PRBCs for hemoglobin of 7.2 on 12/19, a second unit PRBCs 12/21 for hemoglobin 6.9, hemoglobin appropriately improved, remained stable around 7.5
- No evidence of active bleeding, suspect anemia is due to ongoing infection and frequent blood draws, will attempt to limit blood draws
- Hemoglobin again dropped below 7.0 on 12/27 and 12/28, he was transfused 2 additional units of PRBCs at that time with subsequent improvement in hemoglobin
- Hemoglobin dropped to 8.1 yesterday possibly due to sanguinous pericardial output, remains hemodynamically stable, hemoglobin stable at 8.4 on repeat H&H this morning
- Currently stable, Will monitor
Acute hypoxic respiratory failure.
Ventilation dependent respiratory failure.
12/13
Patient extubated
Acute toxic metabolic encephalopathy:
- EEG with no acute epileptiform activity captured
- Encephalopathy likely multifactorial due to bacteremia, opiate withdrawal, and and suspected septic emboli to brain
- MRI brain consistent with suspicion for septic emboli, repeat CT brain shows stable findings
- Now resolved, patient at baseline mental status, extubated 12/13
Left upper extremity DVT involving brachial vein
Given his multiple scattered acute infarctions with microhemorrhages, patient is high risk for ICH if systemic anticoagulation started
PICC line removed repeat ultrasound shows left brachial vein nonocclusive DVT.
continue subcu heparin.
Hypomagnesemia:
- Resolved, monitor
LE:
- Resolved
Hypokalemia:
- Resolved
- Monitor
Rhabdomyolysis:
- Resolved
Elevated LFTs:
- Suspect due to severe sepsis
- Resolved, monitor with treatment as above
Pancreatitis:
- Resolved
Lactic acidosis:
- Resolved, continue to monitor
CODE STATUS: Full code
DVT prophylaxis: Subcu heparin
Diet: Regular diet
Total time spent on today's encounter was 46 minutes which included time spent in counseling the patient/family regarding diagnosis and treatment plan as listed above, goals of care, and symptom management. Case was discussed with nursing staff,
specialists, and care coordinators/case management. All labs and imaging personally reviewed by me. Remainder the time spent in detailed review of previous records, lab data, imaging, and other medical provider documentation.
Anticipated Discharge: > 48 hours
Subjective/Interval History
-
Date of Service: January 05, 2025
Patient was seen and examined at bedside this morning. Downgraded to telemetry after removal of pericardial drain. The order for his evening dose of Subutex 4 mg automatically discontinued yesterday and so is being reordered as of now.
Objective Data
-
Labs:
Laboratory Results
01/05/25
03:34
Hgb 8.4 L
Hct 25.1 L
Vital Signs:
Vital Signs
Temp Pulse Resp BP Pulse Ox
98 F 93 20 107/64 98
01/05/25 11:00 01/05/25 11:00 01/05/25 11:00 01/05/25 11:00 01/05/25 11:00
I&O
01/04/25 01/05/25 01/06/25
06:59 06:59 06:59
Intake Total 2304 / 2304 480 / 480 530 / 530
Output Total 1950 / 1950 1300 / 1300 1000 / 1000
Balance 354 / 354 -820 / -820 -470 / -470
Review of Systems
-
History Source: Patient
All other systems: Reviewed and negative
Physical Exam
-
General: No Apparent Distress
--- NOTE | 2025-01-05 13:13 | W.PN.ID1 ---
Date of Service
Date of Service: January 05, 2025
Today's Communication
Continue Vancomycin and nafcillin.
Assessment / Plan
# Complicated Staphylococcus aureus (MRSA/MSSA) bacteremia
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
# Multiple embolic CVA
#New dx of hepatitis C infection: Hepatitic C Ab positive; HCV RNA 2,190,000
# LUE PICC associated DVT, PICC dc'd 12/14
# Fever and leukocytosis resolved
# s/p Intubated 12/03, extubated 12/12/24
# Polysubstance abuse (cocaine and fentanyl 'muscle-ling')
# hx MRSA wound abscesses (2010)
# hx of Viridans strep bacteremia (2010)
- 12/14 repeat TTE: 1.6 x 2 cm echodensity MV
- 12/12/24 Last positive Blood cx MRSA
- 12/13/24 forward, negtive blood cx's.
- 12/14/24 PICC D/C'ed; tip cx without growth
- HIV screen negative.
- Hepatitic C Ab positive; HCV RNA 2,190,000
- anemia requiring pRBC transfusion
- 12/25 s/p 15 tooth extractions
-12/29 Repeat KELI MV vegetation smaller, but mitral regurgitation worse, new moderate pericardial effusion.
- 01/01 s/p pericardiocentesis, cx neg to date
- There is discrepancy between blood cx PCR (identified as MRSA) and phenotype (identified as MSSA)
Cefoxitin induced test negative. PBP2a negative.
Discussed with S. aureus experts.
Best to treat as both MRSA and MSSA since there are only few publications regarding this particular strain of S. aureus.
- Continue IV Vancomycin and Nafcillin 2g IV q4h (both crosses blood-brain barrier), 6 weeks of IV antibiotics from negative blood cx, through 01/23/2025
- Monitor renal function and LFT's while on nafcillin.
- Close monitoring of vancomycin levels to prevent nephrotoxicity. Appreciate pharmacists.
- Eventual referral to esl tutor for HCV treatment.
Chief Complaint
-: Bacteremia and Other (embolic CVA)
Subjective / Review of Systems
Getting stronger. No complaints.
Vital Signs / Physical Exam
Vital Signs
Vital Signs
Temp Pulse Resp BP Pulse Ox
98 F 93 20 107/64 98
01/05/25 11:00 01/05/25 11:00 01/05/25 11:00 01/05/25 11:00 01/05/25 11:00
Physical Exam
Constitutional: No Acute Distress
Cardiovascular: Regular Rate, S1/S2 and Other
Pulmonary: Clear
Gastrointestinal: Soft and Non Distended
Extremities: Edema (BLE improving)
Neurological: AO x 3
Lines: PICC
Objective Data
Lab Data
Lab Results
01/05/25 03:34
01/02/25 05:05
PT 15.1 Sec (11.4-14.6) H 12/26/24 06:08
INR 1.16 12/26/24 06:08
APTT 30.9 Sec (23.4-35.0) 12/26/24 06:08
Estimated Creat Clear > 125 ml/min 01/02/25 05:05
Lactic Acid 1.3 mmol/L (0.7-2.0) 12/05/24 16:46
Total Bilirubin 0.8 mg/dl (0.2-1.3) 12/26/24 06:08
AST 21 U/L (17-59) 12/26/24 06:08
ALT 13 U/L (0-50) 12/26/24 06:08
Alkaline Phosphatase 103 U/L (38-126) 12/26/24 06:08
Amylase 139 U/L (30-110) H 12/05/24 04:04
Most recent labs reviewed.
Micro Results:
01/01/25 11:21 Body Fluid Culture - Final
Pericardial Fluid No Growth After 72 Hours
Gram Stain - Final
01/01/25 11:21 Acid Fast Bacilli Smear - Preliminary
Pericardial Fluid Acid Fast Bacilli Culture - Preliminary
01/01/25 11:23 Fungal Smear - Final
Pericardial Fluid No yeast or fungal elements seen.
01/01/25 11:21 Fungal Culture - Preliminary
Pericardial Fluid Culture in progress.
Positive cultures are reported as soon as detected.
Final report to follow in four to five weeks.
12/17/24 07:12 Blood Culture - Final
Blood/Venous No Growth - Final Report
12/16/24 03:40 Blood Culture - Final
Blood/Venous No Growth - Final Report
12/15/24 04:33 Blood Culture - Final
Blood/Venous No Growth - Final Report
12/14/24 16:37 Blood Culture - Final
Blood/Venous No Growth - Final Report
12/12/24 03:10 Blood Culture - Final
Blood/Venous Staph aureus MRSA
Gram Stain - Final
12/13/24 04:07 Blood Culture - Final
Blood/Venous No Growth - Final Report
12/14/24 12:53 Catheter Tip Culture - Final
Picc No Growth After 72 Hours
12/09/24 03:54 Blood Culture - Final
Blood/Venous Staph aureus MRSA
Gram Stain - Final
12/08/24 03:02 Blood Culture - Final
Blood/Venous Staph aureus MRSA
Gram Stain - Final
12/11/24 03:33 Blood Culture - Final
Blood/Venous No Growth - Final Report
12/10/24 03:14 Blood Culture - Final
Blood/Venous No Growth - Final Report
12/07/24 04:06 Blood Culture - Final
Blood/Venous Staph aureus MRSA
Gram Stain - Final
12/03/24 08:20 Blood Culture - Final
Blood/Venous Staph aureus MRSA
Gram Stain - Final
12/03/24 09:21 Blood Culture - Final
Blood/Venous Staph aureus MRSA
Gram Stain - Final
12/05/24 16:46 Blood Culture - Final
Blood/Venous Staph aureus MRSA
Gram Stain - Final
12/05/24 13:38 Blood Culture - Final
Blood/Venous Staph aureus MRSA
Gram Stain - Final
12/03/24 08:38 Urine Culture - Final
Urine S aureus-Methicillin Sensitive
12/03/24 18:44 MRSA Screen - Final
Nose No Methicillin Resistant Staphylococcus aureus isolated.
Imaging:
12/05/24 CT a/p: Mild inflammatory change adjacent to the body and tail of the pancreas, suggestive of mild pancreatitis. No peripancreatic fluid collection appreciated. No evidence of intestinal obstruction or bowel inflammatory process. Study is
slightly limited by lack of intravenous or oral contrast. Gallbladder sludge without evidence of acute cholecystitis. No radiopaque gallstones are seen.
12/04/24 MRI brain: Numerous scattered acute infarctions in a distribution that is most suggestive of embolic phenomenon in the setting of known IV drug abuse. Multiple small microhemorrhages are also demonstrated.
12/03/24 CXR: Clear lungs.
12/03/[address]: Possible cortical petechial hemorrhages in the left frontal lobe and left occipital lobe. Possible small old infarct, periventricular small vessel ischemic disease or edema due to underlying mass in the left occipital lobe.
[2025-01-05] MEDS: CATAPRES PO (13:19)
[2025-01-05 15:00] VITALS: BP 141/90
[2025-01-05 19:49] VITALS: BP 148/86
[2025-01-05] MEDS: SUBUTEX 4 MG SL (21:50)
[2025-01-05] MEDS: MELATONIN 10 MG PO (21:50)
[2025-01-05] MEDS: FLUSH (NSS) 2 FLUSH IV (21:55)
[2025-01-05 23:09] VITALS: BP 132/83
[2025-01-06] MEDS: NAFCIL 108 MG IV ×6 (01:48→22:29)
[2025-01-06] MEDS: FLUSH (NSS) 2 FLUSH IV ×3 (01:49→22:30)
[2025-01-06 03:37] VITALS: BP 133/82
[2025-01-06] MEDS: FLUSH (NSS) 3 FLUSH IV (05:00)
[2025-01-06] MEDS: VANCOCIN 530 MG IV (06:23)
[2025-01-06 07:15] VITALS: BP 147/93
--- NOTE | 2025-01-06 08:29 | PHA.VAN.FU ---
Vancomycin Assessment / Plan
- Assessment
Renal Function: No New Labs Today
In the past 24 hrs, patient has been: Afebrile
Concomitant Antimicrobials: Nafcillin
- Dosing Plan
Continue: Vanc 1500mg IV q24H
- Monitoring Plan
No level(s) ordered at this time: Will order levels after 01/07 1800 dose
- Follow Up
Pharmacy will continue to follow.
Vancomycin Follow UP
- -
Patient Age: 39
Patient Sex: Male
Vancomycin Day #: 35
Indication: Bacteremia
Requesting Provider: Dr. Fofana / Teto
Pertinent Antimicrobial Allergies:
NKDA
Height / Weight:
Height 6 ft 2 in
Actual Weight 86.455 kg
IBW in k.2
Pertinent Past Medical History: IV JOCELIN
- Vital Signs / Lab Results
Temp Pulse Resp BP Pulse Ox
98.4 F 95 18 147/93 97
01/06/25 07:15 01/06/25 07:15 01/06/25 07:15 01/06/25 07:15 01/06/25 07:15
Microbiology Results
01/01/25 11:21 Body Fluid Culture - Final
Pericardial Fluid No Growth After 72 Hours
Gram Stain - Final
01/01/25 11:21 Acid Fast Bacilli Smear - Preliminary
Pericardial Fluid Acid Fast Bacilli Culture - Preliminary
Therapeutic Drug Monitoring
Vancomycin Peak 26.0 ug/ml (18-26) 12/31/24 09:30
Vancomycin Trough 10.7 ug/ml (5-20) 01/02/25 05:05
Random Vancomycin 13.9 ug/ml 12/21/24 03:53
[2025-01-06] MEDS: COREG 25 MG PO ×2 (09:25→19:31)
[2025-01-06] MEDS: LASIX 40 MG IV (09:25)
[2025-01-06] MEDS: CATAPRES 0.3 MG PO ×4 (09:26→22:29)
[2025-01-06] MEDS: TYLENOL 1000 MG PO ×3 (09:26→23:13)
[2025-01-06] MEDS: HEPARIN 5000 UNITS SC ×3 (09:26→23:12)
[2025-01-06] MEDS: ALDACTONE 25 MG PO (09:26)
[2025-01-06] MEDS: DESENEX/MITRAZOL/ZEASORB TOPICAL (09:27)
[2025-01-06] MEDS: LOW STRENGTH ASPIRIN 81 MG PO (09:27)
[2025-01-06] MEDS: THERAGRAN 1 TABLET PO (09:27)
[2025-01-06] MEDS: SUBUTEX 16 MG SL (09:30)
[2025-01-06] MEDS: VITAMIN B1 100 MG PO (09:31)
[2025-01-06] MEDS: MAGNESIUM OXIDE 500 MG PO (09:31)
--- NOTE | 2025-01-06 10:27 | W.PN.HOSP.TC ---
Today's Communication/Plan
-
Assessment / Plan
Assessment / Plan
General: No Apparent Distress, Comfortable and Conversant
HEENT: NormoCephalic, Moist mucous membranes, Atraumatic, poor dentition
Respiratory: Clear and Non Labored Respirations
Cardiac: S1/S2 and Regular Rhythm; No Rub or Gallop, pericardial drain removed
GI: Soft, Non Tender, Non Distended and Normal Bowel Sounds
Musculoskeletal: No Edema, no deformity
: NO Balderas
Neuro: Awake, Alert, Nonfocal/grossly intact
Psych: Calm and Intact Judgment/Insight
Impression:
Patient is a 39-year-old male with a medical history of polysubstance abuse (skin popping with fentanyl) who was admitted after presentation with altered mental status. He was brought in by his parents with tremors and confusion. His mental status
abruptly declined and he was intubated for airway protection. CT brain showed possible left occipital lobe mass. His blood cultures are positive for MRSA. He was initially being managed in the ICU for treatment of encephalopathy and bacteremia.
Patient extubated and downgraded to general medical floors.
CT surgery recommending dental extraction while in the hospital and consider valve replacement during this admission.
status post 15 tooth extraction 01/04, follow-up CT surgeon recommendation regarding valve replacement.
Hemoglobin dropped again, now status post 2 more units of blood transfusion.
Repeat echocardiogram shows
1. Normal left ventricular size, wall thickness and systolic function. No regional wall motion abnormalities are seen.
2. Ejection fraction is 60-65% by visual assesment.
3. Trace mitral valve regurgitation. Mobile echodensity consistent with known endocarditis seen near the mitral valve posterior leaflet annulus.
4. Moderate circumferential pericardial effusion without evidence of tamponade physiology.
5. Compared to a prior echo from December 14 2024, which was reviewed, there is now a moderate pericardial effusion, findings are otherwise similar.
6. Fair image quality.
KELI 12/29/2024: EF 65%, moderate in size partially mobile echodensity attached to the mitral valve annulus and also at the posterior leaflet of P1/P2, eccentric jet of moderate MR present around echodensity/vegetation, moderate pericardial effusion
Pericardiocentesis 01/01.
Assessment/plan:
Septic shock secondary to MRSA/MSSA bacteremia:
- Off vasopressors and downgraded to general medical floors
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
- Afebrile since 12/11, leukocytosis resolved
- Transesophageal echocardiogram 12/06 showed large mitral annulus vegetation
- ID following, continue antibiotics with vancomycin and nafcillin, repeat cultures negative since 12/13
- Continue antibiotics with vancomycin and nafcillin through 01/23/2025 (6 weeks from sterile cultures on 12/13)
- status post 15 tooth extraction 12/25, follow-up CT surgeon recommendation regarding valve replacement
- Repeat KELI 12/29 showed moderately sized partially mobile echodensity attached to the mitral valve annulus and also the posterior leaflet of P1/P2, also showed moderate pericardial effusion
- Pericardiocentesis 01/01 with approximately 350 cc of sanguinous output, cultures with no growth to date, drain left in place initially but was removed evening of 01/03, patient feeling well
- Awaiting rehab placement for ongoing antibiotic administration
Pericardial effusion:
- Pericardiocentesis 01/01 with 350 cc of sanguinous output, cultures with no growth to date, drain initially left in place with very minimal output, drain was later removed 01/03
Polysubstance abuse:
- Long history of injection drug abuse
- Now doing well with initiation of buprenorphine treatment, currently 16 mg sublingual daily and 4 mg at night which we will continue
- Will need coordination with [facility] at time of hospital discharge
Anemia requiring transfusion
- Transfused 1 unit PRBCs for hemoglobin of 7.2 on 12/19, a second unit PRBCs 12/21 for hemoglobin 6.9, hemoglobin appropriately improved, remained stable around 7.5
- No evidence of active bleeding, will attempt to limit blood draws
- Hemoglobin again dropped below 7.0 on 12/27 and 8/7, he was transfused 2 additional units of PRBCs at that time with subsequent improvement in hemoglobin
- Hemoglobin dropped to 8.1 01/04 possibly due to sanguinous pericardial output, remains hemodynamically stable, hemoglobin stable at 8.4 on repeat H&H
- Currently stable, Will monitor
Acute hypoxic respiratory failure.
Ventilation dependent respiratory failure.
12/13
Patient extubated
Acute toxic metabolic encephalopathy:
- EEG with no acute epileptiform activity captured
- Encephalopathy likely multifactorial due to bacteremia, opiate withdrawal, and and suspected septic emboli to brain
- MRI brain consistent with suspicion for septic emboli, repeat CT brain shows stable findings
- Now resolved, patient at baseline mental status, extubated 12/13
Left upper extremity DVT involving brachial vein
Given his multiple scattered acute infarctions with microhemorrhages, patient is high risk for ICH if systemic anticoagulation started
PICC line removed repeat ultrasound shows left brachial vein nonocclusive DVT.
continue subcu heparin.
Hypomagnesemia:
- Resolved, monitor
LE:
- Resolved
Hypokalemia:
- Resolved
- Monitor
Rhabdomyolysis:
- Resolved
Elevated LFTs:
- Suspect due to severe sepsis
- Resolved, monitor with treatment as above
Pancreatitis:
- Resolved
Lactic acidosis:
- Resolved, continue to monitor
CODE STATUS: Full code
DVT prophylaxis: Subcu heparin
Diet: Regular diet
Total time spent on today's encounter was 43 minutes which included time spent in counseling the patient/family regarding diagnosis and treatment plan as listed above, goals of care, and symptom management. Case was discussed with nursing staff,
specialists, and care coordinators/case management. All labs and imaging personally reviewed by me. Remainder the time spent in detailed review of previous records, lab data, imaging, and other medical provider documentation.
Anticipated Discharge: > 48 hours
Subjective/Interval History
-
Date of Service: January 06, 2025
Patient was seen and examined at bedside this morning. Sleepy. No acute events overnight.
Objective Data
-
Vital Signs:
Vital Signs
Temp Pulse Resp BP Pulse Ox
98.4 F 95 18 147/93 97
01/06/25 07:15 01/06/25 09:25 01/06/25 07:15 01/06/25 09:25 01/06/25 07:15
I&O
01/05/25 01/06/25 01/07/25
06:59 06:59 06:59
Intake Total 480 / 480 0 / 2089 100 / 100
Output Total 1300 / 1300 3725 / 3725 800 / 800
Balance -820 / -820 -1635 / -1635 -700 / -700
Review of Systems
-
History Source: Patient
All other systems: Reviewed and negative
Physical Exam
-
General: No Apparent Distress
[2025-01-06 11:15] VITALS: BP 144/95
--- NOTE | 2025-01-06 11:45 | W.PN.ID1 ---
Date of Service
Date of Service: January 06, 2025
Today's Communication
Continue current antibiotics. See below�
Assessment / Plan
# Complicated Staphylococcus aureus (MRSA/MSSA) bacteremia
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
# Multiple embolic CVA
# New dx of hepatitis C infection: Hepatitic C Ab positive; HCV RNA 2,190,000
# LUE PICC associated DVT, PICC dc'd 12/14
# Fever and leukocytosis resolved
# s/p Intubated 12/03, extubated 12/12/24
# Polysubstance abuse (cocaine and fentanyl 'muscle-ling')
# hx MRSA wound abscesses (2010)
# hx of Viridans strep bacteremia (2010)
- 12/14 repeat TTE: 1.6 x 2 cm echodensity MV
- 12/12/24 Last positive Blood cx MRSA
- 12/13/24 forward, negtive blood cx's.
- 12/14/24 PICC D/C'ed; tip cx without growth
- HIV screen negative.
- Hepatitic C Ab positive; HCV RNA 2,190,000
- anemia requiring pRBC transfusion
- 12/25 s/p 15 tooth extractions
- 12/29 Repeat KELI MV vegetation smaller, but mitral regurgitation worse, new moderate pericardial effusion.
- 01/01 s/p pericardiocentesis, cx neg to date
- There is discrepancy between blood cx PCR (identified as MRSA) and phenotype (identified as MSSA)
Cefoxitin induced test negative. PBP2a negative.
Discussed with S. aureus experts.
Best to treat as both MRSA and MSSA since there are only few publications regarding this particular strain of S. aureus.
- Continue IV Vancomycin and Nafcillin 2g IV q4h (both crosses blood-brain barrier), 6 weeks of IV antibiotics from negative blood cx, through 01/23/2025
- Monitor renal function and LFT's while on nafcillin.
- Close monitoring of vancomycin levels to prevent nephrotoxicity. Appreciate pharmacists.
- Eventual referral to sprinkler fitter for HCV treatment.
Chief Complaint
-: Bacteremia and Other (embolic CVA)
Subjective / Review of Systems
Review of Systems: No Fever and No Chills
Vital Signs / Physical Exam
Vital Signs
Vital Signs
Temp Pulse Resp BP Pulse Ox
98.6 F 93 16 144/95 97
01/06/25 11:15 01/06/25 11:15 01/06/25 11:15 01/06/25 11:15 01/06/25 11:15
Physical Exam
Constitutional: No Acute Distress
Pulmonary: Non Labored
Gastrointestinal: Soft and Non Distended
Extremities: Edema (BLE improving)
Neurological: AO x 3
Lines: PICC
Objective Data
Lab Data
Lab Results
01/05/25 03:34
01/02/25 05:05
PT 15.1 Sec (11.4-14.6) H 12/26/24 06:08
INR 1.16 12/26/24 06:08
APTT 30.9 Sec (23.4-35.0) 12/26/24 06:08
Estimated Creat Clear > 125 ml/min 01/02/25 05:05
Lactic Acid 1.3 mmol/L (0.7-2.0) 12/05/24 16:46
Total Bilirubin 0.8 mg/dl (0.2-1.3) 12/26/24 06:08
AST 21 U/L (17-59) 12/26/24 06:08
ALT 13 U/L (0-50) 12/26/24 06:08
Alkaline Phosphatase 103 U/L (38-126) 12/26/24 06:08
Amylase 139 U/L (30-110) H 12/05/24 04:04
Most recent labs reviewed.
Micro Results:
08/11/25 11:21 Body Fluid Culture - Final
Pericardial Fluid No Growth After 72 Hours
Gram Stain - Final
01/01/25 11:21 Acid Fast Bacilli Smear - Preliminary
Pericardial Fluid Acid Fast Bacilli Culture - Preliminary
01/01/25 11:23 Fungal Smear - Final
Pericardial Fluid No yeast or fungal elements seen.
01/01/25 11:21 Fungal Culture - Preliminary
Pericardial Fluid Culture in progress.
Positive cultures are reported as soon as detected.
Final report to follow in four to five weeks.
12/17/24 07:12 Blood Culture - Final
Blood/Venous No Growth - Final Report
12/16/24 03:40 Blood Culture - Final
Blood/Venous No Growth - Final Report
12/15/24 04:33 Blood Culture - Final
Blood/Venous No Growth - Final Report
12/14/24 16:37 Blood Culture - Final
Blood/Venous No Growth - Final Report
12/12/24 03:10 Blood Culture - Final
Blood/Venous Staph aureus MRSA
Gram Stain - Final
12/13/24 04:07 Blood Culture - Final
Blood/Venous No Growth - Final Report
12/14/24 12:53 Catheter Tip Culture - Final
Picc No Growth After 72 Hours
12/09/24 03:54 Blood Culture - Final
Blood/Venous Staph aureus MRSA
Gram Stain - Final
12/08/24 03:02 Blood Culture - Final
Blood/Venous Staph aureus MRSA
Gram Stain - Final
12/11/24 03:33 Blood Culture - Final
Blood/Venous No Growth - Final Report
12/10/24 03:14 Blood Culture - Final
Blood/Venous No Growth - Final Report
12/07/24 04:06 Blood Culture - Final
Blood/Venous Staph aureus MRSA
Gram Stain - Final
12/03/24 08:20 Blood Culture - Final
Blood/Venous Staph aureus MRSA
Gram Stain - Final
12/03/24 09:21 Blood Culture - Final
Blood/Venous Staph aureus MRSA
Gram Stain - Final
12/05/24 16:46 Blood Culture - Final
Blood/Venous Staph aureus MRSA
Gram Stain - Final
12/05/24 13:38 Blood Culture - Final
Blood/Venous Staph aureus MRSA
Gram Stain - Final
12/03/24 08:38 Urine Culture - Final
Urine S aureus-Methicillin Sensitive
12/03/24 18:44 MRSA Screen - Final
Nose No Methicillin Resistant Staphylococcus aureus isolated.
Imaging:
12/05/24 CT a/p: Mild inflammatory change adjacent to the body and tail of the pancreas, suggestive of mild pancreatitis. No peripancreatic fluid collection appreciated. No evidence of intestinal obstruction or bowel inflammatory process. Study is
slightly limited by lack of intravenous or oral contrast. Gallbladder sludge without evidence of acute cholecystitis. No radiopaque gallstones are seen.
12/04/24 MRI brain: Numerous scattered acute infarctions in a distribution that is most suggestive of embolic phenomenon in the setting of known IV drug abuse. Multiple small microhemorrhages are also demonstrated.
12/03/24 CXR: Clear lungs.
12/03/[address]: Possible cortical petechial hemorrhages in the left frontal lobe and left occipital lobe. Possible small old infarct, periventricular small vessel ischemic disease or edema due to underlying mass in the left occipital lobe.
[2025-01-06 15:20] VITALS: BP 127/78
[2025-01-06 19:29] VITALS: BP 124/82
[2025-01-06] MEDS: DESENEX/MITRAZOL/ZEASORB 1 APPLIC TOPICAL (19:31)
[2025-01-06] MEDS: MELATONIN 10 MG PO (22:29)
[2025-01-06] MEDS: SUBUTEX 4 MG SL (22:33)
[2025-01-06 23:42] VITALS: BP 131/89
[2025-01-07] VITALS (7 sets, daily range): BP systolic 117–139; BP diastolic 70–92; BMI 24.1
[2025-01-07] MEDS: NAFCIL 108 MG IV ×6 (02:00→21:19)
[2025-01-07] MEDS: FLUSH (NSS) 2 FLUSH IV (02:00)
[2025-01-07] MEDS: FLUSH (NSS) 3 FLUSH IV (05:02)
[2025-01-07] MEDS: VANCOCIN 530 MG IV (06:02)
--- NOTE | 2025-01-07 08:14 | PHA.VAN.FU ---
Vancomycin Assessment / Plan
- Assessment
Renal Function: No New Labs Today
In the past 24 hrs, patient has been: Afebrile
Concomitant Antimicrobials: Nafcillin
- Dosing Plan
Continue: Vanc 1500mg IV q24H
- Monitoring Plan
Peak Level: 01/07 930
Trough Level: 01/08 530
- Follow Up
Pharmacy will continue to follow.
Vancomycin Follow UP
- -
Patient Age: 39
Patient Sex: Male
Vancomycin Day #: 36
Indication: Bacteremia
Requesting Provider: Dr. Fofana / Teto
Pertinent Antimicrobial Allergies:
NKDA
Height / Weight:
Height 6 ft 2 in
Actual Weight 85.23 kg
IBW in k.2
Pertinent Past Medical History: IV JOCELIN
- Vital Signs / Lab Results
Temp Pulse Resp BP Pulse Ox
98.4 F 91 16 121/70 99
01/07/25 03:32 01/07/25 03:32 01/07/25 03:32 01/07/25 03:32 01/07/25 03:32
Therapeutic Drug Monitoring
Vancomycin Peak 26.0 ug/ml (18-26) 12/31/24 09:30
Vancomycin Trough 10.7 ug/ml (5-20) 01/02/25 05:05
Random Vancomycin 13.9 ug/ml 12/21/24 03:53
[2025-01-07] MEDS: TYLENOL 1000 MG PO ×3 (09:47→23:16)
[2025-01-07] MEDS: VITAMIN B1 100 MG PO (09:47)
[2025-01-07] MEDS: MAGNESIUM OXIDE 500 MG PO (09:47)
[2025-01-07] MEDS: THERAGRAN 1 TABLET PO (09:47)
[2025-01-07] MEDS: LOW STRENGTH ASPIRIN 81 MG PO (09:47)
[2025-01-07] MEDS: DESENEX/MITRAZOL/ZEASORB TOPICAL ×2 (09:47)
[2025-01-07] MEDS: CATAPRES 0.3 MG PO ×4 (09:47→21:16)
[2025-01-07] MEDS: COREG 25 MG PO ×2 (09:47→20:14)
[2025-01-07] MEDS: HEPARIN 5000 UNITS SC ×3 (09:47→23:16)
[2025-01-07] MEDS: ALDACTONE 25 MG PO (09:48)
[2025-01-07] MEDS: SUBUTEX 16 MG SL (09:48)
[2025-01-07] MEDS: LASIX 40 MG IV (09:48)
--- NOTE | 2025-01-07 12:27 | W.PN.HOSP.TC ---
Today's Communication/Plan
-
Assessment / Plan
Assessment / Plan
General: No Apparent Distress, Comfortable and Conversant
HEENT: NormoCephalic, Moist mucous membranes, Atraumatic, poor dentition
Respiratory: Clear and Non Labored Respirations
Cardiac: S1/S2 and Regular Rhythm; No Rub or Gallop, pericardial drain removed
GI: Soft, Non Tender, Non Distended and Normal Bowel Sounds
Musculoskeletal: No Edema, no deformity
: NO Balderas
Neuro: Awake, Alert, Nonfocal/grossly intact
Psych: Calm and Intact Judgment/Insight
Impression:
Patient is a 39-year-old male with a medical history of polysubstance abuse (skin popping with fentanyl) who was admitted after presentation with altered mental status. He was brought in by his parents with tremors and confusion. His mental status
abruptly declined and he was intubated for airway protection. CT brain showed possible left occipital lobe mass. His blood cultures are positive for MRSA. He was initially being managed in the ICU for treatment of encephalopathy and bacteremia.
Patient extubated and downgraded to general medical floors.
CT surgery recommending dental extraction while in the hospital and consider valve replacement during this admission.
status post 15 tooth extraction 01/04, follow-up CT surgeon recommendation regarding valve replacement.
Hemoglobin dropped again, now status post 2 more units of blood transfusion.
Repeat echocardiogram shows
1. Normal left ventricular size, wall thickness and systolic function. No regional wall motion abnormalities are seen.
2. Ejection fraction is 60-65% by visual assesment.
3. Trace mitral valve regurgitation. Mobile echodensity consistent with known endocarditis seen near the mitral valve posterior leaflet annulus.
4. Moderate circumferential pericardial effusion without evidence of tamponade physiology.
5. Compared to a prior echo from December 14 2024, which was reviewed, there is now a moderate pericardial effusion, findings are otherwise similar.
6. Fair image quality.
KELI 12/29/2024: EF 65%, moderate in size partially mobile echodensity attached to the mitral valve annulus and also at the posterior leaflet of P1/P2, eccentric jet of moderate MR present around echodensity/vegetation, moderate pericardial effusion
Pericardiocentesis 01/01.
Assessment/plan:
Septic shock secondary to MRSA/MSSA bacteremia:
- Off vasopressors and downgraded to general medical floors
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
- Afebrile since 12/11, leukocytosis resolved
- Transesophageal echocardiogram 12/06 showed large mitral annulus vegetation
- ID following, continue antibiotics with vancomycin and nafcillin, repeat cultures negative since 12/13
- Continue antibiotics with vancomycin and nafcillin through 01/23/2025 (6 weeks from sterile cultures on 12/13)
- status post 15 tooth extraction 12/25, follow-up CT surgeon recommendation regarding valve replacement
- Repeat KELI 12/29 showed moderately sized partially mobile echodensity attached to the mitral valve annulus and also the posterior leaflet of P1/P2, also showed moderate pericardial effusion
- Pericardiocentesis 01/01 with approximately 350 cc of sanguinous output, cultures with no growth to date, drain left in place initially but was removed evening of 01/03, patient feeling well
- Awaiting rehab placement for ongoing antibiotic administration
Pericardial effusion:
- Pericardiocentesis 01/01 with 350 cc of sanguinous output, cultures with no growth to date, drain initially left in place with very minimal output, drain was later removed 01/03
Polysubstance abuse:
- Long history of injection drug abuse
- Now doing well with initiation of buprenorphine treatment, currently 16 mg sublingual daily and 4 mg at night which we will continue
- Will need coordination with [facility] at time of hospital discharge
Anemia requiring transfusion
- Transfused 1 unit PRBCs for hemoglobin of 7.2 on 12/19, a second unit PRBCs 12/21 for hemoglobin 6.9, hemoglobin appropriately improved, remained stable around 7.5
- No evidence of active bleeding, will attempt to limit blood draws
- Hemoglobin again dropped below 7.0 on 12/27 and 8/7, he was transfused 2 additional units of PRBCs at that time with subsequent improvement in hemoglobin
- Hemoglobin dropped to 8.1 01/04 possibly due to sanguinous pericardial output, remains hemodynamically stable, hemoglobin stable at 8.4 on repeat H&H
- Currently stable, Will monitor
Acute hypoxic respiratory failure.
Ventilation dependent respiratory failure.
12/13
Patient extubated
Acute toxic metabolic encephalopathy:
- EEG with no acute epileptiform activity captured
- Encephalopathy likely multifactorial due to bacteremia, opiate withdrawal, and and suspected septic emboli to brain
- MRI brain consistent with suspicion for septic emboli, repeat CT brain shows stable findings
- Now resolved, patient at baseline mental status, extubated 12/13
Left upper extremity DVT involving brachial vein
Given his multiple scattered acute infarctions with microhemorrhages, patient is high risk for ICH if systemic anticoagulation started
PICC line removed repeat ultrasound shows left brachial vein nonocclusive DVT.
continue subcu heparin.
Hypomagnesemia:
- Resolved, monitor
LE:
- Resolved
Hypokalemia:
- Resolved
- Monitor
Rhabdomyolysis:
- Resolved
Elevated LFTs:
- Suspect due to severe sepsis
- Resolved, monitor with treatment as above
Pancreatitis:
- Resolved
Lactic acidosis:
- Resolved, continue to monitor
CODE STATUS: Full code
DVT prophylaxis: Subcu heparin
Diet: Regular diet
Total time spent on today's encounter was 43 minutes which included time spent in counseling the patient/family regarding diagnosis and treatment plan as listed above, goals of care, and symptom management. Case was discussed with nursing staff,
specialists, and care coordinators/case management. All labs and imaging personally reviewed by me. Remainder the time spent in detailed review of previous records, lab data, imaging, and other medical provider documentation.
Anticipated Discharge: > 48 hours
Subjective/Interval History
-
Date of Service: January 07, 2025
Patient was seen and examined at bedside this morning. Continue IV antibiotics for infective endocarditis.
Objective Data
-
Vital Signs:
Vital Signs
Temp Pulse Resp BP Pulse Ox
98.3 F 95 18 139/90 98
01/07/25 11:00 01/07/25 11:00 01/07/25 11:00 01/07/25 11:00 01/07/25 11:00
I&O
01/06/25 01/07/25 01/08/25
06:59 06:59 06:59
Intake Total 2089 / 2089 1960 / 1959
Output Total 3725 / 3725 4525 / 4525
Balance -1635 / -1635 -2565 / -2565
Review of Systems
-
History Source: Patient
All other systems: Reviewed and negative
Physical Exam
-
General: No Apparent Distress
[2025-01-07] MEDS: DESENEX/MITRAZOL/ZEASORB 1 APPLIC TOPICAL (20:15)
[2025-01-07] MEDS: MELATONIN 10 MG PO (21:16)
[2025-01-07] MEDS: SUBUTEX 4 MG SL (22:45)
[2025-01-08] VITALS (7 sets, daily range): BP systolic 116–135; BP diastolic 75–91; BMI 24.0
[2025-01-08] MEDS: NAFCIL 108 MG IV ×6 (01:23→21:43)
[2025-01-08] MEDS: VANCOCIN 530 MG IV (06:27)
[2025-01-08] MEDS: LASIX 40 MG IV (07:47)
[2025-01-08] MEDS: COREG 25 MG PO ×2 (07:48→20:12)
[2025-01-08] MEDS: SUBUTEX 16 MG SL (07:48)
[2025-01-08] MEDS: THERAGRAN 1 TABLET PO (07:49)
[2025-01-08] MEDS: VITAMIN B1 100 MG PO (07:49)
[2025-01-08] MEDS: ALDACTONE 25 MG PO (07:49)
[2025-01-08] MEDS: LOW STRENGTH ASPIRIN 81 MG PO (07:49)
[2025-01-08] MEDS: MAGNESIUM OXIDE 500 MG PO (07:49)
[2025-01-08] MEDS: CATAPRES 0.3 MG PO ×4 (07:49→21:43)
[2025-01-08] MEDS: HEPARIN 5000 UNITS SC ×3 (07:50→23:12)
[2025-01-08] MEDS: TYLENOL 1000 MG PO ×3 (07:50→23:12)
[2025-01-08] MEDS: DESENEX/MITRAZOL/ZEASORB 1 APPLIC TOPICAL ×2 (07:55→20:12)
--- NOTE | 2025-01-08 09:08 | PHA.VAN.FU ---
Vancomycin Assessment / Plan
- Assessment
Renal Function: Stable
WBC's are: WNL
In the past 24 hrs, patient has been: Afebrile (nafcillin)
- Assessment - Therapeutic Drug Monitoring
Extrapolated Cmax (mcg/mL): 28.8
Peak level was drawn: Appropriately (approx. 2H after end of infusion)
Extrapolated Cmin (mcg/mL): 11.8
Trough Drawn: Appropriately (prior to 0600 dose)
Calculated AUC (mcg*h/mL): 475
Calculated ke: 0.0459
Calculated half life (H): 15.1
Calculated Vd (L): 68.74
Calculated Vanc CL (ml/min): 52.56
- Dosing Plan
Continue: vancomycin 1500 mg Q24H
- Monitoring Plan
Level(s) appropriate: Recheck trough at minimum of weekly intervals, Repeat sooner for changes in renal function or clinical status
- Follow Up
Pharmacy will continue to follow.
Vancomycin Follow UP
- -
Patient Age: 39
Patient Sex: Male
Vancomycin Day #: 37
Indication: Bacteremia
Requesting Provider: Dr. Fofana / Teto
Pertinent Antimicrobial Allergies:
NKDA
Height / Weight:
Height 6 ft 2 in
Actual Weight 84.595 kg
IBW in k.2
Pertinent Past Medical History: IV JOCELIN
- Vital Signs / Lab Results
Temp Pulse Resp BP Pulse Ox
98.5 F 93 16 131/85 99
01/08/25 07:23 01/08/25 07:23 01/08/25 07:23 01/08/25 07:23 01/08/25 07:23
Therapeutic Drug Monitoring
Vancomycin Peak 28.8 ug/ml (18-26) H 01/07/25 09:33
Vancomycin Trough 11.8 ug/ml (5-20) 01/08/25 05:00
Random Vancomycin 13.9 ug/ml 12/21/24 03:53
--- NOTE | 2025-01-08 11:01 | W.PN.CARDCBS ---
Addendum entered and electronically signed by Chilo Ignacio DO 01/08/25 11:47:
I saw and examined the patient.
The Transportation Refrigeration Technician's note was reviewed and I agree with the note.
Comment:
Plan:
Admitted with confusion and generalized weakness, changes in urine output and back pain. Then developed VDRF in the setting of sepsis, septic shock, TME, brain lesions concerning for embolic disease and rhabdo. KELI with evidence of large
endocarditis/vegetations attached to the mitral annulus. Patient receiving IV antibiotics and awaiting acute care rehab placement. Required pericardiocentesis on 01/01/2025.
Cont IV abx as per ID. CT surgery evaluated. No current plan for surgery.
For now CT surgery continuing medical therapy for MSSA/MRSA bacteremia with plan for surgery if he decompensates. -Patient had 15 dental extractions on 12/25/2024
KELI repeated on 12/29/2024 and there is now moderate MR.
H/H remains stable with last transfusion was on 12/28/2024 for Hgb 6.7. Hgb is stable at 8.4 on labs reviewed by me 01/05/2025.
On 12/22/2024 the haptoglobin level was elevated at 229 and reticulocyte count elevated at 4.4. Suspect anemia is multifactorial including some element of hemolysis but also anemia of chronic
disease in the setting of endocarditis.
Prior evidence of LUE DVT and patient is not being treated with OAC due to risk of hemorrhage with septic emboli on MRI of brain earlier this admission.
has made referrals to two dozen different acute care rehab and SNF facilities and patient has been denied by all of them for his history of IV drug abuse and for the need for IV antibiotics.
-ID is recommending 6 weeks of IV antibiotics to run through 01/23/25.
Cont IV diuresis, wt improving to 186, highest wt was 197. He is not quite at his dry wt.
EF preserved at 55 to 65% by echoes this admission
-New to Coreg 25 mg BID this admission
-New to clonidine 0.3 mg QID this admission
-New to spironolactone 25 mg daily this admission
Patient had pericardiocentesis for 400 mL of bloody fluid on 01/01/2025, microbiology and pathology was negative.
Original Note:
Today's Communication / Plan
-
Antibiotics scheduled to run through 01/23/2025
So far no rehab facility has been willing to take patient and no plans currently for CT surgery intervention for his MV endocarditis
Impression / Plan
-
PCP: None prior to admission
Primary Mold Maker Apprentice: none prior to admission
Impression:
Presentation with change in mental status 12/03/24
Sepsis
Septic emboli by brain MRI
MSSA bacteremia
Being treated as both MSSA and MRSA due to discrepancy between blood culture PCR and phenotype
Pancreatitis
TME
VDRF
LE
Rhabdomyolysis
Elevated LFTs
Newly diagnosed hepatitis C
Thrombocytopenia
Anemia, possibly hemolytic
Pericardial effusion s/p pericardiocentesis 01/01/25
Pericardial fluid culture negative for bacterial growth, negative for yeast or fungal element growth and negative for malignant cells
IVDA since age 19
Vaping
Hypokalemia
Acute HFpEF
LUE DVT
Dental extractions, 15 teeth removed as an inpatient on 12/25/2024
ECHO 12/04/2024: EF 55 to 60%, no regional wall motion abnormalities noted, no evidence of vegetation seen
KELI 12/07/2024: EF 65%, large endocarditis/vegetations attached to mitral annulus measuring ~1x1cm each, mild MR, no Tricuspid or aortic vegetations
Echo 12/14/2024: EF 60-65%, thick echodensity of mitral annulus 1.6x20 cm, trace MR
Echo 12/27/2024: EF 60-65%, trace MR, mobile echodensity consistent with known endocarditis seen near the mitral valve posterior leaflet annulus, moderate circumferential pericardial effusion without evidence of tamponade physiology
KELI 12/29/2024: EF 65%, moderate in size partially mobile echodensity attached to the mitral valve annulus and also at the posterior leaflet of P1/P2, eccentric jet of moderate MR present around echodensity/vegetation, moderate pericardial effusion
Plan:
-Admitted with confusion and generalized weakness, changes in urine output and back pain. Then developed VDRF in the setting of sepsis, septic shock, TME, brain lesions concerning for embolic disease and rhabdo. KELI with evidence of large
endocarditis/vegetations attached to the mitral annulus. Patient receiving IV antibiotics and awaiting acute care rehab placement. Required pericardiocentesis on 01/01/2025.
-CT surgery update note from 12/30/2024 reviewed by me and current plan is to continue with IV antibiotics. ID note reviewed by me and they are planning for ongoing treatment of MSSA and MRSA bacteremia with IV antibiotics until 01/23/2025. No clear
plan for surgical intervention at this time unless patient decompensates.
-KELI repeated on 12/29/2024 and there is now moderate MR.
-Last transfusion was on 12/28/2024 for Hgb 6.7. Hgb is stable at 8.4 on labs reviewed by me 01/05/2025.
-On 12/22/2024 the haptoglobin level was elevated at 229 and reticulocyte count elevated at 4.4. Suspect anemia is multifactorial including some element of hemolysis but also anemia of chronic disease in the setting of endocarditis.
-Patient is not on systemic anticoagulation nor OAC. There was evidence of LUE DVT and patient is not being treated with OAC due to risk of hemorrhage with septic emboli on MRI of brain earlier this admission.
-Patient had 15 dental extractions on 12/25/2024
-CM has made referrals to two dozen different acute care rehab and SNF facilities and patient has been denied by all of them for his history of IV drug abuse and for the need for IV antibiotics.
-ID is recommending 6 weeks of IV antibiotics to run through 01/23/25.
-Weight is stable at 186 lbs by my review of VS on 01/08/2025. Weight peaked at 197 lbs on 12/24/24. Patient ordered Lasix 40 mg IV daily. Patient was not taking a diuretic prior to admission.
-EF preserved at 55 to 65% by echoes this admission
-New to Coreg 25 mg BID this admission
-New to clonidine 0.3 mg QID this admission
-New to spironolactone 25 mg daily this admission
-Patient had pericardiocentesis for 400 mL of bloody fluid on 01/01/2025, microbiology reviewed by me and negative for bacterial growth on fluid cultures, negative for yeast or fungal elements and pathology was negative for malignancy.
Progress Note - Mold Maker Apprentice
Subjective
Date of Service: January 08, 2025
He feels he is getting stronger, he has been using rolling walker working with PT, but did not work with them over the weekend
Objective
Labs:
01/05/25 03:34
01/02/25 05:05
Labs
Hgb 8.4 g/dL (13.0-18.0) L 01/05/25 03:34
Hct 25.1 % (39.0-52.0) L 01/05/25 03:34
Plt Count 624 10^3/uL (130-400) H 01/02/25 05:05
PT 15.1 Sec (11.4-14.6) H 12/26/24 06:08
INR 1.16 12/26/24 06:08
APTT 30.9 Sec (23.4-35.0) 12/26/24 06:08
Sodium 135 mmol/L (135-145) 01/02/25 05:05
Potassium 3.8 mmol/L (3.5-5.1) 01/02/25 05:05
BUN 10 mg/dl (9-20) 01/02/25 05:05
Creatinine 0.7 mg/dL (0.7-1.3) 01/02/25 05:05
Glucose 94 mg/dl (70-99) 01/02/25 05:05
Vital Signs and I&O:
Vital Signs
Temp Pulse Resp BP Pulse Ox
98.5 F 93 16 131/85 99
01/08/25 07:23 01/08/25 07:23 01/08/25 07:23 01/08/25 07:23 01/08/25 07:23
Vital Signs
Temp Pulse Resp BP Pulse Ox
98.5 F 93 16 131/85 99
01/08/25 07:23 01/08/25 07:23 01/08/25 07:23 01/08/25 07:23 01/08/25 07:23
Intake & Output
01/06/25 01/07/25 01/08/25 01/09/25
06:59 06:59 06:59 06:59
Intake Total 2089 / 2089 1960 / 1960 2880 / 2880
Output Total 3725 / 3725 4525 / 4525 5235 / 5235 600 / 600
Balance -1635 / -1635 -2565 / -2565 -2355 / -2355 -600 / -600
Physical Exam
Physical Exam
GEN: NAD
LUNGS: RA
CV: Sinus on telemetry
--- NOTE | 2025-01-08 12:42 | W.PN.HOSP.TC ---
Today's Communication/Plan
-
Medically stable for discharge, pending placement.
Assessment / Plan
Assessment / Plan
Impression:
Patient is a 39-year-old male with a medical history of polysubstance abuse (skin popping with fentanyl) who was admitted after presentation with altered mental status. He was brought in by his parents with tremors and confusion. His mental status
abruptly declined and he was intubated for airway protection. CT brain showed possible left occipital lobe mass. His blood cultures are positive for MRSA. He was initially being managed in the ICU for treatment of encephalopathy and bacteremia.
Patient extubated and downgraded to general medical floors.
CT surgery recommending dental extraction while in the hospital and consider valve replacement during this admission.
status post 15 tooth extraction 01/04, follow-up CT surgeon recommendation regarding valve replacement.
Hemoglobin dropped again, now status post 2 more units of blood transfusion.
Repeat echocardiogram shows
1. Normal left ventricular size, wall thickness and systolic function. No regional wall motion abnormalities are seen.
2. Ejection fraction is 60-65% by visual assesment.
3. Trace mitral valve regurgitation. Mobile echodensity consistent with known endocarditis seen near the mitral valve posterior leaflet annulus.
4. Moderate circumferential pericardial effusion without evidence of tamponade physiology.
5. Compared to a prior echo from December 14 2024, which was reviewed, there is now a moderate pericardial effusion, findings are otherwise similar.
6. Fair image quality.
KELI 12/29/2024: EF 65%, moderate in size partially mobile echodensity attached to the mitral valve annulus and also at the posterior leaflet of P1/P2, eccentric jet of moderate MR present around echodensity/vegetation, moderate pericardial effusion
Pericardiocentesis 01/01.
Assessment/plan:
Septic shock secondary to MRSA/MSSA bacteremia:
- Off vasopressors and downgraded to general medical floors
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
- Afebrile since 12/11, leukocytosis resolved
- Transesophageal echocardiogram 12/06 showed large mitral annulus vegetation
- ID following, continue antibiotics with vancomycin and nafcillin, repeat cultures negative since 12/13
- Continue antibiotics with vancomycin and nafcillin through 01/23/2025 (6 weeks from sterile cultures on 12/13)
- status post 15 tooth extraction 12/25, follow-up CT surgeon recommendation regarding valve replacement
- Repeat KELI 12/29 showed moderately sized partially mobile echodensity attached to the mitral valve annulus and also the posterior leaflet of P1/P2, also showed moderate pericardial effusion
- Pericardiocentesis 01/01 with approximately 350 cc of sanguinous output, cultures with no growth to date, drain left in place initially but was removed evening of 01/03, patient feeling well
- Awaiting rehab placement for ongoing antibiotic administration
Pericardial effusion:
- Pericardiocentesis 01/01 with 350 cc of sanguinous output, cultures with no growth to date, drain initially left in place with very minimal output, drain was later removed 01/03
Polysubstance abuse:
- Long history of injection drug abuse
- Now doing well with initiation of buprenorphine treatment, currently 16 mg sublingual daily and 4 mg at night which we will continue
- Will need coordination with [facility] at time of hospital discharge
Anemia requiring transfusion
- Transfused 1 unit PRBCs for hemoglobin of 7.2 on 12/19, a second unit PRBCs 12/21 for hemoglobin 6.9, hemoglobin appropriately improved, remained stable around 7.5
- No evidence of active bleeding, will attempt to limit blood draws
- Hemoglobin again dropped below 7.0 on 12/27 and 12/28, he was transfused 2 additional units of PRBCs at that time with subsequent improvement in hemoglobin
- Hemoglobin dropped to 8.1 01/04 possibly due to sanguinous pericardial output, remains hemodynamically stable, hemoglobin stable at 8.4 on repeat H&H
- Currently stable, Will monitor
Acute hypoxic respiratory failure.
Ventilation dependent respiratory failure.
12/13
Patient extubated
Acute toxic metabolic encephalopathy:
- EEG with no acute epileptiform activity captured
- Encephalopathy likely multifactorial due to bacteremia, opiate withdrawal, and and suspected septic emboli to brain
- MRI brain consistent with suspicion for septic emboli, repeat CT brain shows stable findings
- Now resolved, patient at baseline mental status, extubated 12/13
Left upper extremity DVT involving brachial vein
Given his multiple scattered acute infarctions with microhemorrhages, patient is high risk for ICH if systemic anticoagulation started
PICC line removed repeat ultrasound shows left brachial vein nonocclusive DVT.
continue subcu heparin.
Hypomagnesemia:
- Resolved, monitor
LE:
- Resolved
Hypokalemia:
- Resolved
- Monitor
Rhabdomyolysis:
- Resolved
Elevated LFTs:
- Suspect due to severe sepsis
- Resolved, monitor with treatment as above
Pancreatitis:
- Resolved
Lactic acidosis:
- Resolved, continue to monitor
CODE STATUS: Full code
DVT prophylaxis: Subcu heparin
Diet: Regular diet
Disposition: Medically stable for discharge, pending placement.
Total time spent on today's encounter was 55 minutes which included time spent in counseling the patient/family regarding diagnosis and treatment plan as listed above, goals of care, and symptom management. Case was discussed with nursing staff,
specialists, and care coordinators/case management. All labs and imaging personally reviewed by me. Remainder the time spent in detailed review of previous records, lab data, imaging, and other medical provider documentation.
Anticipated Discharge: Today
Subjective/Interval History
-
Date of Service: January 08, 2025
Patient seen and examined at bedside, denies any chest pain or shortness of breath, no abdominal pain, no nausea, no vomiting, no diarrhea or constipation.
Objective Data
-
Vital Signs:
Vital Signs
Temp Pulse Resp BP Pulse Ox
98.5 F 93 16 131/85 99
01/08/25 07:23 01/08/25 07:23 01/08/25 07:23 01/08/25 07:23 01/08/25 07:23
I&O
01/07/25 01/08/25 01/09/25
06:59 06:59 06:59
Intake Total 1959 / 1959 2880 / 2880
Output Total 4525 / 4525 5235 / 5235 1400 / 1400
Balance -2565 / -2565 -2355 / -2355 -1400 / -1400
Physical Exam
-
General: Well Developed and Other (Pallor)
HEENT: Normocephalic and Atraumatic
Respiratory: Rales, Rhonchi and Crackles
Cardiac: Tachycardic
Breast: Deferred by me
GI: Soft, Nontender, Nondistended and Normal Bowel Sounds
Genito-urinary: No Costovertebral Tender
Musculoskeletal: No Clubbing, No Cyanosis and No Edema
Skin: Warm
Neuro: Awake and Alert
Psych: Calm
--- NOTE | 2025-01-08 13:44 | CM ---
Reviewed the chart notes and spoke with the patient regarding [facility] in [place] able to accept. Patient not agreeable. Patient will speak with parents. Explained it is the only facility thus far will to accept.
[facility] NPI# [id number]
Dr. Viktor Gallo NPI# [id number]
Plan: Discharge to SNF/rehab for continuation of IV abx once bed found and precert obtained.
[2025-01-08] MEDS: MELATONIN 10 MG PO (21:43)
[2025-01-08] MEDS: SUBUTEX 4 MG SL (21:43)
[2025-01-09] MEDS: NAFCIL 108 MG IV ×6 (02:00→21:38)
[2025-01-09 03:00] VITALS: BP 130/78
[2025-01-09 05:27] VITALS: BMI 23.6
[2025-01-09] MEDS: VANCOCIN 530 MG IV (05:58)
--- NOTE | 2025-01-09 07:21 | PHA.VAN.FU ---
Addendum entered and electronically signed by Yumiko Hirsch RPH 01/09/25 09:32:
Agree with plan below.
Patient's levels were appropriate yesterday - no levels today.
Patient has had consistently stable levels on current regimen - can follow once weekly
Original Note:
Vancomycin Assessment / Plan
- Assessment
Renal Function: Stable
WBC's are: WNL
In the past 24 hrs, patient has been: Afebrile
Concomitant Antimicrobials: nafcillin
- Assessment - Therapeutic Drug Monitoring
Peak level was drawn: Appropriately
Trough Drawn: Appropriately
Levels were drawn: At steady state
- Dosing Plan
Continue: 1500mg q24h
- Monitoring Plan
Level(s) appropriate: Recheck trough at minimum of weekly intervals, Repeat sooner for changes in renal function or clinical status
Next Level Due (Date): 01/15/25 (weekly troughs on Mondays)
- Follow Up
Pharmacy will continue to follow.
Vancomycin Follow UP
- -
Patient Age: 39
Patient Sex: Male
Vancomycin Day #: 38
Indication: Bacteremia
Requesting Provider: Dr. Fofana / Teto
Pertinent Antimicrobial Allergies:
NKDA
Height / Weight:
Height 6 ft 2 in
Actual Weight 83.37 kg
IBW in k.2
Pertinent Past Medical History: IV JOCELIN
- Vital Signs / Lab Results
Temp Pulse Resp BP Pulse Ox
97.6 F 89 16 130/78 97
01/09/25 03:00 01/09/25 03:00 01/09/25 03:00 01/09/25 03:00 01/09/25 03:00
Microbiology Results
01/01/25 11:21 Fungal Culture - Preliminary
Pericardial Fluid Culture in progress.
Positive cultures are reported as soon as detected.
Final report to follow in four to five weeks.
Therapeutic Drug Monitoring
Vancomycin Peak 28.8 ug/ml (18-26) H 01/07/25 09:33
Vancomycin Trough 11.8 ug/ml (5-20) 01/08/25 05:00
Random Vancomycin 13.9 ug/ml 12/21/24 03:53
[2025-01-09 07:25] VITALS: BP 142/97
[2025-01-09] MEDS: SUBUTEX 16 MG SL (07:39)
[2025-01-09] MEDS: MAGNESIUM OXIDE 500 MG PO (07:39)
[2025-01-09] MEDS: LOW STRENGTH ASPIRIN 81 MG PO (07:39)
[2025-01-09] MEDS: VITAMIN B1 100 MG PO (07:39)
[2025-01-09] MEDS: CATAPRES 0.3 MG PO ×4 (07:40→21:37)
[2025-01-09] MEDS: HEPARIN 5000 UNITS SC ×3 (07:40→23:46)
[2025-01-09] MEDS: LASIX 40 MG IV (07:40)
[2025-01-09] MEDS: TYLENOL 1000 MG PO ×3 (07:40→23:46)
[2025-01-09] MEDS: DESENEX/MITRAZOL/ZEASORB 1 APPLIC TOPICAL ×2 (07:40→20:12)
[2025-01-09] MEDS: THERAGRAN 1 TABLET PO (07:40)
[2025-01-09] MEDS: ALDACTONE 25 MG PO (07:40)
[2025-01-09] MEDS: COREG 25 MG PO ×2 (07:40→20:12)
[2025-01-09 08:15] LABS: Hematocrit 28.5 % (39.0-52.0); Hemoglobin 9.5 g/dL (13.0-18.0); Mean Corp Hgb Conc. 33.3 g/dL (33.0-37.0); Mean Corpuscular Volume 91.1 fL (80.0-94.0); Platelet Count 604 10^3/uL (130-400); Red Cell Dist. Width 16.4 % (11.5-14.5)
[2025-01-09 08:34] LABS: Blood Urea Nitrogen 12 mg/dl (9-20); Calcium 9.1 mg/dl (8.4-10.2); Carbon Dioxide 30 mmol/L (22-30); Chloride 103 mmol/L (98-107); Estimated Creatinine Clearance > 125 ml/min; Glucose 90 mg/dl (70-99); Potassium 5.0 mmol/L (3.5-5.1); Sodium 138 mmol/L (135-145); eGFR > 60.00
[2025-01-09 11:00] VITALS: BP 116/72
--- NOTE | 2025-01-09 11:01 | W.PN.HOSP.TC ---
Today's Communication/Plan
-
Medically stable for discharge, pending placement.
Assessment / Plan
Assessment / Plan
Impression:
Patient is a 39-year-old male with a medical history of polysubstance abuse (skin popping with fentanyl) who was admitted after presentation with altered mental status. He was brought in by his parents with tremors and confusion. His mental status
abruptly declined and he was intubated for airway protection. CT brain showed possible left occipital lobe mass. His blood cultures are positive for MRSA. He was initially being managed in the ICU for treatment of encephalopathy and bacteremia.
Patient extubated and downgraded to general medical floors.
CT surgery recommending dental extraction while in the hospital and consider valve replacement during this admission.
status post 15 tooth extraction 01/04, follow-up CT surgeon recommendation regarding valve replacement.
Hemoglobin dropped again, now status post 2 more units of blood transfusion.
Repeat echocardiogram shows
1. Normal left ventricular size, wall thickness and systolic function. No regional wall motion abnormalities are seen.
2. Ejection fraction is 60-65% by visual assesment.
3. Trace mitral valve regurgitation. Mobile echodensity consistent with known endocarditis seen near the mitral valve posterior leaflet annulus.
4. Moderate circumferential pericardial effusion without evidence of tamponade physiology.
5. Compared to a prior echo from December 14 2024, which was reviewed, there is now a moderate pericardial effusion, findings are otherwise similar.
6. Fair image quality.
KELI 12/29/2024: EF 65%, moderate in size partially mobile echodensity attached to the mitral valve annulus and also at the posterior leaflet of P1/P2, eccentric jet of moderate MR present around echodensity/vegetation, moderate pericardial effusion
Pericardiocentesis 01/01.
Pericardiocentesis drain removed.
Pending placement.
Assessment/plan:
Septic shock secondary to MRSA/MSSA bacteremia:
- Off vasopressors and downgraded to general medical floors
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
- Afebrile since 12/11, leukocytosis resolved
- Transesophageal echocardiogram 12/06 showed large mitral annulus vegetation
- ID following, continue antibiotics with vancomycin and nafcillin, repeat cultures negative since 12/13
- Continue antibiotics with vancomycin and nafcillin through 01/23/2025 (6 weeks from sterile cultures on 12/13)
- status post 15 tooth extraction 12/25, follow-up CT surgeon recommendation regarding valve replacement
- Repeat KELI 12/29 showed moderately sized partially mobile echodensity attached to the mitral valve annulus and also the posterior leaflet of P1/P2, also showed moderate pericardial effusion
- Pericardiocentesis 01/01 with approximately 350 cc of sanguinous output, cultures with no growth to date, drain left in place initially but was removed evening of 01/03, patient feeling well
- Awaiting rehab placement for ongoing antibiotic administration
Pericardial effusion:
- Pericardiocentesis 01/01 with 350 cc of sanguinous output, cultures with no growth to date, drain initially left in place with very minimal output, drain was later removed 01/03
Polysubstance abuse:
- Long history of injection drug abuse
- Now doing well with initiation of buprenorphine treatment, currently 16 mg sublingual daily and 4 mg at night which we will continue
- Will need coordination with [facility] at time of hospital discharge
Anemia requiring transfusion
- Transfused 1 unit PRBCs for hemoglobin of 7.2 on 12/19, a second unit PRBCs 12/21 for hemoglobin 6.9, hemoglobin appropriately improved, remained stable around 7.5
- No evidence of active bleeding, will attempt to limit blood draws
- Hemoglobin again dropped below 7.0 on 12/27 and 12/28, he was transfused 2 additional units of PRBCs at that time with subsequent improvement in hemoglobin
- Hemoglobin dropped to 8.1 01/04 possibly due to sanguinous pericardial output, remains hemodynamically stable, hemoglobin stable at 8.4 on repeat H&H
- Currently stable, Will monitor
Acute hypoxic respiratory failure.
Ventilation dependent respiratory failure.
12/13
Patient extubated
Acute toxic metabolic encephalopathy:
- EEG with no acute epileptiform activity captured
- Encephalopathy likely multifactorial due to bacteremia, opiate withdrawal, and and suspected septic emboli to brain
- MRI brain consistent with suspicion for septic emboli, repeat CT brain shows stable findings
- Now resolved, patient at baseline mental status, extubated 12/13
Left upper extremity DVT involving brachial vein
Given his multiple scattered acute infarctions with microhemorrhages, patient is high risk for ICH if systemic anticoagulation started
PICC line removed repeat ultrasound shows left brachial vein nonocclusive DVT.
continue subcu heparin.
Hypomagnesemia:
- Resolved, monitor
LE:
- Resolved
Hypokalemia:
- Resolved
- Monitor
Rhabdomyolysis:
- Resolved
Elevated LFTs:
- Suspect due to severe sepsis
- Resolved, monitor with treatment as above
Pancreatitis:
- Resolved
Lactic acidosis:
- Resolved, continue to monitor
CODE STATUS: Full code
DVT prophylaxis: Subcu heparin
Diet: Regular diet
Disposition: Medically stable for discharge, pending placement.
Total time spent on today's encounter was 55 minutes which included time spent in counseling the patient/family regarding diagnosis and treatment plan as listed above, goals of care, and symptom management. Case was discussed with nursing staff,
specialists, and care coordinators/case management. All labs and imaging personally reviewed by me. Remainder the time spent in detailed review of previous records, lab data, imaging, and other medical provider documentation.
Anticipated Discharge: Today
Subjective/Interval History
-
Date of Service: January 09, 2025
Patient seen and examined at bedside, denies any chest pain or shortness of breath, no abdominal pain, no nausea, no vomiting, no diarrhea or constipation.
Objective Data
-
Labs:
Laboratory Results
01/09/25
07:46
WBC 6.5
Hgb 9.5 L
Hct 28.5 L
Plt Count 604 H
Sodium 138
Potassium 5.0
Chloride 103
Carbon Dioxide 30
BUN 12
Creatinine 0.8
Glucose 90
Calcium 9.1
Vital Signs:
Vital Signs
Temp Pulse Resp BP Pulse Ox
98.4 F 101 16 142/97 99
01/09/25 07:25 01/09/25 07:25 01/09/25 07:25 01/09/25 07:25 01/09/25 07:25
I&O
01/08/25 01/09/25 01/10/25
06:59 06:59 06:59
Intake Total 2880 / 2880 2093
Output Total 5235 / 5235 3255 / 3255 1650 / 1650
Balance -2355 / -2355 -1161 / -1161 -1650 / -1650
Physical Exam
-
General: Well Developed and Other (Pallor)
HEENT: Normocephalic and Atraumatic
Respiratory: Rales, Rhonchi and Crackles
Cardiac: Tachycardic
Breast: Deferred by me
GI: Soft, Nontender, Nondistended and Normal Bowel Sounds
Genito-urinary: No Costovertebral Tender
Musculoskeletal: No Clubbing, No Cyanosis and No Edema
Skin: Warm
Neuro: Awake and Alert
Psych: Calm
--- NOTE | 2025-01-09 11:11 | W.PN.ID1 ---
Date of Service
Date of Service: January 09, 2025
Today's Communication
Continue abx's.
Assessment / Plan
# Complicated Staphylococcus aureus (MRSA/MSSA) bacteremia
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
# Multiple embolic CVA
# New dx of hepatitis C infection: Hepatitic C Ab positive; HCV RNA 2,190,000
# LUE PICC associated DVT, PICC dc'd 12/14
# Fever and leukocytosis resolved
# s/p Intubated 12/03, extubated 12/12/24
# Polysubstance abuse (cocaine and fentanyl 'muscle-ling')
# hx MRSA wound abscesses (2010)
# hx of Viridans strep bacteremia (2010)
- 12/14 repeat TTE: 1.6 x 2 cm echodensity MV
- 12/12/24 Last positive Blood cx MRSA
- 12/13/24 forward, negtive blood cx's.
- 12/14/24 PICC D/C'ed; tip cx without growth
- HIV screen negative.
- Hepatitic C Ab positive; HCV RNA 2,190,000
- anemia requiring pRBC transfusion
- 12/25 s/p 15 tooth extractions
- 12/29 Repeat KELI MV vegetation smaller, but mitral regurgitation worse, new moderate pericardial effusion.
- 01/01 s/p pericardiocentesis, cx neg to date
- There is discrepancy between blood cx PCR (identified as MRSA) and phenotype (identified as MSSA)
Cefoxitin induced test negative. PBP2a negative.
Discussed with S. aureus experts.
Best to treat as both MRSA and MSSA since there are only few publications regarding this particular strain of S. aureus.
- Continue IV Vancomycin and Nafcillin 2g IV q4h (both crosses blood-brain barrier), 6 weeks of IV antibiotics from negative blood cx, through 01/23/2025
- Monitor renal function and LFT's while on nafcillin.
- Close monitoring of vancomycin levels to prevent nephrotoxicity. Appreciate pharmacists.
- Eventual referral to [facility] for HCV treatment.
- As expected, none of the local SNF/Rehab accepts patient.
Chief Complaint
-: Bacteremia and Other (embolic CVA)
Subjective / Review of Systems
Feels well. No complaints.
Vital Signs / Physical Exam
Vital Signs
Vital Signs
Temp Pulse Resp BP Pulse Ox
98.4 F 101 16 142/97 99
01/09/25 07:25 01/09/25 07:25 01/09/25 07:25 01/09/25 07:25 01/09/25 07:25
Physical Exam
Constitutional: No Acute Distress and Comfortable
Eyes: Sclera Anicteric
Cardiovascular: Regular Rate and S1/S2
Pulmonary: Non Labored
Gastrointestinal: Soft and Non Distended
Extremities: Edema (BLE improving)
Neurological: AO x 3
Lines: PICC
Objective Data
Lab Data
Lab Results
01/09/25 07:46
01/09/25 07:46
PT 15.1 Sec (11.4-14.6) H 12/26/24 06:08
INR 1.16 12/26/24 06:08
APTT 30.9 Sec (23.4-35.0) 12/26/24 06:08
Estimated Creat Clear > 125 ml/min 01/09/25 07:46
Lactic Acid 1.3 mmol/L (0.7-2.0) 12/05/24 16:46
Total Bilirubin 0.8 mg/dl (0.2-1.3) 12/26/24 06:08
AST 21 U/L (17-59) 12/26/24 06:08
ALT 13 U/L (0-50) 12/26/24 06:08
Alkaline Phosphatase 103 U/L (38-126) 12/26/24 06:08
Amylase 139 U/L (30-110) H 12/05/24 04:04
Most recent labs reviewed.
Micro Results:
01/01/25 11:21 Fungal Culture - Preliminary
Pericardial Fluid Culture in progress.
Positive cultures are reported as soon as detected.
Final report to follow in four to five weeks.
01/01/25 11:21 Body Fluid Culture - Final
Pericardial Fluid No Growth After 72 Hours
Gram Stain - Final
01/01/25 11:21 Acid Fast Bacilli Smear - Preliminary
Pericardial Fluid Acid Fast Bacilli Culture - Preliminary
01/01/25 11:23 Fungal Smear - Final
Pericardial Fluid No yeast or fungal elements seen.
12/17/24 07:12 Blood Culture - Final
Blood/Venous No Growth - Final Report
12/16/24 03:40 Blood Culture - Final
Blood/Venous No Growth - Final Report
12/15/24 04:33 Blood Culture - Final
Blood/Venous No Growth - Final Report
12/14/24 16:37 Blood Culture - Final
Blood/Venous No Growth - Final Report
12/12/24 03:10 Blood Culture - Final
Blood/Venous Staph aureus MRSA
Gram Stain - Final
12/13/24 04:07 Blood Culture - Final
Blood/Venous No Growth - Final Report
12/14/24 12:53 Catheter Tip Culture - Final
Picc No Growth After 72 Hours
12/09/24 03:54 Blood Culture - Final
Blood/Venous Staph aureus MRSA
Gram Stain - Final
12/08/24 03:02 Blood Culture - Final
Blood/Venous Staph aureus MRSA
Gram Stain - Final
12/11/24 03:33 Blood Culture - Final
Blood/Venous No Growth - Final Report
12/10/24 03:14 Blood Culture - Final
Blood/Venous No Growth - Final Report
12/07/24 04:06 Blood Culture - Final
Blood/Venous Staph aureus MRSA
Gram Stain - Final
12/03/24 08:20 Blood Culture - Final
Blood/Venous Staph aureus MRSA
Gram Stain - Final
12/03/24 09:21 Blood Culture - Final
Blood/Venous Staph aureus MRSA
Gram Stain - Final
12/05/24 16:46 Blood Culture - Final
Blood/Venous Staph aureus MRSA
Gram Stain - Final
12/05/24 13:38 Blood Culture - Final
Blood/Venous Staph aureus MRSA
Gram Stain - Final
12/03/24 08:38 Urine Culture - Final
Urine S aureus-Methicillin Sensitive
12/03/24 18:44 MRSA Screen - Final
Nose No Methicillin Resistant Staphylococcus aureus isolated.
Imaging:
12/05/24 CT a/p: Mild inflammatory change adjacent to the body and tail of the pancreas, suggestive of mild pancreatitis. No peripancreatic fluid collection appreciated. No evidence of intestinal obstruction or bowel inflammatory process. Study is
slightly limited by lack of intravenous or oral contrast. Gallbladder sludge without evidence of acute cholecystitis. No radiopaque gallstones are seen.
12/04/24 MRI brain: Numerous scattered acute infarctions in a distribution that is most suggestive of embolic phenomenon in the setting of known IV drug abuse. Multiple small microhemorrhages are also demonstrated.
12/03/24 CXR: Clear lungs.
12/03/[address]: Possible cortical petechial hemorrhages in the left frontal lobe and left occipital lobe. Possible small old infarct, periventricular small vessel ischemic disease or edema due to underlying mass in the left occipital lobe.
--- NOTE | 2025-01-09 12:10 | CM ---
Addendum entered by Nayeli Holley RN 01/10/25 09:02:
Correction: [facility] decline patient in [facility].
Addendum entered by Nayeli Holley RN 01/09/25 12:17:
Additional referral sent via [facility].
Original Note:
Reviewed the chart notes and spoke with the attending. Attending requested a referral be sent to [facility]. Referral sent in [facility]. CM spoke with admissions liaison Lisa. Per Lisa, they are declining. CM continues to be
available to patient/family and is monitoring medical plan for needs at discharge.
Plan: Discharge to SNF once a bed is secured and auth obtained.
[2025-01-09 15:10] VITALS: BP 136/83
[2025-01-09 19:00] VITALS: BP 148/94
[2025-01-09] MEDS: MELATONIN 10 MG PO (21:37)
[2025-01-09] MEDS: SUBUTEX 4 MG SL (21:38)
[2025-01-09 23:25] VITALS: BP 120/70
[2025-01-10] VITALS (8 sets, daily range): BP systolic 105–152; BP diastolic 67–100; PULSE 98; O2SAT 98; BMI 23.6
[2025-01-10] MEDS: NAFCIL 108 MG IV ×6 (02:43→23:16)
--- NOTE | 2025-01-10 03:01 | DOWNTIME ---
There was a [employer] Operator Downtime on 01/10/2025 from 0100 to 01/10/2025 at 0235. Downtime documentation of patient's care, including medication administrations, has been reconciled in the electronic record per guidelines. Refer to the
patient's paper chart under the miscellaneous tab to see printed paper medication records and downtime forms.
[2025-01-10] MEDS: VANCOCIN 530 MG IV (06:16)
--- NOTE | 2025-01-10 07:48 | PHA.VAN.FU ---
Addendum entered and electronically signed by Yumiko Hirsch RPH 01/10/25 08:12:
Agree with assessment and plan
Original Note:
Vancomycin Assessment / Plan
- Assessment
Renal Function: No New Labs Today
In the past 24 hrs, patient has been: Afebrile
Concomitant Antimicrobials: nafcillin
- Dosing Plan
Continue: 1500mg q24h
- Monitoring Plan
Level(s) appropriate: Recheck trough at minimum of weekly intervals, Repeat sooner for changes in renal function or clinical status
Next Level Due (Date): 01/15/25 (weekly troughs on Mondays)
- Follow Up
Pharmacy will continue to follow.
Vancomycin Follow UP
- -
Patient Age: 39
Patient Sex: Male
Vancomycin Day #: 39
Indication: Bacteremia
Requesting Provider: Dr. Fofana / Teto
Pertinent Antimicrobial Allergies:
NKDA
Height / Weight:
Height 6 ft 2 in
Actual Weight 83.416 kg
IBW in k.2
Pertinent Past Medical History: IV JOCELIN
- Vital Signs / Lab Results
Temp Pulse Resp BP Pulse Ox
97.7 F 86 16 105/67 99
01/10/25 03:04 01/10/25 03:04 01/10/25 03:04 01/10/25 03:04 01/10/25 03:04
Lab Results - Hematology
01/09/25
07:46
WBC 6.5
Lab Results - Chemistry
01/09/25
07:46
BUN 12
Creatinine 0.8
Estimated Creat Clear > 125
Microbiology Results
01/01/25 11:21 Fungal Culture - Preliminary
Pericardial Fluid Culture in progress.
Positive cultures are reported as soon as detected.
Final report to follow in four to five weeks.
Therapeutic Drug Monitoring
Vancomycin Peak 28.8 ug/ml (18-26) H 01/07/25 09:33
Vancomycin Trough 11.8 ug/ml (5-20) 01/08/25 05:00
Random Vancomycin 13.9 ug/ml 12/21/24 03:53
[2025-01-10] MEDS: THERAGRAN 1 TABLET PO (08:57)
[2025-01-10] MEDS: CATAPRES 0.3 MG PO ×4 (08:57→21:06)
[2025-01-10] MEDS: SUBUTEX 16 MG SL (08:57)
[2025-01-10] MEDS: VITAMIN B1 100 MG PO (08:57)
[2025-01-10] MEDS: LOW STRENGTH ASPIRIN 81 MG PO (08:58)
[2025-01-10] MEDS: HEPARIN 5000 UNITS SC ×3 (08:58→23:16)
[2025-01-10] MEDS: COREG 25 MG PO ×2 (08:58→21:06)
[2025-01-10] MEDS: TYLENOL 1000 MG PO ×3 (08:58→23:16)
[2025-01-10] MEDS: ALDACTONE 25 MG PO (08:58)
[2025-01-10] MEDS: MAGNESIUM OXIDE 400 MG PO (08:59)
[2025-01-10] MEDS: LASIX 40 MG IV (08:59)
[2025-01-10] MEDS: DESENEX/MITRAZOL/ZEASORB 1 APPLIC TOPICAL ×2 (09:03→23:16)
--- NOTE | 2025-01-10 10:56 | W.PN.HOSP.TC ---
Today's Communication/Plan
-
Medically stable for discharge, pending placement.
Assessment / Plan
Assessment / Plan
Impression:
Patient is a 39-year-old male with a medical history of polysubstance abuse (skin popping with fentanyl) who was admitted after presentation with altered mental status. He was brought in by his parents with tremors and confusion. His mental status
abruptly declined and he was intubated for airway protection. CT brain showed possible left occipital lobe mass. His blood cultures are positive for MRSA. He was initially being managed in the ICU for treatment of encephalopathy and bacteremia.
Patient extubated and downgraded to general medical floors.
CT surgery recommending dental extraction while in the hospital and consider valve replacement during this admission.
status post 15 tooth extraction 01/04, follow-up CT surgeon recommendation regarding valve replacement.
Hemoglobin dropped again, now status post 2 more units of blood transfusion.
Repeat echocardiogram shows
1. Normal left ventricular size, wall thickness and systolic function. No regional wall motion abnormalities are seen.
2. Ejection fraction is 60-65% by visual assesment.
3. Trace mitral valve regurgitation. Mobile echodensity consistent with known endocarditis seen near the mitral valve posterior leaflet annulus.
4. Moderate circumferential pericardial effusion without evidence of tamponade physiology.
5. Compared to a prior echo from December 14 2024, which was reviewed, there is now a moderate pericardial effusion, findings are otherwise similar.
6. Fair image quality.
KELI 12/29/2024: EF 65%, moderate in size partially mobile echodensity attached to the mitral valve annulus and also at the posterior leaflet of P1/P2, eccentric jet of moderate MR present around echodensity/vegetation, moderate pericardial effusion
Pericardiocentesis 01/01.
Pericardiocentesis drain removed.
Pending placement.
Assessment/plan:
Septic shock secondary to MRSA/MSSA bacteremia:
- Off vasopressors and downgraded to general medical floors
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
- Afebrile since 12/11, leukocytosis resolved
- Transesophageal echocardiogram 12/06 showed large mitral annulus vegetation
- ID following, continue antibiotics with vancomycin and nafcillin, repeat cultures negative since 12/13
- Continue antibiotics with vancomycin and nafcillin through 01/23/2025 (6 weeks from sterile cultures on 12/13)
- status post 15 tooth extraction 12/25, follow-up CT surgeon recommendation regarding valve replacement
- Repeat KELI 12/29 showed moderately sized partially mobile echodensity attached to the mitral valve annulus and also the posterior leaflet of P1/P2, also showed moderate pericardial effusion
- Pericardiocentesis 01/01 with approximately 350 cc of sanguinous output, cultures with no growth to date, drain left in place initially but was removed evening of 01/03, patient feeling well
- Awaiting rehab placement for ongoing antibiotic administration
Pericardial effusion:
- Pericardiocentesis 01/01 with 350 cc of sanguinous output, cultures with no growth to date, drain initially left in place with very minimal output, drain was later removed 01/03
Polysubstance abuse:
- Long history of injection drug abuse
- Now doing well with initiation of buprenorphine treatment, currently 16 mg sublingual daily and 4 mg at night which we will continue
- Will need coordination with [facility] at time of hospital discharge
Anemia requiring transfusion
- Transfused 1 unit PRBCs for hemoglobin of 7.2 on 12/19, a second unit PRBCs 12/21 for hemoglobin 6.9, hemoglobin appropriately improved, remained stable around 7.5
- No evidence of active bleeding, will attempt to limit blood draws
- Hemoglobin again dropped below 7.0 on 12/27 and 12/28, he was transfused 2 additional units of PRBCs at that time with subsequent improvement in hemoglobin
- Hemoglobin dropped to 8.1 01/04 possibly due to sanguinous pericardial output, remains hemodynamically stable, hemoglobin stable at 8.4 on repeat H&H
- Currently stable, Will monitor
Acute hypoxic respiratory failure.
Ventilation dependent respiratory failure.
12/13
Patient extubated
Acute toxic metabolic encephalopathy:
- EEG with no acute epileptiform activity captured
- Encephalopathy likely multifactorial due to bacteremia, opiate withdrawal, and and suspected septic emboli to brain
- MRI brain consistent with suspicion for septic emboli, repeat CT brain shows stable findings
- Now resolved, patient at baseline mental status, extubated 12/13
Left upper extremity DVT involving brachial vein
Given his multiple scattered acute infarctions with microhemorrhages, patient is high risk for ICH if systemic anticoagulation started
PICC line removed repeat ultrasound shows left brachial vein nonocclusive DVT.
continue subcu heparin.
Hypomagnesemia:
- Resolved, monitor
LE:
- Resolved
Hypokalemia:
- Resolved
- Monitor
Rhabdomyolysis:
- Resolved
Elevated LFTs:
- Suspect due to severe sepsis
- Resolved, monitor with treatment as above
Pancreatitis:
- Resolved
Lactic acidosis:
- Resolved, continue to monitor
CODE STATUS: Full code
DVT prophylaxis: Subcu heparin
Diet: Regular diet
Disposition: Medically stable for discharge, pending placement.
Total time spent on today's encounter was 55 minutes which included time spent in counseling the patient/family regarding diagnosis and treatment plan as listed above, goals of care, and symptom management. Case was discussed with nursing staff,
specialists, and care coordinators/case management. All labs and imaging personally reviewed by me. Remainder the time spent in detailed review of previous records, lab data, imaging, and other medical provider documentation.
Anticipated Discharge: Today
Subjective/Interval History
-
Date of Service: January 10, 2025
Patient seen and examined at bedside, denies any chest pain or shortness of breath, no abdominal pain, no nausea, no vomiting, no diarrhea or constipation.
Objective Data
-
Vital Signs:
Vital Signs
Temp Pulse Resp BP Pulse Ox
98.7 F 98 16 149/98 100
01/10/25 07:59 01/10/25 08:59 01/10/25 07:59 01/10/25 08:59 01/10/25 07:59
I&O
01/09/25 01/10/25 01/11/25
06:59 06:59 06:59
Intake Total 2093 / 2093 2160 / 2160
Output Total 3255 / 3255 3450 / 3450
Balance -1161 / -1161 -1290 / -1290
Physical Exam
-
General: Well Developed and Other (Pallor)
HEENT: Normocephalic and Atraumatic
Respiratory: Rales, Rhonchi and Crackles
Cardiac: Tachycardic
Breast: Deferred by me
GI: Soft, Nontender, Nondistended and Normal Bowel Sounds
Genito-urinary: No Costovertebral Tender
Musculoskeletal: No Clubbing, No Cyanosis and No Edema
Skin: Warm
Neuro: Awake and Alert
Psych: Calm
--- NOTE | 2025-01-10 12:08 | CM ---
Reviewed the chart notes and spoke with attending. Per attending, Kehinde to review patient. PMR consult placed. Kehinde had previously denied per Phoebe Busby Director [employer]. CM continues to be available to patient/family and is monitoring
medical plan for needs at discharge.
Plan: Discharge to facility once found to accept and auth obtained.
--- NOTE | 2025-01-10 15:15 | CON.MD ---
Consultation - Medical
-
Chief Complaint:�Debility after MRSA sepsis and stroke
�
History of Present Illness:�39-year-old male with PMH (as below) presented to [facility] on 12/03/2024 with confusion and generalized weakness over 2 to 3-day, speaking gibberish and having pain all over the body. Found to have MRSA sepsis
with rhabdomyolysis, acute renal insufficiency, acute transaminitis and hypokalemia. He was started on IV antibiotics. CT head showed possible cortical petechial hemorrhage and possible mass occipital lobe. Urine drug screen positive for cocaine
and fentanyl. Parents are not aware that he is currently using cocaine. Last fentanyl use was day prior to admission. Treated for withdrawal. Required intubation for abrupt mental status decline for airway protection. 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
endocarditis with large mitral annulus vegetation. Patient had tooth extraction on 12/25 and preparation for valve replacement. Repeat KELI on 12/29 noting EF 65% and moderate size partially mobile echodensity and moderate pericardial effusion status
post pericardiocentesis on 01/01 with drain removal. Initiated on buprenorphine for polysubstance abuse. Required blood transfusion for anemia during the hospital stay. Also found a left upper extremity DVT involving the brachial vein with PICC
line removal with repeat ultrasound noting a left brachial vein nonocclusive DVT. Patient placed on subcutaneous heparin with no intracranial high risk for intracerebral hemorrhage.
�
Past Medical History:�Polysubstance dependence and abuse, MRSA bacteremia
Procedure History:�None
Family History:�None
�
Social History:�
Functional Level Premorbidly:�Independent with all activities�
Functional Level Currently:�Supervision for ADLs. Independent for bed mobility, supervision for transfers. Ambulating 350 feet supervision with no device.
�
Tobacco:�Vaping
Alcohol:�Occasional
Drug use:�Daily fentanyl use since the age of 20�
Lives with:�Parents
Number of floors:�2
# steps to enter:�2
# steps to second floor: Full flight
Potential First floor set up:�Yes
Driving:�Yes
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
�
�
Allergies:�
Allergy/AdvReac Type Severity Reaction Status Date / Time
No Known Drug Allergies Allergy Unknown Verified 12/03/24 11:44
�
Review of Systems:�
Constitutional: (x) Normal _
Eye: (x) Normal _
Ear/Nose/Throat: (x) Normal _
Respiratory: (x) Normal _
Cardiovascular: (x) Normal _
Gastrointestinal: (x) Normal _
Genitourinary: (x) Normal _
Musculoskeletal: (x) Normal _
Integumentary: (x) Normal _
Neurologic: (x) Normal _
Psychiatric: (x) Normal _
Endocrine: (x) Normal _
Hematologic/Lymphatic: (x) Normal _
Allergic/Immunologic: (x) Normal _
�
Medications:�
Active Current Visit Medication List
Category Date Time Status
Acetaminophen [Tylenol] Med 12/13/24 16:00 Active
1,000 mg PO Q8
Acetaminophen [Tylenol] Med 12/13/24 14:18 Active
650 mg PO Q4HPRN PRN
Aspirin Chewable [Low Strength Aspirin] Med 12/14/24 08:00 Active
81 mg PO DAILY
Buprenorphine [Subutex] Med 01/01/25 08:00 Active
16 mg SL DAILY@0800
Buprenorphine [Subutex] Med 12/28/24 10:49 Active
2 mg SL Q4HPRN PRN
Buprenorphine [Subutex] Med 01/05/25 22:00 Active
4 mg SL HS
Carvedilol [Coreg] Med 12/19/24 20:00 Active
25 mg PO BID
Clonidine [Catapres] Med 12/13/24 18:00 Active
0.3 mg PO QID
Dicyclomine [Bentyl] Med 12/13/24 15:26 Active
10 mg PO Q6HPRN PRN
Flush (0.9% Sodium Chloride) [Flush (Nss)] Med 12/28/24 11:00 Active
See Dose Instructions IV PER PROTOCOL
Furosemide [Lasix] Med 12/19/24 17:00 Active
40 mg IV DAILY
Heparin Med 12/13/24 16:00 Active
5,000 units SC Q8
HydrOXYZINE [Atarax] Med 12/13/24 15:26 Active
50 mg PO Q6HPRN PRN
Labetalol HCl [Trandate] Med 12/14/24 10:15 Active
10 mg IV Q6HPRN PRN
Loperamide [Imodium] Med 12/13/24 15:26 Active
2 mg PO Q4HPRN PRN
Magnesium Oxide Med 01/10/25 08:00 Active
400 mg PO DAILY
Melatonin Med 12/14/24 22:00 Active
10 mg PO HS
Miconazole Nitrate [Desenex/Mitrazol/Zeasorb] Med 12/20/24 20:00 Active
See Dose Instructions TOPICAL BID
Multivitamin [Theragran] Med 12/14/24 08:00 Active
1 tablet PO DAILY
Nafcillin [Nafcil] 2,000 mg Med 01/01/25 14:00 Active
0.9% Sodium Chloride 100 ml [Nss] 100 ml
IV Q4H
Naloxone [Narcan] Med 12/13/24 15:26 Active
0.4 mg IV Q5MPRN PRN
Ondansetron Injectable [Zofran] Med 12/13/24 15:26 Active
4 mg IV Q6HPRN PRN
Spironolactone [Aldactone] Med 12/22/24 12:00 Active
25 mg PO DAILY
Thiamine HCl [Vitamin B1] Med 12/14/24 08:00 Active
100 mg PO DAILY
Tizanidine [Zanaflex] Med 12/13/24 15:25 Active
2 mg PO Q6HPRN PRN
Vancomycin [Vancocin] 1,500 mg Med 12/28/24 06:00 Active
0.9% Sodium Chloride 500 ml [Nss] 500 ml
IV DAILY@0600
diazePAM [Valium Injection] Med 12/11/24 16:25 Active
5 mg IV Q6HPRN PRN
�
Vitals:�
Temp Pulse Resp BP Pulse Ox
97.8 F 93 18 135/88 100
01/10/25 15:00 01/10/25 15:00 01/10/25 15:00 01/10/25 15:00 01/10/25 15:00
Height 6 ft 2 in
Actual Weight 83.416 kg
Body Mass Index (BMI) 23.6
�
Physical Exam:�
General Appearance/Observation: Well-developed, well-nourished male in no apparent distress.�
Pain/Comfort Assessment: Denies�
Mood/Affect: Appropriate�
�
Integumentary/Operative Site:�Right chest dressing with Tegaderm and no drainage. Has well-healed circular lesions bilateral lower extremities
�
Eyes: Conjunctiva/Lids: normal��� Pupils: pupils equal round and reactive to light
Ears/Nose/Throat: oral mucosa moist, throat clear.������������ Lips/Teeth/Gums: normal
Cardiovascular: Pulses: dorsalis pedis/radial 2+ bilaterally�
Respiratory: Respiratory Effort/Chest Expansion: normal, no audible wheeze
Gastrointestinal: abdomen not tender, no distension, normal abdominal bowel sounds
Genitourinary: No Balderas�
Rectal Exam: Deferred�
Extremities:�Edema: Moderate bilateral�edema below the knees, worse in feet. Cyanosis: None�Trophic�changes: None
�
Neurology Exam:
Orientation: Alert, Oriented to self, Time, Place�
Memory: Intact for recent medical concerns
Comprehension: Intact
Two step command: Intact
Cranial Nerves:
�� CN VII:�Facial movement: Symmetric
�� CN VIII:�Hearing: Normal
�� CN IX/X:�Speech & swallow: Normal,�Position of Uvula: Midline
�� CN XI:�Shoulder shrug: Symmetric
�� CN XII:�Tongue protrusion: Midline
Sensory:
�� Light touch: Intact in bilateral upper and lower extremities
Musculoskeletal: Motor: (Manual muscle scale 0-5)�
Muscle SA EF WE EE FF FA HF KE DF EHL PF
Right� 5 5 5 5 5 5 4 5 4 4 5
Left 5 5 5 5 5 5 4 5 4 4 5
�
Tone: Normal in all extremities�
Range of Motion: Passively within normal limits in all extremities�
�
Lab Results
Laboratory Data
01/09/25 07:46
01/09/25 07:46
PT 15.1 Sec (11.4-14.6) H 12/26/24 06:08
INR 1.16 12/26/24 06:08
APTT 30.9 Sec (23.4-35.0) 12/26/24 06:08
Total Bilirubin 0.8 mg/dl (0.2-1.3) 12/26/24 06:08
Direct Bilirubin 0.5 mg/dl (0.0-0.4) H 12/14/24 04:39
AST 21 U/L (17-59) 12/26/24 06:08
ALT 13 U/L (0-50) 12/26/24 06:08
Alkaline Phosphatase 103 U/L (38-126) 12/26/24 06:08
Total Protein 6.6 g/dl (6.3-8.2) 12/26/24 06:08
Albumin 2.7 g/dl (3.5-5.0) L 12/26/24 06:08
�
Diagnostic Results:�as per HPI�
�
Assessment
39-year-old male with PMH (Polysubstance dependence and abuse, MRSA bacteremia) with 12/03/2024 MRSA sepsis with rhabdomyolysis, acute renal insufficiency, acute transaminitis, respiratory failure requiring intubation, endocarditis, left upper
extremity DVT, Numerous scattered acute infarctions in a distribution that is most suggestive of embolic phenomenon in the setting of known IV drug abuse, Multiple small microhemorrhages.
Plan�
PM&R�PT/OT to increase independence with ADLs, improve balance, coordination, endurance, strength, mobility, community reintegration, decreased burden of care on others and family education.�
�
MRSA with endocarditis: Antibiotics per infectious disease. Plan for follow-up echo as an outpatient to monitor vegetations
Numerous infarctions with multiple microhemorrhages: Functionally doing well with patient denying any acute concerns. Continue to monitor neurologic status.�
�
Bilateral lower extremity edema: Consider TEDS as able. Increased fluid will cause more force requirement to move lower extremities which requires more strength and increases fatigue.�
Skin: monitor for pressure sores/rashes/lesions.�
Alcohol Abuse: Alcohol cessation education, offering of outpatient alcohol abuse program�
-Will need follow-up for buprenorphine management upon discharge
Substance abuse: cessation counseling, offering of substance abuse program.
DVT Prophylaxis: Mechanical and heparin.�
Code Status:� Full code
Dispo�(date/plan/equipment needs): Home with family care.�
Functional and Medical Goals:� Independent with ADL�s, ambulation, transfers�
Discharge Destination:�intermediate facility for completion of antibiotics
�
Thank you for allowing me to care for your patient. Please contact me with any questions or concerns.
Consultation
-
Date/Time Consultation Performed: 01/10/25
Requesting Provider: Dr. Vicente Zhang
Performing Provider: Dr. Dimitrios Bustos
Reason for Consultation: Debility
[2025-01-10] MEDS: SUBUTEX 4 MG SL (21:06)
[2025-01-10] MEDS: MELATONIN 10 MG PO (23:15)
[2025-01-11] MEDS: NAFCIL 108 MG IV ×6 (02:59→21:52)
[2025-01-11 03:10] VITALS: BP 119/69
--- NOTE | 2025-01-11 03:16 | PTCARENOTE ---
Conversation w/pharmacist regarding IV antibiotic schedule. Request to change scheduled 0600 vanco to 0800 to prevent Q4H antibiotics to be given too closely together. Electronic orders received and vanco rescheduled for 0800.
[2025-01-11 04:56] VITALS: BMI 23.3
[2025-01-11 07:25] VITALS: BP 145/102
--- NOTE | 2025-01-11 08:36 | PHA.VAN.FU ---
Addendum entered and electronically signed by Yumiko Hirsch Abiel 01/11/25 08:44:
Agree with assessment and plan
Original Note:
Vancomycin Assessment / Plan
- Assessment
In the past 24 hrs, patient has been: Afebrile
Concomitant Antimicrobials: nafcillin
- Dosing Plan
Continue: 1500mg q24h
- Monitoring Plan
Level(s) appropriate: Recheck trough at minimum of weekly intervals, Repeat sooner for changes in renal function or clinical status
Next Level Due (Date): 01/15/25 (weekly troughs on Mondays)
- Follow Up
Pharmacy will continue to follow.
Vancomycin Follow UP
- -
Patient Age: 39
Patient Sex: Male
Vancomycin Day #: 40
Indication: Bacteremia
Requesting Provider: Dr. Fofana / Teto
Pertinent Antimicrobial Allergies:
NKDA
Height / Weight:
Height 6 ft 2 in
Actual Weight 82.282 kg
IBW in k.2
Pertinent Past Medical History: IV JOCELIN
- Vital Signs / Lab Results
Temp Pulse Resp BP Pulse Ox
98.4 F 98 18 145/102 99
01/11/25 07:25 01/11/25 07:25 01/11/25 07:25 01/11/25 07:25 01/11/25 07:25
Lab Results - Hematology
01/09/25
07:46
WBC 6.5
Lab Results - Chemistry
01/09/25
07:46
BUN 12
Creatinine 0.8
Estimated Creat Clear > 125
Therapeutic Drug Monitoring
Vancomycin Peak 28.8 ug/ml (18-26) H 01/07/25 09:33
Vancomycin Trough 11.8 ug/ml (5-20) 01/08/25 05:00
Random Vancomycin 13.9 ug/ml 12/21/24 03:53
[2025-01-11] MEDS: MAGNESIUM OXIDE 400 MG PO (08:49)
[2025-01-11] MEDS: COREG 25 MG PO ×2 (08:49→21:47)
[2025-01-11] MEDS: VITAMIN B1 100 MG PO (08:49)
[2025-01-11] MEDS: CATAPRES 0.3 MG PO ×4 (08:49→21:47)
[2025-01-11] MEDS: SUBUTEX 16 MG SL (08:49)
[2025-01-11] MEDS: ALDACTONE 25 MG PO (08:50)
[2025-01-11] MEDS: LASIX 40 MG IV (08:50)
[2025-01-11] MEDS: TYLENOL 1000 MG PO ×2 (08:50→16:21)
[2025-01-11] MEDS: THERAGRAN 1 TABLET PO (08:50)
[2025-01-11] MEDS: LOW STRENGTH ASPIRIN 81 MG PO (08:50)
[2025-01-11] MEDS: HEPARIN 5000 UNITS SC ×2 (08:50→16:21)
[2025-01-11] MEDS: DESENEX/MITRAZOL/ZEASORB TOPICAL (08:51)
[2025-01-11] MEDS: VANCOCIN 530 MG IV (08:51)
--- NOTE | 2025-01-11 08:58 | W.PN.HOSP.TC ---
Today's Communication/Plan
-
Medically stable for discharge, pending placement.
Assessment / Plan
Assessment / Plan
Impression:
Patient is a 39-year-old male with a medical history of polysubstance abuse (skin popping with fentanyl) who was admitted after presentation with altered mental status. He was brought in by his parents with tremors and confusion. His mental status
abruptly declined and he was intubated for airway protection. CT brain showed possible left occipital lobe mass. His blood cultures are positive for MRSA. He was initially being managed in the ICU for treatment of encephalopathy and bacteremia.
Patient extubated and downgraded to general medical floors.
CT surgery recommending dental extraction while in the hospital and consider valve replacement during this admission.
status post 15 tooth extraction 01/04, follow-up CT surgeon recommendation regarding valve replacement.
Hemoglobin dropped again, now status post 2 more units of blood transfusion.
Repeat echocardiogram shows
1. Normal left ventricular size, wall thickness and systolic function. No regional wall motion abnormalities are seen.
2. Ejection fraction is 60-65% by visual assesment.
3. Trace mitral valve regurgitation. Mobile echodensity consistent with known endocarditis seen near the mitral valve posterior leaflet annulus.
4. Moderate circumferential pericardial effusion without evidence of tamponade physiology.
5. Compared to a prior echo from December 14 2024, which was reviewed, there is now a moderate pericardial effusion, findings are otherwise similar.
6. Fair image quality.
KELI 12/29/2024: EF 65%, moderate in size partially mobile echodensity attached to the mitral valve annulus and also at the posterior leaflet of P1/P2, eccentric jet of moderate MR present around echodensity/vegetation, moderate pericardial effusion
Pericardiocentesis 01/01.
Pericardiocentesis drain removed.
Pending placement.
Assessment/plan:
Septic shock secondary to MRSA/MSSA bacteremia:
- Off vasopressors and downgraded to general medical floors
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
- Afebrile since 12/11, leukocytosis resolved
- Transesophageal echocardiogram 12/06 showed large mitral annulus vegetation
- ID following, continue antibiotics with vancomycin and nafcillin, repeat cultures negative since 12/13
- Continue antibiotics with vancomycin and nafcillin through 01/23/2025 (6 weeks from sterile cultures on 12/13)
- status post 15 tooth extraction 12/25, follow-up CT surgeon recommendation regarding valve replacement
- Repeat KELI 12/29 showed moderately sized partially mobile echodensity attached to the mitral valve annulus and also the posterior leaflet of P1/P2, also showed moderate pericardial effusion
- Pericardiocentesis 01/01 with approximately 350 cc of sanguinous output, cultures with no growth to date, drain left in place initially but was removed evening of 01/03, patient feeling well
- Awaiting rehab placement for ongoing antibiotic administration
Pericardial effusion:
- Pericardiocentesis 01/01 with 350 cc of sanguinous output, cultures with no growth to date, drain initially left in place with very minimal output, drain was later removed 01/03
- follow up echo 01/11
Polysubstance abuse:
- Long history of injection drug abuse
- Now doing well with initiation of buprenorphine treatment, currently 16 mg sublingual daily and 4 mg at night which we will continue
- Will need coordination with [facility] at time of hospital discharge
Anemia requiring transfusion
- Transfused 1 unit PRBCs for hemoglobin of 7.2 on 12/19, a second unit PRBCs 12/21 for hemoglobin 6.9, hemoglobin appropriately improved, remained stable around 7.5
- No evidence of active bleeding, will attempt to limit blood draws
- Hemoglobin again dropped below 7.0 on 12/27 and 12/28, he was transfused 2 additional units of PRBCs at that time with subsequent improvement in hemoglobin
- Hemoglobin dropped to 8.1 01/04 possibly due to sanguinous pericardial output, remains hemodynamically stable, hemoglobin stable at 8.4 on repeat H&H
- Currently stable, Will monitor
Acute hypoxic respiratory failure.
Ventilation dependent respiratory failure.
12/13
Patient extubated
Acute toxic metabolic encephalopathy:
- EEG with no acute epileptiform activity captured
- Encephalopathy likely multifactorial due to bacteremia, opiate withdrawal, and and suspected septic emboli to brain
- MRI brain consistent with suspicion for septic emboli, repeat CT brain shows stable findings
- Now resolved, patient at baseline mental status, extubated 12/13
Left upper extremity DVT involving brachial vein
Given his multiple scattered acute infarctions with microhemorrhages, patient is high risk for ICH if systemic anticoagulation started
PICC line removed repeat ultrasound shows left brachial vein nonocclusive DVT.
continue subcu heparin.
Hypomagnesemia:
- Resolved, monitor
LE:
- Resolved
Hypokalemia:
- Resolved
- Monitor
Rhabdomyolysis:
- Resolved
Elevated LFTs:
- Suspect due to severe sepsis
- Resolved, monitor with treatment as above
Pancreatitis:
- Resolved
Lactic acidosis:
- Resolved, continue to monitor
CODE STATUS: Full code
DVT prophylaxis: Subcu heparin
Diet: Regular diet
Disposition: Medically stable for discharge, pending placement.
Total time spent on today's encounter was 55 minutes which included time spent in counseling the patient/family regarding diagnosis and treatment plan as listed above, goals of care, and symptom management. Case was discussed with nursing staff,
specialists, and care coordinators/case management. All labs and imaging personally reviewed by me. Remainder the time spent in detailed review of previous records, lab data, imaging, and other medical provider documentation.
Anticipated Discharge: Today
Subjective/Interval History
-
Date of Service: January 11, 2025
Patient seen and examined at bedside, denies any chest pain or shortness of breath, no abdominal pain, no nausea, no vomiting, no diarrhea or constipation.
Objective Data
-
Vital Signs:
Vital Signs
Temp Pulse Resp BP Pulse Ox
98.4 F 98 18 145/102 99
01/11/25 07:25 01/11/25 08:50 01/11/25 07:25 01/11/25 08:50 01/11/25 07:25
I&O
01/10/25 01/11/25 01/12/25
06:59 06:59 06:59
Intake Total 2160 / 2160 2484 / 2484
Output Total 3450 / 3450 4485 / 4485
Balance -1290 / -1290 -2000 /
Physical Exam
-
General: Well Developed
HEENT: Normocephalic and Atraumatic
Respiratory: Rales, Rhonchi and Crackles
Cardiac: Regular Rhythm and S1/S2
Breast: Deferred by me
GI: Soft, Nontender, Nondistended and Normal Bowel Sounds
Genito-urinary: No Costovertebral Tender
Musculoskeletal: No Clubbing, No Cyanosis and No Edema
Skin: Warm
Neuro: Awake and Alert
Psych: Calm
[2025-01-11 10:49] VITALS: BP 123/75
--- NOTE | 2025-01-11 14:04 | CM ---
CM following re: discharge planning.
Reviewed pt's chart, met with pt.
PT and OT continue recommending acute rehab level of care vs home PT/OT. PMNR evaluation noted - outpatient home PT/OT and outpatient D&A rehab services recommended. Pt is aware, expressed his agreement.
Pt stated he lives with parents and has 1st floor set up.
Pt reports to significant h/o substance abuse, was clean for 3 years and 5 years ago relapsed and since than has been on Subutex.
Pt reports he has no PCP, [facility] on [phone] information given and pt stated he will make an appointment before his discharge to have an appointment next day of discharge. Pt stated he is looking for a Dr who can prescribe Subutex. Pt
expressed his agreement to meet with [facility] team to navigate outpatient D&A resources. A referral to [facility] made, spoke to CRS Romel and he will meet with the pt tomorrow.
Pt stated he is aware he will stay in the hospital till he completes IV antibiotic course and she thinks it will be till 01/24/25.
D/C plan: home with outpatient therapy, [facility] to follow for outpatient D&A program and family support.
CM will follow with discharge plan updates as hospitalization progresses
[2025-01-11 15:20] VITALS: BP 124/74
[2025-01-11 19:17] VITALS: BP 139/78
[2025-01-11] MEDS: SUBUTEX 4 MG SL (21:51)
[2025-01-11] MEDS: DESENEX/MITRAZOL/ZEASORB 1 APPLIC TOPICAL (21:51)
[2025-01-11] MEDS: MELATONIN 10 MG PO (21:52)
[2025-01-11 23:13] VITALS: BP 129/85
[2025-01-12] MEDS: TYLENOL 1000 MG PO ×4 (00:01→23:07)
[2025-01-12] MEDS: HEPARIN 5000 UNITS SC ×4 (00:01→23:07)
[2025-01-12] MEDS: NAFCIL 108 MG IV ×6 (03:03→21:11)
[2025-01-12 03:30] VITALS: BP 105/69
[2025-01-12 06:00] VITALS: BMI 23.0
[2025-01-12 07:39] VITALS: BP 152/102
--- NOTE | 2025-01-12 08:42 | PHA.VAN.FU ---
Addendum entered and electronically signed by Yumiko Hirsch RPH 01/12/25 08:53:
Agree with assessment and plan
Original Note:
Vancomycin Assessment / Plan
- Assessment
Renal Function: No New Labs Today
In the past 24 hrs, patient has been: Afebrile
Concomitant Antimicrobials: nafcillin
- Dosing Plan
Continue: 1500mg q24h
- Monitoring Plan
Level(s) appropriate: Recheck trough at minimum of weekly intervals, Repeat sooner for changes in renal function or clinical status
Next Level Due (Date): 01/15/25 (weekly troughs on Mondays)
- Follow Up
Pharmacy will continue to follow.
Vancomycin Follow UP
- -
Patient Age: 39
Patient Sex: Male
Vancomycin Day #: 41
Indication: Bacteremia
Requesting Provider: Dr. Fofana / Teto
Pertinent Antimicrobial Allergies:
NKDA
Height / Weight:
Height 6 ft 2 in
Actual Weight 81.284 kg
IBW in k.2
Pertinent Past Medical History: IV JOCELIN
- Vital Signs / Lab Results
Temp Pulse Resp BP Pulse Ox
98.1 F 95 18 152/102 100
01/12/25 07:39 01/12/25 07:39 01/12/25 07:39 01/12/25 07:39 01/12/25 07:39
Therapeutic Drug Monitoring
Vancomycin Peak 28.8 ug/ml (18-26) H 01/07/25 09:33
Vancomycin Trough 11.8 ug/ml (5-20) 01/08/25 05:00
Random Vancomycin 13.9 ug/ml 12/21/24 03:53
[2025-01-12] MEDS: COREG 25 MG PO ×2 (09:04→20:18)
[2025-01-12] MEDS: VITAMIN B1 100 MG PO (09:04)
[2025-01-12] MEDS: ALDACTONE 25 MG PO ×2 (09:05→20:19)
[2025-01-12] MEDS: DESENEX/MITRAZOL/ZEASORB TOPICAL (09:06)
[2025-01-12] MEDS: CATAPRES 0.3 MG PO ×3 (09:06→21:10)
[2025-01-12] MEDS: THERAGRAN 1 TABLET PO (09:07)
[2025-01-12] MEDS: LOW STRENGTH ASPIRIN 81 MG PO (09:07)
[2025-01-12] MEDS: SUBUTEX 16 MG SL (09:07)
[2025-01-12] MEDS: LASIX 40 MG IV (09:07)
[2025-01-12] MEDS: MAGNESIUM OXIDE 400 MG PO (09:07)
[2025-01-12] MEDS: VANCOCIN 530 MG IV (09:08)
--- NOTE | 2025-01-12 10:13 | CM ---
Reviewed the chart notes. Patient continues on IV abx. [facility] to meet with patient today for outpatient treatment. CM continues to be available to patient/family and is monitoring medical plan for needs at discharge.
Plan: Discharge to home with outpatient PT/OT after completion of IV abx.
--- NOTE | 2025-01-12 10:28 | W.PN.CARDCBS ---
Today's Communication / Plan
-
Overall improving. Had another lengthy discussion with patient and family. Plan is for continued conservative therapy for his mitral valve disease and endocarditis.
Finish IV antibiotics in early January.
Will switch Lasix to 40 mg p.o. daily.
Continue carvedilol 25 p.o. twice daily and increase spironolactone to 25 p.o. twice daily.
Will decrease clonidine to 0.3 mg 3 times daily for compliance issue
He remains on Subutex currently and will need to be set up with an outpatient Suboxone center to help with avoiding substance abuse in the future.
I had another waldemar discussion with him that if he reuses substances he likely will .
Impression / Plan
-
PCP: None prior to admission
Primary Telecasting Engineer: none prior to admission
Impression:
Presentation with change in mental status 12/03/24
Sepsis
Septic emboli by brain MRI
MSSA bacteremia
Being treated as both MSSA and MRSA due to discrepancy between blood culture PCR and phenotype
Pancreatitis
TME
VDRF
LE
Rhabdomyolysis
Elevated LFTs
Newly diagnosed hepatitis C
Thrombocytopenia
Anemia, possibly hemolytic
Pericardial effusion s/p pericardiocentesis 01/01/25
Pericardial fluid culture negative for bacterial growth, negative for yeast or fungal element growth and negative for malignant cells
IVDA since age 19
Vaping
Hypokalemia
Acute HFpEF
LUE DVT
Dental extractions, 15 teeth removed as an inpatient on 12/25/2024
ECHO 12/04/2024: EF 55 to 60%, no regional wall motion abnormalities noted, no evidence of vegetation seen
KELI 12/07/2024: EF 65%, large endocarditis/vegetations attached to mitral annulus measuring ~1x1cm each, mild MR, no Tricuspid or aortic vegetations
Echo 12/14/2024: EF 60-65%, thick echodensity of mitral annulus 1.6x20 cm, trace MR
Echo 12/27/2024: EF 60-65%, trace MR, mobile echodensity consistent with known endocarditis seen near the mitral valve posterior leaflet annulus, moderate circumferential pericardial effusion without evidence of tamponade physiology
KELI 12/29/2024: EF 65%, moderate in size partially mobile echodensity attached to the mitral valve annulus and also at the posterior leaflet of P1/P2, eccentric jet of moderate MR present around echodensity/vegetation, moderate pericardial effusion
Echo January 11, 2025, EF 60%, continued moderate echodensity at mitral valve annulus consistent with endocarditis, eccentric moderate mitral regurgitation. Trivial pericardial effusion
Plan:
-Admitted with confusion and generalized weakness, changes in urine output and back pain. Then developed VDRF in the setting of sepsis, septic shock, TME, brain lesions concerning for embolic disease and rhabdo. KELI with evidence of large
endocarditis/vegetations attached to the mitral annulus. Patient receiving IV antibiotics and awaiting acute care rehab placement. Required pericardiocentesis on 01/01/2025.
-CT surgery update note from 12/30/2024 reviewed by me and current plan is to continue with IV antibiotics. ID note reviewed by me and they are planning for ongoing treatment of MSSA and MRSA bacteremia with IV antibiotics until 01/23/2025. No plan
for surgical intervention at this time unless patient decompensates.
-KELI on 12/29/2024 and there is now moderate MR. Repeat transthoracic echo yesterday revealed stable moderate mitral regurgitation with continued endocarditis around mitral valve annulus and posterior leaflet.
-Last transfusion was on 12/28/2024 for Hgb 6.7. Hemoglobin stable at 9.5.
-On 12/22/2024 the haptoglobin level was elevated at 229 and reticulocyte count elevated at 4.4. Suspect anemia is multifactorial including some element of hemolysis but also anemia of chronic disease in the setting of endocarditis.
-Patient is not on systemic anticoagulation nor OAC. There was evidence of LUE DVT and patient is not being treated with OAC due to risk of hemorrhage with septic emboli on MRI of brain earlier this admission.
-Patient had 15 dental extractions on 12/25/2024
-CM has made referrals to two dozen different acute care rehab and SNF facilities and patient has been denied by all of them for his history of IV drug abuse and for the need for IV antibiotics.
-ID is recommending 6 weeks of IV antibiotics to run through 01/23/25.
-Weight is overall down to 179lbs. will switch Lasix to 40 mg p.o. daily. I had a lengthy discussion with him about his fluid and sodium intake. He is drinking too much fluid and should fluid restrict at 48 to 60 ounces daily.
-EF preserved at 55 to 65% by echoes this admission
-New to Coreg 25 mg BID this admission
-New to clonidine 0.3 mg QID this admission
-New to spironolactone 25 mg daily this admission
-As we anticipate discharge I am going to start decreasing his clonidine as a 4 times daily medicine is not optimal for him. Will decrease clonidine to 0.3 mg 3 times daily today and increase spironolactone to 25 mg p.o. twice daily. Hopefully we
can reduce clonidine to a twice daily dosing upon discharge.
-Patient had pericardiocentesis for 400 mL of bloody fluid on 01/01/2025, microbiology reviewed by me and negative for bacterial growth on fluid cultures, negative for yeast or fungal elements and pathology was negative for malignancy.
-Repeat echo reveals no further pericardial fluid.
Progress Note - Telecasting Engineer
Subjective
Date of Service: January 12, 2025
Overall doing well. Breathing is stable. He has lost significant amounts of weight and no new fevers.
Objective
Labs:
01/09/25 07:46
01/09/25 07:46
Labs
Hgb 9.5 g/dL (13.0-18.0) L 01/09/25 07:46
Hct 28.5 % (39.0-52.0) L 01/09/25 07:46
Plt Count 604 10^3/uL (130-400) H 01/09/25 07:46
PT 15.1 Sec (11.4-14.6) H 12/26/24 06:08
INR 1.16 12/26/24 06:08
APTT 30.9 Sec (23.4-35.0) 12/26/24 06:08
Sodium 138 mmol/L (135-145) 01/09/25 07:46
Potassium 5.0 mmol/L (3.5-5.1) 01/09/25 07:46
BUN 12 mg/dl (9-20) 01/09/25 07:46
Creatinine 0.8 mg/dL (0.7-1.3) 01/09/25 07:46
Glucose 90 mg/dl (70-99) 01/09/25 07:46
Vital Signs and I&O:
Vital Signs
Temp Pulse Resp BP Pulse Ox
98.1 F 95 18 152/102 100
01/12/25 07:39 01/12/25 09:07 01/12/25 07:39 01/12/25 09:07 01/12/25 07:39
Vital Signs
Temp Pulse Resp BP Pulse Ox
98.1 F 95 18 152/102 100
01/12/25 07:39 01/12/25 09:07 01/12/25 07:39 01/12/25 09:07 01/12/25 07:39
Intake & Output
01/10/25 01/11/25 01/12/25 01/13/25
06:59 06:59 06:59 06:59
Intake Total 2160 / 2160 2484 / 2484 2534 / 2534
Output Total 3450 / 3450 4485 / 4485 4600 / 4600
Balance -1290 / -1290 -2000 / -2000 -2065 /
Physical Exam
Physical Exam
GEN: No distress, awake, Ox3
HEENT: supple, anicteric, mmm
LUNGS: CTA, no wheezes/rales
CV: Reg, S1/S2, 1/6 syst LSB, no gallop
ABD: soft, BS+, NT/ND
EXT: No edema
NEURO: Gross non-focal
SKIN: No rash
--- NOTE | 2025-01-12 10:50 | W.PN.HOSP.TC ---
Today's Communication/Plan
-
Medically stable for discharge, pending placement.
Assessment / Plan
Assessment / Plan
Impression:
Patient is a 39-year-old male with a medical history of polysubstance abuse (skin popping with fentanyl) who was admitted after presentation with altered mental status. He was brought in by his parents with tremors and confusion. His mental status
abruptly declined and he was intubated for airway protection. CT brain showed possible left occipital lobe mass. His blood cultures are positive for MRSA. He was initially being managed in the ICU for treatment of encephalopathy and bacteremia.
Patient extubated and downgraded to general medical floors.
CT surgery recommending dental extraction while in the hospital and consider valve replacement during this admission.
status post 15 tooth extraction 01/04, follow-up CT surgeon recommendation regarding valve replacement.
Hemoglobin dropped again, now status post 2 more units of blood transfusion.
Repeat echocardiogram shows
1. Normal left ventricular size, wall thickness and systolic function. No regional wall motion abnormalities are seen.
2. Ejection fraction is 60-65% by visual assesment.
3. Trace mitral valve regurgitation. Mobile echodensity consistent with known endocarditis seen near the mitral valve posterior leaflet annulus.
4. Moderate circumferential pericardial effusion without evidence of tamponade physiology.
5. Compared to a prior echo from December 14 2024, which was reviewed, there is now a moderate pericardial effusion, findings are otherwise similar.
6. Fair image quality.
KELI 12/29/2024: EF 65%, moderate in size partially mobile echodensity attached to the mitral valve annulus and also at the posterior leaflet of P1/P2, eccentric jet of moderate MR present around echodensity/vegetation, moderate pericardial effusion
Pericardiocentesis 01/01.
Pericardiocentesis drain removed.
Pending placement.
01/11
Echo shows:
1. Normal left ventricular size, wall thickness and systolic function. No regional wall motion abnormalities are seen. LVEF 55-60%.
2. Right ventricular size and systolic function are within normal limits.
3. Moderate mitral valve regurgitation. Mitral regurgitation jet is eccentrically directed
4. There remains a prominence at the mitral valve annulus consistent with known prior endocarditis.
5. Trivial pericardial effusion is noted.
6. Compared to a prior transthoracic echocardiogram study from 01/04/25 The mitral regurgitation may be slightly worse.
Assessment/plan:
Septic shock secondary to MRSA/MSSA bacteremia:
- Off vasopressors and downgraded to general medical floors
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
- Afebrile since 12/11, leukocytosis resolved
- Transesophageal echocardiogram 12/06 showed large mitral annulus vegetation
- ID following, continue antibiotics with vancomycin and nafcillin, repeat cultures negative since 12/13
- Continue antibiotics with vancomycin and nafcillin through 01/23/2025 (6 weeks from sterile cultures on 12/13)
- status post 15 tooth extraction 12/25, follow-up CT surgeon recommendation regarding valve replacement
- Repeat KELI 12/29 showed moderately sized partially mobile echodensity attached to the mitral valve annulus and also the posterior leaflet of P1/P2, also showed moderate pericardial effusion
- Pericardiocentesis 01/01 with approximately 350 cc of sanguinous output, cultures with no growth to date, drain left in place initially but was removed evening of 01/03, patient feeling well
- Awaiting rehab placement for ongoing antibiotic administration.
01/11
Echo shows:
1. Normal left ventricular size, wall thickness and systolic function. No regional wall motion abnormalities are seen. LVEF 55-60%.
2. Right ventricular size and systolic function are within normal limits.
3. Moderate mitral valve regurgitation. Mitral regurgitation jet is eccentrically directed
4. There remains a prominence at the mitral valve annulus consistent with known prior endocarditis.
5. Trivial pericardial effusion is noted.
6. Compared to a prior transthoracic echocardiogram study from 01/04/25 The mitral regurgitation may be slightly worse.
Pericardial effusion:
- Pericardiocentesis 01/01 with 350 cc of sanguinous output, cultures with no growth to date, drain initially left in place with very minimal output, drain was later removed 01/03
- follow up echo 01/11 shows Trivial pericardial effusion is noted.
Polysubstance abuse:
- Long history of injection drug abuse
- Now doing well with initiation of buprenorphine treatment, currently 16 mg sublingual daily and 4 mg at night which we will continue
- Will need coordination with [facility] at time of hospital discharge
Anemia requiring transfusion
- Transfused 1 unit PRBCs for hemoglobin of 7.2 on 12/19, a second unit PRBCs 12/21 for hemoglobin 6.9, hemoglobin appropriately improved, remained stable around 7.5
- No evidence of active bleeding, will attempt to limit blood draws
- Hemoglobin again dropped below 7.0 on 12/27 and 12/28, he was transfused 2 additional units of PRBCs at that time with subsequent improvement in hemoglobin
- Hemoglobin dropped to 8.1 01/04 possibly due to sanguinous pericardial output, remains hemodynamically stable, hemoglobin stable at 8.4 on repeat H&H
- Currently stable, Will monitor
Acute hypoxic respiratory failure.
Ventilation dependent respiratory failure.
12/13
Patient extubated
Acute toxic metabolic encephalopathy:
- EEG with no acute epileptiform activity captured
- Encephalopathy likely multifactorial due to bacteremia, opiate withdrawal, and and suspected septic emboli to brain
- MRI brain consistent with suspicion for septic emboli, repeat CT brain shows stable findings
- Now resolved, patient at baseline mental status, extubated 12/13
Left upper extremity DVT involving brachial vein
Given his multiple scattered acute infarctions with microhemorrhages, patient is high risk for ICH if systemic anticoagulation started
PICC line removed repeat ultrasound shows left brachial vein nonocclusive DVT.
continue subcu heparin.
Hypomagnesemia:
- Resolved, monitor
LE:
- Resolved
Hypokalemia:
- Resolved
- Monitor
Rhabdomyolysis:
- Resolved
Elevated LFTs:
- Suspect due to severe sepsis
- Resolved, monitor with treatment as above
Pancreatitis:
- Resolved
Lactic acidosis:
- Resolved, continue to monitor
CODE STATUS: Full code
DVT prophylaxis: Subcu heparin
Diet: Regular diet
Disposition: Medically stable for discharge, pending placement.
Total time spent on today's encounter was 35 minutes which included time spent in counseling the patient/family regarding diagnosis and treatment plan as listed above, goals of care, and symptom management. Case was discussed with nursing staff,
specialists, and care coordinators/case management. All labs and imaging personally reviewed by me. Remainder the time spent in detailed review of previous records, lab data, imaging, and other medical provider documentation.
Anticipated Discharge: Today
Subjective/Interval History
-
Date of Service: January 12, 2025
Patient seen and examined at bedside, denies any chest pain or shortness of breath, no abdominal pain, no nausea, no vomiting, no diarrhea or constipation.
Objective Data
-
Vital Signs:
Vital Signs
Temp Pulse Resp BP Pulse Ox
98.1 F 95 18 152/102 100
01/12/25 07:39 01/12/25 09:07 01/12/25 07:39 01/12/25 09:07 01/12/25 07:39
I&O
01/11/25 01/12/25 01/13/25
06:59 06:59 06:59
Intake Total 2484 / 2484 2534 / 2534
Output Total 4485 / 4485 4600 / 4600
Balance -2000 / -2000 -2065 /
Physical Exam
-
General: Well Developed
HEENT: Normocephalic and Atraumatic
Respiratory: Rales, Rhonchi and Crackles
Cardiac: Regular Rhythm and S1/S2
Breast: Deferred by me
GI: Soft, Nontender, Nondistended and Normal Bowel Sounds
Genito-urinary: No Costovertebral Tender
Musculoskeletal: No Clubbing, No Cyanosis and No Edema
Skin: Warm
Neuro: Awake and Alert
Psych: Calm
[2025-01-12 11:24] VITALS: BP 124/80
--- NOTE | 2025-01-12 13:03 | W.PN.ID1 ---
Date of Service
Date of Service: January 12, 2025
Today's Communication
Continue nafcillin and IV Vanco.
Assessment / Plan
# Complicated Staphylococcus aureus (MRSA/MSSA) bacteremia
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
# Multiple embolic CVA
# New dx of hepatitis C infection: Hepatitic C Ab positive; HCV RNA 2,190,000
# LUE PICC associated DVT, PICC dc'd 12/14
# Fever and leukocytosis resolved
# s/p Intubated 12/03, extubated 12/12/24
# Polysubstance abuse (cocaine and fentanyl 'muscle-ling')
# hx MRSA wound abscesses (2010)
# hx of Viridans strep bacteremia (2010)
- 12/14 repeat TTE: 1.6 x 2 cm echodensity MV
- 12/12/24 Last positive Blood cx MRSA
- 12/13/24 forward, negtive blood cx's.
- 12/14/24 PICC D/C'ed; tip cx without growth
- HIV screen negative.
- Hepatitic C Ab positive; HCV RNA 2,190,000
- anemia requiring pRBC transfusion
- 12/25 s/p 15 tooth extractions
- 12/29 Repeat KELI MV vegetation smaller, but mitral regurgitation worse, new moderate pericardial effusion.
- 01/01 s/p pericardiocentesis, cx neg to date
- There is discrepancy between blood cx PCR (identified as MRSA) and phenotype (identified as MSSA)
Cefoxitin induced test negative. PBP2a negative.
Discussed with S. aureus experts.
Best to treat as both MRSA and MSSA since there are only few publications regarding this particular strain of S. aureus.
- Continue IV Vancomycin and Nafcillin 2g IV q4h (both crosses blood-brain barrier), 6 weeks of IV antibiotics from negative blood cx, through 01/23/2025
- Monitor renal function and LFT's while on nafcillin.
- Close monitoring of vancomycin levels to prevent nephrotoxicity. Appreciate pharmacists.
- [facility] treatment.
- As expected, none of the local SNF/Rehab accepts patient.
Chief Complaint
-: Bacteremia and Other (embolic CVA)
Subjective / Review of Systems
Glad almost done with abx's.
Vital Signs / Physical Exam
Vital Signs
Vital Signs
Temp Pulse Resp BP Pulse Ox
98.2 F 99 18 124/80 97
01/12/25 11:24 01/12/25 11:24 01/12/25 11:24 01/12/25 11:24 01/12/25 11:24
Physical Exam
Constitutional: No Acute Distress and Comfortable
Eyes: Sclera Anicteric
Cardiovascular: Regular Rate and S1/S2
Pulmonary: Clear and Non Labored
Gastrointestinal: Soft and Non Distended
Extremities: Edema (BLE improving)
Neurological: AO x 3
Lines: PICC
Objective Data
Lab Data
Lab Results
01/09/25 07:46
01/09/25 07:46
PT 15.1 Sec (11.4-14.6) H 12/26/24 06:08
INR 1.16 12/26/24 06:08
APTT 30.9 Sec (23.4-35.0) 12/26/24 06:08
Estimated Creat Clear > 125 ml/min 01/09/25 07:46
Lactic Acid 1.3 mmol/L (0.7-2.0) 12/05/24 16:46
Total Bilirubin 0.8 mg/dl (0.2-1.3) 12/26/24 06:08
AST 21 U/L (17-59) 12/26/24 06:08
ALT 13 U/L (0-50) 12/26/24 06:08
Alkaline Phosphatase 103 U/L (38-126) 12/26/24 06:08
Amylase 139 U/L (30-110) H 12/05/24 04:04
Most recent labs reviewed.
Micro Results:
01/01/25 11:21 Fungal Culture - Preliminary
Pericardial Fluid Culture in progress.
Positive cultures are reported as soon as detected.
Final report to follow in four to five weeks.
01/01/25 11:21 Body Fluid Culture - Final
Pericardial Fluid No Growth After 72 Hours
Gram Stain - Final
01/01/25 11:21 Acid Fast Bacilli Smear - Preliminary
Pericardial Fluid Acid Fast Bacilli Culture - Preliminary
01/01/25 11:23 Fungal Smear - Final
Pericardial Fluid No yeast or fungal elements seen.
12/17/24 07:12 Blood Culture - Final
Blood/Venous No Growth - Final Report
12/16/24 03:40 Blood Culture - Final
Blood/Venous No Growth - Final Report
12/15/24 04:33 Blood Culture - Final
Blood/Venous No Growth - Final Report
12/14/24 16:37 Blood Culture - Final
Blood/Venous No Growth - Final Report
12/12/24 03:10 Blood Culture - Final
Blood/Venous Staph aureus MRSA
Gram Stain - Final
12/13/24 04:07 Blood Culture - Final
Blood/Venous No Growth - Final Report
12/14/24 12:53 Catheter Tip Culture - Final
Picc No Growth After 72 Hours
12/09/24 03:54 Blood Culture - Final
Blood/Venous Staph aureus MRSA
Gram Stain - Final
12/08/24 03:02 Blood Culture - Final
Blood/Venous Staph aureus MRSA
Gram Stain - Final
12/11/24 03:33 Blood Culture - Final
Blood/Venous No Growth - Final Report
12/10/24 03:14 Blood Culture - Final
Blood/Venous No Growth - Final Report
12/07/24 04:06 Blood Culture - Final
Blood/Venous Staph aureus MRSA
Gram Stain - Final
12/03/24 08:20 Blood Culture - Final
Blood/Venous Staph aureus MRSA
Gram Stain - Final
12/03/24 09:21 Blood Culture - Final
Blood/Venous Staph aureus MRSA
Gram Stain - Final
12/05/24 16:46 Blood Culture - Final
Blood/Venous Staph aureus MRSA
Gram Stain - Final
12/05/24 13:38 Blood Culture - Final
Blood/Venous Staph aureus MRSA
Gram Stain - Final
12/03/24 08:38 Urine Culture - Final
Urine S aureus-Methicillin Sensitive
12/03/24 18:44 MRSA Screen - Final
Nose No Methicillin Resistant Staphylococcus aureus isolated.
Imaging:
12/05/24 CT a/p: Mild inflammatory change adjacent to the body and tail of the pancreas, suggestive of mild pancreatitis. No peripancreatic fluid collection appreciated. No evidence of intestinal obstruction or bowel inflammatory process. Study is
slightly limited by lack of intravenous or oral contrast. Gallbladder sludge without evidence of acute cholecystitis. No radiopaque gallstones are seen.
12/04/24 MRI brain: Numerous scattered acute infarctions in a distribution that is most suggestive of embolic phenomenon in the setting of known IV drug abuse. Multiple small microhemorrhages are also demonstrated.
12/03/24 CXR: Clear lungs.
12/03/[address]: Possible cortical petechial hemorrhages in the left frontal lobe and left occipital lobe. Possible small old infarct, periventricular small vessel ischemic disease or edema due to underlying mass in the left occipital lobe.
[2025-01-12 15:41] VITALS: BP 130/86
[2025-01-12 19:10] VITALS: BP 131/88
[2025-01-12] MEDS: DESENEX/MITRAZOL/ZEASORB 1 APPLIC TOPICAL (20:19)
[2025-01-12] MEDS: SUBUTEX 4 MG SL (21:10)
[2025-01-12] MEDS: MELATONIN 10 MG PO (21:10)
[2025-01-12 23:13] VITALS: BP 124/85
[2025-01-13] MEDS: NAFCIL 108 MG IV ×6 (01:44→21:52)
[2025-01-13 02:57] VITALS: BP 133/86
[2025-01-13 04:55] VITALS: BMI 23.0
[2025-01-13 07:20] VITALS: BP 157/105
[2025-01-13] MEDS: VANCOCIN 530 MG IV (07:48)
[2025-01-13] MEDS: THERAGRAN 1 TABLET PO (07:48)
[2025-01-13] MEDS: TYLENOL 1000 MG PO ×3 (07:48→23:46)
[2025-01-13] MEDS: COREG 25 MG PO ×2 (07:49→21:10)
[2025-01-13] MEDS: HEPARIN 5000 UNITS SC ×3 (07:49→23:46)
[2025-01-13] MEDS: LASIX 40 MG IV (07:49)
[2025-01-13] MEDS: ALDACTONE 25 MG PO ×2 (07:49→21:10)
[2025-01-13] MEDS: MAGNESIUM OXIDE 400 MG PO (07:49)
[2025-01-13] MEDS: CATAPRES 0.3 MG PO ×3 (07:49→21:52)
[2025-01-13] MEDS: DESENEX/MITRAZOL/ZEASORB 1 APPLIC TOPICAL ×2 (07:50→21:11)
[2025-01-13] MEDS: LOW STRENGTH ASPIRIN 81 MG PO (07:50)
[2025-01-13] MEDS: SUBUTEX 16 MG SL (08:05)
[2025-01-13] MEDS: VITAMIN B1 100 MG PO (08:05)
[2025-01-13 08:22] LABS: Hematocrit 29.2 % (39.0-52.0); Hemoglobin 9.6 g/dL (13.0-18.0); Mean Corp Hgb Conc. 32.9 g/dL (33.0-37.0); Mean Corpuscular Volume 91.3 fL (80.0-94.0); Platelet Count 575 10^3/uL (130-400); Red Cell Dist. Width 16.7 % (11.5-14.5)
[2025-01-13 08:49] LABS: Blood Urea Nitrogen 14 mg/dl (9-20); Calcium 9.5 mg/dl (8.4-10.2); Carbon Dioxide 28 mmol/L (22-30); Chloride 104 mmol/L (98-107); Estimated Creatinine Clearance > 125 ml/min; Glucose 96 mg/dl (70-99); Potassium 4.9 mmol/L (3.5-5.1); Sodium 139 mmol/L (135-145); eGFR > 60.00
--- NOTE | 2025-01-13 09:36 | PHA.VAN.FU ---
Vancomycin Assessment / Plan
- Assessment
Renal Function: Stable
WBC's are: WNL
In the past 24 hrs, patient has been: Afebrile
Concomitant Antimicrobials: nafcillin
- Dosing Plan
Continue: Vanc 1500mg Q24H
- Monitoring Plan
Level(s) appropriate: Recheck trough at minimum of weekly intervals, Repeat sooner for changes in renal function or clinical status
Next Level Due (Date): 01/15/25 (weekly troughs on Mondays)
- Follow Up
Pharmacy will continue to follow.
Vancomycin Follow UP
- -
Patient Age: 39
Patient Sex: Male
Vancomycin Day #: 42
Indication: Bacteremia
Requesting Provider: Dr. Fofana / Teto
Pertinent Antimicrobial Allergies:
NKDA
Height / Weight:
Height 6 ft 2 in
Actual Weight 81.238 kg
IBW in k.2
Pertinent Past Medical History: IV JOCELIN
- Vital Signs / Lab Results
Temp Pulse Resp BP Pulse Ox
97.1 F 100 20 157/105 100
01/13/25 07:20 01/13/25 07:49 01/13/25 07:20 01/13/25 07:49 01/13/25 07:20
Lab Results - Hematology
01/13/25
07:51
WBC 8.4
Lab Results - Chemistry
01/13/25
07:51
BUN 14
Creatinine 0.7
Estimated Creat Clear > 125
Therapeutic Drug Monitoring
Vancomycin Peak 28.8 ug/ml (18-26) H 01/07/25 09:33
Vancomycin Trough 11.8 ug/ml (5-20) 01/08/25 05:00
Random Vancomycin 13.9 ug/ml 12/21/24 03:53
--- NOTE | 2025-01-13 11:37 | W.PN.HOSP.TC ---
Today's Communication/Plan
-
Medically stable for discharge, pending placement.
Assessment / Plan
Assessment / Plan
Impression:
Patient is a 39-year-old male with a medical history of polysubstance abuse (skin popping with fentanyl) who was admitted after presentation with altered mental status. He was brought in by his parents with tremors and confusion. His mental status
abruptly declined and he was intubated for airway protection. CT brain showed possible left occipital lobe mass. His blood cultures are positive for MRSA. He was initially being managed in the ICU for treatment of encephalopathy and bacteremia.
Patient extubated and downgraded to general medical floors.
CT surgery recommending dental extraction while in the hospital and consider valve replacement during this admission.
status post 15 tooth extraction 01/04, follow-up CT surgeon recommendation regarding valve replacement.
Hemoglobin dropped again, now status post 2 more units of blood transfusion.
Repeat echocardiogram shows
1. Normal left ventricular size, wall thickness and systolic function. No regional wall motion abnormalities are seen.
2. Ejection fraction is 60-65% by visual assesment.
3. Trace mitral valve regurgitation. Mobile echodensity consistent with known endocarditis seen near the mitral valve posterior leaflet annulus.
4. Moderate circumferential pericardial effusion without evidence of tamponade physiology.
5. Compared to a prior echo from December 14 2024, which was reviewed, there is now a moderate pericardial effusion, findings are otherwise similar.
6. Fair image quality.
KELI 12/29/2024: EF 65%, moderate in size partially mobile echodensity attached to the mitral valve annulus and also at the posterior leaflet of P1/P2, eccentric jet of moderate MR present around echodensity/vegetation, moderate pericardial effusion
Pericardiocentesis 01/01.
Pericardiocentesis drain removed.
Pending placement.
01/11
Echo shows:
1. Normal left ventricular size, wall thickness and systolic function. No regional wall motion abnormalities are seen. LVEF 55-60%.
2. Right ventricular size and systolic function are within normal limits.
3. Moderate mitral valve regurgitation. Mitral regurgitation jet is eccentrically directed
4. There remains a prominence at the mitral valve annulus consistent with known prior endocarditis.
5. Trivial pericardial effusion is noted.
6. Compared to a prior transthoracic echocardiogram study from 01/04/25 The mitral regurgitation may be slightly worse.
Assessment/plan:
Septic shock secondary to MRSA/MSSA bacteremia:
- Off vasopressors and downgraded to general medical floors
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
- Afebrile since 12/11, leukocytosis resolved
- Transesophageal echocardiogram 12/06 showed large mitral annulus vegetation
- ID following, continue antibiotics with vancomycin and nafcillin, repeat cultures negative since 12/13
- Continue antibiotics with vancomycin and nafcillin through 01/23/2025 (6 weeks from sterile cultures on 12/13)
- status post 15 tooth extraction 12/25, follow-up CT surgeon recommendation regarding valve replacement
- Repeat KELI 12/29 showed moderately sized partially mobile echodensity attached to the mitral valve annulus and also the posterior leaflet of P1/P2, also showed moderate pericardial effusion
- Pericardiocentesis 01/01 with approximately 350 cc of sanguinous output, cultures with no growth to date, drain left in place initially but was removed evening of 01/03, patient feeling well
- Awaiting rehab placement for ongoing antibiotic administration.
01/11
Echo shows:
1. Normal left ventricular size, wall thickness and systolic function. No regional wall motion abnormalities are seen. LVEF 55-60%.
2. Right ventricular size and systolic function are within normal limits.
3. Moderate mitral valve regurgitation. Mitral regurgitation jet is eccentrically directed
4. There remains a prominence at the mitral valve annulus consistent with known prior endocarditis.
5. Trivial pericardial effusion is noted.
6. Compared to a prior transthoracic echocardiogram study from 01/04/25 The mitral regurgitation may be slightly worse.
Pericardial effusion:
- Pericardiocentesis 01/01 with 350 cc of sanguinous output, cultures with no growth to date, drain initially left in place with very minimal output, drain was later removed 01/03
- follow up echo 01/11 shows Trivial pericardial effusion is noted.
Polysubstance abuse:
- Long history of injection drug abuse
- Now doing well with initiation of buprenorphine treatment, currently 16 mg sublingual daily and 4 mg at night which we will continue
- Will need coordination with [facility] at time of hospital discharge
Anemia requiring transfusion
- Transfused 1 unit PRBCs for hemoglobin of 7.2 on 12/19, a second unit PRBCs 12/21 for hemoglobin 6.9, hemoglobin appropriately improved, remained stable around 7.5
- No evidence of active bleeding, will attempt to limit blood draws
- Hemoglobin again dropped below 7.0 on 12/27 and 12/28, he was transfused 2 additional units of PRBCs at that time with subsequent improvement in hemoglobin
- Hemoglobin dropped to 8.1 01/04 possibly due to sanguinous pericardial output, remains hemodynamically stable, hemoglobin stable at 8.4 on repeat H&H
- Currently stable, Will monitor
Acute hypoxic respiratory failure.
Ventilation dependent respiratory failure.
12/13
Patient extubated
Acute toxic metabolic encephalopathy:
- EEG with no acute epileptiform activity captured
- Encephalopathy likely multifactorial due to bacteremia, opiate withdrawal, and and suspected septic emboli to brain
- MRI brain consistent with suspicion for septic emboli, repeat CT brain shows stable findings
- Now resolved, patient at baseline mental status, extubated 12/13
Left upper extremity DVT involving brachial vein
Given his multiple scattered acute infarctions with microhemorrhages, patient is high risk for ICH if systemic anticoagulation started
PICC line removed repeat ultrasound shows left brachial vein nonocclusive DVT.
continue subcu heparin.
Hypomagnesemia:
- Resolved, monitor
LE:
- Resolved
Hypokalemia:
- Resolved
- Monitor
Rhabdomyolysis:
- Resolved
Elevated LFTs:
- Suspect due to severe sepsis
- Resolved, monitor with treatment as above
Pancreatitis:
- Resolved
Lactic acidosis:
- Resolved, continue to monitor
CODE STATUS: Full code
DVT prophylaxis: Subcu heparin
Diet: Regular diet
Disposition: Medically stable for discharge, pending placement.
Total time spent on today's encounter was 35 minutes which included time spent in counseling the patient/family regarding diagnosis and treatment plan as listed above, goals of care, and symptom management. Case was discussed with nursing staff,
specialists, and care coordinators/case management. All labs and imaging personally reviewed by me. Remainder the time spent in detailed review of previous records, lab data, imaging, and other medical provider documentation.
Anticipated Discharge: Today
Subjective/Interval History
-
Date of Service: January 13, 2025
Patient seen and examined at bedside, denies any chest pain or shortness of breath, no abdominal pain, no nausea, no vomiting, no diarrhea or constipation.
Objective Data
-
Labs:
Laboratory Results
01/13/25
07:51
WBC 8.4
Hgb 9.6 L
Hct 29.2 L
Plt Count 575 H
Sodium 139
Potassium 4.9
Chloride 104
Carbon Dioxide 28
BUN 14
Creatinine 0.7
Glucose 96
Calcium 9.5
Vital Signs:
Vital Signs
Temp Pulse Resp BP Pulse Ox
97.1 F 100 20 157/105 100
01/13/25 07:20 01/13/25 07:49 01/13/25 07:20 01/13/25 07:49 01/13/25 08:00
I&O
01/12/25 01/13/25 01/14/25
06:59 06:59 06:59
Intake Total 2534 / 2534 2280 / 2280
Output Total 4600 / 4600 2975 / 2975
Balance -2066 / -2066 -695 / -695
Physical Exam
-
General: Well Developed
HEENT: Normocephalic and Atraumatic
Respiratory: Rales, Rhonchi and Crackles
Cardiac: Regular Rhythm and S1/S2
Breast: Deferred by me
GI: Soft, Nontender, Nondistended and Normal Bowel Sounds
Genito-urinary: No Costovertebral Tender
Musculoskeletal: No Clubbing, No Cyanosis and No Edema
Skin: Warm
Neuro: Awake and Alert
Psych: Calm
[2025-01-13 11:47] VITALS: BP 115/76
[2025-01-13 15:50] VITALS: BP 144/98
[2025-01-13 19:18] VITALS: BP 128/83
[2025-01-13 21:51] VITALS: BP 130/91
[2025-01-13] MEDS: SUBUTEX 4 MG SL (21:52)
[2025-01-13] MEDS: MELATONIN 10 MG PO (21:52)
[2025-01-14] MEDS: NAFCIL 108 MG IV ×6 (01:49→21:55)
[2025-01-14 03:12] VITALS: BP 123/83
[2025-01-14 06:00] VITALS: BMI 23.2
[2025-01-14 07:35] VITALS: BP 153/104
[2025-01-14] MEDS: VANCOCIN 530 MG IV (08:45)
[2025-01-14] MEDS: TYLENOL 1000 MG PO ×3 (08:46→23:40)
[2025-01-14] MEDS: VITAMIN B1 100 MG PO (08:46)
[2025-01-14] MEDS: LASIX 40 MG IV (08:46)
[2025-01-14] MEDS: SUBUTEX 16 MG SL (08:46)
[2025-01-14] MEDS: CATAPRES 0.3 MG PO ×3 (08:47→21:45)
[2025-01-14] MEDS: COREG 25 MG PO ×2 (08:48→21:44)
[2025-01-14] MEDS: ALDACTONE 25 MG PO ×2 (08:48→21:44)
[2025-01-14] MEDS: THERAGRAN 1 TABLET PO (08:48)
[2025-01-14] MEDS: MAGNESIUM OXIDE 400 MG PO (08:48)
[2025-01-14] MEDS: HEPARIN 5000 UNITS SC ×3 (08:48→23:40)
[2025-01-14] MEDS: LOW STRENGTH ASPIRIN 81 MG PO (08:48)
--- NOTE | 2025-01-14 08:48 | PHA.VAN.FU ---
Addendum entered and electronically signed by Yumiko Hirsch RPH 01/14/25 13:15:
Note: patient is receiving Vancomycin on non standard schedule
Vanc Q24H at 0800 --> trough adjusted to 07:30
BUN & SCR ordered per protocol
Original Note:
Vancomycin Assessment / Plan
- Assessment
Renal Function: No New Labs Today
In the past 24 hrs, patient has been: Afebrile
Concomitant Antimicrobials: nafcillin
- Dosing Plan
Continue: Vanc 1500mg Q24H
- Monitoring Plan
Trough Level: 01/15 05:30 (weekly trough)
- Follow Up
Pharmacy will continue to follow.
Vancomycin Follow UP
- -
Patient Age: 39
Patient Sex: Male
Vancomycin Day #: 43
Indication: Bacteremia
Requesting Provider: Dr. Fofana / Teto
Pertinent Antimicrobial Allergies:
NKDA
Height / Weight:
Height 6 ft 2 in
Actual Weight 81.828 kg
IBW in k.2
Pertinent Past Medical History: IV JOCELIN
- Vital Signs / Lab Results
Temp Pulse Resp BP Pulse Ox
98.1 F 110 20 153/104 100
01/14/25 07:35 01/14/25 07:35 01/14/25 07:35 01/14/25 07:35 01/14/25 07:35
Lab Results - Hematology
01/13/25
07:51
WBC 8.4
Lab Results - Chemistry
01/13/25
07:51
BUN 14
Creatinine 0.7
Estimated Creat Clear > 125
Therapeutic Drug Monitoring
Vancomycin Peak 28.8 ug/ml (18-26) H 01/07/25 09:33
Vancomycin Trough 11.8 ug/ml (5-20) 01/08/25 05:00
Random Vancomycin 13.9 ug/ml 12/21/24 03:53
[2025-01-14] MEDS: DESENEX/MITRAZOL/ZEASORB TOPICAL (08:49)
--- NOTE | 2025-01-14 10:41 | W.PN.HOSP.TC ---
Today's Communication/Plan
-
Medically clear for discharge
Assessment / Plan
Assessment / Plan
Impression:
Patient is a 39-year-old male with a medical history of polysubstance abuse (skin popping with fentanyl) who was admitted after presentation with altered mental status. He was brought in by his parents with tremors and confusion. His mental status
abruptly declined and he was intubated for airway protection. CT brain showed possible left occipital lobe mass. His blood cultures are positive for MRSA. He was initially being managed in the ICU for treatment of encephalopathy and bacteremia.
Patient extubated and downgraded to general medical floors.
CT surgery recommending dental extraction while in the hospital and consider valve replacement during this admission.
status post 15 tooth extraction 01/04, follow-up CT surgeon recommendation regarding valve replacement.
Hemoglobin dropped again, now status post 2 more units of blood transfusion.
Repeat echocardiogram shows
1. Normal left ventricular size, wall thickness and systolic function. No regional wall motion abnormalities are seen.
2. Ejection fraction is 60-65% by visual assesment.
3. Trace mitral valve regurgitation. Mobile echodensity consistent with known endocarditis seen near the mitral valve posterior leaflet annulus.
4. Moderate circumferential pericardial effusion without evidence of tamponade physiology.
5. Compared to a prior echo from December 14 2024, which was reviewed, there is now a moderate pericardial effusion, findings are otherwise similar.
6. Fair image quality.
KELI 12/29/2024: EF 65%, moderate in size partially mobile echodensity attached to the mitral valve annulus and also at the posterior leaflet of P1/P2, eccentric jet of moderate MR present around echodensity/vegetation, moderate pericardial effusion
Pericardiocentesis 01/01.
Pericardiocentesis drain removed.
Pending placement.
01/11
Echo shows:
1. Normal left ventricular size, wall thickness and systolic function. No regional wall motion abnormalities are seen. LVEF 55-60%.
2. Right ventricular size and systolic function are within normal limits.
3. Moderate mitral valve regurgitation. Mitral regurgitation jet is eccentrically directed
4. There remains a prominence at the mitral valve annulus consistent with known prior endocarditis.
5. Trivial pericardial effusion is noted.
6. Compared to a prior transthoracic echocardiogram study from 01/04/25 The mitral regurgitation may be slightly worse.
Assessment/plan:
Septic shock secondary to MRSA/MSSA bacteremia:
- Off vasopressors and downgraded to general medical floors
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
- Afebrile since 12/11, leukocytosis resolved
- Transesophageal echocardiogram 12/06 showed large mitral annulus vegetation
- ID following, continue antibiotics with vancomycin and nafcillin, repeat cultures negative since 12/13
- Continue antibiotics with vancomycin and nafcillin through 01/23/2025 (6 weeks from sterile cultures on 12/13)
- status post 15 tooth extraction 12/25, follow-up CT surgeon recommendation regarding valve replacement
- Repeat KELI 12/29 showed moderately sized partially mobile echodensity attached to the mitral valve annulus and also the posterior leaflet of P1/P2, also showed moderate pericardial effusion
- Pericardiocentesis 01/01 with approximately 350 cc of sanguinous output, cultures with no growth to date, drain left in place initially but was removed evening of 01/03, patient feeling well
- Awaiting rehab placement for ongoing antibiotic administration.
01/11
Echo shows:
1. Normal left ventricular size, wall thickness and systolic function. No regional wall motion abnormalities are seen. LVEF 55-60%.
2. Right ventricular size and systolic function are within normal limits.
3. Moderate mitral valve regurgitation. Mitral regurgitation jet is eccentrically directed
4. There remains a prominence at the mitral valve annulus consistent with known prior endocarditis.
5. Trivial pericardial effusion is noted.
6. Compared to a prior transthoracic echocardiogram study from 01/04/25 The mitral regurgitation may be slightly worse.
Pericardial effusion:
- Pericardiocentesis 01/01 with 350 cc of sanguinous output, cultures with no growth to date, drain initially left in place with very minimal output, drain was later removed 01/03
- follow up echo 01/11 shows Trivial pericardial effusion is noted.
Polysubstance abuse:
- Long history of injection drug abuse
- Now doing well with initiation of buprenorphine treatment, currently 16 mg sublingual daily and 4 mg at night which we will continue
- Will need coordination with [facility] at time of hospital discharge
Anemia requiring transfusion
- Transfused 1 unit PRBCs for hemoglobin of 7.2 on 12/19, a second unit PRBCs 12/21 for hemoglobin 6.9, hemoglobin appropriately improved, remained stable around 7.5
- No evidence of active bleeding, will attempt to limit blood draws
- Hemoglobin again dropped below 7.0 on 12/27 and 12/28, he was transfused 2 additional units of PRBCs at that time with subsequent improvement in hemoglobin
- Hemoglobin dropped to 8.1 01/04 possibly due to sanguinous pericardial output, remains hemodynamically stable, hemoglobin stable at 8.4 on repeat H&H
- Currently stable, Will monitor
Acute hypoxic respiratory failure.
Ventilation dependent respiratory failure.
12/13
Patient extubated
Acute toxic metabolic encephalopathy:
- EEG with no acute epileptiform activity captured
- Encephalopathy likely multifactorial due to bacteremia, opiate withdrawal, and and suspected septic emboli to brain
- MRI brain consistent with suspicion for septic emboli, repeat CT brain shows stable findings
- Now resolved, patient at baseline mental status, extubated 12/13
Left upper extremity DVT involving brachial vein
Given his multiple scattered acute infarctions with microhemorrhages, patient is high risk for ICH if systemic anticoagulation started
PICC line removed repeat ultrasound shows left brachial vein nonocclusive DVT.
continue subcu heparin.
Hypomagnesemia:
- Resolved, monitor
LE:
- Resolved
Hypokalemia:
- Resolved
- Monitor
Rhabdomyolysis:
- Resolved
Elevated LFTs:
- Suspect due to severe sepsis
- Resolved, monitor with treatment as above
Pancreatitis:
- Resolved
Lactic acidosis:
- Resolved, continue to monitor
CODE STATUS: Full code
DVT prophylaxis: Subcu heparin
Diet: Regular diet
Disposition: Medically stable for discharge, pending placement.
Total time spent on today's encounter was 35 minutes which included time spent in counseling the patient/family regarding diagnosis and treatment plan as listed above, goals of care, and symptom management. Case was discussed with nursing staff,
specialists, and care coordinators/case management. All labs and imaging personally reviewed by me. Remainder the time spent in detailed review of previous records, lab data, imaging, and other medical provider documentation.
Anticipated Discharge: Today
Subjective/Interval History
-
Date of Service: January 14, 2025
Patient seen and examined at bedside, denies any chest pain or shortness of breath, no abdominal pain, no nausea, no vomiting, no diarrhea or constipation.
Objective Data
-
Vital Signs:
Vital Signs
Temp Pulse Resp BP Pulse Ox
98.1 F 112 20 153/104 100
01/14/25 07:35 01/14/25 08:48 01/14/25 07:35 01/14/25 08:48 01/14/25 07:35
I&O
01/13/25 01/14/25 01/15/25
06:59 06:59 06:59
Intake Total 2280 / 2280 1600 / 1600
Output Total 2975 / 2975 2650 / 2650
Balance -695 / -695 -1050 / -1050
Physical Exam
-
General: Well Developed
HEENT: Normocephalic and Atraumatic
Respiratory: Rales, Rhonchi and Crackles
Cardiac: Regular Rhythm and S1/S2
Breast: Deferred by me
GI: Soft, Nontender, Nondistended and Normal Bowel Sounds
Genito-urinary: No Costovertebral Tender
Musculoskeletal: No Clubbing, No Cyanosis and No Edema
Skin: Warm
Neuro: Awake and Alert
Psych: Calm
[2025-01-14 11:10] VITALS: BP 128/74
[2025-01-14 15:20] VITALS: BP 134/88
[2025-01-14 19:10] VITALS: BP 132/81
[2025-01-14] MEDS: MELATONIN 10 MG PO (21:45)
[2025-01-14] MEDS: DESENEX/MITRAZOL/ZEASORB 1 APPLIC TOPICAL (21:46)
[2025-01-14] MEDS: SUBUTEX 4 MG SL (21:47)
[2025-01-14 23:43] VITALS: BP 133/88
[2025-01-15] VITALS (7 sets, daily range): BP systolic 110–146; BP diastolic 65–92; PULSE 108; O2SAT 99; BMI 23.0
[2025-01-15] MEDS: NAFCIL 108 MG IV ×6 (01:25→22:25)
[2025-01-15 05:18] LABS: Blood Urea Nitrogen 15 mg/dl (9-20); Estimated Creatinine Clearance > 125 ml/min
--- NOTE | 2025-01-15 08:26 | PHA.VAN.FU ---
Vancomycin Assessment / Plan
- Assessment
Renal Function: Stable
WBC's are: WNL
In the past 24 hrs, patient has been: Afebrile
Concomitant Antimicrobials: Nafcillin 2 gram IV q4h
- Assessment - Trough Based Monitoring
Trough Value: 11 (01/15/25 at 7:27 AM)
Level Today was: Appropriate
- Dosing Plan
Continue: Vancomycin 1500 mg IV q24h
- Monitoring Plan
Level(s) appropriate: Recheck trough at minimum of weekly intervals, Repeat sooner for changes in renal function or clinical status
Next Level Due (Date): 01/22/2025 (Weekly troughs on Mondays)
- Follow Up
Pharmacy will continue to follow.
Vancomycin Follow UP
- -
Patient Age: 39
Patient Sex: Male
Vancomycin Day #: 44
Indication: Bacteremia
Requesting Provider: Dr. Fofana / Teto
Pertinent Antimicrobial Allergies:
NKDA
Height / Weight:
Height 6 ft 2 in
Actual Weight 81.284 kg
IBW in k.2
Pertinent Past Medical History: IV JOCELIN
- Vital Signs / Lab Results
Temp Pulse Resp BP Pulse Ox
98.1 F 98 18 137/90 98
01/15/25 07:23 01/15/25 07:23 01/15/25 07:23 01/15/25 07:23 01/15/25 07:23
Lab Results - Hematology
01/13/25
07:51
WBC 8.4
Lab Results - Chemistry
01/13/25 01/15/25
07:51 04:42
BUN 14 15
Creatinine 0.7 0.7
Estimated Creat Clear > 125 > 125
Therapeutic Drug Monitoring
Vancomycin Peak 28.8 ug/ml (18-26) H 01/07/25 09:33
Vancomycin Trough 11.0 ug/ml (5-20) 01/15/25 07:27
Random Vancomycin 13.9 ug/ml 12/21/24 03:53
[2025-01-15] MEDS: VANCOCIN 530 MG IV (08:41)
[2025-01-15] MEDS: COREG 25 MG PO ×2 (08:44→20:39)
[2025-01-15] MEDS: SUBUTEX 16 MG SL (08:44)
[2025-01-15] MEDS: VITAMIN B1 100 MG PO (08:44)
[2025-01-15] MEDS: LOW STRENGTH ASPIRIN 81 MG PO (08:44)
[2025-01-15] MEDS: MAGNESIUM OXIDE 400 MG PO (08:44)
[2025-01-15] MEDS: CATAPRES 0.3 MG PO ×3 (08:44→22:29)
[2025-01-15] MEDS: TYLENOL 1000 MG PO ×3 (08:45→23:55)
[2025-01-15] MEDS: THERAGRAN 1 TABLET PO (08:45)
[2025-01-15] MEDS: DESENEX/MITRAZOL/ZEASORB TOPICAL (08:45)
[2025-01-15] MEDS: ALDACTONE 25 MG PO ×2 (08:45→20:39)
[2025-01-15] MEDS: LASIX 40 MG PO (08:45)
[2025-01-15] MEDS: HEPARIN 5000 UNITS SC ×3 (08:46→23:56)
[2025-01-15] MEDS: LASIX IV (10:13)
--- NOTE | 2025-01-15 10:41 | W.PN.HOSP.TC ---
Today's Communication/Plan
-
Assessment / Plan
Assessment / Plan
General: No Apparent Distress, Comfortable and Conversant
HEENT: NormoCephalic, Moist mucous membranes, Atraumatic, poor dentition
Respiratory: Clear and Non Labored Respirations
Cardiac: S1/S2 and Regular Rhythm; No Rub or Gallop
GI: Soft, Non Tender, Non Distended and Normal Bowel Sounds
Musculoskeletal: No Edema, no deformity
: NO Balderas
Neuro: Awake, Alert, Nonfocal/grossly intact
Psych: Calm and Intact Judgment/Insight
Impression:
Patient is a 39-year-old male with a medical history of polysubstance abuse (skin popping with fentanyl) who was admitted after presentation with altered mental status. He was brought in by his parents with tremors and confusion. His mental status
abruptly declined and he was intubated for airway protection. CT brain showed possible left occipital lobe mass. His blood cultures are positive for MRSA. He was initially being managed in the ICU for treatment of encephalopathy and bacteremia.
Patient extubated and downgraded to general medical floors.
CT surgery recommending dental extraction while in the hospital and consider valve replacement during this admission.
status post 15 tooth extraction 01/04, follow-up CT surgeon recommendation regarding valve replacement.
Hemoglobin dropped again, now status post 2 more units of blood transfusion.
Repeat echocardiogram shows
1. Normal left ventricular size, wall thickness and systolic function. No regional wall motion abnormalities are seen.
2. Ejection fraction is 60-65% by visual assesment.
3. Trace mitral valve regurgitation. Mobile echodensity consistent with known endocarditis seen near the mitral valve posterior leaflet annulus.
4. Moderate circumferential pericardial effusion without evidence of tamponade physiology.
5. Compared to a prior echo from December 14 2024, which was reviewed, there is now a moderate pericardial effusion, findings are otherwise similar.
6. Fair image quality.
KELI 12/29/2024: EF 65%, moderate in size partially mobile echodensity attached to the mitral valve annulus and also at the posterior leaflet of P1/P2, eccentric jet of moderate MR present around echodensity/vegetation, moderate pericardial effusion
Pericardiocentesis 01/01.
Pericardiocentesis drain removed.
Pending placement.
01/11
Echo shows:
1. Normal left ventricular size, wall thickness and systolic function. No regional wall motion abnormalities are seen. LVEF 55-60%.
2. Right ventricular size and systolic function are within normal limits.
3. Moderate mitral valve regurgitation. Mitral regurgitation jet is eccentrically directed
4. There remains a prominence at the mitral valve annulus consistent with known prior endocarditis.
5. Trivial pericardial effusion is noted.
6. Compared to a prior transthoracic echocardiogram study from 01/04/25 The mitral regurgitation may be slightly worse.
Assessment/plan:
Septic shock secondary to MRSA/MSSA bacteremia:
- Off vasopressors and downgraded to general medical floors
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
- Afebrile since 12/11, leukocytosis resolved
- Transesophageal echocardiogram 12/06 showed large mitral annulus vegetation
- ID following, continue antibiotics with vancomycin and nafcillin, repeat cultures negative since 12/13
- Continue antibiotics with vancomycin and nafcillin through 01/23/2025 (6 weeks from sterile cultures on 12/13)
- status post 15 tooth extraction 12/25, follow-up CT surgeon recommendation regarding valve replacement
- Repeat KELI 12/29 showed moderately sized partially mobile echodensity attached to the mitral valve annulus and also the posterior leaflet of P1/P2, also showed moderate pericardial effusion
- Pericardiocentesis 01/01 with approximately 350 cc of sanguinous output, cultures with no growth to date, drain left in place initially but was removed evening of 01/03, patient feeling well
- Awaiting rehab placement for ongoing antibiotic administration.
- Repeat echo 01/11 shows trivial pericardial effusion
Pericardial effusion:
- Pericardiocentesis 01/01 with 350 cc of sanguinous output, cultures with no growth to date, drain initially left in place with very minimal output, drain was later removed 01/03
- follow up echo 01/11 shows Trivial pericardial effusion is noted.
Polysubstance abuse:
- Long history of injection drug abuse
- Now doing well with initiation of buprenorphine treatment, currently 16 mg sublingual daily and 4 mg at night which we will continue, also uses Suboxone for chronic myalgias
- Will need coordination with [facility] at time of hospital discharge
Anemia requiring transfusion
- Transfused 1 unit PRBCs for hemoglobin of 7.2 on 12/19, a second unit PRBCs 12/21 for hemoglobin 6.9, hemoglobin appropriately improved, remained stable around 7.5
- No evidence of active bleeding, will attempt to limit blood draws
- Hemoglobin again dropped below 7.0 on 12/27 and 12/28, he was transfused 2 additional units of PRBCs at that time with subsequent improvement in hemoglobin
- Hemoglobin dropped to 8.1 01/04 possibly due to sanguinous pericardial output, remains hemodynamically stable, hemoglobin stable at 8.4 on repeat H&H
- Currently stable, Will monitor
Chronic pain
- Continue Suboxone for generalized myalgias which he also uses for addiction therapy
Acute hypoxic respiratory failure.
Ventilation dependent respiratory failure.
12/13
Patient extubated
Acute toxic metabolic encephalopathy:
- EEG with no acute epileptiform activity captured
- Encephalopathy likely multifactorial due to bacteremia, opiate withdrawal, and and suspected septic emboli to brain
- MRI brain consistent with suspicion for septic emboli, repeat CT brain shows stable findings
- Now resolved, patient at baseline mental status, extubated 12/13
Left upper extremity DVT involving brachial vein
Given his multiple scattered acute infarctions with microhemorrhages, patient is high risk for ICH if systemic anticoagulation started
PICC line removed repeat ultrasound shows left brachial vein nonocclusive DVT.
continue subcu heparin.
Hypomagnesemia:
- Resolved, monitor
LE:
- Resolved
Hypokalemia:
- Resolved
- Monitor
Rhabdomyolysis:
- Resolved
Elevated LFTs:
- Suspect due to severe sepsis
- Resolved, monitor with treatment as above
Pancreatitis:
- Resolved
Lactic acidosis:
- Resolved, continue to monitor
CODE STATUS: Full code
DVT prophylaxis: Subcu heparin
Diet: Regular diet
Disposition: Medically stable for discharge, pending placement.
Total time spent on today's encounter was 35 minutes which included time spent in counseling the patient/family regarding diagnosis and treatment plan as listed above, goals of care, and symptom management. Case was discussed with nursing staff,
specialists, and care coordinators/case management. All labs and imaging personally reviewed by me. Remainder the time spent in detailed review of previous records, lab data, imaging, and other medical provider documentation.
Anticipated Discharge: 24 - 48 hours
Subjective/Interval History
-
Date of Service: January 15, 2025
Patient was seen and examined at bedside this morning. Feeling well other than chronic myalgias. Awaiting SNF placement.
Objective Data
-
Labs:
Laboratory Results
01/15/25
04:42
BUN 15
Creatinine 0.7
Vital Signs:
Vital Signs
Temp Pulse Resp BP Pulse Ox
98.1 F 98 18 137/90 98
01/15/25 07:23 01/15/25 08:45 01/15/25 07:23 01/15/25 08:45 01/15/25 07:23
I&O
01/14/25 01/15/25 01/16/25
06:59 06:59 06:59
Intake Total 1600 / 1600 3084 / 3084
Output Total 2650 / 2650 1999 / 1999
Balance -1050 / -1050 1084 / 1084
Review of Systems
-
History Source: Patient
All other systems: Reviewed and negative
Physical Exam
-
General: No Apparent Distress
--- NOTE | 2025-01-15 11:21 | CM ---
Addendum entered by Montrell Salgado 01/15/25 15:40:
[facility]ANDRINA [facility] support representative Pallavi Ledbetter, call ref #: [id number] and she confirmed that a request still review status, no auth is generated yet and it can be checked tomorrow on portal [employer] and calling back to [facility] at [phone] to
check the status.
Addendum entered by Montrell Salgado 01/15/25 11:55:
ALEJANDRINA received a phone call from [facility] PPO operations support representative Roxana and requested pt's clinical faxed to [phone].
Awaiting for an auth.
Original Note:
CM following re: discharge planning.
Reviewed pt's chart, met with pt.
According to MD pt is medically stable to be discharged to a SNF and pt will need 9 days of IV antibiotics.
Pt's referrals have been declined by many SNFs. CM re-initiated a referral to [facility] again. [facility] game designer/creative director met with the pt and based on pt';s communication, pt is accepted for admission to [facility]. Pt expressed
his great satisfaction especially it is very close to his parents to visit him. Pt expressed again his desire to stay clean.
Per [facility] game designer/creative director they are not in network with pt's insurance and one time contract will require.
[facility]
Admitting physician: Dr. Viktor Jimenez .
ALEJANDRINA initiated an auth from [facility] PPO choice [phone], spoke to operations support representative Ms. Kerr, a case is initiated, pending ref/auth number: [id number]. Per operations support representative Ms. Kerr, someone from [facility] insurance will call back to request pt's clinical.
Awaiting for an auth
LISETH Hamilton met with pt and he is setting up outpatient Suboxone treatment at [facility].
D/C plan: [facility] for a short term rehab: completion IV antibiotics treatment for 9 days.
CM will follow to assist pt with discharge to [facility].
--- NOTE | 2025-01-15 13:57 | W.PN.ID1 ---
Date of Service
Date of Service: January 15, 2025
Today's Communication
Continue abx's through 01/23.
Assessment / Plan
# Complicated Staphylococcus aureus (MRSA/MSSA) bacteremia
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
# Multiple embolic CVA
# New dx of hepatitis C infection: Hepatitic C Ab positive; HCV RNA 2,190,000
# LUE PICC associated DVT, PICC dc'd 12/14
# Fever and leukocytosis resolved
# s/p Intubated 12/03, extubated 12/12/24
# Polysubstance abuse (cocaine and fentanyl 'muscle-ling')
# hx MRSA wound abscesses (2010)
# hx of Viridans strep bacteremia (2010)
- 12/14 repeat TTE: 1.6 x 2 cm echodensity MV
- 12/12/24 Last positive Blood cx MRSA
- 12/13/24 forward, negtive blood cx's.
- 12/14/24 PICC D/C'ed; tip cx without growth
- HIV screen negative.
- Hepatitic C Ab positive; HCV RNA 2,190,000
- anemia requiring pRBC transfusion
- 12/25 s/p 15 tooth extractions
- 12/29 Repeat KELI MV vegetation smaller, but mitral regurgitation worse, new moderate pericardial effusion.
- 01/01 s/p pericardiocentesis, cx neg to date
- There is discrepancy between blood cx PCR (identified as MRSA) and phenotype (identified as MSSA)
Cefoxitin induced test negative. PBP2a negative.
Discussed with S. aureus experts.
Best to treat as both MRSA and MSSA since there are only few publications regarding this particular strain of S. aureus.
- Continue IV Vancomycin and Nafcillin 2g IV q4h (both crosses blood-brain barrier), 6 weeks of IV antibiotics from negative blood cx, through 01/23/2025
- Monitor renal function and LFT's while on nafcillin.
- Close monitoring of vancomycin levels to prevent nephrotoxicity. Appreciate pharmacists.
- Eventual referral to cyanide pot hardener for HCV treatment.
- As expected, none of the local SNF/Rehab accepts patient.
Chief Complaint
-: Bacteremia and Other (embolic CVA)
Subjective / Review of Systems
No complaints.
Vital Signs / Physical Exam
Vital Signs
Vital Signs
Temp Pulse Resp BP Pulse Ox
98.3 F 104 18 119/76 98
01/15/25 11:18 01/15/25 11:18 01/15/25 11:18 01/15/25 11:18 01/15/25 11:18
Physical Exam
Constitutional: No Acute Distress and Comfortable
Eyes: Sclera Anicteric
Cardiovascular: Regular Rate and S1/S2
Pulmonary: Clear and Non Labored
Gastrointestinal: Soft and Non Distended
Extremities: Edema (BLE improving)
Neurological: AO x 3
Lines: PICC
Objective Data
Lab Data
Lab Results
01/13/25 07:51
01/15/25 04:42
PT 15.1 Sec (11.4-14.6) H 12/26/24 06:08
INR 1.16 12/26/24 06:08
APTT 30.9 Sec (23.4-35.0) 12/26/24 06:08
Estimated Creat Clear > 125 ml/min 01/15/25 04:42
Lactic Acid 1.3 mmol/L (0.7-2.0) 12/05/24 16:46
Total Bilirubin 0.8 mg/dl (0.2-1.3) 12/26/24 06:08
AST 21 U/L (17-59) 12/26/24 06:08
ALT 13 U/L (0-50) 12/26/24 06:08
Alkaline Phosphatase 103 U/L (38-126) 12/26/24 06:08
Amylase 139 U/L (30-110) H 12/05/24 04:04
Most recent labs reviewed.
Micro Results:
01/01/25 11:21 Fungal Culture - Preliminary
Pericardial Fluid Culture in progress.
Positive cultures are reported as soon as detected.
Final report to follow in four to five weeks.
01/01/25 11:21 Body Fluid Culture - Final
Pericardial Fluid No Growth After 72 Hours
Gram Stain - Final
01/01/25 11:21 Acid Fast Bacilli Smear - Preliminary
Pericardial Fluid Acid Fast Bacilli Culture - Preliminary
01/01/25 11:23 Fungal Smear - Final
Pericardial Fluid No yeast or fungal elements seen.
12/17/24 07:12 Blood Culture - Final
Blood/Venous No Growth - Final Report
12/16/24 03:40 Blood Culture - Final
Blood/Venous No Growth - Final Report
12/15/24 04:33 Blood Culture - Final
Blood/Venous No Growth - Final Report
12/14/24 16:37 Blood Culture - Final
Blood/Venous No Growth - Final Report
12/12/24 03:10 Blood Culture - Final
Blood/Venous Staph aureus MRSA
Gram Stain - Final
12/13/24 04:07 Blood Culture - Final
Blood/Venous No Growth - Final Report
12/14/24 12:53 Catheter Tip Culture - Final
Picc No Growth After 72 Hours
12/09/24 03:54 Blood Culture - Final
Blood/Venous Staph aureus MRSA
Gram Stain - Final
12/08/24 03:02 Blood Culture - Final
Blood/Venous Staph aureus MRSA
Gram Stain - Final
12/11/24 03:33 Blood Culture - Final
Blood/Venous No Growth - Final Report
12/10/24 03:14 Blood Culture - Final
Blood/Venous No Growth - Final Report
12/07/24 04:06 Blood Culture - Final
Blood/Venous Staph aureus MRSA
Gram Stain - Final
12/03/24 08:20 Blood Culture - Final
Blood/Venous Staph aureus MRSA
Gram Stain - Final
12/03/24 09:21 Blood Culture - Final
Blood/Venous Staph aureus MRSA
Gram Stain - Final
12/05/24 16:46 Blood Culture - Final
Blood/Venous Staph aureus MRSA
Gram Stain - Final
12/05/24 13:38 Blood Culture - Final
Blood/Venous Staph aureus MRSA
Gram Stain - Final
12/03/24 08:38 Urine Culture - Final
Urine S aureus-Methicillin Sensitive
12/03/24 18:44 MRSA Screen - Final
Nose No Methicillin Resistant Staphylococcus aureus isolated.
Imaging:
12/05/24 CT a/p: Mild inflammatory change adjacent to the body and tail of the pancreas, suggestive of mild pancreatitis. No peripancreatic fluid collection appreciated. No evidence of intestinal obstruction or bowel inflammatory process. Study is
slightly limited by lack of intravenous or oral contrast. Gallbladder sludge without evidence of acute cholecystitis. No radiopaque gallstones are seen.
12/04/24 MRI brain: Numerous scattered acute infarctions in a distribution that is most suggestive of embolic phenomenon in the setting of known IV drug abuse. Multiple small microhemorrhages are also demonstrated.
12/03/24 CXR: Clear lungs.
12/03/[address]: Possible cortical petechial hemorrhages in the left frontal lobe and left occipital lobe. Possible small old infarct, periventricular small vessel ischemic disease or edema due to underlying mass in the left occipital lobe.
[2025-01-15] MEDS: DESENEX/MITRAZOL/ZEASORB 1 APPLIC TOPICAL (22:21)
[2025-01-15] MEDS: MELATONIN 10 MG PO (22:25)
[2025-01-15] MEDS: SUBUTEX 4 MG SL (22:25)
[2025-01-16] MEDS: NAFCIL 108 MG IV ×6 (01:38→22:26)
[2025-01-16 03:04] VITALS: BP 115/70
[2025-01-16 06:00] VITALS: BMI 23.3
[2025-01-16 07:00] VITALS: BP 141/90
--- NOTE | 2025-01-16 08:05 | PHA.VAN.FU ---
Vancomycin Assessment / Plan
- Assessment
Renal Function: No New Labs Today
In the past 24 hrs, patient has been: Afebrile
Concomitant Antimicrobials: nafcillin
- Dosing Plan
Continue: Vanc 1500mg Q24H
- Monitoring Plan
Level(s) appropriate: Recheck trough at minimum of weekly intervals, Repeat sooner for changes in renal function or clinical status
Next Level Due (Date): ~01/22 (course to complete 01/23 - may consider holding off further levels)
- Follow Up
Pharmacy will continue to follow.
Vancomycin Follow UP
- -
Patient Age: 39
Patient Sex: Male
Vancomycin Day #: 45
Indication: Bacteremia
Requesting Provider: Dr. Fofana / Teto
Pertinent Antimicrobial Allergies:
NKDA
Height / Weight:
Height 6 ft 2 in
Actual Weight 82.1 kg
IBW in k.2
Pertinent Past Medical History: IV JOCELIN
- Vital Signs / Lab Results
Temp Pulse Resp BP Pulse Ox
98.1 F 101 18 141/90 100
01/16/25 07:00 01/16/25 07:00 01/16/25 07:00 01/16/25 07:00 01/16/25 07:00
Lab Results - Hematology
01/13/25
07:51
WBC 8.4
Lab Results - Chemistry
01/13/25 01/15/25
07:51 04:42
BUN 14 15
Creatinine 0.7 0.7
Estimated Creat Clear > 125 > 125
Microbiology Results
01/01/25 11:21 Fungal Culture - Preliminary
Pericardial Fluid Culture in progress.
Positive cultures are reported as soon as detected.
Final report to follow in four to five weeks.
Therapeutic Drug Monitoring
Vancomycin Peak 28.8 ug/ml (18-26) H 01/07/25 09:33
Vancomycin Trough 11.0 ug/ml (5-20) 01/15/25 07:27
Random Vancomycin 13.9 ug/ml 12/21/24 03:53
[2025-01-16] MEDS: VANCOCIN 530 MG IV (08:37)
[2025-01-16] MEDS: THERAGRAN 1 TABLET PO (08:38)
[2025-01-16] MEDS: SUBUTEX 16 MG SL (08:38)
[2025-01-16] MEDS: VITAMIN B1 100 MG PO (08:38)
[2025-01-16] MEDS: ALDACTONE 25 MG PO ×2 (08:38→21:00)
[2025-01-16] MEDS: MAGNESIUM OXIDE 400 MG PO (08:38)
[2025-01-16] MEDS: COREG 25 MG PO ×2 (08:39→21:00)
[2025-01-16] MEDS: TYLENOL 1000 MG PO ×2 (08:39→16:17)
[2025-01-16] MEDS: LOW STRENGTH ASPIRIN 81 MG PO (08:39)
[2025-01-16] MEDS: CATAPRES 0.3 MG PO ×3 (08:39→22:26)
[2025-01-16] MEDS: LASIX 40 MG PO (08:39)
[2025-01-16] MEDS: DESENEX/MITRAZOL/ZEASORB TOPICAL (08:40)
[2025-01-16] MEDS: HEPARIN 5000 UNITS SC ×2 (08:40→16:17)
--- NOTE | 2025-01-16 09:55 | CM ---
Addendum entered by Nayeli Holley RN 01/16/25 11:59:
Fax not received. CM spoke with assurance senior manager insurance [employer] ([phone]) regarding fax. Per Rea, it can take 48-72 hrs for the fax to be received.
Original Note:
Reviewed the chart notes and received update from yesterday's CM to call [phone] to check status of initiated auth for [facility] and request one time case agreement. Number did not connect. Call placed to [phone] and informed that the
plan is a [place] Medicaid plan and needed to call [phone]. CM spoke with retail wireless sales representative Coby regarding the above. Provided her with programming director Effie's number. Per Coby, further information is needed and she will fax paperwork with
requested information to be completed. CM continues to be available to patient/family and is monitoring medical plan for needs at discharge.
Plan: Discharge to [facility] once an agreement is completed between [facility] and the patient's insurance carrier.
--- NOTE | 2025-01-16 10:42 | W.PN.HOSP.TC ---
Today's Communication/Plan
-
Assessment / Plan
Assessment / Plan
General: No Apparent Distress, Comfortable and Conversant
HEENT: NormoCephalic, Moist mucous membranes, Atraumatic, poor dentition
Respiratory: Clear and Non Labored Respirations
Cardiac: S1/S2 and Regular Rhythm; No Rub or Gallop
GI: Soft, Non Tender, Non Distended and Normal Bowel Sounds
Musculoskeletal: No Edema, no deformity
: NO Balderas
Neuro: Awake, Alert, Nonfocal/grossly intact
Psych: Calm and Intact Judgment/Insight
Impression:
Patient is a 39-year-old male with a medical history of polysubstance abuse (skin popping with fentanyl) who was admitted after presentation with altered mental status. He was brought in by his parents with tremors and confusion. His mental status
abruptly declined and he was intubated for airway protection. CT brain showed possible left occipital lobe mass. His blood cultures are positive for MRSA. He was initially being managed in the ICU for treatment of encephalopathy and bacteremia.
Patient extubated and downgraded to general medical floors.
CT surgery recommending dental extraction while in the hospital and consider valve replacement during this admission.
status post 15 tooth extraction 01/04, follow-up CT surgeon recommendation regarding valve replacement.
Hemoglobin dropped again, now status post 2 more units of blood transfusion.
Repeat echocardiogram shows
1. Normal left ventricular size, wall thickness and systolic function. No regional wall motion abnormalities are seen.
2. Ejection fraction is 60-65% by visual assesment.
3. Trace mitral valve regurgitation. Mobile echodensity consistent with known endocarditis seen near the mitral valve posterior leaflet annulus.
4. Moderate circumferential pericardial effusion without evidence of tamponade physiology.
5. Compared to a prior echo from December 14 2024, which was reviewed, there is now a moderate pericardial effusion, findings are otherwise similar.
6. Fair image quality.
KELI 12/29/2024: EF 65%, moderate in size partially mobile echodensity attached to the mitral valve annulus and also at the posterior leaflet of P1/P2, eccentric jet of moderate MR present around echodensity/vegetation, moderate pericardial effusion
Pericardiocentesis 01/01.
Pericardiocentesis drain removed.
Pending placement.
01/11
Echo shows:
1. Normal left ventricular size, wall thickness and systolic function. No regional wall motion abnormalities are seen. LVEF 55-60%.
2. Right ventricular size and systolic function are within normal limits.
3. Moderate mitral valve regurgitation. Mitral regurgitation jet is eccentrically directed
4. There remains a prominence at the mitral valve annulus consistent with known prior endocarditis.
5. Trivial pericardial effusion is noted.
6. Compared to a prior transthoracic echocardiogram study from 01/04/25 The mitral regurgitation may be slightly worse.
Assessment/plan:
Septic shock secondary to MRSA/MSSA bacteremia:
- Off vasopressors and downgraded to general medical floors
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
- Afebrile since 12/11, leukocytosis resolved
- Transesophageal echocardiogram 12/06 showed large mitral annulus vegetation
- ID following, continue antibiotics with vancomycin and nafcillin, repeat cultures negative since 12/13
- Continue antibiotics with vancomycin and nafcillin through 01/23/2025 (6 weeks from sterile cultures on 12/13)
- status post 15 tooth extraction 12/25, follow-up CT surgeon recommendation regarding valve replacement
- Repeat KELI 12/29 showed moderately sized partially mobile echodensity attached to the mitral valve annulus and also the posterior leaflet of P1/P2, also showed moderate pericardial effusion
- Pericardiocentesis 01/01 with approximately 350 cc of sanguinous output, cultures with no growth to date, drain left in place initially but was removed evening of 01/03, patient feeling well
- Awaiting rehab placement for ongoing antibiotic administration and physical therapy.
- Repeat echo 01/11 shows trivial pericardial effusion
Pericardial effusion:
- Pericardiocentesis 01/01 with 350 cc of sanguinous output, cultures with no growth to date, drain initially left in place with very minimal output, drain was later removed 01/03
- follow up echo 01/11 shows Trivial pericardial effusion is noted.
Polysubstance abuse:
- Long history of injection drug abuse
- Now doing well with initiation of buprenorphine treatment, currently 16 mg sublingual daily and 4 mg at night which we will continue, also uses Suboxone for chronic myalgias
- Will need coordination with [facility] at time of hospital discharge
Anemia requiring transfusion
- Transfused 1 unit PRBCs for hemoglobin of 7.2 on 12/19, a second unit PRBCs 12/21 for hemoglobin 6.9, hemoglobin appropriately improved, remained stable around 7.5
- No evidence of active bleeding, will attempt to limit blood draws
- Hemoglobin again dropped below 7.0 on 12/27 and 12/28, he was transfused 2 additional units of PRBCs at that time with subsequent improvement in hemoglobin
- Hemoglobin dropped to 8.1 01/04 possibly due to sanguinous pericardial output, remains hemodynamically stable, hemoglobin stable at 8.4 on repeat H&H
- Currently stable, Will monitor
Chronic pain
- Continue Suboxone for generalized myalgias which he also uses for addiction therapy
Acute hypoxic respiratory failure.
Ventilation dependent respiratory failure.
12/13
Patient extubated
Acute toxic metabolic encephalopathy:
- EEG with no acute epileptiform activity captured
- Encephalopathy likely multifactorial due to bacteremia, opiate withdrawal, and and suspected septic emboli to brain
- MRI brain consistent with suspicion for septic emboli, repeat CT brain shows stable findings
- Now resolved, patient at baseline mental status, extubated 12/13
Left upper extremity DVT involving brachial vein
Given his multiple scattered acute infarctions with microhemorrhages, patient is high risk for ICH if systemic anticoagulation started
PICC line removed repeat ultrasound shows left brachial vein nonocclusive DVT.
continue subcu heparin.
Hypomagnesemia:
- Resolved, monitor
LE:
- Resolved
Hypokalemia:
- Resolved
- Monitor
Rhabdomyolysis:
- Resolved
Elevated LFTs:
- Suspect due to severe sepsis
- Resolved, monitor with treatment as above
Pancreatitis:
- Resolved
Lactic acidosis:
- Resolved, continue to monitor
CODE STATUS: Full code
DVT prophylaxis: Subcu heparin
Diet: Regular diet
Disposition: Medically stable for discharge, pending placement.
Total time spent on today's encounter was 35 minutes which included time spent in counseling the patient/family regarding diagnosis and treatment plan as listed above, goals of care, and symptom management. Case was discussed with nursing staff,
specialists, and care coordinators/case management. All labs and imaging personally reviewed by me. Remainder the time spent in detailed review of previous records, lab data, imaging, and other medical provider documentation.
Anticipated Discharge: > 48 hours
Subjective/Interval History
-
Date of Service: January 16, 2025
Patient is awaiting SNF placement for ongoing antibiotic treatment.
Objective Data
-
Vital Signs:
Vital Signs
Temp Pulse Resp BP Pulse Ox
98.1 F 101 18 141/90 100
01/16/25 07:00 01/16/25 08:39 01/16/25 07:00 01/16/25 08:39 01/16/25 07:00
I&O
01/15/25 01/16/25 01/17/25
06:59 06:59 06:59
Intake Total 3084 / 3084 216 / 216
Output Total 1999 1350 / 1350
Balance 1084 / 1084 -1134 / -1134
Review of Systems
-
History Source: Patient
All other systems: Reviewed and negative
Physical Exam
-
General: No Apparent Distress
[2025-01-16 11:00] VITALS: BP 118/70
[2025-01-16 15:00] VITALS: BP 116/68
[2025-01-16 19:10] VITALS: BP 116/74
[2025-01-16] MEDS: SUBUTEX 4 MG SL (22:25)
[2025-01-16] MEDS: MELATONIN 10 MG PO (22:26)
[2025-01-16] MEDS: DESENEX/MITRAZOL/ZEASORB 1 APPLIC TOPICAL (22:27)
[2025-01-16 23:43] VITALS: BP 127/80
[2025-01-17] VITALS (7 sets, daily range): BP systolic 107–151; BP diastolic 56–94; PULSE 99; O2SAT 99; BMI 23.4
[2025-01-17] MEDS: TYLENOL 1000 MG PO ×3 (01:00→16:08)
[2025-01-17] MEDS: HEPARIN 5000 UNITS SC ×3 (01:00→16:09)
[2025-01-17] MEDS: NAFCIL 108 MG IV ×6 (01:43→22:05)
--- NOTE | 2025-01-17 08:09 | PHA.VAN.FU ---
Vancomycin Assessment / Plan
- Assessment
Renal Function: Stable
WBC's are: WNL
In the past 24 hrs, patient has been: Afebrile
Concomitant Antimicrobials: nafcillin
- Dosing Plan
Continue: Vanc 1500mg Q24H
- Monitoring Plan
No level(s) ordered at this time: consider levels in next few days
- Follow Up
Pharmacy will continue to follow.
Vancomycin Follow UP
- -
Patient Age: 39
Patient Sex: Male
Vancomycin Day #: 46
Indication: Bacteremia
Requesting Provider: Dr. Fofana / Teto
Pertinent Antimicrobial Allergies:
NKDA
Height / Weight:
Height 6 ft 2 in
Actual Weight 82.508 kg
IBW in k.2
Pertinent Past Medical History: IV JOCELIN
- Vital Signs / Lab Results
Temp Pulse Resp BP Pulse Ox
97.8 F 92 16 118/75 99
01/17/25 03:20 01/17/25 03:20 01/17/25 03:20 01/17/25 03:20 01/17/25 03:29
Lab Results - Chemistry
01/15/25
04:42
BUN 15
Creatinine 0.7
Estimated Creat Clear > 125
Microbiology Results
01/01/25 11:21 Fungal Culture - Preliminary
Pericardial Fluid Culture in progress.
Positive cultures are reported as soon as detected.
Final report to follow in four to five weeks.
Therapeutic Drug Monitoring
Vancomycin Peak 28.8 ug/ml (18-26) H 01/07/25 09:33
Vancomycin Trough 11.0 ug/ml (5-20) 01/15/25 07:27
Random Vancomycin 13.9 ug/ml 12/21/24 03:53
[2025-01-17] MEDS: CATAPRES 0.3 MG PO ×3 (08:34→22:09)
[2025-01-17] MEDS: VANCOCIN 530 MG IV (08:34)
[2025-01-17] MEDS: VITAMIN B1 100 MG PO (08:34)
[2025-01-17] MEDS: SUBUTEX 16 MG SL (08:34)
[2025-01-17] MEDS: LASIX 40 MG PO (08:35)
[2025-01-17] MEDS: ALDACTONE 25 MG PO ×2 (08:35→20:39)
[2025-01-17] MEDS: MAGNESIUM OXIDE 400 MG PO (08:36)
[2025-01-17] MEDS: LOW STRENGTH ASPIRIN 81 MG PO (08:36)
[2025-01-17] MEDS: COREG 25 MG PO ×2 (08:36→20:39)
[2025-01-17] MEDS: DESENEX/MITRAZOL/ZEASORB TOPICAL (08:36)
[2025-01-17] MEDS: THERAGRAN 1 TABLET PO (08:36)
--- NOTE | 2025-01-17 11:02 | W.PN.ID1 ---
Date of Service
Date of Service: January 17, 2025
Today's Communication
Continue abx's through 01/23/25.
Assessment / Plan
# Complicated Staphylococcus aureus (MRSA/MSSA) bacteremia
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
# Multiple embolic CVA
# New dx of hepatitis C infection: Hepatitic C Ab positive; HCV RNA 2,190,000
# LUE PICC associated DVT, PICC dc'd 12/14
# Fever and leukocytosis resolved
# s/p Intubated 12/03, extubated 12/12/24
# Polysubstance abuse (cocaine and fentanyl 'muscle-ling')
# hx MRSA wound abscesses (2010)
# hx of Viridans strep bacteremia (2010)
- 12/14 repeat TTE: 1.6 x 2 cm echodensity MV
- 12/12/24 Last positive Blood cx MRSA
- 12/13/24 forward, negtive blood cx's.
- 12/14/24 PICC D/C'ed; tip cx without growth
- HIV screen negative.
- Hepatitic C Ab positive; HCV RNA 2,190,000
- 12/25 s/p 15 tooth extractions
- 12/29 Repeat KELI MV vegetation smaller, but mitral regurgitation worse, new moderate pericardial effusion.
- 01/01 s/p pericardiocentesis, cx neg to date
- There is discrepancy between blood cx PCR (identified as MRSA) and phenotype (identified as MSSA)
Cefoxitin induced test negative. PBP2a negative.
Discussed with S. aureus experts.
Best to treat as both MRSA and MSSA since there are only few publications regarding this particular strain of S. aureus.
- Continue IV Vancomycin and Nafcillin 2g IV q4h (both crosses blood-brain barrier), 6 weeks of IV antibiotics from negative blood cx, through 01/23/2025
- Monitor renal function and LFT's while on nafcillin.
- Close monitoring of vancomycin levels to prevent nephrotoxicity. Appreciate pharmacists.
- Eventual referral to psychiatric security nurse for HCV treatment.
Chief Complaint
-: Bacteremia and Other (embolic CVA)
Subjective / Review of Systems
No new events/issue. Continues to improve, not as deconditioned.
Vital Signs / Physical Exam
Vital Signs
Vital Signs
Temp Pulse Resp BP Pulse Ox
98 F 102 20 151/94 99
01/17/25 07:07 01/17/25 08:35 01/17/25 07:07 01/17/25 08:35 01/17/25 07:07
Physical Exam
Constitutional: No Acute Distress
Eyes: Sclera Anicteric
Cardiovascular: Regular Rate and S1/S2
Pulmonary: Clear and Non Labored
Gastrointestinal: Soft and Non Distended
Extremities: Edema (BLE improving)
Neurological: AO x 3
Lines: PICC
Objective Data
Lab Data
Lab Results
01/13/25 07:51
01/15/25 04:42
PT 15.1 Sec (11.4-14.6) H 12/26/24 06:08
INR 1.16 12/26/24 06:08
APTT 30.9 Sec (23.4-35.0) 12/26/24 06:08
Estimated Creat Clear > 125 ml/min 01/15/25 04:42
Lactic Acid 1.3 mmol/L (0.7-2.0) 12/05/24 16:46
Total Bilirubin 0.8 mg/dl (0.2-1.3) 12/26/24 06:08
AST 21 U/L (17-59) 12/26/24 06:08
ALT 13 U/L (0-50) 12/26/24 06:08
Alkaline Phosphatase 103 U/L (38-126) 12/26/24 06:08
Amylase 139 U/L (30-110) H 12/05/24 04:04
Most recent labs reviewed.
Micro Results:
01/01/25 11:21 Fungal Culture - Preliminary
Pericardial Fluid Culture in progress.
Positive cultures are reported as soon as detected.
Final report to follow in four to five weeks.
01/01/25 11:21 Body Fluid Culture - Final
Pericardial Fluid No Growth After 72 Hours
Gram Stain - Final
01/01/25 11:21 Acid Fast Bacilli Smear - Preliminary
Pericardial Fluid Acid Fast Bacilli Culture - Preliminary
01/01/25 11:23 Fungal Smear - Final
Pericardial Fluid No yeast or fungal elements seen.
12/17/24 07:12 Blood Culture - Final
Blood/Venous No Growth - Final Report
12/16/24 03:40 Blood Culture - Final
Blood/Venous No Growth - Final Report
12/15/24 04:33 Blood Culture - Final
Blood/Venous No Growth - Final Report
12/14/24 16:37 Blood Culture - Final
Blood/Venous No Growth - Final Report
12/12/24 03:10 Blood Culture - Final
Blood/Venous Staph aureus MRSA
Gram Stain - Final
12/13/24 04:07 Blood Culture - Final
Blood/Venous No Growth - Final Report
12/14/24 12:53 Catheter Tip Culture - Final
Picc No Growth After 72 Hours
12/09/24 03:54 Blood Culture - Final
Blood/Venous Staph aureus MRSA
Gram Stain - Final
12/08/24 03:02 Blood Culture - Final
Blood/Venous Staph aureus MRSA
Gram Stain - Final
12/11/24 03:33 Blood Culture - Final
Blood/Venous No Growth - Final Report
12/10/24 03:14 Blood Culture - Final
Blood/Venous No Growth - Final Report
12/07/24 04:06 Blood Culture - Final
Blood/Venous Staph aureus MRSA
Gram Stain - Final
12/03/24 08:20 Blood Culture - Final
Blood/Venous Staph aureus MRSA
Gram Stain - Final
12/03/24 09:21 Blood Culture - Final
Blood/Venous Staph aureus MRSA
Gram Stain - Final
12/05/24 16:46 Blood Culture - Final
Blood/Venous Staph aureus MRSA
Gram Stain - Final
12/05/24 13:38 Blood Culture - Final
Blood/Venous Staph aureus MRSA
Gram Stain - Final
12/03/24 08:38 Urine Culture - Final
Urine S aureus-Methicillin Sensitive
12/03/24 18:44 MRSA Screen - Final
Nose No Methicillin Resistant Staphylococcus aureus isolated.
Imaging:
12/05/24 CT a/p: Mild inflammatory change adjacent to the body and tail of the pancreas, suggestive of mild pancreatitis. No peripancreatic fluid collection appreciated. No evidence of intestinal obstruction or bowel inflammatory process. Study is
slightly limited by lack of intravenous or oral contrast. Gallbladder sludge without evidence of acute cholecystitis. No radiopaque gallstones are seen.
12/04/24 MRI brain: Numerous scattered acute infarctions in a distribution that is most suggestive of embolic phenomenon in the setting of known IV drug abuse. Multiple small microhemorrhages are also demonstrated.
12/03/24 CXR: Clear lungs.
12/03/[address]: Possible cortical petechial hemorrhages in the left frontal lobe and left occipital lobe. Possible small old infarct, periventricular small vessel ischemic disease or edema due to underlying mass in the left occipital lobe.
--- NOTE | 2025-01-17 12:12 | CM ---
Received voice message from Tate ([phone]) [facility] property insurance inspector that the request for SNF has been approved and they will be moving forward with [facility] for a one time case agreement. CM continues to be available to
patient/family and is monitoring medical plan for needs at discharge.
Plan: Discharge to [facility] once auth one time case agreement completed between insurance and facility.
--- NOTE | 2025-01-17 12:45 | W.PN.HOSP.TC ---
Today's Communication/Plan
-
Assessment / Plan
Assessment / Plan
General: No Apparent Distress, Comfortable and Conversant
HEENT: NormoCephalic, Moist mucous membranes, Atraumatic, poor dentition
Respiratory: Clear and Non Labored Respirations
Cardiac: S1/S2 and Regular Rhythm; No Rub or Gallop
GI: Soft, Non Tender, Non Distended and Normal Bowel Sounds
Musculoskeletal: No Edema, no deformity
: NO Balderas
Neuro: Awake, Alert, Nonfocal/grossly intact
Psych: Calm and Intact Judgment/Insight
Impression:
Patient is a 39-year-old male with a medical history of polysubstance abuse (skin popping with fentanyl) who was admitted after presentation with altered mental status. He was brought in by his parents with tremors and confusion. His mental status
abruptly declined and he was intubated for airway protection. CT brain showed possible left occipital lobe mass. His blood cultures are positive for MRSA. He was initially being managed in the ICU for treatment of encephalopathy and bacteremia.
Patient extubated and downgraded to general medical floors.
CT surgery recommending dental extraction while in the hospital and consider valve replacement during this admission.
status post 15 tooth extraction 01/04, follow-up CT surgeon recommendation regarding valve replacement.
Hemoglobin dropped again, now status post 2 more units of blood transfusion.
Repeat echocardiogram shows
1. Normal left ventricular size, wall thickness and systolic function. No regional wall motion abnormalities are seen.
2. Ejection fraction is 60-65% by visual assesment.
3. Trace mitral valve regurgitation. Mobile echodensity consistent with known endocarditis seen near the mitral valve posterior leaflet annulus.
4. Moderate circumferential pericardial effusion without evidence of tamponade physiology.
5. Compared to a prior echo from December 14 2024, which was reviewed, there is now a moderate pericardial effusion, findings are otherwise similar.
6. Fair image quality.
KELI 12/29/2024: EF 65%, moderate in size partially mobile echodensity attached to the mitral valve annulus and also at the posterior leaflet of P1/P2, eccentric jet of moderate MR present around echodensity/vegetation, moderate pericardial effusion
Pericardiocentesis 01/01.
Pericardiocentesis drain removed.
Pending placement.
01/11
Echo shows:
1. Normal left ventricular size, wall thickness and systolic function. No regional wall motion abnormalities are seen. LVEF 55-60%.
2. Right ventricular size and systolic function are within normal limits.
3. Moderate mitral valve regurgitation. Mitral regurgitation jet is eccentrically directed
4. There remains a prominence at the mitral valve annulus consistent with known prior endocarditis.
5. Trivial pericardial effusion is noted.
6. Compared to a prior transthoracic echocardiogram study from 01/04/25 The mitral regurgitation may be slightly worse.
Assessment/plan:
Septic shock secondary to MRSA/MSSA bacteremia:
- Off vasopressors and downgraded to general medical floors
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
- Afebrile since 12/11, leukocytosis resolved
- Transesophageal echocardiogram 12/06 showed large mitral annulus vegetation
- ID following, continue antibiotics with vancomycin and nafcillin, repeat cultures negative since 12/13
- Continue antibiotics with vancomycin and nafcillin through 01/23/2025 (6 weeks from sterile cultures on 12/13)
- status post 15 tooth extraction 12/25, follow-up CT surgeon recommendation regarding valve replacement
- Repeat KELI 12/29 showed moderately sized partially mobile echodensity attached to the mitral valve annulus and also the posterior leaflet of P1/P2, also showed moderate pericardial effusion
- Pericardiocentesis 01/01 with approximately 350 cc of sanguinous output, cultures with no growth to date, drain left in place initially but was removed evening of 01/03, patient feeling well
- Awaiting rehab placement for ongoing antibiotic administration and physical therapy.
- Repeat echo 01/11 shows trivial pericardial effusion
- Medically stable
Pericardial effusion:
- Pericardiocentesis 01/01 with 350 cc of sanguinous output, cultures with no growth to date, drain initially left in place with very minimal output, drain was later removed 01/03
- follow up echo 01/11 shows Trivial pericardial effusion is noted.
Polysubstance abuse:
- Long history of injection drug abuse
- Now doing well with initiation of buprenorphine treatment, currently 16 mg sublingual daily and 4 mg at night which we will continue, also uses Suboxone for chronic myalgias
- Will need coordination with [facility] at time of hospital discharge
- Will need Suboxone clinic arranged
Anemia requiring transfusion
- Transfused 1 unit PRBCs for hemoglobin of 7.2 on 12/19, a second unit PRBCs 12/21 for hemoglobin 6.9, hemoglobin appropriately improved, remained stable around 7.5
- No evidence of active bleeding, will attempt to limit blood draws
- Hemoglobin again dropped below 7.0 on 12/27 and 12/28, he was transfused 2 additional units of PRBCs at that time with subsequent improvement in hemoglobin
- Hemoglobin dropped to 8.1 01/04 possibly due to sanguinous pericardial output, remains hemodynamically stable, hemoglobin stable at 8.4 on repeat H&H
- Currently stable, Will monitor
Chronic pain
- Continue Suboxone for generalized myalgias which he also uses for addiction therapy
Acute hypoxic respiratory failure.
Ventilation dependent respiratory failure.
12/13
Patient extubated
Acute toxic metabolic encephalopathy:
- EEG with no acute epileptiform activity captured
- Encephalopathy likely multifactorial due to bacteremia, opiate withdrawal, and and suspected septic emboli to brain
- MRI brain consistent with suspicion for septic emboli, repeat CT brain shows stable findings
- Now resolved, patient at baseline mental status, extubated 12/13
Left upper extremity DVT involving brachial vein
Given his multiple scattered acute infarctions with microhemorrhages, patient is high risk for ICH if systemic anticoagulation started
PICC line removed repeat ultrasound shows left brachial vein nonocclusive DVT.
continue subcu heparin.
Hypomagnesemia:
- Resolved, monitor
LE:
- Resolved
Hypokalemia:
- Resolved
- Monitor
Rhabdomyolysis:
- Resolved
Elevated LFTs:
- Suspect due to severe sepsis
- Resolved, monitor with treatment as above
Pancreatitis:
- Resolved
Lactic acidosis:
- Resolved, continue to monitor
CODE STATUS: Full code
DVT prophylaxis: Subcu heparin
Diet: Regular diet
Disposition: Medically stable for discharge, pending placement.
Total time spent on today's encounter was 35 minutes which included time spent in counseling the patient/family regarding diagnosis and treatment plan as listed above, goals of care, and symptom management. Case was discussed with nursing staff,
specialists, and care coordinators/case management. All labs and imaging personally reviewed by me. Remainder the time spent in detailed review of previous records, lab data, imaging, and other medical provider documentation.
Anticipated Discharge: 24 - 48 hours
Subjective/Interval History
-
Date of Service: January 17, 2025
Patient was seen and examined at bedside this morning. He is attempting to establish care with a [facility] prescriber in anticipation of hospital discharge.
Objective Data
-
Vital Signs:
Vital Signs
Temp Pulse Resp BP Pulse Ox
98.3 F 97 20 107/56 98
01/17/25 11:00 01/17/25 11:00 01/17/25 11:00 01/17/25 11:00 01/17/25 11:00
I&O
01/16/25 01/17/25 01/18/25
06:59 06:59 06:59
Intake Total 216 / 216 3522 / 3522 603 / 603
Output Total 1350 / 1350 1650 / 1650
Balance -1134 / -1134 1872 / 1872 603 / 603
Review of Systems
-
History Source: Patient
All other systems: Reviewed and negative
Physical Exam
-
General: No Apparent Distress
[2025-01-17] MEDS: DESENEX/MITRAZOL/ZEASORB 1 APPLIC TOPICAL (20:40)
[2025-01-17] MEDS: MELATONIN 10 MG PO (22:04)
[2025-01-17] MEDS: SUBUTEX 4 MG SL (22:05)
[2025-01-18] MEDS: TYLENOL 1000 MG PO ×4 (00:53→23:16)
[2025-01-18] MEDS: HEPARIN 5000 UNITS SC ×4 (00:53→23:15)
[2025-01-18] MEDS: NAFCIL 108 MG IV ×6 (02:17→22:05)
[2025-01-18 03:29] VITALS: BP 122/79
[2025-01-18 05:03] VITALS: BMI 23.6
[2025-01-18 07:44] VITALS: BP 102/57
[2025-01-18] MEDS: SUBUTEX 16 MG SL (09:06)
[2025-01-18] MEDS: VANCOCIN 530 MG IV (09:06)
[2025-01-18] MEDS: LOW STRENGTH ASPIRIN 81 MG PO (09:07)
[2025-01-18] MEDS: CATAPRES PO (09:07)
[2025-01-18] MEDS: ALDACTONE 25 MG PO ×2 (09:08→19:59)
[2025-01-18] MEDS: THERAGRAN 1 TABLET PO (09:08)
[2025-01-18] MEDS: MAGNESIUM OXIDE 400 MG PO (09:08)
[2025-01-18] MEDS: COREG 25 MG PO ×2 (09:08→19:59)
[2025-01-18] MEDS: VITAMIN B1 100 MG PO (09:08)
[2025-01-18] MEDS: LASIX 40 MG PO (09:08)
[2025-01-18] MEDS: DESENEX/MITRAZOL/ZEASORB TOPICAL (09:09)
--- NOTE | 2025-01-18 09:39 | PHA.VAN.FU ---
Vancomycin Assessment / Plan
- Assessment
Renal Function: No New Labs Today
In the past 24 hrs, patient has been: Afebrile
Concomitant Antimicrobials: nafcillin
- Dosing Plan
Continue: Vanc 1500mg Q24H
- Monitoring Plan
Level(s) appropriate: Recheck trough at minimum of weekly intervals, Repeat sooner for changes in renal function or clinical status
Next Level Due (Date): ~01/22 (course to complete 01/23 - may consider holding off further levels)
- Follow Up
Pharmacy will continue to follow.
Vancomycin Follow UP
- -
Patient Age: 39
Patient Sex: Male
Vancomycin Day #: 47
Indication: Bacteremia
Requesting Provider: Dr. Fofana / [facility]
Pertinent Antimicrobial Allergies:
NKDA
Height / Weight:
Height 6 ft 2 in
Actual Weight 83.461 kg
IBW in k.2
Pertinent Past Medical History: IV JOCELIN
- Vital Signs / Lab Results
Temp Pulse Resp BP Pulse Ox
98.0 F 100 16 102/57 100
01/18/25 07:44 01/18/25 09:07 01/18/25 07:44 01/18/25 09:07 01/18/25 07:44
Therapeutic Drug Monitoring
Vancomycin Peak 28.8 ug/ml (18-26) H 01/07/25 09:33
Vancomycin Trough 11.0 ug/ml (5-20) 01/15/25 07:27
Random Vancomycin 13.9 ug/ml 12/21/24 03:53
--- NOTE | 2025-01-18 11:36 | W.PN.HOSP.TC ---
Today's Communication/Plan
-
Assessment / Plan
Assessment / Plan
General: No Apparent Distress, Comfortable and Conversant
HEENT: NormoCephalic, Moist mucous membranes, Atraumatic, poor dentition
Respiratory: Clear and Non Labored Respirations
Cardiac: S1/S2 and Regular Rhythm; No Rub or Gallop
GI: Soft, Non Tender, Non Distended and Normal Bowel Sounds
Musculoskeletal: No Edema, no deformity
: NO Balderas
Neuro: Awake, Alert, Nonfocal/grossly intact
Psych: Calm and Intact Judgment/Insight
Impression:
Patient is a 39-year-old male with a medical history of polysubstance abuse (skin popping with fentanyl) who was admitted after presentation with altered mental status. He was brought in by his parents with tremors and confusion. His mental status
abruptly declined and he was intubated for airway protection. CT brain showed possible left occipital lobe mass. His blood cultures are positive for MRSA. He was initially being managed in the ICU for treatment of encephalopathy and bacteremia.
Patient extubated and downgraded to general medical floors.
CT surgery recommending dental extraction while in the hospital and consider valve replacement during this admission.
status post 15 tooth extraction 01/04, follow-up CT surgeon recommendation regarding valve replacement.
Hemoglobin dropped again, now status post 2 more units of blood transfusion.
Repeat echocardiogram shows
1. Normal left ventricular size, wall thickness and systolic function. No regional wall motion abnormalities are seen.
2. Ejection fraction is 60-65% by visual assesment.
3. Trace mitral valve regurgitation. Mobile echodensity consistent with known endocarditis seen near the mitral valve posterior leaflet annulus.
4. Moderate circumferential pericardial effusion without evidence of tamponade physiology.
5. Compared to a prior echo from December 14 2024, which was reviewed, there is now a moderate pericardial effusion, findings are otherwise similar.
6. Fair image quality.
KELI 12/29/2024: EF 65%, moderate in size partially mobile echodensity attached to the mitral valve annulus and also at the posterior leaflet of P1/P2, eccentric jet of moderate MR present around echodensity/vegetation, moderate pericardial effusion
Pericardiocentesis 01/01.
Pericardiocentesis drain removed.
Pending placement.
01/11
Echo shows:
1. Normal left ventricular size, wall thickness and systolic function. No regional wall motion abnormalities are seen. LVEF 55-60%.
2. Right ventricular size and systolic function are within normal limits.
3. Moderate mitral valve regurgitation. Mitral regurgitation jet is eccentrically directed
4. There remains a prominence at the mitral valve annulus consistent with known prior endocarditis.
5. Trivial pericardial effusion is noted.
6. Compared to a prior transthoracic echocardiogram study from 01/04/25 The mitral regurgitation may be slightly worse.
Assessment/plan:
Septic shock secondary to MRSA/MSSA bacteremia:
- Off vasopressors and downgraded to general medical floors
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
- Afebrile since 12/11, leukocytosis resolved
- Transesophageal echocardiogram 12/06 showed large mitral annulus vegetation
- ID following, continue antibiotics with vancomycin and nafcillin, repeat cultures negative since 12/13
- Continue antibiotics with vancomycin and nafcillin through 01/23/2025 (6 weeks from sterile cultures on 12/13)
- status post 15 tooth extraction 12/25, follow-up CT surgeon recommendation regarding valve replacement
- Repeat KELI 12/29 showed moderately sized partially mobile echodensity attached to the mitral valve annulus and also the posterior leaflet of P1/P2, also showed moderate pericardial effusion
- Awaiting rehab placement for ongoing antibiotic administration and physical therapy.
- Repeat echo 01/11 shows trivial pericardial effusion
- Medically stable
Pericardial effusion:
- Pericardiocentesis 01/01 with 350 cc of sanguinous output, cultures with no growth to date, drain initially left in place with very minimal output, drain was later removed 01/03
- follow up echo 01/11 shows Trivial pericardial effusion is noted.
Polysubstance abuse:
- Long history of injection drug abuse
- Now doing well with initiation of buprenorphine treatment, currently 16 mg sublingual daily and 4 mg at night which we will continue, also uses Suboxone for chronic myalgias
- Will need coordination with [facility] at time of hospital discharge
- Will need Suboxone clinic arranged prior to discharge, will need prescription for supply of Suboxone at discharge to bridge gap until clinic appointment
Anemia requiring transfusion
- Transfused 1 unit PRBCs for hemoglobin of 7.2 on 12/19, a second unit PRBCs 12/21 for hemoglobin 6.9, hemoglobin appropriately improved, remained stable around 7.5
- No evidence of active bleeding, will attempt to limit blood draws
- Hemoglobin again dropped below 7.0 on 12/27 and 12/28, he was transfused 2 additional units of PRBCs at that time with subsequent improvement in hemoglobin
- Hemoglobin dropped to 8.1 01/04 possibly due to sanguinous pericardial output, remains hemodynamically stable, hemoglobin stable at 8.4 on repeat H&H
- Currently stable, Will monitor
Chronic pain
- Continue Suboxone for generalized myalgias which he also uses for addiction therapy
Acute hypoxic respiratory failure.
Ventilation dependent respiratory failure.
12/13
Patient extubated
Acute toxic metabolic encephalopathy:
- EEG with no acute epileptiform activity captured
- Encephalopathy likely multifactorial due to bacteremia, opiate withdrawal, and and suspected septic emboli to brain
- MRI brain consistent with suspicion for septic emboli, repeat CT brain shows stable findings
- Now resolved, patient at baseline mental status, extubated 12/13
Left upper extremity DVT involving brachial vein
Given his multiple scattered acute infarctions with microhemorrhages, patient is high risk for ICH if systemic anticoagulation started
PICC line removed repeat ultrasound shows left brachial vein nonocclusive DVT.
continue subcu heparin.
Hypomagnesemia:
- Resolved, monitor
LE:
- Resolved
Hypokalemia:
- Resolved
- Monitor
Rhabdomyolysis:
- Resolved
Elevated LFTs:
- Suspect due to severe sepsis
- Resolved, monitor with treatment as above
Pancreatitis:
- Resolved
Lactic acidosis:
- Resolved, continue to monitor
CODE STATUS: Full code
DVT prophylaxis: Subcu heparin
Diet: Regular diet
Disposition: Medically stable for discharge, pending placement.
Total time spent on today's encounter was 35 minutes which included time spent in counseling the patient/family regarding diagnosis and treatment plan as listed above, goals of care, and symptom management. Case was discussed with nursing staff,
specialists, and care coordinators/case management. All labs and imaging personally reviewed by me. Remainder the time spent in detailed review of previous records, lab data, imaging, and other medical provider documentation.
Anticipated Discharge: > 48 hours
Subjective/Interval History
-
Date of Service: January 18, 2025
Patient was seen and examined at bedside this morning. He is attempting to make an appointment with outpatient physician who could prescribe Suboxone so he can be continued on after discharge.
Objective Data
-
Vital Signs:
Vital Signs
Temp Pulse Resp BP Pulse Ox
98.0 F 100 16 102/57 100
01/18/25 07:44 01/18/25 09:07 01/18/25 07:44 01/18/25 09:07 01/18/25 07:44
I&O
01/17/25 01/18/25 01/19/25
06:59 06:59 06:59
Intake Total 3522 / 3522 3698 / 3698 108 / 108
Output Total 1650 / 1650 1950 / 1950
Balance 1872 / 1872 1748 / 1748 108 / 108
Review of Systems
-
History Source: Patient
All other systems: Reviewed and negative
Physical Exam
-
General: No Apparent Distress
[2025-01-18 12:01] VITALS: BP 159/96
--- NOTE | 2025-01-18 14:49 | CM ---
Addendum entered by Nayeli Holley RN 01/18/25 16:14:
Per Phoebe, need paper script for pharmacy to provide Subutex. Patient receives at 8pm and 8am. Attending informed patient may not be able to receive tonight or tomorrow morning dose. Phoebe, asking her attending if they will be able to provide a
script for Subutex at discharge until he is seen by a provider that is able and willing to prescribe Subutex to the patient. Patient is on Subutex not suboxone.
Plan: Discharge plans will be held until tomorrow or until everything can be set for IV abx and Subutex.
Addendum entered by Nayeli Holley RN 01/18/25 15:56:
Phoebe director of hotel from [facility] received auth for patient. Patient and attending updated.
Plan: Discharge to [facility].
Call report to: [phone]
Fax report to: [phone]
Medical necessity and transport forms on chart.
Original Note:
Reviewed the chart notes and spoke with the patient and mother at the bedside. Patient requested information be faxed to [facility] to assist with suboxone physician. Medical release filled out by patient. Medical release and clinicals faxed
to ([phone]). CM continues to be available to patient/family and is monitoring medical plan for needs at discharge.
Plan: Discharge to [facility] once auth obtained.
[2025-01-18 15:28] VITALS: BP 136/87
[2025-01-18] MEDS: CATAPRES 0.3 MG PO ×2 (16:30→22:05)
[2025-01-18 19:14] VITALS: BP 147/99
[2025-01-18] MEDS: DESENEX/MITRAZOL/ZEASORB 1 APPLIC TOPICAL (20:00)
--- NOTE | 2025-01-18 20:38 | VATNOTE ---
both lumens asked to check by PCN; very sluggish flush both; flushed both lumens quite a few times and did end of retracting a blood return with some pulsating flushing; Antibiotic resumed via purple lumen. Instructed pt to let PCN know if pump
alarms anymore.
[2025-01-18] MEDS: MELATONIN 10 MG PO (22:04)
[2025-01-18] MEDS: SUBUTEX 4 MG SL (22:05)
[2025-01-18 23:30] VITALS: BP 124/78
[2025-01-19] MEDS: NAFCIL 108 MG IV ×4 (01:30→13:17)
[2025-01-19 03:03] VITALS: BP 123/72
[2025-01-19 04:59] VITALS: BMI 23.4
[2025-01-19 07:00] VITALS: BP 137/91
[2025-01-19] MEDS: VANCOCIN 530 MG IV (07:49)
[2025-01-19] MEDS: VITAMIN B1 100 MG PO (07:51)
[2025-01-19] MEDS: HEPARIN 5000 UNITS SC (07:51)
[2025-01-19] MEDS: SUBUTEX 16 MG SL (07:51)
[2025-01-19] MEDS: THERAGRAN 1 TABLET PO (07:52)
[2025-01-19] MEDS: LASIX 40 MG PO (07:52)
[2025-01-19] MEDS: TYLENOL 1000 MG PO (07:52)
[2025-01-19] MEDS: MAGNESIUM OXIDE 400 MG PO (07:52)
[2025-01-19] MEDS: LOW STRENGTH ASPIRIN 81 MG PO (07:53)
[2025-01-19] MEDS: DESENEX/MITRAZOL/ZEASORB TOPICAL (07:54)
[2025-01-19] MEDS: ALDACTONE 25 MG PO (07:57)
[2025-01-19] MEDS: CATAPRES 0.3 MG PO (07:57)
[2025-01-19] MEDS: COREG 25 MG PO (07:57)
--- NOTE | 2025-01-19 08:55 | PHA.VAN.FU ---
Vancomycin Assessment / Plan
- Assessment
Renal Function: Stable
WBC's are: WNL
In the past 24 hrs, patient has been: Afebrile
Concomitant Antimicrobials: nafcillin
- Dosing Plan
Continue: Vanc 1500mg Q24H
- Monitoring Plan
Level(s) appropriate: Recheck trough at minimum of weekly intervals, Repeat sooner for changes in renal function or clinical status
Next Level Due (Date): ~01/22 (course to complete 01/23 - may consider holding off further levels)
- Follow Up
Pharmacy will continue to follow.
Vancomycin Follow UP
- -
Patient Age: 39
Patient Sex: Male
Vancomycin Day #: 48
Indication: Bacteremia
Requesting Provider: Dr. Fofana / Teto
Pertinent Antimicrobial Allergies:
NKDA
Height / Weight:
Height 6 ft 2 in
Actual Weight 82.599 kg
IBW in k.2
Pertinent Past Medical History: IV JOCELIN
- Vital Signs / Lab Results
Temp Pulse Resp BP Pulse Ox
98.1 F 99 16 137/91 99
01/19/25 07:00 01/19/25 07:57 01/19/25 07:00 01/19/25 07:57 01/19/25 07:00
Therapeutic Drug Monitoring
Vancomycin Peak 28.8 ug/ml (18-26) H 01/07/25 09:33
Vancomycin Trough 11.0 ug/ml (5-20) 01/15/25 07:27
Random Vancomycin 13.9 ug/ml 12/21/24 03:53
--- NOTE | 2025-01-19 08:56 | CM ---
Addendum entered by Nayeli Holley RN 01/19/25 11:00:
Plan: Discharge to [facility] today.
Call report to: [phone]
Fax report to: [phone]
Medical necessity and transport forms on chart.
Original Note:
Reviewed the chart notes and spoke with Negin with [facility] ([phone]). Patient has an appointment scheduled for Wednesday, 26 January 2025 at 10am with the doctor. Patient informed to arrive 9:15am to speak with Negin. Patient's cell #
[phone], this was provided to Negin. Patient will require a temporary script for medication at discharge to hold him over until his appointment. Patient provided appointment details. CM continues to be available to patient/family and is
monitoring medical plan for needs at discharge.
Plan: IV abx through 01/23/2025 then to [facility] on 01/26/2025 for appointment with Subutex prescribing physician.
--- NOTE | 2025-01-19 09:42 | W.PN.CARDCBS ---
Today's Communication / Plan
-
Overall remains stable from cardiac standpoint. No new fevers.
Decrease clonidine to 0.3 p.o. twice daily. Continue Coreg 25 mg p.o. twice daily and spironolactone 25 mg p.o. twice daily.
Creatinine and potassium stable from January 13, 2025
Plan will be for him to get a transthoracic echo in 2 to 3 weeks and an office visit with myself 1 week later.
I again advised him to call with any new fevers or chills once he stops antibiotics.
We again discussed the importance of avoiding any IV drug use in the future.
Hemoglobin stable at 9.6.
No new pericardial fluid on last transthoracic echo.
Will sign off. Please call with questions
Impression / Plan
-
PCP: None prior to admission
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
Impression:
Presentation with change in mental status 12/03/24
Sepsis
Septic emboli by brain MRI
MSSA bacteremia
Being treated as both MSSA and MRSA due to discrepancy between blood culture PCR and phenotype
Pancreatitis
TME
VDRF
LE
Rhabdomyolysis
Elevated LFTs
Newly diagnosed hepatitis C
Thrombocytopenia
Anemia, possibly hemolytic
Pericardial effusion s/p pericardiocentesis 01/01/25
Pericardial fluid culture negative for bacterial growth, negative for yeast or fungal element growth and negative for malignant cells
IVDA since age 19
Vaping
Hypokalemia
Acute HFpEF
LUE DVT
Dental extractions, 15 teeth removed as an inpatient on 12/25/2024
ECHO 12/04/2024: EF 55 to 60%, no regional wall motion abnormalities noted, no evidence of vegetation seen
KELI 12/07/2024: EF 65%, large endocarditis/vegetations attached to mitral annulus measuring ~1x1cm each, mild MR, no Tricuspid or aortic vegetations
Echo 12/14/2024: EF 60-65%, thick echodensity of mitral annulus 1.6x20 cm, trace MR
Echo 12/27/2024: EF 60-65%, trace MR, mobile echodensity consistent with known endocarditis seen near the mitral valve posterior leaflet annulus, moderate circumferential pericardial effusion without evidence of tamponade physiology
KELI 12/29/2024: EF 65%, moderate in size partially mobile echodensity attached to the mitral valve annulus and also at the posterior leaflet of P1/P2, eccentric jet of moderate MR present around echodensity/vegetation, moderate pericardial effusion
Echo January 11, 2025, EF 60%, continued moderate echodensity at mitral valve annulus consistent with endocarditis, eccentric moderate mitral regurgitation. Trivial pericardial effusion
Plan:
-Admitted with confusion and generalized weakness, changes in urine output and back pain. Then developed VDRF in the setting of sepsis, septic shock, TME, brain lesions concerning for embolic disease and rhabdo. KELI with evidence of large
endocarditis/vegetations attached to the mitral annulus. Patient receiving IV antibiotics and awaiting acute care rehab placement. Required pericardiocentesis on 01/01/2025.
-CT surgery update note from 12/30/2024 reviewed by me and current plan is to continue with IV antibiotics. ID note reviewed by me and they are planning for ongoing treatment of MSSA and MRSA bacteremia with IV antibiotics until 01/23/2025. No plan
for surgical intervention at this time unless patient decompensates.
-KELI on 12/29/2024 and there is now moderate MR. Repeat transthoracic 01/11 revealed stable moderate mitral regurgitation with continued endocarditis around mitral valve annulus and posterior leaflet.
-Last transfusion was on 12/28/2024 for Hgb 6.7. Hemoglobin stable at 9.5.
-On 12/22/2024 the haptoglobin level was elevated at 229 and reticulocyte count elevated at 4.4. Suspect anemia is multifactorial including some element of hemolysis but also anemia of chronic disease in the setting of endocarditis.
-Patient is not on systemic anticoagulation nor OAC. There was evidence of LUE DVT and patient is not being treated with OAC due to risk of hemorrhage with septic emboli on MRI of brain earlier this admission.
-Patient had 15 dental extractions on 12/25/2024
-CM has made referrals to two dozen different acute care rehab and SNF facilities and patient has been denied by all of them for his history of IV drug abuse and for the need for IV antibiotics.
-ID is recommending 6 weeks of IV antibiotics to run through 01/23/25.
-Weight is overall stable at 182 pounds. Continue Lasix 40 mg daily. We again discussed the importance of fluid restriction.
-EF preserved at 55 to 65% by echoes this admission
- Continue Coreg and spironolactone. Will decrease clonidine to 0.3 twice daily.
Continue Suboxone per primary team
-Patient had pericardiocentesis for 400 mL of bloody fluid on 01/01/2025, microbiology reviewed by me and negative for bacterial growth on fluid cultures, negative for yeast or fungal elements and pathology was negative for malignancy.
-Repeat echo reveals no further pericardial fluid.
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
Subjective
Date of Service: January 19, 2025
Overall looks stable. Denies chest pains or shortness of breath. Weight overall stable
Objective
Labs:
01/13/25 07:51
01/15/25 04:42
Labs
Hgb 9.6 g/dL (13.0-18.0) L 01/13/25 07:51
Hct 29.2 % (39.0-52.0) L 01/13/25 07:51
Plt Count 575 10^3/uL (130-400) H 01/13/25 07:51
PT 15.1 Sec (11.4-14.6) H 12/26/24 06:08
INR 1.16 12/26/24 06:08
APTT 30.9 Sec (23.4-35.0) 12/26/24 06:08
Sodium 139 mmol/L (135-145) 01/13/25 07:51
Potassium 4.9 mmol/L (3.5-5.1) 01/13/25 07:51
BUN 15 mg/dl (9-20) 01/15/25 04:42
Creatinine 0.7 mg/dL (0.7-1.3) 01/15/25 04:42
Glucose 96 mg/dl (70-99) 01/13/25 07:51
Vital Signs and I&O:
Vital Signs
Temp Pulse Resp BP Pulse Ox
98.1 F 99 16 137/91 99
01/19/25 07:00 01/19/25 07:57 01/19/25 07:00 01/19/25 07:57 01/19/25 07:00
Vital Signs
Temp Pulse Resp BP Pulse Ox
98.1 F 99 16 137/91 99
01/19/25 07:00 01/19/25 07:57 01/19/25 07:00 01/19/25 07:57 01/19/25 07:00
Intake & Output
01/17/25 01/18/25 01/19/25 01/20/25
06:59 06:59 06:59 06:59
Intake Total 3522 / 3522 3698 / 3698 2822 / 2822
Output Total 1650 / 1650 1950 / 1950 4300 / 4300
Balance 1872 / 187 1748 / 1748 -1478 / -1478
Physical Exam
Physical Exam
GEN: No distress, awake, Ox3
HEENT: supple, anicteric, mmm
LUNGS: CTA, no wheezes/rales
CV: Reg, S1/S2, 3/6 syst LSB, no gallop
ABD: soft, BS+, NT/ND
EXT: No edema
NEURO: Gross non-focal
SKIN: No rash
[2025-01-19 11:12] VITALS: BP 101/64
--- NOTE | 2025-01-19 11:28 | W.DCSUMMARY ---
Discharge Summary
Discharge Data
Date of Admission: 12/03/24
Date of Discharge: 01/19/25
Total time spent discharging patient (in min): 57
-
Pending Results: No
Hospital Course
Ottoniel Alonzo is a 39-year-old male with a medical history of polysubstance abuse (skin popping with fentanyl) who was admitted after presentation with altered mental status. He was brought in by his parents with tremors and confusion. His mental
status abruptly declined and he was intubated for airway protection. CT brain showed possible left occipital lobe mass. His blood cultures were positive for MRSA. He was initially managed in the ICU for treatment of encephalopathy and bacteremia.
He was started on IV vancomycin.
Further brain evaluation with MRI showed numerous scattered acute infarctions suggestive of embolic phenomenon with multiple small microhemorrhages. This raised suspicion for septic emboli considering his injection drug use. EEG showed no acute
epileptiform activity. His mental status improved with antibiotic treatment. He was able to be extubated on 12/13. He initially had a left upper extremity PICC line however this was removed after he developed a left brachial vein DVT. He was
unable to be treated with anticoagulation due to his high risk for intracranial hemorrhage considering multiple abnormalities on brain MRI. Another PICC line was placed in his right upper extremity which remains in place.
Transesophageal echocardiogram showed a large mitral annulus vegetation. His antibiotic regimen consisted of vancomycin and nafcillin which he will continue through 01/23/2025 (6 weeks from sterile cultures on 12/13/2024). Repeat transesophageal
echocardiogram showed persistent mitral annulus vegetation but smaller in size, also showed moderate pericardial effusion. And he went pericardiocentesis on 01/01 with 350 cc of sanguinous output. Pericardial drain was left in place with minimal
output and was later removed on 01/03. Repeat echocardiogram on 01/11 showed trivial pericardial effusion. He underwent extraction of 15 teeth on 01/04 in anticipation of potential cardiothoracic surgery. He will need to follow-up closely with
cardiothoracic surgery after completion of his antibiotic regimen for further planning as needed.
He required multiple blood transfusions of PRBCs during this admission. He received 1 unit on 12/19, a second unit on 12/21, 3rd unit on 12/27, and 4th unit on 12/28. His hemoglobin has remained stable since that time.
His HIV screen was negative. However his serologies were positive for hepatitis C infection. He will need outpatient follow-up with a assembler molded frames for treatment of his hepatitis C once he is otherwise medically stable.
He has been started on Subutex treatment for chronic myalgias and as an opiate deterrent after returning to baseline mental status. He is currently requiring 16 mg sublingual in the morning and 4 mg at night. He will need to be continued on this
regimen after discharge. This is of critical importance to his health. He is arranging outpatient follow-up with a physician who can manage his Subutex needs after discharge. He has been given information about community resources to assist him
with his chronic opioid addiction.
At time of hospital discharge he was medically stable. He will be discharged to SNF for physical therapy and ongoing IV antibiotics. He will need to follow-up closely with his primary care physician, infectious disease physician, cardiothoracic
surgeon, and a assembler molded frames.
General: No Apparent Distress, Comfortable and Conversant
HEENT: NormoCephalic, Moist mucous membranes, Atraumatic, poor dentition
Respiratory: Clear and Non Labored Respirations
Cardiac: S1/S2 and Regular Rhythm; No Rub or Gallop
GI: Soft, Non Tender, Non Distended and Normal Bowel Sounds
Musculoskeletal: No Edema, no deformity, right upper extremity PICC
: NO Balderas
Neuro: Awake, Alert, Nonfocal/grossly intact
Psych: Calm and Intact Judgment/Insight
Discharge Plan
-
Patient Disposition: [facility]SNF
Discharge Diagnosis/Procedures: Infective endocarditis
Diet: As tolerated and Regular
Activity: With assistance and As tolerated
Others Tests: follow up echocardiogram at [facility] cardiac services on 02/07/25 @4:00 PM.
Follow-up with a assembler molded frames (liver specialist) for treatment of your hepatitis C infection
Need to follow-up with infectious disease and have repeat cultures taken after completing your antibiotic course
Activity Restrictions/Additional Instructions:
Miconazole powder and zinc barrier ointment (i.e. Calazime) to coccyx/buttocks rash twice a day.
Elevate heels off bed with pillows.
Pressure redistributing chair cushion (i.e. Air chair cushion).
Ottoniel Alonzo is a 39-year-old male with a medical history of polysubstance abuse (skin popping with fentanyl) who was admitted after presentation with altered mental status. He was brought in by his parents with tremors and confusion. His mental
status abruptly declined and he was intubated for airway protection. CT brain showed possible left occipital lobe mass. His blood cultures were positive for MRSA. He was initially managed in the ICU for treatment of encephalopathy and bacteremia.
He was started on IV vancomycin.
Further brain evaluation with MRI showed numerous scattered acute infarctions suggestive of embolic phenomenon with multiple small microhemorrhages. This raised suspicion for septic emboli considering his injection drug use. EEG showed no acute
epileptiform activity. His mental status improved with antibiotic treatment. He was able to be extubated on 12/13. He initially had a left upper extremity PICC line however this was removed after he developed a left brachial vein DVT. He was
unable to be treated with anticoagulation due to his high risk for intracranial hemorrhage considering multiple abnormalities on brain MRI. Another PICC line was placed in his right upper extremity which remains in place.
Transesophageal echocardiogram showed a large mitral annulus vegetation. His antibiotic regimen consisted of vancomycin and nafcillin which he will continue through 01/23/2025 (6 weeks from sterile cultures on 12/13/2024). Repeat transesophageal
echocardiogram showed persistent mitral annulus vegetation but smaller in size, also showed moderate pericardial effusion. And he went pericardiocentesis on 01/01 with 350 cc of sanguinous output. Pericardial drain was left in place with minimal
output and was later removed on 01/03. Repeat echocardiogram on 01/11 showed trivial pericardial effusion. He underwent extraction of 15 teeth on 01/04 in anticipation of potential cardiothoracic surgery. He will need to follow-up closely with
cardiothoracic surgery after completion of his antibiotic regimen for further planning as needed.
He required multiple blood transfusions of PRBCs during this admission. He received 1 unit on 12/19, a second unit on 12/21, 3rd unit on 12/27, and 4th unit on 12/28. His hemoglobin has remained stable since that time.
His HIV screen was negative. However his serologies were positive for hepatitis C infection. He will need outpatient follow-up with a assembler molded frames for treatment of his hepatitis C once he is otherwise medically stable.
He has been started on Subutex treatment for chronic myalgias and as an opiate deterrent after returning to baseline mental status. He is currently requiring 16 mg sublingual in the morning and 4 mg at night. He will need to be continued on this
regimen after discharge. This is of critical importance to his health. He is arranging outpatient follow-up with a physician who can manage his Subutex needs after discharge. He has been given information about community resources to assist him
with his chronic opioid addiction.
At time of hospital discharge he was medically stable. He will be discharged to SNF for physical therapy and ongoing IV antibiotics. He will need to follow-up closely with his primary care physician, infectious disease physician, cardiothoracic
surgeon, and a assembler molded frames.
Referrals:
Franky Bridges MD [Active, Cardiology] - 02/20/25 11:20 am
Referral Note: You have a cardiology follow-up appointment at the [place] office. Please call with questions
Gucci Gonzalez MD [Active, Cardiac Surgery] - 02/05/25 8:30 am
Referral Note: Consultation appointment to discuss intervention of Mitral valve.
Maryellen Irene MD [Active, Infectious Diseases]
Prescriptions:
New
carvedilol 25 mg Tablet
25 mg PO BID 30 Days Qty: 60 0RF
miconazole nitrate [Miconazorb AF] 2 % Powder
1 applic topical BID Qty: 85 0RF
Rx Instructions:
1 APPLICATION TO coccyx/buttocks, affected areas
aspirin 81 mg Tablet,Chewable
81 mg PO DAILY 30 Days Qty: 30 0RF
melatonin 5 mg Tablet
10 mg PO HS 30 Days Qty: 60 0RF
buprenorphine HCl 2 mg Tablet, Sublingual
4 mg sublingual HS 30 Days Qty: 60 0RF
buprenorphine HCl 8 mg Tablet, Sublingual
16 mg sublingual DAILY@0800 30 Days Qty: 30 0RF
thiamine mononitrate (vit B1) 100 mg Tablet
100 mg PO DAILY 30 Days Qty: 30 0RF
Nafcillin [Nafcil] 2000 MG
0.9% Sodium Chloride 100 ml [Nss] 100 ML
108 mls/hr IV Q4H
through 01/23/2025
Ordered By: Vicente Michelle MD
Last Taken: 01/19/25 10:12 108 mls
Vancomycin [Vancocin] 1500 MG
0.9% Sodium Chloride 500 ml [Nss] 500 ML
353.333 mls/hr IV DAILY@0600
through 01/23/2025
Ordered By: Vicente Michelle MD
Last Taken: 01/10/25 06:16 530 mls
Protocol: None
Protocol Text:
DOSING PER PHARMACY
Please contact pharmacy with any questions.
acetaminophen 325 mg Tablet
650 mg PO Q4HPRN PRN (Reason: fever>100.3/mild pain) Qty: 0 0RF
multivitamin with folic acid [Tab-A-Clementina] 400 mcg Tablet
1 tab PO DAILY Qty: 0 0RF
spironolactone 25 mg Tablet
25 mg PO BID 30 Days Qty: 60 0RF
furosemide 40 mg Tablet
40 mg PO DAILY 30 Days Qty: 30 0RF
magnesium oxide 400 mg (241.3 mg magnesium) Tablet
400 mg PO DAILY 30 Days Qty: 30 0RF
clonidine HCl 0.3 mg Tablet
0.3 mg PO BID 30 Days Qty: 60 0RF
Continued
Fiber-Caps (psyllium husk)
500 mg PO DAILY
Discharge Orders:
Discharge Patient (As Directed); Ordered 01/19/25
Ordered By: Jose David Ross
Care Plan Goals
Care Plan Goals:
Problem: Readiness for enhanced knowledge related to diagnosis and treatment plan
Goal: Understand your diagnosis and treatment plan needs, including medications if applicable.
Instructions: Know your diagnosis, underlying causes and treatment plan options, including medications if applicable. Consult with your health care team to learn about your diagnosis and treatment plan, including medications if applicable.
Discharge Date and Time
Print Language: FIJIAN
[2025-01-19 12:13] VITALS: BP 118/73
--- NOTE | 2025-01-19 13:42 | W.PN.ID1 ---
Date of Service
Date of Service: January 19, 2025
Today's Communication
Continue IV Vancomycin 1.5g IV q24h and Nafcillin 2g IV q4h (both crosses blood-brain barrier), 6 weeks of IV antibiotics from negative blood cx, through 01/23/2025
DC to [facility] today.
Assessment / Plan
# Complicated Staphylococcus aureus (MRSA/MSSA) bacteremia
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
# Multiple embolic CVA
# New dx of hepatitis C infection: Hepatitic C Ab positive; HCV RNA 2,190,000
# LUE PICC associated DVT, PICC dc'd 12/14
# Fever and leukocytosis resolved
# s/p Intubated 12/03, extubated 12/12/24
# Polysubstance abuse (cocaine and fentanyl 'muscle-ling')
# hx MRSA wound abscesses (2010)
# hx of Viridans strep bacteremia (2010)
- 12/14 repeat TTE: 1.6 x 2 cm echodensity MV
- 12/12/24 Last positive Blood cx MRSA
- 12/13/24 forward, negtive blood cx's.
- 12/14/24 PICC D/C'ed; tip cx without growth
- HIV screen negative.
- Hepatitic C Ab positive; HCV RNA 2,190,000
- 12/25 s/p 15 tooth extractions
- 12/29 Repeat KELI MV vegetation smaller, but mitral regurgitation worse, new moderate pericardial effusion.
- 01/01 s/p pericardiocentesis, cx neg to date
- There is discrepancy between blood cx PCR (identified as MRSA) and phenotype (identified as MSSA)
Cefoxitin induced test negative. PBP2a negative.
Discussed with S. aureus experts.
Best to treat as both MRSA and MSSA since there are only few publications regarding this particular strain of S. aureus.
- Continue IV Vancomycin 1.5g IV q24h and Nafcillin 2g IV q4h (both crosses blood-brain barrier), 6 weeks of IV antibiotics from negative blood cx, through 01/23/2025
- Eventual referral to printed circuit board assembly repairer for HCV treatment.
DC to [facility] today.
Script placed in chart.
Chief Complaint
-: Bacteremia and Other (embolic CVA)
Subjective / Review of Systems
Patient accepted at [facility] to finish remaining abx's. He feels well.
Vital Signs / Physical Exam
Vital Signs
Vital Signs
Temp Pulse Resp BP Pulse Ox
97.6 F 91 16 101/64 97
01/19/25 11:12 01/19/25 11:12 01/19/25 11:12 01/19/25 11:12 01/19/25 11:12
Physical Exam
Constitutional: No Acute Distress
Eyes: Sclera Anicteric
Cardiovascular: Regular Rate and S1/S2
Pulmonary: Clear and Non Labored
Gastrointestinal: Soft and Non Distended
Extremities: Edema (BLE improving)
Neurological: AO x 3
Lines: PICC
Objective Data
Lab Data
Lab Results
01/13/25 07:51
01/15/25 04:42
PT 15.1 Sec (11.4-14.6) H 12/26/24 06:08
INR 1.16 12/26/24 06:08
APTT 30.9 Sec (23.4-35.0) 12/26/24 06:08
Estimated Creat Clear > 125 ml/min 01/15/25 04:42
Lactic Acid 1.3 mmol/L (0.7-2.0) 12/05/24 16:46
Total Bilirubin 0.8 mg/dl (0.2-1.3) 12/26/24 06:08
AST 21 U/L (17-59) 12/26/24 06:08
ALT 13 U/L (0-50) 12/26/24 06:08
Alkaline Phosphatase 103 U/L (38-126) 12/26/24 06:08
Amylase 139 U/L (30-110) H 12/05/24 04:04
Most recent labs reviewed.
Micro Results:
01/01/25 11:21 Fungal Culture - Preliminary
Pericardial Fluid Culture in progress.
Positive cultures are reported as soon as detected.
Final report to follow in four to five weeks.
01/01/25 11:21 Body Fluid Culture - Final
Pericardial Fluid No Growth After 72 Hours
Gram Stain - Final
01/01/25 11:21 Acid Fast Bacilli Smear - Preliminary
Pericardial Fluid Acid Fast Bacilli Culture - Preliminary
01/01/25 11:23 Fungal Smear - Final
Pericardial Fluid No yeast or fungal elements seen.
12/17/24 07:12 Blood Culture - Final
Blood/Venous No Growth - Final Report
12/16/24 03:40 Blood Culture - Final
Blood/Venous No Growth - Final Report
12/15/24 04:33 Blood Culture - Final
Blood/Venous No Growth - Final Report
12/14/24 16:37 Blood Culture - Final
Blood/Venous No Growth - Final Report
12/12/24 03:10 Blood Culture - Final
Blood/Venous Staph aureus MRSA
Gram Stain - Final
12/13/24 04:07 Blood Culture - Final
Blood/Venous No Growth - Final Report
12/14/24 12:53 Catheter Tip Culture - Final
Picc No Growth After 72 Hours
12/09/24 03:54 Blood Culture - Final
Blood/Venous Staph aureus MRSA
Gram Stain - Final
12/08/24 03:02 Blood Culture - Final
Blood/Venous Staph aureus MRSA
Gram Stain - Final
12/11/24 03:33 Blood Culture - Final
Blood/Venous No Growth - Final Report
12/10/24 03:14 Blood Culture - Final
Blood/Venous No Growth - Final Report
12/07/24 04:06 Blood Culture - Final
Blood/Venous Staph aureus MRSA
Gram Stain - Final
12/03/24 08:20 Blood Culture - Final
Blood/Venous Staph aureus MRSA
Gram Stain - Final
12/03/24 09:21 Blood Culture - Final
Blood/Venous Staph aureus MRSA
Gram Stain - Final
12/05/24 16:46 Blood Culture - Final
Blood/Venous Staph aureus MRSA
Gram Stain - Final
12/05/24 13:38 Blood Culture - Final
Blood/Venous Staph aureus MRSA
Gram Stain - Final
12/03/24 08:38 Urine Culture - Final
Urine S aureus-Methicillin Sensitive
12/03/24 18:44 MRSA Screen - Final
Nose No Methicillin Resistant Staphylococcus aureus isolated.
Imaging:
12/05/24 CT a/p: Mild inflammatory change adjacent to the body and tail of the pancreas, suggestive of mild pancreatitis. No peripancreatic fluid collection appreciated. No evidence of intestinal obstruction or bowel inflammatory process. Study is
slightly limited by lack of intravenous or oral contrast. Gallbladder sludge without evidence of acute cholecystitis. No radiopaque gallstones are seen.
12/04/24 MRI brain: Numerous scattered acute infarctions in a distribution that is most suggestive of embolic phenomenon in the setting of known IV drug abuse. Multiple small microhemorrhages are also demonstrated.
12/03/24 CXR: Clear lungs.
12/03/[address]: Possible cortical petechial hemorrhages in the left frontal lobe and left occipital lobe. Possible small old infarct, periventricular small vessel ischemic disease or edema due to underlying mass in the left occipital lobe.
[2025-01-19 14:34] VITALS: BP 120/77
== END 2025-01-19 15:02 | DRG 870 ==
LOC: 2 NORTH 11:30
PROVIDERS: General Practice; Internal Medicine; Internal Medicine Cardiovascular Disease; Internal Medicine Critical Care Medicine; Internal Medicine Interventional Cardiology; Nurse Practitioner; Nurse Practitioner Family; Nurse Practitioner Primary Care; Physician Assistant; Psychiatry & Neurology Neurology; ADMITTING PHYSICIAN Internal Medicine; ATTENDING PHYSICIAN Internal Medicine; CONSULT PHYSICIAN Internal Medicine Critical Care Medicine; CONSULT PHYSICIAN Internal Medicine Infectious Disease; CONSULT PHYSICIAN Physical Medicine & Rehabilitation; CONSULT PHYSICIAN Psychiatry & Neurology Neurology; EMERGENCY PHYSICIAN Emergency Medicine; OTHER PHYSICIAN Dentist Oral and Maxillofacial Surgery; OTHER PHYSICIAN Internal Medicine Cardiovascular Disease; OTHER PHYSICIAN Thoracic Surgery (Cardiothoracic Vascular Surgery); PRIMARYCARE PHYSICIAN Internal Medicine
PROC: XX20X89 Monitoring of Brain Electrical Activity, Computer-aided Detection and Notification, New Technology Group 9 (ICD-10-PCS; 2024-12-03)
PROC: 5A1955Z Respiratory Ventilation, Greater than 96 Consecutive Hours (ICD-10-PCS; 2024-12-03)
PROC: 0BH17EZ Insertion of Endotracheal Airway into Trachea, Via Natural or Artificial Opening (ICD-10-PCS; 2024-12-03)
PROC: 02HV33Z Insertion of Infusion Device into Superior Vena Cava, Percutaneous Approach (ICD-10-PCS; 2024-12-03)
PROC: 03HY32Z Insertion of Monitoring Device into Upper Artery, Percutaneous Approach (ICD-10-PCS; 2024-12-05)
PROC: B24BZZ4 Ultrasonography of Heart with Aorta, Transesophageal (ICD-10-PCS; 2024-12-06)
PROC: 30233N1 Transfusion of Nonautologous Red Blood Cells into Peripheral Vein, Percutaneous Approach (ICD-10-PCS; 2024-12-19)
PROC: 0CDXXZ1 Extraction of Lower Tooth, Multiple, External Approach (ICD-10-PCS; 2024-12-25)
PROC: 0CDWXZ1 Extraction of Upper Tooth, Multiple, External Approach (ICD-10-PCS; 2024-12-25)
PROC: 0W9D30Z Drainage of Pericardial Cavity with Drainage Device, Percutaneous Approach (ICD-10-PCS; 2025-01-01)
DX: A41.02 Sepsis due to Methicillin resistant Staphylococcus aureus (principal); G92.8 Other toxic encephalopathy; I33.0 Acute and subacute infective endocarditis; I61.8 Other nontraumatic intracerebral hemorrhage; K85.90 Acute pancreatitis without necrosis or infection, unspecified; I50.31 Acute diastolic (congestive) heart failure; R65.21 Severe sepsis with septic shock; J96.01 Acute respiratory failure with hypoxia; I63.49 Cerebral infarction due to embolism of other cerebral artery; F19.239 Other psychoactive substance dependence with withdrawal, unspecified; F11.23 Opioid dependence with withdrawal; M62.82 Rhabdomyolysis; E87.20 Acidosis, unspecified; N17.9 Acute kidney failure, unspecified; I76 Septic arterial embolism; I31.39 Other pericardial effusion (noninflammatory); I82.622 Acute embolism and thrombosis of deep veins of left upper extremity; D58.9 Hereditary hemolytic anemia, unspecified; T82.868A Thrombosis due to vascular prosthetic devices, implants and grafts, initial encounter; E87.0 Hyperosmolality and hypernatremia; A41.01 Sepsis due to Methicillin susceptible Staphylococcus aureus; R94.31 Abnormal electrocardiogram [ECG] [EKG]; E87.6 Hypokalemia; K02.9 Dental caries, unspecified; K01.1 Impacted teeth; G89.29 Other chronic pain; E83.42 Hypomagnesemia; Y82.8 Other medical devices associated with adverse incidents; I11.0 Hypertensive heart disease with heart failure; R79.89 Other specified abnormal findings of blood chemistry; R60.0 Localized edema; R82.90 Unspecified abnormal findings in urine; R31.29 Other microscopic hematuria; F17.290 Nicotine dependence, other tobacco product, uncomplicated; Z86.14 Personal history of Methicillin resistant Staphylococcus aureus infection
CPT/HCPCS: 33016; 36600; 70355; 70450; 70551; 71045; 74018; 74176; 80048; 80053; 80143; 80202; 80306; 80307; 81003; 81015; 82150; 82248; 82550; 82565; 82805; 82945; 82962; 83010; 83036; 83605; 83615; 83690; 83735; 83880; 84100; 84132; 84157; 84439; 84443; 84478; 84520; 85014; 85018; 85025; 85027; 85045; 85379; 85610; 85730; 86803; 86850; 86900; 86901; 86920; 87015; 87040; 87070; 87084; 87086; 87102; 87116; 87147; 87150; 87154; 87186; 87205; 87206; 87389; 87522; 88112; 88305; 89051; 92523; 92526; 92610; 92612; 93005; 93306; 93308; 93312; 93320; 93321; 93325; 93971; 94002; 94003; 95705; 95708; 95813; 95816; 96365; 96366; 96367; 96375; 97110; 97116; 97163; 97530; 97535; 99285; C1769; C1894; J2250; P9016

== ENCOUNTER 2025-01-19 22:10 | Observation (INO) | payer OTHER, SELFPAY ==
[2025-01-19 17:11] VITALS: BP 156/117
--- NOTE | 2025-01-19 20:13 | ED.GENMED ---
History of Present Illness
General
Chief Complaint: Vascular Access Problem
Source: patient and family
Time Seen by Provider: 01/19/25 19:41
History of Present Illness
History of Present Illness:
Note:
CHIEF COMPLAINT(S)
Missed medication doses post-discharge from a healthcare facility.
HISTORY OF PRESENT ILLNESS
The patient is a 39-year-old male with a history of an intravenous therapy regimen consisting of Nafcillin. He reports his last dose of Nafcillin was administered at 1:00 PM, prior to discharge from the hospital at 2:30 PM. The patient missed
subsequent doses scheduled for 4:00 PM and 8:00 PM. He expressed dissatisfaction with the conditions at the rehabilitation facility, citing understaffing and cleanliness issues, and was not administered any of his medications, including Carvedilol.
The patient confirmed a six-week antibiotic course, with only four days remaining. He was recently hospitalized for over five weeks, likely related to this regimen. He reports feeling well currently. Additionally, he receives Tobramycin at specified
time intervals. The patient noted removal of a previously infected PICC line and indicated willingness for IV access via his left arm.
PHYSICAL EXAM
General: Alert, no acute distress.
Skin: Warm, dry.
Head: Normocephalic, atraumatic.
Neck: Supple, trachea midline.
Eyes, Ears, Nose, Mouth, and Throat: Oral mucosa moist. Poor dentition observed.
Cardiovascular: Normal peripheral perfusion, no edema.
Respiratory: Respirations are non-labored.
Gastrointestinal: Abdomen nondistended.
Back: Normal range of motion, normal alignment.
Musculoskeletal: Normal ROM, normal strength.
Neurological: Alert and oriented to person, place, time, and situation, no focal neurological deficit observed.
Psychiatric: Cooperative, appropriate mood & affect.
Vascular: PICC line noted in the right upper extremity without surrounding redness or drainage. Normal perfusion of extremities.
PLAN
1. Initiate administration of Nafcillin to compensate for missed doses.
2. Order up all required medications including antibiotics and assess the situation with the current healthcare facility regarding medication availability.
3. Review external records and binder caser notes for further insight into the patients treatment plan.
DIFFERENTIAL DIAGNOSIS
The Differential Diagnosis includes, in no particular order and is not limited to:
1. Non-compliance with medication regimen
2. Medication error
3. Systemic infection (due to history of a previously infected PICC line)
4. Medication-related complications
5. Underlying chronic condition exacerbation
6. Hospital-acquired infection
7. Catheter-associated complications
8. Adverse drug reactions
9. Operational deficiencies in transitional care setting
10. Psycho-social stress impacting treatment adherence
Disposition:
SUMMARY OF ENCOUNTER
The patient is a 39-year-old male with a history of recent prolonged hospitalization for endocarditis, during which he was intubated. He presented to the emergency department due to missing doses of IV antibiotics, which were unavailable at the
[facility] care facility. The case was discussed with the hospitalist in consultation, and it was agreed that the patient should be admitted to avoid missing any further dosages and for continued IV antibiotic therapy. The patient is currently stable
with no new symptoms.
DISPOSITION
Admit
ASSESSMENT
The primary issue appears to be the missed IV antibiotic doses, which could lead to the exacerbation of endocarditis.
EMERGENCY TREATMENTS ADMINISTERED
None mentioned
MANAGEMENT OF THE PATIENTS CARE WAS DISCUSSED WITH
Hospitalist in consultation
PLAN
Admit the patient for continued administration of IV antibiotics to ensure completion of the regimen and mitigate risk of exacerbating endocarditis.
MEDICAL DECISION MAKING
- Complexity of Data Reviewed:
Chronic conditions affecting care include endocarditis and the recent intubation during hospitalization. Differential Diagnosis includes non-compliance with medication regimen, medication error, systemic infection, medication-related complications,
underlying chronic condition exacerbation, hospital-acquired infection, catheter-associated complications, adverse drug reactions, operational deficiencies in transitional care setting, and psycho-social stress impacting treatment adherence.
- Data:
Category 1:
Review included the patients discharge summary, revealing his recent hospitalization details and current issues with antibiotic therapy.
Category 3:
The case was discussed with a hospitalist, emphasizing the importance of ensuring uninterrupted IV antibiotic therapy.
- Risk:
Due to the patients condition and the need for consistent antibiotic therapy, it was determined that admission for continued management was appropriate to prevent complications from missed doses.
DIAGNOSIS
Primary diagnosis includes endocarditis (ICD-10: I33.0). Possible risk of exacerbation due to missed antibiotic doses.
Past History
Past History
ED Past Medical History: None
ED Past Surgical History: None
Social History
Tobacco: Smoker
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
Personal: Single
Living: with family
Employment: Employed
Family History
Family History: Other (Noncontributory)
Phy Exam
Physical Exam
Physical Exam:
.
Course
Orders/Labs/Results
Orders:
Orders
01/19/25 20:29
Nafcillin [Nafcil] 2,000 mg 0.9% Sodium Chloride 100 ml [Nss] 100 ml IV NOW
01/19/25 20:54
Chest [CR Chest - 2 Views ] Urgent
Comment:
Reason For Exam: PICC line placement
01/19/25 21:39
Comprehensive Metabolic Panel Urgent
01/19/25 21:41
Admit/Transfer Patient As Directed
Co-Sign Provider:
Level of Care: Observation services
Assign to:: Medical/Surgical
Physician / Group: bessy quigley
Diagnosis: MRSA bacteremia/endocarditis needing iv abx
Code Status As Directed
Resuscitation Status: Full Code
01/19/25 21:50
PRN Pain Medication Management As Directed
May give lesser potent ordered pain med per pt: Yes
preference::
Protocol:: Medication orders for pain may be administered in a
manner that supports deferring to patient preference
when the pt is:
- Requesting an ordered lesser potent pain medication.
Least to most potent pain medications are defined
as: acetaminophen < NSAID < tramadol < opioids
(morphine, oxycodone, hydromorphone).
- Requesting a lesser dose of the same medication IF
ORDERED.
- Requesting a less intrusive route of administration
if both routes are prescribed by the provider (PO <
IV).
01/19/25 21:57
Complete Blood Count/With Diff Urgent
01/19/25 22:00
Buprenorphine [Subutex] 4 mg SL HS
Carvedilol [Coreg] 25 mg PO BID
Clonidine [Catapres] 0.3 mg PO BID
Melatonin 10 mg PO HS
Spironolactone [Aldactone] 25 mg PO BID
01/19/25 22:58
Acetaminophen [Tylenol] 650 mg PO Q4HPRN PRN fever>100.3/mild pain
01/20/25 00:22
Activity As Directed
Activity Level: As Tolerated
Intake/ Output As Directed
Frequency: Per unit guidelines
Vital Signs As Directed
Frequency: Per unit guidelines
Weight As Directed
Frequency: Daily
Pt Eval And Treat Routine
Activity Level: As Tolerated
DX Deep Vein Thrombosis Video Routine
01/20/25 02:00
Nafcillin [Nafcil] 2,000 mg 0.9% Sodium Chloride 100 ml [Nss] 100 ml IV Q4H
01/20/25 06:00
Complete Blood Count/With Diff IN AM
Comprehensive Metabolic Panel IN AM
Vancomycin [Vancocin] 1,500 mg 0.9% Sodium Chloride 500 ml [Nss] 500 ml IV DAILY@06
01/20/25 08:00
Aspirin Chewable [Low Strength Aspirin] 81 mg PO DAILY
Buprenorphine [Subutex] 16 mg SL DAILY@0800
Furosemide [Lasix] 40 mg PO DAILY
Heparin 5,000 units SC Q12
Magnesium Oxide 400 mg PO DAILY
Miconazole Nitrate [Desenex/Mitrazol/Zeasorb] 1 applic TOPICAL BID
Multivitamin [Theragran] 1 tablet PO DAILY
Thiamine HCl [Vitamin B1] 100 mg PO DAILY
01/20/25 Dinner
Regular
At Your Request: Full Participation
Does patient need a safe tray?: No
01/21/25 06:00
Complete Blood Count/With Diff IN AM
Comprehensive Metabolic Panel IN AM
01/22/25 06:00
Complete Blood Count/With Diff IN AM
Comprehensive Metabolic Panel IN AM
Abnormal Lab Results
01/19/25
21:57
RBC 3.21 L 10^6/uL
(4.70-6.10)
Hgb 9.7 L g/dL
(13.0-18.0)
Hct 28.7 L %
(39.0-52.0)
RDW 16.5 H %
(11.5-14.5)
Abs Immat Gran (auto) 0.1 H 10^3/uL
(0-0.05)
Absolute Monos (auto) 1.2 H 10^3/uL
(0.1-0.6)
Immature Gran % 0.9 H %
(0-0.5)
Monocytes % 15.5 H %
(1.7-9.3)
01/19/25 21:57
01/19/25 21:39
Vital Signs
Initial and Last Documented VS:
Initial Vital Signs
Temp Pulse Resp BP Pulse Ox
98.0 F 110 20 156/117 99
01/19/25 17:11 01/19/25 17:11 01/19/25 17:11 01/19/25 17:11 01/19/25 17:11
Last Documented Vital Signs
Temp Pulse Resp BP Pulse Ox
97.4 F 100 16 146/93 99
01/20/25 00:40 01/20/25 00:45 01/20/25 00:40 01/20/25 00:45 01/20/25 00:40
*Pulse Oximetry
SaO2: 99
Oxygen Mode of Delivery: Room air
Patient hypoxic: no
*Critical Care Note
Total Time (30-74mins, 75-104mins- exclusive of procedures): Not Applicable
ED Attending Note
-
Portions of this chart may have been created with voice recognition software.� Occasional wrong word or��sound alike� substitutions may have occurred due to the inherent limitations of voice recognition software.
Discharge Plan
Departure
Patient Disposition: Admit
Date of Disposition: 01/19/25
Time of Disposition: 20:16
Admit to: Med/Surg
Presentation/result/management discussed w/ accepting MD/DO: Hospitalist
Discharge Problem:
Endocarditis
Interventions
Interventions:
*Risk Screen - Suicide Last Done: 01/19/25 17:11
*General Assessment Last Done: 01/19/25 17:11
*ED COVID-19 Vaccine History Last Done: 01/20/25 00:47
*Nursing Disposition Last Done: 01/20/25 00:21
Discharge Date and Time
Discharge Date/Time: 01/20/25 00:22
[2025-01-19 20:33] VITALS: BP 141/98
--- NOTE | 2025-01-19 20:53 | W.PN.UPDATE ---
Update Note
Progress Note Update
This note serves as an addendum to the H&P by outdoor fitness trainer RIGOBERTO�
Sharon Samson
HPI
39M D'd today to SNF at [facility] s/p admission ( 12/03/24 - 01/19/25) for complicated hospital course with Staphylococcus aureus (MRSA/MSSA) bacteremia due to infective MV endocarditis with large vegetation, mltiple embolic CVA.
He was DC'd on IV Vancomycin 1.5g IV q24h and Nafcillin 2g IV q4h (both crosses blood-brain barrier), 6 weeks from negative BCx through 01/23/2025.
Per ER attd, [facility] did not have
Relevant VS
Temp Pulse Resp BP Pulse Ox
98.0 F 110 20 141/98 99
01/19/25 17:11 01/19/25 17:11 01/19/25 17:11 01/19/25 20:33 01/19/25 20:14
PE
Gen: Comfortable and Conversant
HEENT: Moist mucous membranes, Atraumatic, poor dentition
Neck: supple
Lungs: CTA
Cor: RRR S1 S2 Loud SM at LUSB
Abdomen:� Soft, Non Tender, Non Distended
RESTAURANT SERVER: [id number]
MS: no edema
Psych: Calm and Intact Judgment/Insight
Relevant Micro data�per ID attd from progress note
- 12/14 repeat TTE: 1.6 x 2 cm echodensity MV
- 12/12/24 Last positive BCx MRSA
- 12/13/24 forward, negtive BCxs
- 12/14/24 PICC D/C'ed; tip cx without growth
NEG HIV screen
Hepatitic C Ab positive; HCV RNA 2,190,000
- 12/25 s/p 15 tooth extractions
- 12/29 Repeat KELI MV vegetation smaller, but mitral regurgitation worse, new moderate pericardial effusion.
- 01/01 s/p pericardiocentesis, cx neg to date
Last hospitalist admission: admission ( 12/03/24 - 01/19/25)
ASSESSMENT & PLAN
Missed q4 Hr nafcillin dosing at [facility] - last dose was at 1317 H - per NF , naificillin is not available
Complicated Staphylococcus aureus (MRSA/MSSA) bacteremia
MV infective endocarditis with large vegetation
Multiple embolic CVA
Resolved Fever and leukocytosis
New Dx of hepatitis C infection: Hepatitic C Ab positive; HCV RNA 2,190,000
HX VDRF - Intubated 12/03, extubated 12/12/24
HX Polysubstance abuse (cocaine and fentanyl 'muscle-ling')
HX MRSA wound abscesses (2010)
HX Viridans strep bacteremia (2010)
- c/w IV Vancomycin 1.5g IV q24h plus IV Nafcillin 2g IV q4h through 01/23/2025 x 6 weeks of IV ABx from NEG BCx
- CRM consult for dC plan again over week end
DVT Px: SQH
Code: Full
OBS MS
--- NOTE | 2025-01-19 21:52 | HPS.HSE ---
Family Physician
-
Family Physician: * NONE
Chief Complaint
-
Unable to receive IV nafcillin at [facility]
History of Present Illness
39-year-old male who was DC'd earlier today to [facility] rehab to receive 6 weeks of IV nafcillin and vancomycin for MRSA/MSSA mitral valve infective endocarditis with large vegetation. He reports last infusion of the nafcillin was at 115 here at
[place] he was due again every 4 hours. He was admitted from 12/03/2024 to 01/19/2025 for Hypoxic respiratory failure requiring intubation 12/03 extubation 12/12/24,MRSA/MSSA mitral valve infective endocarditis with large vegetation, Multiple septic
embolic CVA, New diagnosis hepatitis C infection, Pericardial effusion requiring pericardiocentesis on 01/01 350 cc, polysubstance abuse/IVDA Fentanyl/Tranq since age 21,Chronic peripheral edema secondary to IV drug use, anemia requiring
transfusion,Left upper extremity DVT from PICC line which was DC'd,Hypomagnesemia, Rhabdomyolysis, Pancreatitis, Insomnia. A new right upper extremity PICC line established to continue ongoing IV vancomycin and nafcillin through 01/23/2025. I spoke
with [facility] who states they do not have patient's nafcillin in stock they will not be receiving this medication until 4 in the morning on 01/20/2025 and are unsure how much quantity they will have. The patient became concerned had his mother
pick him up and bring him to the hospital to receive his treatment. I advised nursing staff on second floor at [facility] to notify the ground products director Suzette [phone] of the incident not having patient's IV antibiotics which was the sole
purpose of his admission there. The patient denies headache, fever, chills, chest pain, palpitations, cough, shortness of breath, abdominal pain, nausea, vomiting, diarrhea, urinary symptoms.
Medical History
Past Medical History
Past Medical History: Reports Other
Additional Past Medical History:
12/03/2024 to 01/19/2025 for MRSA/MSSA mitral valve infective endocarditis with large vegetation
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
New diagnosis hepatitis C infection November 2024
Pericardial effusion status post pericardiocentesis 01/01 350 cc sanguinous fluid
Hypoxic respiratory failure requiring intubation 12/03 extubation 12/12/24
IVDA Fentanyl/Tranq since age 21
Polysubstance abuse
Chronic peripheral edema secondary to IV drug use
Left upper extremity DVT brachial vein post PICC line
Hypomagnesemia
Rhabdomyolysis
Pancreatitis
Insomnia
Past Surgical History: Reports Other
Additional Past Surgical History:
Right upper extremity PICC
Prior left upper extremity PICC line DC'd due to clot
Left inguinal hernia repair
General Surgery fracture 2010
Social History
Tobacco: Vaping
Alcohol: None
Drug: IVDA (Fentanyl, trank)
Personal: Single
Living: With Family
Employment: Not Employed
Family History
Family History: Not pertinent
Allergies / Home Medications
Allergies reflects when Allergies were last updated in [facility].
Home Medications with original date entered in [facility]
Allergy/Medication List:
Allergies
Allergy/AdvReac Type Severity Reaction Status Date / Time
No Known Drug Allergies Allergy Unknown Verified 12/03/24 11:44
Home Medications
Fiber-Caps (psyllium husk) 500 mg PO DAILY Supplement 12/03/24
Nafcillin [Nafcil] 2,000 mg 108 mls/hr IV Q4H 01/08/25
Vancomycin [Vancocin] 1,500 mg 353.333 mls/hr IV DAILY@0600 01/08/25
acetaminophen 325 mg tablet 650 mg (2 x 325 mg) PO Q4HPRN PRN fever>100.3/mild pain #0 tabs 01/08/25
aspirin 81 mg chewable tablet 81 mg PO DAILY 30 days #30 tabs 01/08/25
buprenorphine HCl 2 mg sublingual tablet 4 mg (2 x 2 mg) sublingual HS 30 days #60 tabs 01/08/25
buprenorphine HCl 8 mg sublingual tablet 16 mg (2 x 8 mg) sublingual DAILY@0800 30 days #30 tabs 01/08/25
carvedilol 25 mg tablet 25 mg PO BID 30 days #60 tabs 01/08/25
melatonin 5 mg tablet 10 mg (2 x 5 mg) PO HS 30 days #60 tabs 01/08/25
miconazole nitrate 2 % topical powder (Miconazorb AF) 1 applic topical BID #85 grams 01/08/25
multivitamin with folic acid 400 mcg tablet (Tab-A-Clementina) 1 tab PO DAILY #0 tabs 01/08/25
thiamine mononitrate (vit B1) 100 mg tablet 100 mg PO DAILY 30 days #30 tabs 01/08/25
clonidine HCl 0.3 mg tablet 0.3 mg PO BID 30 days #60 tabs 01/19/25
furosemide 40 mg tablet 40 mg PO DAILY 30 days #30 tabs 01/19/25
magnesium oxide 400 mg (241.3 mg magnesium) tablet 400 mg PO DAILY 30 days #30 tabs 01/19/25
spironolactone 25 mg tablet 25 mg PO BID 30 days #60 tabs 01/19/25
Review of Systems
-
History Source: Patient and Family (Mother at bedside)
A 12 point ROS was completed and negative except as noted: Yes
Constitutional: Denies Fever, Fatigue or Chills
EENT: Denies Sore Throat or Runny Nose
Respiratory: Denies Cough or Trouble Breathing
Cardiac: Denies Chest Pain, Palpitations or Syncope
Abdomen/GI: Denies Abdominal Pain, Nausea, Vomiting or Diarrhea
: Denies Dysuria, Frequency, Flank Pain, Incontinence or Difficulty Voiding
Musculoskeletal: Reports Edema (Chronic bilateral +2 lower legs with chronic scarring/pitting due to drug use); Denies Joint Pain
Skin: Reports Other (PICC line right upper extremity); Denies Itching or Rash
Neurological: Denies Dizzy or Headache
Endocrine: Reports No Symptoms
Hematologic/Lymphatic: Reports No Symptoms
Psych: Reports Calm
Physical Exam
Vital Signs
Vital Signs
Temp Pulse Resp BP Pulse Ox
98.0 F 110 20 141/98 99
01/19/25 17:11 01/19/25 17:11 01/19/25 17:11 01/19/25 20:33 01/19/25 20:14
Physical Exam
General: Comfortable and Conversant; No Pain, Fever or Chills
HEENT: NormoCephalic, Anicteric, Moist mucous membranes, Atraumatic, PERRLA, [place] Conjunctivae, No Ptosis and Other (Widespread dental decay)
Respiratory: Clear; No Wheezes, Rales or Rhonchi
Cardiac: S1/S2, Regular Rhythm and Peripheral Edema (Chronic bilateral +2 lower legs with chronic scarring/pitting due to drug use); No Murmur, Rub or Gallop
Breast: Deferred by me
GI: Soft, Non Tender, Non Distended, Normal Bowel Sounds and No Hepatosplenomegaly
Rectal: Deferred by Provider
Genito-urinary: Deferred by me
Musculoskeletal: No Clubbing, No Cyanosis and Other (Chronic bilateral +2 lower legs with chronic scarring/pitting due to drug use); No Edema, Left Upper Extremity or Edema, Right Upper Extremity
Skin: Warm, Dry and IV/Catheter Site (PICC line right upper extremity); No Rash
Neuro: AO x 3, No Motor Deficits, Cranial Nerves Intact and No Sensory Deficits; No Slurred Speech, Facial Droop, Tremors or Sedated
Psych: Calm
Impression/Plan
-
Impression/plan:
Observation MedSurg
# Mitral valve infective endocarditis with large vegetation secondary to IVDA longstanding IV fentanyl/tranq use requiring IV antibiotics
#Recent Septic shock secondary to MRSA/MSSA bacteremia
# Hx MRSA wound abscesses (2010)
# Hx of Viridans strep bacteremia (2010)
Patient from [facility] half-way where he missed 1 dose of nafcillin at 5 PM as the facility does not have the medication on site and we will not likely have until 4 AM they were unable to quantify how many doses the patient will have due to a
holiday weekend
Continue antibiotics with vancomycin and nafcillin through 01/23/2025 (6 weeks from sterile cultures on 12/13) via PICC right upper extremity
- Patient was being followed by ID repeat cultures negative since 723
KELI 12/06 showed large mitral annulus vegetation
Repeat KELI 12/29 showed moderately sized partially mobile echodensity attached to the mitral valve annulus and also the posterior leaflet of P1/P2,
also showed moderate pericardial effusion
- Status post 15 tooth extraction 12/25, follow-up CT surgeon recommendation regarding valve replacement
#Pericardial effusion hx
- Pericardiocentesis 01/01 with 350 cc of sanguinous output, cultures with no growth to date, drain initially left in place with very minimal output, drain was later removed 01/03
- follow up echo 01/11 shows Trivial pericardial effusion is noted.
#Polysubstance abuse
#Chronic pain
- Long history of IVDA heroin, fentanyl, tranq since age 21
-Continue Buprenorphine 16 mg at 8 AM and 4 mg at bedtime
- Continue Suboxone for generalized myalgias which he also uses for addiction therapy
- Continue clonidine 0.3 mg p.o. twice daily
Patient has appointment 01/27/2020 5:[address] [facility] [phone] for intake to start his Suboxone therapy
-will need prescription for supply of Suboxone at discharge to bridge gap until clinic appointment
#Recent anemia requiring transfusion
Transfused 1 unit PRBCs for hemoglobin of 7.2 on 12/19, a second unit PRBCs 12/21 for hemoglobin 6.9, hemoglobin appropriately improved, remained stable around 7.5
*Hemoglobin again dropped below 7.0 on 12/27 and 12/28, he was transfused 2 additional units of PRBCs at that time with subsequent improvement in hemoglobin
-Hgb 9.7 which is stable from hemoglobin 9.6 on 01/13/2025
- Will repeat CBC
#Chronic peripheral edema
-Continue furosemide 40 mg daily
#Recent acute hypoxic respiratory failure resolved
Ventilation dependent respiratory failure.
-Intubated 12/03 extubated 12/12/2024
#Hx toxic metabolic encephalopathy resolved post extubation 12/13
- EEG with no acute epileptiform activity captured
- Encephalopathy likely multifactorial due to bacteremia, opiate withdrawal, and and suspected septic emboli to brain
- MRI brain consistent with suspicion for septic emboli, repeat CT brain shows stable findings
# Recent multiple embolic CVA septic emboli November 2022 on MRI
#Left upper extremity DVT involving brachial vein
Given his multiple scattered acute infarctions with microhemorrhages, patient is high risk for ICH if systemic anticoagulation started
Left PICC line removed repeat ultrasound shows left brachial vein nonocclusive DVT.
-continue subcu heparin
#Hypomagnesemia
- Resolved, monitor
- Continue Mag-Ox 400 milligrams daily
#Recent rhabdomyolysis
- Resolved
# New dx of hepatitis C infection recent visit: Hepatitic C Ab positive; HCV RNA 2,190,000
- Follow-up outpatient with GI
- Suspect due to severe sepsis
- Resolved, monitor with treatment as above
#Insomnia
Continue melatonin 10 mg at bedtime
Other PMH:
November 2024 admission below diagnoses
1.LE recent�resolved-Creat 0.7 GFR> 60
2. Recent hypokalemia resolved- K4.6
3. Pancreatitis - Resolved
4. Lactic acidosis: - Resolved
DVT prophylaxis
Subcu heparin
Full code
[2025-01-19] MEDS: NAFCIL 108 MG IV (21:58)
[2025-01-19 22:05] VITALS: BP 128/89
[2025-01-19 22:06] LABS: Hematocrit 28.7 % (39.0-52.0); Hemoglobin 9.7 g/dL (13.0-18.0); Mean Corp Hgb Conc. 33.8 g/dL (33.0-37.0); Mean Corpuscular Volume 89.4 fL (80.0-94.0); Nucleated Red Blood Cells % 0 % (-); Platelet Count 398 10^3/uL (130-400); Red Cell Dist. Width 16.5 % (11.5-14.5)
[2025-01-19 22:09] LABS: ALT (SGPT) 17 U/L (0-50); AST (SGOT) 33 U/L (17-59); Albumin 3.8 g/dl (3.5-5.0); Alkaline Phosphatase 63 U/L (38-126); Blood Urea Nitrogen 11 mg/dl (9-20); Calcium 9.8 mg/dl (8.4-10.2); Carbon Dioxide 26 mmol/L (22-30); Chloride 106 mmol/L (98-107); Glucose 95 mg/dl (70-99); Potassium 4.6 mmol/L (3.5-5.1); Sodium 138 mmol/L (135-145); Total Protein 8.2 g/dl (6.3-8.2); eGFR > 60.00
[2025-01-19] MEDS: CATAPRES 0.3 MG PO ×2 (22:55)
[2025-01-19] MEDS: MELATONIN 10 MG PO (22:55)
[2025-01-19] MEDS: SUBUTEX 4 MG SL (22:56)
--- NOTE | 2025-01-19 23:19 | VATNOTE ---
called to ED to assess right picc. Ongoing issues with difficult/tight flushes of both lumens; was able to obtain labs tonight using 3 ml syringe via both lumens. Unable to clear some blood from inside lumen of white catheter despite multiple
flushes.
[2025-01-19] MEDS: TYLENOL 650 MG PO (23:57)
[2025-01-20] MEDS: COREG PO (00:30)
[2025-01-20 00:40] VITALS: BP 146/93
[2025-01-20 00:42] VITALS: BMI 22.5
[2025-01-20] MEDS: ALDACTONE 25 MG PO ×3 (00:45→20:16)
[2025-01-20] MEDS: NAFCIL 108 MG IV ×6 (02:05→22:13)
[2025-01-20 06:00] VITALS: BMI 22.5
[2025-01-20] MEDS: VANCOCIN 530 MG IV (06:46)
[2025-01-20 07:25] VITALS: BP 144/93
[2025-01-20] MEDS: MAGNESIUM OXIDE 400 MG PO (08:34)
[2025-01-20] MEDS: SUBUTEX 16 MG SL (08:34)
[2025-01-20] MEDS: THERAGRAN 1 TABLET PO (08:35)
[2025-01-20] MEDS: COREG 25 MG PO ×2 (08:35→20:17)
[2025-01-20] MEDS: VITAMIN B1 100 MG PO (08:36)
[2025-01-20] MEDS: LASIX 40 MG PO (08:36)
[2025-01-20] MEDS: LOW STRENGTH ASPIRIN 81 MG PO (08:36)
[2025-01-20] MEDS: HEPARIN 5000 UNITS SC ×2 (08:36→20:17)
[2025-01-20] MEDS: DESENEX/MITRAZOL/ZEASORB 1 APPLIC TOPICAL ×2 (08:37→20:17)
[2025-01-20] MEDS: TYLENOL 650 MG PO ×3 (08:45→23:58)
--- NOTE | 2025-01-20 09:08 | PHA.VAN.FU ---
Vancomycin Assessment / Plan
- Assessment
Renal Function: Stable
WBC's are: Stable
In the past 24 hrs, patient has been: Afebrile
Concomitant Antimicrobials: NAFCILLIN
- Dosing Plan
Continue: VANCO 1500MG Q24H
- Monitoring Plan
Level(s) appropriate: Recheck trough at minimum of weekly intervals, Repeat sooner for changes in renal function or clinical status
Next Level Due (Date): ~01/22 (COURSE TO COMPLETE 01/23 - MAY CONSIDER HOLDING OFF FUTHER LEVELS)
- Follow Up
Pharmacy will continue to follow.
Vancomycin Follow UP
- -
Patient Age: 39
Patient Sex: Male
Vancomycin Day #: 49
Indication: Endocarditis
Requesting Provider: DR. DUNN
Height / Weight:
Height 6 ft 3 in
Actual Weight 81.76 kg
Pertinent Past Medical History: IVDU
- Vital Signs / Lab Results
Temp Pulse Resp BP Pulse Ox
98.1 F 96 16 144/93 100
01/20/25 07:25 01/20/25 07:25 01/20/25 07:25 01/20/25 07:25 01/20/25 07:25
Lab Results - Hematology
01/19/25 01/19/25
21:39 21:57
WBC Cancelled 7.6
Lab Results - Chemistry
01/19/25
21:39
BUN 11
Creatinine 0.7
Albumin 3.8
[2025-01-20 09:49] LABS: Hematocrit 28.5 % (39.0-52.0); Hemoglobin 9.5 g/dL (13.0-18.0); Mean Corp Hgb Conc. 33.3 g/dL (33.0-37.0); Mean Corpuscular Volume 91.3 fL (80.0-94.0); Nucleated Red Blood Cells % 0 % (-); Platelet Count 401 10^3/uL (130-400); Red Cell Dist. Width 16.3 % (11.5-14.5)
[2025-01-20 10:15] LABS: ALT (SGPT) 16 U/L (0-50); AST (SGOT) 23 U/L (17-59); Albumin 3.4 g/dl (3.5-5.0); Alkaline Phosphatase 63 U/L (38-126); Blood Urea Nitrogen 9 mg/dl (9-20); Calcium 9.6 mg/dl (8.4-10.2); Carbon Dioxide 30 mmol/L (22-30); Chloride 104 mmol/L (98-107); Estimated Creatinine Clearance > 125 ml/min; Glucose 94 mg/dl (70-99); Potassium 4.6 mmol/L (3.5-5.1); Sodium 138 mmol/L (135-145); Total Protein 7.5 g/dl (6.3-8.2); eGFR > 60.00
--- NOTE | 2025-01-20 10:45 | W.PN.HOSP.TC ---
Today's Communication/Plan
-
Assessment / Plan
Assessment / Plan
Assessment / Plan
General: No Apparent Distress, Comfortable and Conversant
HEENT: NormoCephalic, Moist mucous membranes, Atraumatic, poor dentition
Respiratory: Clear and Non Labored Respirations
Cardiac: S1/S2 and Regular Rhythm; No Rub or Gallop
GI: Soft, Non Tender, Non Distended and Normal Bowel Sounds
Musculoskeletal: No Edema, no deformity
: NO Balderas
Neuro: Awake, Alert, Nonfocal/grossly intact
Psych: Calm and Intact Judgment/Insight
Ottoniel Alonzo is a 39-year-old male with a medical history of polysubstance abuse (skin popping with fentanyl) who was admitted after presentation with altered mental status. He was brought in by his parents with tremors and confusion. His mental
status abruptly declined and he was intubated for airway protection. CT brain showed possible left occipital lobe mass. His blood cultures were positive for MRSA. He was initially managed in the ICU for treatment of encephalopathy and bacteremia.
He was started on IV vancomycin.
Assessment/plan:
Septic shock secondary to MRSA/MSSA bacteremia:
- Off vasopressors and downgraded to general medical floors
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
- Afebrile since 12/11, leukocytosis resolved
- Transesophageal echocardiogram 12/06 showed large mitral annulus vegetation
- ID following, continue antibiotics with vancomycin and nafcillin, repeat cultures negative since 12/13
- Continue antibiotics with vancomycin and nafcillin through 01/23/2025 (6 weeks from sterile cultures on 12/13)
- status post 15 tooth extraction 12/25, follow-up CT surgeon recommendation regarding valve replacement
- Repeat KELI 12/29 showed moderately sized partially mobile echodensity attached to the mitral valve annulus and also the posterior leaflet of P1/P2, also showed moderate pericardial effusion
- Awaiting rehab placement for ongoing antibiotic administration and physical therapy.
- Repeat echo 01/11 shows trivial pericardial effusion
- Medically stable
- He was discharged to [facility] on 01/19 to complete his course of IV antibiotics. 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
until they were able to obtain these medications. This is not a reasonable choice medically considering the seriousness of his condition and potential for treatment failure if he were to miss prescribed doses of these critical medications. Case
management had been coordinating with the facility to be sure these medications were available prior to discharge and we were assured that they would be available at the facility when the patient arrived. They were not available. Thus, the patient
had no choice but to return to the hospital to continue his treatment for infective endocarditis.
Pericardial effusion:
- Pericardiocentesis 01/01 with 350 cc of sanguinous output, cultures with no growth to date, drain initially left in place with very minimal output, drain was later removed 01/03
- follow up echo 01/11 shows Trivial pericardial effusion is noted.
Polysubstance abuse:
- Long history of injection drug abuse
- Now doing well with initiation of buprenorphine treatment, currently 16 mg sublingual daily and 4 mg at night which we will continue, also uses Suboxone for chronic myalgias
- Will need coordination with [facility] at time of hospital discharge
- Will need Suboxone clinic arranged prior to discharge, will need prescription for supply of Suboxone at discharge to bridge gap until clinic appointment
Anemia requiring transfusion
- Transfused 1 unit PRBCs for hemoglobin of 7.2 on 12/19, a second unit PRBCs 12/21 for hemoglobin 6.9, hemoglobin appropriately improved, remained stable around 7.5
- No evidence of active bleeding, will attempt to limit blood draws
- Hemoglobin again dropped below 7.0 on 12/27 and 12/28, he was transfused 2 additional units of PRBCs at that time with subsequent improvement in hemoglobin
- Hemoglobin dropped to 8.1 01/04 possibly due to sanguinous pericardial output, remains hemodynamically stable, hemoglobin stable at 8.4 on repeat H&H
- Currently stable, Will monitor
Chronic pain
- Continue Suboxone for generalized myalgias which he also uses for addiction therapy
Acute hypoxic respiratory failure.
Ventilation dependent respiratory failure.
12/13
Patient extubated
Acute toxic metabolic encephalopathy:
- EEG with no acute epileptiform activity captured
- Encephalopathy likely multifactorial due to bacteremia, opiate withdrawal, and and suspected septic emboli to brain
- MRI brain consistent with suspicion for septic emboli, repeat CT brain shows stable findings
- Now resolved, patient at baseline mental status, extubated 12/13
Left upper extremity DVT involving brachial vein
Given his multiple scattered acute infarctions with microhemorrhages, patient is high risk for ICH if systemic anticoagulation started
PICC line removed repeat ultrasound shows left brachial vein nonocclusive DVT.
continue subcu heparin.
Hypomagnesemia:
- Resolved, monitor
LE:
- Resolved
Hypokalemia:
- Resolved
- Monitor
Rhabdomyolysis:
- Resolved
Elevated LFTs:
- Suspect due to severe sepsis
- Resolved, monitor with treatment as above
Pancreatitis:
- Resolved
Lactic acidosis:
- Resolved, continue to monitor
CODE STATUS: Full code
DVT prophylaxis: Subcu heparin
Diet: Regular diet
Total time spent on today's encounter was 43 minutes which included time spent in counseling the patient/family regarding diagnosis and treatment plan as listed above, goals of care, and symptom management.
Anticipated Discharge: > 48 hours
Subjective/Interval History
-
Date of Service: January 20, 2025
Patient was seen and examined at bedside this morning. Return to ED soon after discharge to SNF yesterday because the facility does not have the medications necessary to treat him for infective endocarditis.
Objective Data
-
Labs:
Laboratory Results
01/20/25
08:46
WBC 6.0
Hgb 9.5 L
Hct 28.5 L
Plt Count 401 H
Sodium 138
Potassium 4.6
Chloride 104
Carbon Dioxide 30
BUN 9
Creatinine 0.7
Glucose 94
Calcium 9.6
Total Bilirubin 0.7
AST 23
ALT 16
Alkaline Phosphatase 63
Vital Signs:
Vital Signs
Temp Pulse Resp BP Pulse Ox
98.1 F 96 16 144/93 100
01/20/25 07:25 01/20/25 07:25 01/20/25 07:25 01/20/25 07:25 01/20/25 07:25
I&O
01/19/25 01/20/25 01/21/25
06:59 06:59 06:59
Intake Total 1196 / 1196
Balance 1196 / 1196
Review of Systems
-
History Source: Patient
All other systems: Reviewed and negative
Physical Exam
-
General: No Apparent Distress
[2025-01-20 15:24] VITALS: BP 145/77
--- NOTE | 2025-01-20 16:21 | CM ---
CM met with pt and mother bedside
Pt was dc from [facility] day prior and admitted to [facility] for IV abx under one-time contract with [facility]
Pt presented to ED a few hours after dc as SNF would not have abx available and pt would miss multiple doses until delivery
Pt typically resides with his mother and father in a 2SH, indep at baseline
Discussion with attending and plan for pt to complete abx at [facility] (end date 01/23)
Pt already has appt scheduled with Sal on 01/26 for suboxone
He plans for maintain sobriety by working with [facility] and Sal
Mother is supportive and pt will not have access to his vehicle for a number months and will be under their supervision
Emotional support provided
Pt is OBS- OBS form verbally reviewed
Discharge Disposition- home with Sal and REJI
[2025-01-20] MEDS: CATAPRES 0.3 MG PO (20:16)
[2025-01-20 20:26] VITALS: BP 152/100
[2025-01-20] MEDS: SUBUTEX 4 MG SL (22:13)
[2025-01-20] MEDS: MELATONIN 10 MG PO (22:14)
[2025-01-20 23:35] VITALS: BP 119/69
[2025-01-21] MEDS: NAFCIL 108 MG IV ×6 (02:01→22:26)
[2025-01-21 06:00] VITALS: BMI 22.2
[2025-01-21] MEDS: VANCOCIN 530 MG IV (06:30)
[2025-01-21 07:28] VITALS: BP 134/89
[2025-01-21] MEDS: ALDACTONE 25 MG PO ×2 (08:34→20:40)
[2025-01-21] MEDS: LASIX 40 MG PO (08:34)
[2025-01-21] MEDS: COREG 25 MG PO ×2 (08:34→20:40)
[2025-01-21] MEDS: LOW STRENGTH ASPIRIN 81 MG PO (08:34)
[2025-01-21] MEDS: SUBUTEX 16 MG SL (08:34)
[2025-01-21] MEDS: MAGNESIUM OXIDE 400 MG PO (08:34)
[2025-01-21] MEDS: TYLENOL 650 MG PO (08:34)
[2025-01-21] MEDS: THERAGRAN 1 TABLET PO (08:34)
[2025-01-21] MEDS: HEPARIN 5000 UNITS SC ×2 (08:35→20:41)
[2025-01-21] MEDS: DESENEX/MITRAZOL/ZEASORB 1 APPLIC TOPICAL ×2 (08:35→20:41)
[2025-01-21] MEDS: VITAMIN B1 100 MG PO (08:35)
[2025-01-21] MEDS: CATAPRES 0.3 MG PO ×2 (08:35→20:40)
[2025-01-21 08:45] LABS: Hematocrit 27.3 % (39.0-52.0); Hemoglobin 9.2 g/dL (13.0-18.0); Mean Corp Hgb Conc. 33.7 g/dL (33.0-37.0); Mean Corpuscular Volume 91.0 fL (80.0-94.0); Nucleated Red Blood Cells % 0 % (-); Platelet Count 365 10^3/uL (130-400); Red Cell Dist. Width 16.3 % (11.5-14.5)
[2025-01-21 08:56] LABS: ALT (SGPT) 15 U/L (0-50); AST (SGOT) 20 U/L (17-59); Albumin 3.4 g/dl (3.5-5.0); Alkaline Phosphatase 85 U/L (38-126); Blood Urea Nitrogen 13 mg/dl (9-20); Calcium 8.7 mg/dl (8.4-10.2); Carbon Dioxide 29 mmol/L (22-30); Chloride 103 mmol/L (98-107); Estimated Creatinine Clearance > 125 ml/min; Glucose 98 mg/dl (70-99); Potassium 4.4 mmol/L (3.5-5.1); Sodium 137 mmol/L (135-145); Total Protein 7.3 g/dl (6.3-8.2); eGFR > 60.00
--- NOTE | 2025-01-21 09:22 | PHA.VAN.FU ---
Vancomycin Assessment / Plan
- Assessment
Renal Function: Stable
WBC's are: WNL
In the past 24 hrs, patient has been: Afebrile
Concomitant Antimicrobials: NAFCILLIN
- Dosing Plan
Continue: VANCO 1500MG DAILY
- Monitoring Plan
Level(s) appropriate: Recheck trough at minimum of weekly intervals, Repeat sooner for changes in renal function or clinical status
Next Level Due (Date): ~01/22 (COURSE TO COMPLETE 01/23 - MAY CONSIDER HOLDING OFF FUTHER LEVELS)
- Follow Up
Pharmacy will continue to follow.
Vancomycin Follow UP
- -
Patient Age: 39
Patient Sex: Male
Vancomycin Day #: 50
Indication: Endocarditis
Requesting Provider: DR. DUNN
Height / Weight:
Height 6 ft 3 in
Actual Weight 80.541 kg
Pertinent Past Medical History: IVDU
- Vital Signs / Lab Results
Temp Pulse Resp BP Pulse Ox
98.6 F 109 16 134/89 99
01/21/25 07:28 01/21/25 07:28 01/21/25 07:28 01/21/25 07:28 01/21/25 07:28
Lab Results - Hematology
01/19/25 01/19/25 01/20/25
21:39 21:57 08:46
WBC Cancelled 7.6 6.0
01/21/25
07:47
WBC 8.3
Lab Results - Chemistry
01/19/25 01/20/25 01/21/25
21:39 08:46 07:47
BUN 11 9 13
Creatinine 0.7 0.7 0.8
Estimated Creat Clear > 125 > 125
Albumin 3.8 3.4 L 3.4 L
--- NOTE | 2025-01-21 12:50 | W.PN.HOSP.TC ---
Today's Communication/Plan
-
Assessment / Plan
Assessment / Plan
Assessment / Plan
General: No Apparent Distress, Comfortable and Conversant
HEENT: NormoCephalic, Moist mucous membranes, Atraumatic, poor dentition
Respiratory: Clear and Non Labored Respirations
Cardiac: S1/S2 and Regular Rhythm; No Rub or Gallop
GI: Soft, Non Tender, Non Distended and Normal Bowel Sounds
Musculoskeletal: No Edema, no deformity
: NO Balderas
Neuro: Awake, Alert, Nonfocal/grossly intact
Psych: Calm and Intact Judgment/Insight
Ottoniel Alonzo is a 39-year-old male with a medical history of polysubstance abuse (skin popping with fentanyl) who was admitted after presentation with altered mental status. He was brought in by his parents with tremors and confusion. His mental
status abruptly declined and he was intubated for airway protection. CT brain showed possible left occipital lobe mass. His blood cultures were positive for MRSA. He was initially managed in the ICU for treatment of encephalopathy and bacteremia.
He was started on IV vancomycin.
Assessment/plan:
Septic shock secondary to MRSA/MSSA bacteremia:
- Off vasopressors and downgraded to general medical floors
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
- Afebrile since 12/11, leukocytosis resolved
- Transesophageal echocardiogram 12/06 showed large mitral annulus vegetation
- ID following, continue antibiotics with vancomycin and nafcillin, repeat cultures negative since 12/13
- Continue antibiotics with vancomycin and nafcillin through 01/23/2025 (6 weeks from sterile cultures on 12/13, last dose is nafcillin at 18:00 on 01/23)
- status post 15 tooth extraction 12/25, follow-up CT surgeon recommendation regarding valve replacement
- Repeat KELI 12/29 showed moderately sized partially mobile echodensity attached to the mitral valve annulus and also the posterior leaflet of P1/P2, also showed moderate pericardial effusion
- Awaiting rehab placement for ongoing antibiotic administration and physical therapy.
- Repeat echo 01/11 shows trivial pericardial effusion
- Medically stable
- He was discharged to [facility] on 01/19 to complete his course of IV antibiotics. 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
until they were able to obtain these medications. This is not a reasonable choice medically considering the seriousness of his condition and potential for treatment failure if he were to miss prescribed doses of these critical medications. Case
management had been coordinating with the facility to be sure these medications were available prior to discharge and we were assured that they would be available at the facility when the patient arrived. They were not available. Thus, the patient
had no choice but to return to the hospital to continue his treatment for infective endocarditis.
- Can be discharged home after last dose of antibiotics on 01/23
Pericardial effusion:
- Pericardiocentesis 01/01 with 350 cc of sanguinous output, cultures with no growth to date, drain initially left in place with very minimal output, drain was later removed 01/03
- follow up echo 01/11 shows Trivial pericardial effusion is noted.
Polysubstance abuse:
- Long history of injection drug abuse
- Now doing well with initiation of buprenorphine treatment, currently 16 mg sublingual daily and 4 mg at night which we will continue, also uses Suboxone for chronic myalgias
- Will need coordination with [facility] at time of hospital discharge
- Subutex clinic appointment has been arranged for Wednesday morning at 10:00 with Sal, a prescription for Subutex has been sent to his pharmacy to bridge gap until clinic appointment
Anemia requiring transfusion
- Transfused 1 unit PRBCs for hemoglobin of 7.2 on 12/19, a second unit PRBCs 12/21 for hemoglobin 6.9, hemoglobin appropriately improved, remained stable around 7.5
- No evidence of active bleeding, will attempt to limit blood draws
- Hemoglobin again dropped below 7.0 on 12/27 and 12/28, he was transfused 2 additional units of PRBCs at that time with subsequent improvement in hemoglobin
- Hemoglobin dropped to 8.1 01/04 possibly due to sanguinous pericardial output, remains hemodynamically stable, hemoglobin stable at 9.2 on repeat H&H
Chronic pain
- Continue Subutex for generalized myalgias which he also uses for addiction therapy
Acute hypoxic respiratory failure.
Ventilation dependent respiratory failure.
12/13
Patient extubated
Acute toxic metabolic encephalopathy:
- EEG with no acute epileptiform activity captured
- Encephalopathy likely multifactorial due to bacteremia, opiate withdrawal, and and suspected septic emboli to brain
- MRI brain consistent with suspicion for septic emboli, repeat CT brain shows stable findings
- Now resolved, patient at baseline mental status, extubated 12/13
Left upper extremity DVT involving brachial vein
Given his multiple scattered acute infarctions with microhemorrhages, patient is high risk for ICH if systemic anticoagulation started
PICC line removed repeat ultrasound shows left brachial vein nonocclusive DVT.
continue subcu heparin.
Hypomagnesemia:
- Resolved, monitor
LE:
- Resolved
Hypokalemia:
- Resolved
- Monitor
Rhabdomyolysis:
- Resolved
Elevated LFTs:
- Suspect due to severe sepsis
- Resolved, monitor with treatment as above
Pancreatitis:
- Resolved
Lactic acidosis:
- Resolved, continue to monitor
CODE STATUS: Full code
DVT prophylaxis: Subcu heparin
Diet: Regular diet
Total time spent on today's encounter was 58 minutes which included time spent in counseling the patient/family regarding diagnosis and treatment plan as listed above, goals of care, and symptom management.
Anticipated Discharge: > 48 hours
Subjective/Interval History
-
Date of Service: January 21, 2025
Patient was seen and examined at bedside this morning. Continuing IV antibiotics for endocarditis.
Objective Data
-
Labs:
Laboratory Results
01/21/25
07:47
WBC 8.3
Hgb 9.2 L
Hct 27.3 L
Plt Count 365
Sodium 137
Potassium 4.4
Chloride 103
Carbon Dioxide 29
BUN 13
Creatinine 0.8
Glucose 98
Calcium 8.7
Total Bilirubin 0.7
AST 20
ALT 15
Alkaline Phosphatase 85
Vital Signs:
Vital Signs
Temp Pulse Resp BP Pulse Ox
98.6 F 109 16 134/89 99
01/21/25 07:28 01/21/25 07:28 01/21/25 07:28 01/21/25 07:28 01/21/25 07:28
I&O
01/20/25 01/21/25 01/22/25
06:59 06:59 06:59
Intake Total 1196 / 1196 1660 / 1660
Output Total 1385 / 1385
Balance 1196 / 1196 275 / 275
Review of Systems
-
History Source: Patient
All other systems: Reviewed and negative
Physical Exam
-
General: No Apparent Distress
[2025-01-21 16:01] VITALS: BP 122/73
[2025-01-21] MEDS: TYLENOL 1000 MG PO (16:42)
[2025-01-21] MEDS: SUBUTEX 4 MG SL (22:26)
[2025-01-21] MEDS: MELATONIN 10 MG PO (22:27)
[2025-01-21 23:20] VITALS: BP 104/59
[2025-01-22] MEDS: TYLENOL 1000 MG PO ×3 (00:50→17:06)
[2025-01-22] MEDS: NAFCIL 108 MG IV ×6 (02:28→20:53)
[2025-01-22 04:44] LABS: Hematocrit 25.4 % (39.0-52.0); Hemoglobin 8.7 g/dL (13.0-18.0); Mean Corp Hgb Conc. 34.3 g/dL (33.0-37.0); Mean Corpuscular Volume 92.0 fL (80.0-94.0); Nucleated Red Blood Cells % 0 % (-); Platelet Count 332 10^3/uL (130-400); Red Cell Dist. Width 16.1 % (11.5-14.5)
[2025-01-22 05:09] LABS: ALT (SGPT) 14 U/L (0-50); AST (SGOT) 19 U/L (17-59); Albumin 3.2 g/dl (3.5-5.0); Alkaline Phosphatase 69 U/L (38-126); Blood Urea Nitrogen 12 mg/dl (9-20); Calcium 8.7 mg/dl (8.4-10.2); Carbon Dioxide 30 mmol/L (22-30); Chloride 104 mmol/L (98-107); Estimated Creatinine Clearance > 125 ml/min; Glucose 101 mg/dl (70-99); Potassium 4.4 mmol/L (3.5-5.1); Sodium 138 mmol/L (135-145); Total Protein 7.0 g/dl (6.3-8.2); eGFR > 60.00
[2025-01-22] MEDS: VANCOCIN 530 MG IV (05:34)
[2025-01-22 06:00] VITALS: BMI 22.4
[2025-01-22 07:14] VITALS: BP 137/88
[2025-01-22] MEDS: MAGNESIUM OXIDE 400 MG PO (09:10)
[2025-01-22] MEDS: HEPARIN 5000 UNITS SC ×2 (09:11→20:53)
[2025-01-22] MEDS: LOW STRENGTH ASPIRIN 81 MG PO (09:12)
[2025-01-22] MEDS: CATAPRES 0.3 MG PO ×2 (09:12→20:54)
[2025-01-22] MEDS: SUBUTEX 16 MG SL (09:12)
[2025-01-22] MEDS: LASIX 40 MG PO (09:13)
[2025-01-22] MEDS: ALDACTONE 25 MG PO ×2 (09:13→20:54)
[2025-01-22] MEDS: COREG 25 MG PO ×2 (09:13→20:54)
[2025-01-22] MEDS: THERAGRAN 1 TABLET PO (09:13)
[2025-01-22] MEDS: VITAMIN B1 100 MG PO (09:14)
[2025-01-22] MEDS: DESENEX/MITRAZOL/ZEASORB TOPICAL ×2 (09:14→21:03)
--- NOTE | 2025-01-22 12:18 | W.PN.HOSP.TC ---
Today's Communication/Plan
-
Discharge tomorrow Tuesday 01/23 after 6:00 PM antibiotic dose.
Assessment / Plan
Assessment / Plan
Impression:
Ottoniel Alonzo is a 39-year-old male with a medical history of polysubstance abuse (skin popping with fentanyl) who was admitted after presentation with altered mental status. He was brought in by his parents with tremors and confusion. His mental
status abruptly declined and he was intubated for airway protection. CT brain showed possible left occipital lobe mass. His blood cultures were positive for MRSA. He was initially managed in the ICU for treatment of encephalopathy and bacteremia.
He was started on IV vancomycin.
Discharged to rehab for IV antibiotic but was not able to get antibiotic the day of discharge and readmitted again to the hospital
Assessment/plan:
Septic shock secondary to MRSA/MSSA bacteremia:
- Off vasopressors and downgraded to general medical floors
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
- Afebrile since 12/11, leukocytosis resolved
- Transesophageal echocardiogram 12/06 showed large mitral annulus vegetation
- ID following, continue antibiotics with vancomycin and nafcillin, repeat cultures negative since 12/13
- Continue antibiotics with vancomycin and nafcillin through 01/23/2025 (6 weeks from sterile cultures on 12/13, last dose is nafcillin at 18:00 on 01/23)
- status post 15 tooth extraction 12/25, follow-up CT surgeon recommendation regarding valve replacement
- Repeat KELI 12/29 showed moderately sized partially mobile echodensity attached to the mitral valve annulus and also the posterior leaflet of P1/P2, also showed moderate pericardial effusion
- Awaiting rehab placement for ongoing antibiotic administration and physical therapy.
- Repeat echo 01/11 shows trivial pericardial effusion
- Medically stable
- He was discharged to [facility] on 01/19 to complete his course of IV antibiotics. 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
until they were able to obtain these medications. This is not a reasonable choice medically considering the seriousness of his condition and potential for treatment failure if he were to miss prescribed doses of these critical medications. Case
management had been coordinating with the facility to be sure these medications were available prior to discharge and we were assured that they would be available at the facility when the patient arrived. They were not available. Thus, the patient
had no choice but to return to the hospital to continue his treatment for infective endocarditis.
- Can be discharged home after last dose of antibiotics on 01/23
Pericardial effusion:
- Pericardiocentesis 01/01 with 350 cc of sanguinous output, cultures with no growth to date, drain initially left in place with very minimal output, drain was later removed 01/03
- follow up echo 01/11 shows Trivial pericardial effusion is noted.
Polysubstance abuse:
- Long history of injection drug abuse
- Now doing well with initiation of buprenorphine treatment, currently 16 mg sublingual daily and 4 mg at night which we will continue, also uses Suboxone for chronic myalgias
- Will need coordination with [facility] at time of hospital discharge
- Subutex clinic appointment has been arranged for Wednesday morning at 10:00 with Sal, a prescription for Subutex has been sent to his pharmacy to bridge gap until clinic appointment
Anemia requiring transfusion
- Transfused 1 unit PRBCs for hemoglobin of 7.2 on 12/19, a second unit PRBCs 12/21 for hemoglobin 6.9, hemoglobin appropriately improved, remained stable around 7.5
- No evidence of active bleeding, will attempt to limit blood draws
- Hemoglobin again dropped below 7.0 on 12/27 and 12/28, he was transfused 2 additional units of PRBCs at that time with subsequent improvement in hemoglobin
- Hemoglobin dropped to 8.1 01/04 possibly due to sanguinous pericardial output, remains hemodynamically stable, hemoglobin stable at 9.2 on repeat H&H
Chronic pain
- Continue Subutex for generalized myalgias which he also uses for addiction therapy
Acute hypoxic respiratory failure.
Ventilation dependent respiratory failure.
12/13
Patient extubated
Acute toxic metabolic encephalopathy:
- EEG with no acute epileptiform activity captured
- Encephalopathy likely multifactorial due to bacteremia, opiate withdrawal, and and suspected septic emboli to brain
- MRI brain consistent with suspicion for septic emboli, repeat CT brain shows stable findings
- Now resolved, patient at baseline mental status, extubated 12/13
Left upper extremity DVT involving brachial vein
Given his multiple scattered acute infarctions with microhemorrhages, patient is high risk for ICH if systemic anticoagulation started
PICC line removed repeat ultrasound shows left brachial vein nonocclusive DVT.
continue subcu heparin.
Hypomagnesemia:
- Resolved, monitor
LE:
- Resolved
Hypokalemia:
- Resolved
- Monitor
Rhabdomyolysis:
- Resolved
Elevated LFTs:
- Suspect due to severe sepsis
- Resolved, monitor with treatment as above
Pancreatitis:
- Resolved
Lactic acidosis:
- Resolved, continue to monitor
CODE STATUS: Full code
DVT prophylaxis: Subcu heparin
Diet: Regular diet
Disposition: Discharge tomorrow
Total time spent on today's encounter was 58 minutes which included time spent in counseling the patient/family regarding diagnosis and treatment plan as listed above, goals of care, and symptom management.
Anticipated Discharge: Within 24 hours
Subjective/Interval History
-
Date of Service: January 22, 2025
Patient seen and examined at bedside, denies any chest pain or shortness of breath, no abdominal pain, no nausea, no vomiting, no diarrhea or constipation.
Objective Data
-
Labs:
Laboratory Results
01/22/25
04:28
WBC 8.2
Hgb 8.7 L
Hct 25.4 L
Plt Count 332
Sodium 138
Potassium 4.4
Chloride 104
Carbon Dioxide 30
BUN 12
Creatinine 0.8
Glucose 101 H
Calcium 8.7
Total Bilirubin 0.7
AST 19
ALT 14
Alkaline Phosphatase 69
Vital Signs:
Vital Signs
Temp Pulse Resp BP Pulse Ox
98.2 F 110 18 137/88 100
01/22/25 07:14 01/22/25 09:12 01/22/25 07:14 01/22/25 09:12 01/22/25 07:14
I&O
01/21/25 01/22/25 01/23/25
06:59 06:59 06:59
Intake Total 1660 / 1660 1800 / 1800 100 / 100
Output Total 1385 / 1385 1000 / 1000 700 / 700
Balance 275 / 275 800 / 800 -600 / -600
Physical Exam
-
General: Well Developed
HEENT: Normocephalic and Atraumatic
Respiratory: Rales, Rhonchi and Crackles
Cardiac: Regular Rhythm and S1/S2
Breast: Deferred by me
GI: Soft, Nontender, Nondistended and Normal Bowel Sounds
Genito-urinary: No Costovertebral Tender
Musculoskeletal: No Clubbing, No Cyanosis and No Edema
Skin: Warm
Neuro: Awake and Alert
Psych: Calm
Data Reviewed
-
Diagnostic Radiology: Image personally visualized and interpreted and Report Reviewed by me
CT Scan: Image personally visualized and interpreted and Report Reviewed by me
Ultrasound: Image personally visualized and interpreted and Report Reviewed by me
MRI: Image personally visualized and interpreted and Report Reviewed by me
Medical Tests (Nuc Med, Echo etc): Image personally visualized and interpreted and Report Reviewed by me
Labs: Labs Reviewed by me
Old Records: Reviewed
--- NOTE | 2025-01-22 14:29 | PHA.VAN.FU ---
Vancomycin Assessment / Plan
- Assessment
Renal Function: Stable
WBC's are: Stable
Concomitant Antimicrobials: Nafcillin
- Dosing Plan
Continue: Vancomycin 1500mg daily- last dose 01/23 at 0600.
- Monitoring Plan
No level(s) ordered at this time: Will f/u if course continued with further levels.
- Follow Up
Pharmacy will continue to follow.
Vancomycin Follow UP
- -
Patient Age: 39
Patient Sex: Male
Vancomycin Day #: 51
Indication: Endocarditis
Requesting Provider: DR. DUNN
Height / Weight:
Height 6 ft 3 in
Actual Weight 81.42 kg
Pertinent Past Medical History: IVDU
- Vital Signs / Lab Results
Temp Pulse Resp BP Pulse Ox
98.2 F 110 18 137/88 100
01/22/25 07:14 01/22/25 09:12 01/22/25 07:14 01/22/25 09:12 01/22/25 13:42
Lab Results - Hematology
01/19/25 01/19/25 01/20/25
21:39 21:57 08:46
WBC Cancelled 7.6 6.0
01/21/25 01/22/25
07:47 04:28
WBC 8.3 8.2
Lab Results - Chemistry
01/19/25 01/20/25 01/21/25
21:39 08:46 07:47
BUN 11 9 13
Creatinine 0.7 0.7 0.8
Estimated Creat Clear > 125 > 125
Albumin 3.8 3.4 L 3.4 L
01/22/25
04:28
BUN 12
Creatinine 0.8
Estimated Creat Clear > 125
Albumin 3.2 L
[2025-01-22 15:26] VITALS: BP 115/71
[2025-01-22] MEDS: SUBUTEX 4 MG SL (22:10)
[2025-01-22] MEDS: MELATONIN 10 MG PO (22:10)
[2025-01-22 23:20] VITALS: BP 134/71
[2025-01-23] MEDS: NAFCIL 108 MG IV ×5 (01:05→17:00)
[2025-01-23] MEDS: TYLENOL 1000 MG PO ×3 (01:06→17:46)
[2025-01-23 05:03] VITALS: BMI 22.7
[2025-01-23] MEDS: VANCOCIN 530 MG IV (05:26)
[2025-01-23 07:32] VITALS: BP 126/75
[2025-01-23] MEDS: VITAMIN B1 100 MG PO (09:09)
[2025-01-23] MEDS: ALDACTONE 25 MG PO (09:09)
[2025-01-23] MEDS: LASIX 40 MG PO (09:09)
[2025-01-23] MEDS: THERAGRAN 1 TABLET PO (09:10)
[2025-01-23] MEDS: SUBUTEX 16 MG SL (09:10)
[2025-01-23] MEDS: MAGNESIUM OXIDE 400 MG PO (09:10)
[2025-01-23] MEDS: COREG 25 MG PO (09:10)
[2025-01-23] MEDS: CATAPRES 0.3 MG PO (09:10)
[2025-01-23] MEDS: LOW STRENGTH ASPIRIN 81 MG PO (09:11)
[2025-01-23] MEDS: HEPARIN 5000 UNITS SC (09:11)
[2025-01-23] MEDS: DESENEX/MITRAZOL/ZEASORB TOPICAL (09:15)
--- NOTE | 2025-01-23 09:59 | W.PN.HOSP.TC ---
Today's Communication/Plan
-
Discharge home today
Assessment / Plan
Assessment / Plan
Impression:
Ottoniel Alonzo is a 39-year-old male with a medical history of polysubstance abuse (skin popping with fentanyl) who was admitted after presentation with altered mental status. He was brought in by his parents with tremors and confusion. His mental
status abruptly declined and he was intubated for airway protection. CT brain showed possible left occipital lobe mass. His blood cultures were positive for MRSA. He was initially managed in the ICU for treatment of encephalopathy and bacteremia.
He was started on IV vancomycin.
Discharged to rehab for IV antibiotic but was not able to get antibiotic the day of discharge and readmitted again to the hospital
Patient completed antibiotic 01/23-last dose at 1800 send will be discharged home.
Assessment/plan:
Septic shock secondary to MRSA/MSSA bacteremia:
- Off vasopressors and downgraded to general medical floors
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
- Afebrile since 12/11, leukocytosis resolved
- Transesophageal echocardiogram 12/06 showed large mitral annulus vegetation
- ID following, continue antibiotics with vancomycin and nafcillin, repeat cultures negative since 12/13
- Continue antibiotics with vancomycin and nafcillin through 01/23/2025 (6 weeks from sterile cultures on 12/13, last dose is nafcillin at 18:00 on 01/23)
- status post 15 tooth extraction 12/25, follow-up CT surgeon recommendation regarding valve replacement
- Repeat KELI 12/29 showed moderately sized partially mobile echodensity attached to the mitral valve annulus and also the posterior leaflet of P1/P2, also showed moderate pericardial effusion
- Awaiting rehab placement for ongoing antibiotic administration and physical therapy.
- Repeat echo 01/11 shows trivial pericardial effusion
- Medically stable
- He was discharged to [facility] on 01/19 to complete his course of IV antibiotics. 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
until they were able to obtain these medications. This is not a reasonable choice medically considering the seriousness of his condition and potential for treatment failure if he were to miss prescribed doses of these critical medications. Case
management had been coordinating with the facility to be sure these medications were available prior to discharge and we were assured that they would be available at the facility when the patient arrived. They were not available. Thus, the patient
had no choice but to return to the hospital to continue his treatment for infective endocarditis.
- Can be discharged home after last dose of antibiotics on 01/23
Pericardial effusion:
- Pericardiocentesis 01/01 with 350 cc of sanguinous output, cultures with no growth to date, drain initially left in place with very minimal output, drain was later removed 01/03
- follow up echo 01/11 shows Trivial pericardial effusion is noted.
Polysubstance abuse:
- Long history of injection drug abuse
- Now doing well with initiation of buprenorphine treatment, currently 16 mg sublingual daily and 4 mg at night which we will continue, also uses Suboxone for chronic myalgias
- Will need coordination with [facility] at time of hospital discharge
- Subutex clinic appointment has been arranged for Wednesday at 10:00 with Sal, a prescription for Subutex has been sent to his pharmacy to bridge gap until clinic appointment
Anemia requiring transfusion
- Transfused 1 unit PRBCs for hemoglobin of 7.2 on 12/19, a second unit PRBCs 12/21 for hemoglobin 6.9, hemoglobin appropriately improved, remained stable around 7.5
- No evidence of active bleeding, will attempt to limit blood draws
- Hemoglobin again dropped below 7.0 on 12/27 and 12/28, he was transfused 2 additional units of PRBCs at that time with subsequent improvement in hemoglobin
- Hemoglobin dropped to 8.1 01/04 possibly due to sanguinous pericardial output, remains hemodynamically stable, hemoglobin stable at 9.2 on repeat H&H
Chronic pain
- Continue Subutex for generalized myalgias which he also uses for addiction therapy
Acute hypoxic respiratory failure.
Ventilation dependent respiratory failure.
12/13
Patient extubated
Acute toxic metabolic encephalopathy:
- EEG with no acute epileptiform activity captured
- Encephalopathy likely multifactorial due to bacteremia, opiate withdrawal, and and suspected septic emboli to brain
- MRI brain consistent with suspicion for septic emboli, repeat CT brain shows stable findings
- Now resolved, patient at baseline mental status, extubated 12/13
Left upper extremity DVT involving brachial vein
Given his multiple scattered acute infarctions with microhemorrhages, patient is high risk for ICH if systemic anticoagulation started
PICC line removed repeat ultrasound shows left brachial vein nonocclusive DVT.
continue subcu heparin.
Hypomagnesemia:
- Resolved, monitor
LE:
- Resolved
Hypokalemia:
- Resolved
- Monitor
Rhabdomyolysis:
- Resolved
Elevated LFTs:
- Suspect due to severe sepsis
- Resolved, monitor with treatment as above
Pancreatitis:
- Resolved
Lactic acidosis:
- Resolved, continue to monitor
CODE STATUS: Full code
DVT prophylaxis: Subcu heparin
Diet: Regular diet
Disposition: Discharge home today.
Total time spent on today's encounter was 58 minutes which included time spent in counseling the patient/family regarding diagnosis and treatment plan as listed above, goals of care, and symptom management.
Anticipated Discharge: Today
Subjective/Interval History
-
Date of Service: January 23, 2025
Patient seen and examined at bedside, denies any chest pain or shortness of breath, no abdominal pain, no nausea, no vomiting, no diarrhea or constipation.
Objective Data
-
Vital Signs:
Vital Signs
Temp Pulse Resp BP Pulse Ox
97.8 F 109 18 126/75 100
01/23/25 07:32 01/23/25 09:10 01/23/25 07:32 01/23/25 09:10 01/23/25 07:32
I&O
01/22/25 01/23/2501/24/25
06:59 06:59 06:59
Intake Total 1800 / 1800 2119 / 2119
Output Total 1000 / 9995 / 2674
Balance 800 / 800 -555 / -555
Physical Exam
-
General: Well Developed
HEENT: Normocephalic and Atraumatic
Respiratory: Rales, Rhonchi and Crackles
Cardiac: Regular Rhythm and S1/S2
Breast: Deferred by me
GI: Soft, Nontender, Nondistended and Normal Bowel Sounds
Genito-urinary: No Costovertebral Tender
Musculoskeletal: No Clubbing, No Cyanosis and No Edema
Skin: Warm
Neuro: Awake and Alert
Psych: Calm
--- NOTE | 2025-01-23 10:01 | W.DCSUMMARY ---
Discharge Summary
Discharge Data
Date of Admission: 01/19/25
Date of Discharge: 01/23/25
Total time spent discharging patient (in min): 40
-
Pending Results: No
Hospital Course
Hospital course
Ottoniel Alonzo is a 39-year-old male with a medical history of polysubstance abuse (skin popping with fentanyl) who was admitted after presentation with altered mental status. He was brought in by his parents with tremors and confusion. His mental
status abruptly declined and he was intubated for airway protection. CT brain showed possible left occipital lobe mass. His blood cultures were positive for MRSA. He was initially managed in the ICU for treatment of encephalopathy and bacteremia.
He was started on IV vancomycin.
Further brain evaluation with MRI showed numerous scattered acute infarctions suggestive of embolic phenomenon with multiple small microhemorrhages. This raised suspicion for septic emboli considering his injection drug use. EEG showed no acute
epileptiform activity. His mental status improved with antibiotic treatment. He was able to be extubated on 12/13. He initially had a left upper extremity PICC line however this was removed after he developed a left brachial vein DVT. He was
unable to be treated with anticoagulation due to his high risk for intracranial hemorrhage considering multiple abnormalities on brain MRI. Another PICC line was placed in his right upper extremity which remains in place.
Transesophageal echocardiogram showed a large mitral annulus vegetation. His antibiotic regimen consisted of vancomycin and nafcillin which he will continue through 01/23/2025 (6 weeks from sterile cultures on 12/13/2024). Repeat transesophageal
echocardiogram showed persistent mitral annulus vegetation but smaller in size, also showed moderate pericardial effusion. And he went pericardiocentesis on 01/01 with 350 cc of sanguinous output. Pericardial drain was left in place with minimal
output and was later removed on 01/03. Repeat echocardiogram on 01/11 showed trivial pericardial effusion. He underwent extraction of 15 teeth on 01/04 in anticipation of potential cardiothoracic surgery. He will need to follow-up closely with
cardiothoracic surgery after completion of his antibiotic regimen for further planning as needed.
He required multiple blood transfusions of PRBCs during this admission. He received 1 unit on 12/19, a second unit on 12/21, 3rd unit on 12/27, and 4th unit on 12/28. His hemoglobin has remained stable since that time.
His HIV screen was negative. However his serologies were positive for hepatitis C infection. He will need outpatient follow-up with a mentally retarded teacher for treatment of his hepatitis C once he is otherwise medically stable.
He has been started on Subutex treatment for chronic myalgias and as an opiate deterrent after returning to baseline mental status. He is currently requiring 16 mg sublingual in the morning and 4 mg at night. He will need to be continued on this
regimen after discharge. This is of critical importance to his health. He is arranging outpatient follow-up with a physician who can manage his Subutex needs after discharge. He has been given information about community resources to assist him
with his chronic opioid addiction.
At time of hospital discharge he was medically stable. He will be discharged to SNF for physical therapy and ongoing IV antibiotics.
Once arrival to SNF, antibiotic was not available and patient returned back to the ER.
Admitted again on 01/19 and completed antibiotic on 01/23
Will be discharged after 6 pm dose.
Total time spent on today's encounter was 40 minutes which included time spent in counseling the patient/family regarding diagnosis and treatment plan as listed above, goals of care, and symptom management. Case was discussed with nursing staff,
specialists, and care coordinators/case management. All labs and imaging personally reviewed by me. Remainder the time spent in detailed review of previous records, lab data, imaging, and other medical provider documentation.
Anticipated Discharge: Today
Discharge Plan
-
Patient Disposition: Home with Home Care
Discharge Diagnosis/Procedures: Septic shock secondary to MRSA/MSSA bacteremia.
Pericardial effusion
Diet: As tolerated
Activity: As tolerated
Other Services: PT and OT
Referrals:
Franky Bridges MD [Active, Cardiology] - 02/20/25 11:20 am
Referral Note: You have a cardiology follow-up appointment at the [place] office. Please call with questions
Gucci Gonzalez MD [Active, Cardiac Surgery] - 02/05/25 8:30 am
Referral Note: Consultation appointment to discuss intervention of Mitral valve.
Prescriptions:
New
buprenorphine HCl 2 mg Tablet, Sublingual
4 mg sublingual HS Qty: 0 0RF
buprenorphine HCl 8 mg Tablet, Sublingual
16 mg sublingual DAILY@0800 Qty: 0 0RF
Continued
Fiber-Caps (psyllium husk)
500 mg PO DAILY
furosemide 40 mg Tablet
40 mg PO DAILY 30 Days Qty: 30 0RF
carvedilol 25 mg Tablet
25 mg PO BID 30 Days Qty: 60 0RF
acetaminophen 325 mg Tablet
650 mg PO Q4HPRN PRN (Reason: fever>100.3/mild pain) Qty: 30 0RF
clonidine HCl 0.3 mg Tablet
0.3 mg PO BID 30 Days Qty: 60 0RF
miconazole nitrate [Miconazorb AF] 2 % Powder
1 applic topical BID Qty: 85 0RF
Rx Instructions:
1 APPLICATION TO coccyx/buttocks, affected areas
spironolactone 25 mg Tablet
25 mg PO BID 30 Days Qty: 60 0RF
magnesium oxide 400 mg (241.3 mg magnesium) Tablet
400 mg PO DAILY 30 Days Qty: 30 0RF
aspirin 81 mg Tablet,Chewable
81 mg PO DAILY 30 Days Qty: 30 0RF
melatonin 5 mg Tablet
10 mg PO HS 30 Days Qty: 60 0RF
thiamine mononitrate (vit B1) 100 mg Tablet
100 mg PO DAILY 30 Days Qty: 30 0RF
multivitamin with folic acid [Tab-A-Clementina] 400 mcg Tablet
1 tab PO DAILY Qty: 30 0RF
Discontinued
buprenorphine HCl 2 mg Tablet, Sublingual
4 mg sublingual HS 30 Days Qty: 60 0RF
buprenorphine HCl 8 mg Tablet, Sublingual
16 mg sublingual DAILY@0800 30 Days Qty: 30 0RF
Nafcillin [Nafcil] 2000 MG
0.9% Sodium Chloride 100 ml [Nss] 100 ML
108 mls/hr IV Q4H
through 01/23/2025
Ordered By: Vicente Michelle MD
Last Taken: 01/19/25 13:15
Patient Comments:
patient reports he received last dose of nafcillin prior to transfer at [facility] he has missed 1 scheduled dose at 5 PM
Vancomycin [Vancocin] 1500 MG
0.9% Sodium Chloride 500 ml [Nss] 500 ML
353.333 mls/hr IV DAILY@0600
through 01/23/2025
Ordered By: Vicente Michelle MD
Last Taken: 01/19/25 06:00
Protocol: None
Protocol Text:
DOSING PER PHARMACY
Please contact pharmacy with any questions.
Discharge Orders:
Discharge Patient (As Directed); Ordered 01/23/25
Ordered By: Vicente Michelle
Discharge Date and Time
Print Language: CUBAN
--- NOTE | 2025-01-23 12:09 | CM ---
CM following re: discharge planning.
Reviewed pt's chart, met with pt and pt's father at bedside.
Pt expressed to me his experience being at [facility] for a few hours and per pt his nurse at [facility] made a strong request to call his father and mother to bring him back to ED. Per pt, his nurse told him that they will not have his
IV medications till next day morning.
Discharge order noted. Both pt and his father are aware that after his evening dose of IV, pt will be discharged. Pt stated he has an appointment at [facility] on Wednesday01/26/25 and pt is scheduling an appointment at
[facility]. Pt stated his father already filled Subutex from the pharmacy that prescribed till Wednesday01/26/25 and after will be followed up with [facility].
D/c plan: home with follow up at [facility] and family support. Father and/or mother to transport.
[2025-01-23 15:36] VITALS: BP 119/79
--- NOTE | 2025-01-23 18:47 | VATNOTE ---
called to pull right PICC line; 45cm retrieved; no bleeding at site. pt instructed to keep arm still for 1/2 hr and may shower in am.
[2025-01-23] MEDS: SUBUTEX 4 MG SL (19:30)
--- NOTE | 2025-01-23 19:43 | PTCARENOTE ---
Patient discharged home with parents. R PICC removed by IV nurse after last dose of IV nafcillin. Vitals taken by tech. This RN reviewed discharge instructions/medications with patient and patient's parents at bedside, all verbalized understanding.
Patient received bedtime dose of PO subutex tonight prior to DC, has prescription per MD for PO subutex for remainder of week until outpatient f/u, states parents have already picked up script from pharmacy and has confirmed the rest of ordered
medications were sent to correct pharmacy per MD. Patient dressed and gathered belongings in room with assistance of parents, taken down to parent's car at [facility] via staff escort and wheelchair.
[2025-01-23 19:44] VITALS: BP 125/72
== END 2025-01-23 19:51 | disposition home or self-care (01) ==
LOC: 2 NORTH 22:10
PROVIDERS: Clinical Nurse Specialist Family Health; ADMITTING PHYSICIAN Internal Medicine; ATTENDING PHYSICIAN General Practice; EMERGENCY PHYSICIAN Emergency Medicine
DX: I33.0 Acute and subacute infective endocarditis (principal); F17.290 Nicotine dependence, other tobacco product, uncomplicated; F11.20 Opioid dependence, uncomplicated; B19.20 Unspecified viral hepatitis C without hepatic coma; I31.39 Other pericardial effusion (noninflammatory); F14.10 Cocaine abuse, uncomplicated; F19.10 Other psychoactive substance abuse, uncomplicated; G89.29 Other chronic pain; G47.00 Insomnia, unspecified; R60.0 Localized edema; Z86.14 Personal history of Methicillin resistant Staphylococcus aureus infection; Z86.73 Personal history of transient ischemic attack (TIA), and cerebral infarction without residual deficits; Z86.718 Personal history of other venous thrombosis and embolism; Z79.82 Long term (current) use of aspirin; Z45.2 Encounter for adjustment and management of vascular access device; Z75.1 Person awaiting admission to adequate facility elsewhere; Z02.2 Encounter for examination for admission to residential institution; Z79.899 Other long term (current) drug therapy; Z86.19 Personal history of other infectious and parasitic diseases; Z87.19 Personal history of other diseases of the digestive system
CPT/HCPCS: 71046; 80053; 85025; 96374; 97161; 99284; G0378

== ENCOUNTER → 2025-02-07 16:05 | Outpatient (REF) | payer MEDICARE, SELFPAY | LOC: RCS 16:05 | PROVIDERS: ATTENDING PHYSICIAN Internal Medicine Cardiovascular Disease; FAMILY PHYSICIAN Internal Medicine | DX: I38 Endocarditis, valve unspecified (principal); I34.0 Nonrheumatic mitral (valve) insufficiency | CPT/HCPCS: 93306 ==